=== PATIENT | female | born 1935 | race Caucasian/White ===

== ENCOUNTER → 2016-06-16 | Outpatient (CLI) | payer BC ==
--- NOTE | 2016-06-16 13:19 | MAMMOGRAPHY REPORT ---
BILATERAL DIGITAL SCREENING MAMMOGRAM WITH CAD: 06/16/2016 CLINICAL HISTORY: Routine screening. Patient has no complaints. TECHNIQUE: Bilateral CC and MLO views were obtained. Current study was also evaluated with a Comput er Aided Detection (CAD) system. COMPARISON: Comparison is made to exams dated: 06/13/2015 mammogram, 06/12/2014 mammogram, 06/08/2013 mammogram, 06/07/2012 mammogram, 06/10/2011 mammogram, and 06/10/2011 ultrasound - [facility]. BREAST COMPOSITION: The tissue of both breasts is heterogeneously dense, which may obscure small ma sses. FINDINGS: There are benign coarse calcifications within the left breast. Stable intramammary lymph nodes in each upper outer quadrant. No suspicious mass, architectural distortion or cluster of new, suspicious microcalcifications is seen. IMPRESSION: ACR BI-RADS CATEGORY 1: NEGATIVE There is no mammographic evidence of malignancy. A 1 year screening mammogram is recommended. The p atient will receive written notification of the results. Approximately 10% of breast cancers are not detected with mammography. A negative mammographic repor t should not delay biopsy if a clinically suggestive mass is present. Ashley Jimenez M.D. ay/:06/16/2016 08:01:23 Microbiology Laboratory Manager: Fiona GREEN(Kalyani)(Ross[place]), [facility] letter sent: Normal 1/2 BI-RADS Code: ACR BI-RADS Category 1: Negative
== END | disposition home or self-care (01) ==
LOC: C.MAMM 07:45
PROVIDERS: ATTEND Family Medicine
DX: Z12.31 Encounter for screening mammogram for malignant neoplasm of breast (principal)

== ENCOUNTER → 2017-06-22 | Outpatient (CLI) | payer BC ==
--- NOTE | 2017-06-23 15:30 | MAMMOGRAPHY REPORT ---
BILATERAL DIGITAL SCREENING MAMMOGRAM TOMOSYNTHESIS WITH CAD: 06/22/2017 CLINICAL HISTORY: Routine screening. Patient has no complaints. TECHNIQUE: Breast tomosynthesis in addition to standard 2D mammography was performed. Current study was also evaluated with a Computer Aided Detection (CAD) system. COMPARISON: Comparison is made to exams dated: 06/16/2016 mammogram, 06/13/2015 mammogram, 06/12/2014 m ammogram, 06/08/2013 mammogram, 06/07/2012 mammogram, and 06/04/2011 mammogram - [facility]. BREAST COMPOSITION: The tissue of both breasts is heterogeneously dense, which may obscure small mas ses. FINDINGS: The parenchymal pattern is similar to prior mammograms. There are stable benign coarse an d round calcifications in the breasts. No developing mass, architectural distortion or cluster of hernandez spicious microcalcifications is seen in either breast. IMPRESSION: ACR BI-RADS CATEGORY 2: BENIGN There is no mammographic evidence of malignancy. A 1 year screening mammogram is recommended. The pa tient will receive written notification of the results. Approximately 10% of breast cancers are not detected with mammography. A negative mammographic report should not delay biopsy if a clinically suggestive mass is present. Ashley Jimenez M.D. ay/:06/22/2017 15:26:14 Database Consultant: Aminta GREEN(Kalyani)(M), [facility] letter sent: Normal 1/2 BI-RADS Code: ACR BI-RADS Category 2: Benign
== END | disposition home or self-care (01) ==
LOC: C.MAMM 10:04
PROVIDERS: ATTEND Family Medicine
DX: Z12.31 Encounter for screening mammogram for malignant neoplasm of breast (principal)

== ENCOUNTER 2018-09-07 09:24 | Inpatient (IN) ==
--- OUTSIDE RECORDS SUMMARY | 2018-09-07 09:27 | External Medical Summary | Continuity of Care Document ---
:1935 Author Name Jannette Prado, Provider Address Unavailable Unavailable , Care Team Providers Name Role Phone Case Patricia BROCK Unavailable [email or web address] Unavailable Unavailable Assessments Assessed Problems:Ischemic stroke Problems Ischemic stroke (434.91) (I63.9) Hypothyroidism (244.9) (E03.9) Hyperlipidemia (272.4) (E78.5) Hypertension (401.9) (I10) Type 2 diabetes mellitus (250.00) (E11.9) Allergies and Adverse Reactions No Known Drug Allergies (Allergy) Medications Lisinopril-hydroCHLOROthiazide 20-12.5 MG Oral Tablet; TAKE 1 TABLET DAILY. Refills: 0 Magnesium 200 MG Oral Tablet; TAKE 1 TABLET DAILY DIRECTE D. Refills: 0 Vitamin D3 1000 UNIT Oral Capsule; TAKE DIRECTED. Refills: 0 Flaxseed Oil 1000 MG Oral Capsule; TAKE DIRECTED. Refills: 0 Vwslp-Nr-Xzzs TABS; USE DIRECTED. Refills: 0 Multi-Vitamins Oral Tablet; TAKE 1 TABLET DAILY. Refills: 0 Calcium 600+D Plus Minerals TABS; TAKE 1 TABLET DAILY DIR ECTED. Refills: 0 Co Q10 100 MG Oral Capsule; TAKE 1 CAPSULE Daily Refills: 0 Levothyroxine Sodium 175 MCG Oral Tablet; TAKE 1 TABLET FELICIA Y. Quantity: 90 Refills: 3 Clopidogrel Bisulfate 75 MG Oral Tablet; TAKE 1 TABLET DAILY . 30 Tablet Bottle Refills: 0 Atorvastatin Calcium 40 MG Oral Tablet; TAKE 1 TABLET AT BED TIME. 90 Tablet Bottle Refills: 0 Aspirin 81 MG TABS; TAKE 1 TABLET DAILY. Refills: 3 metFORMIN HCl - 500 MG Oral Tablet; TAKE 1 TABLET TWICE FELICIA Y WITH FOOD. Refills: 0 Procedures History of Eye Surgery Status: Completed Immunizations Immunizations not documented Family History Mother No pertinent family history (V49.89) (Z78.9) Status: Active Social History - Smoking Status Never smoker Interventions Follow-ups/ReferralsFollow-up as needed; Done: 10 Feb 2018Discussion/SummaryLeft MCA ischemic stroke-this an 82-year-old female presents for follow-up with recent right-sided weakness and dysarthria. CT of the head was negative however she could not have an MRI due to coil behind the right eye. Clinical symptoms fit with left MCA territory. She has mild carotid stenosis and moderate right vertebral artery stenosis, recommend continue with medical therapy. She was on aspirin and Plavix was added. This is recommended for 2-3 months then discontinue aspirin and continue Plavixfor secondary stroke prevention. Continue statin for stroke prevention. She was counseled about regular exercise and healthy diet.Continue control of vascular risk factors including blood pressure goal 110/70 to 120/80, LDL less than 100, total cholesterol 100-200, hemoglobin A1c less than 6.5 percent. Continue home health therapies including speech therapy. Continue assistive device for the time being until cleared by therapy. Follow up with Neurology as needed. Plan of Treatment Planned Observations Planned Goals not documented Results No Known Results Results not documented Encounters Appointment; Case, DELMY Gomez 10-Feb-2018 15:00 Encounter Diagnosis: Problem not documented
[2018-09-07 10:27] LABS: Appearance Urine Cloudy (Clear); Bacteria Urine Automated 3+ (Negative); Bilirubin Urine Negative (Negative); Blood Urine Trace (Negative); Color Urine Yellow; Epithelial Cell Urine Auto >30 /lpf (0-5); Glucose Urine UA Negative (Negative); Ketones Urine Trace (Negative); Leukocyte Esterase Urine 1+ (Negative); Nitrite Urine Positive (Negative); Protein Urine Negative (Negative); RBC Urine Automated 0-4 /hpf (0-4); Specific Gravity Urine 1.021 (1.000-1.030); Urobilinogen Urine Negative (Negative)
[2018-09-07 10:55] LABS: Basophils # (auto) 0.03 K/uL (0-0.2); Basophils % (auto) 0.3 %; Eosinophils # (auto) 0.05 K/uL (0-0.5); Eosinophils % (auto) 0.5 %; Hematocrit (blood only) 33.5 % (37-47); Hemoglobin 11.1 g/dL (12.0-16.0); Immature Granulocytes # (auto) 0.03 K/uL (0.00-0.02); Immature Granulocytes % (auto) 0.3 %; Lymphocytes # (auto) 1.51 K/uL (1.2-3.4); Lymphocytes % (auto) 15.5 %; Mean Corpuscular Hgb Conc 33.1 g/dL (32-36); Mean Corpuscular Volume 81.1 fL (80-100); Mean Platelet Volume 9.5 fL (7.4-10.4); Monocytes # (auto) 0.72 K/uL (0.11-0.59); Monocytes % (auto) 7.4 %; Platelet Count 335 K/uL (130-400); RDW Coefficient of Variation 15.8 % (11.5-14.5); RDW Standard Deviation 46.7 fL (36.4-46.3); Red Blood Count 4.13 M/uL (4.2-5.4); White Blood Count 9.74 K/uL (4.8-10.8)
[2018-09-07 11:18] LABS: Alanine Aminotransferase 17 U/L (12-78); Albumin Level 3.2 gm/dl (3.4-5.0); Aspartate Aminotransferase 14 U/L (15-37); BUN Creatinine Ratio 22.5 (10-20); Blood Urea Nitrogen 36 mg/dl (7-18); Calcium 9.9 mg/dl (8.5-10.1); Carbon Dioxide 29 mmol/L (21-32); Chloride 100 mmol/L (98-107); Est GFR (African American) 34.4; Est GFR (Non-African American) 29.7; Glucose 98 mg/dl (70-99); Potassium 3.6 mmol/L (3.5-5.1); Sodium 135 mmol/L (136-145)
[2018-09-07 11:28] LABS: Albumin Globulin Ratio 0.8 (0.9-2); Alkaline Phosphatase 66 U/L (45-117); Bilirubin,Total 0.6 mg/dl (0.2-1); Globulin 4.2 gm/dl (2.5-4.0); Total Protein 7.4 gm/dl (6.4-8.2); Troponin I 0.129 ng/ml (0-0.045)
--- NOTE | 2018-09-07 11:38 | Ultrasound Report ---
ULTRASOUND RIGHT UPPER QUADRANT ABDOMEN CLINICAL HISTORY: Upper abdominal pain. COMPARISON STUDY: No priors. TECHNIQUE: Real-time, grayscale, and color flow sonography of the right upper quadrant of the abdomen was performed. Images are reviewed in the transverse and longitudinal planes. FINDINGS: Liver: The liver is normal in size and echotexture. There is no intrahepatic biliary ductal dilatatio n. The main portal vein is patent. Gallbladder: The gallbladder is normal in appearance. No gallstones are identified. There is no gallb ladder wall thickening or pericholecystic fluid. A sonographic Jones's sign is reportedly absent. Th e common bile duct measures up to 0.6 cm in diameter. Pancreas: Visualized portions of the pancreatic head and body are normal in appearance. The splenic v ein is patent. Right kidney: Survey images of the right kidney demonstrate normal size and echotexture. There is no hydronephrosis. Ascites: None. IMPRESSION: Unremarkable sonographic assessment of the right upper quadrant. No gallstones are identi fied. Electronically signed by: Carlos Atwood M.D. 09/07/2018 11:36 AM
--- NOTE | 2018-09-07 11:51 | XRay Report ---
PA CHEST WITH ABDOMINAL SERIES CLINICAL HISTORY: Generalized abdominal pain. FINDINGS: A PA chest radiograph is obtained. No prior studies are available for comparison at the time of dicta tion. The heart is top normal for projection. There is atherosclerotic calcification of the thoraci c aorta. The lungs appear hyperinflated. Nonspecific interstitial thickening is likely chronic. There is bibasilar scarring/atelectasis. No airspace consolidation or pleural effusion is identified. No p neumothorax is seen. The skeletal structures are osteopenic. The bony thorax is grossly intact. Degen erative change is noted in the shoulders and thoracic spine. Supine and erect abdominal radiographs are correlated with abdominal ultrasound dated 09/07/2018. Ther e is a nonobstructed abdominal bowel gas pattern. Moderate colonic fecal retention is observed. No ev idence of intraperitoneal free air is seen. There are no abnormal abdominal calcifications. There is mild lumbosacral spondylosis. The lumbosacral spine and bony pelvis appear intact. IMPRESSION: 1. No active disease in the chest. 2. Nonobstructed abdominal bowel gas pattern noting moderate colonic fecal retention. Electronically signed by: Carlos Atwood M.D. 09/07/2018 11:50 AM
[2018-09-07] MEDS ORDERED: cefTRIAXone SODIUM 2,000 MG in DEXTROSE 5% 50 ML IV STA (12:05)
--- NOTE | 2018-09-07 12:31 | CT Scan Report ---
CT SCAN OF THE ABDOMEN AND PELVIS WITHOUT IV CONTRAST CLINICAL HISTORY: Upper abdominal pain. COMPARISON STUDY: Abdominal radiographs ultrasound dated 09/07/2018. TECHNIQUE: CT scan of the abdomen and pelvis is performed from the lung bases to the proximal femora. Images are reviewed in the axial, sagittal, and coronal planes. IV contrast was not administered for this examination as per the referring clinician. Note that the examination was performed in suboptim al fashion without oral and IV contrast. A dose lowering technique was utilized adhering to the princ iplkye of [place]. CT DOSE: 291.25 mGy.cm FINDINGS: Lung bases: The heart is top normal in size and there is trace pericardial fluid. The lung bases are clear noting bibasilar scarring/atelectasis. Liver: The unenhanced liver is normal in size, contour, and attenuation. There is no intrahepatic ish iary ductal dilatation. Gallbladder: Unremarkable. Spleen: Normal in size and attenuation. Pancreas: The unenhanced pancreas is moderately atrophic and grossly unremarkable. Adrenal glands: Unremarkable. Kidneys: The unenhanced kidneys demonstrate cortical atrophy and are without hydronephrosis. There ar e no renal calculi identified. There is no evidence of contour deforming renal mass lesion. Abdominal vasculature: The abdominal aorta is normal in course and caliber noting moderate atheroscle rotic calcification. Bowel: There is moderate colonic fecal retention. No bowel obstruction is seen. There are scattered c olonic diverticula without CT evidence of acute diverticulitis. The appendix is normal as visualized . Peritoneum: There is no intraperitoneal free air or abdominal ascites. Lymphadenopathy: None. Pelvic viscera: The bladder, uterus, and adnexa are normal as imaged. Skeletal structures: The skeletal structures are osteopenic. There is [id number] lumbosacral sp ondylosis and scoliosis. No lytic or blastic lesions are seen. IMPRESSION: 1. Suboptimal examination without oral and IV contrast. 2. There are no acute infectious or inflammatory findings in the abdomen or pelvis. 3. Moderate constipation. 4. Additional findings as above. Electronically signed by: Carlos Atwood M.D. 09/07/2018 12:30 PM
--- NOTE | 2018-09-07 14:18 | History & Physical Report ---
Date of Service September 07, 2018 Assessment & Plan (1) Elevated troponin: concerning for possible ACS vs demand ischemia vs unstable angina vs elevated due to renal failure. would continue to trend serial troponin and EKG, patient is chest pain free with non-specific EKG changes. IF troponin remains elevated would consider clamp truck driver consult. continue ASA and plavix. start low dose beta leonor (2) Upper abdominal pain: likely 2/[address] scan negative for gallbladder or obstruction. continue supportive therapy with bowel regimen, antiemetics and pain control tylenol Present on Admission?: Yes (3) UTI (urinary tract infection): Continue IV antibiotics with rocephin. follow up urine cultures. gentle IV fluid hydration Present on Admission?: Yes (4) T2DM (type 2 diabetes mellitus): continue Insulin Sliding scale with accucheck monitoring Present on Admission?: Yes (5) HTN (hypertension): stable HOLD lisinopril due to renal failure Present on Admission?: Yes (6) Carotid stenosis, bilateral: Present on Admission?: Yes (7) CVA (cerebral vascular accident): stable on ASA/ plavix (8) Constipation: aggressive bowel regimen with colace, senna, miralax Present on Admission?: Yes (9) Acute kidney injury: likely due to infection. should improve once urinary tract infection has been adequately treated. continue IV fluids and Rocephin. trend closely and avoid nephrotoxic agents. Present on Admission?: Yes History of Present Illness Chief Complaint: fever, weakness, chest pain Primary Care Provider: Jaguar Kelly 82y/o F PmHx CAD, DMII, CVA, HTN, Carotid stenosis, Who presented to the ED with complaint of fever, generalized weakness, Poor appetite and chest pain over several days. Patient herself does not have any complaints at this time. Her son states that she had poor appetite and complained of lower chest pain and right upper abdominal pain. Subjective fever at home. Here in ED, tempt was normal. Labs showed troponin of 0.129 EKG showed nonspecific T wave changes, no ST abnormalities. Urinalysis showed many WBC, positive nitrite / LE She was given 1 dose of rocephin IV. Allergies Allergy/AdvReac Type Severity Reaction Status Date / Time SULFA Allergy Unknown Unknown Uncoded 09/07/18 10:43 VANTINE Allergy Unknown Unknown Uncoded 09/07/18 10:43 Home Medications Home Medications Medication Instructions Recorded Confirmed Type Calcium 600 + D(3) 1 tab PO PM 01/03/18 09/07/18 History aspirin [Aspir-81] 81 mg PO PM 01/03/18 09/07/18 History nmqtktpbpoz-F7-Pekwfvmuy serr 2 tab PO PM #0 01/03/18 09/07/18 History [Osteo Bi-Flex (5-Loxin)] multivitamin [Multiple Vitamins] 1 tab PO PM 01/03/18 09/07/18 History clopidogrel 75 mg PO QAM #30 tab 01/06/18 09/07/18 Rx flaxseed oil 1,000 mg PO Q OTHER DAY 09/07/18 09/07/18 History levothyroxine 137 mcg PO QAM 09/07/18 09/07/18 History lisinopril 20 mg PO QAM MDD qam 09/07/18 09/07/18 History Past Med/Surg History Medical History Diabetes Dyslipidemia Hypertension Hypothyroidism Surgical History History of cataract surgery Family History Mother , age 69 with heart disease No problems noted. Father No problems noted. Other Family history non-contributory Social History Preferred Language: Swedish Communication Ability: Effective Beliefs That Will Affect Care: None Current Living Situation: Family Current Living Situation Comment: with son Feels Safe at Home: Yes Smoking Status: Never smoker Hx Alcohol Use: No Hx Substance Use: No Review of Systems Constitutional: + fever, + chills and + weakness Eyes: no decreased night vision, no eye pain and no photophobia Ear, Nose, Mouth, Throat: no dizziness Respiratory: no dyspnea and no dyspnea on exertion Cardiovascular: + chest pain Gastrointestinal: + abdominal pain; no heartburn and no vomiting Integumentary: no rash Neurologic: + generalized weakness Physical Exam 2 Constitutional: WD/WN, vitals as above well developed, well nourished and cooperative; no acute distress Eyes: PERRL, conjunctivae normal, anicteric sclerae ENMT: external ear and nose normal, oropharynx normal Respiratory: normal respiratory effort, lungs clear to auscultation Cardiovascular: RRR, no murmur, no edema Chest (Breasts): normal inspection/palpation of breasts Gastrointestinal (Abdomen): normal bowel sounds, soft, nontender, no hepatosplenomegaly Musculoskeletal: no cyanosis or clubbing, extremities motor strength 5/5 Skin: no rashes, warm and dry Neurologic: PERRL, EOMI, accommodation nl, no face palsy, no dysarthria difficulty hearing Psychiatric: A+Ox3, euthymic affect Results & Data Vital Signs (Past 12 Hours) Vital Signs Temp Pulse Resp BP Pulse Ox 09/07/18 13:20 76 17 98 09/07/18 13:10 73 19 98 09/07/18 13:00 70 21 170/69 H 98 09/07/18 12:50 82 20 98 09/07/18 12:40 80 22 97 09/07/18 12:31 85 27 H 98 09/07/18 12:30 83 16 147/83 H 99 09/07/18 12:21 81 17 09/07/18 11:00 68 16 09/07/18 10:50 66 15 09/07/18 10:40 69 17 09/07/18 10:30 69 18 09/07/18 10:20 67 18 96 09/07/18 10:10 71 16 97 09/07/18 10:01 77 18 124/45 L 98 09/07/18 10:00 78 16 97 09/07/18 09:53 73 18 97 09/07/18 09:49 75 20 117/60 98 09/07/18 09:31 36.7 C 91 H 20 83/58 L 98 Laboratory Results 09/07/18 10:44 09/07/18 10:[address] SCAN OF THE ABDOMEN AND PELVIS WITHOUT IV CONTRAST CLINICAL HISTORY: Upper abdominal pain. COMPARISON STUDY: Abdominal radiographs ultrasound dated 09/07/2018. TECHNIQUE: CT scan of the abdomen and pelvis is performed from the lung bases to the proximal femora. Images are reviewed in the axial, sagittal, and coronal planes. IV contrast was not administered for this examination as per the referring clinician. Note that the examination was performed in suboptimal fashion without oral and IV contrast. A dose lowering technique was utilized adhering to the principles of ALARA. CT DOSE: 291.25 mGy.cm FINDINGS: Lung bases: The heart is top normal in size and there is trace pericardial fluid. The lung bases are clear noting bibasilar scarring/atelectasis. Liver: The unenhanced liver is normal in size, contour, and attenuation. There is no intrahepatic biliary ductal dilatation. Gallbladder: Unremarkable. Spleen: Normal in size and attenuation. Pancreas: The unenhanced pancreas is moderately atrophic and grossly unremarkable. Adrenal glands: Unremarkable. Kidneys: The unenhanced kidneys demonstrate cortical atrophy and are without hydronephrosis. There are no renal calculi identified. There is no evidence of contour deforming renal mass lesion. Abdominal vasculature: The abdominal aorta is normal in course and caliber noting moderate atherosclerotic calcification. Bowel: There is moderate colonic fecal retention. No bowel obstruction is seen. There are scattered colonic diverticula without CT evidence of acute diverticulitis. The appendix is normal as visualized. Peritoneum: There is no intraperitoneal free air or abdominal ascites. Lymphadenopathy: None. Pelvic viscera: The bladder, uterus, and adnexa are normal as imaged. Skeletal structures: The skeletal structures are osteopenic. There is uznn-yh-tvfevpno lumbosacral spondylosis and scoliosis. No lytic or blastic lesions are seen. IMPRESSION: 1. Suboptimal examination without oral and IV contrast. 2. There are no acute infectious or inflammatory findings in the abdomen or pelvis. 3. Moderate constipation. 4. Additional findings as above. ULTRASOUND RIGHT UPPER QUADRANT ABDOMEN CLINICAL HISTORY: Upper abdominal pain. COMPARISON STUDY: No priors. TECHNIQUE: Real-time, grayscale, and color flow sonography of the right upper quadrant of the abdomen was performed. Images are reviewed in the transverse and longitudinal planes. FINDINGS: Liver: The liver is normal in size and echotexture. There is no intrahepatic biliary ductal dilatation. The main portal vein is patent. Gallbladder: The gallbladder is normal in appearance. No gallstones are identified. There is no gallbladder wall thickening or pericholecystic fluid. A sonographic Jones's sign is reportedly absent. The common bile duct measures up to 0.6 cm in diameter. Pancreas: Visualized portions of the pancreatic head and body are normal in appearance. The splenic vein is patent. Right kidney: Survey images of the right kidney demonstrate normal size and echotexture. There is no hydronephrosis. Ascites: None. IMPRESSION: Unremarkable sonographic assessment of the right upper quadrant. No gallstones are identified. PA CHEST WITH ABDOMINAL SERIES CLINICAL HISTORY: Generalized abdominal pain. FINDINGS: A PA chest radiograph is obtained. No prior studies are available for comparison at the time of dictation. The heart is top normal for projection. There is atherosclerotic calcification of the thoracic aorta. The lungs appear hyperinflated. Nonspecific interstitial thickening is likely chronic. There is bibasilar scarring/atelectasis. No airspace consolidation or pleural effusion is identified. No pneumothorax is seen. The skeletal structures are osteopenic. The bony thorax is grossly intact. Degenerative change is noted in the shoulders and thoracic spine. Supine and erect abdominal radiographs are correlated with abdominal ultrasound dated 09/07/2018. There is a nonobstructed abdominal bowel gas pattern. Moderate colonic fecal retention is observed. No evidence of intraperitoneal free air is seen. There are no abnormal abdominal calcifications. There is mild lumbosacral spondylosis. The lumbosacral spine and bony pelvis appear intact. IMPRESSION: 1. No active disease in the chest. 2. Nonobstructed abdominal bowel gas pattern noting moderate colonic fecal retention. PG Care Time/CCT Total # of Minutes Spent Total Time Spent with Patient: Total time spent is greater than 50% in coordination of care (as documented) at patient's floor/unit and/or counseling patient: (1) UTI (urinary tract infection) Hematuria presence: without hematuria Urinary tract infection type: site unspecified Qualified Code(s): N39.0 - Urinary tract infection, site not specified (2) CVA (cerebral vascular accident) CVA mechanism: unspecified Qualified Code(s): I63.9 - Cerebral infarction, unspecified
[2018-09-07] MEDS ORDERED: GLUCOSE 40% GEL 15 GM TUBE PO PRN (16:01)
[2018-09-07] MEDS ORDERED: DEXTROSE 50% 50 ML SYRINGE IV PRN (16:01)
[2018-09-07] MEDS ORDERED: ACETAMINOPHEN 325 MG TAB PO PRN (16:01)
[2018-09-07] MEDS ORDERED: NON-FORMULARY MEDICATION (Flaxseed Oil 1,000 MG) PO SCH (16:01)
[2018-09-07] MEDS ORDERED: ONDANSETRON INJ 2 MG/ML 2 ML VIAL IV PRN (16:01)
[2018-09-07] MEDS ORDERED: CARBOHYDRATES FOR HYPOGLYCEMIA PO PRN (16:01)
[2018-09-07] MEDS ORDERED: SODIUM CHLORIDE 0.9% 1000ML 1,000 ML IV SCH (16:01)
[2018-09-07] MEDS ORDERED: GLUCOSE 10 TABS/TUBE PO PRN (16:01)
[2018-09-07] MEDS ORDERED: ALUMINUM/MAGNESIUM SUSP 30 ML UDC PO PRN (16:01)
[2018-09-07] MEDS ORDERED: GLUCAGON FOR INJ 1 MG VIAL SQ PRN (16:01)
[2018-09-07] MEDS ORDERED: PHARMACY GLYCEMIC MGMT CONSULT PRN (16:18)
[2018-09-07] MEDS ORDERED: cloNIDine HCl 0.1 MG TAB PO ONE (16:19)
--- NOTE | 2018-09-07 16:44 | Emergency Department Note ---
Entered by Nicole Suarez acting as a scribe for Gregg Smith MD History of Present Illness General Chief complaint: Weakness Stated complaint: WEAKNESS,NOT EATING, HX OF STROKE 01/16 Source: patient and family History of Present Illness Provider complaint: upper abdominal pain Onset (ago): day(s) 2 Location: abdomen Quality: + dull Associated symptoms: + denies other symptoms (diarrhea, black or bloody stools, and problems with urination) and + weakness; no fever/chills, no nausea/vomiting and no shortness of breath The patient is an 82 year old female who presents to the Emergency Department with complaints of upper abdominal pain for the last 2 days. She states that her pain radiates to both sides and describes the pain as being dull. She states that her pain comes and goes. The patient reports that eating does not exacerbate her pain. The patient states that she has not eaten much over the last 2 days as she was not hungry. She denies a history of a cholecystectomy. The patient denies having shortness of breath, vomiting, fevers, diarrhea, black or bloody stools, and problems with urination. The patient states that she does feel generally weak. Her family states that the patient has barely eaten over the last 5 days. Home Medications Home Medications Medication Instructions Recorded Confirmed Type Calcium 600 + D(3) 1 tab PO PM 01/03/18 09/07/18 History aspirin [Aspir-81] 81 mg PO PM 01/03/18 09/07/18 History [id number]-Adrjkecni serr 2 tab PO PM #0 01/03/18 09/07/18 History [Osteo Bi-Flex (5-Loxin)] multivitamin [Multiple Vitamins] 1 tab PO PM 01/03/18 09/07/18 History clopidogrel 75 mg PO QAM #30 tab 01/06/18 09/07/18 Rx flaxseed oil 1,000 mg PO Q OTHER DAY 09/07/18 09/07/18 History levothyroxine 137 mcg PO QAM 09/07/18 09/07/18 History lisinopril 20 mg PO QAM MDD qam 09/07/18 09/07/18 History Allergies Allergy/AdvReac Type Severity Reaction Status Date / Time SULFA Allergy Unknown Unknown Uncoded 09/07/18 10:43 VANTINE Allergy Unknown Unknown Uncoded 09/07/18 10:43 Past Med/Surg History Medical History Diabetes Dyslipidemia Hypertension Hypothyroidism Surgical History History of cataract surgery Family History Mother , age 69 with heart disease No problems noted. Father No problems noted. Other Family history non-contributory Social History Preferred Language: [place] Communication Ability: Effective Beliefs That Will Affect Care: None Current Living Situation: Family Current Living Situation Comment: with son Feels Safe at Home: Yes Smoking Status: Never smoker Hx Alcohol Use: No Hx Substance Use: No Review of Systems See HPI for pertinent positives & negatives. and A total of 10 systems reviewed and were otherwise negative Physical Exam Vital Signs Vital Signs - 24 hr 09/07/18 09:31 09/07/18 09:38 09/07/18 09:49 Temperature 36.7 C Temperature Source Oral Sepsis Recent Fever Within 48 Hours No Sepsis New/Unexplained Change in Mental Status No Sepsis Action Taken by Nursing No Action Required Pulse Oximetry Post Tiitration 97 Pulse Rate 91 H 75 Pulse Rate from SpO2 Sensor 74 Respiratory Rate 20 20 Blood Pressure 83/58 L 117/60 Blood Pressure Mean 66 79 Pulse Oximetry 98 98 Oxygen Delivery Method Room Air Room Air 09/07/18 09:53 09/07/18 10:00 09/07/18 10:01 Temperature Temperature Source Sepsis Recent Fever Within 48 Hours Sepsis New/Unexplained Change in Mental Status Sepsis Action Taken by Nursing Pulse Oximetry Post Tiitration Pulse Rate 73 78 77 Pulse Rate from SpO2 Sensor 73 77 77 Respiratory Rate 18 16 18 Blood Pressure 124/45 L Blood Pressure Mean 71 Pulse Oximetry 97 97 98 Oxygen Delivery Method 09/07/18 10:10 09/07/18 10:20 09/07/18 10:30 Temperature Temperature Source Sepsis Recent Fever Within 48 Hours Sepsis New/Unexplained Change in Mental Status Sepsis Action Taken by Nursing Pulse Oximetry Post Tiitration Pulse Rate 71 67 69 Pulse Rate from SpO2 Sensor 71 68 Respiratory Rate 16 18 18 Blood Pressure Blood Pressure Mean Pulse Oximetry 97 96 Oxygen Delivery Method Room Air 09/07/18 10:40 09/07/18 10:50 09/07/18 11:00 Temperature Temperature Source Sepsis Recent Fever Within 48 Hours Sepsis New/Unexplained Change in Mental Status Sepsis Action Taken by Nursing Pulse Oximetry Post Tiitration Pulse Rate 69 66 68 Pulse Rate from SpO2 Sensor Respiratory Rate 17 15 16 Blood Pressure Blood Pressure Mean Pulse Oximetry Oxygen Delivery Method 09/07/18 12:21 09/07/18 12:30 09/07/18 12:31 Temperature Temperature Source Sepsis Recent Fever Within 48 Hours Sepsis New/Unexplained Change in Mental Status Sepsis Action Taken by Nursing Pulse Oximetry Post Tiitration Pulse Rate 81 83 85 Pulse Rate from SpO2 Sensor 84 85 Respiratory Rate 17 16 27 H Blood Pressure 147/83 H Blood Pressure Mean 104 Pulse Oximetry 99 98 Oxygen Delivery Method 09/07/18 12:40 09/07/18 12:50 09/07/18 13:00 Temperature Temperature Source Sepsis Recent Fever Within 48 Hours Sepsis New/Unexplained Change in Mental Status Sepsis Action Taken by Nursing Pulse Oximetry Post Tiitration Pulse Rate 80 82 70 Pulse Rate from SpO2 Sensor 80 81 72 Respiratory Rate 22 20 21 Blood Pressure 170/69 H Blood Pressure Mean 102 Pulse Oximetry 97 98 98 Oxygen Delivery Method 09/07/18 13:10 09/07/18 13:20 09/07/18 13:30 Temperature Temperature Source Sepsis Recent Fever Within 48 Hours Sepsis New/Unexplained Change in Mental Status Sepsis Action Taken by Nursing Pulse Oximetry Post Tiitration Pulse Rate 73 76 91 H Pulse Rate from SpO2 Sensor 73 76 92 H Respiratory Rate 19 17 18 Blood Pressure Blood Pressure Mean Pulse Oximetry 98 98 99 Oxygen Delivery Method 09/07/18 13:31 09/07/18 13:40 09/07/18 13:50 Temperature Temperature Source Sepsis Recent Fever Within 48 Hours Sepsis New/Unexplained Change in Mental Status Sepsis Action Taken by Nursing Pulse Oximetry Post Tiitration Pulse Rate 87 94 H 84 Pulse Rate from SpO2 Sensor 89 96 H 84 Respiratory Rate 20 15 19 Blood Pressure 156/90 H 156/90 H Blood Pressure Mean 112 112 Pulse Oximetry 98 98 97 Oxygen Delivery Method 09/07/18 14:00 09/07/18 14:10 09/07/18 14:22 Temperature Temperature Source Sepsis Recent Fever Within 48 Hours Sepsis New/Unexplained Change in Mental Status Sepsis Action Taken by Nursing Pulse Oximetry Post Tiitration Pulse Rate 80 90 106 H Pulse Rate from SpO2 Sensor 80 92 H Respiratory Rate 19 22 18 Blood Pressure 178/74 H Blood Pressure Mean 108 Pulse Oximetry 98 98 Oxygen Delivery Method 09/07/18 14:23 09/07/18 14:30 09/07/18 14:31 Temperature Temperature Source Sepsis Recent Fever Within 48 Hours Sepsis New/Unexplained Change in Mental Status Sepsis Action Taken by Nursing Pulse Oximetry Post Tiitration Pulse Rate 83 84 79 Pulse Rate from SpO2 Sensor 83 84 80 Respiratory Rate 19 19 20 Blood Pressure 176/87 H 158/76 H Blood Pressure Mean 116 103 Pulse Oximetry 96 97 98 Oxygen Delivery Method 09/07/18 14:40 09/07/18 14:50 09/07/18 15:00 Temperature Temperature Source Sepsis Recent Fever Within 48 Hours Sepsis New/Unexplained Change in Mental Status Sepsis Action Taken by Nursing Pulse Oximetry Post Tiitration Pulse Rate 85 85 89 Pulse Rate from SpO2 Sensor 82 83 90 Respiratory Rate 16 24 23 Blood Pressure Blood Pressure Mean Pulse Oximetry 98 98 98 Oxygen Delivery Method 09/07/18 15:02 09/07/18 15:10 Temperature Temperature Source Sepsis Recent Fever Within 48 Hours Sepsis New/Unexplained Change in Mental Status Sepsis Action Taken by Nursing Pulse Oximetry Post Tiitration Pulse Rate 80 71 Pulse Rate from SpO2 Sensor 79 73 Respiratory Rate 18 21 Blood Pressure 180/65 H Blood Pressure Mean 103 Pulse Oximetry 98 98 Oxygen Delivery Method Constitutional: Vital signs reviewed. Eyes: Pupils are equal round reactive to light. Conjunctiva are noninjected. ENT: Pharynx is clear without erythema or exudate. Mucous membranes are moist. Neck supple without meningeal signs. Respiratory: Clear to auscultation bilaterally. Breath sounds are equal bilaterally. Cardiovascular: Regular rate and rhythm. No rubs or gallops. GI: Soft, nondistended and nontender. Bowel sounds are present. Musculoskeletal: No peripheral edema. No lower extremity tenderness. No CVA tenderness. Integumentary: No cyanosis. Neurological: The patient is awake and alert. No focal deficits. Psychiatric: Normal affect. Course 0958: The patient was evaluated in room A4B. A history and physical were performed. 1205: I spoke to the patient and her son about her test results. I advised her to stay. She says that she has no pain in her abdomen or chest and she is agreeable to a CT scan to evaluate for a possible stone. When the patient was hospitalized in December 2017, she was noted to have a positive trop at this time. She had an echocardiogram that did not show any wall motion abnormalities. She had no complaints and was discharged. 1244: I discussed her CT results with them. We will do a repeat ECG. 1249: I discussed the patient's case with Dr. Cabrera who will evaluate the patient for further management. Consultations Consultation #1: Dr. Cabrera Time: 12:49 Administered Medications Discontinued Medications Ceftriaxone Sodium 2,000 mg/ (Dextrose) 70 mls @ 100 mls/hr IV NOW STA Stop: 09/07/18 12:46 Last Infusion: 09/07/18 13:09 Dose: 0 mls/hr Documented by: [id number] Admin: 09/07/18 12:27 Dose: 100 mls/hr Documented by: [id number] Medical Decision Making Differential Diagnosis Differentials include cholelithiasis, cholecystitis, PUD, pancreatitis, cardiac, bowel obstruction, and mesenteric ischemia. Medical Records Attestation: I reviewed the patient's medical records. I did perform a limited focused review of portions of the patient's old chart on the electronic medical record. The patient was seen in April for memory problems and diagnosed with anemia and elevated blood pressure. Home Medications Current Medication List: was personally reviewed by me Laboratory Data Attestation: I reviewed the patient's lab results. Result diagrams: 09/07/18 10:44 09/07/18 10:44 Lab Results 09/07/18 09/07/18 09/07/18 Range/Units 09:50 10:44 10:44 WBC 9.74 (4.8-10.8) K/uL RBC 4.13 L (4.2-5.4) M/uL Hgb 11.1 L (12.0-16.0) g/dL Hct 33.5 L (37-47) % MCV 81.1 (80-100) fL MCH 26.9 (25-34) pg MCHC 33.1 (32-36) g/dL RDW Std Deviation 46.7 H (36.4-46.3) fL RDW Coeff of Michaela 15.8 H (11.5-14.5) % Plt Count 335 (130-400) K/uL MPV 9.5 (7.4-10.4) fL Immature Gran % (Auto) 0.3 % Neut % (Auto) 76.0 % Lymph % (Auto) 15.5 % [place] % (Auto) 7.4 % Eos % (Auto) 0.5 % Baso % (Auto) 0.3 % Immature Gran # (Auto) 0.03 H (0.00-0.02) K/uL Neut # (Auto) 7.40 H (1.4-6.5) K/uL Lymph # (Auto) 1.51 (1.2-3.4) K/uL [place] # (Auto) 0.72 H (0.11-0.59) K/uL Eos # (Auto) 0.05 (0-0.5) K/uL Baso # (Auto) 0.03 (0-0.2) K/uL Sodium 135 L (136-145) mmol/L Potassium 3.6 (3.5-5.1) mmol/L Chloride 100 (98-107) mmol/L Carbon Dioxide 29 (21-32) mmol/L Anion Gap 6.0 (3-11) BUN 36 H (7-18) mg/dl Creatinine 1.59 H (0.6-1.2) mg/dl Est Cr Clr Drug Dosing Not Reportable Est GFR ( Amer) 34.4 Est GFR (Non-Af Amer) 29.7 BUN/Creatinine Ratio 22.5 H (10-20) Glucose 98 (70-99) mg/dl Calcium 9.9 (8.5-10.1) mg/dl Total Bilirubin 0.6 (0.2-1) mg/dl AST 14 L (15-37) U/L ALT 17 (12-78) U/L Alkaline Phosphatase 66 (45-117) U/L Troponin I 0.129 H* (0-0.045) ng/ml Total Protein 7.4 (6.4-8.2) gm/dl Albumin 3.2 L (3.4-5.0) gm/dl Globulin 4.2 H (2.5-4.0) gm/dl Albumin/Globulin Ratio 0.8 L (0.9-2) Lipase 263 (73-393) U/L Urine Color Yellow Urine Appearance Cloudy A (Clear) Urine pH 5.0 (4.5-7.5) Ur Specific [place] 1.021 (1.000-1.030) Urine Protein Negative (Negative) Urine Glucose (UA) Negative (Negative) Urine Ketones Trace H (Negative) Urine Blood Trace H (Negative) Urine Nitrite Positive A (Negative) Urine Bilirubin Negative (Negative) Urine Urobilinogen Negative (Negative) Ur Leukocyte Esterase 1+ H (Negative) Urine WBC (Auto) 10-30 H (0-5) /hpf Urine RBC (Auto) 0-4 (0-4) /hpf U Hyaline Cast (Auto) 10-30 H (0-5) /lpf U Epithel Cells (Auto) >30 H (0-5) /lpf Urine Bacteria (Auto) 3+ H (Negative) Imaging Data Radiologist's Impression: Radiology results as stated below per my review and the radiologist's interpretation: PA CHEST WITH ABDOMINAL SERIES CLINICAL HISTORY: Generalized abdominal pain. FINDINGS: A PA chest radiograph is obtained. No prior studies are available for comparison at the time of dictation. The heart is top normal for projection. There is atherosclerotic calcification of the thoracic aorta. The lungs appear hyperinflated. Nonspecific interstitial thickening is likely chronic. There is bibasilar scarring/atelectasis. No airspace consolidation or pleural effusion is identified. No pneumothorax is seen. The skeletal structures are osteopenic. The bony thorax is grossly intact. Degenerative change is noted in the shoulders and thoracic spine. Supine and erect abdominal radiographs are correlated with abdominal ultrasound dated 09/07/2018. There is a nonobstructed abdominal bowel gas pattern. Moderate colonic fecal retention is observed. No evidence of intraperitoneal free air is seen. There are no abnormal abdominal calcifications. There is mild lumbosacral spondylosis. The lumbosacral spine and bony pelvis appear intact. IMPRESSION: 1. No active disease in the chest. 2. Nonobstructed abdominal bowel gas pattern noting moderate colonic fecal retention. Electronically signed by: Carlos Atwood M.D. 09/07/2018 11:50 AM ULTRASOUND RIGHT UPPER QUADRANT ABDOMEN CLINICAL HISTORY: Upper abdominal pain. COMPARISON STUDY: No priors. TECHNIQUE: Real-time, grayscale, and color flow sonography of the right upper quadrant of the abdomen was performed. Images are reviewed in the transverse and longitudinal planes. FINDINGS: Liver: The liver is normal in size and echotexture. There is no intrahepatic biliary ductal dilatation. The main portal vein is patent. Gallbladder: The gallbladder is normal in appearance. No gallstones are identified. There is no gallbladder wall thickening or pericholecystic fluid. A sonographic Jones's sign is reportedly absent. The common bile duct measures up to 0.6 cm in diameter. Pancreas: Visualized portions of the pancreatic head and body are normal in appearance. The splenic vein is patent. Right kidney: Survey images of the right kidney demonstrate normal size and echotexture. There is no hydronephrosis. Ascites: None. IMPRESSION: Unremarkable sonographic assessment of the right upper quadrant. No gallstones are identified. Electronically signed by: Carlos Atwood M.D. 09/07/2018 11:[address] SCAN OF THE ABDOMEN AND PELVIS WITHOUT IV CONTRAST CLINICAL HISTORY: Upper abdominal pain. COMPARISON STUDY: Abdominal radiographs ultrasound dated 09/07/2018. TECHNIQUE: CT scan of the abdomen and pelvis is performed from the lung bases to the proximal femora. Images are reviewed in the axial, sagittal, and coronal planes. IV contrast was not administered for this examination as per the referring clinician. Note that the examination was performed in suboptimal fashion without oral and IV contrast. A dose lowering technique was utilized adhering to the principles of ALARA. CT DOSE: 291.25 mGy.cm FINDINGS: Lung bases: The heart is top normal in size and there is trace pericardial fluid. The lung bases are clear noting bibasilar scarring/atelectasis. Liver: The unenhanced liver is normal in size, contour, and attenuation. There is no intrahepatic biliary ductal dilatation. Gallbladder: Unremarkable. Spleen: Normal in size and attenuation. Pancreas: The unenhanced pancreas is moderately atrophic and grossly unremarkable. Adrenal glands: Unremarkable. Kidneys: The unenhanced kidneys demonstrate cortical atrophy and are without hydronephrosis. There are no renal calculi identified. There is no evidence of contour deforming renal mass lesion. Abdominal vasculature: The abdominal aorta is normal in course and caliber noting moderate atherosclerotic calcification. Bowel: There is moderate colonic fecal retention. No bowel obstruction is seen. There are scattered colonic diverticula without CT evidence of acute diverticulitis. The appendix is normal as visualized. Peritoneum: There is no intraperitoneal free air or abdominal ascites. Lymphadenopathy: None. Pelvic viscera: The bladder, uterus, and adnexa are normal as imaged. Skeletal structures: The skeletal structures are osteopenic. There is [id number] lumbosacral spondylosis and scoliosis. No lytic or blastic lesions are seen. IMPRESSION: 1. Suboptimal examination without oral and IV contrast. 2. There are no acute infectious or inflammatory findings in the abdomen or pelvis. 3. Moderate constipation. 4. Additional findings as above. Electronically signed by: Carlos Atwood M.D. 09/07/2018 12:30 PM ECG Data Attestation: I personally reviewed and interpreted this ECG as follows: Indication: abdominal pain Rate (beats per minute): 79 Rhythm: normal sinus Findings: no PVC and no ST elevation Additional Comments: repeat ECG: NSR 83, no ST elevation, left axis deviation, no PVCs Blood Pressure Blood Pressure Findings: Low blood pressure MDM Narrative I did evaluate the patient as noted above. The patient is presenting with lower chest pain and upper abdominal pain for the past 2 days. She states it is not related to eating, but states that she has not been eating very much over the past several days. She has no abdominal tenderness on palpation of her abdomen. She denies fever or vomiting. She denies shortness of breath or diaphoresis. IV access was established. The patient was placed on a continuous monitor technician. I did order and personally review the patient's 12-lead EKG as de scribed above. She has no evidence of acute ischemia on twelve-lead EKG. I did order and personally reviewed the images of the patient's abdominal/chest x-ray as described above. There is no acute cardiopulmonary process. There is no evidence of obstruction. She does appear constipated. I did order a urine analysis. She does have an infection. A urine culture was sent. I did treat her with ceftriaxone IV. I did order and review the patient's blood work as noted in the electronic medical record. Her white count is not elevated. She is anemic. Creatinine is 1.59. LFTs are unremarkable. Troponin is elevated at 0.129. Right upper quadrant ultrasound was obtained which was unremarkable without gallbladder disease. I did order a CT of the abdomen and pelvis to evaluate for obstructive uropathy. I did review the images myself as well as the radiology report as described above. No acute process was noted. She does have constipation. I did reassess the patient again. She denies having any chest or abdominal pain at this time. Given her elevated troponin I did recommend h ospitalization for repeat cardiac biomarkers and further care. She was given IV ceftriaxone for her UTI. I did discuss the case with the hospitalist and supervisor case loading. Impression & Plan Upper abdominal pain, UTI (urinary tract infection), Elevated troponin Discharge Plan Visit Data *Final* Discharge Date/Time: 09/07/18 15:24 Chief Complaint: Weakness Stated Complaint: WEAKNESS,NOT EATING, HX OF STROKE 01/16 ED Provider: Gregg Smith Discharge Problem: Upper abdominal pain, UTI (urinary tract infection), Elevated troponin Patient Disposition: Admitted As Inpatient Discharge Instructions Interventions: ED Discharge Assessment Last Done: 09/07/18 15:24 Discharge Problem: UTI (urinary tract infection) Qualifiers: Urinary tract infection type: site unspecified Hematuria presence: without hematuria Qualified Code(s): N39.0 - Urinary tract infection, site not specified The scribe's documentation has been prepared under my direction and personally reviewed by me in its entirety. I confirm that the note above accurately reflects all work, treatment, procedures, and medical decision making performed by me.
[2018-09-07] MEDS: METOPROLOL SUCC 50MG EXT REL TAB PO SCH (17:03)
[2018-09-07 17:23] LABS: INR 1.1 (0.9-1.1); Partial Thromboplastin Time 27.5 Seconds (21.0-31.0); Prothrombin Time 11.6 Seconds (9.0-12.0)
[2018-09-07] MEDS: INSULIN ASPART 100 UNITS/ML 3 ML PEN SC SCH ×2 (19:33→21:14)
[2018-09-07] MEDS: CALCIUM 600MG + VIT D 400 IU TAB PO SCH (20:33)
[2018-09-07] MEDS: ASPIRIN 81 MG ECTAB PO SCH (20:33)
[2018-09-07] MEDS: MULTIVITAMIN TAB PO SCH (20:34)
[2018-09-07] MEDS ORDERED: GLUCOSAMINE D3 BOSWELLIA SERR PO SCH (21:00)
[2018-09-07] MEDS: ENOXAPARIN INJ 30 MG/0.3 ML SYR SQ SCH (21:31)
[2018-09-08] MEDS: LEVOTHYROXINE SODIUM 137 MCG TABLET PO SCH (05:49)
[2018-09-08] MEDS ORDERED: AMLODIPINE BESYLATE 5 MG TAB PO ONE (08:05)
[2018-09-08 08:23] LABS: Hematocrit (blood only) 32.8 % (37-47); Mean Corpuscular Hgb Conc 33.5 g/dL (32-36); Mean Corpuscular Volume 80.2 fL (80-100); Mean Platelet Volume 9.7 fL (7.4-10.4); Platelet Count 355 K/uL (130-400); RDW Coefficient of Variation 15.3 % (11.5-14.5); RDW Standard Deviation 44.8 fL (36.4-46.3); Red Blood Count 4.09 M/uL (4.2-5.4); White Blood Count 11.95 K/uL (4.8-10.8)
[2018-09-08] MEDS: cefTRIAXone SODIUM 1,000 MG in DEXTROSE 5% 50 ML IV SCH (08:30)
[2018-09-08] MEDS: CLOPIDOGREL BISULFATE 75 MG TAB PO SCH (08:31)
[2018-09-08] MEDS: METOPROLOL SUCC 50MG EXT REL TAB PO SCH (08:31)
[2018-09-08 08:55] LABS: Estimated Average Glucose 140 mg/dl; Hemoglobin A1C 6.5 % (4.5-5.6)
[2018-09-08 08:57] LABS: BUN Creatinine Ratio 23.9 (10-20); Calcium 9.6 mg/dl (8.5-10.1); Creatinine Clr Calc Pharmacy 34.1 ml/min; Est GFR (Non-African American) 47.4
[2018-09-08 09:02] LABS: Potassium 3.4 mmol/L (3.5-5.1)
[2018-09-08] MEDS: INSULIN ASPART 100 UNITS/ML 3 ML PEN SC SCH ×4 (09:18→21:33)
[2018-09-08] MEDS: POTASSIUM CHLORIDE 10 MEQ TABCR PO SCH ×2 (10:41→20:21)
--- NOTE | 2018-09-08 12:41 | Pharmacy Report ---
Glycemic Control Consultation - Date of Service September 08, 2018 - Scope Scope: Glycemic Pharmacist consulted by Dr Frost on 09/08/18 for glycemic control and to write orders per [facility] inpatient glycemic control protocol - Objective Weight: 65.5 kg Accuchecks BSG (last 24hrs): 09/07/18 09/07/18 09/08/18 18:24 20:09 07:55 Glucose POC Glucose 123 H 113 H 102 H 09/08/18 09/08/18 08:02 11:43 Glucose 98 POC Glucose 169 H Laboratory Data (last 24hrs): 09/08/18 08:02 Potassium 3.4 L Carbon Dioxide 27 Anion Gap 9.0 Creatinine 1.08 Est Cr Clr Drug Dosing 34.1 HbA1c: Hemoglobin A1c 6.5 % (4.5-5.6) H 09/08/18 07:49 - Recent Pertinent Medications Outpatient Anti-diabetic Regimen: * N/A - diet controlled? The patient is currently receiving: * Basal insulin: N/A * Correctional Insulin: Novolog Correction per scale ACHS Goal Range: Low 120 mg/dL - High 140 mg/dL Correction Factor: 35 mg/dL/unit * Prandial insulin: Per carb ratio of 1 unit per -- grams CHO consumed - Assessment & Plan Assessment & Plan: ASSESSMENT: * 82yo T2DM female with adequate outpatient control per A1c today. Pt does not take any anti-diabetic medications as an outpatient * A1c is diagnostic for diabetes @ 6.5% * Will hold off on basal insulin as AM fasting BSG is in goal range this morning @ 102 mg/dl * CHO coverage may not be needed, will initiate if BSG >180, will continue with CF only at this time PLAN FOR INPATIENT GLYCEMIC CONTROL: * Basal insulin * N/A * Bolus insulin * NovoLog per scale ACHS or Q6hrs while NPO * Goal Range: Low 120 mg/dL - High 140 mg/dL * Correction Factor: 35 mg/dL/unit * Nutritional / Prandial insulin per carb ratio of 1 unit per -- grams CHO consumed. Add CR of ~ 15 if BSG > 180 Looking ahead to discharge: * A1c = 6.5 % on 09/08/18 * Pt specific goal A1c is ~ 7% * A1c goal should be individualized based on risk of hypo/drug AE, disease duration, life expectancy, relevant co-morbidities, established vascular complication, patient attitude and expected treatment efforts, resources and support system. * Consider initiating metformin at discharge: * Metformin, if not contraindicated and if tolerated, is the preferred initial pharmacological agent for type 2 diabetes. Metformin has a long- standing evidence base for efficacy and safety, is inexpensive, and may reduce risk of cardiovascular events. * B12 supplementation may be necessary with joint terminal attack controller metformin use * Metformin XR 500mg PO daily with evening meal. Continue to titrate metformin dosing upwards as recommended. Dosage increases should be made in increments of 500 mg weekly, up to 2,000 mg/day PO, given in divided doses. Doses above 2000 mg/day may be better tolerated if divided and given 3 times per day with meals. Max: 2,550 mg/day PO, in divided doses In addition to pharmacologic agents, implement: * Support Patient Self-Management * Healthy Lifestyle (diet, exercise, and smoking cessation) * Disease self-management (SMBG) * Prevention of complications (BP, Lipid goals, Immunizations) * Consider outpatient Diabetes Self-Management Education & Support * Please note that the plan above was derived based on current level of insulin resistance and hospital stress. These recommendations are appropriate for inpatient admission only. Plan of care upon discharge will need to be reassessed to avoid potential outpatient hypo/hyperglycemia. Thank you.
--- NOTE | 2018-09-08 14:00 | Hospitalist Progress Note ---
Date of Service September 08, 2018 Assessment & Plan (1) Elevated troponin: troponin 0.1 for three sets no true chest pain, EKG normal check echo to look for any changes no further work up, this is just elevated troponin, no signs of ACS continue ASA and plavix. hold on further metoprolol due to HR in 60's (2) Upper abdominal pain: likely 2/[address] scan negative for gallbladder or obstruction. continue supportive therapy with bowel regimen, antiemetics and pain control tylenol no pain today, patient is passing gas, no BM yet at time of my visit (3) UTI (urinary tract infection): Continue IV antibiotics with rocephin. urine culture with gram negative bacilli, follow up final result appetite is already better with antibiotics and fluids no fever, WBC up slightly at 11k? (4) T2DM (type 2 diabetes mellitus): continue Insulin Sliding scale with accucheck monitoring monitor for hypoglycemia (5) HTN (hypertension): elevated this morning, 190 systolic give dose of Norvasc 5mg, monitor for some improvement can resume Lisinopril tomorrow (6) Carotid stenosis, bilateral: continue aspirin and Plavix (7) CVA (cerebral vascular accident): stable on ASA/ plavix (8) Constipation: aggressive bowel regimen with colace, senna, miralax (9) Acute kidney injury: likely due to infection. and dehydration resolved completely with Cr of 1.0, can stop fluids (10) Hypokalemia: mildly low at 3.4 give PO replacement BID, repeat tomorrow Subjective patient sitting up in her chair, feeling much better this morning no further abdominal pain when asked where her chest pain was located she pointed to her epigastric area no nausea today her appetite is getting better, she says that her family was concerned about her not eating for two days she says she just wasn't hungry reviewed chart from admission reviewed lab work, mild leukocytosis at 11k, K slightly low at 3.4 Cr is improved to 1.08, VLAD is resolved urine culture growing gram negative bacilli Review of Systems Review of Systems: All systems reviewed & are unremarkable except as noted in HPI & below Constitutional: + weakness; no fever, no chills, no sweats and no fatigue Respiratory: no cough and no dyspnea Cardiovascular: no chest pain Gastrointestinal: no abdominal pain, no nausea, no vomiting, no constipation and no diarrhea/loose stools Physical Exam Constitutional: WD/WN, vitals as above Eyes: PERRL, conjunctivae normal, anicteric sclerae ENMT: external ear and nose normal, oropharynx normal Neck: trachea midline, no thyromegaly Respiratory: normal respiratory effort, lungs clear to auscultation Cardiovascular: RRR, no murmur, no edema Gastrointestinal (Abdomen): normal bowel sounds, soft, nontender, no hepatosplenomegaly Musculoskeletal: no cyanosis or clubbing, extremities motor strength 5/5 Skin: no rashes, warm and dry (thin skin) Neurologic: patellar DTR's 2+ bilat, sensation intact and PERRL, EOMI, accommodation nl, no face palsy, no dysarthria Psychiatric: A+Ox3, euthymic affect Lymphatic: no cervical or axillary lymphadenopathy Results & Data Vital Signs (Past 12 Hours) Vital Signs Temp Pulse Pulse Resp BP BP Pulse Ox 09/08/18 11:33 36.5 C 67 18 103/67 98 09/08/18 10:19 36.5 C 66 18 162/77 H 190/63 H 97 09/08/18 07:40 36.5 C 66 18 190/63 H 97 09/08/18 07:11 66 09/08/18 06:00 162/77 H 09/08/18 04:01 36.7 C 66 18 171/67 H 187/77 H 96 Laboratory Results Laboratory Results - last 24 hr 09/07/18 09/07/18 09/07/18 16:42 18:24 20:09 WBC RBC Hgb Hct MCV MCH MCHC RDW Std Deviation RDW Coeff of Michaela Plt Count MPV PT 11.6 INR 1.1 APTT 27.5 PTT Ratio 1.0 Sodium Potassium Chloride Carbon Dioxide Anion Gap BUN Creatinine Est Cr Clr Drug Dosing Est GFR ( Amer) Est GFR (Non-Af Amer) BUN/Creatinine Ratio Glucose POC Glucose 123 H 113 H Estimat Average Glucose Hemoglobin A1c Calcium Troponin I 09/07/18 09/08/18 09/08/18 21:48 07:49 07:49 WBC RBC Hgb Hct MCV MCH MCHC RDW Std Deviation RDW Coeff of Michaela Plt Count MPV PT INR APTT PTT Ratio Sodium Potassium Chloride Carbon Dioxide Anion Gap BUN Creatinine Est Cr Clr Drug Dosing Est GFR ( Amer) Est GFR (Non-Af Amer) BUN/Creatinine Ratio Glucose POC Glucose Estimat Average Glucose 140 Hemoglobin A1c 6.5 H Calcium Troponin I 0.169 H* 0.199 H* 09/08/18 09/08/18 09/08/18 07:55 08:02 08:02 WBC 11.95 H RBC 4.09 L Hgb 11.0 L Hct 32.8 L MCV 80.2 MCH 26.9 MCHC 33.5 RDW Std Deviation 44.8 RDW Coeff of Michaela 15.3 H Plt Count 355 MPV 9.7 PT INR APTT PTT Ratio Sodium 135 L Potassium 3.4 L Chloride 99 Carbon Dioxide 27 Anion Gap 9.0 BUN 26 H Creatinine 1.08 Est Cr Clr Drug Dosing 34.1 Est GFR ( Amer) 55.0 Est GFR (Non-Af Amer) 47.4 BUN/Creatinine Ratio 23.9 H Glucose 98 POC Glucose 102 H Estimat Average Glucose Hemoglobin A1c Calcium 9.6 Troponin I 09/08/18 11:43 WBC RBC Hgb Hct MCV MCH MCHC RDW Std Deviation RDW Coeff of Michaela Plt Count MPV PT INR APTT PTT Ratio Sodium Potassium Chloride Carbon Dioxide Anion Gap BUN Creatinine Est Cr Clr Drug Dosing Est GFR ( Amer) Est GFR (Non-Af Amer) BUN/Creatinine Ratio Glucose POC Glucose 169 H Estimat Average Glucose Hemoglobin A1c Calcium Troponin I Microbiology 09/07/18 09:50 Urine,Clean Catch Urine Culture - Preliminary Gram negative bacilli Medications Administered Current Inpatient Medications Acetaminophen (Tylenol) 650 mg PO Q4H PRN PRN Reason: pain/fever Stop: 10/07/18 16:00 Al Hydrox/Mg Hydrox/Simethicone (Maalox) 30 ml PO Q6H PRN PRN Reason: Dyspepsia Stop: 10/07/18 16:00 Aspirin (Ecotrin Ectab) 81 mg PO PM [facility] Stop: 10/07/18 20:59 Last Admin: 09/07/18 20:33 Dose: 81 mg Documented by: Clopidogrel Bisulfate (Plavix) 75 mg PO QAM [facility] Stop: 10/08/18 08:59 Last Admin: 09/08/18 08:31 Dose: 75 mg Documented by: Dextrose (Dextrose 50%) 25 - 50 ml IV UD PRN; Protocol PRN Reason: Hypoglycemia Protocol Stop: 10/07/18 16:00 Enoxaparin Sodium (Lovenox) 30 mg SQ Q24H [facility]; Protocol Stop: 10/07/18 20:59 Last Admin: 09/07/18 21:31 Dose: 30 mg Documented by: Glucagon (Glucagen) 1 mg SQ UD PRN; Protocol PRN Reason: Hypoglycemia Protocol Stop: 10/07/18 16:00 Glucose (Glucose 40%) 15 - 30 gm PO UD PRN; Protocol PRN Reason: Hypoglycemia Protocol Stop: 10/07/18 16:00 Glucose (Dex4 Glucose) 4 - 8 tabs PO UD PRN; Protocol PRN Reason: Hypoglycemia Protocol Stop: 10/07/18 16:00 Ceftriaxone Sodium 1,000 mg/ (Dextrose) 50 mls @ 100 mls/hr IV Q24H [facility]; Protocol Stop: 09/12/18 07:59 Last Infusion: 09/08/18 09:20 Dose: Infused Documented by: Insulin Aspart (Novolog Flexpen) 0 units SC ACHS [facility] Stop: 10/07/18 16:29 Last Admin: 09/08/18 12:28 Dose: 1 units Documented by: Levothyroxine Sodium (Levothyroxine Sodium) 137 mcg PO DAILYBB [facility] Stop: 10/08/18 06:29 Last Admin: 09/08/18 05:49 Dose: 137 mcg Documented by: Metoprolol Succinate (Toprol Xl) 50 mg PO QAM [facility] Stop: 10/07/18 16:29 Last Admin: 09/08/18 08:31 Dose: 50 mg Documented by: Miscellaneous (Carbohydrates For Hypoglycemia) 15 - 30 gm PO UD PRN PRN Reason: Hypoglycemia Treatment Stop: 10/07/18 16:00 Miscellaneous Information (Consult Glycemic Management Pharmacy) 1 ea N/A UD PRN; Protocol PRN Reason: Consult Stop: 10/07/18 16:17 Multivitamins (Multivitamin Tab) 1 tab PO PM [facility] Stop: 10/07/18 20:59 Last Admin: 09/07/18 20:34 Dose: 1 tab Documented by: Multivitamins/Minerals (Caltrate Plus) 1 tab PO PM [facility] Stop: 10/07/18 20:59 Last Admin: 09/07/18 20:33 Dose: 1 tab Documented by: Ondansetron HCl (Zofran) 4 mg IV Q6H PRN PRN Reason: Nausea Stop: 10/07/18 16:00 Potassium Chloride (Klor-Con M10) 10 meq PO BID [facility] Stop: 10/08/18 09:59 Last Admin: 09/08/18 10:41 Dose: 10 meq Documented by: PG Care Time/CCT Total # of Minutes Spent Total Time Spent with Patient: Total time spent is greater than 50% in coordin ation of care (as documented) at patient's floor/unit and/or counseling patient: (1) UTI (urinary tract infection) Hematuria presence: without hematuria Urinary tract infection type: site unspecified Qualified Code(s): N39.0 - Urinary tract infection, site not specified (2) CVA (cerebral vascular accident) CVA mechanism: unspecified Qualified Code(s): I63.9 - Cerebral infarction, unspecified
[2018-09-08] MEDS: MULTIVITAMIN TAB PO SCH (20:20)
[2018-09-08] MEDS: CALCIUM 600MG + VIT D 400 IU TAB PO SCH (20:20)
[2018-09-08] MEDS: ENOXAPARIN INJ 30 MG/0.3 ML SYR SQ SCH (20:21)
[2018-09-08] MEDS: ASPIRIN 81 MG ECTAB PO SCH (20:21)
[2018-09-09] MEDS ORDERED: DiphenhydrAMINE HCL 50 MG/ML VIAL IV ONE (02:10)
[2018-09-09] MEDS: LEVOTHYROXINE SODIUM 137 MCG TABLET PO SCH (05:59)
[2018-09-09 06:56] LABS: Basophils # (auto) 0.07 K/uL (0-0.2); Basophils % (auto) 0.8 %; Eosinophils # (auto) 0.29 K/uL (0-0.5); Eosinophils % (auto) 3.3 %; Hematocrit (blood only) 35.8 % (37-47); Hemoglobin 12.1 g/dL (12.0-16.0); Immature Granulocytes # (auto) 0.07 K/uL (0.00-0.02); Immature Granulocytes % (auto) 0.8 %; Lymphocytes # (auto) 1.97 K/uL (1.2-3.4); Lymphocytes % (auto) 22.4 %; Mean Corpuscular Hgb Conc 33.8 g/dL (32-36); Mean Corpuscular Volume 80.3 fL (80-100); Mean Platelet Volume 9.7 fL (7.4-10.4); Monocytes # (auto) 0.73 K/uL (0.11-0.59); Monocytes % (auto) 8.3 %; Neutrophils # (auto) 5.66 K/uL (1.4-6.5); Neutrophils % (auto) 64.4 %; Platelet Count 372 K/uL (130-400); RDW Coefficient of Variation 15.5 % (11.5-14.5); RDW Standard Deviation 45.3 fL (36.4-46.3); Red Blood Count 4.46 M/uL (4.2-5.4); White Blood Count 8.79 K/uL (4.8-10.8)
[2018-09-09 07:27] LABS: BUN Creatinine Ratio 26.3 (10-20); Calcium 9.1 mg/dl (8.5-10.1); Creatinine Clr Calc Pharmacy 25.9 ml/min; Est GFR (African American) 39.5; Est GFR (Non-African American) 34.1; Potassium 3.6 mmol/L (3.5-5.1)
[2018-09-09] MEDS: INSULIN ASPART 100 UNITS/ML 3 ML PEN SC SCH ×4 (08:22→22:28)
[2018-09-09] MEDS: AMLODIPINE BESYLATE 5 MG TAB PO SCH (08:23)
[2018-09-09] MEDS: POTASSIUM CHLORIDE 10 MEQ TABCR PO SCH ×2 (08:23→21:03)
[2018-09-09] MEDS: LISINOPRIL 20 MG TAB PO SCH (08:23)
[2018-09-09] MEDS: CLOPIDOGREL BISULFATE 75 MG TAB PO SCH (08:23)
[2018-09-09] MEDS: cefTRIAXone SODIUM 1,000 MG in DEXTROSE 5% 50 ML IV SCH (08:25)
--- NOTE | 2018-09-09 10:47 | Pharmacy Report ---
Pharmacy Glycemic Sign Off Nt - Date of Service September 09, 2018 - Assessment & Plan ASSESSMENT: * Pharmacy was consulted by Dr Frost on 09/07/18 for glycemic control and to write orders per [facility] inpatient glycemic control protocol. * Major changes made by pharmacy to antidiabetic regimen include: * Adding NovoLog correctional scale only (no CHO coverage) * Patient has been receiving/requiring 0-1 units of insulin per day for adequate glycemic control * BSGs ranging 93-169 mg/dl * Regimen has only required minor adjustments over the past 48hrs to achieve this level of control * Do not anticipate further changes in patient status that would quickly deteriorate glycemic control (i.e. patient to be NPO for upcoming procedure, steroids tapering, starting tube feedings, etc). PLAN FOR INPATIENT GLYCEMIC CONTROL: No changes needed to current regimen. * No basal insulin needed * Continue NovoLog per scale ACHS/Q6hrs while NPO * Goal range = 120 - 140 mg/dl * CF = 35 mg/dl/unit * CR = 1 unit for ever -- g CHO consumed (none) * Pharmacy is signing off of glycemic consult and will no longer be making adjustments to inpatient regimen. Please feel free to re-consult if needed. Thank you.
--- NOTE | 2018-09-09 16:42 | Hospitalist Progress Note ---
Date of Service September 09, 2018 Assessment & Plan (1) Elevated troponin: troponin 0.1 for three sets no true chest pain, EKG normal echo with preserved EF, no wall motion abnormalities no further work up, this is just elevated troponin, no signs of ACS continue ASA and plavix. hold on further metoprolol due to HR in 60's (2) Upper abdominal pain: likely 2/[address] scan negative for gallbladder or obstruction. continue supportive therapy with bowel regimen, antiemetics and pain control tylenol no pain today, moving bowels (3) UTI (urinary tract infection): Continue IV antibiotics with rocephin. urine culture with E coli, tovar sensitive appetite is already better with antibiotics and fluids no fever, WBC down to 8k change to Keflex tomorrow (4) T2DM (type 2 diabetes mellitus): continue Insulin Sliding scale with accucheck monitoring monitor for hypoglycemia, no episodes (5) HTN (hypertension): elevated this yesterday at 190 systolic improved today to normal levels with Lisinopril 20mg daily and Norvasc 5mg (6) Carotid stenosis, bilateral: continue aspirin and Plavix (7) CVA (cerebral vascular accident): stable on ASA/ plavix (8) Constipation: aggressive bowel regimen with colace, senna, miralax (9) Acute kidney injury: likely due to infection. and dehydration resolved to 1.0 yesterday, Cr up slightly to 1.4 today likely in her normal range as she is hydrated (10) Hypokalemia: resolved at 3.6 continue PO replacement BID Subjective patient feeling well no new symptoms over night, eating well no fever or chills urine culture growing E coli, pansensitive labs show Cr up slightly to 1.4, otherwise normal discussed rehab with she and her son, they are agreeable awaiting insurance determination for [facility] as they have a bed and will accept Review of Systems Review of Systems: All systems reviewed & are unremarkable except as noted in HPI & below Physical Exam Constitutional: WD/WN, vitals as above Eyes: PERRL, conjunctivae normal, anicteric sclerae ENMT: external ear and nose normal, oropharynx normal Neck: trachea midline, no thyromegaly Respiratory: normal respiratory effort, lungs clear to auscultation Cardiovascular: RRR, no murmur, no edema Gastrointestinal (Abdomen): normal bowel sounds, soft, nontender, no hepatosplenomegaly Musculoskeletal: no cyanosis or clubbing, extremities motor strength 5/5 Skin: no rashes, warm and dry (thin skin) Neurologic: patellar DTR's 2+ bilat, sensation intact and PERRL, EOMI, accommodation nl, no face palsy, no dysarthria Psychiatric: A+Ox3, euthymic affect Lymphatic: no cervical or axillary lymphadenopathy Results & Data Vital Signs (Past 12 Hours) Vital Signs Temp Pulse Resp BP BP Pulse Ox 09/09/18 15:17 36.7 C 68 18 113/51 L 97 09/09/18 15:05 36.5 C 69 20 115/60 97 09/09/18 12: 36.4 C L 72 18 112/59 L 96 09/09/18 09:01 76 139/68 09/09/18 07:34 36.5 C 69 18 184/81 H 92 Laboratory Results Laboratory Results - last 24 hr 09/08/18 09/08/18 09/09/18 16:49 20:44 06:32 WBC RBC Hgb Hct MCV MCH MCHC RDW Std Deviation RDW Coeff of Michaela Plt Count MPV Immature Gran % (Auto) Neut % (Auto) Lymph % (Auto) [place] % (Auto) Eos % (Auto) Baso % (Auto) Immature Gran # (Auto) Neut # (Auto) Lymph # (Auto) [place] # (Auto) Eos # (Auto) Baso # (Auto) Sodium 135 L Potassium 3.6 Chloride 100 Carbon Dioxide 28 Anion Gap 7.0 BUN 37 H Creatinine 1.42 H D Est Cr Clr Drug Dosing 25.9 Est GFR ( Amer) 39.5 Est GFR (Non-Af Amer) 34.1 BUN/Creatinine Ratio 26.3 H Glucose 110 H POC Glucose 93 121 H Calcium 9.1 09/09/18 09/09/18 09/09/18 06:32 07:34 11:46 WBC 8.79 RBC 4.46 Hgb 12.1 Hct 35.8 L MCV 80.3 MCH 27.1 MCHC 33.8 RDW Std Deviation 45.3 RDW Coeff of Michaela 15.5 H Plt Count 372 MPV 9.7 Immature Gran % (Auto) 0.8 Neut % (Auto) 64.4 Lymph % (Auto) 22.4 [place] % (Auto) 8.3 Eos % (Auto) 3.3 Baso % (Auto) 0.8 Immature Gran # (Auto) 0.07 H Neut # (Auto) 5.66 Lymph # (Auto) 1.97 [place] # (Auto) 0.73 H Eos # (Auto) 0.29 Baso # (Auto) 0.07 Sodium Potassium Chloride Carbon Dioxide Anion Gap BUN Creatinine Est Cr Clr Drug Dosing Est GFR ( Amer) Est GFR (Non-Af Amer) BUN/Creatinine Ratio Glucose POC Glucose 126 H 129 H Calcium Medications Administered Current Inpatient Medications Acetaminophen (Tylenol) 650 mg PO Q4H PRN PRN Reason: pain/fever Stop: 10/07/18 16:00 Al Hydrox/Mg Hydrox/Simethicone (Maalox) 30 ml PO Q6H PRN PRN Reason: Dyspepsia Stop: 10/07/18 16:00 Amlodipine Besylate ([facility]vasc) [facility] [place] Stop: 10/09/18 08:59 Last Admin: 09/09/18 08:23 Dose: 5 mg Documented by: Aspirin (Ecotrin Ectab) 81 mg PO PM [facility] Stop: 10/07/18 20:59 Last Admin: 09/08/18 20:21 Dose: 81 mg Documented by: Clopidogrel Bisulfate (Plavix) 75 mg PO QAM [facility] Stop: 10/08/18 08:59 Last Admin: 09/09/18 08:23 Dose: 75 mg Documented by: Dextrose (Dextrose 50%) 25 - 50 ml IV UD PRN; Protocol PRN Reason: Hypoglycemia Protocol Stop: 10/07/18 16:00 Enoxaparin Sodium (Lovenox) 30 mg SQ Q24H [facility]; Protocol Stop: 10/07/18 20:59 Last Admin: 09/08/18 20:21 Dose: 30 mg Documented by: Glucagon (Glucagen) 1 mg SQ UD PRN; Protocol PRN Reason: Hypoglycemia Protocol Stop: 10/07/18 16:00 Glucose (Glucose 40%) 15 - 30 gm PO UD PRN; Protocol PRN Reason: Hypoglycemia Protocol Stop: 10/07/18 16:00 Glucose (Dex4 Glucose) 4 - 8 tabs PO UD PRN; Protocol PRN Reason: Hypoglycemia Protocol Stop: 10/07/18 16:00 Ceftriaxone Sodium 1,000 mg/ (Dextrose) 50 mls @ 100 mls/hr IV Q24H [facility]; Protocol Stop: 09/12/18 07:59 Last Infusion: 09/09/18 09:00 Dose: Infused Documented by: Insulin Aspart (Novolog Flexpen) 0 units SC ACHS [facility] Stop: 10/07/18 16:29 Last Admin: 09/09/18 12:19 Dose: Not Given Documented by: Levothyroxine Sodium (Levothyroxine Sodium) 137 mcg PO DAILYBB [facility] Stop: 10/08/18 06:29 Last Admin: 09/09/18 05:59 Dose: 137 mcg Documented by: Lisinopril (Zestril) 20 mg PO QAM [facility] Stop: 10/09/18 08:59 Last Admin: 09/09/18 08:23 Dose: 20 mg Documented by: Miscellaneous (Carbohydrates For Hypoglycemia) 15 - 30 gm PO UD PRN PRN Reason: Hypoglycemia Treatment Stop: 10/07/18 16:00 Multivitamins (Multivitamin Tab) 1 tab PO PM [facility] Stop: 10/07/18 20:59 Last Admin: 09/08/18 20:20 Dose: 1 tab Documented by: Multivitamins/Minerals (Caltrate Plus) 1 tab PO PM [facility] Stop: 10/07/18 20:59 Last Admin: 09/08/18 20:20 Dose: 1 tab Documented by: Ondansetron HCl (Zofran) 4 mg IV Q6H PRN PRN Reason: Nausea Stop: 10/07/18 16:00 Potassium Chloride (Klor-Con M10) 10 meq PO BID [facility] Stop: 10/08/18 09:59 Last Admin: 09/09/18 08:23 Dose: 10 meq Documented by: PG Care Time/CCT Total # of Minutes Spent Total Time Spent with Patient: Total time spent is greater than 50% in coordinat ion of care (as documented) at patient's floor/unit and/or counseling patient: (1) UTI (urinary tract infection) Hematuria presence: without hematuria Urinary tract infection type: site unspecified Qualified Code(s): N39.0 - Urinary tract infection, site not specified (2) CVA (cerebral vascular accident) CVA mechanism: unspecified Qualified Code(s): I63.9 - Cerebral infarction, unspecified
[2018-09-09] MEDS: ENOXAPARIN INJ 30 MG/0.3 ML SYR SQ SCH (21:03)
[2018-09-09] MEDS: MULTIVITAMIN TAB PO SCH (21:03)
[2018-09-09] MEDS: CALCIUM 600MG + VIT D 400 IU TAB PO SCH (21:03)
[2018-09-09] MEDS: ASPIRIN 81 MG ECTAB PO SCH (21:03)
[2018-09-10] MEDS: LEVOTHYROXINE SODIUM 137 MCG TABLET PO SCH (05:24)
[2018-09-10 07:51] LABS: Basophils # (auto) 0.05 K/uL (0-0.2); Basophils % (auto) 0.7 %; Eosinophils # (auto) 0.21 K/uL (0-0.5); Eosinophils % (auto) 2.8 %; Hematocrit (blood only) 34.5 % (37-47); Hemoglobin 11.3 g/dL (12.0-16.0); Immature Granulocytes # (auto) 0.05 K/uL (0.00-0.02); Immature Granulocytes % (auto) 0.7 %; Lymphocytes # (auto) 2.16 K/uL (1.2-3.4); Mean Corpuscular Hgb Conc 32.8 g/dL (32-36); Mean Platelet Volume 9.5 fL (7.4-10.4); Monocytes # (auto) 0.66 K/uL (0.11-0.59); Monocytes % (auto) 8.9 %; Neutrophils # (auto) 4.32 K/uL (1.4-6.5); Neutrophils % (auto) 57.9 %; Platelet Count 323 K/uL (130-400); RDW Coefficient of Variation 15.6 % (11.5-14.5); RDW Standard Deviation 45.6 fL (36.4-46.3); Red Blood Count 4.26 M/uL (4.2-5.4); White Blood Count 7.45 K/uL (4.8-10.8)
[2018-09-10] MEDS: INSULIN ASPART 100 UNITS/ML 3 ML PEN SC SCH ×4 (08:13→20:55)
[2018-09-10] MEDS: POTASSIUM CHLORIDE 10 MEQ TABCR PO SCH ×2 (08:16→20:24)
[2018-09-10] MEDS: cephALEXin 500 MG CAP PO SCH ×2 (08:16→20:25)
[2018-09-10] MEDS: LISINOPRIL 20 MG TAB PO SCH (08:16)
[2018-09-10] MEDS: CLOPIDOGREL BISULFATE 75 MG TAB PO SCH (08:16)
[2018-09-10] MEDS: AMLODIPINE BESYLATE 5 MG TAB PO SCH (08:16)
[2018-09-10 08:19] LABS: BUN Creatinine Ratio 31.3 (10-20); Calcium 9.3 mg/dl (8.5-10.1); Creatinine Clr Calc Pharmacy 35.4 ml/min; Est GFR (African American) 57.5; Est GFR (Non-African American) 49.6
[2018-09-10] MEDS: ASPIRIN 81 MG ECTAB PO SCH (20:25)
[2018-09-10] MEDS: ENOXAPARIN INJ 30 MG/0.3 ML SYR SQ SCH (20:25)
[2018-09-10] MEDS: MULTIVITAMIN TAB PO SCH (20:26)
[2018-09-10] MEDS: CALCIUM 600MG + VIT D 400 IU TAB PO SCH (20:26)
--- NOTE | 2018-09-10 20:53 | Hospitalist Progress Note ---
Date of Service September 10, 2018 Assessment & Plan (1) Elevated troponin: troponin 0.1 for three sets no true chest pain, EKG normal echo with preserved EF, no wall motion abnormalities no further work up, this is just elevated troponin, no signs of ACS continue ASA and plavix. (2) Upper abdominal pain: likely 2/[address] scan negative for gallbladder or obstruction. continue supportive therapy with bowel regimen, antiemetics and pain control tylenol no pain today, moving bowels (3) UTI (urinary tract infection): Continue IV antibiotics with rocephin. urine culture with E coli, tovar sensitive appetite is already better with antibiotics and fluids no fever, WBC down to 8k yesterday change to Keflex, complete 10 days (4) T2DM (type 2 diabetes mellitus): continue Insulin Sliding scale with accucheck monitoring monitor for hypoglycemia, no episodes (5) HTN (hypertension): elevated this yesterday at 190 systolic improved with Lisinopril 20mg daily and Norvasc 5mg continue to monitor (6) Carotid stenosis, bilateral: continue aspirin and Plavix (7) CVA (cerebral vascular accident): stable on ASA/ plavix (8) Constipation: aggressive bowel regimen with colace, senna, miralax (9) Acute kidney injury: likely due to infection. and dehydration resolved to 1.0 today (10) Hypokalemia: resolved at 4.0 stop PO replacement BID Subjective patient doing well, resting in her chair today no acute issues over night no fever, vitals stable labs are stable patient agrees with plans for rehab requested peer to peer for [facility], denied, will approve [facility] aware, looking into [facility], now won't be until Wednesday Review of Systems Review of Systems: All systems reviewed & are unremarkable except as noted in HPI & below Neurologic: + unsteadiness Physical Exam Constitutional: WD/WN, vitals as above Eyes: PERRL, conjunctivae normal, anicteric sclerae ENMT: external ear and nose normal, oropharynx normal Neck: trachea midline, no thyromegaly Respiratory: normal respiratory effort, lungs clear to auscultation Cardiovascular: RRR, no murmur, no edema Gastrointestinal (Abdomen): normal bowel sounds, soft, nontender, no hepatosplenomegaly Musculoskeletal: no cyanosis or clubbing, extremities motor strength 5/5 Skin: no rashes, warm and dry (thin skin) Neurologic: patellar DTR's 2+ bilat, sensation intact and PERRL, EOMI, accommodation nl, no face palsy, no dysarthria Psychiatric: A+Ox3, euthymic affect Lymphatic: no cervical or axillary lymphadenopathy Results & Data Vital Signs (Past 12 Hours) Vital Signs Temp Pulse Pulse Resp BP BP Pulse Ox 09/10/18 19:00 36.4 C L 83 20 104/59 L 99 09/10/18 15:28 36.5 C 73 18 91/62 L 90 09/10/18 15:00 80 09/10/18 10:55 36.5 C 70 16 139/82 98 Laboratory Results Laboratory Results - last 24 hr 09/10/18 09/10/18 09/10/18 07:35 07:38 07:38 WBC 7.45 RBC 4.26 Hgb 11.3 L Hct 34.5 L MCV 81.0 MCH 26.5 MCHC 32.8 RDW Std Deviation 45.6 RDW Coeff of Michaela 15.6 H Plt Count 323 MPV 9.5 Immature Gran % (Auto) 0.7 Neut % (Auto) 57.9 Lymph % (Auto) 29.0 Moffat % (Auto) 8.9 Eos % (Auto) 2.8 Baso % (Auto) 0.7 Immature Gran # (Auto) 0.05 H Neut # (Auto) 4.32 Lymph # (Auto) 2.16 Moffat # (Auto) 0.66 H Eos # (Auto) 0.21 Baso # (Auto) 0.05 Sodium 137 Potassium 4.0 Chloride 103 Carbon Dioxide 28 Anion Gap 6.0 BUN 33 H Creatinine 1.04 Est Cr Clr Drug Dosing 35.4 Est GFR ( Amer) 57.5 Est GFR (Non-Af Amer) 49.6 BUN/Creatinine Ratio 31.3 H Glucose 115 H POC Glucose 131 H Calcium 9.3 09/10/18 09/10/18 09/10/18 11:11 16:51 20:19 WBC RBC Hgb Hct MCV MCH MCHC RDW Std Deviation RDW Coeff of Michaela Plt Count MPV Immature Gran % (Auto) Neut % (Auto) Lymph % (Auto) Moffat % (Auto) Eos % (Auto) Baso % (Auto) Immature Gran # (Auto) Neut # (Auto) Lymph # (Auto) Moffat # (Auto) Eos # (Auto) Baso # (Auto) Sodium Potassium Chloride Carbon Dioxide Anion Gap BUN Creatinine Est Cr Clr Drug Dosing Est GFR ( Amer) Est GFR (Non-Af Amer) BUN/Creatinine Ratio Glucose POC Glucose 111 H 116 H 99 Calcium Medications Administered Current Inpatient Medications Acetaminophen (Tylenol) 650 mg PO Q4H PRN PRN Reason: pain/fever Stop: 10/07/18 16:00 Last Admin: 09/10/18 01:27 Dose: 650 mg Documented by: Al Hydrox/Mg Hydrox/Simethicone (Maalox) 30 ml PO Q6H PRN PRN Reason: Dyspepsia Stop: 10/07/18 16:00 A[facility]) [facility] Stop: 10/09/18 08:59 Last Admin: 09/10/18 08:16 Dose: 5 mg Documented by: Aspirin (Ecotrin Ectab) 81 mg PO PM [facility] Stop: 10/07/18 20:59 Last Admin: 09/10/18 20:25 Dose: 81 mg Documented by: Cephalexin HCl (Keflex) 500 mg PO BID [facility] Stop: 09/15/18 08:59 Last Admin: 09/10/18 20:25 Dose: 500 mg Documented by: Clopidogrel Bisulfate (Plavix) [facility] Stop: 10/08/18 08:59 Last Admin: 09/10/18 08:16 Dose: 75 mg Documented by: Dextrose (Dextrose 50%) 25 - 50 ml IV UD PRN; Protocol PRN Reason: Hypoglycemia Protocol Stop: 10/07/18 16:00 Enoxaparin Sodium (Lovenox) 30 mg SQ Q24H [facility]; Protocol Stop: 10/07/18 20:59 Last Admin: 09/10/18 20:25 Dose: 30 mg Documented by: Glucagon (Glucagen) 1 mg SQ UD PRN; Protocol PRN Reason: Hypoglycemia Protocol Stop: 10/07/18 16:00 Glucose (Glucose 40%) 15 - 30 gm PO UD PRN; Protocol PRN Reason: Hypoglycemia Protocol Stop: 10/07/18 16:00 Glucose (Dex4 Glucose) 4 - 8 tabs PO UD PRN; Protocol PRN Reason: Hypoglycemia Protocol Stop: 10/07/18 16:00 Insulin Aspart (Novolog Flexpen) 0 units SC [facility] Stop: 10/07/18 16:29 Last Admin: 09/10/18 17:18 Dose: Not Given Documented by: Levothyroxine Sodium (Levothyroxine Sodium) 137 mcg PO DAILYBB [facility] Stop: 10/08/18 06:29 Last Admin: 09/10/18 05:24 Dose: 137 mcg Documented by: Lisinopril (Zestril) 20 mg PO QAM [facility] Stop: 10/09/18 08:59 Last Admin: 09/10/18 08:16 Dose: 20 mg Documented by: Miscellaneous (Carbohydrates For Hypoglycemia) 15 - 30 gm PO UD PRN PRN Reason: Hypoglycemia Treatment Stop: 10/07/18 16:00 Multivitamins (Multivitamin Tab) 1 tab PO PM [facility] Stop: 10/07/18 20:59 Last Admin: 09/10/18 20:26 Dose: 1 tab Documented by: Multivitamins/Minerals (Caltrate Plus) 1 tab PO PM [facility] Stop: 10/07/18 20:59 Last Admin: 09/10/18 20:26 Dose: 1 tab Documented by: Ondansetron HCl (Zofran) 4 mg IV Q6H PRN PRN Reason: Nausea Stop: 10/07/18 16:00 Potassium Chloride (Klor-Con M10) 10 meq PO BID [facility] Stop: 10/08/18 09:59 Last Admin: 09/10/18 20:24 Dose: 10 meq Documented by: PG Care Time/CCT Total # of Minutes Spent Total Time Spent with Patient: Total time spent is greater than 50% in coordination of care (as documented) at patient's floor/unit and/or counseling patient: (1) UTI (urinary tract infection) Hematuria presence: without hematuria Urinary tract infection type: site unspecified Qualified Code(s): N39.0 - Urinary tract infection, site not specified (2) CVA (cerebral vascular accident) CVA mechanism: unspecified Qualified Code(s): I63.9 - Cerebral infarction, unspecified
[2018-09-11] MEDS: LEVOTHYROXINE SODIUM 137 MCG TABLET PO SCH (05:05)
[2018-09-11] MEDS: AMLODIPINE BESYLATE 5 MG TAB PO SCH (08:17)
[2018-09-11] MEDS: INSULIN ASPART 100 UNITS/ML 3 ML PEN SC SCH ×4 (08:17→20:26)
[2018-09-11] MEDS: CLOPIDOGREL BISULFATE 75 MG TAB PO SCH (08:17)
[2018-09-11] MEDS: LISINOPRIL 20 MG TAB PO SCH (08:17)
[2018-09-11] MEDS: cephALEXin 500 MG CAP PO SCH ×2 (08:18→20:33)
--- NOTE | 2018-09-11 09:43 | Hospitalist Progress Note ---
Date of Service September 11, 2018 Assessment & Plan (1) Elevated troponin: troponin 0.1 for three sets on day of admission no true chest pain, EKG normal echo with preserved EF, no wall motion abnormalities no further work up, this is just elevated troponin, no signs of ACS continue ASA and plavix. (2) Upper abdominal pain: likely 2/[address] scan negative for gallbladder or obstruction. continue supportive therapy with bowel regimen, antiemetics and pain control tylenol no pain for several days, moving bowels (3) UTI (urinary tract infection): treated initially with Rocephin, changed to Keflex 500mg BID complete a total of 10 days urine culture with E coli, tovar sensitive appetite is already better with antibiotics and fluids no fever, WBC normal (4) T2DM (type 2 diabetes mellitus): continue Insulin Sliding scale with accucheck monitoring monitor for hypoglycemia, no episodes (5) HTN (hypertension): elevated at times, as high as 190 systolic improved with Lisinopril 20mg daily and Norvasc 5mg continue to monitor (6) Carotid stenosis, bilateral: continue aspirin and Plavix (7) CVA (cerebral vascular accident): stable on ASA/ plavix (8) Constipation: aggressive bowel regimen with colace, senna, miralax (9) Acute kidney injury: likely due to infection. and dehydration resolved to 1.0 on 09/09 (10) Hypokalemia: resolved stop PO replacement BID Plan: CM will check on bed availability at [facility] tomorrow, Michelle would be back up medical education specialist at insurance said that SNF would already be approved hopeful that [facility] has bed and she can be d/c tomorrow Subjective patient still doing great, no complaints, no issues eating well discussed with her that insurance won't pay for [facility] option is SNF, she asked that I speak with her daughter spoke with daughter Taylor over the phone, she agreed to [facility], gave Michelle as second option if no beds at [facility] will have CM look into it tomorrow Review of Systems Review of Systems: All systems reviewed & are unremarkable except as noted in HPI & below Physical Exam Constitutional: WD/WN, vitals as above Eyes: PERRL, conjunctivae normal, anicteric sclerae ENMT: external ear and nose normal, oropharynx normal Neck: trachea midline, no thyromegaly Respiratory: normal respiratory effort, lungs clear to auscultation Cardiovascular: RRR, no murmur, no edema Gastrointestinal (Abdomen): normal bowel sounds, soft, nontender, no hepatosplenomegaly Musculoskeletal: no cyanosis or clubbing, extremities motor strength 5/5 Skin: no rashes, warm and dry (thin skin) Neurologic: patellar DTR's 2+ bilat, sensation intact and PERRL, EOMI, accommodation nl, no face palsy, no dysarthria Psychiatric: A+Ox3, euthymic affect Lymphatic: no cervical or axillary lymphadenopathy Results & Data Vital Signs (Past 12 Hours) Vital Signs Temp Pulse Pulse Resp BP BP Pulse Ox 09/11/18 07:47 73 09/11/18 07:19 36.5 C 77 16 134/81 99 09/11/18 04:00 36.3 C L 77 18 178/88 H 97 09/11/18 00:00 69 09/10/18 23:00 36.5 C 72 20 113/57 L 96 Laboratory Results Laboratory Results - last 24 hr 09/10/18 09/10/18 09/10/18 11:11 16:51 20:19 POC Glucose 111 H 116 H 99 09/11/18 07:38 POC Glucose 173 H Medications Administered Current Inpatient Medications Acetaminophen (Tylenol) 650 mg PO Q4H PRN PRN Reason: pain/fever Stop: 10/07/18 16:00 Last Admin: 09/10/18 01:27 Dose: 650 mg Documented by: Al Hydrox/Mg Hydrox/Simethicone (Maalox) 30 ml PO Q6H PRN PRN Reason: Dyspepsia Stop: 10/07/18 16:00 Amlodipine Bes[facility] ([facility]) [facility] [place] Stop: 10/09/18 08:59 Last Admin: 09/11/18 08:17 Dose: 5 mg Documented by: Aspirin (Ecotrin Ectab) 81 mg PO PM [facility] Stop: 10/07/18 20:59 Last Admin: 09/10/18 20:25 Dose: 81 mg Documented by: Cephalexin HCl (Keflex) 500 mg PO BID [facility] Stop: 09/15/18 08:59 Last Admin: 09/11/18 08:18 Dose: 500 mg Documented by: Clopidogrel Bisulfate (Plavix) 75 mg PO QAM [facility] Stop: 10/08/18 08:59 Last Admin: 09/11/18 08:17 Dose: 75 mg Documented by: Dextrose (Dextrose 50%) 25 - 50 ml IV UD PRN; Protocol PRN Reason: Hypoglycemia Protocol Stop: 10/07/18 16:00 Enoxaparin Sodium (Lovenox) 30 mg SQ Q24H [facility]; Protocol Stop: 10/07/18 20:59 Last Admin: 09/10/18 20:25 Dose: 30 mg Documented by: Glucagon (Glucagen) 1 mg SQ UD PRN; Protocol PRN Reason: Hypoglycemia Protocol Stop: 10/07/18 16:00 Glucose (Glucose 40%) 15 - 30 gm PO UD PRN; Protocol PRN Reason: Hypoglycemia Protocol Stop: 10/07/18 16:00 Glucose (Dex4 Glucose) 4 - 8 tabs PO UD PRN; Protocol PRN Reason: Hypoglycemia Protocol Stop: 10/07/18 16:00 Insulin Aspart (Novolog Flexpen) 0 units SC A[facility]S [facility] Stop: 10/07/18 16:29 Last Admin: 09/11/18 08:17 Dose: 1 units Documented by: Levothyroxine Sodium (Levothyroxine Sodium) 137 mcg PO DAILYBB [facility] Stop: 10/08/18 06:29 Last Admin: 09/11/18 05:05 Dose: 137 mcg Documented by: Lisinopril (Zestril) 20 mg PO QAM [facility] Stop: 10/09/18 08:59 Last Admin: 09/11/18 08:17 Dose: 20 mg Documented by: Miscellaneous (Carbohydrates For Hypoglycemia) 15 - 30 gm PO UD PRN PRN Reason: Hypoglycemia Treatment Stop: 10/07/18 16:00 Multivitamins (Multivitamin Tab) 1 tab PO PM [facility] Stop: 10/07/18 20:59 Last Admin: 09/10/18 20:26 Dose: 1 tab Documented by: Multivitamins/Minerals (Caltrate Plus) 1 tab PO PM [facility] Stop: 10/07/18 20:59 Last Admin: 09/10/18 20:26 Dose: 1 tab Documented by: Ondansetron HCl (Zofran) 4 mg IV Q6H PRN PRN Reason: Nausea Stop: 10/07/18 16:00 PG Care Time/CCT Total # of Minutes Spent Total Time Spent with Patient: Total time spent is greater than 50% in coordination of care (as documented) at patient's floor/unit and/or counseling patient: (1) UTI (urinary tract infection) Hematuria presence: without hematuria Urinary tract infection type: site unspecified Qualified Code(s): N39.0 - Urinary tract infection, site not specified (2) CVA (cerebral vascular accident) CVA mechanism: unspecified Qualified Code(s): I63.9 - Cerebral infarction, unspecified
[2018-09-11] MEDS: ASPIRIN 81 MG ECTAB PO SCH (20:32)
[2018-09-11] MEDS: ENOXAPARIN INJ 30 MG/0.3 ML SYR SQ SCH (20:32)
[2018-09-11] MEDS: CALCIUM 600MG + VIT D 400 IU TAB PO SCH (20:32)
[2018-09-11] MEDS: MULTIVITAMIN TAB PO SCH (20:33)
[2018-09-12] MEDS: LEVOTHYROXINE SODIUM 137 MCG TABLET PO SCH (06:28)
[2018-09-12 08:09] LABS: Creatinine Clr Calc Pharmacy 34.2 ml/min; Est GFR (African American) 48.9; Est GFR (Non-African American) 42.2
[2018-09-12] MEDS: INSULIN ASPART 100 UNITS/ML 3 ML PEN SC SCH ×2 (08:37→13:26)
[2018-09-12] MEDS: CLOPIDOGREL BISULFATE 75 MG TAB PO SCH (08:38)
[2018-09-12] MEDS: cephALEXin 500 MG CAP PO SCH (08:38)
[2018-09-12] MEDS: AMLODIPINE BESYLATE 5 MG TAB PO SCH (08:38)
[2018-09-12] MEDS: LISINOPRIL 20 MG TAB PO SCH (10:42)
--- NOTE | 2018-09-12 12:58 | Discharge Summary ---
Date of Service September 12, 2018 Admission HPI Per Admitting Provider 82y/o F PmHx CAD, DMII, CVA, HTN, Carotid stenosis, Who presented to the ED with complaint of fever, generalized weakness, Poor appetite and chest pain over several days. Patient herself does not have any complaints at this time. Her son states that she had poor appetite and complained of lower chest pain and right upper abdominal pain. Subjective fever at home. Here in ED, tempt was normal. Labs showed troponin of 0.129 EKG showed nonspecific T wave changes, no ST abnormalities. Urinalysis showed many WBC, positive nitrite / LE She was given 1 dose of rocephin IV. Principal Diagnosis UTI, Constipation Discharge Exam Constitutional WD/WN, vitals as above Eyes PERRL, conjunctivae normal, anicteric sclerae ENMT external ear and nose normal, oropharynx normal Neck trachea midline, no thyromegaly Respiratory normal respiratory effort, lungs clear to auscultation Cardiovascular RRR, no murmur, no edema Gastrointestinal (Abdomen) normal bowel sounds, soft, nontender, no hepatosplenomegaly Musculoskeletal Extremities: extremities normal to inspection; no cyanosis and no clubbing Skin no rashes, warm and dry Neurologic moves all extremities and awake; no focal motor deficits Psychiatric Orientation: alert, oriented to person, oriented to place and cooperative Discharge Data Allergies Allergy/AdvReac Type Severity Reaction Status Date / Time SULFA Allergy Unknown Unknown Uncoded 09/07/18 10:43 VANTINE Allergy Unknown Unknown Uncoded 09/07/18 10:43 Consultations None Ordered Studies 09/07/18 10:05 US gallbladder Stat 09/07/18 12:05 CT abd pelvis wo con Stat Chest/abdomen xray Hospital Course (1) Elevated troponin: troponin 0.1 for three sets on day of admission no true chest pain, EKG normal echo with preserved EF, no wall motion abnormalities no further work up, this is just elevated troponin, no signs of ACS continue ASA and plavix as before (2) Upper abdominal pain: likely 2/2 constipation -now resolved Ct scan negative for gallbladder or obstruction. continue supportive therapy with bowel regimen no pain for several days, moving bowels regularly (3) UTI (urinary tract infection): treated initially with Rocephin, changed to Keflex 500mg BID complete a total of 10 days-needs 7 more days urine culture with E coli, tovar sensitive appetite is already better with antibiotics and fluids no fever, WBC normal (4) T2DM (type 2 diabetes mellitus): received Insulin Sliding scale with accucheck monitoring while here on no meds at home (5) HTN (hypertension): elevated at times, as high as 190 systolic improved with Lisinopril 20mg daily and added Norvasc 5mg continue to monitor at home (6) Carotid stenosis, bilateral: continue aspirin and Plavix -is not on a statin but is on flaxseed oil (7) CVA (cerebral vascular accident): stable on ASA/ plavix -not on a statin-could add this on-defer to PCP (8) Constipation: aggressive bowel regimen with colace, senna, miralax provided and now resolved (9) Acute kidney injury: likely due to infection. and dehydration resolved to 1.0 on 09/09 (10) Hypokalemia: resolved after repalcement Plan: improved, is walking 240 feet with rolling walker and does not qualify for SNF, stable to return home with Home Health today Care discussed with pt and her daughter Taylor on the phone Total Time Total Time Spent Total Time Spent (In Minutes): >30 min Total Time Includes: Examination of the Patient, Discharge Planning and Medication Reconciliation Discharge Plan Discharge Items Patient Disposition: Home - Home Health Services Reason For Visit: FEVER,WEAKNESS,CHEST PAIN Discharge Diagnosis: UTI, Chest and abdominal pain, Constipation Condition: Good Discharge Goals: Decrease discomfort, Diagnostic testing and Improve disease control Activity: As commented below Lifting: Gradually increase as tolerated Bathing: No limitations Exercise/Sports: Gradually increase as tolerated Non-emergency contact: Primary Care Provider Call non-emergency contact if: you have any medication questions, your symptoms worsen, your pain is not controlled, your pain is worsening, your pain is unusual for you, your pain is concerning for you, you have a fever and your temperature is above 101 Follow-up/Referrals: Jaguar Kelly [Primary Care Provider] - 09/15/18 12:50 pm (Please, follow up at Dr. Kelly's office with his associate, Dr. Márquez, on September 15 at 12:50 pm. *If you need to change this appointment, call their office at [phone].) Diet: Regular Addtl Provider Instructions: You were admitted with complaints of a fever, weakness, and abdominal and chest pain. You were found to have a UTI and treated with antibiotics. You were also found to have constipation which improved and therefore resolved your abdominal pain. Please finish out the course of antibiotics as prescribed. Your blood pressure was quite elevated and you were started on a new pill called amlodipine which really helped better control your blood pressure. Please continue this once daily. Please keep your follow up appointment with Dr. Kelly as scheduled for you. Prescriptions: New amlodipine [Norvasc] 5 mg Tablet 5 mg PO QAM Qty: 30 RF: 0 cephalexin 500 mg Capsule 500 mg PO BID Qty: 14 RF: 0 Continued aspirin [Aspir-81] 81 mg Tablet,Delayed Release (Dr/Ec) 81 mg PO PM RF: 0 Calcium 600 + D(3) 600 mg calcium- 200 unit Capsule 1 tab PO PM RF: 0 multivitamin [Multiple Vitamins] Tablet 1 tab PO PM RF: 0 [id number] [Osteo Bi-Flex (5-Loxin)] 1,500-400-100 mg-unit- mg Tablet 2 tab PO PM Qty: 0 RF: 0 clopidogrel 75 mg Tablet 75 mg PO QAM Qty: 30 RF: 3 levothyroxine 137 mcg tablet 137 mcg PO QAM RF: 0 flaxseed oil 1,000 mg Capsule 1,000 mg PO Q OTHER DAY RF: 0 lisinopril 20 mg tablet 20 mg PO QAM MDD qam RF: 0 Stand-Alone Forms: My [facility]/Other Patient Handouts: Hyperglycemia, Hypoglycemia, Diabetes Type 2 Coping Discharge Orders: Discharge Order (Routine); Ordered 09/12/18 Ordered By: Sherri Real Admission Data Admit Date/Time: 09/07/18 15:12 Attending Provider: Sherri Real Admit Provider: Yareli Frost Primary Care Provider: Jaguar Kelly Other Providers: Yareli Frost Service: Telemetry Medical Other Interventions: Discharge Summary Assessment (RN) Last Done: 09/08/18 10:19 Pending Studies at Discharge: No
== END 2018-09-12 15:06 | disposition home health service (06) | DRG 690 ==
LOC: ED 09:24 → 2N 15:12 → SUATTDRO 15:12 → 2N 15:24

== ENCOUNTER 2019-09-17 21:29 | Observation (INO) ==
[2019-09-17 22:03] LABS: Basophils # (auto) 0.03 K/uL (0-0.2); Basophils % (auto) 0.5 %; Eosinophils # (auto) 0.38 K/uL (0-0.5); Hematocrit (blood only) 35.3 % (37-47); Hemoglobin 11.8 g/dL (12.0-16.0); Immature Granulocytes # (auto) 0.01 K/uL (0.00-0.02); Immature Granulocytes % (auto) 0.2 %; Lymphocytes # (auto) 1.79 K/uL (1.2-3.4); Lymphocytes % (auto) 28.2 %; Mean Corpuscular Hgb Conc 33.4 g/dL (32-36); Mean Corpuscular Volume 83.6 fL (80-100); Mean Platelet Volume 10.4 fL (7.4-10.4); Monocytes # (auto) 0.57 K/uL (0.11-0.59); Neutrophils # (auto) 3.56 K/uL (1.4-6.5); Neutrophils % (auto) 56.1 %; Platelet Count 227 K/uL (130-400); RDW Coefficient of Variation 13.6 % (11.5-14.5); RDW Standard Deviation 41.4 fL (36.4-46.3); Red Blood Count 4.22 M/uL (4.2-5.4); White Blood Count 6.34 K/uL (4.8-10.8)
[2019-09-17] MEDS ORDERED: ASPIRIN CHEW 324 MG PO STA (22:17)
--- NOTE | 2019-09-17 22:22 | Emergency Department Note ---
Impression & Plan Chest pain, HTN (hypertension) ED Provider Note NAME: MONTSE DELGADO AGE: 83 SEX: F : 1935 ARRIVES VIA: Walk-In INFORMANT: Patient ED PROVIDER(S): Shai Salazar DO CHIEF COMPLAINT: chest pain HPI: Patient is an 83-year-old female with a past medical history per previous notes of CAD, diabetes, CVA, hypertension and carotid stenosis who presents the ER for chest pain. Chest pain started around 730 and resolved around 930. She described it as a pressure in the middle of her chest. No radiation to her arms neck or jaw. She does have a history of dementia per the son. He notes he did check her blood pressure at that time and it was elevated. Pain currently is a 0 out of 10. No other exacerbating or remitting factors that she can think of. History is limited secondary to mentation. ROS: See above HPI for pertinent positives & negatives. A total of [10] systems reviewed and were otherwise negative. PAST MEDICAL HISTORY:See Below PAST SURGICAL HISTORY:See Below FAMILY HISTORY:See Below SOCIAL HISTORY:See Below HOME MEDICATIONS:See Below ALLERGIES:See Below VITALS:See Below PHYSICAL EXAMINATION: GENERAL: Sitting up in bed, alert, well appearing, well nourished, no distress, non-toxic EYE EXAM: normal conjunctiva. OROPHARYNX: no exudate, no erythema, lips, buccal mucosa, and tongue normal and mucous membranes are moist NECK: supple, no nuchal rigidity, no adenopathy, non-tender LUNGS: Clear to auscultation. Normal chest wall mechanics HEART: no murmurs, S1 normal and S2 normal ABDOMEN: abdomen soft, non-tender, normo-active bowel sounds, no masses, no rebound or guarding. SKIN: no rashes and no bruising UPPER EXTREMITIES: upper extremities are grossly normal. LOWER EXTREMITIES: No pitting edema. NEURO EXAM: Alert following commands, cranial nerves II-XII grossly intact, normal speech, no gross weakness of arms, no gross weakness of legs. MEDICAL DECISION MAKING: Patient is a 83-year-old female who presents the ER for chest pain which lasted for about 2 hours prior to arrival. Located mid chest described as a pressure. Upon presentation patient had systolic blood pressure of 200. EKG was obtained and unchanged from previous. IV was established blood work was obtained. Labs show no significant leukocytosis or anemia. INR was unremarkable. BMP along with LFTs and bilirubin was negative. Troponin was detectable at 0.084. Previous troponins were elevated and this appears to be consistent with it. Lipase was negative. Chest x-ray was unremarkable for any focal infiltrate. Mediastinum was fine. Patient was placed on Nitropaste and systolic blood pressures came down from 200 to 160. Patient remained chest pain-free while in the ER. Discussed with hospitalist for further evaluation. She was given aspirin as well upon arrival. Triage Nursing notes reviewed. Prior medical records reviewed Vital Signs: reviewed and remarkable for hypertensive Differential diagnosis: Differential diagnoses includes but is not limited to acute coronary syndrome, myocardial infarction, pericarditis, pulmonary embolus, aortic dissection, pneumonia, pneumothorax, musculoskeletal, shingles, esophageal. ER treatment provided: See below Diagnostics interpreted by me: ECG: Sinus rhythm rate of 60 Left axis No PVCs Septal Q waves Normal QTC Cardiac Monitoring: An order was placed for continuous cardiac monitoring. The m onitor shows a rate of 64 with sinus rhythm. Laboratory studies: As stated above and show below. Imaging studies: Portable AP upright 1 view of the chest shows no focal infiltrate or pneumothorax Consultation(s): Discussed with the hospitalist/Dr. Francisco Javier Guerrero for admission. ED COURSE: Procedures: none Critical Care: None Past Med/Surg History Social History Preferred Language: Uzbek Communication Ability: Effective [employer] Media Program Director Required: No Beliefs That Will Affect Care: None Current Living Situation: Family Current Living Situation Comment: pt lives with son at home Feels Safe at Home: Yes Smoking Status: Never smoker Hx Alcohol Use: No Hx Substance Use: No Allergies Allergies Allergy/AdvReac Type Severity Reaction Status Date / Time SULFA Allergy Unknown Unknown Uncoded 09/17/19 22:38 VANTINE Allergy Unknown Unknown Uncoded 09/17/19 22:38 Home Meds Home Medications Medication Instructions Recorded Confirmed Calcium 600 + D(3) 1 tab PO PM 01/03/18 09/17/19 multivitamin [Multiple Vitamins] 1 tab PO PM 01/03/18 09/17/19 levothyroxine 125 mcg PO DAILY 09/15/18 09/17/19 lisinopril-hydrochlorothiazide 2 tab PO DAILY 09/15/18 09/17/19 atorvastatin [Lipitor] 40 mg PO DAILY 10/24/19 07/19/20 turmeric 400 mg PO DAILY 12/22/18 09/17/19 coenzyme Q10 [CoQ-10] 100 mg PO DAILY 09/17/19 09/17/19 lactobacillus combination no.4 0 mmu cells PO DAILY 09/17/19 09/17/19 [Probiotic] Previous Rx's Medication Instructions Recorded clopidogrel 75 mg PO QAM #30 tab 01/06/18 Results & Data (ED) Vital Signs Vital Signs - 24 hr 09/17/19 21:30 09/17/19 21:32 09/17/19 21:40 Temperature 36.9 C Temperature Source Oral Pulse Rate 63 61 Pulse Rate from SpO2 Sensor Respiratory Rate 20 16 Blood Pressure 194/68 H Blood Pressure Mean 110 Blood Pressure Position Sitting Pulse Oximetry 97 97 Oxygen Delivery Method Room Air Room Air Sepsis Recent Fever Within 48 Hours No Sepsis New/Unexplained Change in Mental Status No Sepsis Action Taken by Nursing No Action Required 09/17/19 21:44 09/17/19 21:47 09/17/19 22:00 Temperature Temperature Source Pulse Rate 62 60 61 Pulse Rate from SpO2 Sensor 62 60 61 Respiratory Rate 14 17 17 Blood Pressure 200/64 H Blood Pressure Mean 91 Blood Pressure Position Pulse Oximetry 98 96 99 Oxygen Delivery Method Sepsis Recent Fever Within 48 Hours Sepsis New/Unexplained Change in Mental Status Sepsis Action Taken by Nursing 09/17/19 22:01 09/17/19 22:30 Temperature Temperature Source Pulse Rate 63 59 L Pulse Rate from SpO2 Sensor 65 59 L Respiratory Rate 18 19 Blood Pressure 177/123 H 165/125 H Blood Pressure Mean 144 140 Blood Pressure Position Pulse Oximetry 99 99 Oxygen Delivery Method Sepsis Recent Fever Within 48 Hours Sepsis New/Unexplained Change in Mental Status Sepsis Action Taken by Nursing Laboratory Data Result diagrams: 09/17/19 21:45 09/17/19 21:45 Lab Results 09/17/19 09/17/19 09/17/19 Range/Units 21:45 21:45 21:45 WBC 6.34 (4.8-10.8) K/uL RBC 4.22 (4.2-5.4) M/uL Hgb 11.8 L (12.0-16.0) g/dL Hct 35.3 L (37-47) % MCV 83.6 (80-100) fL MCH 28.0 (25-34) pg MCHC 33.4 (32-36) g/dL RDW Std Deviation 41.4 (36.4-46.3) fL RDW Coeff of Michaela 13.6 (11.5-14.5) % Plt Count 227 (130-400) K/uL MPV 10.4 (7.4-10.4) fL Immature Gran % (Auto) 0.2 % Neut % (Auto) 56.1 % Lymph % (Auto) 28.2 % [place] % (Auto) 9.0 % Eos % (Auto) 6.0 % Baso % (Auto) 0.5 % Neut # (Auto) 3.56 (1.4-6.5) K/uL Lymph # (Auto) 1.79 (1.2-3.4) K/uL [place] # (Auto) 0.57 (0.11-0.59) K/uL Eos # (Auto) 0.38 (0-0.5) K/uL Baso # (Auto) 0.03 (0-0.2) K/uL Immature Gran # (Auto) 0.01 (0.00-0.02) K/uL PT 11.3 (9.0-12.0) Seconds INR 1.1 (0.9-1.1) APTT 25.2 (21.0-31.0) Seconds PTT Ratio 0.9 Sodium 137 (136-145) mmol/L Potassium 4.1 (3.5-5.1) mmol/L Chloride 105 (98-107) mmol/L Carbon Dioxide 24 (21-32) mmol/L Anion Gap 8.0 (3-11) BUN 34 H (7-18) mg/dl Creatinine 1.22 H (0.6-1.2) mg/dl Est Cr Clr Drug Dosing Not Reportable Est GFR ( Amer) 47.1 Est GFR (Non-Af Amer) 40.6 BUN/Creatinine Ratio 27.7 H (10-20) Glucose 97 (70-99) mg/dl Calcium 9.5 (8.5-10.1) mg/dl Total Bilirubin 0.5 (0.2-1) mg/dl AST 14 L (15-37) U/L ALT 19 (12-78) U/L Alkaline Phosphatase 72 (45-117) U/L Troponin I 0.084 H* (0-0.045) ng/ml Total Protein 7.7 (6.4-8.2) gm/dl Albumin 3.9 (3.4-5.0) gm/dl Globulin 3.8 (2.5-4.0) gm/dl Albumin/Globulin Ratio 1.0 (0.9-2) Lipase 208 (73-393) U/L Administered Medications Nitroglycerin (Nitro-Bid 2%) 1 inch EXT Q6H GRAHAM Stop: 10/17/19 21:59 Last Admin: 09/17/19 22:32 Dose: 1 inch Documented by: [id number] Discontinued Medications Aspirin (Aspirin) 324 mg PO NOW STA Stop: 09/17/19 22:18 Last Admin: 09/17/19 22:32 Dose: 324 mg Documented by: [id number] Discharge Plan Visit Data Chief Complaint: Chest Pain Stated Complaint: CHEST PAIN ED Provider: Shai Salazar Discharge Problem: Chest pain, HTN (hypertension) Forms Stand Alone Forms: [facility] Prescriptions Prescriptions: No Action Calcium 600 + D(3) 600 mg calcium- 200 unit Capsule 1 tab PO PM RF: 0 multivitamin [Multiple Vitamins] Tablet 1 tab PO PM RF: 0 clopidogrel 75 mg Tablet 75 mg PO QAM Qty: 30 RF: 3 atorvastatin [Lipitor] 40 mg tablet 40 mg PO DAILY RF: 0 turmeric 400 mg Capsule 400 mg PO DAILY RF: 0 lisinopril-hydrochlorothiazide 20-12.5 mg Tablet 2 tab PO DAILY RF: 0 levothyroxine 125 mcg Tablet 125 mcg PO DAILY RF: 0 coenzyme Q10 [CoQ-10] 100 mg Capsule 100 mg PO DAILY RF: 0 Probiotic 3 billion cell Capsule 0 mmu cells PO DAILY RF: 0 Discharge Problem: Chest pain Qualifiers: Chest pain type: unspecified Qualified Code(s): R07.9 - Chest pain, unspecified HTN (hypertension) Qualifiers: Hypertension type: unspecified Qualified Code(s): I10 - Essential (primary) hypertension
[2019-09-17 22:25] LABS: Alanine Aminotransferase 19 U/L (12-78); Albumin Level 3.9 gm/dl (3.4-5.0); Aspartate Aminotransferase 14 U/L (15-37); BUN Creatinine Ratio 27.7 (10-20); Blood Urea Nitrogen 34 mg/dl (7-18); Calcium 9.5 mg/dl (8.5-10.1); Carbon Dioxide 24 mmol/L (21-32); Chloride 105 mmol/L (98-107); Est GFR (African American) 47.1; Est GFR (Non-African American) 40.6; Glucose 97 mg/dl (70-99); Lipase 208 U/L (73-393); Potassium 4.1 mmol/L (3.5-5.1); Sodium 137 mmol/L (136-145)
[2019-09-17 22:28] LABS: INR 1.1 (0.9-1.1); Partial Thromboplastin Ratio 0.9; Partial Thromboplastin Time 25.2 Seconds (21.0-31.0); Prothrombin Time 11.3 Seconds (9.0-12.0)
[2019-09-17] MEDS: NITROGLYCERIN 2% OINTMENT 30GM TUBE EXT SCH (22:32)
[2019-09-17 22:40] LABS: Alkaline Phosphatase 72 U/L (45-117); Bilirubin,Total 0.5 mg/dl (0.2-1); Globulin 3.8 gm/dl (2.5-4.0); Total Protein 7.7 gm/dl (6.4-8.2); Troponin I 0.084 ng/ml (0-0.045)
[2019-09-17] MEDS ORDERED: HydrALAZINE HCL 20 MG/ML VIAL IV PRN (23:50)
--- NOTE | 2019-09-17 23:50 | History & Physical Report ---
Date of Service September 17, 2019 Assessment & Plan (1) Chest pain: Chest pain/hypertension- The patient will be admitted to telemetry for serial cardiac enzymes, serial EKG's, cardiac rhythm monitoring and a 2-D echocardiogram with Dopplers. Patient pain resolved after 1 hour spontaneously. EKG with no acute findings She does have chronically elevated troponin. Her troponin upon admission today is 0.084, with most recent 0.064, and range up to 0.199. Continue current dosing of lisinopril/HCTZ, with close attention to GFR and CKD. Hydralazine 10 mg IV every 4 hours PRN systolic blood pressure greater than 160 Consult cardiology Present on Admission?: Yes (2) HTN (hypertension): See above Present on Admission?: Yes (3) T2DM (type 2 diabetes mellitus): Diet-controlled. Check hemoglobin A1c. Glucose upon admission 97 Present on Admission?: Yes (4) Osteoarthritis of right knee: On turmeric 40 mg daily Present on Admission?: Yes (5) Dyslipidemia: Continue atorvastatin 40 mg daily. Check a fasting lipid panel Present on Admission?: Yes (6) Hypothyroidism: Continue levothyroxine sodium 125 mcg daily Present on Admission?: Yes (7) History of CVA with residual deficit: At previous admission was noted to be on aspirin and Plavix. Only Plavix is presently listed on medication list. Needs to be confirmed, as her son is with her, does not usually control her medication administration. Present on Admission?: Yes (8) Chronic kidney disease: Creatinine 1.22 upon admission, with range 0.99-1.19, with peak 1.59 Present on Admission?: Yes (9) Carotid stenosis, bilateral: Follow-up as an outpatient Present on Admission?: Yes History of Present Illness Chief Complaint: The patient presents to the emergency department with a self- limited 1 hour of left parasternal chest discomfort that occurred while she was making her bed earlier this evening Primary Care Provider: Jaguar Kelly The patient is a 83-year-old female with a past medical history including diabetes mellitus type 2, hypertension, bilateral carotid stenosis, hyperlipidemia, hypothyroidism and osteoarthritis. She had a self-limited 1 hour of left parasternal chest discomfort while making her bed earlier this evening. Her family insisted that she come to the emergency department for assessment. She did not have any radiation of discomfort into the neck or shoulder or arm. She did not have any associated lightheadedness or dizziness. She does have chronic right knee pain. Allergies Allergy/AdvReac Type Severity Reaction Status Date / Time SULFA Allergy Unknown Unknown Uncoded 09/17/19 22:38 VANTINE Allergy Unknown Unknown Uncoded 09/17/19 22:38 Home Medications Home Medications Medication Instructions Recorded Confirmed Type Calcium 600 + D(3) 1 tab PO PM 01/03/18 09/17/19 History multivitamin [Multiple Vitamins] 1 tab PO PM 01/03/18 09/17/19 History clopidogrel 75 mg PO QAM #30 tab 01/06/18 09/17/19 Rx levothyroxine 125 mcg PO DAILY 09/15/18 09/17/19 History lisinopril-hydrochlorothiazide 2 tab PO DAILY 09/15/18 09/17/19 History atorvastatin [Lipitor] 40 mg PO DAILY 12/22/18 09/17/19 History turmeric 400 mg PO DAILY 12/22/18 09/17/19 History coenzyme Q10 [CoQ-10] 100 mg PO DAILY 09/17/19 09/17/19 History lactobacillus combination no.4 0 mmu cells PO DAILY 09/17/19 09/17/19 History [Probiotic] Past Med/Surg History Social History Preferred Language: Pashto Communication Ability: Effective Truck Loader Required: No Beliefs That Will Affect Care: None Current Living Situation: Family Current Living Situation Comment: pt lives with son at home Feels Safe at Home: Yes Smoking Status: Never smoker Hx Alcohol Use: No Hx Substance Use: No Review of Systems Review of Systems: The patient denies palpitations, shortness of breath, dyspnea on exertion, cough, lower extremity swelling, sore throat, fevers, chills, sweats, fatigue, nausea, vomiting, diarrhea , constipation, abdominal pain, pelvic pain, blood in urine or stool, dysuria, urinary frequency or urgency, lightheadedness, dizziness, headache, memory loss, loss of consciousness, rash, abnormal bruising or bleeding, imbalance, focal or generalized weakness, numbness or tingling in arms or legs, generalized arthralgias or myalgias, back or neck pain, or night sweats. The review of systems is otherwise negative other than for that already noted above, and at least 10 systems have been reviewed. Physical Exam Physical Exam: The patient is awake, alert and oriented 3, well developed and well nourished, normocephalic and atraumatic, sitting upright in bed and in no acute distress. HEENT--PERRL, EOMI, mucous membranes and oropharynx normal. Neck--supple. No JVD. No bruits. Thyroid normal, trachea midline, no adenopathy. Heart--normal S1 and S2. No murmurs, rubs or gallops. Lungs--clear bilaterally, no respiratory distress, no accessory muscle use. Abdomen--normal bowel sounds and soft. Nontender. Nondistended. Extremities--no cyanosis or clubbing. No edema. There are good distal pulses b/l. Dermatologic--normal skin turgor, normal color, no abnormal lymph nodes, no rash. Neurologic--cranial nerves II through XII grossly intact. Rheumatologic--normal range of motion. Psychiatric--normal affect. Results & Data Results & Data ([facility]) Vital Signs (Past 12 Hours) Vital Signs Temp Pulse Resp BP Pulse Ox 09/17/19 22:30 59 L 19 165/125 H 99 09/17/19 22:01 63 18 177/123 H 99 09/17/19 22:00 61 17 99 09/17/19 21:47 60 17 96 09/17/19 21:44 62 14 200/64 H 98 09/17/19 21:40 61 16 09/17/19 21:32 98.4 F 63 20 194/68 H 97 09/17/19 21:30 97 Laboratory Results Laboratory Results WBC 6.34 K/uL (4.8-10.8) 09/17/19 21:45 RBC 4.22 M/uL (4.2-5.4) 09/17/19 21:45 Hgb 11.8 g/dL (12.0-16.0) L 09/17/19 21:45 Hct 35.3 % (37-47) L 09/17/19 21:45 MCV 83.6 fL (80-100) 09/17/19 21:45 MCH 28.0 pg (25-34) 09/17/19 21:45 MCHC 33.4 g/dL (32-36) 09/17/19 21:45 RDW Std Deviation 41.4 fL (36.4-46.3) 09/17/19 21:45 RDW Coeff of Michaela 13.6 % (11.5-14.5) 09/17/19 21:45 Plt Count 227 K/uL (130-400) 09/17/19 21:45 MPV 10.4 fL (7.4-10.4) 09/17/19 21:45 Immature Gran % (Auto) 0.2 % 09/17/19 21:45 Neut % (Auto) 56.1 % 09/17/19 21:45 Lymph % (Auto) 28.2 % 09/17/19 21:45 [place] % (Auto) 9.0 % 09/17/19 21:45 Eos % (Auto) 6.0 % 09/17/19 21:45 Baso % (Auto) 0.5 % 09/17/19 21:45 Neut # (Auto) 3.56 K/uL (1.4-6.5) 09/17/19 21:45 Lymph # (Auto) 1.79 K/uL (1.2-3.4) 09/17/19 21:45 [place] # (Auto) 0.57 K/uL (0.11-0.59) 09/17/19 21:45 Eos # (Auto) 0.38 K/uL (0-0.5) 09/17/19 21:45 Baso # (Auto) 0.03 K/uL (0-0.2) 09/17/19 21:45 Immature Gran # (Auto) 0.01 K/uL (0.00-0.02) 09/17/19 21:45 PT 11.3 Seconds (9.0-12.0) 09/17/19 21:45 INR 1.1 (0.9-1.1) 09/17/19 21:45 APTT 25.2 Seconds (21.0-31.0) 09/17/19 21:45 PTT Ratio 0.9 09/17/19 21:45 Sodium 137 mmol/L (136-145) 09/17/19 21:45 Potassium 4.1 mmol/L (3.5-5.1) 09/17/19 21:45 Chloride 105 mmol/L (98-107) 09/17/19 21:45 Carbon Dioxide 24 mmol/L (21-32) 09/17/19 21:45 Anion Gap 8.0 (3-11) 09/17/19 21:45 BUN 34 mg/dl (7-18) H 09/17/19 21:45 Creatinine 1.22 mg/dl (0.6-1.2) H 09/17/19 21:45 Est Cr Clr Drug Dosing Not Reportable 09/17/19 21:45 Est GFR ( Amer) 47.1 09/17/19 21:45 Est GFR (Non-Af Amer) 40.6 09/17/19 21:45 BUN/Creatinine Ratio 27.7 (10-20) H 09/17/19 21:45 Glucose 97 mg/dl (70-99) 09/17/19 21:45 Calcium 9.5 mg/dl (8.5-10.1) 09/17/19 21:45 Total Bilirubin 0.5 mg/dl (0.2-1) 09/17/19 21:45 AST 14 U/L (15-37) L 09/17/19 21:45 ALT 19 U/L (12-78) 09/17/19 21:45 Alkaline Phosphatase 72 U/L (45-117) 09/17/19 21:45 Troponin I 0.084 ng/ml (0-0.045) H* 09/17/19 21:45 Total Protein 7.7 gm/dl (6.4-8.2) 09/17/19 21:45 Albumin 3.9 gm/dl (3.4-5.0) 09/17/19 21:45 Globulin 3.8 gm/dl (2.5-4.0) 09/17/19 21:45 Albumin/Globulin Ratio 1.0 (0.9-2) 09/17/19 21:45 Lipase 208 U/L (73-393) 09/17/19 21:45 Code Status & VTE Plan Code Status Full code VTE Prophylaxis Plan VTE Prophylaxis will be ordered: Yes PG Care Time/CCT Total # of Minutes Spent Total Time Spent with Patient: Total time spent is greater than 50% in coordination of care (as documented) at patient's floor/unit and/or counseling patient: Coding Level of Care Code 66599 OBS Care - Level 3 Diagnoses Chest pain R07.9 Chest pain type: unspecified HTN (hypertension) I10 Hypertension type: unspecified T2DM (type 2 diabetes mellitus) E11.9 Osteoarthritis of right knee M17.11 Dyslipidemia E78.5 Hypothyroidism E03.9 History of CVA with residual deficit I69.30 Chronic kidney disease N18.9 Carotid stenosis, bilateral I65.23 (1) Chest pain Chest pain type: unspecified Qualified Code(s): R07.9 - Chest pain, unspecified (2) HTN (hypertension) Hypertension type: unspecified Qualified Code(s): I10 - Essential (primary) hypertension
[2019-09-18] MEDS ORDERED: MAGNESIUM HYDROXIDE SUSP 30 ML UDC PO PRN (00:50)
[2019-09-18] MEDS ORDERED: ONDANSETRON INJ 2 MG/ML 2 ML VIAL IV PRN (00:50)
[2019-09-18] MEDS ORDERED: ALUMINUM/MAGNESIUM SUSP 30 ML UDC PO PRN (00:50)
[2019-09-18] MEDS ORDERED: NITROGLYCERIN SL 0.4 MG/TAB TAB SL PRN (00:50)
[2019-09-18] MEDS ORDERED: ACETAMINOPHEN 325 MG TAB PO PRN (00:50)
[2019-09-18 01:55] LABS: Albumin Level 3.6 gm/dl (3.4-5.0); BUN Creatinine Ratio 26.3 (10-20); Calcium 9.3 mg/dl (8.5-10.1); Creatinine Clr Calc Pharmacy 38.3 ml/min; Est GFR (African American) 50.6; Est GFR (Non-African American) 43.7; Magnesium 2.2 mg/dl (1.8-2.4); Phosphorus 3.8 mg/dl (2.5-4.9)
[2019-09-18] MEDS: NITROGLYCERIN 2% OINTMENT 30GM TUBE EXT SCH ×2 (04:41→11:27)
[2019-09-18] MEDS ORDERED: LEVOTHYROXINE SODIUM 125 MCG TABLET PO SCH (06:30)
--- NOTE | 2019-09-18 07:36 | XRay Report ---
XR chest 1V portable CLINICAL HISTORY: Chest Pain COMPARISON STUDY: Chest radiograph December 22, 2018. FINDINGS: Lung volumes are normal. Linear right basilar opacity favors atelectasis. There is no pneum othorax or pleural effusion. Cardiac size is stable. Mediastinal contours are normal. There is no katelynn dence for pulmonary edema. IMPRESSION: No acute cardiopulmonary findings. ACT 112: Negative or not required by law. Electronically signed by: Byron Gomes M.D. 09/18/2019 7:35 AM
[2019-09-18] MEDS ORDERED: NON-FORMULARY MEDICATION (Coenzyme Q10 [Coq-10] 100 MG) PO SCH (09:00)
[2019-09-18] MEDS ORDERED: NON-FORMULARY MEDICATION (Turmeric 400 MG) PO SCH (09:00)
[2019-09-18] MEDS ORDERED: ATORVASTATIN 40 MG TAB PO SCH (09:00)
[2019-09-18] MEDS ORDERED: CLOPIDOGREL BISULFATE 75 MG TAB PO SCH (09:00)
[2019-09-18] MEDS ORDERED: LISINOPRIL/HCTZ 20/12.5MG 1 TAB TAB PO SCH (09:00)
[2019-09-18] MEDS ORDERED: ASPIRIN 81 MG ECTAB PO SCH (09:00)
--- NOTE | 2019-09-18 11:50 | XCELERA ---
[id number]
--- NOTE | 2019-09-18 15:04 | Electrocardiogram Report ---
Test Reason : Blood Pressure : / mmHG Vent. Rate : 060 BPM Atrial Rate : 060 BPM P-R Int : 194 ms QRS Dur : 108 ms QT Int : 396 ms P-R-T Axes : 071 -23 042 degrees QTc Int : 396 ms Sinus rhythm with Premature supraventricular complexes Incomplete left bundle block Borderline ECG When compared with ECG of 22-DEC-2018 21:39, Premature supraventricular complexes are now Present Incomplete left bundle block is now Present Criteria for Septal infarct are no longer Present Confirmed by Kojo Mallory ([id number]) on 09/18/2019 3:04:15 PM Referred By: REFERRED SELF Confirmed By:Kojo Mallory
--- NOTE | 2019-09-18 16:31 | Discharge Summary ---
Date of Service September 18, 2019 Admission HPI Per Admitting Provider The patient is a 83-year-old female with a past medical history including diabetes mellitus type 2, hypertension, bilateral carotid stenosis, hyperlipidemia, hypothyroidism and osteoarthritis. She had a self-limited 1 h our of left parasternal chest discomfort while making her bed earlier this evening. Her family insisted that she come to the emergency department for assessment. She did not have any radiation of discomfort into the neck or shoulder or arm. She did not have any associated lightheadedness or dizziness. She does have chronic right knee pain. Principal Diagnosis Chest pain, elevated blood pressure Discharge Exam Constitutional WD/WN, vitals as above Eyes PERRL, conjunctivae normal, anicteric sclerae ENMT external ear and nose normal, oropharynx normal Neck trachea midline, no thyromegaly Respiratory normal respiratory effort, lungs clear to auscultation Cardiovascular RRR, no murmur, no edema Gastrointestinal (Abdomen) normal bowel sounds, soft, nontender, no hepatosplenomegaly Musculoskeletal no cyanosis or clubbing, extremities motor strength 5/5 Skin no rashes, warm and dry Neurologic patellar DTR's 2+ bilat, sensation intact and PERRL, EOMI, accommodation nl, no face palsy, no dysarthria Psychiatric A+Ox3, euthymic affect Lymphatic no cervical or axillary lymphadenopathy Discharge Data Allergies Allergy/AdvReac Type Severity Reaction Status Date / Time SULFA Allergy Unknown Unknown Uncoded 09/17/19 22:38 VANTINE Allergy Unknown Unknown Uncoded 09/17/19 22:38 Consultations 09/17/19 23:26 ED Decision to Admit Stat 09/18/19 00:50 Consult Case Management - Discharge Planning Routine Hospital Course (1) Chest pain: Chest pain/hypertension- no further chest pain, troponin 0.08, 0.07, no rise and fall and she has chronically elevated troponin no changes on echocardiogram of not, BP was quite elevated on admission, improved while nitro paste applied will add Imdur 30mg daily to BP regimen patient feeling great, no further chest pain, wants to go home d/w her son who will pick her up (2) HTN (hypertension): elevated on admission, some readings as high as 200 systolic better on Nitro paste and her home regimen of Lisinopril/HCTZ will add Imdur 30mg daily, follow up with PCP in a week for BP check (3) T2DM (type 2 diabetes mellitus): Diet-controlled. Check hemoglobin A1c. Glucose upon admission 97 (4) Osteoarthritis of right knee: On turmeric 40 mg daily (5) Dyslipidemia: Continue atorvastatin 40 mg daily. (6) Hypothyroidism: Continue levothyroxine sodium 125 mcg daily (7) History of CVA with residual deficit: continue Plavix 75mg daily, Lipitor, blood pressure control . (8) Chronic kidney disease: Creatinine 1.22 upon admission, at baseline (9) Carotid stenosis, bilateral: Follow-up as an outpatient Total Time Total Time Spent Total Time Spent (In Minutes): 33 minutes Total Time Includes: Examination of the Patient, Discharge Planning and Medication Reconciliation Discharge Plan Discharge Items Patient Disposition: Home - Self-Care Reason For Visit: ELEVATED TROPONIN, CHEST PAIN Discharge Diagnosis: Chest pain Elevated blood pressure Condition on Discharge: Good Goals: improve blood pressure control Activity: Resume your previous activity Weightbearing: Full weightbearing Non-emergency contact: Primary Care Provider Call non-emergency contact if: you have any medication questions and your symptoms worsen Follow-up/Referrals: Jaguar Kelly [Primary Care Provider] - (one week, blood pressure check) Diet: Heart Healthy Addtl Attending Provider Instructions: Medications: - ISOSORBIDE MONONITRATE: 30mg daily, take starting tomorrow morning, this is new blood pressure medication Chest pain, elevated blood pressure no further chest pain, noted that in the ED your blood pressure was quite elevated at times improved with nitro paste that was intended to treat chest pain but also relaxes blood vessels and lowers blood pressure will continue with oral nitroglycerin in the form of Imdur (isosorbide mononitrate) please continue to take your Lisinopril/HCTZ tablets as well follow low sodium diet, no more than 2gm a day please follow up with PCP for blood pressure check next week on Imdur of note, your troponin was 0.08, 0.07 and 0.07, this is minimally elevated, does not raise concern for heart attack also, looking at prior records, you have chronically elevated troponin your echocardiogram shows preserved ejection fraction, no wall motion abnormalities no concerns that this single episode of chest pain represents PA could have been due to elevated blood pressure, as discussed above we will add Imdur to improve blood pressure control please try to stay well hydrated, especially with the hot weather in the summer make an effort to drink at lease one liter of water a day Pending Studies at Discharge: No Stand-Alone Forms: [facility], Smoking Cessation Medications and DC Order Prescriptions: New isosorbide mononitrate 30 mg tablet extended release 24 hr 30 mg PO DAILY Qty: 30 RF: 1 Continued Calcium 600 + D(3) 600 mg calcium- 200 unit Capsule 1 tab PO PM RF: 0 multivitamin [Multiple Vitamins] Tablet 1 tab PO PM RF: 0 clopidogrel 75 mg Tablet 75 mg PO QAM Qty: 30 RF: 3 atorvastatin [Lipitor] 40 mg tablet 40 mg PO DAILY RF: 0 turmeric 400 mg Capsule 400 mg PO DAILY RF: 0 lisinopril-hydrochlorothiazide 20-12.5 mg Tablet 2 tab PO DAILY RF: 0 levothyroxine 125 mcg Tablet 125 mcg PO DAILY RF: 0 coenzyme Q10 [CoQ-10] 100 mg Capsule 100 mg PO DAILY RF: 0 Probiotic 3 billion cell Capsule 0 mmu cells PO DAILY RF: 0 Discharge Orders: Discharge Order (Routine); Ordered 09/18/19 Ordered By: Laurent Escobedo Admission Data Admit Date/Time: 09/17/19 23:48 Attending Provider: Laurent Escobedo Admit Provider: Francisco Javier Guerrero Primary Care Provider: Jaguar Kelly Other Providers: Francisco Javier Guerrero Other Interventions: Discharge Summary Assessment (RN) Last Done: 09/18/19 13:34 DC Date/Time DO NOT enter until pt leaves facility: 09/18/19 14:03 Coding Level of Care Code 20263 OBS Care - Discharge Diagnoses Chest pain R07.9 Chest pain type: unspecified HTN (hypertension) I10 Hypertension type: unspecified T2DM (type 2 diabetes mellitus) E11.9 Osteoarthritis of right knee M17.11 Dyslipidemia E78.5 Hypothyroidism E03.9 History of CVA with residual deficit I69.30 Chronic kidney disease N18.9 Carotid stenosis, bilateral I65.23
[2019-09-18] MEDS ORDERED: MULTIVITAMIN TAB PO SCH (21:00)
[2019-09-18] MEDS ORDERED: CALCIUM 600MG + VIT D 400 IU TAB PO SCH (21:00)
== END 2019-09-18 14:03 | disposition home or self-care (01) ==
LOC: 2S 21:29 → ED 21:29 → SUATTDRO 23:48 → 2S 09-18 00:22

== ENCOUNTER 2020-03-11 16:53 | Inpatient (IN) ==
[2020-03-11] MEDS ORDERED: ASPIRIN CHEW 324 MG PO STA (18:13)
--- NOTE | 2020-03-11 18:18 | Emergency Department Note ---
History of Present Illness General Chief Complaint: Chest Pain Stated Complaint: CHEST PAIN Time Seen by Provider: 03/11/20 18:00 Source: family Limitations: other History of Present Illness Provider Complaint: chest pain Onset (ago): day(s) 2 Duration: now resolved Onset: during rest Pain Radiation: none Severity: mild Current Pain Intensity: 0 Relieved By: + nothing Exacerbated By: + nothing Context: no recent illness, no recent surgery, no recent immobilization, no recent travel, no trauma/injury, no new medications and no history of DVT/PE Associated symptoms: + dyspnea (Heavy breathing); no nausea, no vomiting, no diaphoresis, no sense of impending doom, no syncope, no palpitations, no fever, no cough and no leg swelling Home Medications Medication Instructions Recorded Confirmed Type Calcium 600 + D(3) 1 tab PO PM 01/03/18 09/17/19 History multivitamin [Multiple Vitamins] 1 tab PO PM 01/03/18 09/17/19 History clopidogrel 75 mg PO QAM #30 tab 01/06/18 09/17/19 Rx levothyroxine 125 mcg PO DAILY 09/15/18 09/17/19 History lisinopril-hydrochlorothiazide 2 tab PO DAILY 09/15/18 09/17/19 History atorvastatin [Lipitor] 40 mg PO DAILY 12/22/18 09/17/19 History turmeric 400 mg PO DAILY 12/22/18 09/17/19 History Probiotic 0 mmu cells PO DAILY 09/17/19 09/17/19 History coenzyme Q10 [CoQ-10] 100 mg PO DAILY 09/17/19 09/17/19 History isosorbide mononitrate 30 mg PO DAILY #30 tab 09/18/19 Rx Allergies Allergy/AdvReac Type Severity Reaction Status Date / Time SULFA Allergy Unknown Unknown Uncoded 09/17/19 22:38 VANTINE Allergy Unknown Unknown Uncoded 09/17/19 22:38 Past Med/Surg History Medical History Chronic kidney disease Diabetes Dyslipidemia History of CVA with residual deficit Hypertension Hypothyroidism Osteoarthritis of right knee Surgical History History of cataract surgery Family History Mother , age 69 with heart disease No problems noted. Father No problems noted. Other Family history non-contributory Social History Smoking Status: Never smoker Second Hand Exposure: No; Hx Alcohol Use: No Hx Substance Use: No Preferred Language: Lithuanian Communication Ability: Effective Guest Services Officer Required: No Beliefs That Will Affect Care: None Current Living Situation: Family Current Living Situation Comment: pt lives with son at home Feels Safe at Home: Yes Assistive Devices: Walker Review of Systems Unobtainable due to cognitive status Physical Exam Vital Signs Vital Signs - 24 hr 03/11/20 16:57 03/11/20 18:19 03/11/20 18:20 Temperature 37 C Temperature Source Temporal Artery Scan Pulse Rate 67 Pulse Rate [Apical] 62 Pulse Rhythm [Apical] Regular Pulse Strength [Apical] Respiratory Rate 18 16 Respiratory Effort / Characteristics Non-Labored Respiratory Depth Normal Respiratory Pattern Regular Blood Pressure 170/80 H Blood Pressure [Left Arm] 151/65 H Blood Pressure Mean 110 Blood Pressure Mean [Left Arm] 93 Blood Pressure Position [Left Arm] Lying Pulse Oximetry 97 97 97 Oxygen Delivery Method Room Air Room Air Room Air Sepsis Recent Fever Within 48 Hours No Sepsis New/Unexplained Change in Mental Status N/A Sepsis Action Taken by Nursing No Action Required 03/11/20 19:07 Temperature Temperature Source Pulse Rate Pulse Rate [Apical] 59 L Pulse Rhythm [Apical] Regular Pulse Strength [Apical] Normal Respiratory Rate 18 Respiratory Effort / Characteristics Non-Labored Spontaneous Respiratory Depth Normal Respiratory Pattern Regular Blood Pressure Blood Pressure [Left Arm] 151/65 H Blood Pressure Mean Blood Pressure Mean [Left Arm] 93 Blood Pressure Position [Left Arm] Pulse Oximetry 99 Oxygen Delivery Method Room Air Sepsis Recent Fever Within 48 Hours Sepsis New/Unexplained Change in Mental Status Sepsis Action Taken by Nursing Physical Exam EYES: Conjunctivae and EOM are normal. Pupils are equal, round, and reactive to light. Right eye exhibits no discharge. Left eye exhibits no discharge. No scleral icterus. NECK: Normal range of motion. Neck supple. No JVD present. No spinous process tenderness present. No carotid bruit present. No rigidity. No tracheal deviation and normal range of motion present. No Brudzinski's sign and no Kernig's sign noted. CV: Normal rate, regular rhythm, normal heart sounds and intact distal pulses. There is no peripheral edema. Palpable radial pulses bue. PULM/CHEST: Effort normal and breath sounds normal. No respiratory distress. No stridor. She has no wheezes. She has no rales. -Chest Wall: She exhibits no tenderness. ABD: The abdomen is soft. Bowel sounds are normal. She has no distension. No mass is present. There is no tenderness. There is no rebound, no guarding, no Jones's sign and no tenderness at McBurney's point. Rovsig negative MUSC/SKEL: Normal range of motion. There is no peripheral edema, tenderness or deformity. LYMPH: No cervical adenopathy. NEURO: No cranial nerve deficit or sensory deficit. Coordination and gait normal. GCS eye subscore is 4. GCS verbal subscore is 5. GCS motor subscore is 6. Cerebellar tests wnl. SKIN: Skin is warm and dry. She is not diaphoretic. Course Course 1800: The patient was evaluated in room B11. A complete history and physical exam was performed. Cardiac monitoring: An order was placed for continuous cardiac monitoring. The monitor shows a rate of 60 with sinus rhythm EMR reviewed. Patient has a history of CKD and elevated troponins. Her troponins have been chronically elevated since 2018 in our system. Her baseline troponin is around 0.16 and in August 2019 her troponins were 0.04 and 0.077.. Patient had a TTE in August 2019 which showed an ejection fraction of 65% with no valve pathology and no regional wall abnormalities. 1906: Vital signs stable. Patient reports no chest pain at this time. Patient's troponin is elevated 2.98. Patient has never had a troponin of this high in our system back to 2018. Patient's creatinine is at baseline. Patient reports no chest pain at this time. [facility] Dr. Sheffield notified. Administered Medications Discontinued Medications Aspirin (Aspirin Chew 324 Mg) 324 mg PO NOW STA Stop: 03/11/20 18:14 Last Admin: 03/11/20 18:31 Dose: 324 mg Documented by: [id number] Medical Decision Making Laboratory Data Result diagrams: 03/11/20 18:10 03/11/20 18:10 Labs: Lab Results 03/11/20 03/11/20 03/11/20 Range/Units 18:10 18:10 18:10 WBC 5.83 (4.8-10.8) K/uL RBC 4.29 (4.2-5.4) M/uL Hgb 12.4 (12.0-16.0) g/dL Hct 37.4 (37-47) % MCV 87.2 (80-100) fL MCH 28.9 (25-34) pg MCHC 33.2 (32-36) g/dL RDW Std Deviation 43.7 (36.4-46.3) fL RDW Coeff of Michaela 13.7 (11.5-14.5) % Plt Count 276 (130-400) K/uL MPV 10.3 (7.4-10.4) fL Immature Gran % (Auto) 0.2 % Neut % (Auto) 56.3 % Lymph % (Auto) 27.8 % [place] % (Auto) 9.1 % Eos % (Auto) 6.3 % Baso % (Auto) 0.3 % Neut # (Auto) 3.28 (1.4-6.5) K/uL Lymph # (Auto) 1.62 (1.2-3.4) K/uL [place] # (Auto) 0.53 (0.11-0.59) K/uL Eos # (Auto) 0.37 (0-0.5) K/uL Baso # (Auto) 0.02 (0-0.2) K/uL Immature Gran # (Auto) 0.01 (0.00-0.02) K/uL PT 10.9 (9.0-12.0) Seconds INR 1.0 (0.9-1.1) APTT 22.1 (21.0-31.0) Seconds PTT Ratio 0.8 Sodium 141 (136-145) mmol/L Potassium 3.9 (3.5-5.1) mmol/L Chloride 110 H (98-107) mmol/L Carbon Dioxide 28 (21-32) mmol/L Anion Gap 3.0 (3-11) BUN 32 H (7-18) mg/dl Creatinine 1.15 (0.6-1.2) mg/dl Est Cr Clr Drug Dosing 38.1 ml/min Est GFR ( Amer) 50.2 Est GFR (Non-Af Amer) 43.4 BUN/Creatinine Ratio 28.0 H (10-20) Glucose 103 H (70-99) mg/dl Calcium 9.0 (8.5-10.1) mg/dl Troponin I 2.980 H* (0-0.045) ng/ml Lipase 233 (73-393) U/L Imaging Data Chest x-ray: Radiologist's impression: XR chest 1V portable HISTORY: Atypical Chest Pain COMPARISON: Chest 09/17/2019. FINDINGS: Cardiac silhouette remains mildly enlarged. There is mild perihilar interstitial/vascular thickening. This has progressed suggestive of mild congestive change. No new focal lung consolidations to suggest pneumonia. No pleural effusions. No pneumothorax. IMPRESSION: Mild cardiomegaly with mild central pulmonary vascular congestion without overt edema. This has slightly progressed. ACT 112: Negative or not required by law. Electronically signed by: Iain Brewer M.D. 03/11/2020 6:48 PM Dictated: 03/11/201845 Transcribed: 03/11/201845 ECG Data Indication: chest pain Rate (beats per minute): 59 Rhythm: normal sinus Findings: no ST depression, no T-wave inversion, no ST elevation and no prolonged QT Comparison ECG Date: no prior available Change: no significant change Additional Comments: Left ventricular hypertrophy MDM Narrative 1800: The patient was evaluated in room B11. A complete history and physical exam was performed. Cardiac monitoring: An order was placed for continuous cardiac monitoring. The monitor shows a rate of 60 with sinus rhythm EMR reviewed. Patient has a history of CKD and elevated troponins. Her troponins have been chronically elevated since 2018 in our system. Her baseline troponin is around 0.16 and in August 2019 her troponins were 0.04 and 0.077.. Patient had a TTE in August 2019 which showed an ejection fraction of 65% with no valve pathology and no regional wall abnormalities. 1906: Vital signs stable. Patient reports no chest pain at this time. Patient' s troponin is elevated 2.98. Patient has never had a troponin of this high in our system back to 2018. Patient's creatinine is at baseline. Patient reports no chest pain at this time. [facility] Dr. Sheffield notified. Impression & Plan Chest pain Discharge Plan Visit Data Chief Complaint: Chest Pain Stated Complaint: CHEST PAIN ED Provider: Tomas Gold Discharge Problem: Chest pain Patient Disposition: Being Evaluated by Hospitalist Forms Stand Alone Forms: My [facility] Prescriptions Prescriptions: No Action Calcium 600 + D(3) 600 mg calcium- 200 unit Capsule 1 tab PO PM RF: 0 multivitamin [Multiple Vitamins] Tablet 1 tab PO PM RF: 0 clopidogrel 75 mg Tablet 75 mg PO QAM Qty: 30 RF: 3 atorvastatin [Lipitor] 40 mg tablet 40 mg PO DAILY RF: 0 turmeric 400 mg Capsule 400 mg PO DAILY RF: 0 lisinopril-hydrochlorothiazide 20-12.5 mg Tablet 2 tab PO DAILY RF: 0 levothyroxine 125 mcg Tablet 125 mcg PO DAILY RF: 0 coenzyme Q10 [CoQ-10] 100 mg Capsule 100 mg PO DAILY RF: 0 Probiotic 3 billion cell Capsule 0 mmu cells PO DAILY RF: 0 isosorbide mononitrate 30 mg tablet extended release 24 hr 30 mg PO DAILY Qty: 30 RF: 1 Referrals Referrals: Jaguar Kelly [Primary Care Provider] - Discharge Problem: Chest pain Qualifiers: Chest pain type: unspecified Qualified Code(s): R07.9 - Chest pain, unspecified
[2020-03-11 18:19] LABS: Basophils # (auto) 0.02 K/uL (0-0.2); Basophils % (auto) 0.3 %; Eosinophils # (auto) 0.37 K/uL (0-0.5); Eosinophils % (auto) 6.3 %; Hematocrit (blood only) 37.4 % (37-47); Hemoglobin 12.4 g/dL (12.0-16.0); Immature Granulocytes # (auto) 0.01 K/uL (0.00-0.02); Immature Granulocytes % (auto) 0.2 %; Lymphocytes # (auto) 1.62 K/uL (1.2-3.4); Lymphocytes % (auto) 27.8 %; Mean Corpuscular Hemoglobin 28.9 pg (25-34); Mean Corpuscular Hgb Conc 33.2 g/dL (32-36); Mean Corpuscular Volume 87.2 fL (80-100); Mean Platelet Volume 10.3 fL (7.4-10.4); Monocytes # (auto) 0.53 K/uL (0.11-0.59); Monocytes % (auto) 9.1 %; Neutrophils # (auto) 3.28 K/uL (1.4-6.5); Neutrophils % (auto) 56.3 %; Platelet Count 276 K/uL (130-400); RDW Coefficient of Variation 13.7 % (11.5-14.5); RDW Standard Deviation 43.7 fL (36.4-46.3); Red Blood Count 4.29 M/uL (4.2-5.4); White Blood Count 5.83 K/uL (4.8-10.8)
[2020-03-11 18:29] LABS: Partial Thromboplastin Ratio 0.8; Partial Thromboplastin Time 22.1 Seconds (21.0-31.0); Prothrombin Time 10.9 Seconds (9.0-12.0)
[2020-03-11 18:36] LABS: Creatinine Clr Calc Pharmacy 38.1 ml/min; Est GFR (African American) 50.2; Est GFR (Non-African American) 43.4; Potassium 3.9 mmol/L (3.5-5.1)
--- NOTE | 2020-03-11 18:50 | XRay Report ---
XR chest 1V portable HISTORY: Atypical Chest Pain COMPARISON: Chest 09/17/2019. FINDINGS: Cardiac silhouette remains mildly enlarged. There is mild perihilar interstitial/vascular t hickening. This has progressed suggestive of mild congestive change. No new focal lung consolidations to suggest pneumonia. No pleural effusions. No pneumothorax. IMPRESSION: Mild cardiomegaly with mild central pulmonary vascular congestion without overt edema. This has sligh tly progressed. ACT 112: Negative or not required by law. Electronically signed by: Iain Brewer M.D. 03/11/2020 6:48 PM
[2020-03-11 19:02] LABS: Troponin I 2.98 ng/ml (0-0.045)
--- NOTE | 2020-03-11 19:51 | History & Physical Report ---
Date of Service March 11, 2020 Assessment & Plan (1) Chest pain: Admission and Anticipated Discharge Date Admission Date: Due to the patient's chest pain and elevated troponin we will get her to the hospital proceed as follows: We will continue antiplatelet therapy in the form of aspirin. By her home medication list she does take Plavix once we verify this we will may discontinue the aspirin and continue Plavix instead. We will continue statin therapy in the form of Lipitor she takes 40 mg daily We will check an echocardiogram As the patient does not have any ischemic changes on her EKG and she is currently pain-free we will trend her cardiac enzymes. If her troponin continues to rise we may consider heparinization at that time but for now we will not perform this measure We will consult cardiology due to elevated troponin to see if they feel further testing in the form of stress testing or cardiac catheterization would be warranted For hypertension the patient does take isosorbide as well as lisinopril/HCTZ and we will continue these at her home dose For the present time we will place her on Lovenox for DVT prevention Discussed CODE STATUS with this patient and her daughter who is present at bedside and they note event of cardiopulmonary arrest she will be a level 1 full code History of Present Illness Chief Complaint: I had chest pain Primary Care Provider: Jagura Kelly This is a 84-year-old female who presented to the emergency department at the recommendation of her primary care physician. The patient reports that she had some substernal chest pain yesterday afternoon. She did not report this problem to her family until today. She did admit to having a slight amount of substernal chest pain throughout the morning however it was not as severe as what she experienced last night. The pain did not radiate to her arm or jaw, she did had no shortness of breath, no diaphoresis, no nausea vomiting. She has never experienced this before. Has no prior history of myocardial infarction and has is a lifetime non-smoker. Addition she has never undergone a stress t est and has never had a cardiac catheterization. She was observed in the hospital August 2019 secondary to chest pain. According to the patient and her daughter they merely adjusted her blood pressure medications and did not pursue stress testing at that time. On presentation to the emergency department patient and EKG did not demonstrate any ischemic changes. This was compared to an EKG performed at her primary care physician's office which also did not demonstrate any ischemic changes. She did have a chest x-ray that did show small amount of pulmonary vascular congestion but no pleural effusions were noted. Labs were performed were CBC revealed white blood cell count, hemoglobin, and platelet count were all noted to be within normal range. Coagulation studies were performed and were noted to be within the normal range. Chemistry profile showed sodium and potassium are within normal range. Retina was also noted to be within the normal range. Cardiac enzymes were checked and her troponin was noted to be 2.9. Covid test was sent and is pending. Is no more than mentioned that the patient did receive aspirin in the emergency department. At the time of my exam the patient was resting comfortably in bed and was pain- free. Allergies Allergy/AdvReac Type Severity Reaction Status Date / Time cefpodoxime [From Vantin] Allergy Unknown Unknown Verified 03/11/20 22:31 Sulfa (Sulfonamide Allergy Unknown Unknown Verified 03/11/20 22:31 Antibiotics) Home Medications Medication Instructions Recorded Confirmed Type clopidogrel 75 mg PO QAM #30 tab 01/06/18 03/11/20 Rx lisinopril-hydrochlorothiazide 1 tab PO HS 09/15/18 03/11/20 History atorvastatin [Lipitor] 40 mg PO QAM 12/22/18 03/11/20 History isosorbide mononitrate 30 mg PO DAILY #30 tab 09/18/19 03/11/20 Rx amlodipine 2.5 mg PO DAILY 03/11/20 03/11/20 History levothyroxine 137 mcg PO DAILY 03/11/20 03/11/20 History Past Med/Surg History Medical History Chronic kidney disease Diabetes Dyslipidemia History of CVA with residual deficit Hypertension Hypothyroidism Osteoarthritis of right knee Surgical History History of cataract surgery Family History Mother , age 69 with heart disease No problems noted. Father No problems noted. 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, Doent drink enough.) Feels Safe at Home: Yes Safety Concerns: Feels Safe At This Time Assistive Devices: Denture - Upper and Walker Assistive Devices Comment: right leg weaker then left Review of Systems Constitutional: no fever and no body aches Eyes: no diplopia Ear, Nose, Mouth, Throat: no ear pain Respiratory: no cough and no dyspnea Cardiovascular: + chest pain; no radiating jaw, neck or arm pain, no dyspnea on exertion, no orthopnea and no syncope Gastrointestinal: no nausea and no vomiting Genitourinary: no dysuria Musculoskeletal: no back pain Integumentary: no rash Neurologic: no localized weakness Physical Exam Constitutional: well developed and well nourished; no acute distress Eyes: no conjunctival abnormality ENMT: Ears: no hearing impairment Neck: trachea midline Respiratory: normal respiratory effort, lungs clear to auscultation Cardiovascular: Rate/Rhythm: regular rate and regular rhythm Vessels: dorsalis pedis pulses present and radial pulses present Gastrointestinal (Abdomen): Percussion/Palpation: abdomen soft; abdomen nontender Musculoskeletal: No calf tenderness or gross orthopedic abnormalities Skin: no rashes, warm and dry Neurologic: moves all extremities Psychiatric: Orientation: alert and oriented to person Patient is noted to be confused to place and time Results & Data Results & Data ([facility]) Vital Signs (Past 12 Hours) Vital Signs Temp Pulse Pulse Resp BP BP Pulse Ox 03/11/20 19:07 59 L 18 151/65 H 99 03/11/20 18:20 62 16 151/65 H 97 03/11/20 18:19 97 03/11/20 16:57 37 C 67 18 170/80 H 97 Code Status & VTE Plan VTE Prophylaxis Plan VTE Prophylaxis will be ordered: Yes Supervising Physician Co-Signing Physician Notes Patient seen and examined, chart reviewed, case discussed with PAVAN Connor and I agree with his assessment and plan as documented above. Briefly, patient is an 84yo C female with history of DM, HTN, HLP, CKD and prior CVA presenting after an episode of substernal chest discomfort yesterday evening. On arrival she is afebrile, HD stable, nontoxic in appearance, NAD Skin - normal color and turgor, no rash HEENT - NC/AT, PERRL, EOMI, Neck supple, no JVD Heart - +S1/S2, regular, no m/r/g Lungs - CTA Abd - +BS, soft, NT/ND Ext - No edema Labs and images reviewed. Elevated troponin at 2.98 EKG with no ischemic changes Assessment/Plan - suspect NSTEMI. Repeat troponin elevated at 4.84 -Heparin drip -Check 2D echo -Cardiology consultation -Continue ASA/Plavix/Statin -Remainder of plan as above PG Care Time/CCT Total # of Minutes Spent Total Time Spent with Patient: Total time spent is greater than 50% in coordination of care (as documented) at patient's floor/unit and/or counseling patient: Coding Level of Care Code 50763 Initial Inpt Care Lvl 3 Diagnoses Chest pain R07.9 Chest pain type: unspecified (1) Chest pain Chest pain type: unspecified Qualified Code(s): R07.9 - Chest pain, unspecified
[2020-03-11] MEDS ORDERED: NITROGLYCERIN SL 0.4 MG/TAB TAB SL PRN (22:22)
[2020-03-11] MEDS ORDERED: ACETAMINOPHEN 325 MG TAB PO PRN (22:22)
[2020-03-11] MEDS ORDERED: ONDANSETRON INJ 2 MG/ML 2 ML VIAL IV PRN (22:22)
[2020-03-11] MEDS ORDERED: MoRPHine SULFATE 2 MG/ML CARP IV PRN (22:22)
[2020-03-12 00:44] LABS: Creatine Kinase MB 9.5 ng/ml (0.5-3.6)
[2020-03-12] MEDS ORDERED: HEPARIN SODIUM/DEXTROSE 25,000 UNITS/500 ML BAG IV SCH (01:00)
[2020-03-12] MEDS ORDERED: Heparin IV Standard *NO* Bolus IV ONE (01:00)
--- NOTE | 2020-03-12 07:35 | Hospitalist Progress Note ---
Date of Service March 12, 2020 Assessment & Plan (1) NSTEMI (non-ST elevated myocardial infarction): 84 yo F PMHx HTN, HLD, DM2, CVA, hypothyroidism admitted for NSTEMI. NSTEMI: - Currently on Plavix, atorvastatin 40mg, lisinopril/HCTZ. - Started on Toprol XL 50mg daily as well as baby aspirin. - Cardiology following and appreciate recommendations. - Echo performed which showed mild concentric LVH, no wall motion abnormalities. - Due to elevation of troponin to ~7, cardiac catheterization performed which showed: - 1. Mild nonobstructive coronary artery disease, 40% mid LAD. 30% ostial D2, 30% ostial/proximal RCA, normal intracardiac filling pressure - Elevated troponin potentially secondary to vasospasm versus transient small vessel obstruction. - Continue home dual antiplatelet therapy, statin and antihypertensive regimen. - Hgb A1c 6.1%, no intervention needed at this time. - Continue risk modification with HTN management. Lipid panel with good control with current atorvastatin dosing. CKD Stage II: - stable DM2: - Hgb A1c 6.1%, no intervention needed at this time as patient's A1c at goal for age and comorbidities. HTN: - Continue lisinopril/HCTZ, Toprol XL, amlodipine. HLD: - Continue atorvastatin 40mg daily. Hypothyroidism: - Continue 137mcg daily. Hx of CVA: Hemiplga following cerebral infrc aff right dominant side - stable. Code Status: FULL CODE Diet: heart Healthy, DM2 DVT ppx: Heparin 5000u SQ q12h Dispo: suspect discharge tomorrow following medical management (2) Chronic kidney disease: (3) Hypothyroidism: (4) Dyslipidemia: (5) T2DM (type 2 diabetes mellitus): (6) HTN (hypertension): Admission and Anticipated Discharge Date Admission Date: March 11, 2020 Supervising Physician Co-Signing Physician Notes Resident Physician Supervision Note: I independently interviewed and examined the patient and verified the kyle history and physical, reviewed labs and image studies, discussed the case with the resident Dr. Oakley and agree with the findings and care plan. Subjective Patient without acute events overnight. Reports feeling fine today, no chest pain, shortness of breath, dizziness, headache, abdominal pain, nausea, vomiting. Review of Systems Review of Systems: All systems reviewed & are unremarkable except as noted in HPI & below Constitutional: no fever, no chills and no malaise Respiratory: no cough and no dyspnea Cardiovascular: no chest pain, no palpitations and no edema Gastrointestinal: no abdominal pain, no constipation and no diarrhea/loose stools Genitourinary: no dysuria and no hematuria Physical Exam Constitutional: WD/WN, vitals as above Respiratory: normal respiratory effort, lungs clear to auscultation Cardiovascular: RRR, no murmur, no edema Gastrointestinal (Abdomen): normal bowel sounds, soft, nontender, no hepatosplenomegaly Skin: no rashes, warm and dry Psychiatric: A+Ox3, euthymic affect Results & Data Results & Data ([facility]) Vital Signs (Past 12 Hours) Vital Signs Temp Pulse Pulse Resp BP BP Pulse Ox 03/12/20 04:20 36.5 C 65 14 158/69 H 94 03/12/20 00:00 61 03/11/20 22:23 36.7 C 66 18 126/44 L 96 03/11/20 21:54 61 20 112/41 L 97 03/11/20 19:52 59 L 18 142/73 H 98 Resident Activity Tracking Resident Involvement: Resident Care Provided Care Provided: Adult Hospital Medicine (1) T2DM (type 2 diabetes mellitus) Diabetes mellitus complication status: without complication Diabetes mellitus prison insulin use: without prison use Qualified Code(s): E11.9 - Type 2 diabetes mellitus without complications (2) Hypothyroidism Hypothyroidism type: unspecified Qualified Code(s): E03.9 - Hypothyroidism, unspecified (3) Chronic kidney disease Chronic kidney disease stage: stage 2 (mild) Qualified Code(s): N18.2 - Chronic kidney disease, stage 2 (mild) (4) HTN (hypertension) Hypertension type: unspecified Qualified Code(s): I10 - Essential (primary) hypertension
[2020-03-12 07:50] LABS: Creatine Kinase MB 7.1 ng/ml (0.5-3.6)
[2020-03-12 08:04] LABS: Partial Thromboplastin Ratio 3.1
[2020-03-12 08:08] LABS: Estimated Average Glucose 128 mg/dl; Hemoglobin A1C 6.1 % (4.5-5.6)
[2020-03-12 08:16] LABS: Chol HDL Ratio 2; Cholesterol 108 mg/dl (0-200); HDL Cholesterol 50 mg/dl; LDL Cholesterol Calculated 48 mg/dl; Triglycerides 52 mg/dl (0-150); VLDL Cholesterol 10 mg/dl
[2020-03-12 08:24] LABS: Partial Thromboplastin Time 85.4 Seconds (21.0-31.0)
[2020-03-12] MEDS: ISOSORBIDE MONO EXTENDED REL 30 MG TABCR PO SCH (08:55)
[2020-03-12] MEDS: amLODIPine BESYLATE 5 MG TAB PO SCH (08:55)
[2020-03-12] MEDS: LEVOTHYROXINE SODIUM 137 MCG TABLET PO SCH (08:55)
[2020-03-12] MEDS: ATORVASTATIN 40 MG TAB PO SCH (08:56)
[2020-03-12] MEDS: CLOPIDOGREL BISULFATE 75 MG TAB PO SCH (08:56)
[2020-03-12] MEDS: ASPIRIN 81 MG ECTAB PO SCH (08:57)
--- NOTE | 2020-03-12 09:27 | Cardiology Consultation ---
Date of Consultation March 12, 2020 Assessment & Plan (1) Chest pain: She presented with chest discomfort which she still recalls is occurring several days before arrival although the chart notes that she had it yesterday as well. I think her memory is poor. She could have other episodes. The fact that her troponin is significantly elevated suggest that the chest discomfort is due to coronary artery disease. Other possibilities include pericarditis with myocarditis but that seems unlikely under the circumstances. (2) CAD (coronary artery disease): I suspect she has coronary artery disease, that has been suspected before and she does have evidence of atherosclerosis elsewhere. Options therefore include catheterization to define her anatomy and consider intervention versus ongoing medical therapy. Since she is pain-free (although on heparin) medical therapy may be a viable option but defining her anatomy may allow us to treat her properly now and prevent a future infarction. I do want to continue to trend her troponins since they have not started to decline at this point. She does not have wall motion abnormalities so has not had a significant territory infarction as yet. (3) HTN (hypertension): Based on measurements here she seems to have labile blood pressure, although for the most part it is elevated. We should try to control her blood pressure better. For some reason she is not on a beta-leonor, possibly due to her relatively low heart rate however she really should be on one. I am going to add low-dose metoprolol succinate to her regimen and observe for bradycardia. We should stop the amlodipine unless needed for continued high blood pressure or if her heart rate drops, that does not have any specific benefit for coronary artery disease or myocardial infarction. (4) Dyslipidemia: She is on atorvastatin 40 mg daily, she probably should be on 80 mg daily (although her cholesterol is good, data would suggest she should be on maximal statin therapy if we are treating coronary artery disease). Her last liver function tests from August 2019 were normal. I will repeat them now and if normal I would suggest increasing her to 80 mg daily. History of Present Illness Reason for Consultation: Chest pain, elevated troponin Attending Physician: Amie Rendon MD History of Present Illness This is an 84-year-old woman with a history of diabetes mellitus, hypertension, dyslipidemia, carotid stenosis with a prior stroke (although felt likely to be thrombotic not embolic) in December 2017 as well as a reported history of coronary artery disease although I do not believe that was specifically diagnosed (she has never had a myocardial infarction or catheterization to my knowledge, and has not had stress testing). She has had a number of ec hocardiograms in the past, most recently September 18, 2019, which showed normal left ventricular systolic function, concentric left ventricular hypertrophy but no wall motion abnormalities. She has had a number of electrocardiograms in the past as well as on March 11, 2020 at 1705 none of which showed ischemic change. She has had a consistently elevated troponin in the past but on multiple admissions it has ranged between somewhat less than 0.1 up to 0.2 in December 2017, however it is higher than that now. Her current presentation was prompted by substernal chest discomfort described to her primary care physician on March 11, 2020 and was referred to the emergency room. Here she reportedly had continued chest discomfort although it was significantly improved. Her troponin here on presentation March 11, 2020 at 1810 was 2.980, it has risen to 5.610 at 7:00 this morning. At the time of my evaluation she denies having chest discomfort, she tells me that she had at 2 days ago but none yesterday or today although the chart would suggest that she had it yesterday. She tells me that currently she feels totally normal. She denies other cardiovascular symptoms such as shortness of breath or palpitations. I am not sure how good her memory is. Allergies Allergy/AdvReac Type Severity Reaction Status Date / Time cefpodoxime [From Vantin] Allergy Unknown Unknown Verified 03/11/20 22:31 Sulfa (Sulfonamide Allergy Unknown Unknown Verified 03/11/20 22:31 Antibiotics) Home Medications Medication Instructions Recorded Confirmed Type clopidogrel 75 mg PO QAM #30 tab 01/06/18 03/11/20 Rx lisinopril-hydrochlorothiazide 1 tab PO HS 09/15/18 03/11/20 History atorvastatin [Lipitor] 40 mg PO QAM 12/22/18 03/11/20 History isosorbide mononitrate 30 mg PO DAILY #30 tab 09/18/19 03/11/20 Rx amlodipine 2.5 mg PO DAILY 03/11/20 03/11/20 History levothyroxine 137 mcg PO DAILY 03/11/20 03/11/20 History Patient History Medical History Chronic kidney disease Diabetes Dyslipidemia History of CVA with residual deficit Hypertension Hypothyroidism Osteoarthritis of right knee Surgical History History of cataract surgery Family History Mother , age 69 with heart disease No problems noted. Father No problems noted. Other Family history non-contributory Social History Smoking Status: Never smoker Second Hand Exposure: Yes; Do You Dip or Chew Tobacco: No; Hx Alcohol Use: Yes Alcohol type: beer Hx Substance Use: No Preferred Language: Luxembourgish Communication Ability: Effective Communication Ability Comment: Some short therm memory loss prior to stroke in [facility] in 2018, Playground Worker Required: No Beliefs That Will Affect Care: None Current Living Situation: Family Current Living Situation Comment: Temporarly living with Daughter Taylor Other Information That Helps Us Care for You: Yes (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 Physical Exam Physical Exam: Constitutional: Alert, cooperative and in no distress. HEENT: Unremarkable Neck: No jugular venous distention, carotid pulses are normal and equal bilaterally without bruits. Pulmonary: Clear to auscultation bilaterally. Cardiac: Regular rhythm with no murmur, gallop or rub. Abdomen: Soft, nontender with normal bowel sounds. Extremities: No edema. Distal pulses intact. Neurologic: No focal findings. Gait is steady. Skin: No rash, ecchymoses or petechiae. Results & Data ([facility]) Vital Signs (Past 12 Hours) Vital Signs Temp Pulse Pulse Resp BP BP Pulse Ox 03/12/20 07:49 36.4 C L 61 22 162/52 H 97 03/12/20 04:20 36.5 C 65 14 158/69 H 94 03/12/20 00:00 61 03/11/20 22:23 36.7 C 66 18 126/44 L 96 03/11/20 21:54 61 20 112/41 L 97 Laboratory Results Cardiac Enzymes 03/11/20 03/12/20 03/12/20 Range/Units 18:10 00:09 07:07 CK-MB (CK-2) 9.5 H 7.1 H (0.5-3.6) ng/ml Troponin I 2.980 H* 4.840 H* 5.610 H* (0-0.045) ng/ml Coagulation 03/11/20 03/12/20 Range/Units 18:10 07:07 PT 10.9 (9.0-12.0) Seconds APTT 22.1 85.4 H* (21.0-31.0) Seconds Lipids 03/12/20 Range/Units 07:07 Triglycerides 52 (0-150) mg/dl Cholesterol 108 (0-200) mg/dl HDL Cholesterol 50 mg/dl Cholesterol/HDL Ratio 2 CBC 03/11/20 Range/Units 18:10 WBC 5.83 (4.8-10.8) K/uL RBC 4.29 (4.2-5.4) M/uL Hgb 12.4 (12.0-16.0) g/dL Hct 37.4 (37-47) % Plt Count 276 (130-400) K/uL Neut # (Auto) 3.28 (1.4-6.5) K/uL Lymph # (Auto) 1.62 (1.2-3.4) K/uL [place] # (Auto) 0.53 (0.11-0.59) K/uL Eos # (Auto) 0.37 (0-0.5) K/uL Baso # (Auto) 0.02 (0-0.2) K/uL Comprehensive Metabolic Panel 03/11/20 Range/Units 18:10 Sodium 141 (136-145) mmol/L Potassium 3.9 (3.5-5.1) mmol/L Chloride 110 H (98-107) mmol/L Carbon Dioxide 28 (21-32) mmol/L BUN 32 H (7-18) mg/dl Creatinine 1.15 (0.6-1.2) mg/dl Glucose 103 H (70-99) mg/dl Calcium 9.0 (8.5-10.1) mg/dl Intake and Output 03/11/20 03/12/20 03/12/20 22:59 06:59 14:59 Intake Total 163.2 / 163.2 Output Total 500 / 500 Balance -500 / -500 163.2 / 163.2 Intake: IV 163.2 / 163.2 HEPARIN SODIUM/DEXTROSE 25,000 163.2 / 163.2 units In 500 ml @ 1,200 UNITS/ HR 24 mls/hr IV .[id number] [facility] Rx #:[id number] Output: Urine 500 / 500 Other: Weight 76.2 kg 75.6 kg Weight Measurement Method [facility] Diagnostic Findings Electrocardiogram: Her presenting electrocardiogram from March 11, 2020 at 1705 shows sinus rhythm with left ventricular hypertrophy but no ischemic change and similar to prior tracings. A repeat electrocardiogram this morning shows sinus rhythm at 57 bpm, left ventricular hypertrophy but no acute changes. Telemetry: Sinus rhythm and borderline sinus bradycardia, no significant arrh ythmia Echocardiogram: On preliminary review her LV function is normal without wall motion abnormalities PG Care Time/CCT Total # of Minutes Spent Total Time Spent with Patient: Total time spent is greater than 50% in coordination of care (as documented) at patient's floor/unit and/or counseling patient: Coding Level of Care Code 18700 Inpt Consult Level 5 Diagnoses Chest pain R07.9 Chest pain type: unspecified CAD (coronary artery disease) I25.10 HTN (hypertension) I10 Hypertension type: unspecified Dyslipidemia E78.5 Time Spent (min) 65 (1) Chest pain Chest pain type: unspecified Qualified Code(s): R07.9 - Chest pain, un specified (2) HTN (hypertension) Hypertension type: unspecified Qualified Code(s): I10 - Essential (primary) hypertension
[2020-03-12 10:23] LABS: Bilirubin Direct 0.2 mg/dl (0-0.2); Bilirubin,Total 0.5 mg/dl (0.2-1); Total Protein 5.8 gm/dl (6.4-8.2)
[2020-03-12] MEDS: METOPROLOL SUCC 50MG EXT REL TAB PO SCH (11:25)
[2020-03-12] MEDS ORDERED: niCARdipine HCL INJ 2.5 MG/ML 10 ML AMP ONE (12:28)
[2020-03-12] MEDS ORDERED: HEPARIN (PORCINE) 1000 UNIT/ML 10 ML (CATH LAB USE ONLY) ONE (12:28)
[2020-03-12] MEDS ORDERED: MIDAZOLAM HCL 1 MG/ML 2ML VIAL ONE (12:29)
[2020-03-12] MEDS ORDERED: fentaNYL citrate 100 MCG/2 ML VIAL ONE (12:29)
[2020-03-12] MEDS ORDERED: NITROGLYCERIN/D5W 100MCG/ML 20ML SYR ONE (12:29)
--- NOTE | 2020-03-12 12:51 | XCELERA ---
[id number]
--- NOTE | 2020-03-12 13:20 | Pre Anesthesia Assessment ---
Date of Service March 12, 2020 Pre Sedation Assessment Vital Signs Temp Pulse Pulse Resp BP BP Pulse Ox 03/12/20 11:37 98.1 F 67 18 139/60 96 03/12/20 10:00 57 L 15 03/12/20 07:49 97.5 F L 61 22 162/52 H 97 03/12/20 07:29 64 22 162/52 H 03/12/20 04:20 97.7 F 65 14 158/69 H 94 03/12/20 00:00 61 03/11/20 22:23 98.1 F 66 18 126/44 L 96 03/11/20 21:54 61 20 112/41 L 97 03/11/20 19:52 59 L 18 142/73 H 98 03/11/20 19:07 59 L 18 151/65 H 99 03/11/20 18:20 62 16 151/65 H 97 03/11/20 18:19 97 03/11/20 16:57 98.6 F 67 18 170/80 H 97 Cardiovascular RRR, no murmur, no edema Respiratory normal respiratory effort, lungs clear to auscultation Pre-Sedation Airway Assessment Smoking Status: Never smoker Hx Sleep Apnea: No Hx Difficult Intubation: No Short, Thick Neck: No Thyromental Distance: > or= 3.5 Finger Breadths Oral Cavity: + WNL Mallampati Class: III ASA: ASA3 NPO Status Date of Last Intake of Solid Food: 03/11/20 Procedure Planning Contraindications for Sedation: none Current Medications Reviewed: Yes Notes The planned sedation has been discussed with the patient. Informed Consent was obtained. I have identified the patient, determined the appropriateness of sedation and have assessed the patient immediately prior to the procedure. All medicine(s) and interventions are by my order.
--- NOTE | 2020-03-12 13:20 | Post Anesthesia Assessment ---
Date of Service March 12, 2020 Post Sedation Assessment Vital Signs Temp Pulse Pulse Resp BP BP Pulse Ox 03/12/20 11:37 98.1 F 67 18 139/60 96 03/12/20 10:00 57 L 15 03/12/20 07:49 97.5 F L 61 22 162/52 H 97 03/12/20 07:29 64 22 162/52 H 03/12/20 04:20 97.7 F 65 14 158/69 H 94 03/12/20 00:00 61 03/11/20 22:23 98.1 F 66 18 126/44 L 96 03/11/20 21:54 61 20 112/41 L 97 03/11/20 19:52 59 L 18 142/73 H 98 03/11/20 19:07 59 L 18 151/65 H 99 03/11/20 18:20 62 16 151/65 H 97 03/11/20 18:19 97 03/11/20 16:57 98.6 F 67 18 170/80 H 97 Recovery Score Activity: Moves 4 extremities Respiration: Deep Breath/Cough Circulation: +/-20% PreAnes Value Consciousness: Fully Awake Oxygen Saturation: O2 needed for >90% Discharge Sedation Level of Care: Fast Track Phase II Post Sedation Plan On clinical assessment, the patient appears to have tolerated the sedation without complications. Patient is recovering as anticipated. Patient will continue to be monitored by nursing and may be discharged when sedation discharge criteria are met per below protocol. Upon Completions of procedure up to 15 minutes continue every 5 minute vital signs and the P.A.R. score; then discharge to a Phase I or Fast Track to Phase II per the following guidelines: * Discharge Patient to appropriate Phase II area if PAR is 8 or greater or return to pre- procedure baseline. The post - procedure orders will be as directed. * If PAR score is less than 8 or not return to pre-procedure baseline then patient will follow Phase I monitoring till PAR is reached for Phase II. The Phase I may be done in procedure room or may call to secure a Phase I area. * If naloxone or flumazenil are used for reversal, hold in Phase I for continued monitoring from when last reversal dose was given for a minimum of 60 minutes or longer pending the nurse and/or physician discretion of patient condition before discharge to Phase II. Please call the Sedation Physician to re-evaluate and complete post-note for discharge to Phase II area. Do NOT discharge from procedure sedation or Phase 1 until post- sedation evaluation note is complete by procedure /sedation MD Sedation Discharge Instructions to be given to the patient at discharge to home.
--- NOTE | 2020-03-12 13:24 | Cardiac Catheterization ---
[facility] Data: Account Collector Cardiac Status Clinical evaluation leading to the procedure CAD Presenation: Non STEMI Anginal Classification: CCS IV Heart Failure: No Cardiogenic Shock within 24 Hours: No Cardiac Arrest within 24 Hours: No Imaging Studies Past 6 Months: Yes Stress Studies Past 6 Months: No Diagnostic Physicians Name: Lloyd Mack MD Status: Elective Closure Device Percutaneous Entry Location: Radial Closure Device: Radial Band Recommendations: Medical Therapy and/or Counseling Intraprocedure Events Significant Disection: No Perforation: No Cardiac Cath Procedure Full Procedure Date March 12, 2020 Pre-Procedure Diagnosis Pre-Procedure Diagnosis: Non STEMI and Acute Coronary Syndrome AUC Score AUC Score: 8 Post-Procedure Diagnosis Post-Procedure Diagnosis: Mild CAD and Normal Intracardiac Pressures Procedure(s) Performed Procedure(s) Performed: Coronary Angiography and Left Heart Cath Sales Product Manager Lloyd Mack MD Coating Operator(s) Sailaja Estimated Blood Loss Estimated Blood Loss: 5 Medication(s) Medication(s): Fentanyl, Heparin, Lidocaine 1%, Nicardipine and Nitroglycerin Summary of Findings Indication: NSTEMI Access: 6Fr slender right radial artery Catheters: [place] Findings: LM -normal caliber, no significant disease LAD -large caliber, 40% mid segment stenosis just after takeoff of large second diagonal. Distal vessel luminal regularities as wraps around apex. D2 30% ostial stenosis. Circumflex -medium caliber, angiographically normal RCA -dominant, medium caliber, 20-30% ostial/proximal disease, mid segment luminal regularities. Small PDA, PLB without significant disease. LVEDP -13 Arterial Closure: TR band Summary: 1. Mild nonobstructive coronary artery disease -40% mid LAD. 30% ostial D2 30% ostial/proximal RCA 2. Normal intracardiac filling pressure Recommendations: No high risk coronary artery disease identified. Elevated troponin potentially secondary to vasospasm versus transient small vessel obstruction. Also, consider noncoronary etiologies. Can discontinue heparin infusion Continue home dual antiplatelet therapy, statin and antihypertensive regimen. Hemodynamics Rest Ao:: 125/48/96 Final Ao: 134/45/71 LV: 143/13 Recommendations Recommendations: Medical Therapy and/or Counseling Specimens Specimens: None Radiation Exposure (mGy) 563 Contrast (mls) 60 Drains Drains: None Anesthesia Moderate Procedural Complication(s) None Disposition ICU I attest to the content of the Intraoperative Record and any orders documented therein. Any exceptions are noted below. [facility] Card Cath Procedure Codes Cardiac Catheterization Procedure 1: Cardiovascular Cath Procedures: 35904 Coronaries and LHC (+/-LV) Moderate Sedation Procedure 1: Sedation/Anesthesia: 41190 Mod Sedation by the same physician;Init15 Min Child Age 5 & Up PG Care Time/CCT Total # of Minutes Spent Total Time Spent with Patient: Total time spent is greater than 50% in coordination of care (as documented) at patient's floor/unit and/or counseling patient:
[2020-03-12] MEDS ORDERED: ONDANSETRON INJ 2 MG/ML 2 ML VIAL IV PRN (13:35)
[2020-03-12] MEDS ORDERED: SODIUM CHLORIDE 0.9% 1000ML 1,000 ML IV SCH (13:45)
--- NOTE | 2020-03-12 15:00 | Electrocardiogram Report ---
Test Reason : Blood Pressure : / mmHG Vent. Rate : 059 BPM Atrial Rate : 059 BPM P-R Int : 188 ms QRS Dur : 110 ms QT Int : 408 ms P-R-T Axes : 062 -24 025 degrees QTc Int : 403 ms Sinus bradycardia Left ventricular hypertrophy with QRS widening Borderline ECG When compared with ECG of 17-SEP-2019 21:40, Premature supraventricular complexes are no longer Present Confirmed by Neymar Sifuentes ([id number]) on 03/12/2020 3:00:08 PM Referred By: REFERRED SELF Confirmed By:Neymar Sifuentes
--- NOTE | 2020-03-12 15:22 | Electrocardiogram Report ---
Test Reason : Blood Pressure : / mmHG Vent. Rate : 057 BPM Atrial Rate : 057 BPM P-R Int : 196 ms QRS Dur : 100 ms QT Int : 410 ms P-R-T Axes : 071 -33 032 degrees QTc Int : 399 ms Sinus bradycardia Incomplete left bundle block Abnormal ECG When compared with ECG of 11-MAR-2020 17:05, No significant change was found Confirmed by Neymar Sifuentes ([id number]) on 03/12/2020 3:22:31 PM Referred By: REFERRED SELF Confirmed By:Neymar Sifuentes
[2020-03-12] MEDS ORDERED: LISINOPRIL/HCTZ 20/12.5MG 1 TAB TAB PO SCH (21:00)
[2020-03-12] MEDS: HEPARIN SOD 5,000 UNIT/0.5 ML VIAL SQ SCH (22:05)
[2020-03-13] MEDS: CLOPIDOGREL BISULFATE 75 MG TAB PO SCH (08:52)
[2020-03-13] MEDS: ATORVASTATIN 40 MG TAB PO SCH (08:52)
[2020-03-13] MEDS: ISOSORBIDE MONO EXTENDED REL 30 MG TABCR PO SCH (08:52)
[2020-03-13] MEDS: amLODIPine BESYLATE 5 MG TAB PO SCH (08:52)
[2020-03-13] MEDS: LEVOTHYROXINE SODIUM 137 MCG TABLET PO SCH (08:52)
[2020-03-13] MEDS: ASPIRIN 81 MG ECTAB PO SCH (08:53)
[2020-03-13] MEDS: METOPROLOL SUCC 50MG EXT REL TAB PO SCH (08:53)
[2020-03-13] MEDS: HEPARIN SOD 5,000 UNIT/0.5 ML VIAL SQ SCH (08:53)
--- NOTE | 2020-03-13 12:00 | Discharge Summary ---
Date of Service March 13, 2020 Admission HPI Per Admitting Provider This is a 84-year-old female who presented to the emergency department at the recommendation of her primary care physician. The patient reports that she had some substernal chest pain yesterday afternoon. She did not report this problem to her family until today. She did admit to having a slight amount of substernal chest pain throughout the morning however it was not as severe as what she experienced last night. The pain did not radiate to her arm or jaw, she did had no shortness of breath, no diaphoresis, no nausea vomiting. She has never experienced this before. Has no prior history of myocardial infarction and has is a lifetime non-smoker. Addition she has never undergone a stress test and has never had a cardiac catheterization. She was observed in the hospital August 2019 secondary to chest pain. According to the patient and her daughter they merely adjusted her blood pressure medications and did not pursue stress testing at that time. On presentation to the emergency department patient and EKG did not demonstrate any ischemic changes. This was compared to an EKG performed at her primary care physician's office which also did not demonstrate any ischemic changes. She did have a chest x-ray that did show small amount of pulmonary vascular congestion but no pleural effusions were noted. Labs were performed were CBC revealed white blood cell count, hemoglobin, and platelet count were all noted to be within normal range. Coagulation studies were performed and were noted to be within the normal range. Chemistry profile showed sodium and potassium are within normal range. Retina was also noted to be within the normal range. Cardiac enzymes were checked and her troponin was noted to be 2.9. Covid test was sent and is pending. Is no more than mentioned that the patient did receive aspirin in the emergency department. At the time of my exam the patient was resting comfortably in bed and was pain- free. Admission Exam Per Admitting Provider Constitutional: well developed and well nourished; no acute distress Eyes: no conjunctival abnormality ENMT: Ears: no hearing impairment Neck: trachea midline Respiratory: normal respiratory effort, lungs clear to auscultation Cardiovascular: Rate/Rhythm: regular rate and regular rhythm Vessels: dorsalis pedis pulses present and radial pulses present Gastrointestinal (Abdomen): Percussion/Palpation: abdomen soft; abdomen nontender Musculoskeletal: No calf tenderness or gross orthopedic abnormalities Skin: no rashes, warm and dry Neurologic: moves all extremities Psychiatric: Orientation: alert and oriented to person Patient is noted to be confused to place and time Principal Diagnosis NSTEMI Discharge Exam Constitutional WD/WN, vitals as above Respiratory normal respiratory effort, lungs clear to auscultation Cardiovascular RRR, no murmur, no edema Gastrointestinal (Abdomen) normal bowel sounds, soft, nontender, no hepatosplenomegaly Skin no rashes, warm and dry Psychiatric A+Ox3, euthymic affect Discharge Data Allergies Allergy/AdvReac Type Severity Reaction Status Date / Time cefpodoxime [From Vantin] Allergy Unknown Unknown Verified 03/11/20 22:31 Sulfa (Sulfonamide Allergy Unknown Unknown Verified 03/11/20 22:31 Antibiotics) Consultations 03/11/20 19:06 ED Decision to Admit Stat 03/11/20 22:22 Consult Cardiology Routine Procedures Performed Operation Date: 03/12/20 13:00 Actual Procedures p Cath, Left with Cors and Vent - Kana Mack MD s Cineradiography w/Routine Exam - Kana Mack MD Ordered Studies 03/12/20 12:06 CL Cath Imgs for PACS use only Routine Hospital Course (1) NSTEMI (non-ST elevated myocardial infarction): 84 yo F PMHx HTN, HLD, DM2, CVA, hypothyroidism admitted for NSTEMI. NSTEMI: - Currently on Plavix, atorvastatin 40mg, lisinopril/HCTZ. - Started on Toprol XL 50mg daily as well as baby aspirin. This in addition to her home Plavix. She will continue these at home. - Echo performed which showed mild concentric LVH, no wall motion abnormalities. - Due to elevation of troponin to ~7, cardiac catheterization performed which showed: - 1. Mild nonobstructive coronary artery disease, 40% mid LAD. 30% ostial D2, 30% ostial/proximal RCA, normal intracardiac filling pressure - Elevated troponin potentially secondary to vasospasm versus transient small vessel obstruction. - Hgb A1c 6.1%, no intervention needed at this time. - Continue risk modification with HTN management. Lipid panel with good control with current atorvastatin dosing. - Will have follow up with Cardiology. CKD Stage II: - Stable. DM2: - Hgb A1c 6.1%, no intervention needed at this time as patient's A1c at goal for age and comorbidities. HTN: - Continue lisinopril/HCTZ, Toprol XL, amlodipine. - If patient's BP not at goal, defer to PCP for medication changes on TCM visit. HLD: - Continue atorvastatin 40mg daily. Lipid panel showed good cholesterol control. Hypothyroidism: - Continue 137mcg daily. 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 - Stable. Dispo: home with care by family members Total Time Total Time Spent Total Time Spent (In Minutes): see attending attestation Discharge Plan Discharge Items Patient Disposition: Home - Home Health Services Reason For Visit: CHEST PAIN Discharge Diagnosis: NSTEMI Activity: Per Instructions section Non-emergency contact: Primary Care Provider and Building Services Technician Call non-emergency contact if: you have any medication questions and your symptoms worsen Follow-up/Referrals: Eliseo Howe MD [Physician] - 03/29/20 2:30 pm (APPOINTMENT WITH [facility]) Jaguar Kelly [Primary Care Provider] - 03/21/20 2:10 pm (1-2 weeks following discharge APPOINTMENT WITH [facility]) Diet: Heart Healthy Addtl Attending Provider Instructions: You were admitted to the hospital with some chest pain. You were found to have elevated heart enzymes, which indicated you could be having a heart attack. You had a heart catheterization which showed some coronary artery disease, but nothing bad enough to have a stent placed. You were started on a baby aspirin as well as your Plavix medicine, and given a medication called metoprolol which is heart protective and helps your heart work less hard. Your cholesterol levels were checked and were found to be normal. Your blood sugars were mildly elevated, but not high enough to treat with medications. The following medications have been changed for you to take at home: 1) one baby aspirin every day in the morning. 2) one metoprolol 50 milligram pill every day in the morning. 3) You were given a prescription for nitroglycerin, this is a medication to take as needed if you have the same chest pain you came in with. If you need more than one of those tabs, then you should go to the ER to be evaluated. 4) You will otherwise continue your other home medicines. These medications were sent to the [facility] in [place]. You should have follow up with Dr. Howe with Cardiology and with Dr. Kelly. You will have home health coming to the home on Wednesday to check in on you and see if you have any health care needs. Pending Studies at Discharge: No Stand-Alone Forms: My [facility], Smoking Cessation Medications and DC Order Prescriptions: New metoprolol succinate 50 mg Tablet Extended Release 24 Hr 50 mg PO QAM 30 Days Qty: 30 RF: 0 nitroglycerin [Nitrostat] 0.4 mg Tablet, Sublingual 0.4 mg sublingual UD PRN (Reason: chest pain) Qty: 14 RF: 0 aspirin 81 mg Tablet,Delayed Release (Dr/Ec) 81 mg PO QAM 30 Days Qty: 30 RF: 0 Continued clopidogrel 75 mg Tablet 75 mg PO QAM Qty: 30 RF: 3 atorvastatin [Lipitor] 40 mg tablet 40 mg PO QAM RF: 0 lisinopril-hydrochlorothiazide 20-12.5 mg Tablet 1 tab PO HS RF: 0 isosorbide mononitrate 30 mg tablet extended release 24 hr 30 mg PO DAILY Qty: 30 RF: 1 levothyroxine 137 mcg tablet 137 mcg PO DAILY RF: 0 amlodipine 2.5 mg tablet 2.5 mg PO DAILY RF: 0 Discharge Orders: Discharge Order (Routine); Ordered 03/13/20 Ordered By: Nova Oakley Admission Data Admit Date/Time: 03/11/20 19:41 Attending Provider: Amie Rendon Admit Provider: Bryon Connor Primary Care Provider: Jaguar Kelly Other Providers: Faiza Sheffield Alexander W. Other Interventions: Discharge Summary Assessment (RN) Last Done: 03/13/20 17:44 Supervising Physician Co-Signing Physician Notes Resident Physician Supervision Note: I independently interviewed and examined the patient and verified the kyle history and physical, reviewed labs and image studies, discussed the case with the resident Dr. Oakley and agree with the findings and care plan. Resident Activity Tracking Resident Involvement: Resident Care Provided Care Provided: Adult Hospital Medicine
--- NOTE | 2020-03-13 16:32 | Cardiology Progress Note ---
Date of Service March 13, 2020 Assessment & Plan (1) Chest pain: She presented with chest discomfort which she still recalls is occurring several days before arrival although the chart notes that she had it on arrival as well. I think her memory is poor. She could have other episodes. The fact that her troponin was significantly elevated in a pattern consistent with myocardial injury suggests that the chest discomfort was due to coronary artery disease despite lack of residual significant stenosis. Other possibilities include pericarditis with myocarditis but that seems unlikely under the circumstances and does not really explain the rise and fall in troponin in that pattern or the relatively brief chest discomfort. (2) CAD (coronary artery disease): She has coronary artery disease, that has been suspected before and she does have evidence of atherosclerosis elsewhere, catheterization has shown coronary artery disease without obstructive disease. We need to continue risk factor modification for atherosclerosis as well as platelet inhibitors. She should remain on aspirin, Plavix and atorvastatin. (3) HTN (hypertension): Based on measurements here she seems to have labile blood pressure, although for the most part it is elevated. We should try to control her blood pressure better. I would recommend continuing her beta-leonor which she seems to be tolerating well. Her blood pressure remains elevated and we can go up on that or other medications. I do not think she needs a nitrate preparation and I am going to discontinue that. (4) Dyslipidemia: She is on atorvastatin 40 mg daily, she probably should be on 80 mg daily (although her cholesterol is good, data would suggest she should be on maximal statin therapy if we are treating coronary artery disease). Her liver function tests from this admission are normal. I am going to increase her atorvastatin to 80 mg daily. Admission and Anticipated Discharge Date Admission Date: March 11, 2020 Subjective She tells me that she is feeling well today, she is on one-to-one observation however and her history is probably not reliable but she appears comfortable and is eating dinner. Physical Exam Physical Exam: Constitutional: Alert, cooperative and in no distress. HEENT: Unremarkable Neck: No jugular venous distention, carotid pulses are normal and equal bilaterally without bruits. Pulmonary: Clear to auscultation bilaterally. Cardiac: Regular rhythm with no murmur, gallop or rub. Abdomen: Soft, nontender with normal bowel sounds. Extremities: No edema. Distal pulses intact. Her cath site in the right wrist looks good through the dressing, she would not allow me to remove the dressing. Neurologic: No focal findings. Gait was not tested. Skin: No rash, ecchymoses or petechiae. Results & Data ([facility]) Vital Signs (Past 12 Hours) Vital Signs Temp Pulse Pulse Resp BP BP Pulse Ox 03/13/20 08:07 60 18 146/65 H 98 03/13/20 08:00 36.3 C L 03/13/20 07:00 49 L 16 03/13/20 05:00 36.4 C L 53 L 18 146/65 H 97 Laboratory Results Cardiac Enzymes 03/12/20 Range/Units 19:44 Troponin I 3.600 H* (0-0.045) ng/ml Intake and Output 03/13/20 03/13/20 03/13/20 06:59 14:59 22:59 Intake Total 0 / 1379.0 820 / 820 Output Total 75 / 200 Balance -75 / 1179.0 820 / 820 Intake: Oral 0 / 620 820 / 820 Output: Urine 75 / 200 Other: # Unmeasured Voids 4 Weight 74.5 kg Weight Measurement Method Built in [facility] Diagnostic Findings Telemetry: Sinus rhythm and slight sinus bradycardia PG Care Time/CCT Total # of Minutes Spent Total Time Spent with Patient: Total time spent is greater than 50% in coordination of care (as documented) at patient's floor/unit and/or counseling patient: Coding Level of Care Code 09421 Subseq Hosp Care Lvl 3 Diagnoses Chest pain R07.9 Chest pain type: unspecified CAD (coronary artery disease) I25.10 HTN (hypertension) I10 Hypertension type: unspecified Dyslipidemia E78.5 (1) Chest pain Chest pain type: unspecified Qualified Code(s): R07.9 - Chest pain, unspecified (2) HTN (hypertension) Hypertension type: unspecified Qualified Code(s): I10 - Essential (primary) hypertension
[2020-03-14] MEDS ORDERED: ATORVASTATIN 40 MG TAB PO SCH (09:00)
--- NOTE | 2020-03-15 13:26 | Electrocardiogram Report ---
Test Reason : Blood Pressure : / mmHG Vent. Rate : 056 BPM Atrial Rate : 056 BPM P-R Int : 190 ms QRS Dur : 116 ms QT Int : 414 ms P-R-T Axes : 066 -12 049 degrees QTc Int : 399 ms Sinus bradycardia with sinus arrhythmia Minimal voltage criteria for LVH, may be normal variant ( [place] product ) Borderline ECG When compared with ECG of 12-MAR-2020 09:27, No significant change was found Confirmed by Gabriel Mario ([id number]) on 03/15/2020 1:26:01 PM Referred By: REFERRED SELF Confirmed By:Gabriel Mario
== END 2020-03-13 18:15 | disposition home health service (06) | DRG 281 ==
LOC: ED 16:53 → SUATTDRO 19:41 → 1E 19:41

== ENCOUNTER 2020-12-08 14:48 | Inpatient (IN) ==
--- NOTE | 2020-12-08 18:02 | Emergency Department Note ---
History of Present Illness General Chief complaint: Chest Pain Stated complaint: CHEST PAIN Time Seen by Provider: 12/08/20 17:43 History of Present Illness Maximum Pain Intensity: 5 85-year-old female presents with a chief complaint of chest discomfort. The patient has had chest discomfort intermittently since , the past 3 days. The son help with the history. The patient states that her chest pain was very faint and sometimes in the retrosternal area and sometimes on the left. She denied any associated symptoms such as shortness of breath, palpitations, lightheadedness or dizziness. She did not have any nausea or diaphoresis. The patient denies having any symptoms right now. Her symptoms do not seem to be exertion related. No additional complaints at this time. The patient son did report that he checked her blood pressure at home and it was elevated around 170 systolic or so. She does report a history of hypertension. She states that she has been taking all of her meds. Home Medications Medication Instructions Recorded Confirmed Type clopidogrel 75 mg tablet 75 mg PO QAM #30 tab 01/06/18 05/23/20 Rx lisinopril 20 2 tab PO HS 09/15/18 05/23/20 History mg-hydrochlorothiazide 12.5 mg tablet atorvastatin 40 mg tablet (Lipitor) 40 mg PO QAM 12/22/18 05/23/20 History amlodipine 2.5 mg tablet 2.5 mg PO DAILY 03/11/20 05/23/20 History levothyroxine 137 mcg tablet 137 mcg PO DAILY 03/11/20 05/23/20 History nitroglycerin 0.4 mg sublingual 0.4 mg SUBLINGUAL UD PRN #14 tab 03/13/20 05/23/20 Rx tablet (Nitrostat) aspirin 81 mg tablet,delayed 81 mg PO QAM 05/23/20 05/23/20 History release isosorbide mononitrate 30 mg 30 mg PO QAM 05/23/20 05/23/20 History tablet,extended release 24 hr metoprolol succinate 50 mg 50 mg PO QAM 05/23/20 05/23/20 History tablet,extended release 24 hr Allergies Allergy/AdvReac Type Severity Reaction Status Date / Time cefpodoxime [From Vantin] Allergy Unknown Unknown Verified 05/23/20 20:55 Sulfa (Sulfonamide Allergy Unknown Unknown Verified 05/23/20 20:55 Antibiotics) Past Med/Surg History Medical History Chest pain Diabetes History of CVA with residual deficit HTN (hypertension) Hypertension Osteoarthritis of right knee Surgical History History of cataract surgery Family History Mother , age 69 with heart disease No problems noted. Father No problems noted. 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 Beliefs That Will Affect Care: None marital status: / Current Living Situation: Family Current Living Situation Comment: Temporarly living with Daughter Taylor Feels Safe at Home: Yes Assistive Devices: Walker Review of Systems A total of 10 systems reviewed and were otherwise negative Physical Exam Vital Signs Vital Signs - 24 hr 12/08/20 15:00 12/08/20 18:00 12/08/20 18:30 Temperature 36.6 C Temperature Source Temporal Artery Scan Pulse Rate 50 L 57 L 49 L Pulse Rate from SpO2 Sensor 49 L Respiratory Rate 20 17 18 Blood Pressure 122/63 191/74 H 178/69 H Blood Pressure Mean 82 113 105 Pulse Oximetry 99 100 99 Oxygen Delivery Method Room Air Room Air Sepsis Recent Fever Within 48 Hours No Sepsis New/Unexplained Change in Mental Status No Sepsis Action Taken by Nursing No Action Required CONSTITUTIONAL/VITAL SIGNS: Reviewed / noted above. GENERAL: Non-toxic in appearance. INTEGUMENTARY: Warm, dry, and [place]. HEAD: Normocephalic. EYES: without scleral icterus or trauma. ENT/OROPHARYNX: clear and moist. LYMPHADENOPATHY/NECK: Is supple without lymphadenopathy or meningismus. RESPIRATORY: Clear to auscultation bilaterally. No increased work of breathing. CARDIOVASCULAR: Regular rate and rhythm. GI/ABDOMEN: Soft and nontender. No organomegaly or pulsatile mass. EXTREMITIES: Warm and well perfused. BACK: No CVA tenderness. NEUROLOGICAL: Intact without focal deficits. PSYCHIATRIC: normal affect. MUSCULOSKELETAL: Normally developed with good muscle tone. TRIAGE NURSING DOCUMENTATION REVIEWED. Medical Decision Making Medical Records Attestation: I reviewed the patient's medical records. Home Medications Current Medication List: was personally reviewed by me Laboratory Data Attestation: I reviewed the patient's lab results. Result diagrams: 12/08/20 18:00 12/08/20 18:00 Lab Results 12/08/20 12/08/20 12/08/20 Range/Units 18:00 18:00 18:00 WBC 6.54 (4.8-10.8) K/uL RBC 4.22 (4.2-5.4) M/uL Hgb 12.1 (12.0-16.0) g/dL Hct 37.5 (37-47) % MCV 88.9 (80-100) fL MCH 28.7 (25-34) pg MCHC 32.3 (32-36) g/dL RDW Std Deviation 44.4 (36.4-46.3) fL RDW Coeff of Michaela 13.6 (11.5-14.5) % Plt Count 261 (130-400) K/uL MPV 10.2 (7.4-10.4) fL Immature Gran % (Auto) 0.3 % Neut % (Auto) 59.5 % Lymph % (Auto) 25.2 % Emanuel % (Auto) 11.6 % Eos % (Auto) 2.9 % Baso % (Auto) 0.5 % Neut # (Auto) 3.89 (1.4-6.5) K/uL Lymph # (Auto) 1.65 (1.2-3.4) K/uL Emanuel # (Auto) 0.76 H (0.11-0.59) K/uL Eos # (Auto) 0.19 (0-0.5) K/uL Baso # (Auto) 0.03 (0-0.2) K/uL Immature Gran # (Auto) 0.02 (0.00-0.02) K/uL APTT 23.9 (21.0-31.0) Seconds PTT Ratio 0.9 Sodium 142 (136-145) mmol/L Potassium 3.7 (3.5-5.1) mmol/L Chloride 110 H (98-107) mmol/L Carbon Dioxide 27 (21-32) mmol/L Anion Gap 5.0 (3-11) BUN 22 H (7-18) mg/dl Creatinine 1.12 (0.6-1.2) mg/dl Est Cr Clr Drug Dosing Not Reportable Est GFR ( Amer) 51.5 ml/min Est GFR (Non-Af Amer) 44.4 ml/min BUN/Creatinine Ratio 19.2 (10-20) Glucose 96 (70-99) mg/dl Calcium 9.2 (8.5-10.1) mg/dl Total Bilirubin 0.7 (0.2-1) mg/dl AST 18 (15-37) U/L ALT 21 (12-78) U/L Alkaline Phosphatase 67 (45-117) U/L Troponin I 0.076 H* (0-0.045) ng/ml Total Protein 7.9 (6.4-8.2) gm/dl Albumin 3.9 (3.4-5.0) gm/dl Globulin 4.0 (2.5-4.0) gm/dl Albumin/Globulin Ratio 1.0 (0.9-2) Lipase 221 (73-393) U/L Imaging Data Radiologist's Impression: Chest X-Ray 12/08/20 17:43 SINGLE VIEW CHEST CLINICAL HISTORY: Atypical chest pain. FINDINGS: An AP, portable, upright chest radiograph is compared to study dated 05/23/2020. The examination is degraded by portable technique and patient rotation. The heart is enlarged noting atherosclerotic calcification of the thoracic aorta. The pulmonary vasculature is noncongested. Chronic interstitial thickening is similar to previous. Scarring/atelectasis is noted at the lung bases. No airspace consolidation or large pleural effusion is identified. No pneumothorax is seen. The skeletal structures are osteopenic. The bony thorax is grossly intact. IMPRESSION: Cardiomegaly with no acute cardiopulmonary abnormality. ACT 112: Negative or not required by law. Electronically signed by: Carlos Atwood M.D. 12/08/2020 7:12 PM ECG Data Attestation: I personally reviewed and interpreted this ECG as follows: Additional Comments: Twelve-lead EKG: Per my interpretation there is a sinus bradycardia rate of 52. No ST elevation. No PVCs. Normal QTC. MDM Narrative 85-year-old female presents with a chief complaint of chest discomfort as detailed above. Twelve-lead EKG did not show any ischemic changes. Patient is currently not having pain. Vital signs are normal. The CBC and chemistry panel was unremarkable. Troponin was elevated at 0.076. The patient is currently not having any chest discomfort. A chest x-ray showed cardiomegaly. The patient was given aspirin p.o. She does chronically take a baby aspirin as well as Plavix. She is also chronically on IV isosorbide mononitrate. She will be seen by the hospitalist for further inpatient evaluation and care. Impression & Plan Elevated troponin, Retrosternal chest pain, Non-ST elevation (NSTEMI) myocardial infarction Discharge Plan Visit Data Chief Complaint: Chest Pain Stated Complaint: CHEST PAIN ED Provider: Charlie Pretty Discharge Problem: Elevated troponin, Retrosternal chest pain, Non-ST elevation (NSTEMI) myocardial infarction Patient Disposition: Being Evaluated by Hospitalist Forms Stand Alone Forms: [facility] Prescriptions Prescriptions: No Action clopidogrel 75 mg Tablet 75 mg PO QAM Qty: 30 RF: 3 atorvastatin [Lipitor] 40 mg tablet 40 mg PO QAM RF: 0 lisinopril-hydrochlorothiazide 20-12.5 mg Tablet 2 tab PO HS RF: 0 levothyroxine 137 mcg tablet 137 mcg PO DAILY RF: 0 amlodipine 2.5 mg tablet 2.5 mg PO DAILY RF: 0 nitroglycerin [Nitrostat] 0.4 mg Tablet, Sublingual 0.4 mg sublingual UD PRN (Reason: chest pain) Qty: 14 RF: 0 metoprolol succinate 50 mg tablet extended release 24 hr 50 mg PO QAM RF: 0 isosorbide mononitrate 30 mg tablet extended release 24 hr 30 mg PO QAM RF: 0 aspirin 81 mg tablet,delayed release (DR/EC) 81 mg PO QAM RF: 0 Referrals Referrals: Jaguar Kelly [Primary Care Provider] -
[2020-12-08 18:21] LABS: Basophils # (auto) 0.03 K/uL (0-0.2); Basophils % (auto) 0.5 %; Eosinophils # (auto) 0.19 K/uL (0-0.5); Eosinophils % (auto) 2.9 %; Hematocrit (blood only) 37.5 % (37-47); Hemoglobin 12.1 g/dL (12.0-16.0); Immature Granulocytes # (auto) 0.02 K/uL (0.00-0.02); Immature Granulocytes % (auto) 0.3 %; Lymphocytes # (auto) 1.65 K/uL (1.2-3.4); Lymphocytes % (auto) 25.2 %; Mean Corpuscular Hemoglobin 28.7 pg (25-34); Mean Corpuscular Hgb Conc 32.3 g/dL (32-36); Mean Corpuscular Volume 88.9 fL (80-100); Mean Platelet Volume 10.2 fL (7.4-10.4); Monocytes # (auto) 0.76 K/uL (0.11-0.59); Monocytes % (auto) 11.6 %; Neutrophils # (auto) 3.89 K/uL (1.4-6.5); Neutrophils % (auto) 59.5 %; Platelet Count 261 K/uL (130-400); RDW Coefficient of Variation 13.6 % (11.5-14.5); RDW Standard Deviation 44.4 fL (36.4-46.3); Red Blood Count 4.22 M/uL (4.2-5.4); White Blood Count 6.54 K/uL (4.8-10.8)
[2020-12-08 18:33] LABS: Partial Thromboplastin Ratio 0.9; Partial Thromboplastin Time 23.9 Seconds (21.0-31.0)
[2020-12-08 18:41] LABS: Alanine Aminotransferase 21 U/L (12-78); Albumin Level 3.9 gm/dl (3.4-5.0); Aspartate Aminotransferase 18 U/L (15-37); BUN Creatinine Ratio 19.2 (10-20); Blood Urea Nitrogen 22 mg/dl (7-18); Calcium 9.2 mg/dl (8.5-10.1); Carbon Dioxide 27 mmol/L (21-32); Chloride 110 mmol/L (98-107); Est GFR (African American) 51.5 ml/min; Est GFR (Non-African American) 44.4 ml/min; Glucose 96 mg/dl (70-99); Lipase 221 U/L (73-393); Potassium 3.7 mmol/L (3.5-5.1); Sodium 142 mmol/L (136-145)
[2020-12-08 18:57] LABS: Alkaline Phosphatase 67 U/L (45-117); Bilirubin,Total 0.7 mg/dl (0.2-1); Total Protein 7.9 gm/dl (6.4-8.2); Troponin I 0.076 ng/ml (0-0.045)
--- NOTE | 2020-12-08 19:13 | XRay Report ---
SINGLE VIEW CHEST CLINICAL HISTORY: Atypical chest pain. FINDINGS: An AP, portable, upright chest radiograph is compared to study dated 05/23/2020. The examina tion is degraded by portable technique and patient rotation. The heart is enlarged noting atheroscler otic calcification of the thoracic aorta. The pulmonary vasculature is noncongested. Chronic intersti tial thickening is similar to previous. Scarring/atelectasis is noted at the lung bases. No airspace consolidation or large pleural effusion is identified. No pneumothorax is seen. The skeletal structur es are osteopenic. The bony thorax is grossly intact. IMPRESSION: Cardiomegaly with no acute cardiopulmonary abnormality. ACT 112: Negative or not required by law. Electronically signed by: Carlos Atwood M.D. 12/08/2020 7:12 PM
[2020-12-08] MEDS ORDERED: ASPIRIN CHEW 324 MG PO STA (19:27)
--- NOTE | 2020-12-08 20:18 | History & Physical Report ---
Date of Service December 08, 2020 Assessment & Plan (1) Elevated troponin: Plan: Patient with known CAD presenting with atypical chest pain. Elevated troponin today at 0.076. Troponin is chronically elevated. Presently chest pain free. No acute changes on EKG. -Telemetry monitoring -Trend troponin -Continue ASA, Plavix, Atorvastatin, Metoprolol, Lisinopril and Isosorbide (2) CAD (coronary artery disease): Plan: Patient with CAD. Prior NSTEMI. Follows with Cardiology. Last cardiac catheterization on 03/12/20 with mild nonobstructive CAD, 40% mid LAD, 30% ostial D2 and 30% ostial/proximal RCA. Normal filling pressures. Echo on 03/12/20 with normal LV size and function with EF of 50-55%, mild concentric LVH and aortic valve sclerosis without stenosis -Continue ASA, Plavix, Atorvastatin, Metoprolol, Lisinopril (3) Hypertension: Plan: Blood pressure elevated -Continue Amlodipine, Isosorbide, Lisinopril/HCTZ and Metoprolol -Continue to monitor (4) Diabetes: Plan: Diet controlled -Continue to monitor Plan: F/E/N - Heplock. Electrolytes WNL. AHA diet as tolerated Ppx - Lovenox 30 Code - Full Dispo - Observation to medical with telemetry. History of Present Illness Chief Complaint: Chest discomfort Primary Care Provider: Jaguar Kelly Mae Contreras is an 85yo female presenting from home with chest discomfort. Son reports that patient has been experiencing some substernal and left sided chest discomfort over the last 3 days. Discomfort is intermittent, non- positional, non-exertional and non-pleuritic. Patient has had history of atypical chest pain in the past. She follows with Cardiology. Presently on Metoprolol and Isosorbide. Patient states she has not been having any chest pain. Presently with no complaints ER Course: ASA 324mg Allergies Allergy/AdvReac Type Severity Reaction Status Date / Time cefpodoxime [From Vantin] Allergy Unknown Unknown Verified 05/23/20 20:55 Sulfa (Sulfonamide Allergy Unknown Unknown Verified 05/23/20 20:55 Antibiotics) Home Medications Medication Instructions Recorded Confirmed Type clopidogrel 75 mg tablet 75 mg PO QAM #30 tab 01/06/18 05/23/20 Rx lisinopril 20 2 tab PO HS 09/15/18 05/23/20 History mg-hydrochlorothiazide 12.5 mg tablet atorvastatin 40 mg tablet (Lipitor) 40 mg PO QAM 12/22/18 05/23/20 History amlodipine 2.5 mg tablet 2.5 mg PO DAILY 03/11/20 05/23/20 History levothyroxine 137 mcg tablet 137 mcg PO DAILY 03/11/20 05/23/20 History nitroglycerin 0.4 mg sublingual 0.4 mg SUBLINGUAL UD PRN #14 tab 03/13/20 05/23/20 Rx tablet (Nitrostat) aspirin 81 mg tablet,delayed 81 mg PO QAM 05/23/20 05/23/20 History release isosorbide mononitrate 30 mg 30 mg PO QAM 05/23/20 05/23/20 History tablet,extended release 24 hr metoprolol succinate 50 mg 50 mg PO QAM 05/23/20 05/23/20 History tablet,extended release 24 hr Past Med/Surg History Medical History (Updated 12/08/20 @ 20:29 by Faiza Sheffield DO) Chest pain Diabetes History of CVA with residual deficit HTN (hypertension) Hypertension Osteoarthritis of right knee Surgical History History of cataract surgery Family History Mother , age 69 with heart disease No problems noted. Father No problems noted. Other Family history non-contributory Social History Smoking Status: Never smoker Second Hand Exposure: Yes; Hx Alcohol Use: Yes Alcohol type: beer Hx Substance Use: No Preferred Language: Latvian Communication Ability: Effective Liberal Arts Teacher Required: No Beliefs That Will Affect Care: None marital status: / Current Living Situation: Family Current Living Situation Comment: Temporarly living with Daughter Taylor Feels Safe at Home: Yes Assistive Devices: Walker Review of Systems Review of Systems: All systems reviewed & are unremarkable except as noted in HPI & below Physical Exam Physical Exam: General: patient resting comfortably, NAD, non-toxic in appearance, AA&O x 4 Skin: warm, dry, intact, no rashes or lesions HEENT: NC/AT, PERRL, EOMI, anicteric sclera, conjunctiva without injection, external ear normal to inspection and nontender, nares patent, moist mucus membranes, dentition intact, no oropharyngeal lesions, neck supple, trachea midline, no LAD, no thyromegaly, no JVD Heart: +S1/S2, regular, 3/6 LYNDON at LSB Lungs: equal air entry bilaterally, no rales/rhonchi/wheezes Abd: +BS, soft, NT/ND, no masses/organomegaly/ascites Ext: warm, 2+ pulses in UE/LE bilaterally, no clubbing/cyanosis or edema Neuro: nonfocal, patient AA&O x 4, speech intact, no facial droop, moving all extremities on command with equal strength 5/5 Results & Data Results & Data ([facility]) Vital Signs (Past 12 Hours) Vital Signs Temp Pulse Resp BP Pulse Ox 12/08/20 18:30 49 L 18 178/69 H 99 12/08/20 18:00 57 L 17 191/74 H 100 12/08/20 15:00 36.6 C 50 L 20 122/63 99 Laboratory Results Laboratory Results WBC 6.54 K/uL (4.8-10.8) 12/08/20 18:00 RBC 4.22 M/uL (4.2-5.4) 12/08/20 18:00 Hgb 12.1 g/dL (12.0-16.0) 12/08/20 18:00 Hct 37.5 % (37-47) 12/08/20 18:00 MCV 88.9 fL (80-100) 12/08/20 18:00 MCH 28.7 pg (25-34) 12/08/20 18:00 MCHC 32.3 g/dL (32-36) 12/08/20 18:00 RDW Std Deviation 44.4 fL (36.4-46.3) 12/08/20 18:00 RDW Coeff of Michaela 13.6 % (11.5-14.5) 12/08/20 18:00 Plt Count 261 K/uL (130-400) 12/08/20 18:00 MPV 10.2 fL (7.4-10.4) 12/08/20 18:00 Immature Gran % (Auto) 0.3 % 12/08/20 18:00 Neut % (Auto) 59.5 % 12/08/20 18:00 Lymph % (Auto) 25.2 % 12/08/20 18:00 Moore % (Auto) 11.6 % 12/08/20 18:00 Eos % (Auto) 2.9 % 12/08/20 18:00 Baso % (Auto) 0.5 % 12/08/20 18:00 Neut # (Auto) 3.89 K/uL (1.4-6.5) 12/08/20 18:00 Lymph # (Auto) 1.65 K/uL (1.2-3.4) 12/08/20 18:00 Moore # (Auto) 0.76 K/uL (0.11-0.59) H 12/08/20 18:00 Eos # (Auto) 0.19 K/uL (0-0.5) 12/08/20 18:00 Baso # (Auto) 0.03 K/uL (0-0.2) 12/08/20 18:00 Immature Gran # (Auto) 0.02 K/uL (0.00-0.02) 12/08/20 18:00 APTT 23.9 Seconds (21.0-31.0) 12/08/20 18:00 PTT Ratio 0.9 12/08/20 18:00 Sodium 142 mmol/L (136-145) 12/08/20 18:00 Potassium 3.7 mmol/L (3.5-5.1) 12/08/20 18:00 Chloride 110 mmol/L (98-107) H 12/08/20 18:00 Carbon Dioxide 27 mmol/L (21-32) 12/08/20 18:00 Anion Gap 5.0 (3-11) 12/08/20 18:00 BUN 22 mg/dl (7-18) H 12/08/20 18:00 Creatinine 1.12 mg/dl (0.6-1.2) 12/08/20 18:00 Est Cr Clr Drug Dosing Not Reportable 12/08/20 18:00 Est GFR ( Amer) 51.5 ml/min 12/08/20 18:00 Est GFR (Non-Af Amer) 44.4 ml/min 12/08/20 18:00 BUN/Creatinine Ratio 19.2 (10-20) 12/08/20 18:00 Glucose 96 mg/dl (70-99) 12/08/20 18:00 Calcium 9.2 mg/dl (8.5-10.1) 12/08/20 18:00 Total Bilirubin 0.7 mg/dl (0.2-1) 12/08/20 18:00 AST 18 U/L (15-37) 12/08/20 18:00 ALT 21 U/L (12-78) 12/08/20 18:00 Alkaline Phosphatase 67 U/L (45-117) 12/08/20 18:00 Troponin I 0.076 ng/ml (0-0.045) H* 12/08/20 18:00 Total Protein 7.9 gm/dl (6.4-8.2) 12/08/20 18:00 Albumin 3.9 gm/dl (3.4-5.0) 12/08/20 18:00 Globulin 4.0 gm/dl (2.5-4.0) 12/08/20 18:00 Albumin/Globulin Ratio 1.0 (0.9-2) 12/08/20 18:00 Lipase 221 U/L (73-393) 12/08/20 18:00 Impressions Chest X-Ray 12/08/20 17:43 SINGLE VIEW CHEST CLINICAL HISTORY: Atypical chest pain. FINDINGS: An AP, portable, upright chest radiograph is compared to study dated 05/23/2020. The examination is degraded by portable technique and patient rotation. The heart is enlarged noting atherosclerotic calcification of the thoracic aorta. The pulmonary vasculature is noncongested. Chronic interstitial thickening is similar to previous. Scarring/atelectasis is noted at the lung bases. No airspace consolidation or large pleural effusion is identified. No pneumothorax is seen. The skeletal structures are osteopenic. The bony thorax is grossly intact. IMPRESSION: Cardiomegaly with no acute cardiopulmonary abnormality. ACT 112: Negative or not required by law. Electronically signed by: Carlos Atwood M.D. 12/08/2020 7:12 PM ECG Additional Comments: EKG with SB at 52, left axis deviation, no acute ischemic changes Code Status & VTE Plan VTE Prophylaxis Plan VTE Prophylaxis will be ordered: Yes PG Care Time/CCT Total # of Minutes Spent Total Time Spent with Patient: Total time spent is greater than 50% in coordination of care (as documented) at patient's floor/unit and/or counseling patient: Coding Level of Care Code INT OBSERVATION CARE 50M LVL 2 Diagnoses Elevated troponin R77.8 Hypertension I10 CAD (coronary artery disease) I25.10 Diabetes E11.9
[2020-12-08] MEDS: ENOXAPARIN INJ 30 MG/0.3 ML SYR SQ SCH (23:19)
[2020-12-09] MEDS: LEVOTHYROXINE SODIUM 137 MCG TABLET PO SCH (06:05)
[2020-12-09] MEDS: ISOSORBIDE MONO EXTENDED REL 30 MG TABCR PO SCH (08:59)
[2020-12-09] MEDS: ATORVASTATIN 40 MG TAB PO SCH (08:59)
[2020-12-09] MEDS: ESCITALOPRAM OXALATE 10 MG TAB PO SCH (08:59)
[2020-12-09] MEDS: ASPIRIN 81 MG ECTAB PO SCH (08:59)
[2020-12-09] MEDS: CLOPIDOGREL BISULFATE 75 MG TAB PO SCH (08:59)
[2020-12-09] MEDS: amLODIPine BESYLATE 5 MG TAB PO SCH (09:00)
[2020-12-09] MEDS: METOPROLOL SUCC 50MG EXT REL TAB PO SCH (09:00)
--- NOTE | 2020-12-09 13:36 | Hospitalist Progress Note ---
Date of Service December 09, 2020 Assessment & Plan (1) Confusion: Plan: ?Slightly off baseline due to recent psychological trauma of her close cousin dying. UA pending - will get straight cath sample as previous last three samples have all been mixed growth. No specific symptoms of UTI however she has presented with similar confusion in the past. Likely environment of the hospital also not helping Family unable to take care of her at home at the present time but possible able to arrange more care at home tomorrow. (2) Elevated troponin: Plan: Patient with known CAD presenting with atypical chest pain. Elevated troponin today at 0.076. Troponin is chronically elevated. Presently chest pain free. No acute changes on EKG. -No arrhythmias on telemetry - ok to transfer to med/surg -Troponin trend stable. Do not suspect NSTEMI especially given pain is reproducible and non obstructive disease on catheterization earlier this year. -Continue ASA, Plavix, Atorvastatin, Metoprolol, Lisinopril and Isosorbide (3) CAD (coronary artery disease): Plan: Patient with CAD. Prior NSTEMI. Follows with Cardiology. Last cardiac c atheterization on 03/12/20 with mild nonobstructive CAD, 40% mid LAD, 30% ostial D2 and 30% ostial/proximal RCA. Normal filling pressures. Echo on 03/12/20 with normal LV size and function with EF of 50-55%, mild concentric LVH and aortic valve sclerosis without stenosis -Continue ASA, Plavix, Atorvastatin, Metoprolol, Lisinopril (4) Hypertension: Plan: Blood pressure elevated. Missed lisinopril/HCTZ last night. Will continue her regular meds for now. -Continue Amlodipine, Isosorbide, Lisinopril/HCTZ and Metoprolol -Continue to monitor (5) Diabetes: Plan: Diet controlled -Continue to monitor Plan: F/E/N - Heplock. Electrolytes WNL. AHA diet as tolerated Ppx - Lovenox 30 Code - Full Dispo - Transfer to med/surg Admission and Anticipated Discharge Date Admission Date: December 08, 2020 Subjective Difficult to get history from patient. She reports ongoing chest pain in the center of her chest, worst on palpation. She is aware she is in hospital but confused with the chain of events. Dicussed with her daughter over the phone. Patient lives with her son but he is not there all the time. They are in the process of getting more help at home. Sat watching [place] state pain in left breast instead of chest. When she pushed it was in the breast itself. Changed when it changed positions or Lost first cousin on . Missed several blood pressure medications earlier this week. Found at least 6-7 doses. Short term memory loss At home with brother Medicaid waiver. Hoping for additional care. Review of Systems Review of Systems: All systems reviewed & are unremarkable except as noted in HPI & below Physical Exam Constitutional: WD/WN, vitals as above Eyes: PERRL, conjunctivae normal, anicteric sclerae ENMT: Mouth: oral mucous membranes not dry Respiratory: normal respiratory effort, lungs clear to auscultation Cardiovascular: Rate/Rhythm: regular rate and regular rhythm Heart Sounds: + murmur (3/6 LUSB) Vessels: no JVD Extremities: normal capillary refill; no calf tenderness and no pedal edema Chest (Breasts): Chest: normal inspection of chest (Quarter sized bruise on left lateral chest) Additional Comments: Pain on palpation of center of her chest Gastrointestinal (Abdomen): normal bowel sounds, soft, nontender, no hepatosplenomegaly Musculoskeletal: no cyanosis or clubbing, extremities motor strength 5/5 Skin: no rashes, warm and dry Neurologic: moves all extremities, awake and + confused (thinks her is still alive for example, gets confused easily) Psychiatric: Orientation: alert, oriented to person, oriented to place and oriented to time (year only) Genitourinary: no CVA tenderness Results & Data Results & Data ([facility]) Vital Signs (Past 12 Hours) Vital Signs Temp Pulse Resp BP Pulse Ox 12/09/20 08:00 37 C 70 18 210/76 H 96 PG Care Time/CCT Total # of Minutes Spent Total Time Spent with Patient: Total time spent is greater than 50% in coordination of care (as documented) at patient's floor/unit and/or counseling patient: Coding Level of Care Code 23664 Subseq Obs Care Lvl 2 Diagnoses Elevated troponin R77.8 CAD (coronary artery disease) I25.10 Hypertension I10 Diabetes E11.9 Confusion R41.0
--- NOTE | 2020-12-09 14:03 | Electrocardiogram Report ---
Test Reason : Blood Pressure : / mmHG Vent. Rate : 052 BPM Atrial Rate : 052 BPM P-R Int : 200 ms QRS Dur : 114 ms QT Int : 440 ms P-R-T Axes : 076 -41 062 degrees QTc Int : 409 ms Sinus bradycardia Left axis deviation Abnormal ECG When compared with ECG of 23-MAY-2020 18:31, No significant change was found Confirmed by Kojo Mallory ([id number]) on 12/09/2020 2:03:04 PM Referred By: REFERRED SELF Confirmed By:Kojo Mallory
[2020-12-09 15:16] LABS: Appearance Urine Clear (Clear); Bacteria Urine Automated 4+ (Negative); Bilirubin Urine Negative (Negative); Blood Urine 3+ (Negative); Color Urine Dark Yellow; Epithelial Cell Urine Auto 0-5 /lpf (0-5); Glucose Urine UA Negative (Negative); Ketones Urine Trace (Negative); Leukocyte Esterase Urine Trace (Negative); Nitrite Urine Positive (Negative); Protein Urine 3+ (Negative); Specific Gravity Urine 1.022 (1.000-1.030); Urobilinogen Urine Negative (Negative); pH Urine 5.5 (4.5-7.5)
[2020-12-09] MEDS ORDERED: LORazepam 1 MG/2 ML VIAL IV STA (19:59)
[2020-12-09] MEDS: ENOXAPARIN INJ 30 MG/0.3 ML SYR SQ SCH (21:59)
[2020-12-09] MEDS: LISINOPRIL/HCTZ 20/12.5MG 1 TAB TAB PO SCH (21:59)
[2020-12-10] MEDS: LEVOTHYROXINE SODIUM 137 MCG TABLET PO SCH (06:30)
[2020-12-10] MEDS: ASPIRIN 81 MG ECTAB PO SCH (08:47)
[2020-12-10] MEDS: ATORVASTATIN 40 MG TAB PO SCH (08:48)
[2020-12-10] MEDS: METOPROLOL SUCC 50MG EXT REL TAB PO SCH (08:49)
[2020-12-10] MEDS: ISOSORBIDE MONO EXTENDED REL 30 MG TABCR PO SCH (08:49)
[2020-12-10] MEDS: CLOPIDOGREL BISULFATE 75 MG TAB PO SCH (08:49)
[2020-12-10] MEDS: amLODIPine BESYLATE 5 MG TAB PO SCH (08:50)
[2020-12-10] MEDS: ESCITALOPRAM OXALATE 10 MG TAB PO SCH (08:50)
[2020-12-10] MEDS: cefTRIAXone SODIUM 1,000 MG in DEXTROSE 5% 50 ML IV SCH (10:57)
--- NOTE | 2020-12-10 19:04 | Hospitalist Progress Note ---
Date of Service December 10, 2020 Assessment & Plan (1) Confusion: Plan: Unclear how much UTI contributing but worthwhile treating in case somewhat reversible. Clear sundowning last night and has already started around 5pm today. Use Zyprexa PO/IM for delirium. Seroquel HS PRN if delirious and she needs help with insomnia. Tried re-orientation with the patient which was somewhat successful around 5pm but clearly more confused than she was earlier in the day. Medically stable pending placement (2) UTI (urinary tract infection): Plan: Urine culture - E. Coli, awaiting sensitivities Started on ceftriaxone 12/10 (3) Elevated troponin: Plan: Patient with known CAD presenting with atypical chest pain. Elevated troponin today at 0.076. Troponin is chronically elevated. Presently chest pain free. No acute changes on EKG. -No arrhythmias on telemetry - ok to transfer to med/surg -Troponin trend stable. Do not suspect NSTEMI especially given pain is reproducible and non obstructive disease on catheterization earlier this year. -Continue ASA, Plavix, Atorvastatin, Metoprolol, Lisinopril and Isosorbide (4) CAD (coronary artery disease): Plan: Patient with CAD. Prior NSTEMI. Follows with Cardiology. Last cardiac catheterization on 03/12/20 with mild nonobstructive CAD, 40% mid LAD, 30% ostial D2 and 30% ostial/proximal RCA. Normal filling pressures. Echo on 03/12/20 with normal LV size and function with EF of 50-55%, mild concentric LVH and aortic valve sclerosis without stenosis -Continue ASA, Plavix, Atorvastatin, Metoprolol, Lisinopril (5) Hypertension: Plan: Blood pressure elevated. Missed lisinopril/HCTZ last night. Will continue her regular meds for now. -Continue Amlodipine, Isosorbide, Lisinopril/HCTZ and Metoprolol -Continue to monitor (6) Diabetes: Plan: Diet controlled -Continue to monitor Plan: F/E/N - Heplock. Electrolytes WNL. AHA diet as tolerated Ppx - Lovenox 30 Code - Full Dispo - Medically stable for discharge pending placement Admission and Anticipated Discharge Date Admission Date: December 10, 2020 Subjective Required lorazepam overnight due to agitation and aggression. No current chest pain or shortness of breath. Patient aware she is in hospital but thinks year is 192. PT recommending 21/09 care. Discussed with her daughter and referrals sent to SNFs Review of Systems Review of Systems: All systems reviewed & are unremarkable except as noted in HPI & below Physical Exam Constitutional: WD/WN, vitals as above Eyes: PERRL, conjunctivae normal, anicteric sclerae ENMT: Mouth: oral mucous membranes not dry Respiratory: normal respiratory effort, lungs clear to auscultation Cardiovascular: Rate/Rhythm: regular rate and regular rhythm Heart Sounds: + murmur (3/6 LUSB) Extremities: normal capillary refill; no calf tenderness and no pedal edema Gastrointestinal (Abdomen): normal bowel sounds, soft, nontender, no hepatosplenomegaly Skin: no rashes, warm and dry Neurologic: moves all extremities, awake and + confused (thinks her is still alive for example, gets confused easily) Psychiatric: Orientation: alert, oriented to person and oriented to place; + not oriented to time Results & Data Results & Data ([facility]) Vital Signs (Past 12 Hours) Vital Signs Temp Pulse Resp BP Pulse Ox 12/10/20 14:46 36.8 C 76 22 110/70 96 PG Care Time/CCT Total # of Minutes Spent Total Time Spent with Patient: Total time spent is greater than 50% in coordination of care (as documented) at patient's floor/unit and/or counseling patient: Coding Level of Care Code 01637 Subseq Hosp Care Lvl 2 Diagnoses Confusion R41.0 Elevated troponin R77.8 CAD (coronary artery disease) I25.10 Hypertension I10 Diabetes E11.9 UTI (urinary tract infection) N39.0 Hematuria presence: without hematuria Urinary tract infection type: site unspecified (1) UTI (urinary tract infection) Hematuria presence: without hematuria Urinary tract infection type: site unspecified Qualified Code(s): N39.0 - Urinary tract infection, site not specified
[2020-12-10] MEDS: OLANZAPINE 2.5 MG TAB PO PRN (22:06)
[2020-12-10] MEDS: ENOXAPARIN INJ 30 MG/0.3 ML SYR SQ SCH (22:06)
[2020-12-10] MEDS: QUEtiapine FUMARATE 25 MG TABLET PO PRN (22:06)
[2020-12-10] MEDS: LISINOPRIL/HCTZ 20/12.5MG 1 TAB TAB PO SCH (22:07)
[2020-12-11] MEDS: LEVOTHYROXINE SODIUM 137 MCG TABLET PO SCH (06:42)
[2020-12-11] MEDS: ASPIRIN 81 MG ECTAB PO SCH (09:54)
[2020-12-11] MEDS: cefTRIAXone SODIUM 1,000 MG in DEXTROSE 5% 50 ML IV SCH (09:54)
[2020-12-11] MEDS: amLODIPine BESYLATE 5 MG TAB PO SCH (09:55)
[2020-12-11] MEDS: ISOSORBIDE MONO EXTENDED REL 30 MG TABCR PO SCH (09:55)
[2020-12-11] MEDS: METOPROLOL SUCC 50MG EXT REL TAB PO SCH (09:55)
[2020-12-11] MEDS: ESCITALOPRAM OXALATE 10 MG TAB PO SCH (09:56)
[2020-12-11] MEDS: ATORVASTATIN 40 MG TAB PO SCH (09:56)
[2020-12-11] MEDS: CLOPIDOGREL BISULFATE 75 MG TAB PO SCH (12:52)
--- NOTE | 2020-12-11 14:13 | Hospitalist Progress Note ---
Date of Service December 11, 2020 Assessment & Plan (1) Confusion: Plan: Unclear how much UTI contributing but worthwhile treating in case somewhat reversible. Improved sundowning and sleep on Seroquel but would still recommend just PRN as may improve with UTI treatment Medically stable pending placement (2) UTI (urinary tract infection): Plan: Urine culture - E. Coli, awaiting sensitivities Started on ceftriaxone 12/10 (3) Chest pain: Plan: Trial Maalox and famotidine. If no relief trial diclofenac gel on left chest as this is her reproducible pain (4) Elevated troponin: Plan: Patient with known CAD presenting with atypical chest pain. Elevated troponin stable. Troponin is chronically elevated. No acute changes on EKG. -Troponin trend stable. Do not suspect NSTEMI especially given pain is reproducible and non obstructive disease on catheterization earlier this year. -Continue ASA, Plavix, Atorvastatin, Metoprolol, Lisinopril and Isosorbide (5) CAD (coronary artery disease): Plan: Patient with CAD. Prior NSTEMI. Follows with Cardiology. Last cardiac catheterization on 03/12/20 with mild nonobstructive CAD, 40% mid LAD, 30% ostial D2 and 30% ostial/proximal RCA. Normal filling pressures. Echo on 03/12/20 with normal LV size and function with EF of 50-55%, mild concentric LVH and aortic valve sclerosis without stenosis -Continue ASA, Plavix, Atorvastatin, Metoprolol, Lisinopril (6) Hypertension: Plan: Blood pressure elevated. Missed lisinopril/HCTZ last night. Will continue her regular meds for now. -Continue Amlodipine, Isosorbide, Lisinopril/HCTZ and Metoprolol -Continue to monitor (7) Diabetes: Plan: Diet controlled -Continue to monitor Plan: F/E/N - Heplock. Electrolytes WNL. AHA diet as tolerated Ppx - Lovenox 30mg SQ daily Code - Full Dispo - Medically stable for discharge pending placement Admission and Anticipated Discharge Date Admission Date: December 10, 2020 Subjective Better night overnight last night with seroquel. Complaining of chest pain again today though. Unclear why she had a better day with this yesterday as no specific treatment given. Initially she tells me this is central and I am unable to reproduce it but then she tells me it is on the left side which is her reproducible pain. No worse on inspiration. Remains confused about disposition. Family are unable to provide 24/7 care therefore referrals to SNF pending at present time. Review of Systems Review of Systems: All systems reviewed & are unremarkable except as noted in HPI & below Physical Exam Constitutional: WD/WN, vitals as above ENMT: Mouth: oral mucous membranes not dry Respiratory: normal respiratory effort, lungs clear to auscultation Cardiovascular: Rate/Rhythm: regular rate and regular rhythm Heart Sounds: + murmur (3/6 LUSB) Vessels: no JVD Extremities: normal capillary refill; no calf tenderness and no pedal edema Gastrointestinal (Abdomen): normal bowel sounds, soft, nontender, no hepatosplenomegaly Musculoskeletal: no cyanosis or clubbing, extremities motor strength 5/5 Skin: no rashes, warm and dry Neurologic: moves all extremities, awake and + confused (short term memory loss, does not remember me from yesterday) Psychiatric: Orientation: alert, oriented to person and oriented to place; + not oriented to time Results & Data Results & Data ([facility]) Vital Signs (Past 12 Hours) Vital Signs Temp Pulse Resp BP Pulse Ox 12/11/20 06:16 36.4 C L 54 L 16 156/71 H 98 PG Care Time/CCT Total # of Minutes Spent Total Time Spent with Patient: Total time spent is greater than 50% in coordination of care (as documented) at patient's floor/unit and/or counseling patient: Coding Level of Care Code 53817 Subseq Hosp Care Lvl 2 Diagnoses Confusion R41.0 UTI (urinary tract infection) N39.0 Hematuria presence: without hematuria Urinary tract infection type: site unspecified Elevated troponin R77.8 CAD (coronary artery disease) I25.10 Hypertension I10 Diabetes E11.9 Chest pain R07.9 (1) UTI (urinary tract infection) Hematuria presence: without hematuria Urinary tract infection type: site unspecified Qualified Code(s): N39.0 - Urinary tract infection, site not specified
[2020-12-11] MEDS ORDERED: ALUMINUM/MAGNESIUM SUSP 30 ML UDC PO STA (14:27)
[2020-12-11] MEDS ORDERED: DICLOFENAC SOD 1% GEL 100 GM TUBE EXT PRN (14:28)
[2020-12-11] MEDS ORDERED: FAMOTIDINE 20MG IV PUSH 20 MG/5 ML SYR IV ONE (15:00)
[2020-12-11] MEDS: OLANZAPINE 2.5 MG TAB PO PRN (16:36)
[2020-12-11] MEDS: ENOXAPARIN INJ 30 MG/0.3 ML SYR SQ SCH (22:15)
[2020-12-11] MEDS: LISINOPRIL/HCTZ 20/12.5MG 1 TAB TAB PO SCH (22:15)
[2020-12-11] MEDS: QUEtiapine FUMARATE 25 MG TABLET PO PRN (22:15)
[2020-12-12] MEDS: LEVOTHYROXINE SODIUM 137 MCG TABLET PO SCH (06:19)
[2020-12-12 07:08] LABS: Basophils # (auto) 0.04 K/uL (0-0.2); Basophils % (auto) 0.7 %; Eosinophils # (auto) 0.23 K/uL (0-0.5); Eosinophils % (auto) 4.3 %; Hematocrit (blood only) 36.6 % (37-47); Immature Granulocytes # (auto) 0.01 K/uL (0.00-0.02); Immature Granulocytes % (auto) 0.2 %; Lymphocytes % (auto) 35.6 %; Mean Corpuscular Hemoglobin 28.7 pg (25-34); Mean Corpuscular Hgb Conc 32.8 g/dL (32-36); Mean Corpuscular Volume 87.6 fL (80-100); Mean Platelet Volume 10.4 fL (7.4-10.4); Monocytes # (auto) 0.82 K/uL (0.11-0.59); Monocytes % (auto) 15.4 %; Neutrophils # (auto) 2.34 K/uL (1.4-6.5); Neutrophils % (auto) 43.8 %; Platelet Count 217 K/uL (130-400); RDW Coefficient of Variation 13.5 % (11.5-14.5); RDW Standard Deviation 43.2 fL (36.4-46.3); Red Blood Count 4.18 M/uL (4.2-5.4); White Blood Count 5.34 K/uL (4.8-10.8)
[2020-12-12 07:51] LABS: Calcium 8.3 mg/dl (8.5-10.1); Creatinine Clr Calc Pharmacy 31.4 ml/min; Est GFR (African American) 41.8 ml/min; Est GFR (Non-African American) 36.1 ml/min; Potassium 4.6 mmol/L (3.5-5.1)
[2020-12-12] MEDS: METOPROLOL SUCC 50MG EXT REL TAB PO SCH ×2 (08:09→08:13)
[2020-12-12] MEDS: ASPIRIN 81 MG ECTAB PO SCH (08:10)
[2020-12-12] MEDS: OLANZAPINE 2.5 MG TAB PO PRN ×2 (08:10→15:46)
[2020-12-12] MEDS: ISOSORBIDE MONO EXTENDED REL 30 MG TABCR PO SCH (08:10)
[2020-12-12] MEDS: CLOPIDOGREL BISULFATE 75 MG TAB PO SCH (08:10)
[2020-12-12] MEDS: ESCITALOPRAM OXALATE 10 MG TAB PO SCH (08:10)
[2020-12-12] MEDS: ATORVASTATIN 40 MG TAB PO SCH (08:11)
[2020-12-12] MEDS: amLODIPine BESYLATE 5 MG TAB PO SCH (08:11)
[2020-12-12] MEDS: cefTRIAXone SODIUM 1,000 MG in DEXTROSE 5% 50 ML IV SCH (09:12)
--- NOTE | 2020-12-12 09:17 | Hospitalist Progress Note ---
Date of Service December 12, 2020 Assessment & Plan (1) Confusion: Plan: Unclear how much UTI contributing but worthwhile treating in case somewhat reversible. Improved sundowning and sleep on Seroquel but would still recommend just PRN as may improve with UTI treatment Medically stable pending placement -no beds available (2) UTI (urinary tract infection): Plan: Urine culture with pansensitive E. Coli Started on ceftriaxone 12/10 -we will continue for 5 days (3) Chest pain: Plan: Unable to get clear report from patient on progress Trial Maalox and famotidine. If no relief trial diclofenac gel on left chest as this is her reproducible pain (4) Elevated troponin: Plan: Patient with known CAD presenting with atypical chest pain. Elevated troponin stable. Troponin is chronically elevated. No acute changes on EKG. -Troponin trend stable. Do not suspect NSTEMI especially given pain is reproducible and non obstructive disease on catheterization earlier this year. -Continue ASA, Plavix, Atorvastatin, Metoprolol, Lisinopril and Isosorbide (5) CAD (coronary artery disease): Plan: Patient with CAD. Prior NSTEMI. Follows with Cardiology. Last cardiac catheterization on 03/12/20 with mild nonobstructive CAD, 40% mid LAD, 30% ostial D2 and 30% ostial/proximal RCA. Normal filling pressures. Echo on 03/12/20 with normal LV size and function with EF of 50-55%, mild concentric LVH and aortic valve sclerosis without stenosis -Continue ASA, Plavix, Atorvastatin, Metoprolol, Lisinopril (6) Hypertension: Plan: Blood pressure elevated. Missed lisinopril/HCTZ last night. Will continue her regular meds for now. -Continue Amlodipine, Isosorbide, Lisinopril/HCTZ and Metoprolol -Continue to monitor -Hydralazine ordered for as needed use (7) Diabetes: Plan: Diet controlled -Continue to monitor Plan: F/E/N - Heplock. Electrolytes WNL. AHA diet as tolerated Ppx - Lovenox 30mg SQ daily Code - Full Dispo - Medically stable for discharge pending placement Admission and Anticipated Discharge Date Admission Date: December 10, 2020 Supervising Physician Co-Signing Physician Notes Patient seen and examined, chart reviewed, case discussed with Carlos Celeste PA-C and I agree with the assessment and plan as above General: Oriented to name only. HEENT: Atraumatic, normocephalic. Visual acuity and hearing grossly intact. Pulm: Symmetrical chest rise. No increase work of breathing. No respiratory distress. Cardiac: Radial pulses intact and symmetrical. Abdominal: Nontender, nondistended, soft. BS present. All labs and images reviewed On initial assessment patient agitated, refuses to be seen. On further discussion pt recognizes provider from outpatient setting, agitation improved with behavioral redirection. No acute questions, would like to leave the hospital as soon as possible. Subjective Attending: Dr. Torres Patient seen at bedside. She was refusing to be seen. She refused physical examination. She denied any shortness of breath or chest pain. Review of Systems Review of Systems: All systems reviewed & are unremarkable except as noted in Subjective Physical Exam Physical Exam: Patient refused physical examination Results & Data Results & Data ([facility]) Vital Signs (Past 12 Hours) Vital Signs Temp Pulse Resp BP Pulse Ox 12/12/20 07:13 36.4 C L 49 L 16 171/64 H 98 12/11/20 22:34 36.5 C 54 L 16 104/65 96 Laboratory Results 12/12/20 05:51 12/12/20 05:51 Diagnostic Findings No further diagnostics PG Care Time/CCT Total # of Minutes Spent Total Time Spent with Patient: Total time spent is greater than 50% in coordination of care (as documented) at patient's floor/unit and/or counseling patient:15 minutes Coding Level of Care Code 66886 Subseq Hosp Care Lvl 2 Diagnoses Confusion R41.0 UTI (urinary tract infection) N39.0 Hematuria presence: without hematuria Urinary tract infection type: site unspecified Chest pain R07.9 Elevated troponin R77.8 CAD (coronary artery disease) I25.10 Hypertension I10 Diabetes E11.9 Time Spent (min) 15 (1) UTI (urinary tract infection) Hematuria presence: without hematuria Urinary tract infection type: site unspecified Qualified Code(s): N39.0 - Urinary tract infection, site not specified
[2020-12-12] MEDS ORDERED: OLANZapine 10 MG/2.1 ML SDV IM STA (17:32)
[2020-12-12] MEDS: ENOXAPARIN INJ 30 MG/0.3 ML SYR SQ SCH (20:31)
[2020-12-12] MEDS: LISINOPRIL/HCTZ 20/12.5MG 1 TAB TAB PO SCH (20:31)
[2020-12-12] MEDS ORDERED: hydrALAZINE HCL 20 MG/ML VIAL IV PRN (20:40)
[2020-12-13] MEDS: LEVOTHYROXINE SODIUM 137 MCG TABLET PO SCH (05:35)
[2020-12-13] MEDS: amLODIPine BESYLATE 5 MG TAB PO SCH (08:06)
[2020-12-13] MEDS: ATORVASTATIN 40 MG TAB PO SCH (08:07)
[2020-12-13] MEDS: ASPIRIN 81 MG ECTAB PO SCH (08:07)
[2020-12-13] MEDS: ESCITALOPRAM OXALATE 10 MG TAB PO SCH (08:07)
[2020-12-13] MEDS: OLANZAPINE 2.5 MG TAB PO PRN ×3 (08:07→16:44)
[2020-12-13] MEDS: CLOPIDOGREL BISULFATE 75 MG TAB PO SCH (08:08)
[2020-12-13] MEDS: ISOSORBIDE MONO EXTENDED REL 30 MG TABCR PO SCH (08:08)
[2020-12-13] MEDS: METOPROLOL SUCC 50MG EXT REL TAB PO SCH (08:08)
[2020-12-13] MEDS: cefTRIAXone SODIUM 1,000 MG in DEXTROSE 5% 50 ML IV SCH (09:59)
--- NOTE | 2020-12-13 16:46 | Hospitalist Progress Note ---
Date of Service December 13, 2020 Assessment & Plan (1) Confusion: Plan: Improved today at the time of my visit. Continue olanzapine Unclear how much UTI contributing but worthwhile treating in case somewhat reversible. Improved sundowning and sleep on Seroquel but would still recommend just PRN as may improve with UTI treatment Medically stable pending placement -no beds available (2) UTI (urinary tract infection): Plan: Urine culture with pansensitive E. Coli Started on ceftriaxone 12/10 -can discontinue tomorrow 12/14/2020 (3) Chest pain: Plan: Unable to get clear report from patient on progress Continue Maalox and famotidine. May trial trial diclofenac gel on left chest as this is her reproducible pain if needed (4) Elevated troponin: Plan: Patient with known CAD presenting with atypical chest pain. Elevated troponin stable. Troponin is chronically elevated. No acute changes on EKG. -Troponin trend stable. Do not suspect NSTEMI especially given pain is reproducible and non obstructive disease on catheterization earlier this year. -Continue ASA, Plavix, Atorvastatin, Metoprolol, Lisinopril and Isosorbide (5) CAD (coronary artery disease): Plan: Patient with CAD. Prior NSTEMI. Follows with Cardiology. Last cardiac catheterization on 03/12/20 with mild nonobstructive CAD, 40% mid LAD, 30% ostial D2 and 30% ostial/proximal RCA. Normal filling pressures. Echo on 03/12/20 with normal LV size and function with EF of 50-55%, mild concentric LVH and aortic valve sclerosis without stenosis -Continue ASA, Plavix, Atorvastatin, Metoprolol, Lisinopril (6) Hypertension: Plan: Blood pressure elevated. Missed lisinopril/HCTZ last night. Will continue her regular meds for now. -Continue Amlodipine, Isosorbide, Lisinopril/HCTZ and Metoprolol -Continue to monitor -Hydralazine ordered for as needed use (7) Diabetes: Plan: Diet controlled -Continue to monitor Plan: F/E/N - Heplock. Electrolytes WNL. AHA diet as tolerated Ppx - Lovenox 30mg SQ daily Code - Full Dispo - Medically stable for discharge pending placement Admission and Anticipated Discharge Date Admission Date: December 10, 2020 Subjective Attending: Dr. Torres Patient seen and examined at bedside. She is much more cooperative today. Was eager to have physical exam and talked about her status. She understands that we are waiting for bed assignment. No acute complaints. Review of Systems Review of Systems: All systems reviewed & are unremarkable except as noted in Subjective Physical Exam Physical Exam: GENERAL : No acute distress. Pleasant. Cooperative EYES: No icterus, gaze conjugate NOSE: No evidence of epistaxis MOUTH: No lesions or candidiasis NECK: Supple LUNGS: CTA B/L, no wheezes, rales or rhonchi HEART: Regular, rate controlled ABDOMEN: Soft, NT, ND, BS Present EXTREMITIES: No LE edema, pedal pulses intact NEURO: A&OX3 Results & Data Results & Data ([facility]) Vital Signs (Past 12 Hours) Vital Signs Temp Pulse Resp BP Pulse Ox 12/13/20 16:23 36.7 C 70 16 161/70 H 99 12/13/20 05:47 37.5 C 55 L 16 173/72 H 98 Laboratory Results 12/12/20 05:51 12/12/20 05:51 Diagnostic Findings No further diagnostics PG Care Time/CCT Total # of Minutes Spent Total Time Spent with Patient: Total time spent is greater than 50% in coordination of care (as documented) at patient's floor/unit and/or counseling patient: Coding Level of Care Code 10370 Subseq Hosp Care Lvl 2 Diagnoses Confusion R41.0 UTI (urinary tract infection) N39.0 Hematuria presence: without hematuria Urinary tract infection type: site unspecified Chest pain R07.9 Elevated troponin R77.8 CAD (coronary artery disease) I25.10 Hypertension I10 Diabetes E11.9 (1) UTI (urinary tract infection) Hematuria presence: without hematuria Urinary tract infection type: site unspecified Qualified Code(s): N39.0 - Urinary tract infection, site not specified
[2020-12-13] MEDS: ENOXAPARIN INJ 30 MG/0.3 ML SYR SQ SCH (20:46)
[2020-12-13] MEDS: LISINOPRIL/HCTZ 20/12.5MG 1 TAB TAB PO SCH (20:46)
[2020-12-13] MEDS: OLANZapine 10 MG/2.1 ML SDV IM PRN (22:22)
[2020-12-13] MEDS ORDERED: haloperidoL 0.5 MG TAB PO STA (23:59)
[2020-12-14] MEDS: LEVOTHYROXINE SODIUM 137 MCG TABLET PO SCH (06:32)
[2020-12-14] MEDS: cefTRIAXone SODIUM 1,000 MG in DEXTROSE 5% 50 ML IV SCH (09:13)
[2020-12-14] MEDS: ATORVASTATIN 40 MG TAB PO SCH (09:13)
[2020-12-14] MEDS: ESCITALOPRAM OXALATE 10 MG TAB PO SCH (09:13)
[2020-12-14] MEDS: ASPIRIN 81 MG ECTAB PO SCH (09:13)
[2020-12-14] MEDS: amLODIPine BESYLATE 5 MG TAB PO SCH (09:13)
[2020-12-14] MEDS: METOPROLOL SUCC 50MG EXT REL TAB PO SCH (09:14)
[2020-12-14] MEDS: ISOSORBIDE MONO EXTENDED REL 30 MG TABCR PO SCH (09:14)
[2020-12-14] MEDS: CLOPIDOGREL BISULFATE 75 MG TAB PO SCH (09:14)
[2020-12-14] MEDS: OLANZAPINE 2.5 MG TAB PO PRN (13:06)
[2020-12-14] MEDS: OLANZapine 10 MG/2.1 ML SDV IM PRN ×2 (15:10→19:59)
--- NOTE | 2020-12-14 17:41 | Hospitalist Progress Note ---
Date of Service December 14, 2020 Assessment & Plan (1) Confusion: Plan: Improved today at the time of my visit. Continue olanzapine as needed Improved sundowning and sleep on Seroquel -we will change from as needed to scheduled HS No significant improvement with treatment of UTI Medically stable pending placement -no beds available (2) UTI (urinary tract infection): Plan: Urine culture with pansensitive E. Coli Started on ceftriaxone 12/10 -can discontinue after 12/15/2020 dose Asymptomatic (3) Chest pain: Plan: Unable to get clear report from patient on progress On second examination by Dr. Torres this morning he identified an area under the left breast with ecchymosis Continue to monitor for pain Continue Maalox and famotidine. May trial trial diclofenac gel on left chest as this is her reproducible pain if needed (4) Elevated troponin: Plan: Patient with known CAD presenting with atypical chest pain. Elevated troponin stable. Troponin is chronically elevated. No acute changes on EKG. -Troponin trend stable. Do not suspect NSTEMI especially given pain is reproducible and non obstructive disease on catheterization earlier this year. -Continue ASA, Plavix, Atorvastatin, Metoprolol, Lisinopril and Isosorbide -Contusion identified under left breast today. No known falls or trauma. (5) CAD (coronary artery disease): Plan: Patient with CAD. Prior NSTEMI. Follows with Cardiology. Last cardiac catheterization on 03/12/20 with mild nonobstructive CAD, 40% mid LAD, 30% ostial D2 and 30% ostial/proximal RCA. Normal filling pressures. Echo on 03/12/20 with normal LV size and function with EF of 50-55%, mild concentric LVH and aortic valve sclerosis without stenosis -Continue ASA, Plavix, Atorvastatin, Metoprolol, Lisinopril (6) Hypertension: Plan: Blood pressure elevated. Missed lisinopril/HCTZ last night. Will continue her regular meds for now. -Continue Amlodipine, Isosorbide, Lisinopril/HCTZ and Metoprolol -Continue to monitor -Hydralazine ordered for as needed use (7) Diabetes: Plan: Diet controlled -Continue to monitor Plan: F/E/N - Heplock. Electrolytes WNL. AHA diet as tolerated Ppx - Lovenox 30mg SQ daily Code - Full Dispo - Medically stable for discharge pending placement Admission and Anticipated Discharge Date Admission Date: December 10, 2020 Subjective Attending: Dr. Torres Patient seen in room 311. She was very collected and cooperative with me today. She pleasurable he allowed physical examination as well as interview. She was cordial. She denied any fever, sweats. No nausea or vomiting. No abdominal pain. No chest pain. Review of Systems Review of Systems: All systems reviewed & are unremarkable except as noted in Subjective Physical Exam Physical Exam: GENERAL : No acute distress. Pleasant. Cooperative EYES: No icterus, gaze conjugate NOSE: No evidence of epistaxis MOUTH: No lesions or candidiasis NECK: Supple LUNGS: CTA B/L, no wheezes, rales or rhonchi HEART: Regular, rate controlled ABDOMEN: Soft, NT, ND, BS Present EXTREMITIES: No LE edema, pedal pulses intact NEURO: A&OX3 Results & Data Results & Data ([facility]) Vital Signs (Past 12 Hours) Vital Signs Temp Pulse Resp BP Pulse Ox 12/14/20 15:00 36.8 C 60 20 114/67 97 12/14/20 07:16 36.4 C L 51 L 17 135/85 97 Laboratory Results 12/12/20 05:51 12/12/20 05:51 Diagnostic Findings No further diagnostics PG Care Time/CCT Total # of Minutes Spent Total Time Spent with Patient: Total time spent is greater than 50% in coordination of care (as documented) at patient's floor/unit and/or counseling patient: Coding Level of Care Code 01424 Subseq Hosp Care Lvl 2 Diagnoses Confusion R41.0 UTI (urinary tract infection) N39.0 Hematuria presence: without hematuria Urinary tract infection type: site unspecified Chest pain R07.9 Elevated troponin R77.8 CAD (coronary artery disease) I25.10 Hypertension I10 Diabetes E11.9 Time Spent (min) 30 (1) UTI (urinary tract infection) Hematuria presence: without hematuria Urinary tract infection type: site unspecified Qualified Code(s): N39.0 - Urinary tract infection, site not specified
[2020-12-14] MEDS: ENOXAPARIN INJ 30 MG/0.3 ML SYR SQ SCH (20:11)
[2020-12-14] MEDS: LISINOPRIL/HCTZ 20/12.5MG 1 TAB TAB PO SCH (20:13)
[2020-12-14] MEDS: QUEtiapine FUMARATE 25 MG TABLET PO SCH (20:19)
[2020-12-15 05:56] LABS: Hemoglobin 12.8 g/dL (12.0-16.0); Mean Corpuscular Hemoglobin 28.8 pg (25-34); Mean Corpuscular Hgb Conc 32.8 g/dL (32-36); Mean Corpuscular Volume 87.8 fL (80-100); Mean Platelet Volume 10.2 fL (7.4-10.4); Platelet Count 216 K/uL (130-400); RDW Coefficient of Variation 13.6 % (11.5-14.5); RDW Standard Deviation 44.1 fL (36.4-46.3); Red Blood Count 4.44 M/uL (4.2-5.4); White Blood Count 5.41 K/uL (4.8-10.8)
[2020-12-15] MEDS: LEVOTHYROXINE SODIUM 137 MCG TABLET PO SCH (06:24)
[2020-12-15 06:29] LABS: BUN Creatinine Ratio 33.4 (10-20); Creatinine Clr Calc Pharmacy 31.7 ml/min; Est GFR (African American) 42.2 ml/min; Est GFR (Non-African American) 36.4 ml/min; Magnesium 2.4 mg/dl (1.8-2.4); Potassium 4.4 mmol/L (3.5-5.1)
[2020-12-15] MEDS: ASPIRIN 81 MG ECTAB PO SCH (10:12)
[2020-12-15] MEDS: ISOSORBIDE MONO EXTENDED REL 30 MG TABCR PO SCH (10:13)
[2020-12-15] MEDS: ATORVASTATIN 40 MG TAB PO SCH (10:13)
[2020-12-15] MEDS: METOPROLOL SUCC 50MG EXT REL TAB PO SCH (10:13)
[2020-12-15] MEDS: amLODIPine BESYLATE 5 MG TAB PO SCH (10:13)
[2020-12-15] MEDS: ESCITALOPRAM OXALATE 10 MG TAB PO SCH (10:18)
[2020-12-15] MEDS: OLANZAPINE 2.5 MG TAB PO PRN ×2 (10:18→15:10)
[2020-12-15] MEDS: CLOPIDOGREL BISULFATE 75 MG TAB PO SCH (10:19)
--- NOTE | 2020-12-15 18:18 | Hospitalist Progress Note ---
Date of Service December 15, 2020 Assessment & Plan (1) Confusion: Plan: Pleasant at the time of my examination but did require some reorientation. Continue olanzapine as needed Changed Seroquel to scheduled HS Continue to keep blinds open during the day as well as keeping lights on. Encourage patient out of bed to chair as tolerated during the day No significant improvement with treatment of UTI Medically stable pending placement -no beds available (2) UTI (urinary tract infection): Plan: Urine culture with pansensitive E. Coli Completed 5-day course of ceftriaxone last dose was 12/15/2020 dose Asymptomatic (3) Chest pain: Plan: Unable to get clear report from patient on progress On second examination by Dr. Torres this morning he identified an area under the left breast with ecchymosis Continue to monitor for pain Continue Maalox and famotidine. Lidoderm patch placed at that area as well. (4) Elevated troponin: Plan: Patient with known CAD presenting with atypical chest pain. Elevated troponin stable. Troponin is chronically elevated. No acute changes on EKG. -Troponin trend stable. Do not suspect NSTEMI especially given pain is reprod ucible and non obstructive disease on catheterization earlier this year. -Continue ASA, Plavix, Atorvastatin, Metoprolol, Lisinopril and Isosorbide -Contusion identified under left breast today. No known falls or trauma. Lidoderm patch ordered for pain to this area (5) CAD (coronary artery disease): Plan: Patient with CAD. Prior NSTEMI. Follows with Cardiology. Last cardiac catheterization on 03/12/20 with mild nonobstructive CAD, 40% mid LAD, 30% ostial D2 and 30% ostial/proximal RCA. Normal filling pressures. Echo on 03/12/20 with normal LV size and function with EF of 50-55%, mild concentric LVH and aortic valve sclerosis without stenosis -Continue ASA, Plavix, Atorvastatin, Metoprolol, Lisinopril (6) Hypertension: Plan: Blood pressure elevated. Missed lisinopril/HCTZ last night. Will continue her regular meds for now. -Continue Amlodipine, Isosorbide, Lisinopril/HCTZ and Metoprolol -Continue to monitor -Hydralazine ordered for as needed use (7) Diabetes: Plan: Diet controlled -Continue to monitor Plan: F/E/N - Heplock. Check PRP tomorrow. AHA diet as tolerated Ppx - Lovenox 30mg SQ daily Code - Full Dispo - Medically stable for discharge pending placement Admission and Anticipated Discharge Date Admission Date: December 10, 2020 Subjective Attending: Dr. Torres Patient seen and examined at bedside. She is quite pleasant. Cooperative with examination and interview. No acute complaints. Review of Systems Review of Systems: All systems reviewed & are unremarkable except as noted in Subjective Physical Exam Physical Exam: GENERAL : No acute distress. Pleasant. Cooperative EYES: No icterus, gaze conjugate NOSE: No evidence of epistaxis MOUTH: No lesions or candidiasis NECK: Supple LUNGS: CTA B/L, no wheezes, rales or rhonchi HEART: Regular, rate controlled CHEST: Some tenderness under left breast. This is consistent with location of contusion ABDOMEN: Soft, NT, ND, BS Present EXTREMITIES: No LE edema, pedal pulses intact NEURO: Awake and alert. Needs some reorientation. Results & Data Results & Data ([facility]) Vital Signs (Past 12 Hours) Vital Signs Temp Pulse Resp BP Pulse Ox 12/15/20 15:28 36.1 C L 56 L 20 136/66 99 12/15/20 09:02 36.6 C 62 16 149/69 H 97 Laboratory Results 12/15/20 05:38 12/15/20 05:38 Diagnostic Findings No further diagnostics PG Care Time/CCT Total # of Minutes Spent Total Time Spent with Patient: Total time spent is greater than 50% in coordination of care (as documented) at patient's floor/unit and/or counseling patient: 20 minutes Coding Level of Care Code 78253 Subseq Hosp Care Lvl 2 Diagnoses Confusion R41.0 UTI (urinary tract infection) N39.0 Hematuria presence: without hematuria Urinary tract infection type: site unspecified Chest pain R07.9 Elevated troponin R77.8 CAD (coronary artery disease) I25.10 Hypertension I10 Diabetes E11.9 Time Spent (min) 20 (1) UTI (urinary tract infection) Hematuria presence: without hematuria Urinary tract infection type: site uns pecified Qualified Code(s): N39.0 - Urinary tract infection, site not specified
[2020-12-15] MEDS: ENOXAPARIN INJ 30 MG/0.3 ML SYR SQ SCH (20:07)
[2020-12-15] MEDS: QUEtiapine FUMARATE 25 MG TABLET PO SCH (20:08)
[2020-12-15] MEDS: LISINOPRIL/HCTZ 20/12.5MG 1 TAB TAB PO SCH (20:08)
[2020-12-15] MEDS: OLANZapine 10 MG/2.1 ML SDV IM PRN (20:42)
[2020-12-15] MEDS: LIDOCAINE 5% 1 PATCH TD SCH (20:42)
[2020-12-16] MEDS: LEVOTHYROXINE SODIUM 137 MCG TABLET PO SCH (06:10)
[2020-12-16 07:34] LABS: BUN Creatinine Ratio 35.5 (10-20); Creatinine Clr Calc Pharmacy 32.6 ml/min; Est GFR (African American) 43.8 ml/min; Est GFR (Non-African American) 37.8 ml/min; Potassium 4.8 mmol/L (3.5-5.1)
[2020-12-16] MEDS: ATORVASTATIN 40 MG TAB PO SCH (08:11)
[2020-12-16] MEDS: ASPIRIN 81 MG ECTAB PO SCH (08:11)
[2020-12-16] MEDS: ISOSORBIDE MONO EXTENDED REL 30 MG TABCR PO SCH (08:11)
[2020-12-16] MEDS: ESCITALOPRAM OXALATE 10 MG TAB PO SCH (08:11)
[2020-12-16] MEDS: CLOPIDOGREL BISULFATE 75 MG TAB PO SCH (08:11)
[2020-12-16] MEDS: amLODIPine BESYLATE 5 MG TAB PO SCH (08:11)
[2020-12-16] MEDS: METOPROLOL SUCC 50MG EXT REL TAB PO SCH (08:13)
[2020-12-16] MEDS: OLANZAPINE 2.5 MG TAB PO PRN ×2 (15:51→19:29)
[2020-12-16] MEDS: LIDOCAINE 5% 1 PATCH TD SCH (18:26)
[2020-12-16] MEDS: QUEtiapine FUMARATE 25 MG TABLET PO SCH (19:30)
[2020-12-16] MEDS: LISINOPRIL/HCTZ 20/12.5MG 1 TAB TAB PO SCH (19:30)
--- NOTE | 2020-12-16 19:42 | Hospitalist Progress Note ---
Date of Service December 16, 2020 Assessment & Plan (1) Confusion: Plan: Pleasant at the time of my examination but did require some reorientation. Continue olanzapine as needed Doing well with Seroquel to scheduled HS The night reorientation, continue to keep blinds open during the day as well as keeping lights on. Encourage patient out of bed to chair as tolerated during the day No significant improvement with treatment of UTI Medically stable pending placement -no beds available (2) UTI (urinary tract infection): Plan: Urine culture with pansensitive E. Coli Completed 5-day course of ceftriaxone last dose was 12/15/2020 dose Asymptomatic (3) Chest pain: Plan: Unable to get clear report from patient on progress On second examination by Dr. Torres this morning he identified an area under the left breast with ecchymosis Continue to monitor for pain Continue Maalox and famotidine. Lidoderm patch placed at that area as well. (4) Elevated troponin: Plan: Patient with known CAD presenting with atypical chest pain. Elevated troponin stable. Troponin is chronically elevated. No acute changes on EKG. -Troponin trend stable. Do not suspect NSTEMI especially given pain is reproducible and non obstructive disease on catheterization earlier this year. -Continue ASA, Plavix, Atorvastatin, Metoprolol, Lisinopril and Isosorbide -Contusion identified under left breast reproducible sign of chest pain no known falls or trauma. Lidoderm patch ordered for pain to this area (5) CAD (coronary artery disease): Plan: Patient with CAD. Prior NSTEMI. Follows with Cardiology. Last cardiac catheterization on 03/12/20 with mild nonobstructive CAD, 40% mid LAD, 30% ostial D2 and 30% ostial/proximal RCA. Normal filling pressures. Echo on 03/12/20 with normal LV size and function with EF of 50-55%, mild concentric LVH and aortic valve sclerosis without stenosis -Continue ASA, Plavix, Atorvastatin, Metoprolol, Lisinopril (6) Hypertension: Plan: Blood pressure elevated. Missed lisinopril/HCTZ last night. Will continue her regular meds for now. -Continue Amlodipine, Isosorbide, Lisinopril/HCTZ and Metoprolol -Continue to monitor -Hydralazine ordered for as needed use (7) Diabetes: Plan: Diet controlled -Continue to monitor Plan: F/E/N - Heplock. Check PRP tomorrow. AHA diet as tolerated Ppx - Lovenox 30mg SQ daily Code - Full Dispo - Medically stable for discharge pending placement Admission and Anticipated Discharge Date Admission Date: December 10, 2020 Subjective this pt is pleasantly confused today, no focal issues at this time awaiting for placement Review of Systems Review of Systems: Mild distress and fatigue no headache, no visual changes no speech or swallowing issues no chest pain, pressure or palpitations no shortness of breath, cough or wheezes no abdominal pain, nausea or vomiting, diarrhea or constipation no dysuria, hematuria or frequency no focal joint pain or swelling no back pain, CVA tenderness or radicular pain no bruising, bleeding or rashes no focal signs of weakness or numbness or altered sensation no complaints of anxiety or depression.. Physical Exam Physical Exam: The patient appeared well nourished and normally developed. Vital signs as documented. Head exam is normocephalic atraumatic Neck is without JVD, thyromegaly, or carotid bruits. Lungs are clear to auscultation, no focal loss of breath sounds Cardiac exam, Rhythm is regular.. No murmurs, rubs or gallops. Abdominal exam reveals normal bowel sounds, soft non tender, no masses Extremities are nonedematous and both pedal pulses are present Neurologic exam is alert and oriented, no focal loss of strength or sensation Skin is without bruises or rashes Psychologically is without concerns for anxiety or depression Results & Data Results & Data ([facility]) Vital Signs (Past 12 Hours) Vital Signs Temp Pulse Resp BP Pulse Ox 12/16/20 17:20 97.9 F 63 16 123/72 99 12/16/20 07:52 97.5 F L 50 L 18 164/61 H 98 PG Care Time/CCT Total # of Minutes Spent Total Time Spent with Patient: Total time spent is greater than 50% in coordination of care (as documented) at patient's floor/unit and/or counseling patient: Coding Level of Care Code 24842 Subseq Hosp Care Lvl 2 Diagnoses Confusion R41.0 UTI (urinary tract infection) N39.0 Hematuria presence: without hematuria Urinary tract infection type: site unspecified Chest pain R07.9 Elevated troponin R77.8 CAD (coronary artery disease) I25.10 Hypertension I10 Diabetes E11.9 (1) UTI (urinary tract infection) Hematuria presence: without hematuria Urinary tract infection type: site unspecified Qualified Code(s): N39.0 - Urinary tract infection, site not specified
[2020-12-16] MEDS: ENOXAPARIN INJ 30 MG/0.3 ML SYR SQ SCH (20:27)
[2020-12-16] MEDS: OLANZapine 10 MG/2.1 ML SDV IM PRN (21:01)
[2020-12-17] MEDS: ACETAMINOPHEN 325 MG TAB PO PRN (04:00)
[2020-12-17] MEDS: LEVOTHYROXINE SODIUM 137 MCG TABLET PO SCH (06:27)
[2020-12-17] MEDS: amLODIPine BESYLATE 5 MG TAB PO SCH (08:43)
[2020-12-17] MEDS: ATORVASTATIN 40 MG TAB PO SCH (08:43)
[2020-12-17] MEDS: ISOSORBIDE MONO EXTENDED REL 30 MG TABCR PO SCH (08:43)
[2020-12-17] MEDS: ASPIRIN 81 MG ECTAB PO SCH (08:43)
[2020-12-17] MEDS: ESCITALOPRAM OXALATE 10 MG TAB PO SCH (08:44)
[2020-12-17] MEDS: CLOPIDOGREL BISULFATE 75 MG TAB PO SCH (08:44)
[2020-12-17] MEDS: METOPROLOL SUCC 50MG EXT REL TAB PO SCH (08:44)
[2020-12-17] MEDS: OLANZapine 10 MG/2.1 ML SDV IM PRN (15:31)
--- NOTE | 2020-12-17 15:48 | Hospitalist Progress Note ---
Date of Service December 17, 2020 Assessment & Plan (1) Confusion: Plan: Pleasant at the time of my examination but did require some reorientation. Continue olanzapine as needed Doing well with Seroquel to scheduled HS The night reorientation, continue to keep blinds open during the day as well as keeping lights on. Encourage patient out of bed to chair as tolerated during the day No significant improvement with treatment of UTI Medically stable pending placement -no beds available (2) UTI (urinary tract infection): Plan: Urine culture with pansensitive E. Coli Completed 5-day course of ceftriaxone last dose was 12/15/2020 dose Asymptomatic (3) Chest pain: Plan: Unable to get clear report from patient on progress On second examination by Dr. Torres this morning he identified an area under the left breast with ecchymosis Continue to monitor for pain Continue Maalox and famotidine. Lidoderm patch placed at that area as well. (4) Elevated troponin: Plan: Patient with known CAD presenting with atypical chest pain. Elevated troponin stable. Troponin is chronically elevated. No acute changes on EKG. -Troponin trend stable. Do not suspect NSTEMI especially given pain is reproducible and non obstructive disease on catheterization earlier this year. -Continue ASA, Plavix, Atorvastatin, Metoprolol, Lisinopril and Isosorbide -Contusion identified under left breast reproducible sign of chest pain no known falls or trauma. Lidoderm patch ordered for pain to this area (5) CAD (coronary artery disease): Plan: Patient with CAD. Prior NSTEMI. Follows with Cardiology. Last cardiac catheterization on 03/12/20 with mild nonobstructive CAD, 40% mid LAD, 30% ostial D2 and 30% ostial/proximal RCA. Normal filling pressures. Echo on 03/12/20 with normal LV size and function with EF of 50-55%, mild concentric LVH and aortic valve sclerosis without stenosis -Continue ASA, Plavix, Atorvastatin, Metoprolol, Lisinopril (6) Hypertension: Plan: Blood pressure elevated. Missed lisinopril/HCTZ last night. Will continue her regular meds for now. -Continue Amlodipine, Isosorbide, Lisinopril/HCTZ and Metoprolol -Continue to monitor -Hydralazine ordered for as needed use (7) Diabetes: Plan: Diet controlled -Continue to monitor Plan: F/E/N - Heplock. Check PRP tomorrow. AHA diet as tolerated Ppx - Lovenox 30mg SQ daily Code - Full Dispo - Medically stable for discharge pending placement Admission and Anticipated Discharge Date Admission Date: December 10, 2020 Subjective this pt is pleasantly confused today, no focal issues at this time awaiting for placement Review of Systems Review of Systems: Mild distress and fatigue no headache, no visual changes no speech or swallowing issues no chest pain, pressure or palpitations no shortness of breath, cough or wheezes no abdominal pain, nausea or vomiting, diarrhea or constipation no dysuria, hematuria or frequency no focal joint pain or swelling no back pain, CVA tenderness or radicular pain no bruising, bleeding or rashes no focal signs of weakness or numbness or altered sensation no complaints of anxiety or depression.. Physical Exam Physical Exam: The patient appeared well nourished and normally developed. Vital signs as documented. Head exam is normocephalic atraumatic Neck is without JVD, thyromegaly, or carotid bruits. Lungs are clear to auscultation, no focal loss of breath sounds Cardiac exam, Rhythm is regular.. No murmurs, rubs or gallops. Abdominal exam reveals normal bowel sounds, soft non tender, no masses Extremities are nonedematous and both pedal pulses are present Neurologic exam is alert and oriented, no focal loss of strength or sensation Skin is without bruises or rashes Psychologically is without concerns for anxiety or depression Results & Data Results & Data ([facility]) Vital Signs (Past 12 Hours) Vital Signs Temp Pulse Pulse Resp BP Pulse Ox 12/17/20 08:44 61 12/17/20 07:37 97.5 F L 56 L 16 146/63 H 96 12/17/20 04:07 97.5 F L 94 H 20 131/81 98 PG Care Time/CCT Total # of Minutes Spent Total Time Spent with Patient: Total time spent is greater than 50% in coordination of care (as documented) at patient's floor/unit and/or counseling patient: Coding Level of Care Code 58017 Subseq Hosp Care Lvl 1 Diagnoses Confusion R41.0 UTI (urinary tract infection) N39.0 Hematuria presence: without hematuria Urinary tract infection type: site unspecified Chest pain R07.9 Elevated troponin R77.8 CAD (coronary artery disease) I25.10 Hypertension I10 Diabetes E11.9 (1) UTI (urinary tract infection) Hematuria presence: without hematuria Urinary tract infection type: site unspecified Qualified Code(s): N39.0 - Urinary tract infection, site not specified
--- NOTE | 2020-12-17 17:17 | CT Scan Report ---
CT SCAN OF THE BRAIN WITHOUT IV CONTRAST CLINICAL HISTORY: Strokelike symptoms. Change in mental status. COMPARISON STUDY: CT of the brain dated 05/23/2020. TECHNIQUE: Unenhanced axial CT scan of the brain is performed from the vertex to the skull base. A do se lowering technique was utilized adhering to the principles of ALARA. The skull base was scanned tw ice due to motion artifact. CT DOSE: 998.18 mGy.cm FINDINGS: Brain parenchyma: There are age-related involutional changes noting moderate confluent subcortical a nd periventricular microangiopathic change. There is no hemorrhage, mass effect, or evidence of acute territorial ischemia by CT criteria. A chronic lacunar infarct is noted in the left melara radiata. Alvarez-white matter differentiation is preserved. No extra-axial fluid collection is seen. Ventricles, sulci, cisterns: Prominent secondary to involutional change. Intracranial vasculature: There is atherosclerotic calcification of the cavernous carotid and vertebr al arteries. Vascular coils are again seen in the in the right suprasellar region. Calvarium: Unremarkable. Sinuses and mastoids: The visualized paranasal sinuses are clear. The mastoid air cells are well pneu matized. Orbits: The bony orbits are grossly intact. There are bilateral ocular lens implants. IMPRESSION: There is no hemorrhage, mass effect, or evidence of acute territorial ischemia by CT renard cordoba. ACT 112: Negative or not required by law. Electronically signed by: Carlos Atwood M.D. 12/17/2020 5:16 PM
[2020-12-17] MEDS: LIDOCAINE 5% 1 PATCH TD SCH (18:52)
[2020-12-17] MEDS: LISINOPRIL/HCTZ 20/12.5MG 1 TAB TAB PO SCH (21:05)
[2020-12-17] MEDS: MELATONIN 3 MG TAB PO SCH (21:05)
[2020-12-17] MEDS: ENOXAPARIN INJ 30 MG/0.3 ML SYR SQ SCH (21:05)
[2020-12-18] MEDS: LEVOTHYROXINE SODIUM 137 MCG TABLET PO SCH (05:32)
[2020-12-18] MEDS: amLODIPine BESYLATE 5 MG TAB PO SCH (09:05)
[2020-12-18] MEDS: ISOSORBIDE MONO EXTENDED REL 30 MG TABCR PO SCH (09:05)
[2020-12-18] MEDS: ATORVASTATIN 40 MG TAB PO SCH (09:05)
[2020-12-18] MEDS: ASPIRIN 81 MG ECTAB PO SCH (09:05)
[2020-12-18] MEDS: CLOPIDOGREL BISULFATE 75 MG TAB PO SCH (09:06)
[2020-12-18] MEDS: METOPROLOL SUCC 50MG EXT REL TAB PO SCH (09:06)
[2020-12-18] MEDS: LIDOCAINE 5% 1 PATCH TD SCH (17:43)
--- NOTE | 2020-12-18 19:05 | Hospitalist Progress Note ---
Date of Service December 18, 2020 Assessment & Plan (1) Confusion: Plan: Pleasant at the time of my examination but did require some reorientation. Continue olanzapine as needed Doing well with Seroquel to scheduled HS The night reorientation, continue to keep blinds open during the day as well as keeping lights on. Encourage patient out of bed to chair as tolerated during the day No significant improvement with treatment of UTI Medically stable pending placement -no beds available (2) UTI (urinary tract infection): Plan: Urine culture with pansensitive E. Coli Completed 5-day course of ceftriaxone last dose was 12/15/2020 dose Asymptomatic (3) Chest pain: Plan: Unable to get clear report from patient on progress On second examination by Dr. Torres this morning he identified an area under the left breast with ecchymosis Continue to monitor for pain Continue Maalox and famotidine. Lidoderm patch placed at that area as well. (4) Elevated troponin: Plan: Patient with known CAD presenting with atypical chest pain. Elevated troponin stable. Troponin is chronically elevated. No acute changes on EKG. -Troponin trend stable. Do not suspect NSTEMI especially given pain is reproducible and non obstructive disease on catheterization earlier this year. -Continue ASA, Plavix, Atorvastatin, Metoprolol, Lisinopril and Isosorbide -Contusion identified under left breast reproducible sign of chest pain no known falls or trauma. Lidoderm patch ordered for pain to this area (5) CAD (coronary artery disease): Plan: Patient with CAD. Prior NSTEMI. Follows with Cardiology. Last cardiac catheterization on 03/12/20 with mild nonobstructive CAD, 40% mid LAD, 30% ostial D2 and 30% ostial/proximal RCA. Normal filling pressures. Echo on 03/12/20 with normal LV size and function with EF of 50-55%, mild concentric LVH and aortic valve sclerosis without stenosis -Continue ASA, Plavix, Atorvastatin, Metoprolol, Lisinopril (6) Hypertension: Plan: Blood pressure elevated. Missed lisinopril/HCTZ last night. Will continue her regular meds for now. -Continue Amlodipine, Isosorbide, Lisinopril/HCTZ and Metoprolol -Continue to monitor -Hydralazine ordered for as needed use (7) Diabetes: Plan: Diet controlled -Continue to monitor Plan: Ppx - Lovenox 30mg SQ daily Code - Full Admission and Anticipated Discharge Date Admission Date: December 10, 2020 Subjective this pt is pleasantly confused today, no focal issues at this time awaiting for placement Review of Systems Review of Systems: Mild distress and fatigue no headache, no visual changes no speech or swallowing issues no chest pain, pressure or palpitations no shortness of breath, cough or wheezes no abdominal pain, nausea or vomiting, diarrhea or constipation no dysuria, hematuria or frequency no focal joint pain or swelling no back pain, CVA tenderness or radicular pain no bruising, bleeding or rashes no focal signs of weakness or numbness or altered sensation no complaints of anxiety or depression.. Physical Exam Physical Exam: The patient appeared well nourished and normally developed. Vital signs as documented. Head exam is normocephalic atraumatic Neck is without JVD, thyromegaly, or carotid bruits. Lungs are clear to auscultation, no focal loss of breath sounds Cardiac exam, Rhythm is regular.. No murmurs, rubs or gallops. Abdominal exam reveals normal bowel sounds, soft non tender, no masses Extremities are nonedematous and both pedal pulses are present Neurologic exam is alert and oriented, no focal loss of strength or sensation Skin is without bruises or rashes Psychologically is without concerns for anxiety or depression Results & Data Results & Data ([facility] [place]) Vital Signs (Past 12 Hours) Vital Signs Temp Pulse Resp BP Pulse Ox 12/18/20 15:21 97.7 F 64 18 124/62 99 12/18/20 11:13 97.5 F L 59 L 18 110/65 96 PG Care Time/CCT Total # of Minutes Spent Total Time Spent with Patient: Total time spent is greater than 50% in coordination of care (as documented) at patient's floor/unit and/or counseling patient: Coding Level of Care Code 86917 Subseq Hosp Care Lvl 1 Diagnoses Confusion R41.0 UTI (urinary tract infection) N39.0 Hematuria presence: without hematuria Urinary tract infection type: site unspecified Chest pain R07.9 Elevated troponin R77.8 CAD (coronary artery disease) I25.10 Hypertension I10 Diabetes E11.9 (1) UTI (urinary tract infection) Hematuria presence: without hematuria Urinary tract infection type: site unspecified Qualified Code(s): N39.0 - Urinary tract infection, site not specified
[2020-12-18] MEDS: ENOXAPARIN INJ 30 MG/0.3 ML SYR SQ SCH (20:08)
[2020-12-18] MEDS: MELATONIN 3 MG TAB PO SCH (20:09)
[2020-12-19] MEDS: LEVOTHYROXINE SODIUM 137 MCG TABLET PO SCH (06:16)
[2020-12-19] MEDS: ATORVASTATIN 40 MG TAB PO SCH (08:50)
[2020-12-19] MEDS: ASPIRIN 81 MG ECTAB PO SCH (08:50)
[2020-12-19] MEDS: CLOPIDOGREL BISULFATE 75 MG TAB PO SCH (08:51)
[2020-12-19] MEDS: amLODIPine BESYLATE 5 MG TAB PO SCH (08:51)
[2020-12-19] MEDS: ISOSORBIDE MONO EXTENDED REL 30 MG TABCR PO SCH (08:51)
[2020-12-19] MEDS: METOPROLOL SUCC 50MG EXT REL TAB PO SCH (08:51)
[2020-12-19] MEDS: lisinopril 20 MG TAB PO SCH (08:51)
[2020-12-19] MEDS: ONDANSETRON INJ 2 MG/ML 2 ML VIAL IV PRN (15:28)
--- NOTE | 2020-12-19 16:50 | Hospitalist Progress Note ---
Date of Service December 19, 2020 Assessment & Plan (1) Confusion: Plan: Pleasant continues to require reorientation. stopped olanzapine per family request for ADR with this drug class Doing well with melatonin hs The night reorientation, continue to keep blinds open during the day as well as keeping lights on. Encourage patient out of bed to chair as tolerated during the day Hoped would have more rebound after uti treated Medically stable pending placement -no beds available (2) UTI (urinary tract infection): Plan: Urine culture with pansensitive E. Coli Completed 5-day course of ceftriaxone last dose was 12/15/2020 dose Asymptomatic repeat culture 12/17 negative for infection (3) Chest pain: Plan: Unable to get clear report from patient on progress On second examination by Dr. Torres this morning he identified an area under the left breast with ecchymosis Continue to monitor for pain Continue Maalox and famotidine. Lidoderm patch placed at that area as well. (4) Elevated troponin: Plan: Patient with known CAD presenting with atypical chest pain. Elevated troponin stable. Troponin is chronically elevated. No acute changes on EKG. -Troponin trend stable. Do not suspect NSTEMI especially given pain is reproducible and non obstructive disease on catheterization earlier this year. -Continue ASA, Plavix, Atorvastatin, Metoprolol, Lisinopril and Isosorbide -Contusion identified under left breast reproducible sign of chest pain no known falls or trauma. Lidoderm patch ordered for pain to this area (5) CAD (coronary artery disease): Plan: Patient with CAD. Prior NSTEMI. Follows with Cardiology. Last cardiac catheterization on 03/12/20 with mild nonobstructive CAD, 40% mid LAD, 30% ostial D2 and 30% ostial/proximal RCA. Normal filling pressures. Echo on 03/12/20 with normal LV size and function with EF of 50-55%, mild concentric LVH and aortic valve sclerosis without stenosis -Continue ASA, Plavix, Atorvastatin, Metoprolol, Lisinopril (6) Hypertension: Plan: -Continue Amlodipine, Isosorbide, Lisinopril/HCTZ and Metoprolol -Hydralazine ordered for as needed use (7) Diabetes: Plan: Diet controlled -Continue to monitor Plan: issue is appropriate facility with opening Ppx - Lovenox 30mg SQ daily Code - Full Admission and Anticipated Discharge Date Admission Date: December 10, 2020 Subjective this pt is pleasant today, did have a family visit yesterday and seems to have a positive affect, as per family request to continue to try to push fluids Review of Systems Review of Systems: Mild distress and fatigue no headache, no visual changes no speech or swallowing issues no chest pain, pressure or palpitations no shortness of breath, cough or wheezes no abdominal pain, nausea or vomiting, diarrhea or constipation no dysuria, hematuria or frequency no focal joint pain or swelling no back pain, CVA tenderness or radicular pain no bruising, bleeding or rashes no focal signs of weakness or numbness or altered sensation no complaints of anxiety or depression.. Physical Exam Physical Exam: The patient appeared well nourished and normally developed. Vital signs as documented. Head exam is normocephalic atraumatic Neck is without JVD, thyromegaly, or carotid bruits. Lungs are clear to auscultation, no focal loss of breath sounds Cardiac exam, Rhythm is regular.. No murmurs, rubs or gallops. Abdominal exam reveals normal bowel sounds, soft non tender, no masses Extremities are nonedematous and both pedal pulses are present Neurologic exam is alert and oriented, no focal loss of strength or sensation Skin is without bruises or rashes Psychologically is without concerns for anxiety or depression Results & Data Results & Data ([facility]) Vital Signs (Past 12 Hours) Vital Signs Temp Pulse Pulse Resp BP Pulse Ox 12/19/20 16:05 97.3 F L 68 16 126/57 L 97 12/19/20 08:49 97.5 F L 54 L 16 154/69 H 98 PG Care Time/CCT Total # of Minutes Spent Total Time Spent with Patient: Total time spent is greater than 50% in coordination of care (as documented) at patient's floor/unit and/or counseling patient: Coding Level of Care Code 58020 Subseq Hosp Care Lvl 1 Diagnoses Confusion R41.0 UTI (urinary tract infection) N39.0 Hematuria presence: without hematuria Urinary tract infection type: site unspecified Chest pain R07.9 Elevated troponin R77.8 CAD (coronary artery disease) I25.10 Hypertension I10 Diabetes E11.9 (1) UTI (urinary tract infection) Hematuria presence: without hematuria Urinary tract infection type: site unspecified Qualified Code(s): N39.0 - Urinary tract infection, site not specified
[2020-12-19] MEDS: LIDOCAINE 5% 1 PATCH TD SCH (18:48)
[2020-12-19] MEDS: ENOXAPARIN INJ 30 MG/0.3 ML SYR SQ SCH (20:49)
[2020-12-19] MEDS: MELATONIN 3 MG TAB PO SCH (20:49)
[2020-12-20] MEDS: LEVOTHYROXINE SODIUM 137 MCG TABLET PO SCH (06:26)
[2020-12-20] MEDS: amLODIPine BESYLATE 5 MG TAB PO SCH (10:31)
[2020-12-20] MEDS: ATORVASTATIN 40 MG TAB PO SCH (10:32)
[2020-12-20] MEDS: CLOPIDOGREL BISULFATE 75 MG TAB PO SCH (10:32)
[2020-12-20] MEDS: lisinopril 20 MG TAB PO SCH (10:33)
[2020-12-20] MEDS: ISOSORBIDE MONO EXTENDED REL 30 MG TABCR PO SCH (10:33)
[2020-12-20] MEDS: ASPIRIN 81 MG ECTAB PO SCH (10:33)
[2020-12-20] MEDS: METOPROLOL SUCC 50MG EXT REL TAB PO SCH (10:34)
[2020-12-20] MEDS: ONDANSETRON INJ 2 MG/ML 2 ML VIAL IV PRN (16:13)
--- NOTE | 2020-12-20 18:51 | Hospitalist Progress Note ---
Date of Service December 20, 2020 Assessment & Plan (1) Confusion: Plan: Pleasant continues to require reorientation. stopped olanzapine per family request for ADR with this drug class Doing well with melatonin hs The night reorientation, continue to keep blinds open during the day as well as keeping lights on. Encourage patient out of bed to chair as tolerated during the day Hoped would have more rebound after uti treated Medically stable pending placement -no beds available (2) UTI (urinary tract infection): Plan: Urine culture with pansensitive E. Coli Completed 5-day course of ceftriaxone last dose was 12/15/2020 dose Asymptomatic repeat culture 12/17 negative for infection (3) Chest pain: Plan: Unable to get clear report from patient on progress On second examination by Dr. Torres this morning he identified an area under the left breast with ecchymosis Continue to monitor for pain Continue Maalox and famotidine. Lidoderm patch placed at that area as well. (4) Elevated troponin: Plan: Patient with known CAD presenting with atypical chest pain. Elevated troponin stable. Troponin is chronically elevated. No acute changes on EKG. -Troponin trend stable. Do not suspect NSTEMI especially given pain is reproducible and non obstructive disease on catheterization earlier this year. -Continue ASA, Plavix, Atorvastatin, Metoprolol, Lisinopril and Isosorbide -Contusion identified under left breast reproducible sign of chest pain no known falls or trauma. Lidoderm patch ordered for pain to this area (5) CAD (coronary artery disease): Plan: Patient with CAD. Prior NSTEMI. Follows with Cardiology. Last cardiac catheterization on 03/12/20 with mild nonobstructive CAD, 40% mid LAD, 30% ostial D2 and 30% ostial/proximal RCA. Normal filling pressures. Echo on 03/12/20 with normal LV size and function with EF of 50-55%, mild concentric LVH and aortic valve sclerosis without stenosis -Continue ASA, Plavix, Atorvastatin, Metoprolol, Lisinopril (6) Hypertension: Plan: -Continue Amlodipine, Isosorbide, Lisinopril/HCTZ and Metoprolol -Hydralazine ordered for as needed use (7) Diabetes: Plan: Diet controlled -Continue to monitor Plan: issue is appropriate facility with opening Ppx - Lovenox 30mg SQ daily Code - Full Admission and Anticipated Discharge Date Admission Date: December 10, 2020 Subjective this pt is pleasant today, did have a family visit 12/19 and seems to have a positive affect, as per family request to continue to try to push fluids Very little changes day-to-day currently are waiting for placement issues patient is pleasantly confused at times needing redirection Review of Systems Review of Systems: Mild distress and fatigue no headache, no visual changes no speech or swallowing issues no chest pain, pressure or palpitations no shortness of breath, cough or wheezes no abdominal pain, nausea or vomiting, diarrhea or constipation no dysuria, hematuria or frequency no focal joint pain or swelling no back pain, CVA tenderness or radicular pain no bruising, bleeding or rashes no focal signs of weakness or numbness or altered sensation no complaints of anxiety or depression.. Physical Exam Physical Exam: The patient appeared well nourished and normally developed. Vital signs as documented. Head exam is normocephalic atraumatic Neck is without JVD, thyromegaly, or carotid bruits. Lungs are clear to auscultation, no focal loss of breath sounds Cardiac exam, Rhythm is regular.. No murmurs, rubs or gallops. Abdominal exam reveals normal bowel sounds, soft non tender, no masses Extremities are nonedematous and both pedal pulses are present Neurologic exam is alert and oriented, no focal loss of strength or sensation Skin is without bruises or rashes Psychologically is without concerns for anxiety or depression Results & Data Results & Data ([facility]) Vital Signs (Past 12 Hours) Vital Signs Temp Pulse Resp BP BP Pulse Ox 12/20/20 17:14 97.3 F L 66 16 126/74 100 12/20/20 10:30 97.5 F L 68 18 124/61 97 PG Care Time/CCT Total # of Minutes Spent Total Time Spent with Patient: Total time spent is greater than 50% in coordination of care (as documented) at patient's floor/unit and/or counseling patient: Coding Level of Care Code 97505 Subseq Hosp Care Lvl 1 Diagnoses Confusion R41.0 UTI (urinary tract infection) N39.0 Hematuria presence: without hematuria Urinary tract infection type: site unspecified Chest pain R07.9 Elevated troponin R77.8 CAD (coronary artery disease) I25.10 Hypertension I10 Diabetes E11.9 (1) UTI (urinary tract infection) Hematuria presence: without hematuria Urinary tract infection type: site unspecified Qualified Code(s): N39.0 - Urinary tract infection, site not specified
[2020-12-20] MEDS: LIDOCAINE 5% 1 PATCH TD SCH (19:33)
[2020-12-20] MEDS: ENOXAPARIN INJ 30 MG/0.3 ML SYR SQ SCH (20:01)
[2020-12-20] MEDS: MELATONIN 3 MG TAB PO SCH (20:01)
[2020-12-21] MEDS: LEVOTHYROXINE SODIUM 137 MCG TABLET PO SCH (06:23)
[2020-12-21 09:30] LABS: Hematocrit (blood only) 37.6 % (37-47); Hemoglobin 12.1 g/dL (12.0-16.0); Mean Corpuscular Hemoglobin 28.4 pg (25-34); Mean Corpuscular Hgb Conc 32.2 g/dL (32-36); Mean Corpuscular Volume 88.3 fL (80-100); Mean Platelet Volume 10.7 fL (7.4-10.4); Platelet Count 251 K/uL (130-400); RDW Coefficient of Variation 13.7 % (11.5-14.5); RDW Standard Deviation 44.5 fL (36.4-46.3); Red Blood Count 4.26 M/uL (4.2-5.4); White Blood Count 5.62 K/uL (4.8-10.8)
[2020-12-21 09:59] LABS: BUN Creatinine Ratio 44.3 (10-20); Calcium 9.5 mg/dl (8.5-10.1); Creatinine Clr Calc Pharmacy 27.5 ml/min; Est GFR (African American) 35.6 ml/min; Est GFR (Non-African American) 30.7 ml/min; Potassium 5.3 mmol/L (3.5-5.1)
[2020-12-21] MEDS: ISOSORBIDE MONO EXTENDED REL 30 MG TABCR PO SCH (10:00)
[2020-12-21] MEDS: ATORVASTATIN 40 MG TAB PO SCH (10:01)
[2020-12-21] MEDS: ASPIRIN 81 MG ECTAB PO SCH (10:01)
[2020-12-21] MEDS: CLOPIDOGREL BISULFATE 75 MG TAB PO SCH (10:01)
[2020-12-21] MEDS: METOPROLOL SUCC 50MG EXT REL TAB PO SCH (10:01)
[2020-12-21] MEDS: lisinopril 20 MG TAB PO SCH (10:02)
[2020-12-21] MEDS: amLODIPine BESYLATE 5 MG TAB PO SCH (10:02)
--- NOTE | 2020-12-21 18:26 | Hospitalist Progress Note ---
Date of Service December 21, 2020 Assessment & Plan (1) Confusion: Plan: Pleasant continues to require reorientation. stopped olanzapine per family request for ADR with this drug class Doing well with melatonin hs The night reorientation, continue to keep blinds open during the day as well as keeping lights on. Encourage patient out of bed to chair as tolerated during the day Hoped would have more rebound after uti treated Medically stable pending placement -no beds available (2) UTI (urinary tract infection): Plan: Urine culture with pansensitive E. Coli Completed 5-day course of ceftriaxone last dose was 12/15/2020 dose Asymptomatic repeat culture 12/17 negative for infection (3) Chest pain: Plan: Unable to get clear report from patient on progress On second examination by Dr. Torres this morning he identified an area under the left breast with ecchymosis Continue to monitor for pain Continue Maalox and famotidine. Lidoderm patch placed at that area as well. (4) Elevated troponin: Plan: Patient with known CAD presenting with atypical chest pain. Elevated troponin stable. Troponin is chronically elevated. No acute changes on EKG. -Troponin trend stable. Do not suspect NSTEMI especially given pain is reproducible and non obstructive disease on catheterization earlier this year. -Continue ASA, Plavix, Atorvastatin, Metoprolol, Lisinopril and Isosorbide -Contusion identified under left breast reproducible sign of chest pain no known falls or trauma. Lidoderm patch ordered for pain to this area (5) CAD (coronary artery disease): Plan: Patient with CAD. Prior NSTEMI. Follows with Cardiology. Last cardiac catheterization on 03/12/20 with mild nonobstructive CAD, 40% mid LAD, 30% ostial D2 and 30% ostial/proximal RCA. Normal filling pressures. Echo on 03/12/20 with normal LV size and function with EF of 50-55%, mild concentric LVH and aortic valve sclerosis without stenosis -Continue ASA, Plavix, Atorvastatin, Metoprolol, Lisinopril (6) Hypertension: Plan: -Continue Amlodipine, Isosorbide, Lisinopril/HCTZ and Metoprolol -Hydralazine ordered for as needed use (7) Diabetes: Plan: Diet controlled -Continue to monitor Plan: issue is appropriate facility with opening Ppx - Lovenox 30mg SQ daily Code - Full Admission and Anticipated Discharge Date Admission Date: December 10, 2020 Subjective this pt is pleasant today, did have a family visit 12/19 and seems to have a positive affect, as per family request to continue to try to push fluids Very little changes day-to-day currently are waiting for placement issues patient is pleasantly confused at times needing redirection Review of Systems Review of Systems: Mild distress and fatigue no headache, no visual changes no speech or swallowing issues no chest pain, pressure or palpitations no shortness of breath, cough or wheezes no abdominal pain, nausea or vomiting, diarrhea or constipation no dysuria, hematuria or frequency no focal joint pain or swelling no back pain, CVA tenderness or radicular pain no bruising, bleeding or rashes no focal signs of weakness or numbness or altered sensation no complaints of anxiety or depression.. Physical Exam Physical Exam: The patient appeared well nourished and normally developed. Vital signs as documented. Head exam is normocephalic atraumatic Neck is without JVD, thyromegaly, or carotid bruits. Lungs are clear to auscultation, no focal loss of breath sounds Cardiac exam, Rhythm is regular.. No murmurs, rubs or gallops. Abdominal exam reveals normal bowel sounds, soft non tender, no masses Extremities are nonedematous and both pedal pulses are present Neurologic exam is alert and oriented, no focal loss of strength or sensation Skin is without bruises or rashes Psychologically is without concerns for anxiety or depression Results & Data Results & Data ([facility]) Vital Signs (Past 12 Hours) Vital Signs Temp Pulse Resp BP Pulse Ox 12/21/20 15:11 98.8 F 85 18 137/67 96 PG Care Time/CCT Total # of Minutes Spent Total Time Spent with Patient: Total time spent is greater than 50% in c oordination of care (as documented) at patient's floor/unit and/or counseling patient: Coding Level of Care Code 43853 Subseq Hosp Care Lvl 1 Diagnoses Confusion R41.0 UTI (urinary tract infection) N39.0 Hematuria presence: without hematuria Urinary tract infection type: site unspecified Chest pain R07.9 Elevated troponin R77.8 CAD (coronary artery disease) I25.10 Hypertension I10 Diabetes E11.9 (1) UTI (urinary tract infection) Hematuria presence: without hematuria Urinary tract infection type: site unspecified Qualified Code(s): N39.0 - Urinary tract infection, site not specified
[2020-12-21] MEDS: LIDOCAINE 5% 1 PATCH TD SCH (19:15)
[2020-12-21] MEDS: MELATONIN 3 MG TAB PO SCH (19:15)
[2020-12-21] MEDS: ENOXAPARIN INJ 30 MG/0.3 ML SYR SQ SCH (19:16)
[2020-12-22] MEDS: LEVOTHYROXINE SODIUM 137 MCG TABLET PO SCH (06:24)
[2020-12-22] MEDS: ISOSORBIDE MONO EXTENDED REL 30 MG TABCR PO SCH (08:32)
[2020-12-22] MEDS: METOPROLOL SUCC 50MG EXT REL TAB PO SCH (08:33)
[2020-12-22] MEDS: amLODIPine BESYLATE 5 MG TAB PO SCH (08:33)
[2020-12-22] MEDS: ATORVASTATIN 40 MG TAB PO SCH (08:47)
[2020-12-22] MEDS: lisinopril 20 MG TAB PO SCH (08:47)
[2020-12-22] MEDS: CLOPIDOGREL BISULFATE 75 MG TAB PO SCH (08:47)
[2020-12-22] MEDS: ASPIRIN 81 MG ECTAB PO SCH (08:48)
--- NOTE | 2020-12-22 18:10 | Hospitalist Progress Note ---
Date of Service December 22, 2020 Assessment & Plan (1) Confusion: Plan: Pleasant continues to require reorientation. stopped olanzapine per family request for ADR with this drug class Doing well with melatonin hs The night reorientation, continue to keep blinds open during the day as well as keeping lights on. Encourage patient out of bed to chair as tolerated during the day Hoped would have more rebound after uti treated Medically stable pending placement -no beds available (2) UTI (urinary tract infection): Plan: Urine culture with pansensitive E. Coli Completed 5-day course of ceftriaxone last dose was 12/15/2020 dose Asymptomatic repeat culture 12/17 negative for infection (3) Chest pain: Plan: Unable to get clear report from patient on progress On second examination by Dr. Torres this morning he identified an area under the left breast with ecchymosis Continue to monitor for pain Continue Maalox and famotidine. Lidoderm patch placed at that area as well. (4) Elevated troponin: Plan: Patient with known CAD presenting with atypical chest pain. Elevated troponin stable. Troponin is chronically elevated. No acute changes on EKG. -Troponin trend stable. Do not suspect NSTEMI especially given pain is reproducible and non obstructive disease on catheterization earlier this year. -Continue ASA, Plavix, Atorvastatin, Metoprolol, Lisinopril and Isosorbide -Contusion identified under left breast reproducible sign of chest pain no known falls or trauma. Lidoderm patch ordered for pain to this area (5) CAD (coronary artery disease): Plan: Patient with CAD. Prior NSTEMI. Follows with Cardiology. Last cardiac catheterization on 03/12/20 with mild nonobstructive CAD, 40% mid LAD, 30% ostial D2 and 30% ostial/proximal RCA. Normal filling pressures. Echo on 03/12/20 with normal LV size and function with EF of 50-55%, mild concentric LVH and aortic valve sclerosis without stenosis -Continue ASA, Plavix, Atorvastatin, Metoprolol, Lisinopril (6) Hypertension: Plan: -Continue Amlodipine, Isosorbide, Lisinopril/HCTZ and Metoprolol -Hydralazine ordered for as needed use (7) Diabetes: Plan: Diet controlled -Continue to monitor Plan: issue is appropriate facility with opening Ppx - Lovenox 30mg SQ daily Code - Full Admission and Anticipated Discharge Date Admission Date: December 10, 2020 Subjective this pt is pleasant today, did have a family visit on and seems to have a positive affect, as per family request to continue to try to push fluids Very little changes day-to-day currently are waiting for placement issues patient is pleasantly confused at times needing redirection, still need constant reminders to push fluids Review of Systems Review of Systems: Mild distress and fatigue no headache, no visual changes no speech or swallowing issues no chest pain, pressure or palpitations no shortness of breath, cough or wheezes no abdominal pain, nausea or vomiting, diarrhea or constipation no dysuria, hematuria or frequency no focal joint pain or swelling no back pain, CVA tenderness or radicular pain no bruising, bleeding or rashes no focal signs of weakness or numbness or altered sensation has memory impairment and some periods of agitation requiring a sitter Physical Exam Physical Exam: The patient appeared well nourished and normally developed. Vital signs as documented. Head exam is normocephalic atraumatic Neck is without JVD, thyromegaly, or carotid bruits. Lungs are clear to auscultation, no focal loss of breath sounds Cardiac exam, Rhythm is regular.. No murmurs, rubs or gallops. Abdominal exam reveals normal bowel sounds, soft non tender, no masses Extremities are nonedematous and both pedal pulses are present Neurologic exam is alert and oriented, no focal loss of strength or sensation Skin is without bruises or rashes Psychologically is with concerns with dementia Results & Data Results & Data ([facility]) Vital Signs (Past 12 Hours) Vital Signs Temp Pulse Pulse Resp BP Pulse Ox 12/22/20 15:14 98.4 F 67 18 121/60 99 12/22/20 06:29 98.2 F 60 18 125/66 99 PG Care Time/CCT Total # of Minutes Spent Total Time Spent with Patient: Total time spent is greater than 50% in coordination of care (as documented) at patient's floor/unit and/or counseling patient: Coding Level of Care Code 20571 Subseq Hosp Care Lvl 1 Diagnoses Confusion R41.0 UTI (urinary tract infection) N39.0 Hematuria presence: without hematuria Urinary tract infection type: site unspecified Chest pain R07.9 Elevated troponin R77.8 CAD (coronary artery disease) I25.10 Hypertension I10 Diabetes E11.9 (1) UTI (urinary tract infection) Hematuria presence: without hematuria Urinary tract infection type: site unspecified Qualified Code(s): N39.0 - Urinary tract infection, site not s pecified
[2020-12-22] MEDS: ENOXAPARIN INJ 30 MG/0.3 ML SYR SQ SCH (19:28)
[2020-12-22] MEDS: LIDOCAINE 5% 1 PATCH TD SCH (19:29)
[2020-12-22] MEDS: MELATONIN 3 MG TAB PO SCH (19:30)
[2020-12-23] MEDS: LEVOTHYROXINE SODIUM 137 MCG TABLET PO SCH (05:15)
[2020-12-23] MEDS: amLODIPine BESYLATE 5 MG TAB PO SCH (08:27)
[2020-12-23] MEDS: lisinopril 20 MG TAB PO SCH (08:27)
[2020-12-23] MEDS: ATORVASTATIN 40 MG TAB PO SCH (08:27)
[2020-12-23] MEDS: METOPROLOL SUCC 50MG EXT REL TAB PO SCH (08:28)
[2020-12-23] MEDS: ASPIRIN 81 MG ECTAB PO SCH (08:28)
[2020-12-23] MEDS: ISOSORBIDE MONO EXTENDED REL 30 MG TABCR PO SCH (08:28)
[2020-12-23] MEDS: CLOPIDOGREL BISULFATE 75 MG TAB PO SCH (08:28)
[2020-12-23] MEDS: LIDOCAINE 5% 1 PATCH TD SCH (19:02)
[2020-12-23] MEDS: ENOXAPARIN INJ 30 MG/0.3 ML SYR SQ SCH (20:08)
[2020-12-23] MEDS: MELATONIN 3 MG TAB PO SCH (20:08)
[2020-12-24] MEDS: LEVOTHYROXINE SODIUM 137 MCG TABLET PO SCH (05:28)
[2020-12-24] MEDS: amLODIPine BESYLATE 5 MG TAB PO SCH (08:28)
[2020-12-24] MEDS: lisinopril 20 MG TAB PO SCH (08:28)
[2020-12-24] MEDS: ATORVASTATIN 40 MG TAB PO SCH (08:29)
[2020-12-24] MEDS: ASPIRIN 81 MG ECTAB PO SCH (08:29)
[2020-12-24] MEDS: ISOSORBIDE MONO EXTENDED REL 30 MG TABCR PO SCH (08:30)
[2020-12-24] MEDS: CLOPIDOGREL BISULFATE 75 MG TAB PO SCH (08:30)
[2020-12-24] MEDS: METOPROLOL SUCC 50MG EXT REL TAB PO SCH (08:30)
[2020-12-24] MEDS: LIDOCAINE 5% 1 PATCH TD SCH (18:50)
--- NOTE | 2020-12-24 18:53 | Hospitalist Progress Note ---
Date of Service December 24, 2020 Assessment & Plan (1) Confusion: Plan: Pleasant continues to require reorientation. Stopped olanzapine per family request for ADR with this drug class. Not requiring any antipsychotics for many days. Doing well with melatonin hs The night reorientation, continue to keep blinds open during the day as well as keeping lights on. Encourage patient out of bed to chair as tolerated during the day Hoped would have more rebound after uti treated Medically stable pending placement (2) UTI (urinary tract infection): Plan: Urine culture with pansensitive E. Coli Completed 5-day course of ceftriaxone last dose was 12/15/2020 dose Asymptomatic repeat culture 12/17 negative for infection (3) Chest pain: Plan: Unable to get clear report from patient on progress On second examination by Dr. Torres this morning he identified an area under the left breast with ecchymosis Continue to monitor for pain Continue Maalox and famotidine. Lidoderm patch placed at that area as well. (4) Elevated troponin: Plan: Patient with known CAD presenting with atypical chest pain. Elevated troponin stable. Troponin is chronically elevated. No acute changes on EKG. -Troponin trend stable. Do not suspect NSTEMI especially given pain is repro ducible and non obstructive disease on catheterization earlier this year. -Continue ASA, Plavix, Atorvastatin, Metoprolol, Lisinopril and Isosorbide -Contusion identified under left breast reproducible sign of chest pain no known falls or trauma. Lidoderm patch ordered for pain to this area (5) CAD (coronary artery disease): Plan: Patient with CAD. Prior NSTEMI. Follows with Cardiology. Last cardiac catheterization on 03/12/20 with mild nonobstructive CAD, 40% mid LAD, 30% ostial D2 and 30% ostial/proximal RCA. Normal filling pressures. Echo on 03/12/20 with normal LV size and function with EF of 50-55%, mild concentric LVH and aortic valve sclerosis without stenosis -Continue ASA, Plavix, Atorvastatin, Metoprolol, Lisinopril (6) Hypertension: Plan: -Continue Amlodipine, Isosorbide, Lisinopril/HCTZ and Metoprolol -Hydralazine ordered for as needed use (7) Diabetes: Plan: Diet controlled -Continue to monitor Plan: issue is appropriate facility with opening Ppx - Lovenox 30mg SQ daily Code - Full Admission and Anticipated Discharge Date Admission Date: December 10, 2020 Subjective No acute events overnight. No questions or concerns. Awaiting placement at this time. Review of Systems Review of Systems: All systems reviewed & are unremarkable except as noted in HPI & below Physical Exam Constitutional: WD/WN, vitals as above no acute distress Respiratory: normal respiratory effort Psychiatric: Orientation: alert and oriented to person; + not oriented to place and + not oriented to time Results & Data Results & Data ([facility]) Vital Signs (Past 12 Hours) Vital Signs Temp Pulse Pulse Resp BP Pulse Ox 12/24/20 15:13 36.6 C 83 16 119/60 97 12/24/20 08:25 70 12/24/20 08:04 36.4 C L 61 16 118/69 98 PG Care Time/CCT Total # of Minutes Spent Total Time Spent with Patient: Total time spent is greater than 50% in coordination of care (as documented) at patient's floor/unit and/or counseling patient: Coding Level of Care Code 81387 Subseq Hosp Care Lvl 1 Diagnoses Confusion R41.0 UTI (urinary tract infection) N39.0 Hematuria presence: without hematuria Urinary tract infection type: site unspecified Chest pain R07.9 Elevated troponin R77.8 CAD (coronary artery disease) I25.10 Hypertension I10 Diabetes E11.9 (1) UTI (urinary tract infection) Hematuria presence: without hematuria Urinary tract infection type: site unspecified Qualified Code(s): N39.0 - Urinary tract infection, site not specified
--- NOTE | 2020-12-24 18:53 | Hospitalist Progress Note ---
Date of Service December 23, 2020 Assessment & Plan (1) Confusion: Plan: Pleasant continues to require reorientation. Stopped olanzapine per family request for ADR with this drug class. Not requiring any antipsychotics for many days. Doing well with melatonin hs The night reorientation, continue to keep blinds open during the day as well as keeping lights on. Encourage patient out of bed to chair as tolerated during the day Hoped would have more rebound after uti treated Medically stable pending placement - no beds available (2) UTI (urinary tract infection): Plan: Urine culture with pansensitive E. Coli Completed 5-day course of ceftriaxone last dose was 12/15/2020 dose Asymptomatic repeat culture 12/17 negative for infection (3) Chest pain: Plan: Unable to get clear report from patient on progress On second examination by Dr. Torres this morning he identified an area under the left breast with ecchymosis Continue to monitor for pain Continue Maalox and famotidine. Lidoderm patch placed at that area as well. (4) Elevated troponin: Plan: Patient with known CAD presenting with atypical chest pain. Elevated troponin stable. Troponin is chronically elevated. No acute changes on EKG. -Troponin trend stable. Do not suspect NSTEMI especially given pain is reproducible and non obstructive disease on catheterization earlier this year. -Continue ASA, Plavix, Atorvastatin, Metoprolol, Lisinopril and Isosorbide -Contusion identified under left breast reproducible sign of chest pain no known falls or trauma. Lidoderm patch ordered for pain to this area (5) CAD (coronary artery disease): Plan: Patient with CAD. Prior NSTEMI. Follows with Cardiology. Last cardiac catheterization on 03/12/20 with mild nonobstructive CAD, 40% mid LAD, 30% ostial D2 and 30% ostial/proximal RCA. Normal filling pressures. Echo on 03/12/20 with normal LV size and function with EF of 50-55%, mild concentric LVH and aortic valve sclerosis without stenosis -Continue ASA, Plavix, Atorvastatin, Metoprolol, Lisinopril (6) Hypertension: Plan: -Continue Amlodipine, Isosorbide, Lisinopril/HCTZ and Metoprolol -Hydralazine ordered for as needed use (7) Diabetes: Plan: Diet controlled -Continue to monitor Plan: issue is appropriate facility with opening Ppx - Lovenox 30mg SQ daily Code - Full Admission and Anticipated Discharge Date Admission Date: December 10, 2020 Subjective No acute events overnight. No questions or concerns for me today. Awaiting marvin cement at this time. Review of Systems Review of Systems: All systems reviewed & are unremarkable except as noted in HPI & below Physical Exam Constitutional: WD/WN, vitals as above no acute distress Respiratory: normal respiratory effort Psychiatric: Orientation: alert, oriented to person and oriented to place; + not oriented to time Results & Data Results & Data ([facility]) Vital Signs (Past 12 Hours) Vital Signs Temp Pulse Pulse Resp BP Pulse Ox 12/24/20 15:13 36.6 C 83 16 119/60 97 12/24/20 08:25 70 12/24/20 08:04 36.4 C L 61 16 118/69 98 PG Care Time/CCT Total # of Minutes Spent Total Time Spent with Patient: Total time spent is greater than 50% in coordination of care (as documented) at patient's floor/unit and/or counseling patient: Coding Level of Care Code 64500 Subseq Hosp Care Lvl 1 Diagnoses Confusion R41.0 UTI (urinary tract infection) N39.0 Hematuria presence: without hematuria Urinary tract infection type: site unspecified Chest pain R07.9 Elevated troponin R77.8 CAD (coronary artery disease) I25.10 Hypertension I10 Diabetes E11.9 (1) UTI (urinary tract infection) Hematuria presence: without hematuria Urinary tract infection type: site unspecified Qualified Code(s): N39.0 - Urinary tract infection, site not specified
[2020-12-24] MEDS: ENOXAPARIN INJ 30 MG/0.3 ML SYR SQ SCH (21:43)
[2020-12-24] MEDS: MELATONIN 3 MG TAB PO SCH (21:43)
[2020-12-25] MEDS: LEVOTHYROXINE SODIUM 137 MCG TABLET PO SCH (06:03)
[2020-12-25] MEDS: ATORVASTATIN 40 MG TAB PO SCH (08:30)
[2020-12-25] MEDS: ISOSORBIDE MONO EXTENDED REL 30 MG TABCR PO SCH (08:30)
[2020-12-25] MEDS: ASPIRIN 81 MG ECTAB PO SCH (08:31)
[2020-12-25] MEDS: amLODIPine BESYLATE 5 MG TAB PO SCH (08:31)
[2020-12-25] MEDS: CLOPIDOGREL BISULFATE 75 MG TAB PO SCH (08:31)
[2020-12-25] MEDS: lisinopril 20 MG TAB PO SCH (08:31)
[2020-12-25] MEDS: METOPROLOL SUCC 50MG EXT REL TAB PO SCH (08:31)
[2020-12-25] MEDS: ACETAMINOPHEN 325 MG TAB PO PRN ×2 (08:37→22:59)
--- NOTE | 2020-12-25 14:45 | Hospitalist Progress Note ---
Date of Service December 25, 2020 Assessment & Plan (1) Confusion: Plan: Pleasant continues to require reorientation. Stopped olanzapine per family request for ADR with this drug class. Not requiring any antipsychotics for many days. Doing well with melatonin hs The night reorientation, continue to keep blinds open during the day as well as keeping lights on. Encourage patient out of bed to chair as tolerated during the day Hoped would have more rebound after uti treated Medically stable pending placement (2) UTI (urinary tract infection): Plan: Urine culture with pansensitive E. Coli Completed 5-day course of ceftriaxone last dose was 12/15/2020 dose Asymptomatic repeat culture 12/17 negative for infection (3) Chest pain: Plan: Unable to get clear report from patient on progress On second examination by Dr. Torres this morning he identified an area under the left breast with ecchymosis Continue to monitor for pain Continue Maalox and famotidine. Lidoderm patch placed at that area as well. (4) Elevated troponin: Plan: Patient with known CAD presenting with atypical chest pain. Elevated troponin stable. Troponin is chronically elevated. No acute changes on EKG. -Troponin trend stable. Do not suspect NSTEMI especially given pain is repro ducible and non obstructive disease on catheterization earlier this year. -Continue ASA, Plavix, Atorvastatin, Metoprolol, Lisinopril and ISMN -Contusion identified under left breast reproducible sign of chest pain no known falls or trauma. Lidoderm patch ordered for pain to this area (5) CAD (coronary artery disease): Plan: Patient with CAD. Prior NSTEMI. Follows with Cardiology. Last cardiac catheterization on 03/12/20 with mild nonobstructive CAD, 40% mid LAD, 30% ostial D2 and 30% ostial/proximal RCA. Normal filling pressures. Echo on 03/12/20 with normal LV size and function with EF of 50-55%, mild concentric LVH and aortic valve sclerosis without stenosis -Continue ASA, Plavix, Atorvastatin, Metoprolol, Lisinopril (6) Hypertension: Plan: -Continue Amlodipine, Isosorbide, Lisinopril/HCTZ and Metoprolol -Hydralazine ordered for as needed use (7) Diabetes: Plan: Diet controlled -Continue to monitor Plan: Continue to search for facility with case management Ppx - Lovenox 30mg SQ daily Code - Full Admission and Anticipated Discharge Date Admission Date: December 10, 2020 Subjective No acute events overnight. Discussed with RN, no current concerns, patient at baseline. Awaiting placement at this time. Updated her daughter over the phone. Review of Systems Review of Systems: All systems reviewed & are unremarkable except as noted in HPI & below Physical Exam Constitutional: WD/WN, vitals as above no acute distress Respiratory: normal respiratory effort Psychiatric: Orientation: alert and oriented to person; + not oriented to place and + not oriented to time Results & Data Results & Data ([facility]) Vital Signs (Past 12 Hours) Vital Signs Temp Pulse Resp BP Pulse Ox 12/25/20 07:23 36.6 C 65 16 118/78 97 PG Care Time/CCT Total # of Minutes Spent Total Time Spent with Patient: Total time spent is greater than 50% in coordination of care (as documented) at patient's floor/unit and/or counseling patient: Coding Level of Care Code 00844 Subseq Hosp Care Lvl 1 Diagnoses Confusion R41.0 UTI (urinary tract infection) N39.0 Hematuria presence: without hematuria Urinary tract infection type: site unspecified Chest pain R07.9 Elevated troponin R77.8 CAD (coronary artery disease) I25.10 Hypertension I10 Diabetes E11.9 (1) UTI (urinary tract infection) Hematuria presence: without hematuria Urinary tract infection type: site unspecified Qualified Code(s): N39.0 - Urinary tract infection, site not specified
[2020-12-25] MEDS: LIDOCAINE 5% 1 PATCH TD SCH (18:15)
[2020-12-25] MEDS: MELATONIN 3 MG TAB PO SCH (20:23)
[2020-12-25] MEDS: ENOXAPARIN INJ 30 MG/0.3 ML SYR SQ SCH (20:23)
[2020-12-26] MEDS: LEVOTHYROXINE SODIUM 137 MCG TABLET PO SCH (06:20)
[2020-12-26] MEDS: ISOSORBIDE MONO EXTENDED REL 30 MG TABCR PO SCH (10:36)
[2020-12-26] MEDS: ATORVASTATIN 40 MG TAB PO SCH (10:36)
[2020-12-26] MEDS: lisinopril 20 MG TAB PO SCH (10:36)
[2020-12-26] MEDS: METOPROLOL SUCC 50MG EXT REL TAB PO SCH (10:36)
[2020-12-26] MEDS: amLODIPine BESYLATE 5 MG TAB PO SCH (10:36)
[2020-12-26] MEDS: ASPIRIN 81 MG ECTAB PO SCH (10:36)
[2020-12-26] MEDS: CLOPIDOGREL BISULFATE 75 MG TAB PO SCH (10:37)
--- NOTE | 2020-12-26 16:11 | Discharge Summary ---
Date of Service December 26, 2020 Admission HPI Per Admitting Provider Mae Acuna is an 85yo female presenting from home with chest discomfort. Son reports that patient has been experiencing some substernal and left sided chest discomfort over the last 3 days. Discomfort is intermittent, non- positional, non-exertional and non-pleuritic. Patient has had history of atypical chest pain in the past. She follows with Cardiology. Presently on Metoprolol and Isosorbide. Patient states she has not been having any chest pain. Presently with no complaints ER Course: ASA 324mg Principal Diagnosis Atypical chest pain Discharge Exam Constitutional WD/WN, vitals as above no acute distress Eyes PERRL, conjunctivae normal, anicteric sclerae ENMT Mouth: oral mucous membranes not dry Respiratory normal respiratory effort, lungs clear to auscultation normal respiratory effort Cardiovascular Rate/Rhythm: regular rate and regular rhythm Heart Sounds: + murmur (3/6 LUSB) Vessels: no JVD Extremities: normal capillary refill; no calf tenderness and no pedal edema Chest (Breasts) Chest: normal inspection of chest (Quarter sized bruise on left lateral chest) Gastrointestinal (Abdomen) normal bowel sounds, soft, nontender, no hepatosplenomegaly Musculoskeletal no cyanosis or clubbing, extremities motor strength 5/5 Skin no rashes, warm and dry Neurologic moves all extremities, awake and + confused (short term memory loss, does not remember me from yesterday) Psychiatric Orientation: alert and oriented to person; + not oriented to place and + not oriented to time Genitourinary no CVA tenderness Discharge Data Allergies Allergy/AdvReac Type Severity Reaction Status Date / Time cefpodoxime [From Vantin] Allergy Unknown Unknown Verified 12/08/20 23:07 Sulfa (Sulfonamide Allergy Unknown Unknown Verified 12/08/20 23:07 Antibiotics) Consultations 12/08/20 19:44 ED Decision to Admit Stat Ordered Studies 12/17/20 16:51 CT head/brain wo con Routine IMPRESSION: There is no hemorrhage, mass effect, or evidence of acute territorial ischemia by CT criteria Hospital Course (1) Confusion: Mae Acuna is an 85 year old female were admitted to [facility] from December 08-2020 due to chest pain. This chest pain has been longstanding and most likely musculoskeletal given it's intermittent nature and reproducibility on palpation. Serial troponins were minimally elevated and stable (they are chronically elevated). Due to dehydration and poor oral intake hydrochlorothiazide was discontinued. Please repeat BMP in 1 week after discharge. Your discharge was delayed due to PT/OT assessments recommending 24/7 care which was unable to be organized at home therefore you are now being transferred to [place]. (2) UTI (urinary tract infection): (3) Chest pain: (4) Elevated troponin: (5) CAD (coronary artery disease): (6) Hypertension: (7) Diabetes: Total Time Total Time Spent Total Time Spent (In Minutes): 20 Discharge Plan Discharge Items Patient Disposition: Transfer Inpatient Rehab Fac Reason For Visit: CHEST PAIN Discharge Diagnosis: Atypical chest pain Activity: Resume your previous activity Non-emergency contact: Primary Care Provider Call non-emergency contact if: you have any medication questions and your symptoms worsen Follow-up/Referrals: Jaguar Kelly [Primary Care Provider] - Diet: Regular Addtl Attending Provider Instructions: You were admitted to [facility] from December 08-2020 due to chest pain. This chest pain has been longstanding and most likely musculoskeletal given it's intermittent nature and reproducibility on palpation. Serial troponins were minimally elevated and stable (they are chronically elevated). Due to dehydration and poor oral intake recommend holding hydrochlorothiazide. Please repeat BMP in 1 week after discharge. Your discharge was delayed due to PT/OT assessments recommending 24/7 care which was unable to be organized at home therefore you are now being transferred to [place]. Pending Studies at Discharge: No Stand-Alone Forms: My [facility] Skilled Items Patient informed of condition?: Yes DNR: No Discharge Level of Care: Acute rehab Communicable Disease: No Discharge Prognosis: Stable Lines: None Urinary Catheter: No Medications and DC Order Prescriptions: New lisinopril 20 mg Tablet 20 mg PO QAM Qty: 30 RF: 0 melatonin 3 mg Tablet 3 mg PO HS Qty: 30 RF: 0 Continued clopidogrel 75 mg Tablet 75 mg PO QAM Qty: 30 RF: 3 atorvastatin [Lipitor] 40 mg tablet 40 mg PO QAM RF: 0 levothyroxine 137 mcg tablet 137 mcg PO DAILY RF: 0 amlodipine 2.5 mg tablet 2.5 mg PO DAILY RF: 0 nitroglycerin [Nitrostat] 0.4 mg Tablet, Sublingual 0.4 mg sublingual UD PRN (Reason: chest pain) Qty: 14 RF: 0 metoprolol succinate 50 mg tablet extended release 24 hr 50 mg PO QAM RF: 0 isosorbide mononitrate 30 mg tablet extended release 24 hr 30 mg PO QAM RF: 0 aspirin 81 mg tablet,delayed release (DR/EC) 81 mg PO QAM RF: 0 escitalopram oxalate 5 mg tablet 5 mg PO DAILY RF: 0 Discontinued lisinopril-hydrochlorothiazide 20-12.5 mg Tablet 1 tab PO HS RF: 0 Discharge Orders: Discharge Order (Routine); Ordered 12/26/20 Ordered By: Georgi Robertson Admission Data Admit Date/Time: 12/10/20 17:12 Attending Provider: Georgi Robertson Admit Provider: Faiza Sheffield Primary Care Provider: Jaguar Kelly Other Providers: Faiza Sheffield ; [facility] ; [facility] ; [facility] Coding Level of Care Code D/C DAY MANAGEMENT <30 MINS Diagnoses Confusion R41.0 UTI (urinary tract infection) N39.0 Hematuria presence: without hematuria Urinary tract infection type: site unspecified Chest pain R07.9 Elevated troponin R77.8 CAD (coronary artery disease) I25.10 Hypertension I10 Diabetes E11.9
== END 2020-12-26 18:26 | DRG 313 ==
LOC: ED 14:48 → EDINP 14:48 → SUATTDRO 20:17 → EDINP 21:59 → 3E 12-09 18:24 → SUATTDRO 12-10 17:12

== ENCOUNTER 2021-01-30 16:03 | Inpatient (IN) ==
--- NOTE | 2021-01-30 17:46 | XRay Report ---
XR chest 2V PA/lateral CLINICAL HISTORY: Sepsis. COMPARISON STUDY: Chest radiograph January 23, 2021. FINDINGS: Lung volumes are normal. There is no pneumothorax or pleural effusion. Mild cardiomegaly is unchanged. No evidence for pulmonary edema. Stable interstitial thickening is unchanged. Linear righ t basilar opacities favor atelectasis or scarring. IMPRESSION: No acute cardiopulmonary findings. ACT 112: Negative or not required by law. Electronically signed by: Byron Gomes M.D. 01/30/2021 5:45 PM
[2021-01-30 18:13] LABS: Basophils # (auto) 0.03 K/uL (0-0.2); Basophils % (auto) 0.4 %; Eosinophils % (auto) 2.7 %; Hematocrit (blood only) 36.8 % (37-47); Hemoglobin 11.8 g/dL (12.0-16.0); Immature Granulocytes # (auto) 0.01 K/uL (0.00-0.02); Immature Granulocytes % (auto) 0.1 %; Lymphocytes # (auto) 1.84 K/uL (1.2-3.4); Lymphocytes % (auto) 24.5 %; Mean Corpuscular Hemoglobin 28.6 pg (25-34); Mean Corpuscular Hgb Conc 32.1 g/dL (32-36); Mean Corpuscular Volume 89.3 fL (80-100); Mean Platelet Volume 10.6 fL (7.4-10.4); Monocytes # (auto) 0.58 K/uL (0.11-0.59); Monocytes % (auto) 7.7 %; Neutrophils # (auto) 4.84 K/uL (1.4-6.5); Neutrophils % (auto) 64.6 %; Platelet Count 307 K/uL (130-400); RDW Coefficient of Variation 14.1 % (11.5-14.5); RDW Standard Deviation 46.5 fL (36.4-46.3); Red Blood Count 4.12 M/uL (4.2-5.4)
[2021-01-30 18:25] LABS: Partial Thromboplastin Time 25.3 Seconds (21.0-31.0); Prothrombin Time 10.4 Seconds (9.0-12.0)
[2021-01-30 18:57] LABS: Alanine Aminotransferase 20 U/L (12-78); Albumin Level 3.6 gm/dl (3.4-5.0); Aspartate Aminotransferase 14 U/L (15-37); BUN Creatinine Ratio 23.1 (10-20); Blood Urea Nitrogen 28 mg/dl (7-18); Calcium 9.2 mg/dl (8.5-10.1); Carbon Dioxide 28 mmol/L (21-32); Chloride 109 mmol/L (98-107); Est GFR (African American) 47.9 ml/min; Est GFR (Non-African American) 41.3 ml/min; Glucose 102 mg/dl (70-99); Magnesium 2.2 mg/dl (1.8-2.4); Potassium 4.3 mmol/L (3.5-5.1); Sodium 139 mmol/L (136-145)
[2021-01-30 19:02] LABS: Bacteria Urine Automated Negative (Negative); Bilirubin Urine Negative (Negative); Blood Urine Negative (Negative); Cast Urine Automated 0 /lpf (0-5); Color Urine Dark Yellow; Epithelial Cell Urine Auto 0-5 /lpf (0-5); Glucose Urine UA Negative (Negative); Ketones Urine Trace (Negative); Leukocyte Esterase Urine Negative (Negative); Nitrite Urine Negative (Negative); Protein Urine 3+ (Negative); RBC Urine Automated 0-4 /hpf (0-4); Specific Gravity Urine 1.025 (1.000-1.030); Urobilinogen Urine Negative (Negative); WBC Urine Automated 0 /hpf (0-5)
[2021-01-30 19:12] LABS: Albumin Globulin Ratio 0.9 (0.9-2); Alkaline Phosphatase 80 U/L (45-117); Bilirubin,Total 0.3 mg/dl (0.2-1); Globulin 4.1 gm/dl (2.5-4.0); Total Protein 7.7 gm/dl (6.4-8.2); Troponin I 0.067 ng/ml (0-0.045)
[2021-01-30 19:23] LABS: Appearance Urine Clear (Clear)
[2021-01-30] MEDS ORDERED: CEFDINIR 300 MG CAP PO STA (20:21)
[2021-01-30] MEDS ORDERED: LISINOPRIL/HCTZ 20/12.5MG 1 TAB TAB PO STA (20:21)
[2021-01-30] MEDS ORDERED: SODIUM CHLORIDE 0.9% 1000ML 500 ML IV ONE (20:22)
[2021-01-30] MEDS ORDERED: SODIUM CHLORIDE 0.9% 1000ML 1,000 ML IV STA (20:22)
--- NOTE | 2021-01-30 20:53 | Emergency Department Note ---
Impression & Plan Elevated troponin, Hypertension, Acute confusion ED Provider Note INFORMANT: Patient and daughter ED PROVIDER(S): Christos Grubbs MD CHIEF COMPLAINT: Confusion PLAN: Disposition: Admitted Condition: Good Outpatient prescription management: none Referral: None MEDICAL DECISION MAKING: Patient was brought by family because of confusion. They were concerned about possible UTI. The patient had a pansensitive E. coli and was treated with cefdinir. Urinalysis today is unremarkable. The patient was moderately hypertensive. CT imaging was negative. Covid testing negative. The patient's blood work did reveal mildly elevated troponin. She did have new septal Q waves on her ECG. The patient was given aspirin. The patient was fairly hypertensive and was given Nitropaste. Anticoagulation was deferred to internal medicine. In light of the change in mental status and abnormal cardiac testing further management in the hospital was felt to be appropriate. Consultation was made with Dr. Sheffield [facility] the [facility]. Patient was evaluated in the ER and admitted. Triage Nursing notes reviewed and agree them. Vital Signs: reviewed and remarkable for significant hypertension Differential diagnosis: Infection, hypoglycemia, electrolyte abnormalities, overdose, toxicologic, cardiac sources, intracerebral event, neurologic, trauma, as well as other pathologies. Diagnostics interpreted by me: ECG: Twelve-lead ECG reveals sinus bradycardia at 50 bpm. Incomplete right bundle branch block. Septal Q waves. When compared to 01/23/2021 the septal Q waves are new. Cardiac Monitoring: Cardiac monitoring ordered by me: The patient was placed on continuous cardiac monitoring and observed. It revealed a sinus bradycardic rhythm at 50 beats per minute without ectopy or evidence of dysrhythmia. Imaging studies: Chest x-ray. Findings: A chest x-ray was performed and revealed no pneumothorax, effusion, infiltrate, pulmonary edema, free air under the diaphragm, or wide mediastinum. Impression: No acute disease. Head CT: A noncontrast CT scan of the head was performed and was negative for tumor, fracture, intracranial hemorrhage, or other acute pathology. HPI: The patient is a 85year old female who presents to the Emergency Room with complaints of confusion. This started today and is noted per the daughter. They were concerned about a recurrent UTI. The patient is finishing cefdinir for an E. coli UTI. It was pansensitive. The patient also notes the following associated symptoms, occasional discomfort in her eyes. The patient has taken no new medication today for relieving factors. Current pain is rated as 0/10. Patient notes she had some discomfort in her eyes on the way here today. Daughter notes that she was not complaining about this over the last several days. Pt denies LOC, headache, fevers, chills, diaphoresis, visual changes, neck pain, chest pain, breathing difficulties, nausea, vomiting, abdominal pain, back pain, melena, hematochezia, urinary symptoms, numbness, weakness, lymphadenopathy, rash, or other complaints. ROS: See above HPI for pertinent positives & negatives. A total of 10 systems reviewed and were otherwise negative. PAST MEDICAL HISTORY:See Below , UTI, hypertension, CVA, non-STEMI PAST SURGICAL HISTORY:See Below, FAMILY HISTORY:See Below SOCIAL HISTORY:See Below, lives with daughter HOME MEDICATIONS:See Below ALLERGIES:See Below VITALS:See Below PHYSICAL EXAMINATION: GENERAL: Awake, alert, well-appearing, in no distress HENT: Normocephalic, atraumatic. Oropharynx unremarkable. EYES: Normal conjunctiva. Sclera non-icteric. PERRLA. EOMI. NECK: Inspection normal. Non-tender. Supple. No nuchal rigidity. FROM. No masses. RESPIRATORY: Clear to auscultation. No wheezes. No rales. Normal respiratory effort. CARDIAC: Bradycardic rate. Normal rhythm. No murmurs. No rubs. Extremities warm and well perfused. Pulses equal. No JVD. GI: Soft, non-distended. No tenderness to palpation. No rebound or guarding. No masses. RECTAL: Deferred. MUSCULOSKELETAL: Atraumatic. Chest examination reveals no tenderness. The back is symmetrical on inspection without obvious abnormality. There is no CVA tenderness to palpation. No joint edema. LOWER EXTREMITIES: Calves are equal size bilaterally and non-tender. Trace edema. No discoloration. NEURO: Normal sensorium. No sensory or motor deficits noted. Cranial nerves II through XII intact. No drift. Normal rapid alternating movements. SKIN: No rash or jaundice noted. Christos Grubbs MD Past Med/Surg History Medical History Chest pain Diabetes History of CVA with residual deficit HTN (hypertension) Hypertension Osteoarthritis of right knee Surgical History History of cataract surgery Family History Mother , age 69 with heart disease No problems noted. Father No problems noted. 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 Beliefs That Will Affect Care: None marital status: Current Living Situation: Family Current Living Situation Comment: Temporarly living with Daughter Taylor Feels Safe at Home: Yes Assistive Devices: Walker Allergies Allergies Allergy/AdvReac Type Severity Reaction Status Date / Time cefpodoxime [From Vantin] Allergy Unknown Unknown Verified 01/30/21 21:24 Sulfa (Sulfonamide Allergy Unknown Unknown Verified 01/30/21 21:24 Antibiotics) Home Meds Home Medications Medication Instructions Recorded Confirmed atorvastatin 40 mg tablet (Lipitor) 40 mg PO QAM 12/22/18 01/30/21 amlodipine 2.5 mg tablet 2.5 mg PO DAILY 03/11/20 01/30/21 levothyroxine 137 mcg tablet 137 mcg PO DAILY 03/11/20 01/30/21 aspirin 81 mg tablet,delayed 81 mg PO QAM 05/23/20 01/30/21 release isosorbide mononitrate 30 mg 30 mg PO QAM 05/23/20 01/30/21 tablet,extended release 24 hr metoprolol succinate 50 mg 50 mg PO QAM 05/23/20 01/30/21 tablet,extended release 24 hr escitalopram oxalate 5 mg tablet 5 mg PO DAILY 12/08/20 01/30/21 lisinopril 20 1 tab PO HS 01/23/21 01/30/21 mg-hydrochlorothiazide 12.5 mg tablet ibuprofen 100 mg tablet 0 mg PO Q6H PRN 01/30/21 01/30/21 Previous Rx's Medication Instructions Recorded clopidogrel 75 mg tablet 75 mg PO QAM #30 tab 01/06/18 nitroglycerin 0.4 mg sublingual 0.4 mg SUBLINGUAL UD PRN #14 tab 03/13/20 tablet (Nitrostat) melatonin 3 mg tablet 3 mg PO HS #30 tab 12/26/20 cefdinir 300 mg capsule 300 mg PO BID 10 Days #20 cap 01/23/21 Results & Data (ED) Vital Signs Vital Signs - 24 hr 01/30/21 16:25 01/30/21 20:11 01/30/21 20:12 Temperature 36.6 C Temperature Source Temporal Artery Scan Pulse Rate 58 L 50 L 53 L Pulse Rate [Radial] 50 L Pulse Rate from SpO2 Sensor 49 L Pulse Rhythm Regular Pulse Strength Normal Respiratory Rate 20 17 22 Respiratory Effort / Characteristics Non-Labored Respiratory Depth Normal Blood Pressure 200/74 H Blood Pressure [Right Arm] 200/74 H Blood Pressure Mean 116 Blood Pressure Mean [Right Arm] 116 Blood Pressure Position Sitting Blood Pressure Position [Right Arm] Lying Pulse Oximetry 97 98 97 Oxygen Delivery Method Room Air Room Air Room Air Sepsis Recent Fever Within 48 Hours No Sepsis New/Unexplained Change in Mental Status No Sepsis Action Taken by Nursing No Action Required 01/30/21 20:30 01/30/21 21:30 01/30/21 22:00 Temperature Temperature Source Pulse Rate 49 L 56 L 59 L Pulse Rate [Radial] Pulse Rate from SpO2 Sensor 48 L 54 L 60 Pulse Rhythm Pulse Strength Respiratory Rate 20 16 20 Respiratory Effort / Characteristics Respiratory Depth Blood Pressure 171/77 H 202/72 H 194/76 H Blood Pressure [Right Arm] Blood Pressure Mean 108 115 115 Blood Pressure Mean [Right Arm] Blood Pressure Position Blood Pressure Position [Right Arm] Pulse Oximetry 97 98 94 Oxygen Delivery Method Room Air Room Air Room Air Sepsis Recent Fever Within 48 Hours Sepsis New/Unexplained Change in Mental Status Sepsis Action Taken by Nursing 01/30/21 22:30 Temperature Temperature Source Pulse Rate 48 L Pulse Rate [Radial] Pulse Rate from SpO2 Sensor 51 L Pulse Rhythm Pulse Strength Respiratory Rate 20 Respiratory Effort / Characteristics Respiratory Depth Blood Pressure 151/98 H Blood Pressure [Right Arm] Blood Pressure Mean 115 Blood Pressure Mean [Right Arm] Blood Pressure Position Blood Pressure Position [Right Arm] Pulse Oximetry 97 Oxygen Delivery Method Room Air Sepsis Recent Fever Within 48 Hours Sepsis New/Unexplained Change in Mental Status Sepsis Action Taken by Nursing Laboratory Data Result diagrams: 01/30/21 17:54 01/30/21 17:54 Lab Results 01/30/21 01/30/21 01/30/21 Range/Units 17:54 17:54 17:54 WBC 7.50 (4.8-10.8) K/uL RBC 4.12 L (4.2-5.4) M/uL Hgb 11.8 L (12.0-16.0) g/dL Hct 36.8 L (37-47) % MCV 89.3 (80-100) fL MCH 28.6 (25-34) pg MCHC 32.1 (32-36) g/dL RDW Std Deviation 46.5 H (36.4-46.3) fL RDW Coeff of Michaela 14.1 (11.5-14.5) % Plt Count 307 (130-400) K/uL MPV 10.6 H (7.4-10.4) fL Immature Gran % (Auto) 0.1 % Neut % (Auto) 64.6 % Lymph % (Auto) 24.5 % [place] % (Auto) 7.7 % Eos % (Auto) 2.7 % Baso % (Auto) 0.4 % Neut # (Auto) 4.84 (1.4-6.5) K/uL Lymph # (Auto) 1.84 (1.2-3.4) K/uL [place] # (Auto) 0.58 (0.11-0.59) K/uL Eos # (Auto) 0.20 (0-0.5) K/uL Baso # (Auto) 0.03 (0-0.2) K/uL Immature Gran # (Auto) 0.01 (0.00-0.02) K/uL PT 10.4 (9.0-12.0) Seconds INR 1.0 (0.9-1.1) APTT 25.3 (21.0-31.0) Seconds PTT Ratio 1.0 Sodium 139 (136-145) mmol/L Potassium 4.3 (3.5-5.1) mmol/L Chloride 109 H (98-107) mmol/L Carbon Dioxide 28 (21-32) mmol/L Anion Gap 2.0 L (3-11) BUN 28 H (7-18) mg/dl Creatinine 1.19 (0.6-1.2) mg/dl Est Cr Clr Drug Dosing Not Reportable Est GFR ( Amer) 47.9 ml/min Est GFR (Non-Af Amer) 41.3 ml/min BUN/Creatinine Ratio 23.1 H (10-20) Glucose 102 H (70-99) mg/dl Calcium 9.2 (8.5-10.1) mg/dl Magnesium 2.2 (1.8-2.4) mg/dl Total Bilirubin 0.3 (0.2-1) mg/dl AST 14 L (15-37) U/L ALT 20 (12-78) U/L Alkaline Phosphatase 80 (45-117) U/L Total Creatine Kinase (26-192) U/L Troponin I 0.067 H* (0-0.045) ng/ml Total Protein 7.7 (6.4-8.2) gm/dl Albumin 3.6 (3.4-5.0) gm/dl Globulin 4.1 H (2.5-4.0) gm/dl Albumin/Globulin Ratio 0.9 (0.9-2) Urine Color Urine Appearance (Clear) Urine pH (4.5-7.5) Ur Specific [place] (1.000-1.030) Urine Protein (Negative) Urine Glucose (UA) (Negative) Urine Ketones (Negative) Urine Blood (Negative) Urine Nitrite (Negative) Urine Bilirubin (Negative) Urine Urobilinogen (Negative) Ur Leukocyte Esterase (Negative) Urine WBC (Auto) (0-5) /hpf Urine RBC (Auto) (0-4) /hpf U Hyaline Cast (Auto) (0-5) /lpf U Epithel Cells (Auto) (0-5) /lpf Urine Bacteria (Auto) (Negative) SARS-CoV-2, RNA, NAAT (NEGATIVE) 01/30/21 01/30/21 01/30/21 Range/Units 17:54 17:59 20:40 WBC (4.8-10.8) K/uL RBC (4.2-5.4) M/uL Hgb (12.0-16.0) g/dL Hct (37-47) % MCV (80-100) fL MCH (25-34) pg MCHC (32-36) g/dL RDW Std Deviation (36.4-46.3) fL RDW Coeff of Michaela (11.5-14.5) % Plt Count (130-400) K/uL MPV (7.4-10.4) fL Immature Gran % (Auto) % Neut % (Auto) % Lymph % (Auto) % [place] % (Auto) % Eos % (Auto) % Baso % (Auto) % Neut # (Auto) (1.4-6.5) K/uL Lymph # (Auto) (1.2-3.4) K/uL [place] # (Auto) (0.11-0.59) K/uL Eos # (Auto) (0-0.5) K/uL Baso # (Auto) (0-0.2) K/uL Immature Gran # (Auto) (0.00-0.02) K/uL PT (9.0-12.0) Seconds INR (0.9-1.1) APTT (21.0-31.0) Seconds PTT Ratio Sodium (136-145) mmol/L Potassium (3.5-5.1) mmol/L Chloride (98-107) mmol/L Carbon Dioxide (21-32) mmol/L Anion Gap (3-11) BUN (7-18) mg/dl Creatinine (0.6-1.2) mg/dl Est Cr Clr Drug Dosing Est GFR ( Amer) ml/min Est GFR (Non-Af Amer) ml/min BUN/Creatinine Ratio (10-20) Glucose (70-99) mg/dl Calcium (8.5-10.1) mg/dl Magnesium (1.8-2.4) mg/dl Total Bilirubin (0.2-1) mg/dl AST (15-37) U/L ALT (12-78) U/L Alkaline Phosphatase (45-117) U/L Total Creatine Kinase 88 (26-192) U/L Troponin I (0-0.045) ng/ml Total Protein (6.4-8.2) gm/dl Albumin (3.4-5.0) gm/dl Globulin (2.5-4.0) gm/dl Albumin/Globulin Ratio (0.9-2) Urine Color Dark Yellow Urine Appearance Clear (Clear) Urine pH 5.0 (4.5-7.5) Ur Specific [place] 1.025 (1.000-1.030) Urine Protein 3+ H (Negative) Urine Glucose (UA) Negative (Negative) Urine Ketones Trace H (Negative) Urine Blood Negative (Negative) Urine Nitrite Negative (Negative) Urine Bilirubin Negative (Negative) Urine Urobilinogen Negative (Negative) Ur Leukocyte Esterase Negative (Negative) Urine WBC (Auto) 0 (0-5) /hpf Urine RBC (Auto) 0-4 (0-4) /hpf U Hyaline Cast (Auto) 0 (0-5) /lpf U Epithel Cells (Auto) 0-5 (0-5) /lpf Urine Bacteria (Auto) Negative (Negative) SARS-CoV-2, RNA, NAAT NEGATIVE (NEGATIVE) Administered Medications Sodium Chloride (Nss 1000ml) 1,000 mls @ 125 mls/hr IV .Q8H STA Stop: 01/31/21 04:21 Last Admin: 01/30/21 21:29 Dose: 125 mls/hr Documented by: [id number] Sodium Chloride (Nss 1000ml) 1,000 mls @ 100 mls/hr IV .Q10H GRAHAM Stop: 01/31/21 21:28 Last Admin: 01/31/21 02:30 Dose: 100 mls/hr Documented by: [id number] Discontinued Medications Acetaminophen (Acetaminophen 500 Mg Tab) Confirm Administered Dose 1,000 mg .ROUTE .STK-MED ONE Stop: 01/30/21 22:32 Last Admin: 01/30/21 22:33 Dose: 1,000 mg Documented by: [id number] Aspirin (Aspirin Chew 324 Mg) 324 mg PO NOW STA Stop: 01/30/21 21:21 Last Admin: 01/30/21 21:27 Dose: 324 mg Documented by: [id number] Cefdinir (Cefdinir 300 Mg Cap) 300 mg PO ONE STA Stop: 01/30/21 20:22 Last Admin: 01/30/21 20:35 Dose: 300 mg Documented by: [id number] Lisinopril/HCTZ (Lisinopril/Hctz 20/12.5mg 1 Tab Tab) 1 tab PO NOW STA Stop: 01/30/21 20:22 Last Admin: 01/30/21 20:35 Dose: 1 tab Documented by: [id number] Sodium Chloride (Nss 1000ml) 500 mls @ 999 mls/hr IV .Q31M ONE Stop: 01/30/21 20:52 Last Infusion: 01/30/21 21:09 Dose: 0 mls/hr Documented by: [id number] Admin: 01/30/21 20:38 Dose: 999 mls/hr Documented by: [id number] Nitroglycerin (Nitroglycerin 2% Ointment 30gm Tube) 0.5 inch EXT NOW STA Stop: 01/30/21 21:21 Last Admin: 01/30/21 21:29 Dose: 0.5 inch Documented by: [id number] Imaging Data Radiologist's Impression: Chest X-Ray 01/30/21 16:30 XR chest 2V PA/lateral CLINICAL HISTORY: Sepsis. COMPARISON STUDY: Chest radiograph January 23, 2021. FINDINGS: Lung volumes are normal. There is no pneumothorax or pleural effusion. Mild cardiomegaly is unchanged. No evidence for pulmonary edema. Stable interstitial thickening is unchanged. Linear right basilar opacities favor atel ectasis or scarring. IMPRESSION: No acute cardiopulmonary findings. ACT 112: Negative or not required by law. Electronically signed by: Byron Gomes M.D. 01/30/2021 5:45 PM Discharge Plan Visit Data Chief Complaint: Illness Stated Complaint: CONFUSION SX,UTI DIAGNOSIS 01-23,REF BY DOC ED Provider: Christos Grubbs Discharge Problem: Elevated troponin, Hypertension, Acute confusion Discharge Instructions Interventions: ED Discharge Assessment Last Done: 01/31/21 01:23
[2021-01-30] MEDS ORDERED: ASPIRIN CHEW 324 MG PO STA (21:20)
[2021-01-30] MEDS ORDERED: NITROGLYCERIN 2% OINTMENT 30GM TUBE EXT STA (21:20)
--- NOTE | 2021-01-30 22:02 | History & Physical Report ---
Date of Service January 30, 2021 Assessment & Plan (1) Acute confusion: Plan: Patient is an 85 year old female with PMHx DM2, HTN, CVA, recent UTI, who presents with complaint of worsening confusion, concerning for resistant UTI. Patient is pleasant, though mildly confused in regards for her reasoning for being in the hospital. Acute Confusion -Initial concern for continued/worsening UTI, though fortunately urine in ED relatively clear -CT head stat read without signs of acute stroke as well -May be secondary to acute dehydration as patients BUN on admission was slightly elevated at 28 -Received 500mL bolus NSS in the ED, will continue hydration with NSS 100ml/hr x2L B/L Thigh pain -?secondary to falls, though strength intact and no bruising noted. -Daughter notes that the pain has been chronic -Will check CK and if elevated will hold statin UTI -UA in ED fairly clean -Complete course of Cefdinir, currently day 09/07 Elevated Troponin -Patient with mildly elevated troponin 0.067 in ED, repeat in 6 hours -EKG with sinus ariana, incomplete RBBB, q waves V1-2 which were not present on EKG 01/23/21 -Fortunately, without chest pain, will continue to monitor -May be secondary as well to patient's hypertension on admission with BP 202/72 HTN -Continue home Lisinopril-HCTZ -Continue home Isosorbide mononitrate -Hold home metoprolol for bradycardia Dispo: Med/Surg Telemetry FEN: HH diet, NSS 100ml/hr x2L DVT: SCDs Code: Full (2) Elevated troponin: History of Present Illness Chief Complaint: Confusion Primary Care Provider: Jaguar Kelly Patient is an 85 year old female with PMHx DM2, HTN, CVA, recent UTI, who presents with complaint of worsening confusion, concerning for resistant UTI. Patient is pleasant, though mildly confused in regards for her reasoning for being in the hospital. She notes that she was having some pain, though unable to specify where, earlier in the day and told her daughter who brought her in. Currently patient notes b/l thigh pain, but states that this has been ongoing and not the reason she she came. Discussion with the patients daughter Arlyn, she noted that her mother was more confused today than usual and when asked about her confusion became more angry and belligerent. She notes that around 11AM today the patient was talking about "walking home now" despite already being in her home. She had concerns that this was due to a resistant UTI as the patient had similar symptoms 1 week prior before being diagnosed with a UTI and started on Cefdinir. Patient is currently on day 09/07 of her antibiotic course. Arlyn also notes that since January 07 the patient has also falling about 3 times, but they believe the 2 most recent events were related to the UTI. She states that during these 2 recent falls as well the patient had somewhat missed where she was attempting to sit and Arlyn had actually had a hold of the patient for the slow descent to the ground. Patient currently denies any NVD, SOB, Chest pain, abdominal pain, fever, chills, dizziness, dysuria, hematuria. Med Hx: DM2, HTN, CVA, recent UTI Surg Hx: cataract surgery Soc HX: denies tobacco, alcohol, illicit drug use Allergies Allergy/AdvReac Type Severity Reaction Status Date / Time cefpodoxime [From Vantin] Allergy Unknown Unknown Verified 01/30/21 21:24 Sulfa (Sulfonamide Allergy Unknown Unknown Verified 01/30/21 21:24 Antibiotics) Home Medications Medication Instructions Recorded Confirmed Type clopidogrel 75 mg tablet 75 mg PO QAM #30 tab 01/06/18 01/30/21 Rx atorvastatin 40 mg tablet (Lipitor) 40 mg PO QAM 12/22/18 01/30/21 History amlodipine 2.5 mg tablet 2.5 mg PO DAILY 03/11/20 01/30/21 History levothyroxine 137 mcg tablet 137 mcg PO DAILY 03/11/20 01/30/21 History nitroglycerin 0.4 mg sublingual 0.4 mg SUBLINGUAL UD PRN #14 tab 03/13/20 01/30/21 Rx tablet (Nitrostat) aspirin 81 mg tablet,delayed 81 mg PO QAM 05/23/20 01/30/21 History release isosorbide mononitrate 30 mg 30 mg PO QAM 05/23/20 01/30/21 History tablet,extended release 24 hr metoprolol succinate 50 mg 50 mg PO QAM 05/23/20 01/30/21 History tablet,extended release 24 hr escitalopram oxalate 5 mg tablet 5 mg PO DAILY 12/08/20 01/30/21 History melatonin 3 mg tablet 3 mg PO HS #30 tab 12/26/20 01/23/21 Rx cefdinir 300 mg capsule 300 mg PO BID 10 Days #20 cap 01/23/21 01/30/21 Rx lisinopril 20 1 tab PO HS 01/23/21 01/30/21 History mg-hydrochlorothiazide 12.5 mg tablet ibuprofen 100 mg tablet 0 mg PO Q6H PRN 01/30/21 01/30/21 History Past Med/Surg History Medical History Chest pain Diabetes History of CVA with residual deficit HTN (hypertension) Hypertension Osteoarthritis of right knee Surgical History History of cataract surgery Family History Mother , age 69 with heart disease No problems noted. Father No problems noted. Other Family history non-contributory Social History Smoking Status: Never smoker Second Hand Exposure: Yes; Hx Alcohol Use: No Hx Substance Use: No Preferred Language: Faroese Communication Ability: Effective Deckhand Fishing Vessel Required: No Beliefs That Will Affect Care: None marital status: Current Living Situation: Family Current Living Situation Comment: Temporarly living with Daughter Taylor Feels Safe at Home: Yes Assistive Devices: Walker Review of Systems Review of Systems: All systems reviewed & are unremarkable except as noted in Subjective Physical Exam Constitutional: well developed and well nourished; no acute distress Eyes: normal visual kaur by confrontation, PERRL, EOM intact bilaterally and reactive pupils ENMT: external ear and nose normal, oropharynx normal Neck: trachea midline, no thyromegaly Respiratory: normal respiratory effort, lungs clear to auscultation Cardiovascular: Rate/Rhythm: + bradycardic Heart Sounds: normal S1 and normal S2; no murmur Extremities: no calf tenderness Gastrointestinal (Abdomen): normal bowel sounds, soft, nontender, no hepatosplenomegaly Musculoskeletal: Head/Neck/Chest: normocephalic and head atraumatic Patient notes slight TTP of the thighs b/l She has 5/5 muscle strength with hip flexion and extension b/l, though notes p ain with hip flexion of the R leg Skin: no rashes, warm and dry Neurologic: moves all extremities and awake Psychiatric: Orientation: alert, oriented to person, oriented to place and cooperative; + not oriented to time Results & Data Results & Data ([facility]) Vital Signs (Past 12 Hours) Vital Signs Temp Pulse Pulse Resp BP Pulse Ox 01/30/21 20:12 50 L 17 200/74 H 98 01/30/21 20:11 50 L 17 98 01/30/21 16:25 36.6 C 58 L 20 97 Laboratory Results Laboratory Results - last 24 hr 01/30/21 01/30/21 01/30/21 17:54 17:54 17:54 WBC 7.50 RBC 4.12 L Hgb 11.8 L Hct 36.8 L MCV 89.3 MCH 28.6 MCHC 32.1 RDW Std Deviation 46.5 H RDW Coeff of Michaela 14.1 Plt Count 307 MPV 10.6 H Immature Gran % (Auto) 0.1 Neut % (Auto) 64.6 Lymph % (Auto) 24.5 [place] % (Auto) 7.7 Eos % (Auto) 2.7 Baso % (Auto) 0.4 Neut # (Auto) 4.84 Lymph # (Auto) 1.84 [place] # (Auto) 0.58 Eos # (Auto) 0.20 Baso # (Auto) 0.03 Immature Gran # (Auto) 0.01 PT 10.4 INR 1.0 APTT 25.3 PTT Ratio 1.0 Sodium 139 Potassium 4.3 Chloride 109 H Carbon Dioxide 28 Anion Gap 2.0 L BUN 28 H Creatinine 1.19 Est Cr Clr Drug Dosing Not Reportable Est GFR ( Amer) 47.9 Est GFR (Non-Af Amer) 41.3 BUN/Creatinine Ratio 23.1 H Glucose 102 H Calcium 9.2 Magnesium 2.2 Total Bilirubin 0.3 AST 14 L ALT 20 Alkaline Phosphatase 80 Total Creatine Kinase Troponin I 0.067 H* Total Protein 7.7 Albumin 3.6 Globulin 4.1 H Albumin/Globulin Ratio 0.9 Urine Color Urine Appearance Urine pH Ur Specific [place] Urine Protein Urine Glucose (UA) Urine Ketones Urine Blood Urine Nitrite Urine Bilirubin Urine Urobilinogen Ur Leukocyte Esterase Urine WBC (Auto) Urine RBC (Auto) U Hyaline Cast (Auto) U Epithel Cells (Auto) Urine Bacteria (Auto) SARS-CoV-2, RNA, NAAT 01/30/21 01/30/21 01/30/21 17:54 17:59 20:40 WBC RBC Hgb Hct MCV MCH MCHC RDW Std Deviation RDW Coeff of Michaela Plt Count MPV Immature Gran % (Auto) Neut % (Auto) Lymph % (Auto) [place] % (Auto) Eos % (Auto) Baso % (Auto) Neut # (Auto) Lymph # (Auto) [place] # (Auto) Eos # (Auto) Baso # (Auto) Immature Gran # (Auto) PT INR APTT PTT Ratio Sodium Potassium Chloride Carbon Dioxide Anion Gap BUN Creatinine Est Cr Clr Drug Dosing Est GFR ( Amer) Est GFR (Non-Af Amer) BUN/Creatinine Ratio Glucose Calcium Magnesium Total Bilirubin AST ALT Alkaline Phosphatase Total Creatine Kinase 88 Troponin I Total Protein Albumin Globulin Albumin/Globulin Ratio Urine Color Dark Yellow Urine Appearance Clear Urine pH 5.0 Ur Specific [place] 1.025 Urine Protein 3+ H Urine Glucose (UA) Negative Urine Ketones Trace H Urine Blood Negative Urine Nitrite Negative Urine Bilirubin Negative Urine Urobilinogen Negative Ur Leukocyte Esterase Negative Urine WBC (Auto) 0 Urine RBC (Auto) 0-4 U Hyaline Cast (Auto) 0 U Epithel Cells (Auto) 0-5 Urine Bacteria (Auto) Negative SARS-CoV-2, RNA, NAAT NEGATIVE Diagnostic Findings Preliminary Findings Only See Final Report For Complete Findings CT HEAD: Comparison: CT head 01/23/21 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 Associated spray artifact limits evaluation. Involutional and chronic small vessel ischemic changes. Chronic lacunar infarct left melara radiata/putamen. No ICH, mass-effect, or edema. Intracranial atherosclerosis. No skull fracture. Trace mucosal thickening in the ethmoids and left maxillary sinus. Surgical clips noted in the superior right orbit. Radiologist: Tanner Piper M.D. Study ready at 21:27 and initial results transmitted at 21:31 Supervising Physician Co-Signing Physician Notes Patient seen and examined, chart reviewed, case discussed with Dr. Porter and I agree with the assessment and plan as above. Patient presents with confusion, bilateral thigh pain and elevated troponin Exam - patient afebrile, HD stable, episodic bradycardia with rest, anxious in appearance Skin - intact HEENT - NC/AT, PERRL, MMM, Neck supple Heart - +S1/S2, regular Lungs - CTA Abd - +BS, soft, NT/ND Ext- pain with thigh palpation, some muscle cramping Labs and images reviewed. Chronically elevated troponin CK ordered Assessment/Plan -IVF, trend troponin -Check CK -Remainder of plan as above Resident Activity Tracking Resident Involvement: Resident Care Provided Care Provided: Adult Hospital Medicine
[2021-01-30] MEDS ORDERED: ACETAMINOPHEN 500 MG TAB ONE (22:31)
[2021-01-31] MEDS ORDERED: ONDANSETRON INJ 2 MG/ML 2 ML VIAL IV PRN (01:29)
[2021-01-31] MEDS: SODIUM CHLORIDE 0.9% 1000ML 1,000 ML IV SCH ×2 (02:30→16:16)
--- NOTE | 2021-01-31 05:19 | Billing Data ---
Date of Service January 30, 2021 Coding Level of Care Code INT OBSERVATION CARE 50M LVL 2
--- NOTE | 2021-01-31 06:59 | CT Scan Report ---
CT head/brain wo con CLINICAL HISTORY: AMS COMPARISON STUDY: 01/23/2021 CT DOSE: 614.27 mGy.cm TECHNIQUE: Standard CT of the Brain was performed without IV contrast. A dose lowering technique was utilized adhering to the principles of ALARA. FINDINGS: Extraaxial space: There is no evidence for subdural hematoma. There are no extra-axial fluid collecti ons. Ventricles and cisterns: The ventricles are again mildly to moderately dilated bilaterally. There is no evidence for midline shift or mass effect. Parenchyma: There is no subarachnoid or intraparenchymal hemorrhage. There is no evidence for an acu te infarct or cerebral edema. Old compression or infarct is again seen on the left. There is mild cer ebral cortical atrophy and decreased attenuation in the periventricular white matter representing rem ote small vessel disease. There are no gross mass lesions. There is again imaging artifact from previ ous aneurysm clipping at the [place] on the right. Osseous structures: There is no evidence for an acute fracture. Mild mucosal thickening is seen invol ving the floors of the maxillary antra and ethmoid air cells bilaterally. The remaining visualized pa ranasal sinuses are clear. The mastoid air cells are clear bilaterally. Soft tissues: There is no evidence for focal soft tissue swelling. IMPRESSION: No acute intracerebral pathology. Cerebral cortical atrophy, remote small vessel disease and old left lacunar infarct are again seen. Mild chronic sinusitis. ACT 112: Negative or not required by law. Electronically signed by: Stanford Galaviz M.D. 01/31/2021 6:58 AM
[2021-01-31] MEDS: ACETAMINOPHEN 325 MG TAB PO PRN (07:15)
--- NOTE | 2021-01-31 07:16 | Hospitalist Progress Note ---
Date of Service January 31, 2021 Assessment & Plan (1) Acute confusion: Plan: Patient is an 85 year old female with PMHx DM2, HTN, CVA, recent UTI, who presents with complaint of worsening confusion in the context of recent UTI treatment. Patient is pleasant, though mildly confused in regards for her reasoning for being in the hospital. Acute Confusion -Patient lives at home and daughter reporting worsening confusion throughout the day on 01/30 -Of note, patient recently being treated for UTI as outpatient -- on cefdinir day 09/07 (end 02/03) -Initial concern for continued/worsening UTI, though fortunately urine in ED relatively clear and patient asymptomatic. -CT head stat read without signs of acute stroke -Primarily suspect secondary to dehydration atop preexisting underlying dementia. -H&H stable, VSS -- obtain XRs hips given ongoing pain -Monitor UOP, BMP, CBCd LEFT Hip Pain (Atop Chronic B/L Hip Pain) -- with evidence of L knee contusion -Reportedly has half-way history of b/l hip pain; however, on exam, much more TTP over L side and unable to fully extend leg at knee. -Suspect component of this may be due to recent falls that patient has sustained -Daughter notes that the pain has been chronic -- physical exam unremarkable -CK normal, noted that patient is on statin, continue for now -Obtain XR hips, L knee -Pain control -PT,OT Falls at Home / Concern for Gait Instability -Patient reportedly lives at home with daughter, has had a few falls over the last month (also in context of recent UTI) -Ambulatory status unclear at this time -Consult PT, OT -- appreciate insight on need for ambulatory support, disposition UTI -UA in ED fairly clean -Complete course of Cefdinir, currently day 09/07 Elevated Troponin -No complaints of chest pain, shortness of breath over recent history or presently -Patient with mildly elevated troponin 0.067 screened in ED, now downtrending -EKG with sinus ariana and incomplete RBBB on arrival --> subsequently resolved on repeat ECG. No acute concerns. -Suspect secondary to hypertension on admission with BP 202/72 HTN -Continue home Lisinopril-HCTZ -Continue home Isosorbide mononitrate -Metoprolol initially held sec to bradycardia (?chronic based on prior ECGs) -- resume given ongoing HTN Dispo: Med/Surg Telemetry FEN: diet, NSS 100ml/hr x2L DVT: SCDs Code: Full (2) Elevated troponin: Admission and Anticipated Discharge Date Admission Date: January 31, 2021 Supervising Physician Co-Signing Physician Notes Patient seen and examined with PGY 2 Dr. Wolf. Agree with history, exam findings, assessment and plan of care as outlined. In brief, Mae is an 85-year-old female with history significant for diabetes, hypertension, CVA and recent urinary tract infection that presented with confusion who is admitted with an episode of worsening confusion. Today, she is very confused and is repeating herself. She reports that she is having some pain along the edge of her hip on the left. Denies chest pain or dyspnea. Vital signs and nursing notes reviewed. She is oriented to self and current events, she can name the president. She is unable to completely extend the knees. There is ecchymosis over the inferior portion of the left knee. She is tender over the lateral left hip. She is nontender over the left knee. Labs and imaging reviewed. 1. Confusion. May be secondary to dehydration versus waxing and waning of the underlying dementia. No evidence of ongoing infectious etiology. 2. Left hip pain. Given the tenderness over the lateral hip and her inability to voluntarily move the leg, pelvis and hip radiographs were obtained. No evidence of fracture. There are degenerative changes in the hip, SI joint and the visualized lumbar spine. 3. Left knee contusion. Radiographs show degenerative changes. No fracture. 4. Recurrent falls. PT/OT consulted. Appreciate assistance with disposition planning. 5. Urinary tract infection. Cefdinir was started prior to admission. She will finish the antibiotic course on February 02. 6. Elevated troponin. Likely secondary to demand ischemia. Troponin is now downtrending. 7. Hypertension. Home lisinopril and HCTZ were continued. Resumed home metoprolol which was initially held due to bradycardia overnight. Home isosorbide mononitrate also continued. Disposition: Awaiting Physical Therapy and Occupational Therapy evaluation. Subjective NAEO. Feeling well this morning. Can't exactly describe what brought her in. Very pleasant throughout interaction. No pain. No CP/palpitations/SOB. No n/v. Appetite strong. Review of Systems Review of Systems: as per HPI Physical Exam Physical Exam: General: Pleasant 85-year-old female in NAD. HEENT: NCAT. Eyes - Sclera are white, anicteric, and without injection. PERRL. EOMs display full ROM bilaterally. Mouth - MMM with no tonsillar edema or exudates. Cardiac: Normal rate and regular rhythm; S1 and S2 present with no murmurs, rubs, or gallops. Pulmonary: Good respiratory effort with symmetric expansion of the chest. No use of accessory muscles. Lungs were clear to auscultation bilaterally with no crackles or wheezes. Abdominal: Normoactive bowel sounds. Abdomen was soft, nondistended, and non- tender to palpation. Extremities: Bruising noted over the LEFT knee. Varicose veins throughout LLE. TTP at the lateroposterior LEFT thigh with radiation to the knee. Distal perfusion intact, DP 2+. L hip strength 4/5, unable to fully extend knee. Ankle strength 5/5 b/l. Neuro: CN II-XII grossly in tact. UE/LE strength 5/5. Sensation to light touch grossly intact. Psych: Well-developed, well-nourished, appropriately dressed for occasion. Behavior is cooperative and appropriate. Affect is WNL. Insight is appropriate. Results & Data Results & Data ([facility]) Vital Signs (Past 12 Hours) Vital Signs Pulse Pulse Resp BP BP Pulse Ox Pulse Ox 01/31/21 06:46 48 L 18 171/52 H 95 01/31/21 06:21 52 L 18 177/68 H 96 01/31/21 03:24 60 18 133/66 97 01/31/21 01:58 57 L 18 119/85 97 01/31/21 01:38 50 L 18 119/85 96 96 01/30/21 22:30 48 L 20 151/98 H 97 01/30/21 22:00 59 L 20 194/76 H 94 01/30/21 21:30 56 L 16 202/72 H 98 01/30/21 20:30 49 L 20 171/77 H 97 01/30/21 20:12 53 L 50 L 22 200/74 H 200/74 H 97 01/30/21 20:11 50 L 17 98 Resident Activity Tracking Resident Involvement: Resident Care Provided Care Provided: Adult [facility] Medicine
[2021-01-31] MEDS: LEVOTHYROXINE SODIUM 137 MCG TABLET PO SCH (07:49)
[2021-01-31 08:22] LABS: Basophils # (auto) 0.03 K/uL (0-0.2); Basophils % (auto) 0.6 %; Eosinophils # (auto) 0.14 K/uL (0-0.5); Eosinophils % (auto) 2.9 %; Hematocrit (blood only) 32.3 % (37-47); Hemoglobin 10.6 g/dL (12.0-16.0); Lymphocytes # (auto) 1.36 K/uL (1.2-3.4); Lymphocytes % (auto) 28.3 %; Mean Corpuscular Hgb Conc 32.8 g/dL (32-36); Mean Corpuscular Volume 88.5 fL (80-100); Mean Platelet Volume 10.5 fL (7.4-10.4); Monocytes # (auto) 0.45 K/uL (0.11-0.59); Monocytes % (auto) 9.4 %; Neutrophils # (auto) 2.82 K/uL (1.4-6.5); Neutrophils % (auto) 58.8 %; Platelet Count 239 K/uL (130-400); RDW Standard Deviation 45.6 fL (36.4-46.3); Red Blood Count 3.65 M/uL (4.2-5.4)
[2021-01-31] MEDS: amLODIPine BESYLATE 5 MG TAB PO SCH (08:33)
[2021-01-31] MEDS: ASPIRIN 81 MG ECTAB PO SCH (08:34)
[2021-01-31] MEDS: ATORVASTATIN 40 MG TAB PO SCH (08:35)
[2021-01-31] MEDS: CEFDINIR 300 MG CAP PO SCH ×2 (08:36→21:29)
[2021-01-31] MEDS: CLOPIDOGREL BISULFATE 75 MG TAB PO SCH (08:36)
[2021-01-31] MEDS: ESCITALOPRAM OXALATE 10 MG TAB PO SCH (08:37)
[2021-01-31] MEDS: ISOSORBIDE MONO EXTENDED REL 30 MG TABCR PO SCH (08:38)
[2021-01-31 09:04] LABS: BUN Creatinine Ratio 20.8 (10-20); Calcium 8.8 mg/dl (8.5-10.1); Est GFR (African American) 65.3 ml/min; Est GFR (Non-African American) 56.4 ml/min; Potassium 3.8 mmol/L (3.5-5.1)
[2021-01-31] MEDS ORDERED: ACETAMINOPHEN 325 MG TAB PO STA (09:42)
--- NOTE | 2021-01-31 10:29 | Electrocardiogram Report ---
Test Reason : Blood Pressure : / mmHG Vent. Rate : 050 BPM Atrial Rate : 050 BPM P-R Int : 196 ms QRS Dur : 094 ms QT Int : 458 ms P-R-T Axes : 077 -22 069 degrees QTc Int : 417 ms Sinus bradycardia Incomplete right bundle branch block Abnormal ECG When compared with ECG of 23-JAN-2021 19:41, Nonspecific T wave abnormality no longer evident in Inferior leads Confirmed by Lloyd Caputo ([id number]) on 01/31/2021 10:29:31 AM Referred By: REFERRED SELF Confirmed By:Liu Caputo
--- NOTE | 2021-01-31 18:29 | XRay Report ---
LEFT KNEE 2 VIEWS CLINICAL HISTORY: Left knee pain. Bruising. FINDINGS: Crosstable AP and crosstable lateral views of the left knee are obtained. The examination i s significantly degraded by inability to properly position the patient. No prior studies are availabl e for comparison at the time of dictation. The skeletal structures are osteopenic. No fracture is miquel ntified. Degenerative joint space narrowing is noted. There is no joint effusion. The overlying soft tissues are normal as imaged. There is mild atherosclerotic calcification of the popliteal artery. IMPRESSION: No acute bony abnormality is identified. Electronically signed by: Carlos Atwood M.D. 01/31/2021 6:28 PM
--- NOTE | 2021-01-31 18:32 | XRay Report ---
SINGLE VIEW PELVIS; 2 VIEWS RIGHT HIP; 2 VIEWS LEFT HIP CLINICAL HISTORY: Left hip pain. FINDINGS: An AP view of the pelvis with AP and frog-leg views of the right hip as well as AP and cros stable lateral views of the left hip are obtained. Correlation is made with pelvic CT dated 09/07/2018 . The examination is significantly degraded by inability to properly position the patient. The skelet al structures are osteopenic. There is no radiographic evidence of acute fracture involving the hips or bony pelvis. Mild to moderate degenerative joint space narrowing and arthritic change is seen in t he hips. Lumbosacral spondylosis is partially visualized. There is degenerative sclerosis of the sacr oiliac joints. The overlying soft tissues are normal as visualized. IMPRESSION: No acute bony abnormality is identified on this degraded examination. Electronically signed by: Carlos Atwood M.D. 01/31/2021 6:31 PM
[2021-01-31] MEDS ORDERED: PNEUMOCOCCAL POLYSACCHARIDES 25 MCG/0.5 ML VIAL/SYR IM ONE (19:46)
[2021-01-31] MEDS ORDERED: INFLUENZA VACCINE HIGH DOSE PF 65+ 0.7 ML SYR IM ONE (19:46)
[2021-01-31] MEDS: LISINOPRIL/HCTZ 20/12.5MG 1 TAB TAB PO SCH (21:30)
[2021-02-01] MEDS: LEVOTHYROXINE SODIUM 137 MCG TABLET PO SCH (06:24)
[2021-02-01 07:29] LABS: Basophils # (auto) 0.01 K/uL (0-0.2); Basophils % (auto) 0.2 %; Eosinophils # (auto) 0.15 K/uL (0-0.5); Eosinophils % (auto) 2.4 %; Hemoglobin 12.1 g/dL (12.0-16.0); Immature Granulocytes # (auto) 0.01 K/uL (0.00-0.02); Immature Granulocytes % (auto) 0.2 %; Lymphocytes # (auto) 1.11 K/uL (1.2-3.4); Lymphocytes % (auto) 17.5 %; Mean Corpuscular Hemoglobin 28.9 pg (25-34); Mean Corpuscular Hgb Conc 33.6 g/dL (32-36); Mean Corpuscular Volume 86.1 fL (80-100); Mean Platelet Volume 10.4 fL (7.4-10.4); Monocytes # (auto) 0.73 K/uL (0.11-0.59); Monocytes % (auto) 11.5 %; Neutrophils # (auto) 4.35 K/uL (1.4-6.5); Neutrophils % (auto) 68.2 %; Platelet Count 277 K/uL (130-400); RDW Coefficient of Variation 13.7 % (11.5-14.5); Red Blood Count 4.18 M/uL (4.2-5.4); White Blood Count 6.36 K/uL (4.8-10.8)
[2021-02-01 08:04] LABS: BUN Creatinine Ratio 13.8 (10-20); Calcium 9.3 mg/dl (8.5-10.1); Creatinine Clr Calc Pharmacy 41.7 ml/min; Est GFR (African American) 59.8 ml/min; Est GFR (Non-African American) 51.6 ml/min; Potassium 3.5 mmol/L (3.5-5.1)
[2021-02-01] MEDS: CEFDINIR 300 MG CAP PO SCH ×2 (08:13→20:43)
[2021-02-01] MEDS: ASPIRIN 81 MG ECTAB PO SCH (08:13)
[2021-02-01] MEDS: ESCITALOPRAM OXALATE 10 MG TAB PO SCH (08:13)
[2021-02-01] MEDS: ATORVASTATIN 40 MG TAB PO SCH (08:13)
[2021-02-01] MEDS: CLOPIDOGREL BISULFATE 75 MG TAB PO SCH (08:13)
[2021-02-01] MEDS: amLODIPine BESYLATE 5 MG TAB PO SCH (08:14)
[2021-02-01] MEDS: ISOSORBIDE MONO EXTENDED REL 30 MG TABCR PO SCH (08:14)
[2021-02-01] MEDS: METOPROLOL SUCC 50MG EXT REL TAB PO SCH (08:15)
--- NOTE | 2021-02-01 12:29 | Electrocardiogram Report ---
Test Reason : Blood Pressure : / mmHG Vent. Rate : 071 BPM Atrial Rate : 071 BPM P-R Int : 186 ms QRS Dur : 094 ms QT Int : 410 ms P-R-T Axes : 056 -26 037 degrees QTc Int : 445 ms Normal sinus rhythm with sinus arrhythmia Normal ECG When compared with ECG of 31-JAN-2021 10:03, T wave amplitude has increased in Anterior leads Confirmed by Kojo Mallory ([id number]) on 02/01/2021 12:29:18 PM Referred By: REFERRED SELF Confirmed By:Kojo Mallory
--- NOTE | 2021-02-01 17:57 | Hospitalist Progress Note ---
Date of Service February 01, 2021 Assessment & Plan (1) Acute confusion: Plan: Patient is an 85 year old female with PMHx DM2, HTN, CVA, recent UTI, who presents with complaint of worsening confusion in the context of recent UTI treatment. Patient is pleasant, though mildly confused in regards for her reasoning for being in the hospital. Acute Confusion -Patient lives at home and daughter reporting worsening confusion throughout the day on 01/30 -Of note, patient recently being treated for UTI as outpatient -- currently on cefdinir day (end date 02/02/21) -Initial concern for continued/worsening UTI, though fortunately urine in ED relatively clear and patient asymptomatic. -CT head stat read without signs of acute stroke -Primarily suspect secondary to dehydration atop preexisting underlying dementia. -H&H stable, VSS -- obtain XRs hips given ongoing pain -Monitor UOP, BMP, CBC LEFT Hip Pain, improved (Atop Chronic B/L Hip Pain) -- with evidence of L knee contusion -Reportedly has correction history of b/l hip pain -CK normal, noted that patient is on statin, continue for now -L knee XR 01/31: no acute bony abnormalities -L hip XR 01/31: osteopenia, OA, no acute fx -Continue w/ pain control -Continue PT,OT Falls at Home / Concern for Gait Instability -Patient reportedly lives at home with daughter, has had a few falls over the last month (also in context of recent UTI) -Ambulatory status unclear at this time -Consult PT, OT -- PT recommending rehab placement; OT recommending SNF placement UTI -UA in ED fairly clean -Complete course of Cefdinir, currently day 11/08 Elevated Troponin -No complaints of chest pain, shortness of breath over recent history or presently -Patient with mildly elevated troponin 0.067 screened in ED, now downtrending -EKG with sinus ariana and incomplete RBBB on arrival --> subsequently resolved on repeat ECG. No acute concerns. -Suspect secondary to hypertension on admission with BP 202/72 HTN -Continue home Lisinopril-HCTZ -Continue home Isosorbide mononitrate -Continue amlodipine 2.5mg -Metoprolol initially held sec to bradycardia (?chronic based on prior ECGs) -- resumed on 01/31 given ongoing HTN Dispo: Med/Surg FEN: HH diet, NSS 100ml/hr x2L DVT: SCDs Code: Full (2) Elevated troponin: Admission and Anticipated Discharge Date Admission Date: February 01, 2021 Supervising Physician Co-Signing Physician Notes Patient seen and examined with PGY 2 Dr. Anderson. Agree with history, exam findings, assessment and plan of care as outlined. In brief, Mae is an 85-year-old female with history significant for diabetes, hypertension, CVA and recent urinary tract infection that presented with confusion who is admitted with an episode of worsening confusion. Today, she is very confused. Continues to repeat herself and is now worried that her shoes are at the door. Vital signs and nursing notes reviewed. She is oriented to self and place. Labs and imaging reviewed. 1. Confusion. May be secondary to dehydration versus waxing and waning of the underlying dementia. No evidence of ongoing infectious etiology. 2. Left hip pain. Given the tenderness over the lateral hip and her inability to voluntarily move the leg, pelvis and hip radiographs were obtained. No evidence of fracture. There are degenerative changes in the hip, SI joint and the visualized lumbar spine. 3. Left knee contusion. Radiographs show degenerative changes. No fracture. 4. Recurrent falls. PT/OT consulted-recommending SNF placement. 5. Urinary tract infection. Cefdinir was started prior to admission. She will finish the antibiotic course on February 02. 6. Elevated troponin. Likely secondary to demand ischemia. Troponin is now downtrending. 7. Hypertension. Home Lisinopril, HCTZ, and amlodipine continued. Resumed home metoprolol which was initially held due to bradycardia overnight. Home isosorbide mononitrate also continued. Disposition: PT/OT recommending rehab. Awaiting placement. Subjective Patient seen and evaluated at bedside this morning. No acute events overnight. States that she is overall feeling well. Patient is pleasant but confused during the interview, asking for her "shoes over there" (outside of the room). Patient is fixated on needing her shoes. However, she does deny any pain and notes that previous complaint of left hip pain has improved. Denies CP, SOB, WAGGONER, dizziness, or lightheadedness. Reports good appetite w/o abdominal pain, nausea, or vomiting. Review of Systems Review of Systems: as per HPI Physical Exam Physical Exam: GENERAL: No acute distress. Vital signs reviewed as above. EYES: EOMI. Anicteric sclerae. HENT: Moist mucous membranes. RESPIRATORY: Clear to auscultation bilaterally. No wheezing, rales, or rhonchi. CARDIOVASCULAR: Regular rate and rhythm. ABDOMEN: Soft, non-tender and non-distended. Normal bowel sounds. SKIN: Warm, dry. NEUROLOGIC: A/O x3 but not oriented to situation (thinks that she is in the hospital visiting a cousin). No focal neurological deficits. PSYCHIATRIC: Cooperative. Appropriate mood and affect. Results & Data Results & Data ([facility]) Vital Signs (Past 12 Hours) Vital Signs Temp Pulse Resp BP Pulse Ox 02/01/21 16:18 36.4 C L 67 16 162/61 H 94 02/01/21 07:54 36.5 C 65 16 177/78 H 95 Laboratory Results 02/01/21 02/01/21 Range/Units 06:45 06:45 WBC 6.36 (4.8-10.8) K/uL RBC 4.18 L (4.2-5.4) M/uL Hgb 12.1 (12.0-16.0) g/dL Hct 36.0 L (37-47) % MCV 86.1 (80-100) fL MCH 28.9 (25-34) pg MCHC 33.6 (32-36) g/dL RDW Std Deviation 43.0 (36.4-46.3) fL RDW Coeff of Michaela 13.7 (11.5-14.5) % Plt Count 277 (130-400) K/uL MPV 10.4 (7.4-10.4) fL Immature Gran % (Auto) 0.2 % Neut % (Auto) 68.2 % Lymph % (Auto) 17.5 % [place] % (Auto) 11.5 % Eos % (Auto) 2.4 % Baso % (Auto) 0.2 % Neut # (Auto) 4.35 (1.4-6.5) K/uL Lymph # (Auto) 1.11 L (1.2-3.4) K/uL [place] # (Auto) 0.73 H (0.11-0.59) K/uL Eos # (Auto) 0.15 (0-0.5) K/uL Baso # (Auto) 0.01 (0-0.2) K/uL Immature Gran # (Auto) 0.01 (0.00-0.02) K/uL Sodium 139 (136-145) mmol/L Potassium 3.5 (3.5-5.1) mmol/L Chloride 106 (98-107) mmol/L Carbon Dioxide 22 (21-32) mmol/L Anion Gap 11.0 (3-11) BUN 14 (7-18) mg/dl Creatinine 0.99 (0.6-1.2) mg/dl Est Cr Clr Drug Dosing 41.7 ml/min Est GFR ( Amer) 59.8 ml/min Est GFR (Non-Af Amer) 51.6 ml/min BUN/Creatinine Ratio 13.8 (10-20) Glucose 103 H (70-99) mg/dl Calcium 9.3 (8.5-10.1) mg/dl Resident Activity Tracking Resident Involvement: Resident Care Provided Care Provided: Adult [facility]
[2021-02-01] MEDS: LISINOPRIL/HCTZ 20/12.5MG 1 TAB TAB PO SCH (20:44)
[2021-02-02] MEDS: LEVOTHYROXINE SODIUM 137 MCG TABLET PO SCH (06:20)
[2021-02-02] MEDS: CLOPIDOGREL BISULFATE 75 MG TAB PO SCH (09:34)
[2021-02-02] MEDS: METOPROLOL SUCC 50MG EXT REL TAB PO SCH (09:35)
[2021-02-02] MEDS: ASPIRIN 81 MG ECTAB PO SCH (09:35)
[2021-02-02] MEDS: amLODIPine BESYLATE 5 MG TAB PO SCH (09:35)
[2021-02-02] MEDS: ISOSORBIDE MONO EXTENDED REL 30 MG TABCR PO SCH (09:35)
[2021-02-02] MEDS: ATORVASTATIN 40 MG TAB PO SCH (09:36)
[2021-02-02] MEDS: ESCITALOPRAM OXALATE 10 MG TAB PO SCH (09:36)
[2021-02-02 10:49] LABS: Basophils # (auto) 0.02 K/uL (0-0.2); Basophils % (auto) 0.3 %; Eosinophils % (auto) 3.2 %; Hematocrit (blood only) 39.4 % (37-47); Hemoglobin 12.9 g/dL (12.0-16.0); Lymphocytes # (auto) 1.58 K/uL (1.2-3.4); Lymphocytes % (auto) 24.9 %; Mean Corpuscular Hemoglobin 28.3 pg (25-34); Mean Corpuscular Hgb Conc 32.7 g/dL (32-36); Mean Corpuscular Volume 86.4 fL (80-100); Mean Platelet Volume 10.7 fL (7.4-10.4); Monocytes # (auto) 0.66 K/uL (0.11-0.59); Monocytes % (auto) 10.4 %; Neutrophils # (auto) 3.88 K/uL (1.4-6.5); Neutrophils % (auto) 61.2 %; Platelet Count 300 K/uL (130-400); RDW Coefficient of Variation 13.9 % (11.5-14.5); RDW Standard Deviation 43.8 fL (36.4-46.3); Red Blood Count 4.56 M/uL (4.2-5.4); White Blood Count 6.34 K/uL (4.8-10.8)
[2021-02-02 11:25] LABS: BUN Creatinine Ratio 19.4 (10-20); Calcium 9.4 mg/dl (8.5-10.1); Creatinine Clr Calc Pharmacy 31.3 ml/min; Est GFR (African American) 43.4 ml/min; Est GFR (Non-African American) 37.5 ml/min; Potassium 3.7 mmol/L (3.5-5.1)
--- NOTE | 2021-02-02 15:54 | Hospitalist Progress Note ---
Date of Service February 02, 2021 Assessment & Plan (1) Acute confusion: Plan: Patient is an 85 year old female with PMHx DM2, HTN, CVA, recent UTI, who presents with complaint of worsening confusion in the context of recent UTI treatment. Patient is pleasant, though mildly confused in regards for her reasoning for being in the hospital. Acute Confusion -Patient lives at home and daughter reporting worsening confusion throughout the day on 01/30 -Of note, patient recently being treated for UTI as outpatient. Completed 10 day course of cefdinir while admitted on 02/02 -CT head stat read without signs of acute stroke -Suspect that the confusion may be secondary to dehydration vs waxing and waning of her underlying dementia -H&H stable, VSS -Monitor UOP, BMP, CBC LEFT Hip Pain, improved (Atop Chronic B/L Hip Pain) -- with evidence of L knee contusion -Reportedly has penitentiary history of b/l hip pain -CK normal -Noted that patient is on statin, continue for now -L knee XR 01/31: no acute bony abnormalities -L hip XR 01/31: osteopenia, OA, no acute fx -Continue w/ pain control -Continue PT,OT Falls at Home / Concern for Gait Instability -Patient reportedly lives at home with daughter, has had a few falls over the last month (also in context of recent UTI) -Ambulatory status unclear at this time -Consult PT, OT -- PT recommending rehab placement; OT recommending SNF placement UTI -UA in ED fairly clean -Completed course of Cefdinir today, 02/02 -No evidence of ongoing infectious etiology Elevated Troponin -No complaints of chest pain, shortness of breath over recent history or presently -Patient with mildly elevated troponin 0.067 screened in ED, now downtrending -EKG with sinus ariana and incomplete RBBB on arrival --> subsequently resolved on repeat ECG. No acute concerns. -Suspect secondary to hypertension on admission with BP 202/72 HTN -Continue home Lisinopril-HCTZ -Continue home Isosorbide mononitrate -Metoprolol initially held sec to bradycardia (?chronic based on prior ECGs) -- resumed on 01/31 given ongoing HTN Dispo: Med/Surg FEN: HH diet, NSS 100ml/hr x2L DVT: SCDs Code: Full (2) Elevated troponin: Admission and Anticipated Discharge Date Admission Date: February 01, 2021 Supervising Physician Co-Signing Physician Notes Patient seen and examined with PGY 2 Dr. Anderson. Agree with history, exam findings, assessment and plan of care as outlined. In brief, Mae is an 85-year-old female with history significant for diabetes, hypertension, CVA and recent urinary tract infection that presented with confusion who is admitted with an episode of worsening confusion. Today, she had just woken up. No complaints. Vital signs and nursing notes reviewed. She is oriented to self and place. Labs and imaging reviewed. 1. Confusion. May be secondary to dehydration versus waxing and waning of the underlying dementia. No evidence of ongoing infectious etiology. 2. Left hip pain. Given the tenderness over the lateral hip and her inability to voluntarily move the leg, pelvis and hip radiographs were obtained. No evidence of fracture. There are degenerative changes in the hip, SI joint and the visualized lumbar spine. 3. Left knee contusion. Radiographs show degenerative changes. No fracture. 4. Recurrent falls. PT/OT consulted-recommending SNF placement. 5. Urinary tract infection. Cefdinir was started prior to admission--now completed. 6. Elevated troponin. Likely secondary to demand ischemia. Troponin is now downtrending. 7. Hypertension. Home Lisinopril, HCTZ, and amlodipine continued. Resumed home metoprolol which was initially held due to bradycardia overnight. Home isosorbide mononitrate also continued. Disposition: PT/OT recommending rehab. Medically stable for discharge. Awaiting placement. Subjective Patient seen and evaluated at bedside this morning. No acute events overnight. Per nursing, patient was just woken up prior to our arrival to the room. Patient states that she is overall feeling well and that she slept well overnight. She has no specific complaints or concerns at this time. Denies CP, SOB, WAGGONER, dizziness, or lightheadedness. Reports good appetite w/o abdominal pain, nausea, or vomiting. Review of Systems Review of Systems: as per HPI Physical Exam Physical Exam: GENERAL: No acute distress. Vital signs reviewed as above. EYES: EOMI. Anicteric sclerae. HENT: Moist mucous membranes. RESPIRATORY: Clear to auscultation bilaterally. No wheezing, rales, or rhonchi. CARDIOVASCULAR: Regular rate and rhythm. ABDOMEN: Soft, non-tender and non-distended. Normal bowel sounds. SKIN: Warm, dry. NEUROLOGIC: A/O x3 but not oriented to situation (unsure of why she is in the hospital). No focal neurological deficits. PSYCHIATRIC: Cooperative. Appropriate mood and affect. Results & Data Results & Data ([facility]) Vital Signs (Past 12 Hours) Vital Signs Temp Pulse Resp BP Pulse Ox 02/02/21 15:35 36.6 C 81 18 108/60 97 02/02/21 08:28 36.7 C 62 18 167/74 H 93 Laboratory Results 02/02/21 02/02/21 Range/Units 10:11 10:11 WBC 6.34 (4.8-10.8) K/uL RBC 4.56 (4.2-5.4) M/uL Hgb 12.9 (12.0-16.0) g/dL Hct 39.4 (37-47) % MCV 86.4 (80-100) fL MCH 28.3 (25-34) pg MCHC 32.7 (32-36) g/dL RDW Std Deviation 43.8 (36.4-46.3) fL RDW Coeff of Michaela 13.9 (11.5-14.5) % Plt Count 300 (130-400) K/uL MPV 10.7 H (7.4-10.4) fL Immature Gran % (Auto) 0.0 % Neut % (Auto) 61.2 % Lymph % (Auto) 24.9 % [place]ton % (Auto) 10.4 % Eos % (Auto) 3.2 % Baso % (Auto) 0.3 % Neut # (Auto) 3.88 (1.4-6.5) K/uL Lymph # (Auto) 1.58 (1.2-3.4) K/uL Charlton # (Auto) 0.66 H (0.11-0.59) K/uL Eos # (Auto) 0.20 (0-0.5) K/uL Baso # (Auto) 0.02 (0-0.2) K/uL Immature Gran # (Auto) 0.00 (0.00-0.02) K/uL Sodium 137 (136-145) mmol/L Potassium 3.7 (3.5-5.1) mmol/L Chloride 104 (98-107) mmol/L Carbon Dioxide 25 (21-32) mmol/L Anion Gap 8.0 (3-11) BUN 25 H D (7-18) mg/dl Creatinine 1.29 H D (0.6-1.2) mg/dl Est Cr Clr Drug Dosing 31.3 ml/min Est GFR ( Amer) 43.4 ml/min Est GFR (Non-Af Amer) 37.5 ml/min BUN/Creatinine Ratio 19.4 (10-20) Glucose 137 H (70-99) mg/dl Calcium 9.4 (8.5-10.1) mg/dl Resident Activity Tracking Resident Involvement: Resident Care Provided Care Provided: Adult [facility]
[2021-02-02] MEDS: LISINOPRIL/HCTZ 20/12.5MG 1 TAB TAB PO SCH (19:11)
[2021-02-03] MEDS: LEVOTHYROXINE SODIUM 137 MCG TABLET PO SCH (05:34)
[2021-02-03] MEDS: ASPIRIN 81 MG ECTAB PO SCH (08:23)
[2021-02-03] MEDS: ESCITALOPRAM OXALATE 10 MG TAB PO SCH (08:24)
[2021-02-03] MEDS: CLOPIDOGREL BISULFATE 75 MG TAB PO SCH (08:24)
[2021-02-03] MEDS: amLODIPine BESYLATE 5 MG TAB PO SCH (08:24)
[2021-02-03] MEDS: ATORVASTATIN 40 MG TAB PO SCH (08:24)
[2021-02-03] MEDS: METOPROLOL SUCC 50MG EXT REL TAB PO SCH (08:25)
[2021-02-03] MEDS: ISOSORBIDE MONO EXTENDED REL 30 MG TABCR PO SCH (08:25)
--- NOTE | 2021-02-03 11:16 | Hospitalist Progress Note ---
Date of Service February 03, 2021 Assessment & Plan (1) Acute confusion: Plan: Patient is an 85 year old female with PMHx DM2, HTN, CVA, recent UTI, who presents with complaint of worsening confusion in the context of recent UTI treatment. Patient is pleasant, though mildly confused in regards for her reasoning for being in the hospital. Acute Confusion -Patient lives at home and daughter reporting worsening confusion throughout the day on 01/30 -Of note, patient recently being treated for UTI as outpatient. Completed 10 day course of cefdinir while admitted on 02/02 - reporting now urinary symptoms -CT head stat read without signs of acute stroke -Suspect that the confusion may be secondary to dehydration vs waxing and waning of her underlying dementia -H&H stable, VSS -Monitor UOP, BMP, CBC Chronic Kidney Disease Stage III: - Cr bumped to 1.29 however baseline appears around 1.1-1.3 - Will hold Lisinopril/HCTZ and recheck in AM LEFT Hip Pain, improved (Atop Chronic B/L Hip Pain) -- with evidence of L knee contusion -Reportedly has intermediate history of b/l hip pain -CK normal -Noted that patient is on statin, continue for now -L knee XR 01/31: no acute bony abnormalities -L hip XR 01/31: osteopenia, OA, no acute fx -Continue w/ pain control -Continue PT,OT Falls at Home / Concern for Gait Instability -Patient reportedly lives at home with daughter, has had a few falls over the last month (also in context of recent UTI) -Consult PT, OT -- PT recommending rehab placement; OT recommending SNF placement UTI -UA in ED fairly clean -Completed course of Cefdinir today, 02/02 -No evidence of ongoing infectious etiology Elevated Troponin -No complaints of chest pain, shortness of breath over recent history or presently -Patient with mildly elevated troponin 0.067 screened in ED, now downtrending - review of past labs and chronically has elevated troponins -EKG with sinus ariana and incomplete RBBB on arrival --> subsequently resolved on repeat ECG. No acute concerns. -Suspect secondary to hypertension on admission with BP 202/72 - some demand ischemia HTN -Hold Lisinopril-HCTZ given bump in renal function - BMP in AM -Continue home Isosorbide mononitrate -Metoprolol initially held sec to bradycardia (?chronic based on prior ECGs) -- resumed on 01/31 given ongoing HTN and no bradycardia on vital checks Plan: Awaiting rehab placement. It appears reading past notes her baseline confusion seems to be to situation so maybe at baseline - will update daughter today Admission and Anticipated Discharge Date Admission Date: February 01, 2021 Subjective Reports feeling well. Could not recall why she was in the hospital. Got tearful when talking about how she was going to get out of the hospital as she didn't know how to coordinate that. She felt better knowing we would coordinate this for her. She does state she knows she doesn't drink a lot of fluids and states people always mention this to her. She is tolerating a diet and verbalizes no complaints Review of Systems Review of Systems: All systems reviewed & are unremarkable except as noted in Subjective Physical Exam Physical Exam: PHYSICAL EXAM General Appearance: WDWN in NAD who is A&O x person and place but not to situation HEENT: Head is normocephalic/atraumatic; Hearing grossly intact; Mucous membranes moist Neck: Supple; Trachea midline; Neg JVD Heart: RRR with no M/G/R Lungs: CTA in all lung kuar bilaterally; Respirations unlabored; Neg accessory muscle use Abdomen: Soft, non-tender, non-distended; Positive BS x 4 quadrants Extremities: Neg cyanosis or edema Neurological: Speech clear; Gross motor/sensory function intact; Neg focal neurologic deficits Psychiatric: Appropriate mood/affect but does get tearful when uncertain how she is going to get out of the hospital but quickly resolved with reassurance that we will handle that piece Skin: Normal Color; Warm/Dry Results & Data Results & Data ([facility]) Vital Signs (Past 12 Hours) Vital Signs Temp Pulse Resp BP Pulse Ox 02/03/21 07:59 36.5 C 61 18 127/73 95 PG Care Time/CCT Total # of Minutes Spent Total Time Spent with Patient: Total time spent is greater than 50% in coordination of care (as documented) at patient's floor/unit and/or counseling patient: Coding Level of Care Code 49550 Subseq Hosp Care Lvl 3 Diagnoses Acute confusion R41.0
[2021-02-04] MEDS: LEVOTHYROXINE SODIUM 137 MCG TABLET PO SCH (06:12)
[2021-02-04] MEDS: ISOSORBIDE MONO EXTENDED REL 30 MG TABCR PO SCH (07:38)
[2021-02-04] MEDS: METOPROLOL SUCC 50MG EXT REL TAB PO SCH (07:38)
[2021-02-04] MEDS: amLODIPine BESYLATE 5 MG TAB PO SCH (07:38)
[2021-02-04] MEDS: CLOPIDOGREL BISULFATE 75 MG TAB PO SCH (07:39)
[2021-02-04] MEDS: ASPIRIN 81 MG ECTAB PO SCH (07:39)
[2021-02-04] MEDS: ESCITALOPRAM OXALATE 10 MG TAB PO SCH (07:39)
[2021-02-04] MEDS: ATORVASTATIN 40 MG TAB PO SCH (07:39)
[2021-02-04 08:58] LABS: BUN Creatinine Ratio 31.6 (10-20); Calcium 8.7 mg/dl (8.5-10.1); Creatinine Clr Calc Pharmacy 23.8 ml/min; Est GFR (African American) 31.1 ml/min; Est GFR (Non-African American) 26.8 ml/min; Potassium 3.9 mmol/L (3.5-5.1)
[2021-02-04] MEDS ORDERED: METOPROLOL SUCC 25MG EXT REL TAB PO SCH (09:00)
[2021-02-04] MEDS ORDERED: SODIUM CHLORIDE 0.9% 1000ML 1,000 ML IV SCH (09:15)
--- NOTE | 2021-02-04 15:25 | Hospitalist Progress Note ---
Date of Service February 04, 2021 Assessment & Plan (1) Acute confusion: Plan: Patient is an 85 year old female with PMHx DM2, HTN, CVA, recent UTI, who presents with complaint of worsening confusion in the context of recent UTI treatment. Patient is pleasant, though mildly confused in regards for her reasoning for being in the hospital. Acute Confusion -Patient lives at home and daughter reporting worsening confusion throughout the day on 01/30 -Of note, patient recently being treated for UTI as outpatient. Completed 10 day course of cefdinir while admitted on 02/02 - reporting no urinary symptoms -CT head stat read without signs of acute stroke -Suspect that the confusion may be secondary to dehydration vs waxing and waning of her underlying dementia -- Discussed with daughter who reports lack of oral hydration can quickly change her mentation then she will improve - need prompting to drink fluids -- Does enjoy coffee, ice cream, chocolate milk, lemonade, ice tea - can provide these to help facilitate more hydration -H&H stable, VSS -Monitor UOP, BMP, CBC Chronic Kidney Disease Stage III: - Cr bumped to 1.7 however baseline appears around 1.1-1.3 - Will hold Lisinopril/HCTZ and recheck in AM - Give gentle hydration and encourage oral hydration LEFT Hip Pain, improved (Atop Chronic B/L Hip Pain) -- with evidence of L knee contusion -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 -CK normal -Noted that patient is on statin, continue for now -L knee XR 01/31: no acute bony abnormalities -L hip XR 01/31: osteopenia, OA, no acute fx -Continue w/ pain control -Continue PT,OT Falls at Home / Concern for Gait Instability -Patient lives at home with daughter, has had a few falls over the last month (also in context of recent UTI) -Consult PT, OT -- PT recommending rehab placement; OT recommending SNF placement UTI -UA in ED fairly clean -Completed course of Cefdinir on 02/02 -No evidence of ongoing infectious etiology Elevated Troponin -No complaints of chest pain, shortness of breath over recent history or presently -Patient with mildly elevated troponin 0.067 screened in ED, now downtrending - review of past labs and chronically has elevated troponins -EKG with sinus ariana and incomplete RBBB on arrival --> subsequently resolved on repeat ECG. No acute concerns. -Suspect secondary to hypertension on admission with BP 202/72 - some demand ischemia HTN -Hold Lisinopril-HCTZ given bump in renal function - BMP in AM -- Discussed with daughter to split the medication (once Cr improved) to control BP; maybe with HCTZ PRN for leg swelling -Continue home Isosorbide mononitrate -Metoprolol initially held sec to bradycardia (?chronic based on prior ECGs) -- resumed on 01/31 given ongoing HTN and no bradycardia on vital checks Plan: Awaiting rehab placement. Possible bed tomorrow. Appears at baseline mentation which confusion does worsen in afternoon which is normal. Patient would be medically suitable for D/C pending bed Admission and Anticipated Discharge Date Admission Date: February 01, 2021 Subjective Patient is resting in bed with no complaints today. Ate well for breakfast. Denies any pain. No urinary symptoms. She is alert and oriented to self and place but forgetful in regards to why she is here. Less tearful today as she seems to get this way when she is uncertain of things. Tends to get more confused in the afternoons. Updated daughter over the phone today. Review of Systems Review of Systems: All systems reviewed & are unremarkable except as noted in Subjective Physical Exam Physical Exam: PHYSICAL EXAM General Appearance: WDWN in NAD who is A&O x person and place but not to situation HEENT: Head is normocephalic/atraumatic; Hearing grossly intact; Mucous membranes moist Neck: Supple; Trachea midline; Neg JVD Heart: RRR with no M/G/R Lungs: CTA in all lung kaur bilaterally; Respirations unlabored; Neg accessory muscle use Abdomen: Soft, non-tender, non-distended; Positive BS x 4 quadrants Extremities: Neg cyanosis or edema Neurological: Speech clear; Gross motor/sensory function intact; Neg focal neurologic deficits Psychiatric: Appropriate mood/affect Skin: Normal Color; Warm/Dry Results & Data Results & Data ([facility]) Vital Signs (Past 12 Hours) Vital Signs Temp Pulse Resp BP Pulse Ox 02/04/21 07:54 36.5 C 60 18 124/73 96 PG Care Time/CCT Total # of Minutes Spent Total Time Spent with Patient: Total time spent is greater than 50% in coordination of care (as documented) at patient's floor/unit and/or counseling patient: Coding Level of Care Code 51634 Subseq Hosp Care Lvl 3 Diagnoses Acute confusion R41.0
[2021-02-05] MEDS: ACETAMINOPHEN 325 MG TAB PO PRN ×2 (01:56→06:19)
[2021-02-05] MEDS: LEVOTHYROXINE SODIUM 137 MCG TABLET PO SCH (06:16)
[2021-02-05] MEDS: amLODIPine BESYLATE 5 MG TAB PO SCH (07:32)
[2021-02-05] MEDS: ESCITALOPRAM OXALATE 10 MG TAB PO SCH (07:33)
[2021-02-05] MEDS: CLOPIDOGREL BISULFATE 75 MG TAB PO SCH (07:34)
[2021-02-05] MEDS: METOPROLOL SUCC 50MG EXT REL TAB PO SCH (07:35)
[2021-02-05] MEDS: ASPIRIN 81 MG ECTAB PO SCH (07:35)
[2021-02-05] MEDS: ATORVASTATIN 40 MG TAB PO SCH (07:38)
[2021-02-05] MEDS: ISOSORBIDE MONO EXTENDED REL 30 MG TABCR PO SCH (07:39)
[2021-02-05] MEDS ORDERED: IBUPROFEN 600 MG TAB PO STA (08:21)
[2021-02-05 08:39] LABS: BUN Creatinine Ratio 32.2 (10-20); Calcium 8.9 mg/dl (8.5-10.1); Creatinine Clr Calc Pharmacy 27.3 ml/min; Est GFR (African American) 36.8 ml/min; Est GFR (Non-African American) 31.7 ml/min; Potassium 4.2 mmol/L (3.5-5.1)
--- NOTE | 2021-02-05 17:52 | Hospitalist Progress Note ---
Date of Service February 05, 2021 Assessment & Plan (1) Acute confusion: Plan: Patient is an 85 year old female with PMHx DM2, HTN, CVA, recent UTI, who presents with complaint of worsening confusion in the context of recent UTI treatment. Patient is pleasant, though mildly confused in regards for her reasoning for being in the hospital. Acute Confusion: AT BASELINE -Patient lives at home and daughter reporting worsening confusion throughout the day on 01/30 -Of note, patient recently being treated for UTI as outpatient. Completed 10 day course of cefdinir while admitted on 02/02 - reporting no urinary symptoms -CT head stat read without signs of acute stroke -Suspect that the confusion may be secondary to dehydration vs waxing and waning of her underlying dementia -- Discussed with daughter who reports lack of oral hydration can quickly change her mentation then she will improve - need prompting to drink fluids -- Does enjoy coffee, ice cream, chocolate milk, lemonade, ice tea - can provide these to help facilitate more hydration -H&H stable, VSS -Monitor UOP, BMP, CBC Chronic Kidney Disease Stage III: - Cr bumped to 1.7 and improved with some hydration - baseline appears around 1.1-1.3 - Will hold Lisinopril/HCTZ and recheck in AM - Encourage oral hydration LEFT Hip Pain, improved (Atop Chronic B/L Hip Pain) -- with evidence of L knee contusion -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 -CK normal -Noted that patient is on statin, continue for now -L knee XR 01/31: no acute bony abnormalities -L hip XR 01/31: osteopenia, OA, no acute fx -Continue w/ pain control -Continue PT,OT Falls at Home / Concern for Gait Instability -Patient lives at home with daughter, has had a few falls over the last month (also in context of recent UTI) -Consult PT, OT -- PT recommending rehab placement; OT recommending SNF placement UTI -UA in ED fairly clean -Completed course of Cefdinir on 02/02 -No evidence of ongoing infectious etiology Elevated Troponin -No complaints of chest pain, shortness of breath over recent history or pres ently -Patient with mildly elevated troponin 0.067 screened in ED, now downtrending - review of past labs and chronically has elevated troponins -EKG with sinus ariana and incomplete RBBB on arrival --> subsequently resolved on repeat ECG. No acute concerns. -Suspect secondary to hypertension on admission with BP 202/72 - some demand ischemia HTN -Hold Lisinopril-HCTZ given bump in renal function - BMP in AM -- Discussed with daughter to consider splitting the medication (once Cr improved) to control BP; maybe with HCTZ PRN for leg swelling -Continue home Isosorbide mononitrate -Metoprolol initially held sec to bradycardia (?chronic based on prior ECGs) -- resumed on 01/31 given ongoing HTN and very minimal moments of HR in 50s Plan: Awaiting rehab placement. Appears at baseline mentation which confusion does worsen in afternoon which is normal. Patient would be medically suitable for D/C pending bed - Updated daughter on the phone on 02/04 Admission and Anticipated Discharge Date Admission Date: February 01, 2021 Subjective Patient reports feeling well today. Seen in the later afternoon which it is common for her to get more confused. She was standing at the bedside and luckily was talking with the family in bed one. Went over to check on her and she was very steadily standing but was able to easily redirect to sit back down. She stated she was planning to go to [facility] today. Once told she was in the hospital she seemed to realize where she was but still was hoping to go to [facility] tomorrow. She has been calm, cooperative, and pleasant Review of Systems Review of Systems: All systems reviewed & are unremarkable except as noted in Subjective Physical Exam Physical Exam: PHYSICAL EXAM General Appearance: WDWN in NAD who is A&O x person with intermittent confusion to time and place HEENT: Head is normocephalic/atraumatic; Hearing grossly intact; Mucous membranes moist Neck: Supple; Trachea midline; Neg JVD Heart: RRR with no M/G/R Lungs: CTA in all lung kaur bilaterally; Respirations unlabored; Neg accessory muscle use Abdomen: Soft, non-tender, non-distended; Positive BS x 4 quadrants Extremities: Neg cyanosis or edema Neurological: Speech clear; Gross motor/sensory function intact; Neg focal neurologic deficits Psychiatric: Appropriate mood/affect Skin: Normal Color; Warm/Dry Results & Data Results & Data ([facility] Vital Signs (Past 12 Hours) Vital Signs Temp Pulse Resp BP Pulse Ox 02/05/21 15:12 36.8 C 54 L 18 131/63 97 02/05/21 11:47 36.7 C 68 18 154/83 H 80 L 02/05/21 08:03 36.5 C 87 18 128/71 92 02/05/21 07:35 36.5 C 60 16 156/48 H 96 PG Care Time/CCT Total # of Minutes Spent Total Time Spent with Patient: Total time spent is greater than 50% in coordination of care (as documented) at patient's floor/unit and/or counseling patient: Coding Level of Care Code 99901 Subseq Hosp Care Lvl 3 Diagnoses Acute confusion R41.0
[2021-02-06] MEDS: LEVOTHYROXINE SODIUM 137 MCG TABLET PO SCH (06:16)
[2021-02-06] MEDS: amLODIPine BESYLATE 5 MG TAB PO SCH (09:09)
[2021-02-06] MEDS: ESCITALOPRAM OXALATE 10 MG TAB PO SCH (09:10)
[2021-02-06] MEDS: ATORVASTATIN 40 MG TAB PO SCH (09:10)
[2021-02-06] MEDS: ASPIRIN 81 MG ECTAB PO SCH (09:10)
[2021-02-06] MEDS: CLOPIDOGREL BISULFATE 75 MG TAB PO SCH (09:10)
[2021-02-06] MEDS: ISOSORBIDE MONO EXTENDED REL 30 MG TABCR PO SCH (09:11)
[2021-02-06] MEDS: METOPROLOL SUCC 50MG EXT REL TAB PO SCH (09:12)
--- NOTE | 2021-02-06 14:12 | Hospitalist Progress Note ---
Date of Service February 06, 2021 Assessment & Plan (1) Acute confusion: Plan: Patient is an 85 year old female with PMHx DM2, HTN, CVA, recent UTI, who presents with complaint of worsening confusion in the context of recent UTI treatment. Patient is pleasant, though mildly confused in regards for her reasoning for being in the hospital. Acute Confusion: AT BASELINE -Patient lives at home and daughter reporting worsening confusion throughout the day on 01/30 -Of note, patient recently being treated for UTI as outpatient. Completed 10 day course of cefdinir while admitted on 02/02 - reporting no urinary symptoms -CT head stat read without signs of acute stroke -Suspect that the confusion may be secondary to dehydration vs waxing and waning of her underlying dementia -- Discussed with daughter who reports lack of oral hydration can quickly change her mentation then she will improve - need prompting to drink fluids -- Does enjoy coffee, ice cream, chocolate milk, lemonade, ice tea - can provide these to help facilitate more hydration -H&H stable, VSS -Monitor UOP, BMP, CBC Chronic Kidney Disease Stage III: - Acute kidney failure suspect related to poor oral intake/pre-renal - RESOLVING - Cr bumped to 1.7 and improved with some hydration - baseline appears around 1.1-1.3 - Will hold Lisinopril/HCTZ and will monitor - Encourage oral hydration LEFT Hip Pain, improved (Atop Chronic B/L Hip Pain) -- with evidence of L knee contusion -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 -CK normal -Noted that patient is on statin, continue for now -L knee XR 01/31: no acute bony abnormalities -L hip XR 01/31: osteopenia, OA, no acute fx -Continue w/ pain control -Continue PT,OT Falls at Home / Concern for Gait Instability -Patient lives at home with daughter, has had a few falls over the last month (also in context of recent UTI) -Consult PT, OT -- PT recommending rehab placement; OT recommending SNF placement UTI -UA in ED fairly clean -Completed course of Cefdinir on 02/02 -No evidence of ongoing infectious etiology Elevated Troponin -No complaints of chest pain, shortness of breath over recent history or presently -Patient with mildly elevated troponin 0.067 screened in ED, now downtrending - review of past labs and chronically has elevated troponins -EKG with sinus ariana and incomplete RBBB on arrival --> subsequently resolved on repeat ECG. No acute concerns. -Suspect secondary to hypertension on admission with BP 202/72 - some demand ischemia HTN -Hold Lisinopril-HCTZ given bump in renal function - BMP in AM -- Discussed with daughter to consider splitting the medication (once Cr improved) to control BP; maybe with HCTZ PRN for leg swelling -Continue home Isosorbide mononitrate -Metoprolol initially held sec to bradycardia (?chronic based on prior ECGs) -- resumed on 01/31 given ongoing HTN and very minimal moments of HR in 50s Plan: Awaiting rehab placement; possible bed tomorrow. Appears at baseline mentation which confusion does worsen in afternoon which is normal. Patient would be medically suitable for D/C pending bed - Updated daughter on the phone on 02/04 - will call her later today Admission and Anticipated Discharge Date Admission Date: February 01, 2021 Subjective Reports doing well today. Eating breakfast during my visit and ate everyone and was working on the last half slice of [employer]. She is alert and oriented to person and place. Not so great with situation. She has been pleasant and cooperative. She is looking forward to getting home. When talking about rehab she initially says she doesn't want to go but when discussing it is to get her stronger and walking she then states its a good idea. She reports no complaints at this time. Review of Systems Review of Systems: All systems reviewed & are unremarkable except as noted in Subjective Physical Exam Physical Exam: PHYSICAL EXAM General Appearance: WDWN in NAD who is A&O x person and place; not certain of why she is in the hospital and can be forgetful; gets more confused into afternoon/evening HEENT: Head is normocephalic/atraumatic; Hearing grossly intact; Mucous membranes moist Neck: Supple; Trachea midline; Neg JVD Heart: RRR with no M/G/R Lungs: CTA in all lung kaur bilaterally; Respirations unlabored; Neg accessory muscle use Abdomen: Soft, non-tender, non-distended; Positive BS x 4 quadrants Extremities: Neg cyanosis or edema Neurological: Speech clear; Gross motor/sensory function intact; Neg focal neurologic deficits Psychiatric: Appropriate mood/affect Skin: Normal Color; Warm/Dry Results & Data Results & Data ([place]) Vital Signs (Past 12 Hours) Vital Signs Temp Pulse Resp BP Pulse Ox 02/06/21 08:25 36.5 C 53 L 18 168/86 H 97 PG Care Time/CCT Total # of Minutes Spent Total Time Spent with Patient: Total time spent is greater than 50% in coordination of care (as documented) at patient's floor/unit and/or counseling patient: Coding Level of Care Code 02813 Subseq Hosp Care Lvl 2 Diagnoses Acute confusion R41.0
[2021-02-07] MEDS: LEVOTHYROXINE SODIUM 137 MCG TABLET PO SCH (05:24)
[2021-02-07] MEDS: ACETAMINOPHEN 325 MG TAB PO PRN (08:14)
[2021-02-07] MEDS: ESCITALOPRAM OXALATE 10 MG TAB PO SCH (08:16)
[2021-02-07] MEDS: METOPROLOL SUCC 50MG EXT REL TAB PO SCH (08:17)
[2021-02-07] MEDS: CLOPIDOGREL BISULFATE 75 MG TAB PO SCH (08:18)
[2021-02-07] MEDS: amLODIPine BESYLATE 5 MG TAB PO SCH (08:18)
[2021-02-07] MEDS: ISOSORBIDE MONO EXTENDED REL 30 MG TABCR PO SCH (08:19)
[2021-02-07] MEDS: ASPIRIN 81 MG ECTAB PO SCH (08:19)
[2021-02-07] MEDS: ATORVASTATIN 40 MG TAB PO SCH (08:20)
--- NOTE | 2021-02-07 18:06 | Discharge Summary ---
Date of Service February 07, 2021 Admission HPI Per Admitting Provider Patient is an 85 year old female with PMHx DM2, HTN, CVA, recent UTI, who presents with complaint of worsening confusion, concerning for resistant UTI. Patient is pleasant, though mildly confused in regards for her reasoning for being in the hospital. She notes that she was having some pain, though unable to specify where, earlier in the day and told her daughter who brought her in. Currently patient notes b/l thigh pain, but states that this has been ongoing and not the reason she she came. Discussion with the patients daughter Arlyn, she noted that her mother was more confused today than usual and when asked about her confusion became more angry and belligerent. She notes that around 11AM today the patient was talking about "walking home now" despite already being in her home. She had concerns that this was due to a resistant UTI as the patient had similar symptoms 1 week prior before being diagnosed with a UTI and started on Cefdinir. Patient is currently on day 09/07 of her antibiotic course. Arlyn also notes that since January 07 the patient has also falling about 3 times, but they believe the 2 most recent events were related to the UTI. She states that during these 2 recent falls as well the patient had somewhat missed where she was attempting to sit and Arlyn had actually had a hold of the patient for the slow descent to the ground. Patient currently denies any NVD, SOB, Chest pain, abdominal pain, fever, chills, dizziness, dysuria, hematuria. Med Hx: DM2, HTN, CVA, recent UTI Surg Hx: cataract surgery Soc HX: denies tobacco, alcohol, illicit drug use Principal Diagnosis Confusion likely from Dehydration vs Waxing/Waning Dementia Discharge Exam PHYSICAL EXAM General Appearance: WDWN in NAD who is A&O x person and place; not certain of why she is in the hospital and can be forgetful; gets more confused into afternoon/evening HEENT: Head is normocephalic/atraumatic; Hearing grossly intact; Mucous membranes moist Neck: Supple; Trachea midline; Neg JVD Heart: RRR with no M/G/R Lungs: CTA in all lung kaur bilaterally; Respirations unlabored; Neg accessory muscle use Abdomen: Soft, non-tender, non-distended; Positive BS x 4 quadrants Extremities: Neg cyanosis or edema Neurological: Speech clear; Gross motor/sensory function intact; Neg focal neurologic deficits Psychiatric: Appropriate mood/affect Skin: Normal Color; Warm/Dry Discharge Data Allergies Allergy/AdvReac Type Severity Reaction Status Date / Time cefpodoxime [From Vantin] Allergy Unknown Unknown Verified 01/30/21 21:24 Sulfa (Sulfonamide Allergy Unknown Unknown Verified 01/30/21 21:24 Antibiotics) Consultations 01/30/21 21:17 ED Decision to Admit Stat Ordered Studies Chest X-Ray 01/30/21 16:30 XR chest 2V PA/lateral CLINICAL HISTORY: Sepsis. COMPARISON STUDY: Chest radiograph January 23, 2021. FINDINGS: Lung volumes are normal. There is no pneumothorax or pleural effusion. Mild cardiomegaly is unchanged. No evidence for pulmonary edema. Stable interstitial thickening is unchanged. Linear right basilar opacities favor atelectasis or scarring. IMPRESSION: No acute cardiopulmonary findings. ACT 112: Negative or not required by law. Electronically signed by: Byron Gomes M.D. 01/30/2021 5:[address] 01/30/21 20:18 CT head/brain wo con CLINICAL HISTORY: AMS COMPARISON STUDY: 01/23/2021 CT DOSE: 614.27 mGy.cm TECHNIQUE: Standard CT of the Brain was performed without IV contrast. A dose lowering technique was utilized adhering to the principles of ALARA. FINDINGS: Extraaxial space: There is no evidence for subdural hematoma. There are no extra-axial fluid collections. Ventricles and cisterns: The ventricles are again mildly to moderately dilated bilaterally. There is no evidence for midline shift or mass effect. Parenchyma: There is no subarachnoid or intraparenchymal hemorrhage. There is no evidence for an acute infarct or cerebral edema. Old compression or infarct is again seen on the left. There is mild cerebral cortical atrophy and decreased attenuation in the periventricular white matter representing remote small vessel disease. There are no gross mass lesions. 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 Osseous structures: There is no evidence for an acute fracture. Mild mucosal thickening is seen involving the floors of the maxillary antra and ethmoid air cells bilaterally. The remaining visualized paranasal sinuses are clear. The mastoid air cells are clear bilaterally. Soft tissues: There is no evidence for focal soft tissue swelling. IMPRESSION: No acute intracerebral pathology. Cerebral cortical atrophy, remote small vessel disease and old left lacunar infarct are again seen. Mild chronic sinusitis. ACT 112: Negative or not required by law. Electronically signed by: Stanford Galaviz M.D. 01/31/2021 6:58 AM Hip/Pelvis X-Ray 01/31/21 16:18 SINGLE VIEW PELVIS; 2 VIEWS RIGHT HIP; 2 VIEWS LEFT HIP CLINICAL HISTORY: Left hip pain. FINDINGS: An AP view of the pelvis with AP and frog-leg views of the right hip as well as AP and crosstable lateral views of the left hip are obtained. Correlation is made with pelvic CT dated 09/07/2018. The examination is significantly degraded by inability to properly position the patient. The skeletal structures are osteopenic. There is no radiographic evidence of acute fracture involving the hips or bony pelvis. Mild to moderate degenerative joint space narrowing and arthritic change is seen in the hips. Lumbosacral spondylosis is partially visualized. There is degenerative sclerosis of the sacroiliac joints. The overlying soft tissues are normal as visualized. IMPRESSION: No acute bony abnormality is identified on this degraded examination. Electronically signed by: Carlos Atwood M.D. 01/31/2021 6:31 PM Knee X-Ray 01/31/21 16:18 LEFT KNEE 2 VIEWS CLINICAL HISTORY: Left knee pain. Bruising. FINDINGS: Crosstable AP and crosstable lateral views of the left knee are obtained. The examination is significantly degraded by inability to properly position the patient. No prior studies are available for comparison at the time of dictation. The skeletal structures are osteopenic. No fracture is identified. Degenerative joint space narrowing is noted. There is no joint effusion. The overlying soft tissues are normal as imaged. There is mild atherosclerotic calcification of the popliteal artery. IMPRESSION: No acute bony abnormality is identified. Electronically signed by: Carlos Atwood M.D. 01/31/2021 6:28 PM Hospital Course (1) Acute confusion: Patient is an 85 year old female with PMHx DM2, HTN, CVA, recent UTI, who presents with complaint of worsening confusion in the context of recent UTI treatment. Patient is pleasant, though mildly confused in regards for her reasoning for being in the hospital. Acute Confusion: AT BASELINE -Patient lives at home with daughter reporting worsening confusion throughout the day on 01/30 -Of note, patient recently treated for UTI as outpatient. Completed 10 day course of cefdinir while admitted on 02/02 - reporting no urinary symptoms -CT head stat read without signs of acute stroke -Suspect that the confusion may be secondary to dehydration vs waxing and waning of her underlying dementia -- Discussed with daughter who reports lack of oral hydration can quickly change her mentation then she will improve - need prompting to drink fluids -- Does enjoy coffee, ice cream, chocolate milk, lemonade, ice tea Chronic Kidney Disease Stage III: - Acute kidney failure suspect related to poor oral intake/pre-renal - RESOLVING - Cr bumped to 1.7 and improved with some hydration - baseline appears around 1.1-1.3 - Encourage oral hydration LEFT Hip Pain, improved (Atop Chronic B/L Hip Pain) -- with evidence of L knee contusion -Reportedly has fpc history of b/l hip pain -CK normal -Noted that patient is on statin, continue for now -L knee XR 01/31: no acute bony abnormalities -L hip XR 01/31: osteopenia, OA, no acute fx -Continue w/ pain control -Continue PT,OT Falls at Home / Concern for Gait Instability -Patient lives at home with daughter, has had a few falls over the last month (also in context of recent UTI) -Consult PT, OT -- PT recommending rehab placement; OT recommending SNF placement UTI -UA in ED fairly clean -Completed course of Cefdinir on 02/02 -No evidence of ongoing infectious etiology Elevated Troponin -No complaints of chest pain, shortness of breath over recent history or presently -Patient with mildly elevated troponin 0.067 screened in ED, now downtrending - review of past labs and chronically has elevated troponins -EKG with sinus ariana and incomplete RBBB on arrival --> subsequently resolved on repeat ECG. No acute concerns. -Suspect secondary to hypertension on admission with BP 202/72 - some demand ischemia HTN - Resume Lisinopril 20 mg daily with HCTZ 12.5 mg PRN just for swelling as likely dehydration worsening her mentation -- Discussed with daughter -Continue home Isosorbide mononitrate -Metoprolol initially held sec to bradycardia (?chronic based on prior ECGs) -- resumed on 01/31 given ongoing HTN and very minimal moments of HR in 50s Rehab at [place] Total Time Total Time Spent Total Time Spent (In Minutes): Spent greater than 30 minutes preparing patient for discharge. This includes discussion with patient/family, assessment, intervention, medication reconciliation, and coordination of care. Discharge Plan Discharge Items Patient Disposition: Transfer [facility] Fac Reason For Visit: CONFUSION Discharge Diagnosis: Acute Confusion likely due to Dehydration and Waxing/Waning Dementia Activity: Resume your previous activity Non-emergency contact: Primary Care Provider Call non-emergency contact if: you have any medication questions, your symptoms worsen and you have a fever Follow-up/Referrals: Jaguar Kelly [Primary Care Provider] - Diet: Heart Healthy Addtl Attending Provider Instructions: Patient is an 85 year old female with PMHx DM2, HTN, CVA, recent UTI, who presents with complaint of worsening confusion in the context of recent UTI treatment. Patient is pleasant, though mildly confused in regards for her reasoning for being in the hospital. Acute Confusion: AT BASELINE -Patient lives at home and daughter reporting worsening confusion throughout the day on 01/30 -Of note, patient recently being treated for UTI as outpatient. Completed 10 day course of cefdinir while admitted on 02/02 - reporting no urinary symptoms -CT head stat read without signs of acute stroke -Suspect that the confusion may be secondary to dehydration vs waxing and waning of her underlying dementia -- Discussed with daughter who reports lack of oral hydration can quickly change her mentation then she will improve - need prompting to drink fluids -- Does enjoy coffee, ice cream, chocolate milk, lemonade, ice tea - can provide these to help facilitate more hydration - Has been very pleasant and cooperative. Tends to get a little more confused in the afternoon/evening but has been able to redirect when talking with her. Daughter states when she doesn't stay hydrated she can get a little bit more mean verbally but seems to improve when keeping up with her oral hydration. No episodes of that here. She can get a bit tearful when she feels overwhelmed or uncertain of how to accomplish something (for instance when discussing leaving the hospital she wasn't sure how she would get picked up - but quickly calmed down when told we will arrange that). She will occasionally talk about going to her moms when she is a bit more confused. - No other infectious etiology found during admission Chronic Kidney Disease Stage III: - Cr bumped to 1.7 and improved with some hydration - baseline appears around 1.1-1.3 - Encourage oral hydration LEFT Hip Pain,improved(Atop Chronic B/L Hip Pain) --with evidence of L knee contusion -Reportedly has fpc history of b/l hip pain -L knee XR 01/31: no acute bony abnormalities -L hip XR 01/31: osteopenia, OA, no acute fx -Continue w/ pain control - Tylenol seems to assist; Did use ibuprofen x 1 with good relief as well Falls at Home / Concern for Gait Instability -Patient lives at home with daughter, has had a few falls over the last month (also in context of recent UTI) UTI -Repeat UA in ED clean -Completed course of Cefdinir on 02/02 -No evidence of ongoing infectious etiology HTN - Has been largely controlled ranging from 115/70 to 150/70. Did have higher readings in the past and especially when first admitted which may have been due to stress and confusion. Given falls would not overcorrect - Given her history of not really drinking a lot and ease for dehydration - did discuss with her daughter about continuing the Lisinopril component of her blood pressure medication combo and using the HCTZ as needed should she develop lower extremity edema which she has had in the past. -Continue home Isosorbide mononitrate -Metoprolol initially held sec to bradycardia (?chronic based on prior ECGs) but has been resumed - tends to run in the 50-60s. Could consider dose reduction if continues Pending Studies at Discharge: No Stand-Alone Forms: My [facility] [place] [employer] Skilled Items Patient informed of condition?: Yes DNR: No Discharge Level of Care: Skilled Communicable Disease: No Discharge Prognosis: Stable Lines: None Urinary Catheter: No Medications and DC Order Prescriptions: New lisinopril 20 mg tablet 20 mg PO HS 30 Days Qty: 30 RF: 0 hydrochlorothiazide 12.5 mg tablet 12.5 mg PO DAILY PRN (Reason: Swelling/Edema) 7 Days Qty: 7 RF: 0 Continued clopidogrel 75 mg Tablet 75 mg PO QAM Qty: 30 RF: 3 atorvastatin [Lipitor] 40 mg tablet 40 mg PO QAM RF: 0 levothyroxine 137 mcg tablet 137 mcg PO DAILY RF: 0 amlodipine 2.5 mg tablet 2.5 mg PO DAILY RF: 0 nitroglycerin [Nitrostat] 0.4 mg Tablet, Sublingual 0.4 mg sublingual UD PRN (Reason: chest pain) Qty: 14 RF: 0 metoprolol succinate 50 mg tablet extended release 24 hr 50 mg PO QAM RF: 0 isosorbide mononitrate 30 mg tablet extended release 24 hr 30 mg PO QAM RF: 0 aspirin 81 mg tablet,delayed release (DR/EC) 81 mg PO QAM RF: 0 escitalopram oxalate 5 mg tablet 5 mg PO DAILY RF: 0 melatonin 3 mg Tablet 3 mg PO HS Qty: 30 RF: 0 ibuprofen 100 mg Tablet 0 mg PO Q6H PRN (Reason: Pain) RF: 0 Discontinued lisinopril-hydrochlorothiazide 20-12.5 mg tablet 1 tab PO HS RF: 0 cefdinir 300 mg capsule 300 mg PO BID 10 Days Qty: 20 RF: 0 Discharge Orders: Discharge Order (Routine); Ordered 02/07/21 Ordered By: Ailyn Robles Admission Data Admit Date/Time: 02/01/21 08:38 Attending Provider: Laurent Escobedo Admit Provider: Gregg Porter Primary Care Provider: Jaguar Kelly Other Providers: Faiza Sheffield ; [facility] ; [employer] ; [facility] ; [facility] Other Interventions: Discharge Summary Assessment (RN) Last Done: 02/07/21 14:22 Supervising Physician Co-Signing Physician Notes Attending note: patient seen and examined with Ailyn Robles PA-C. I agree with her discharge summary. I personally reviewed the labs and imaging findings. patient doing quite well, she is pleasant and cooperative, eating well arranged for SNF placement, she agrees to go PA and CM discussed with her family - Altered mental status, likely from dehydration and baseline dementia with confusion patient now hydrated, eating and drinking well discharge to SNF for care Coding Level of Care Code D/C DAY MANAGEMENT >30 MINS Diagnoses Acute confusion R41.0
== END 2021-02-07 17:03 | DRG 641 ==
LOC: EDINP 16:03 → ED 16:03 → SUATTDRO 01-31 01:11 → 2N 01-31 01:23 → 3N 01-31 20:50 → SUATTDRO 02-01 08:38

== ENCOUNTER 2021-04-12 14:39 | Observation (INO) ==
[2021-04-12 15:06] LABS: Basophils # (auto) 0.03 K/uL (0-0.2); Basophils % (auto) 0.4 %; Eosinophils # (auto) 0.14 K/uL (0-0.5); Hematocrit (blood only) 39.1 % (37-47); Hemoglobin 12.8 g/dL (12.0-16.0); Immature Granulocytes # (auto) 0.01 K/uL (0.00-0.02); Immature Granulocytes % (auto) 0.1 %; Lymphocytes # (auto) 1.24 K/uL (1.2-3.4); Lymphocytes % (auto) 17.4 %; Mean Corpuscular Hemoglobin 28.3 pg (25-34); Mean Corpuscular Hgb Conc 32.7 g/dL (32-36); Mean Corpuscular Volume 86.5 fL (80-100); Mean Platelet Volume 10.2 fL (7.4-10.4); Monocytes # (auto) 0.43 K/uL (0.11-0.59); Neutrophils # (auto) 5.26 K/uL (1.4-6.5); Neutrophils % (auto) 74.1 %; Platelet Count 296 K/uL (130-400); RDW Coefficient of Variation 13.2 % (11.5-14.5); RDW Standard Deviation 42.3 fL (36.4-46.3); Red Blood Count 4.52 M/uL (4.2-5.4); White Blood Count 7.11 K/uL (4.8-10.8)
--- NOTE | 2021-04-12 15:24 | Emergency Department Note ---
History of Present Illness General Chief complaint: Urinary Symptoms Stated complaint: UTI/CONFUSION Time Seen by Provider: 04/12/21 14:56 Source: patient and family (Daughter) History of Present Illness Onset (ago): week(s) Location: head Pain Consistency: + intermittent Quality: + other (Confusion) Relieved By: + none Associated symptoms: no chest pain, no cough, no fever/chills, no headaches, no nausea/vomiting or no shortness of breath This is an 85-year-old female Who presents with confusion starting 9 days ago. The patient is making threats of egress, not following commands, trying to get up when she should not try to get up on her own starting 9 days ago. This is often due to a urinary tract infection so her daughter took her to an urgent care center 5 days ago and she was diagnosed with a UTI and placed on cefdinir. She is currently on medication but has had no improvement in her symptoms. She is here without any complaints. She states that she has no fever, headache, cough or cold symptoms, chest pain, shortness of breath, abdominal pain, vomiting, diarrhea or urinary symptoms. Her daughter states that she tried to scratch and bite her the other day. She is concerned that she may hurt her self if she continues to stay home at this point. She states that she had a history of confusion due to UTI in January and was kept here for a week and then sent to a group home for 2 weeks. Her confusion seem to resolve until about 9 days ago.She was seen here for chest pain as well about a month ago but has not c omplained of any chest pain since. She also has chronic pain to her knees and saw her orthopedic doctor last week. She had steroid injections with helped her pain and is going to have "gel" injections coming up. She did fall the other day but landed on her buttocks. Her daughter states that she is 99% sure she did not hit her head. Home Medications Medication Instructions Recorded Confirmed Type clopidogrel 75 mg tablet 75 mg PO QAM #30 tab 01/06/18 03/04/21 Rx atorvastatin 40 mg tablet (Lipitor) 40 mg PO QAM 12/22/18 03/04/21 History amlodipine 2.5 mg tablet 2.5 mg PO DAILY 03/11/20 03/04/21 History levothyroxine 137 mcg tablet 137 mcg PO DAILY 03/11/20 03/04/21 History nitroglycerin 0.4 mg sublingual 0.4 mg SUBLINGUAL UD PRN #14 tab 03/13/20 03/04/21 Rx tablet (Nitrostat) aspirin 81 mg tablet,delayed 81 mg PO QAM 05/23/20 03/04/21 History release isosorbide mononitrate 30 mg 30 mg PO QAM 05/23/20 03/04/21 History tablet,extended release 24 hr metoprolol succinate 50 mg 50 mg PO QAM 05/23/20 03/04/21 History tablet,extended release 24 hr escitalopram oxalate 5 mg tablet 5 mg PO DAILY 12/08/20 03/04/21 History melatonin 3 mg tablet 3 mg PO HS #30 tab 12/26/20 03/04/21 Rx ibuprofen 200 mg tablet 200 mg PO DIRECTED PRN 03/04/21 03/04/21 History Allergies Allergy/AdvReac Type Severity Reaction Status Date / Time cefpodoxime [From Vantin] Allergy Unknown Unknown Verified 03/04/21 16:32 Sulfa (Sulfonamide Allergy Unknown Unknown Verified 03/04/21 16:32 Antibiotics) Past Med/Surg History Medical History Acute confusion Chest pain Diabetes History of CVA with residual deficit HTN (hypertension) Hypertension Osteoarthritis of right knee Surgical History History of cataract surgery Family History Mother , age 69 with heart disease No problems noted. Father No problems noted. Other Family history non-contributory Social History Smoking Status: Never smoker Second Hand Exposure: Yes; Hx Alcohol Use: No Hx Substance Use: No Preferred Language: Gambian Communication Ability: Effective [employer] Required: No Beliefs That Will Affect Care: None marital status: Current Living Situation: Family Current Living Situation Comment: Patient lives with her son, but her daughter and son in law also help Feels Safe at Home: Yes Assistive Devices: Walker Review of Systems See HPI for pertinent positives & negatives. and A total of 10 systems reviewed and were otherwise negative Physical Exam Vital Signs Vital Signs - 24 hr 04/12/21 14:41 Temperature 36.2 C L Temperature Source Temporal Artery Scan Pulse Rate 65 Respiratory Rate 20 Respiratory Effort / Characteristics Non-Labored Spontaneous Respiratory Depth Normal Respiratory Pattern Regular Blood Pressure 149/63 H Blood Pressure Mean 91 Pulse Oximetry 96 Oxygen Delivery Method Room Air Sepsis Recent Fever Within 48 Hours No Sepsis New/Unexplained Change in Mental Status No Sepsis Action Taken by Nursing No Action Required Constitutional: Vital signs reviewed. Eyes: Pupils are equal round reactive to light. Conjunctiva are noninjected. ENT: Pharynx is clear without erythema or exudate. Mucous membranes are moist. Neck supple without meningeal signs. Respiratory: Clear to auscultation bilaterally. Breath sounds are equal bilaterally. Cardiovascular: Regular rate and rhythm. No rubs or gallops. GI: Soft, nondistended and nontender. Bowel sounds are present. Musculoskeletal: No peripheral edema. No lower extremity tenderness. No tenderness, swelling, erythema or increased warmth to either knee. Integumentary: No cyanosis. or jaundice. Neurological: The patient is awake and alert. No focal deficits. Psychiatric: Normal affect. Not anxious appearing. Medical Decision Making Differential Diagnosis Dementia, UTI, VLAD, CVA, intracranial hemorrhage, metabolic derangement Medical Records Attestation: I reviewed the patient's medical records. I did perform a limited focused review of portions of the patient's old chart on the electronic medical record. The patient was admitted to the hospital in January of last year due to confusion and an elevated troponin. She was thought to have confusion from dehydration versus intermittent dementia. Her troponins trended downwards and she was eventually discharged. She was here again in March of this year for chest pain. She was evaluated by the hospitalist and discharged home from the ED. Home Medications Current Medication List: was personally reviewed by me Laboratory Data Attestation: I reviewed the patient's lab results. Result diagrams: 04/12/21 14:49 04/12/21 14:49 Lab Results 04/12/21 04/12/21 04/12/21 Range/Units 14:49 14:49 14:49 WBC 7.11 (4.8-10.8) K/uL RBC 4.52 (4.2-5.4) M/uL Hgb 12.8 (12.0-16.0) g/dL Hct 39.1 (37-47) % MCV 86.5 (80-100) fL MCH 28.3 (25-34) pg MCHC 32.7 (32-36) g/dL RDW Std Deviation 42.3 (36.4-46.3) fL RDW Coeff of Michaela 13.2 (11.5-14.5) % Plt Count 296 (130-400) K/uL MPV 10.2 (7.4-10.4) fL Immature Gran % (Auto) 0.1 % Neut % (Auto) 74.1 % Lymph % (Auto) 17.4 % [place] % (Auto) 6.0 % Eos % (Auto) 2.0 % Baso % (Auto) 0.4 % Neut # (Auto) 5.26 (1.4-6.5) K/uL Lymph # (Auto) 1.24 (1.2-3.4) K/uL [place] # (Auto) 0.43 (0.11-0.59) K/uL Eos # (Auto) 0.14 (0-0.5) K/uL Baso # (Auto) 0.03 (0-0.2) K/uL Immature Gran # (Auto) 0.01 (0.00-0.02) K/uL Sodium 138 (136-145) mmol/L Potassium 4.1 (3.5-5.1) mmol/L Chloride 104 (98-107) mmol/L Carbon Dioxide 27 (21-32) mmol/L Anion Gap 7 (3-11) BUN 21 (6-23) mg/dl Creatinine 1.17 (0.6-1.2) mg/dl Est Cr Clr Drug Dosing Not Reportable Est GFR ( Amer) 48.9 ml/min Est GFR (Non-Af Amer) 42.2 ml/min BUN/Creatinine Ratio 17.9 (10-20) Glucose 136 H (70-99(Fasting)) mg/dl Calcium 9.5 (8.5-10.1) mg/dl Total Bilirubin 0.5 (0.2-1.0) mg/dl AST 16 (13-39) U/L ALT 10 (7-52) U/L Alkaline Phosphatase 67 (34-104) U/L Troponin I 0.03 (0-0.04) ng/ml Total Protein 6.9 (6.0-8.3) gm/dl Albumin 4.0 (3.4-5.0) gm/dl Globulin 2.9 (2.5-4.0) gm/dl Albumin/Globulin Ratio 1.4 (0.9-2) TSH (0.300-4.500) uIu/ml 04/12/21 Range/Units 14:49 WBC (4.8-10.8) K/uL RBC (4.2-5.4) M/uL Hgb (12.0-16.0) g/dL Hct (37-47) % MCV (80-100) fL MCH (25-34) pg MCHC (32-36) g/dL RDW Std Deviation (36.4-46.3) fL RDW Coeff of Michaela (11.5-14.5) % Plt Count (130-400) K/uL MPV (7.4-10.4) fL Immature Gran % (Auto) % Neut % (Auto) % Lymph % (Auto) % [place] % (Auto) % Eos % (Auto) % Baso % (Auto) % Neut # (Auto) (1.4-6.5) K/uL Lymph # (Auto) (1.2-3.4) K/uL [place] # (Auto) (0.11-0.59) K/uL Eos # (Auto) (0-0.5) K/uL Baso # (Auto) (0-0.2) K/uL Immature Gran # (Auto) (0.00-0.02) K/uL Sodium (136-145) mmol/L Potassium (3.5-5.1) mmol/L Chloride (98-107) mmol/L Carbon Dioxide (21-32) mmol/L Anion Gap (3-11) BUN (6-23) mg/dl Creatinine (0.6-1.2) mg/dl Est Cr Clr Drug Dosing Est GFR ( Amer) ml/min Est GFR (Non-Af Amer) ml/min BUN/Creatinine Ratio (10-20) Glucose (70-99(Fasting)) mg/dl Calcium (8.5-10.1) mg/dl Total Bilirubin (0.2-1.0) mg/dl AST (13-39) U/L ALT (7-52) U/L Alkaline Phosphatase (34-104) U/L Troponin I (0-0.04) ng/ml Total Protein (6.0-8.3) gm/dl Albumin (3.4-5.0) gm/dl Globulin (2.5-4.0) gm/dl Albumin/Globulin Ratio (0.9-2) TSH 6.102 H (0.300-4.500) uIu/ml Imaging Data Radiologist's Impression: Chest X-Ray 04/12/21 15:13 XR chest 1V portable HISTORY: Altered mental status. Assess for pneumonia. COMPARISON: Chest 03/04/2021. FINDINGS: No pneumothorax. No pleural effusions. The heart remains mildly enlarged. There is mild central pulmonary vascular congestion without overt edema. This is improved. No new focal lung consolidations to suggest pneumonia. IMPRESSION: Cardiomegaly with mild central pulmonary vascular congestion. ACT 112: Negative or not required by law. Electronically signed by: Iain Brewer M.D. 04/12/2021 3:[address] 04/12/21 15:[address] DOSE: 537.48 mGy.cm HISTORY: Altered mental status. TECHNIQUE: Multiaxial CT images of the head were performed without the use of intravenous contrast. Automated exposure control was utilized for this study. A dose lowering technique was utilized adhering to the principles of ALARA. Comparison: Head CT 01/30/2021. Findings: Mild mucosal thickening within the nasal sinuses. The mastoid air cells are clear. Surgical clips within the superior right orbit, unchanged. These appear to be abutting the globe. Embolization coil adjacent to the right i nternal carotid artery. The calvarium and skull base are intact. There is no mass, hematoma, midline shift, acute infarct. White matter hypodensity is nonspecific but suggestive of microvascular ischemic change. The ventricles and sulci demonstrate moderate age-related involutional changes. Old lacunar infarct again noted within the left basal ganglia. Impression: No significant change compared to the prior study. No acute intracranial abnormality. ACT 112: Negative or not required by law. Electronically signed by: Iain Brewer M.D. 04/12/2021 5:02 PM ECG Data Attestation: I personally reviewed and interpreted this ECG as follows: Indication: + altered mental status Rate (beats per minute): 55 Rhythm: + sinus bradycardia ECG ST segments: no ST elevation ECG Findings: no PVCs Comparison ECG Date: from (March 04, 2021) Change: no significant change MDM Narrative I did evaluate the patient as noted above. The patient is presenting with incr eased confusion over the past 9 days. She is currently on 5 days of cefdinir and has not improved. She has no complaints at this time. Her daughter brought her in hoping she would be admitted as she does not feel she can take care of her at home. IV access was established. I did place an order for continuous cardiac monitoring. The monitor showed Normal sinus rhythm at a rate of 66 bpm. I did order and personally review the patient's 12-lead EKG as described above. She has sinus bradycardia without any acute ischemic changes. I did order and personally reviewed the images of the patient's chest x-ray as described above. She has cardiomegaly with mild pulmonary vascular congestion. I did order a urine analysis. The sample was lost and so another cath specimen is being obtained. I did order and review the patient's blood work as noted in the electronic medical record. CBC is unremarkable without leukocytosis or anemia. Electrolytes and LFTs are unremarkable. Troponin is negative. TSH is 6.1. She is on levothyroxine. I did order a CT of the head. I did review the images myself as well as the radiology report as described above. There is no evidence of acute intracranial abnormality. I did discuss the test results with the patient's daughter. She does not feel the patient can be adequately taking care of at home. She is concerned about her safety as she sometimes wanders off and does not follow instructions. She fell the other day. I did discuss the case with the hospitalist and case coordinator. A Covid test is pending. Impression & Plan Confusion, UTI (urinary tract infection) Discharge Plan Visit Data Chief Complaint: Urinary Symptoms Stated Complaint: UTI/CONFUSION ED Provider: Gregg Smith Discharge Problem: Confusion, UTI (urinary tract infection) Patient Disposition: Being Evaluated by Hospitalist Forms Stand Alone Forms: My [facility] Prescriptions Prescriptions: No Action clopidogrel 75 mg Tablet 75 mg PO QAM Qty: 30 RF: 3 atorvastatin [Lipitor] 40 mg tablet 40 mg PO QAM RF: 0 levothyroxine 137 mcg tablet 137 mcg PO DAILY RF: 0 amlodipine 2.5 mg tablet 2.5 mg PO DAILY RF: 0 nitroglycerin [Nitrostat] 0.4 mg Tablet, Sublingual 0.4 mg sublingual UD PRN (Reason: chest pain) Qty: 14 RF: 0 metoprolol succinate 50 mg tablet extended release 24 hr 50 mg PO QAM RF: 0 isosorbide mononitrate 30 mg tablet extended release 24 hr 30 mg PO QAM RF: 0 aspirin 81 mg tablet,delayed release (DR/EC) 81 mg PO QAM RF: 0 escitalopram oxalate 5 mg tablet 5 mg PO DAILY RF: 0 melatonin 3 mg Tablet 3 mg PO HS Qty: 30 RF: 0 ibuprofen 200 mg Tablet 200 mg PO DIRECTED PRN (Reason: Pain) RF: 0 Referrals Referrals: Jaguar Kelly [Primary Care Provider] - Discharge Problem: UTI (urinary tract infection) Qualifiers: Urinary tract infection type: site unspecified Hematuria presence: without hematuria Qualified Code(s): N39.0 - Urinary tract infection, site not specified
[2021-04-12 15:25] LABS: Alanine Aminotransferase 10 U/L (7-52); Albumin Globulin Ratio 1.4 (0.9-2); Alkaline Phosphatase 67 U/L (34-104); Anion Gap 7 (3-11); Aspartate Aminotransferase 16 U/L (13-39); BUN Creatinine Ratio 17.9 (10-20); Bilirubin,Total 0.5 mg/dl (0.2-1.0); Blood Urea Nitrogen 21 mg/dl (6-23); Calcium 9.5 mg/dl (8.5-10.1); Carbon Dioxide 27 mmol/L (21-32); Chloride 104 mmol/L (98-107); Est GFR (African American) 48.9 ml/min; Est GFR (Non-African American) 42.2 ml/min; Globulin 2.9 gm/dl (2.5-4.0); Glucose 136 mg/dl (70-99(Fasting)); Potassium 4.1 mmol/L (3.5-5.1); Sodium 138 mmol/L (136-145); Total Protein 6.9 gm/dl (6.0-8.3)
--- NOTE | 2021-04-12 15:39 | XRay Report ---
XR chest 1V portable HISTORY: Altered mental status. Assess for pneumonia. COMPARISON: Chest 03/04/2021. FINDINGS: No pneumothorax. No pleural effusions. The heart remains mildly enlarged. There is mild mechelle tral pulmonary vascular congestion without overt edema. This is improved. No new focal lung consolida tions to suggest pneumonia. IMPRESSION: Cardiomegaly with mild central pulmonary vascular congestion. ACT 112: Negative or not required by law. Electronically signed by: Iain Brewer M.D. 04/12/2021 3:38 PM
[2021-04-12 15:57] LABS: Thyroid Stimulating Hormone 6.102 uIu/ml (0.300-4.500)
--- NOTE | 2021-04-12 17:04 | CT Scan Report ---
HEAD CT NONCONTRAST CT DOSE: 537.48 mGy.cm HISTORY: Altered mental status. TECHNIQUE: Multiaxial CT images of the head were performed without the use of intravenous contrast. A utomated exposure control was utilized for this study. A dose lowering technique was utilized adheri ng to the principles of ALARA. Comparison: Head CT 01/30/2021. Findings: Mild mucosal thickening within the nasal sinuses. The mastoid air cells are clear. Surgical clips within the superior right orbit, unchanged. These appear to be abutting the globe. Embolizatio n coil adjacent to the right internal carotid artery. The calvarium and skull base are intact. There is no mass, hematoma, midline shift, acute infarct. White matter hypodensity is nonspecific but sugge stive of microvascular ischemic change. The ventricles and sulci demonstrate moderate age-related inv olutional changes. Old lacunar infarct again noted within the left basal ganglia. Impression: No significant change compared to the prior study. No acute intracranial abnormality. ACT 112: Negative or not required by law. Electronically signed by: Iain Brewer M.D. 04/12/2021 5:02 PM
--- NOTE | 2021-04-12 17:19 | History & Physical Report ---
Date of Service April 12, 2021 Assessment & Plan (1) Confusion: Plan: Mae presents with a UTI and 1 week of increased confusion. Recent history of intermittent UTIs and confusion requiring hospitalization in the previous few months. Three hospitalizations since December. They have recently been following with [facility] neurology, and report that when Mae is at her baseline she does fairly well but when she has UTI she quickly becomes agitated and confused. Her daughter reports that Mae is recently moved in with her, and they are working on getting increased care and spending down for Medicare waiver to have a caregiver in the home for her. While her daughter does not wish for Mae to be in a fpc long-term and would like to arrange with waiver and additional home health services, these are not available at this time and she does not feel she is able to safely care for Mae particularly with her recent agitation around her UTI. Confusion, improving but not at baseline. Requiring additional placement needs Recurrent for patient, worsened with gradual recovery with three hospital admissions recently Patient is living with her daughter, they are working on obtaining Medicare waiver for additional care at home but at this time are limited in resources and do not feel they can care for her safely Would like to look into temporary SNF placement at this time Mae is improved from earlier in the week, but with increased confusion in the evening and still not at her baseline. Has been following with [facility] neurology, was not recommended to start Aricept or similar medications at this time Has been on cefdinir x5 days Repeat UA/UC pending As has already completed 5 days of cefdinir for outpatient E. coli, complete 7 day course and defer additional antibiotics at this time and follow UA/UC above Patient with gradually decreasing baseline and dementia, confused but pleasant. At previous admissions has had severe sundowning. - CT-H No significant change compared to the prior study. No acute intracranial abnormality. (2) Diabetes: Plan: Goal BSG 1001 forty Patient not on antiglycemic's at home BMP daily, add SSI if persistently above goal (3) Hypertension: Plan: Lisinopril as noted below Amlodipine 2.5 mg p.o. daily (4) CAD (coronary artery disease): Plan: With history of stents Patient with intermittent demand ischemia and elevated troponin, troponin is negative on admit 04/12 No chest pain at time of admitting assessment EKG without acute findings Continue home atorvastatin, aspirin 81 mg daily Continue metoprolol succinate 50 mg p.o. nightlyhold if bradycardic Continue isosorbide mononitrate 30 mg p.o. every morning If any chest pain develops switch to medical telemetry, as no cardiac issues, troponin is normal, and is otherwise ending placement will follow on med/surg at this time (5) History of CVA with residual deficit: Plan: Patient at baseline, distal extremity strength grossly intact No acute CVA symptoms - CT-H: No significant change compared to the prior study. No acute intracranial abnormality. (6) UTI (urinary tract infection): Plan: As above Plan: Diet: Heart healthy Disposition: Medical/surgical, if any cardiac symptoms develop move to to telemetry CODE STATUS: Full code, discussed with patient and daughter at bedside. Surrogate decision maker is the patient's daughter. DVT prophylaxis: SCDs History of Present Illness Primary Care Provider: Jaguar Wall is seen at the bedside. She is oriented to place and name, but not to date. She is seen in the presence of her daughter. Per her daughter Mae has done relatively well, but with intermittent UTIs and confusion requiring hospitalization in the previous few months. Three hospitalizations since December. They have recently been following with [facility] neurology, and report that when Mae is at her baseline she does fairly well but when she has UTI she quickly becomes agitated and confused. Her daughter reports that Mae is recently moved in with her, and they are working on getting increased care and spending down for Medicare waiver to have a caregiver in the home for her. While her daughter does not wish for Mae to be in a fpc long-term and would like to arrange with waiver and additional home health services, these are not available at this time and she does not feel she is able to safely care for Mae particularly with her recent agitation around her UTI. Mae is an increased confusion for 9 days. Was seen in urgent care 5 days ago with a positive UA with urine culture speciated for E. coli, and was placed on cefdinir. Slow improvement with continued evening confusion, scratch/biting at home, and daughter concerned for her safety and impulsivity. Would like to look into SNF placement at this time. Report that Mae has had intermittent chest pain in the past with additional GERD pain that resolves with burping, none recently. No she had stents last year and these are about 40% occluded, but she has had no worsened chest pain in the previous few months and no chest pain admission. No shortness of breath. No fever, chills. No abdominal pain. UTIs usually manifest with difference in voiding volume which has been present in the last week. Denies falls. Continues to have chronic knee pain which improves with gel injections. Medical History: Reviewed Medications: Reviewed Surgical History: Reviewed Allergies: Reviewed Social History: no tobacco, etoh, or recreational drug use Code Status: Full Code, discussed w/ daughter and patient. Allergies Allergy/AdvReac Type Severity Reaction Status Date / Time cefpodoxime [From Vantin] Allergy Unknown Unknown Verified 04/12/21 17:23 Sulfa (Sulfonamide Allergy Unknown Unknown Verified 04/12/21 17:23 Antibiotics) Home Medications Medication Instructions Recorded Confirmed Type clopidogrel 75 mg tablet 75 mg PO QAM #30 tab 01/06/18 03/04/21 Rx atorvastatin 40 mg tablet (Lipitor) 40 mg PO QAM 12/22/18 03/04/21 History amlodipine 2.5 mg tablet 2.5 mg PO DAILY 03/11/20 03/04/21 History levothyroxine 137 mcg tablet 137 mcg PO DAILY 03/11/20 03/04/21 History nitroglycerin 0.4 mg sublingual 0.4 mg SUBLINGUAL UD PRN #14 tab 03/13/20 03/04/21 Rx tablet (Nitrostat) aspirin 81 mg tablet,delayed 81 mg PO QAM 05/23/20 03/04/21 History release isosorbide mononitrate 30 mg 30 mg PO QAM 05/23/20 03/04/21 History tablet,extended release 24 hr metoprolol succinate 50 mg 50 mg PO QAM 05/23/20 03/04/21 History tablet,extended release 24 hr escitalopram oxalate 5 mg tablet 5 mg PO DAILY 12/08/20 03/04/21 History acetaminophen 325 mg tablet 650 mg PO QID PRN 04/12/21 04/12/21 History (Tylenol) cefdinir 300 mg capsule 300 mg PO BID 04/12/21 04/12/21 History lisinopril 20 mg tablet 20 mg PO HS 04/12/21 04/12/21 History Past Med/Surg History Medical History Acute confusion Chest pain Diabetes History of CVA with residual deficit HTN (hypertension) Hypertension Osteoarthritis of right knee Surgical History History of cataract surgery Family History Mother , age 69 with heart disease No problems noted. Father No problems noted. Other Family history non-contributory Social History Smoking Status: Never smoker Second Hand Exposure: Yes; Hx Alcohol Use: No Hx Substance Use: No Preferred Language: Palauan Communication Ability: Effective Generalist Required: No Beliefs That Will Affect Care: None marital status: Current Living Situation: Family Current Living Situation Comment: Patient lives with her son, but her daughter and son in law also help Feels Safe at Home: Yes Assistive Devices: Walker Review of Systems Review of Systems: All systems reviewed & are unremarkable except as noted in Subjective Physical Exam Physical Exam: General: Oriented to name, oriented to building, not oriented to date. Requires frequent redirection from daughter. NAD. Cooperative. HEENT: Atraumatic, normocephalic. Visual acuity and hearing grossly intact, although somewhat hard of hearing Pulm: CTAB A&P. -wheezes, -rales, -rhonchi. Symmetrical chest rise. No increased work of breathing. No respiratory distress. Cardiac: RRR, -mrg. Radial pulses intact and symmetrical. Abdominal: Nontender, nondistended, soft. BS present. CRANIAL NERVES: II: Pupils equal and reactive, no relative afferent pupillary defect, no VF cuts III, IV, : EOM intact, no gaze preference or deviation, no nystagmus. 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 flexion/extension, interosseus LUE: 5/5 assembly line supervisor strength, finger flexion/extension, interosseus RLE: 5/5 ankle dorsiflexion/plantarflexion, some pain in knees on knee flexion/attempted hip flexion LLE: 5/5 ankle dorsiflexion/plantarflexion, some pain in knees on knee flexion and attempted hip flexion SENSORY: Normal to touch in upper and lower extremities without deficit or asymmetry Results & Data Results & Data ([facility]) Vital Signs (Past 12 Hours) Vital Signs Temp Pulse Resp BP Pulse Ox 04/12/21 14:41 36.2 C L 65 20 149/63 H 96 PG Care Time/CCT Total # of Minutes Spent Total Time Spent with Patient: Total time spent is greater than 50% in coordination of care (as documented) at patient's floor/unit and/or counseling patient: Coding Level of Care Code INT OBSERVATION CARE 50M LVL 2 Diagnoses Confusion R41.0 Diabetes E11.9 Hypertension I10 Hypertension type: unspecified CAD (coronary artery disease) I25.10 History of CVA with residual deficit I69.30 UTI (urinary tract infection) N39.0 Hematuria presence: without hematuria Urinary tract infection type: site unspecified (1) Hypertension Hypertension type: unspecified Qualified Code(s): I10 - Essential (primary) hypertension (2) UTI (urinary tract infection) Hematuria presence: without hematuria Urinary tract infection type: site unspecified Qualified Code(s): N39.0 - Urinary tract infection, site not specified
[2021-04-12 17:20] LABS: T4 Free Thyroxine 1.11 ng/dl (0.61-1.60)
[2021-04-12 17:30] LABS: Appearance Urine Clear (Clear); Bacteria Urine Automated Negative (Negative); Bilirubin Urine Negative (Negative); Blood Urine Trace (Negative); Color Urine Yellow; Epithelial Cell Urine Auto >30 /lpf (0-5); Glucose Urine UA Negative (Negative); Ketones Urine Trace (Negative); Leukocyte Esterase Urine Negative (Negative); Nitrite Urine Negative (Negative); Protein Urine 2+ (Negative); Specific Gravity Urine 1.021 (1.000-1.030); Urobilinogen Urine Negative (Negative)
[2021-04-12] MEDS ORDERED: ACETAMINOPHEN 325 MG TAB PO PRN (20:11)
[2021-04-12] MEDS ORDERED: NITROGLYCERIN SL 0.4 MG/TAB TAB SL PRN (20:11)
[2021-04-12] MEDS: lisinopril 20 MG TAB PO SCH (21:50)
[2021-04-12] MEDS: CEFDINIR 300 MG CAP PO SCH (21:50)
[2021-04-12] MEDS: HEPARIN SOD 5,000 UNIT/0.5 ML VIAL SQ SCH (21:51)
[2021-04-13] MEDS: LEVOTHYROXINE SODIUM 137 MCG TABLET PO SCH (05:57)
[2021-04-13] MEDS: amLODIPine BESYLATE 5 MG TAB PO SCH (08:41)
[2021-04-13 08:42] LABS: Basophils # (auto) 0.03 K/uL (0-0.2); Basophils % (auto) 0.5 %; Eosinophils # (auto) 0.27 K/uL (0-0.5); Eosinophils % (auto) 4.9 %; Hematocrit (blood only) 37.2 % (37-47); Lymphocytes # (auto) 1.73 K/uL (1.2-3.4); Lymphocytes % (auto) 31.6 %; Mean Corpuscular Hemoglobin 27.8 pg (25-34); Mean Corpuscular Hgb Conc 32.3 g/dL (32-36); Mean Corpuscular Volume 86.3 fL (80-100); Mean Platelet Volume 10.4 fL (7.4-10.4); Monocytes # (auto) 0.56 K/uL (0.11-0.59); Monocytes % (auto) 10.2 %; Neutrophils # (auto) 2.89 K/uL (1.4-6.5); Neutrophils % (auto) 52.8 %; Platelet Count 254 K/uL (130-400); RDW Coefficient of Variation 13.1 % (11.5-14.5); Red Blood Count 4.31 M/uL (4.2-5.4); White Blood Count 5.48 K/uL (4.8-10.8)
[2021-04-13] MEDS: CEFDINIR 300 MG CAP PO SCH ×2 (08:43→21:13)
[2021-04-13] MEDS: ASPIRIN 81 MG ECTAB PO SCH (08:43)
[2021-04-13] MEDS: ATORVASTATIN 40 MG TAB PO SCH (08:43)
[2021-04-13] MEDS: ESCITALOPRAM OXALATE 10 MG TAB PO SCH (08:44)
[2021-04-13] MEDS: CLOPIDOGREL BISULFATE 75 MG TAB PO SCH (08:44)
[2021-04-13] MEDS: HEPARIN SOD 5,000 UNIT/0.5 ML VIAL SQ SCH ×2 (08:44→21:14)
[2021-04-13] MEDS: ISOSORBIDE MONO EXTENDED REL 30 MG TABCR PO SCH (08:45)
[2021-04-13] MEDS: METOPROLOL SUCC 50MG EXT REL TAB PO SCH (08:45)
[2021-04-13 09:03] LABS: BUN Creatinine Ratio 17.3 (10-20); Calcium 9.3 mg/dl (8.5-10.1); Creatinine Clr Calc Pharmacy 38.2 ml/min; Est GFR (African American) 56.3 ml/min; Est GFR (Non-African American) 48.6 ml/min; Potassium 3.9 mmol/L (3.5-5.1)
--- NOTE | 2021-04-13 14:22 | Hospitalist Progress Note ---
Date of Service April 13, 2021 Assessment & Plan (1) Confusion: Plan: Mae presents with a UTI and 1 week of increased confusion. Recent history of intermittent UTIs and confusion requiring hospitalization in the previous few months. Three hospitalizations since December. They have recently been following with [facility] neurology, and report that when Mae is at her baseline she does fairly well but when she has UTI she quickly becomes agitated and confused. Her daughter reports that Mae is recently moved in with her, and they are working on getting increased care and spending down for Medicare waiver to have a caregiver in the home for her. While her daughter does not wish for Mae to be in a longterm long-term and would like to arrange with waiver and additional home health services, these are not available at this time and she does not feel she is able to safely care for Mae particularly with her recent agitation around her UTI. Confusion, improving but not at baseline. Requiring additional placement needs Recurrent for patient, worsened with gradual recovery with three hospital admissions recently Patient is living with her daughter, they are working on obtaining Medicare waiver for additional care at home but at this time are limited in resources and do not feel they can care for her safely Would like to look into temporary SNF placement at this time Mea is improved from earlier in the week, but with increased confusion in the evening and still not at her baseline. Has been following with [facility] neurology, was not recommended to start Aricept or similar medications at this time Has been on cefdinir x5 days Repeat UA/UC pending As has already completed 5 days of cefdinir for outpatient E. coli, complete 7 day course and defer additional antibiotics at this time and follow UA/UC above Patient with gradually decreasing baseline and dementia, confused but pleasant. At previous admissions has had severe sundowning. - CT-H No significant change compared to the prior study. No acute intracranial abnormality. No leukocytosis, afebrile, vital signs reasonable and stable 04/13 PT/OT pending, CM consulted (2) Diabetes: Plan: Goal BSG 581954 Patient not on antiglycemic's at home BMP daily, add SSI if persistently above goal (3) Hypertension: Plan: Lisinopril as noted below Amlodipine 2.5 mg p.o. daily (4) CAD (coronary artery disease): Plan: With history of stents Patient with intermittent demand ischemia and elevated troponin, troponin is negative on admit 04/12 No chest pain at time of admitting assessment EKG without acute findings Continue home atorvastatin, aspirin 81 mg daily Continue metoprolol succinate 50 mg p.o. nightlyhold if bradycardic Continue isosorbide mononitrate 30 mg p.o. every morning If any chest pain develops switch to medical telemetry, as no cardiac issues, troponin is normal, and is otherwise ending placement will follow on med/surg at this time (5) History of CVA with residual deficit: Plan: Patient at baseline, distal extremity strength grossly intact No acute CVA symptoms - CT-H: No significant change compared to the prior study. No acute intracranial abnormality. (6) UTI (urinary tract infection): Plan: As above Plan: Diet: Heart healthy Disposition: Medical/surgical, if any cardiac symptoms develop move to to telemetry CODE STATUS: Full code, discussed with patient and daughter at bedside. Surrog ate decision maker is the patient's daughter. DVT prophylaxis: SCDs Admission and Anticipated Discharge Date Admission Date: April 12, 2021 Subjective Seen at bedside this morning. Oriented to name only. Comfortable in no acute distress. Sleeping, goes back to sleep after exam but arouses easily transiently. Review of Systems Review of Systems: Somewhat limited by cognitive status, but arouses easily and 10 point review of systems grossly negative. Physical Exam Physical Exam: General: Oriented to name only this morning. NAD. Cooperative. HEENT: Atraumatic, normocephalic. Visual acuity and hearing grossly intact, although somewhat hard of hearing Pulm: CTAB A&P. -wheezes, -rales, -rhonchi. Symmetrical chest rise. No increased work of breathing. No respiratory distress. Cardiac: RRR, -mrg. Radial pulses intact and symmetrical. Abdominal: Nontender, nondistended, soft. BS present. Results & Data Results & Data ([facility]) Vital Signs (Past 12 Hours) Vital Signs Temp Pulse Pulse Resp BP Pulse Ox 04/13/21 08:40 61 141/65 H 04/13/21 07:35 36.5 C 62 20 154/70 H 97 PG Care Time/CCT Total # of Minutes Spent Total Time Spent with Patient: Total time spent is greater than 50% in coordination of care (as documented) at patient's floor/unit and/or counseling patient: Coding Level of Care Code 75550 Subseq Hosp Care Lvl 1 Diagnoses Confusion R41.0 Diabetes E11.9 Hypertension I10 Hypertension type: unspecified CAD (coronary artery disease) I25.10 History of CVA with residual deficit I69.30 UTI (urinary tract infection) N39.0 Hematuria presence: without hematuria Urinary tract infection type: site unspecified (1) Hypertension Hypertension type: unspecified Qualified Code(s): I10 - Essential (primary) hypertension (2) UTI (urinary tract infection) Hematuria presence: without hematuria Urinary tract infection type: site unspecified Qualified Code(s): N39.0 - Urinary tract infection, site not specified
[2021-04-13] MEDS ORDERED: OLANZapine 10 MG/2.1 ML SDV IM PRN (14:25)
[2021-04-13] MEDS: lisinopril 20 MG TAB PO SCH (21:13)
[2021-04-14] MEDS: LEVOTHYROXINE SODIUM 137 MCG TABLET PO SCH (06:13)
[2021-04-14 07:20] LABS: Basophils # (auto) 0.06 K/uL (0-0.2); Eosinophils # (auto) 0.27 K/uL (0-0.5); Eosinophils % (auto) 4.6 %; Hematocrit (blood only) 37.6 % (37-47); Hemoglobin 12.3 g/dL (12.0-16.0); Immature Granulocytes # (auto) 0.01 K/uL (0.00-0.02); Immature Granulocytes % (auto) 0.2 %; Lymphocytes # (auto) 1.68 K/uL (1.2-3.4); Lymphocytes % (auto) 28.9 %; Mean Corpuscular Hemoglobin 28.1 pg (25-34); Mean Corpuscular Hgb Conc 32.7 g/dL (32-36); Mean Platelet Volume 10.5 fL (7.4-10.4); Monocytes # (auto) 0.68 K/uL (0.11-0.59); Monocytes % (auto) 11.7 %; Neutrophils # (auto) 3.12 K/uL (1.4-6.5); Neutrophils % (auto) 53.6 %; Platelet Count 253 K/uL (130-400); RDW Standard Deviation 41.3 fL (36.4-46.3); Red Blood Count 4.37 M/uL (4.2-5.4); White Blood Count 5.82 K/uL (4.8-10.8)
[2021-04-14 07:44] LABS: BUN Creatinine Ratio 18.1 (10-20); Calcium 9.2 mg/dl (8.5-10.1); Creatinine Clr Calc Pharmacy 34.3 ml/min; Est GFR (African American) 49.4 ml/min; Est GFR (Non-African American) 42.6 ml/min; Potassium 4.2 mmol/L (3.5-5.1)
[2021-04-14] MEDS: ESCITALOPRAM OXALATE 10 MG TAB PO SCH (08:15)
[2021-04-14] MEDS: amLODIPine BESYLATE 5 MG TAB PO SCH ×2 (08:16→11:47)
[2021-04-14] MEDS: METOPROLOL SUCC 50MG EXT REL TAB PO SCH (08:16)
[2021-04-14] MEDS: ATORVASTATIN 40 MG TAB PO SCH (08:16)
[2021-04-14] MEDS: ASPIRIN 81 MG ECTAB PO SCH (08:17)
[2021-04-14] MEDS: CLOPIDOGREL BISULFATE 75 MG TAB PO SCH (08:18)
[2021-04-14] MEDS: ISOSORBIDE MONO EXTENDED REL 30 MG TABCR PO SCH (08:18)
[2021-04-14] MEDS: CEFDINIR 300 MG CAP PO SCH (08:18)
[2021-04-14] MEDS: HEPARIN SOD 5,000 UNIT/0.5 ML VIAL SQ SCH ×2 (08:19→21:18)
[2021-04-14] MEDS ORDERED: amLODIPine BESYLATE 5 MG TAB PO ONE (11:00)
--- NOTE | 2021-04-14 16:56 | Hospitalist Progress Note ---
Date of Service April 14, 2021 Assessment & Plan (1) Confusion: Plan: She appears to be back to her mental status baseline. Metabolic encephalopathy appears to have resolved. She has baseline dementia. Continue supportive care. Completed cefdinir for 5 days. (2) Diabetes: Plan: Goal BSG 175451 Patient not on antiglycemic's at home BMP daily, add SSI if persistently above goal. ADA diet (3) Hypertension: Plan: Lisinopril and amlodipine both uptitrated today, April 14. Will follow (4) CAD (coronary artery disease): Plan: With history of stents. Stable. Medical management (5) History of CVA with residual deficit: Plan: Patient at baseline, distal extremity strength grossly intact No acute CVA symptoms - CT-H: No significant change compared to the prior study. No acute intracranial abnormality. (6) UTI (urinary tract infection): Plan: As above. Treated and resolved Plan: Disposition: SNF placement at discharge. Hopefully tomorrowApril 15 CODE STATUS: Full code Admission and Anticipated Discharge Date Admission Date: April 14, 2021 Subjective Alert and pleasant. She seems to have baseline dementia. Blood pressure is elevated and both amlodipine and lisinopril uptitrated. Metabolic encephalopathy appears to have resolved. Anticipate discharge back to SNF facility on oral antibiotic hopefully tomorrowApril 15 Review of Systems Review of Systems: Constitutional-no fever or chills ENT-no blurred vision, no double vision, no epistaxis, no sore throat Respiratory-no cough, no wheezing, no shortness of breath Cardiac-no palpitations, no chest pain, no syncope GI-no nausea, vomiting, diarrhea, melena, hematochezia -no urinary retention, no urinary incontinence, no dysuria, no hematuria Musculoskeletal-no joint pain, no muscle tenderness Skin-no bruising, no rashes, no pruritus Neuro-no isolated weakness, no paresthesia, no weakness Psych-no depression, no anxiety Physical Exam Physical Exam: General-alert, pleasant, no fevers, no chills HEENT-head atraumatic and normocephalic, TMs intact bilaterally, pupils equal and reactive to light, extraocular muscles intact Neck-no lymphadenopathy or thyromegaly, trachea midline Chest-clear to auscultation percussion. No rales wheezing or rhonchi Cardiac-regular rate and rhythm, normal S1 and S2, no murmurs Abdomen-normal bowel sounds, nontender, no hepatosplenomegaly Extremities-no cyanosis, clubbing, or edema Neuro-cranial nerves II through XII intact, motor and sensory function within normal limits, strength symmetrical , no focal deficits Psych-normal affect, normal mood Results & Data Results & Data ([facility]) Vital Signs (Past 12 Hours) Vital Signs Temp Pulse Resp BP Pulse Ox 04/14/21 11:45 79 125/56 L 04/14/21 08:12 36.4 C L 63 16 190/76 H 96 Laboratory Results 04/14/21 07:04 04/14/21 07:04 PG Care Time/CCT Total # of Minutes Spent Total Time Spent with Patient: Total time spent is greater than 50% in coordination of care (as documented) at patient's floor/unit and/or counseling patient: Coding Level of Care Code 61365 Subseq Hosp Care Lvl 3 Diagnoses Confusion R41.0 Diabetes E11.9 Hypertension I10 Hypertension type: unspecified CAD (coronary artery disease) I25.10 History of CVA with residual deficit I69.30 UTI (urinary tract infection) N39.0 Hematuria presence: without hematuria Urinary tract infection type: site unspecified (1) Hypertension Hypertension type: unspecified Qualified Code(s): I10 - Essential (primary) hypertension (2) UTI (urinary tract infection) Hematuria presence: without hematuria Urinary tract infection type: site unspecified Qualified Code(s): N39.0 - Urinary tract infection, site not specified
[2021-04-14] MEDS: lisinopril 40 MG TAB PO SCH (21:18)
--- NOTE | 2021-04-14 21:51 | Electrocardiogram Report ---
Test Reason : Blood Pressure : / mmHG Vent. Rate : 055 BPM Atrial Rate : 055 BPM P-R Int : 174 ms QRS Dur : 092 ms QT Int : 430 ms P-R-T Axes : 038 -29 015 degrees QTc Int : 411 ms Sinus bradycardia Septal infarct , age undetermined Abnormal ECG When compared with ECG of 04-MAR-2021 18:09, Septal infarct is now Present T wave amplitude has increased in Lateral leads Confirmed by Gabriel Mario ([id number]) on 04/14/2021 9:50:36 PM Referred By: REFERRED SELF Confirmed By:Gabriel Mario
[2021-04-15] MEDS: LEVOTHYROXINE SODIUM 137 MCG TABLET PO SCH (06:23)
[2021-04-15 06:36] LABS: Basophils # (auto) 0.04 K/uL (0-0.2); Basophils % (auto) 0.6 %; Eosinophils # (auto) 0.23 K/uL (0-0.5); Eosinophils % (auto) 3.5 %; Hematocrit (blood only) 36.3 % (37-47); Immature Granulocytes # (auto) 0.02 K/uL (0.00-0.02); Immature Granulocytes % (auto) 0.3 %; Lymphocytes # (auto) 2.11 K/uL (1.2-3.4); Lymphocytes % (auto) 31.9 %; Mean Corpuscular Hemoglobin 28.2 pg (25-34); Mean Corpuscular Hgb Conc 33.1 g/dL (32-36); Mean Corpuscular Volume 85.4 fL (80-100); Mean Platelet Volume 10.5 fL (7.4-10.4); Monocytes # (auto) 0.65 K/uL (0.11-0.59); Monocytes % (auto) 9.8 %; Neutrophils # (auto) 3.56 K/uL (1.4-6.5); Neutrophils % (auto) 53.9 %; Platelet Count 258 K/uL (130-400); RDW Coefficient of Variation 13.3 % (11.5-14.5); RDW Standard Deviation 41.3 fL (36.4-46.3); Red Blood Count 4.25 M/uL (4.2-5.4); White Blood Count 6.61 K/uL (4.8-10.8)
[2021-04-15 06:56] LABS: BUN Creatinine Ratio 23.1 (10-20); Est GFR (African American) 48.9 ml/min; Est GFR (Non-African American) 42.2 ml/min
[2021-04-15] MEDS: ISOSORBIDE MONO EXTENDED REL 30 MG TABCR PO SCH (08:20)
[2021-04-15] MEDS: HEPARIN SOD 5,000 UNIT/0.5 ML VIAL SQ SCH ×2 (08:21→21:26)
[2021-04-15] MEDS: amLODIPine BESYLATE 5 MG TAB PO SCH (08:21)
[2021-04-15] MEDS: ASPIRIN 81 MG ECTAB PO SCH (08:21)
[2021-04-15] MEDS: ESCITALOPRAM OXALATE 10 MG TAB PO SCH (08:21)
[2021-04-15] MEDS: METOPROLOL SUCC 50MG EXT REL TAB PO SCH (08:21)
[2021-04-15] MEDS: CLOPIDOGREL BISULFATE 75 MG TAB PO SCH (08:21)
[2021-04-15] MEDS: ATORVASTATIN 40 MG TAB PO SCH (08:21)
--- NOTE | 2021-04-15 12:50 | Discharge Summary ---
Date of Service April 15, 2021 Admission HPI Per Admitting Provider Mae is seen at the bedside. She is oriented to place and name, but not to date. She is seen in the presence of her daughter. Per her daughter Mae has done relatively well, but with intermittent UTIs and confusion requiring hospitalization in the previous few months. Three hospitalizations since December. They have recently been following with [facility] neurology, and report that when Mae is at her baseline she does fairly well but when she has UTI she quickly becomes agitated and confused. Her daughter reports that Mae is recently moved in with her, and they are working on getting increased care and spending down for Medicare waiver to have a caregiver in the home for her. While her daughter does not wish for Mae to be in a chcf long-term and would like to arrange with waiver and additional home health services, these are not available at this time and she does not feel she is able to safely care for Mae particularly with her recent agitation around her UTI. Mae is an increased confusion for 9 days. Was seen in urgent care 5 days ago with a positive UA with urine culture speciated for E. coli, and was placed on cefdinir. Slow improvement with continued evening confusion, scratch/biting at home, and daughter concerned for her safety and impulsivity. Would like to look into SNF placement at this time. Report that Mae has had intermittent chest pain in the past with additional GERD pain that resolves with burping, none recently. No she had stents last year and these are about 40% occluded, but she has had no worsened chest pain in the previous few months and no chest pain admission. No shortness of breath. No fever, chills. No abdominal pain. UTIs usually manifest with difference in voiding volume which has been present in the last week. Denies falls. Continues to have chronic knee pain which improves with gel injections. Medical History: Reviewed Medications: Reviewed Surgical History: Reviewed Allergies: Reviewed Social History: no tobacco, etoh, or recreational drug use Code Status: Full Code, discussed w/ daughter and patient. Principal Diagnosis UTI, metabolic encephalopathy Discharge Exam Psychiatric baseline dementia Discharge Data Allergies Allergy/AdvReac Type Severity Reaction Status Date / Time cefpodoxime [From Vantin] Allergy Unknown Unknown Verified 04/12/21 17:23 Sulfa (Sulfonamide Allergy Unknown Unknown Verified 04/12/21 17:23 Antibiotics) Consultations 04/12/21 16:54 ED Decision to Admit Stat Ordered Studies 04/12/21 15:13 CT head/brain wo con Stat Hospital Course (1) Confusion: She appears to be back to her mental status baseline. Metabolic encephalopathy appears to have resolved. She has baseline dementia. Continue supportive care. Completed cefdinir for 5 days. (2) Diabetes: Goal BSG 936206 Patient not on antiglycemic's at home BMP daily, add SSI if persistently above goal. ADA diet (3) Hypertension: Lisinopril and amlodipine both uptitrated on April 14. Improved. (4) CAD (coronary artery disease): With history of stents. Stable. Medical management (5) History of CVA with residual deficit: Patient at baseline, distal extremity strength grossly intact No acute CVA symptoms - CT-H: No significant change compared to the prior study. No acute intracranial abnormality. (6) UTI (urinary tract infection): As above. Treated and resolved Disposition: SNF placement at discharge. Hopefully today, April 15 CODE STATUS: Full code Total Time Total Time Spent Total Time Spent (In Minutes): 35 minutes Discharge Plan Discharge Items Patient Disposition: Transfer [facility] Fac Reason For Visit: CONFUSION, UTI Discharge Diagnosis: UTI, metabolic encephalopathy Activity: Resume your previous activity Non-emergency contact: Primary Care Provider Call non-emergency contact if: you have any medication questions and your symptoms worsen Follow-up/Referrals: Jaguar Kelly [Primary Care Provider] - Diet: Carb Consistent or DM2 Addtl Attending Provider Instructions: resume previous orders Pending Studies at Discharge: No Stand-Alone Forms: My [facility] Skilled Items Patient informed of condition?: Yes DNR: Yes Discharge Level of Care: Skilled Communicable Disease: No Discharge Prognosis: Stable Lines: None Urinary Catheter: No Medications and DC Order Prescriptions: New amlodipine [Norvasc] 5 mg Tablet 5 mg PO DAILY Qty: 30 RF: 0 Continued clopidogrel 75 mg Tablet 75 mg PO QAM Qty: 30 RF: 3 atorvastatin [Lipitor] 40 mg tablet 40 mg PO QAM RF: 0 levothyroxine 137 mcg tablet 137 mcg PO DAILY RF: 0 nitroglycerin [Nitrostat] 0.4 mg Tablet, Sublingual 0.4 mg sublingual UD PRN (Reason: chest pain) Qty: 14 RF: 0 acetaminophen [Tylenol] 325 mg Tablet 650 mg PO QID PRN (Reason: Pain) RF: 0 lisinopril 20 mg tablet 20 mg PO HS RF: 0 metoprolol succinate 50 mg tablet extended release 24 hr 50 mg PO QAM RF: 0 isosorbide mononitrate 30 mg tablet extended release 24 hr 30 mg PO QAM RF: 0 aspirin 81 mg tablet,delayed release (DR/EC) 81 mg PO QAM RF: 0 escitalopram oxalate 5 mg tablet 5 mg PO DAILY RF: 0 Discontinued amlodipine 2.5 mg tablet 2.5 mg PO DAILY RF: 0 cefdinir 300 mg capsule 300 mg PO BID RF: 0 Discharge Orders: Discharge Order (Routine); Ordered 04/15/21 Ordered By: Zacarias Bo Admission Data Admit Date/Time: 04/14/21 12:18 Attending Provider: Zacarias Bo Admit Provider: Junior Torres Primary Care Provider: Jaguar Kelly Other Providers: Junior Torres ; Katie Arriola ; Katie Martinez at [place] [facility] Coding Level of Care Code D/C DAY MANAGEMENT >30 MINS Diagnoses Confusion R41.0 Diabetes E11.9 Hypertension I10 Hypertension type: unspecified CAD (coronary artery disease) I25.10 History of CVA with residual deficit I69.30 UTI (urinary tract infection) N39.0 Hematuria presence: without hematuria Urinary tract infection type: site unspecified
[2021-04-15] MEDS: lisinopril 40 MG TAB PO SCH (21:26)
[2021-04-16] MEDS: LEVOTHYROXINE SODIUM 137 MCG TABLET PO SCH (05:51)
[2021-04-16] MEDS: ISOSORBIDE MONO EXTENDED REL 30 MG TABCR PO SCH (08:23)
[2021-04-16] MEDS: amLODIPine BESYLATE 5 MG TAB PO SCH (08:24)
[2021-04-16] MEDS: ESCITALOPRAM OXALATE 10 MG TAB PO SCH (08:24)
[2021-04-16] MEDS: ATORVASTATIN 40 MG TAB PO SCH (08:24)
[2021-04-16] MEDS: METOPROLOL SUCC 50MG EXT REL TAB PO SCH (08:24)
[2021-04-16] MEDS: ASPIRIN 81 MG ECTAB PO SCH (08:25)
[2021-04-16] MEDS: HEPARIN SOD 5,000 UNIT/0.5 ML VIAL SQ SCH (08:25)
[2021-04-16] MEDS: CLOPIDOGREL BISULFATE 75 MG TAB PO SCH (08:25)
--- NOTE | 2021-04-16 12:02 | Discharge Summary ---
Date of Service April 16, 2021 Admission HPI Per Admitting Provider Mae is seen at the bedside. She is oriented to place and name, but not to date. She is seen in the presence of her daughter. Per her daughter Mae has done relatively well, but with intermittent UTIs and confusion requiring hospitalization in the previous few months. Three hospitalizations since December. They have recently been following with [facility] neurology, and report that when Mae is at her baseline she does fairly well but when she has UTI she quickly becomes agitated and confused. Her daughter reports that Mae is recently moved in with her, and they are working on getting increased care and spending down for Medicare waiver to have a caregiver in the home for her. While her daughter does not wish for Mae to be in a shelter long-term and would like to arrange with waiver and additional home health services, these are not available at this time and she does not feel she is able to safely care for Mae particularly with her recent agitation around her UTI. Mae is an increased confusion for 9 days. Was seen in urgent care 5 days ago with a positive UA with urine culture speciated for E. coli, and was placed on cefdinir. Slow improvement with continued evening confusion, scratch/biting at home, and daughter concerned for her safety and impulsivity. Would like to look into SNF placement at this time. Report that Mae has had intermittent chest pain in the past with additional GERD pain that resolves with burping, none recently. No she had stents last year and these are about 40% occluded, but she has had no worsened chest pain in the previous few months and no chest pain admission. No shortness of breath. No fever, chills. No abdominal pain. UTIs usually manifest with difference in voiding volume which has been present in the last week. Denies falls. Continues to have chronic knee pain which improves with gel injections. Medical History: Reviewed Medications: Reviewed Surgical History: Reviewed Allergies: Reviewed Social History: no tobacco, etoh, or recreational drug use Code Status: Full Code, discussed w/ daughter and patient. Principal Diagnosis UTI, metabolic encephalopathy Discharge Exam baseline dementia. Otherwise normal physical exam for age Discharge Data Allergies Allergy/AdvReac Type Severity Reaction Status Date / Time cefpodoxime [From Vantin] Allergy Unknown Unknown Verified 04/12/21 17:23 Sulfa (Sulfonamide Allergy Unknown Unknown Verified 04/12/21 17:23 Antibiotics) Consultations 02/12/22 16:54 ED Decision to Admit Stat Ordered Studies 04/12/21 15:13 CT head/brain wo con Stat Hospital Course (1) Confusion: She appears to be back to her mental status baseline. Metabolic encephalopathy appears to have resolved. She has baseline dementia. Continue supportive care. Completed cefdinir for 5 days. (2) Diabetes: Goal BSG 474103 Patient not on antiglycemic's at home BMP daily, add SSI if persistently above goal. ADA diet (3) Hypertension: Lisinopril and amlodipine both uptitrated on April 14. Improved. (4) CAD (coronary artery disease): With history of stents. Stable. Medical management (5) History of CVA with residual deficit: Patient at baseline, distal extremity strength grossly intact No acute CVA symptoms - CT-H: No significant change compared to the prior study. No acute intracranial abnormality. (6) UTI (urinary tract infection): As above. Treated and resolved Disposition: SNF placement at discharge today, April 16 CODE STATUS: Full code Total Time Total Time Spent Total Time Spent (In Minutes): 35 minutes Discharge Plan Discharge Items Patient Disposition: Transfer [facility] Fac Reason For Visit: CONFUSION, UTI Discharge Diagnosis: UTI, metabolic encephalopathy Activity: Resume your previous activity Non-emergency contact: Primary Care Provider Call non-emergency contact if: you have any medication questions and your sym ptoms worsen Follow-up/Referrals: Jaguar Kelly [Primary Care Provider] - Diet: Carb Consistent or DM2 Addtl Attending Provider Instructions: resume previous orders Pending Studies at Discharge: No Stand-Alone Forms: My [facility] Skilled Items Patient informed of condition?: Yes DNR: Yes Discharge Level of Care: Skilled Communicable Disease: No Discharge Prognosis: Stable Lines: None Urinary Catheter: No Medications and DC Order Prescriptions: New amlodipine [Norvasc] 5 mg Tablet 5 mg PO DAILY Qty: 30 RF: 0 Continued clopidogrel 75 mg Tablet 75 mg PO QAM Qty: 30 RF: 3 atorvastatin [Lipitor] 40 mg tablet 40 mg PO QAM RF: 0 levothyroxine 137 mcg tablet 137 mcg PO DAILY RF: 0 nitroglycerin [Nitrostat] 0.4 mg Tablet, Sublingual 0.4 mg sublingual UD PRN (Reason: chest pain) Qty: 14 RF: 0 acetaminophen [Tylenol] 325 mg Tablet 650 mg PO QID PRN (Reason: Pain) RF: 0 lisinopril 20 mg tablet 20 mg PO HS RF: 0 metoprolol succinate 50 mg tablet extended release 24 hr 50 mg PO QAM RF: 0 isosorbide mononitrate 30 mg tablet extended release 24 hr 30 mg PO QAM RF: 0 aspirin 81 mg tablet,delayed release (DR/EC) 81 mg PO QAM RF: 0 escitalopram oxalate 5 mg tablet 5 mg PO DAILY RF: 0 Discontinued amlodipine 2.5 mg tablet 2.5 mg PO DAILY RF: 0 cefdinir 300 mg capsule 300 mg PO BID RF: 0 Discharge Orders: Discharge Order (Routine); Ordered 04/16/21 Ordered By: Zacarias Bo Admission Data Admit Date/Time: 04/14/21 12:18 Attending Provider: Zacarias Bo Admit Provider: Junior Torres Primary Care Provider: Jaguar Kelly Other Providers: Junior Torres ; Katie Arriola ; Katie Martinez at [place] Coding Level of Care Code D/C DAY MANAGEMENT >30 MINS Diagnoses Confusion R41.0 Diabetes E11.9 Hypertension I10 Hypertension type: unspecified CAD (coronary artery disease) I25.10 History of CVA with residual deficit I69.30 UTI (urinary tract infection) N39.0 Hematuria presence: without hematuria Urinary tract infection type: site unspecified
== END 2021-04-16 17:55 ==
LOC: 3W 14:39 → ED 14:39 → SUATTDRO 18:07 → 3W 19:56
DX: F03.90 Unspecified dementia, unspecified severity, without behavioral disturbance, psychotic disturbance, mood disturbance, and anxiety; Z79.82 Long term (current) use of aspirin; Z88.2 Allergy status to sulfonamides; I25.10 Atherosclerotic heart disease of native coronary artery without angina pectoris; E11.9 Type 2 diabetes mellitus without complications; Z86.73 Personal history of transient ischemic attack (TIA), and cerebral infarction without residual deficits; R41.0 Disorientation, unspecified; I10 Essential (primary) hypertension; N39.0 Urinary tract infection, site not specified; Z79.890 Hormone replacement therapy; Z79.899 Other long term (current) drug therapy; M17.11 Unilateral primary osteoarthritis, right knee; Z88.8 Allergy status to other drugs, medicaments and biological substances; G93.41 Metabolic encephalopathy

== ENCOUNTER 2021-06-18 07:22 | Observation (INO) ==
[2021-06-18] MEDS ORDERED: SODIUM CHLORIDE 0.9% 500 ML IV ONE (07:34)
--- NOTE | 2021-06-18 07:42 | Emergency Department Note ---
History of Present Illness General Chief complaint: Fall Time Seen by Provider: 06/18/21 07:30 History of Present Illness Maximum Pain Intensity: 8 85-year-old female, history of dementia, CVA and coronary artery disease on daily Plavix, who presents to the emergency department via ambulance for evaluation of injuries after suffering a fall. According to EMS, the patient lives with her daughter. Her daughter and son-in-law heard her get up around 3 AM this morning. They went to her room around 5:30 AM, she was found on the floor and responsive. Patient does have history of dementia and was not able to provide any significant history to EMS crew. EMS crew noted some high blood from the right side of the mouth. They also noticed some bruising along the right shoulder and rib region. No other open wounds were noted during transport. Family were not present at the time of my examination with the patient. Home Medications Medication Instructions Recorded Confirmed Type clopidogrel 75 mg tablet 75 mg PO QAM #30 tab 01/06/18 06/18/21 Rx atorvastatin 40 mg tablet (Lipitor) 40 mg PO HS 12/22/18 06/18/21 History levothyroxine 137 mcg tablet 137 mcg PO DAILY 03/11/20 06/18/21 History nitroglycerin 0.4 mg sublingual 0.4 mg SUBLINGUAL UD PRN #14 tab 03/13/20 06/18/21 Rx tablet (Nitrostat) aspirin 81 mg tablet,delayed 81 mg PO QAM 05/23/20 06/18/21 History release isosorbide mononitrate 30 mg 30 mg PO QAM 05/23/20 06/18/21 History tablet,extended release 24 hr metoprolol succinate 50 mg 50 mg PO QAM 05/23/20 06/18/21 History tablet,extended release 24 hr escitalopram oxalate 5 mg tablet 5 mg PO DAILY 12/08/20 06/18/21 History acetaminophen 325 mg tablet 650 mg PO QID PRN 04/12/21 06/18/21 History (Tylenol) pantoprazole 40 mg tablet,delayed 40 mg PO DAILY 05/16/21 06/18/21 History release amlodipine 2.5 mg tablet 2.5 mg PO DAILY 06/18/21 06/18/21 History cefdinir 300 mg capsule 300 mg PO BID 06/18/21 06/18/21 History lisinopril 20 1 tab PO DAILY 06/18/21 06/18/21 History mg-hydrochlorothiazide 12.5 mg tablet Allergies Allergy/AdvReac Type Severity Reaction Status Date / Time cefpodoxime [From Vantin] Allergy Unknown Unknown Verified 06/18/21 14:46 Sulfa (Sulfonamide Allergy Unknown Unknown Verified 06/18/21 14:46 Antibiotics) Past Med/Surg History Medical History Acute confusion Chest pain Diabetes History of CVA with residual deficit HTN (hypertension) Hypertension Osteoarthritis of right knee Surgical History History of cataract surgery Family History Mother , age 69 with heart disease No problems noted. Father No problems noted. Other Family history non-contributory Social History Smoking Status: Unknown if ever smoked Second Hand Exposure: Yes; Hx Alcohol Use: No Hx Substance Use: No Preferred Language: Maltese Communication Ability: Impaired Certified Wellness Program Manager Required: No Beliefs That Will Affect Care: None marital status: Current Living Situation: Family Current Living Situation Comment: Patient lives with her son, but her daughter and son in law also help How many Children do You have: 2 Feels Safe at Home: Yes Assistive Devices: Denture - Upper Review of Systems Review of systems could not be performed given patient's dementia Physical Exam Vital Signs Vital Signs - 24 hr 06/18/21 07:28 06/18/21 07:40 06/18/21 07:53 Temperature 36.5 C Temperature Source Oral Pulse Rate 76 67 60 Pulse Rate [Apical] Pulse Rate from SpO2 Sensor 67 Pulse Rhythm Regular Pulse Strength Normal Respiratory Rate 20 17 Respiratory Effort / Characteristics Non-Labored Spontaneous Respiratory Depth Normal Respiratory Pattern Regular Blood Pressure 156/100 H Blood Pressure [Left Arm] Blood Pressure Mean 118 Blood Pressure Mean [Left Arm] Blood Pressure Position Sitting Pulse Oximetry 96 97 95 Oxygen Delivery Method Room Air Room Air Sepsis Recent Fever Within 48 Hours No Sepsis New/Unexplained Change in Mental Status No Sepsis Action Taken by Nursing No Action Required 06/18/21 08:00 06/18/21 08:30 06/18/21 08:31 Temperature Temperature Source Pulse Rate 64 67 67 Pulse Rate [Apical] Pulse Rate from SpO2 Sensor 64 67 66 Pulse Rhythm Pulse Strength Respiratory Rate 15 19 20 Respiratory Effort / Characteristics Respiratory Depth Respiratory Pattern Blood Pressure 172/67 H 206/73 H Blood Pressure [Left Arm] Blood Pressure Mean 102 117 Blood Pressure Mean [Left Arm] Blood Pressure Position Pulse Oximetry 96 97 97 Oxygen Delivery Method Sepsis Recent Fever Within 48 Hours Sepsis New/Unexplained Change in Mental Status Sepsis Action Taken by Nursing 06/18/21 08:35 06/18/21 09:00 06/18/21 09:30 Temperature Temperature Source Pulse Rate 64 61 70 Pulse Rate [Apical] Pulse Rate from SpO2 Sensor 63 61 70 Pulse Rhythm Pulse Strength Respiratory Rate 22 17 19 Respiratory Effort / Characteristics Respiratory Depth Respiratory Pattern Blood Pressure 182/72 H 177/63 H 193/67 H Blood Pressure [Left Arm] Blood Pressure Mean 108 101 109 Blood Pressure Mean [Left Arm] Blood Pressure Position Pulse Oximetry 96 97 97 Oxygen Delivery Method Sepsis Recent Fever Within 48 Hours Sepsis New/Unexplained Change in Mental Status Sepsis Action Taken by Nursing 06/18/21 10:00 06/18/21 10:01 06/18/21 11:30 Temperature Temperature Source Pulse Rate 70 65 68 Pulse Rate [Apical] Pulse Rate from SpO2 Sensor 67 Pulse Rhythm Pulse Strength Respiratory Rate 18 18 23 Respiratory Effort / Characteristics Respiratory Depth Respiratory Pattern Blood Pressure 189/74 H 158/68 H Blood Pressure [Left Arm] Blood Pressure Mean 112 98 Blood Pressure Mean [Left Arm] Blood Pressure Position Pulse Oximetry 97 Oxygen Delivery Method Sepsis Recent Fever Within 48 Hours Sepsis New/Unexplained Change in Mental Status Sepsis Action Taken by Nursing 06/18/21 12:01 06/18/21 12:30 06/18/21 13:30 Temperature Temperature Source Pulse Rate 66 62 67 Pulse Rate [Apical] Pulse Rate from SpO2 Sensor Pulse Rhythm Pulse Strength Respiratory Rate 20 17 20 Respiratory Effort / Characteristics Respiratory Depth Respiratory Pattern Blood Pressure 143/93 H 193/60 H 108/89 Blood Pressure [Left Arm] Blood Pressure Mean 109 104 95 Blood Pressure Mean [Left Arm] Blood Pressure Position Pulse Oximetry Oxygen Delivery Method Sepsis Recent Fever Within 48 Hours Sepsis New/Unexplained Change in Mental Status Sepsis Action Taken by Nursing 06/18/21 13:35 06/18/21 14:00 Temperature Temperature Source Pulse Rate 72 Pulse Rate [Apical] 74 71 Pulse Rate from SpO2 Sensor 72 Pulse Rhythm Pulse Strength Respiratory Rate 16 21 Respiratory Effort / Characteristics Respiratory Depth Respiratory Pattern Blood Pressure 179/53 H Blood Pressure [Left Arm] 184/55 H 179/53 H Blood Pressure Mean 95 Blood Pressure Mean [Left Arm] 98 95 Blood Pressure Position Pulse Oximetry 97 98 Oxygen Delivery Method Room Air Sepsis Recent Fever Within 48 Hours Sepsis New/Unexplained Change in Mental Status Sepsis Action Taken by Nursing CONSTITUTIONAL: Healthy and well nourished. Was sleeping upon my initial examination, and was easily arousable. Patient is unaware of her situation, place and time. HEENT: Normocephalic, atraumatic. Pupils equal, round and reactive. No subconjunctival hemorrhage, epistaxis, hemotympanum, raccoon's eyes or montes sign. NECK: No obvious tenderness with palpation. Range of motion was deferred. LYMPHATICS: No cervical chain adenopathy. RESPIRATORY: Clear to auscultation bilaterally with no wheezing, crackles, rhonchi or stridor. CARDIOVASCULAR: Regular rate and rhythm with no murmurs, rubs or gallops. GASTROINTESTINAL: Bowel sounds present in all quadrants. Abdomen is soft to palpation without obvious discomfort to the patient. MUSCULOSKELETAL: Examination shows some bruising over the right anterior chest wall and axillary region. Does not appear to have any discomfort with passive range of motion of the right shoulder, elbow or wrist. No obvious discomfort with logroll bilaterally. INTEGUMENTARY: No rash or other significant dermatologic conditions noted. HEMATOLOGIC: No ecchymosis or petechiae. PSYCHIATRIC: Able to assess given patient's history of dementia. NEUROLOGIC: No focal neurologic deficits noted. Course Course Patient history and physical exam were performed. Nurses notes were reviewed. Vital signs were reviewed and were normal. No known mechanism of injury and etiology for the patient's fall, extensive work-up was initiated. IV access was established and labs were drawn. The patient was hydrated with normal saline. An ECG was performed, showing a sinus rhythm with first-degree AV block and PVC. This is unchanged from the previous ECG of 05/09/2021. The patient was placed on printer assistant while in the emergency department. Noncontrast CT of the head and cervical spine did not show any acute findings. CT with IV contrast of the chest, abdomen/pelvis and thoracolumbar spine confirms fractures of the right anterior second through fourth ribs. At the time that work-up was completed, I was advised by our shoe parts caser that the [facility] Office of Aging was contacted, however indicated that they would need to talk with the Office of Aging in [facility], who is also contacted regarding this situation. At the time of patient reevaluation, the patient's daughter was then present. The daughter reports that the patient has had issues with frequent falls due to arthritis of her knees, and frequent urinary tract infections. She reports that the patient has a scheduled atif ointment this afternoon with [facility], having recently being placed on an antibiotic that she continues to take. I did advise the daughter that the urinalysis today does appear normal other than proteinuria and hematuria that the patient reports is baseline. The daughter then expressed concern that she may not be able to take care of her mother in her home because her is currently disabled and cannot provide assistance, and is concerned that with her weakness, she may fall again. At this point, our shoe parts caser performed an interview with the daughter, who is requested that she be sent to the [facility] facility in [place]. Given that it is later in the day, case management has recommended that the patient be given to [facility] for PT/OT evaluation, and hopefully arrange transfer to [facility]. The case was further discussed with the [facility] hospitalist service (Dr. Toledo). Please see their dictation for further treatment and final disposition. It is noted that the shoe parts caser also received a return phone call from the [facility], who reports that the patient cannot safely return to her home at this time. Administered Medications Discontinued Medications Sodium Chloride (Nss) 500 mls @ 999 mls/hr IV .Q31M ONE Stop: 06/18/21 08:04 Last Infusion: 06/18/21 09:03 Dose: 0 mls/hr Documented by: [id number] Admin: 06/18/21 08:27 Dose: 999 mls/hr Documented by: [id number] Ioversol (Optiray 320 100ml) 95 ml IV ONCE ONE Stop: 06/18/21 08:31 Last Admin: 06/18/21 08:16 Dose: 95 ml Documented by: [id number] Medical Decision Making Medical Records Attestation: I reviewed the patient's medical records. Home Medications Current Medication List: was personally reviewed by me Laboratory Data Attestation: I reviewed the patient's lab results. Result diagrams: 06/18/21 07:48 06/18/21 07:48 Lab Results 06/18/21 06/18/21 06/18/21 Range/Units 07:48 07:48 07:48 WBC 7.22 (4.8-10.8) K/uL RBC 4.08 L (4.2-5.4) M/uL Hgb 11.3 L (12.0-16.0) g/dL Hct 35.2 L (37-47) % MCV 86.3 (80-100) fL MCH 27.7 (25-34) pg MCHC 32.1 (32-36) g/dL RDW Std Deviation 45.0 (36.4-46.3) fL RDW Coeff of Michaela 14.1 (11.5-14.5) % Plt Count 234 (130-400) K/uL MPV 10.3 (7.4-10.4) fL Immature Gran % (Auto) 0.4 % Neut % (Auto) 71.3 % Lymph % (Auto) 18.3 % [place] % (Auto) 7.2 % Eos % (Auto) 2.2 % Baso % (Auto) 0.6 % Neut # (Auto) 5.15 (1.4-6.5) K/uL Lymph # (Auto) 1.32 (1.2-3.4) K/uL [place] # (Auto) 0.52 (0.11-0.59) K/uL Eos # (Auto) 0.16 (0-0.5) K/uL Baso # (Auto) 0.04 (0-0.2) K/uL Immature Gran # (Auto) 0.03 H (0.00-0.02) K/uL PT 11.1 (9.0-12.0) Seconds INR 1.0 (0.9-1.1) Sodium 141 (136-145) mmol/L Potassium 4.0 (3.5-5.1) mmol/L Chloride 108 H (98-107) mmol/L Carbon Dioxide 28 (21-32) mmol/L Anion Gap 5 (3-11) BUN 31 H (6-23) mg/dl Creatinine 1.39 H (0.6-1.2) mg/dl Est Cr Clr Drug Dosing 30.0 ml/min Est GFR ( Amer) 39.7 ml/min Est GFR (Non-Af Amer) 34.2 ml/min BUN/Creatinine Ratio 22.3 H (10-20) Glucose 134 H (70-99(Fasting)) mg/dl Calcium 9.3 (8.5-10.1) mg/dl Phosphorus 3.2 (2.5-4.9) mg/dl Magnesium 2.1 (1.7-2.4) mg/dl Total Bilirubin 0.6 (0.2-1.0) mg/dl AST 14 (13-39) U/L ALT 10 (7-52) U/L Alkaline Phosphatase 63 (34-104) U/L Total Creatine Kinase 89 (26-192) U/L Troponin I High Sens 9.3 (0-14) pg/ml Total Protein 6.5 (6.0-8.3) gm/dl Albumin 3.9 (3.4-5.0) gm/dl Globulin 2.6 (2.5-4.0) gm/dl Albumin/Globulin Ratio 1.5 (0.9-2) Urine Color Urine Appearance (Clear) Urine pH (4.5-7.5) Ur Specific [place] (1.000-1.030) Urine Protein (Negative) Urine Glucose (UA) (Negative) Urine Ketones (Negative) Urine Blood (Negative) Urine Nitrite (Negative) Urine Bilirubin (Negative) Urine Urobilinogen (Negative) Ur Leukocyte Esterase (Negative) Urine WBC (Auto) (0-5) /hpf Urine RBC (Auto) (0-4) /hpf U Hyaline Cast (Auto) (0-5) /lpf U Epithel Cells (Auto) (0-5) /lpf Urine Bacteria (Auto) (Negative) SARS-CoV-2, RNA, NAAT (NEGATIVE) 06/18/21 06/18/21 06/18/21 Range/Units 10:00 13:18 14:49 WBC (4.8-10.8) K/uL RBC (4.2-5.4) M/uL Hgb (12.0-16.0) g/dL Hct (37-47) % MCV (80-100) fL MCH (25-34) pg MCHC (32-36) g/dL RDW Std Deviation (36.4-46.3) fL RDW Coeff of Michaela (11.5-14.5) % Plt Count (130-400) K/uL MPV (7.4-10.4) fL Immature Gran % (Auto) % Neut % (Auto) % Lymph % (Auto) % [place] % (Auto) % Eos % (Auto) % Baso % (Auto) % Neut # (Auto) (1.4-6.5) K/uL Lymph # (Auto) (1.2-3.4) K/uL [place] # (Auto) (0.11-0.59) K/uL Eos # (Auto) (0-0.5) K/uL Baso # (Auto) (0-0.2) K/uL Immature Gran # (Auto) (0.00-0.02) K/uL PT (9.0-12.0) Seconds INR (0.9-1.1) Sodium (136-145) mmol/L Potassium (3.5-5.1) mmol/L Chloride (98-107) mmol/L Carbon Dioxide (21-32) mmol/L Anion Gap (3-11) BUN (6-23) mg/dl Creatinine (0.6-1.2) mg/dl Est Cr Clr Drug Dosing ml/min Est GFR ( Amer) ml/min Est GFR (Non-Af Amer) ml/min BUN/Creatinine Ratio (10-20) Glucose (70-99(Fasting)) mg/dl Calcium (8.5-10.1) mg/dl Phosphorus (2.5-4.9) mg/dl Magnesium (1.7-2.4) mg/dl Total Bilirubin (0.2-1.0) mg/dl AST (13-39) U/L ALT (7-52) U/L Alkaline Phosphatase (34-104) U/L Total Creatine Kinase (26-192) U/L Troponin I High Sens 12.4 (0-14) pg/ml Total Protein (6.0-8.3) gm/dl Albumin (3.4-5.0) gm/dl Globulin (2.5-4.0) gm/dl Albumin/Globulin Ratio (0.9-2) Urine Color Yellow Urine Appearance Clear (Clear) Urine pH 6.5 (4.5-7.5) Ur Specific [place] 1.020 (1.000-1.030) Urine Protein 2+ H (Negative) Urine Glucose (UA) Negative (Negative) Urine Ketones Negative (Negative) Urine Blood Trace H (Negative) Urine Nitrite Negative (Negative) Urine Bilirubin Negative (Negative) Urine Urobilinogen Negative (Negative) Ur Leukocyte Esterase Negative (Negative) Urine WBC (Auto) 0 (0-5) /hpf Urine RBC (Auto) 0-4 (0-4) /hpf U Hyaline Cast (Auto) 1-5 (0-5) /lpf U Epithel Cells (Auto) 20-30 H (0-5) /lpf Urine Bacteria (Auto) Negative (Negative) SARS-CoV-2, RNA, NAAT NEGATIVE (NEGATIVE) Imaging Data Attestation: I personally reviewed and interpreted this imaging study as follows: My Impression: My interpretation of a noncontrast CT scan of the head and cervical spine did not show evidence for intracranial bleed or cervical spine fracture/subluxations. My interpretation of a CT with IV contrast of the chest, abdomen/pelvis and thoracolumbar spine shows multiple anterior right-sided rib fractures of #2 through 4. No other acute findings were noted on CT imaging. Radiologist reports were also reviewed. Radiologist's Impression: Abdomen/Pelvis CT 06/18/21 07:35 CT OF THE ABDOMEN AND PELVIS WITH CONTRAST CLINICAL HISTORY: Trauma COMPARISON STUDY: CTA of the abdomen and pelvis May 16, 2021. TECHNIQUE: Following IV administration of 95 mL of Optiray, axial images of the abdomen and pelvis were obtained from the lung bases to the proximal femurs. Images were reviewed in the axial, sagittal, and coronal planes. IV contrast was administered without complication. Automated exposure control was utilized for the study. A dose lowering technique was utilized adhering to the principles of ALARA. FINDINGS: Please note that the chest CT will be reported separately. Several acute anterior right-sided rib fractures are better depicted on that exam. There are several anterior left side rib fractures which are likely subacute. No evidence for traumatic injury to the liver, spleen, adrenal glands, kidneys or pancreas. No hemoperitoneum or pneumoperitoneum is present. Suspected cyst within the lower pole of the right kidney is noted. There is no free fluid. Caliber and wall thickness of small and large bowel are normal. No lymphadenopathy or ascites is present. No acute lumbar spine or pelvic fracture is identified. IMPRESSION: 1. No acute traumatic findings within the abdomen or pelvis. 2. Multiple acute anterior right-sided rib fractures. Several subacute anterior left-sided rib fractures. These findings are better depicted on the chest CT which will be reported separately. ACT 112: Negative or not required by law. Several Electronically signed by: Byron Gomes M.D. 06/18/2021 9:[address] 06/18/21 07:[address] DOSE: HISTORY: Trauma TECHNIQUE: Multiaxial CT images of the cervical spine were performed and reforma tted in the sagittal and coronal plane without the use of contrast. A dose lowering technique was utilized adhering to the principles of ALARA. COMPARISON: None. FINDINGS: No fractures. No subluxation. Prevertebral soft tissues and the C1-C2 interval are intact. No pneumothorax. Trace left mastoid effusion. Moderate disc space narrowing from C4 through C7. IMPRESSION: No fractures within the cervical spine. ACT 112: Negative or not required by law. Electronically signed by: Iain Brewer M.D. 06/18/2021 8:[address] 06/18/21 07:[address] WITH CONTRAST CT DOSE: HISTORY: Diffuse chest pain. Trauma TECHNIQUE: Multiaxial CT images of the chest were performed following the intravenous administration of contrast. A dose lowering technique was utilized adhering to the principles of ALARA. COMPARISON: None. FINDINGS: There is an old, healed manubrial fracture. There is a healing left anterior ninth rib fracture. Multiple acute on chronic right anterior second through fourth rib fractures. No pneumothorax. No pleural effusions. The central airways are patent. Mild respiratory motion artifact. A 4 mm subpleural nodule within the left lower lobe on image 232. This may represent a small focus of atelectasis. Groundglass densities within the lung bases posteriorly are nonspecific but favor mild dependent change. There is mild interstitial thickening which is likely chronic. No mediastinal hematoma or lymphadenopathy. The heart is mildly enlarged. No pleural or pericardial effusions. Please refer to the same day abdomen and pelvis CT for further evaluation of the abdominal structures. Normal esophagus. No evidence for an aortic dissection. The main pulmonary arteries are patent. IMPRESSION: 1. Acute right anterior second through fourth rib fractures. No pneumothorax. 2. Groundglass densities at the lung bases posteriorly are nonspecific but favor mild dependent change. 3. Additional findings as described above. ACT 112: Negative or not required by law. Electronically signed by: Iain Brewer M.D. 06/18/2021 9:[address] 06/18/21 07:35 CT facial bones wo con CLINICAL HISTORY: 85 years-old Female presenting with Trauma. Acute facial trauma status post fall COMPARISON STUDY: CT head and cervical spine studies of same day TECHNIQUE: High-resolution CT scan of the facial bones is performed. Images are reviewed in the axial, sagittal, and coronal planes. IV contrast was not administered for this examination. A dose lowering technique was utilized adhering to the principles of ALARA. FINDINGS: Motion degraded exam. Age-related involutional changes with chronic microvascular ischemic disease. Embolization coils within the right sylvian fissure. Prior bilateral lens repair. Unremarkable soft tissues. Streak artifact from dental amalgam hardware. Moderate sized left mastoid effusion. The right mastoid air cells are clear. There is mild mucoperiosteal thickening of the paranasal sinuses. Prior bilateral maxillary antrostomy. Multilevel degenerative changes of the cervical spine. Numerous dental caries with prior tooth extractions. No acute facial bone fracture is identified. Surgical clips are noted within the superior right orbit. IMPRESSION: 1. No acute facial bone fracture identified. 2. Left mastoid effusion. ACT 112: Negative or not required by law. The above report was generated using voice recognition software. It may contain grammatical, syntax or spelling errors. Electronically signed by: Luis Enrique Dale M.D. 06/18/2021 8:[address] 06/18/21 07:35 CT OF THE HEAD WITHOUT CONTRAST CLINICAL HISTORY: Trauma COMPARISON STUDY: Head CT April 12, 2021. TECHNIQUE: Helical axial images of the head were obtained without IV contrast. Automated exposure control was utilized for the study. A dose lowering technique was utilized adhering to the principles of ALARA. FINDINGS: No acute intracranial hemorrhage, midline shift or mass effect is present. Mild ventricular dilatation is unchanged related to central atrophy. Basilar cisterns are patent. There are no extra-axial collections. Old infarct within the left centrum semiovale ovale is unchanged. White matter hypodensity suggests small vessel disease. No findings to suggest acute dural sinus thrombosis or acute territorial infarct. There is no acute femoral fracture. Postoperative findings within the sinuses are noted with mild sinus mucosal thickening. Trace fluid within the left mastoid air cells. Embolization coils along the right clinoid process are again noted. A radiodensity within the right orbit is unchanged. IMPRESSION: 1. No acute intracranial findings. No change in appearance of the brain. 2. No acute calvarial fracture. ACT 112: Negative or not required by law. Electronically signed by: Byron Gomes M.D. 06/18/2021 8:[address] 06/18/21 07:35 CT lumbar spine w con HISTORY: Fall. Low back pain. Trauma TECHNIQUE: Multiaxial CT images of the lumbar spine were performed following the use of intravenous contrast and reformatted in the sagittal and coronal plane. COMPARISON STUDY: None. FINDINGS: Mild dextroscoliosis. This could be positional. No fractures within th e lumbar spine. There is 3 mm of anterolisthesis of L5 on S1. This is likely chronic. Moderate disc space narrowing throughout the lumbar spine with moderate facet degenerative changes. Mild to moderate central canal narrowing within the mid thoracic spine due to the degenerative change. Paravertebral soft tissues are unremarkable. IMPRESSION: No fractures within the lumbar spine. ACT 112: Negative or not required by law. Electronically signed by: Iain Brewer M.D. 06/18/2021 8:[address] 06/18/21 07:35 CT thoracic spine w con HISTORY: 85 years-old Female Trauma acute back pain status post trauma COMPARISON: CT lumbar spine of same day, CT abdomen and pelvis 05/16/2021 TECHNIQUE: Multiple axial CT images of the thoracic spine were obtained following the intravenous administration of 95 mL Optiray 320. A dose lowering technique was used consistent with the principals of ALARA. FINDINGS: Mild to moderate multilevel disc space narrowing with associated spondylitic spurring and facet arthrosis. There is no acute fracture or subluxation identified. No endplate erosions. Degenerative changes of the imaged lower cervical spine. The imaged ribs appear intact. Evaluation of the central canal and neural foramina is better assessed by MRI. There is no high-grade central canal or foraminal narrowing identified. Tears posterior annular disc bulging noted within the lower thoracic an upper lumbar spine, largest at T12-L1 and L1- L2. No paravertebral edema. Cardiomegaly with coronary artery calcifications. Nonspecific distal esophageal wall thickening. Mild right greater than left bibasilar opacities, likely atelectatic. IMPRESSION: No acute fracture or subluxation of the thoracic spine. ACT 112: Negative or not required by law. The above report was generated using voice recognition software. It may contain grammatical, syntax or spelling errors. Electronically signed by: Luis Enrique Dale M.D. 06/18/2021 8:54 AM ECG Data Attestation: I personally reviewed and interpreted this ECG as follows: Indication: + other (Unwitnessed fall) Rate (beats per minute): 60 Rhythm: + sinus rhythm ECG Intervals/blocks: + First degree AV block and + Normal QRS ECG Superior: + Normal ECG ST segments: + Normal ST segments ECG Findings: + PVCs Comparison ECG Date: from (05/09/2021) Change: the following changes noted (Increased WV interval) Blood Pressure Blood Pressure Findings: Normal blood pressure MDM Narrative Cardiac monitoring: An order was placed for continuous cardiac monitoring. The monitor shows a rate of 60 bpm with a normal sinus rhythm with first-degree AV block [employer]er [employer] history was reviewed throughout the evaluation, and no dysrhythmias were noted. Patient presents to the emergency department for evaluation of injuries from a fall in her home earlier this morning. CT imaging does show evidence for multiple right anterior rib fractures. She has no other concerning findings such as intracranial bleed, cervical spine fractures or other traumatic findings within the chest, abdomen or pelvis. No significant lab abnormalities are noted. Although she recently was treated for UTI, her urinalysis at this point looks fine. EKG and troponin did not show evidence for cardiac ischemia or infarct. At this point, I do feel that the patient warrants transfer to a snf facility given her weakness and family inability to care for her. Case was also discussed with Dr. Kim, ED attending physician, who agrees with work-up and plan of care. Impression & Plan Multiple fractures of ribs of right side, History of CVA with residual deficit, Ambulatory dysfunction, Fall at home Discharge Plan Visit Data Chief Complaint: Fall ED Provider: Kiet Kim ED Midlevel Provider: Bran Castaneda Discharge Problem: Multiple fractures of ribs of right side, History of CVA with residual deficit, Ambulatory dysfunction, Fall at home Forms Stand Alone Forms: My [facility] Prescriptions Prescriptions: No Action clopidogrel 75 mg Tablet 75 mg PO QAM Qty: 30 RF: 3 atorvastatin [Lipitor] 40 mg tablet 40 mg PO HS RF: 0 levothyroxine 137 mcg tablet 137 mcg PO DAILY RF: 0 nitroglycerin [Nitrostat] 0.4 mg Tablet, Sublingual 0.4 mg sublingual UD PRN (Reason: chest pain) Qty: 14 RF: 0 acetaminophen [Tylenol] 325 mg Tablet 650 mg PO QID PRN (Reason: Pain) RF: 0 pantoprazole 40 mg tablet,delayed release (DR/EC) 40 mg PO DAILY RF: 0 amlodipine 2.5 mg tablet 2.5 mg PO DAILY RF: 0 lisinopril-hydrochlorothiazide 20-12.5 mg tablet 1 tab PO DAILY RF: 0 cefdinir 300 mg capsule 300 mg PO BID RF: 0 metoprolol succinate 50 mg tablet extended release 24 hr 50 mg PO QAM RF: 0 isosorbide mononitrate 30 mg tablet extended release 24 hr 30 mg PO QAM RF: 0 aspirin 81 mg tablet,delayed release (DR/EC) 81 mg PO QAM RF: 0 escitalopram oxalate 5 mg tablet 5 mg PO DAILY RF: 0 Referrals Referrals: Jaguar Kelly [Primary Care Provider] - Discharge Problem: Multiple fractures of ribs of right side Qualifiers: Encounter type: initial encounter Fracture type: closed Qualified Code(s): S22.41XA - Multiple fractures of ribs, right side, initial encounter for closed fracture Fall at home Qualifiers: Encounter type: initial encounter Qualified Code(s): W19.XXXA - Unspecified fall, initial encounter
[2021-06-18 08:06] LABS: Basophils # (auto) 0.04 K/uL (0-0.2); Basophils % (auto) 0.6 %; Eosinophils # (auto) 0.16 K/uL (0-0.5); Eosinophils % (auto) 2.2 %; Hematocrit (blood only) 35.2 % (37-47); Hemoglobin 11.3 g/dL (12.0-16.0); Immature Granulocytes # (auto) 0.03 K/uL (0.00-0.02); Immature Granulocytes % (auto) 0.4 %; Lymphocytes # (auto) 1.32 K/uL (1.2-3.4); Lymphocytes % (auto) 18.3 %; Mean Corpuscular Hemoglobin 27.7 pg (25-34); Mean Corpuscular Hgb Conc 32.1 g/dL (32-36); Mean Corpuscular Volume 86.3 fL (80-100); Mean Platelet Volume 10.3 fL (7.4-10.4); Monocytes # (auto) 0.52 K/uL (0.11-0.59); Monocytes % (auto) 7.2 %; Neutrophils # (auto) 5.15 K/uL (1.4-6.5); Neutrophils % (auto) 71.3 %; Platelet Count 234 K/uL (130-400); RDW Coefficient of Variation 14.1 % (11.5-14.5); Red Blood Count 4.08 M/uL (4.2-5.4); White Blood Count 7.22 K/uL (4.8-10.8)
[2021-06-18 08:30] LABS: Troponin I High Sensitivity 9.3 pg/ml (0-14)
[2021-06-18] MEDS ORDERED: OPTIRAY 320 100ml IV ONE (08:30)
[2021-06-18 08:39] LABS: Albumin Globulin Ratio 1.5 (0.9-2); Albumin Level 3.9 gm/dl (3.4-5.0); BUN Creatinine Ratio 22.3 (10-20); Bilirubin,Total 0.6 mg/dl (0.2-1.0); Calcium 9.3 mg/dl (8.5-10.1); Est GFR (African American) 39.7 ml/min; Est GFR (Non-African American) 34.2 ml/min; Globulin 2.6 gm/dl (2.5-4.0); Magnesium 2.1 mg/dl (1.7-2.4); Phosphorus 3.2 mg/dl (2.5-4.9); Total Protein 6.5 gm/dl (6.0-8.3)
--- NOTE | 2021-06-18 08:44 | CT Scan Report ---
CT OF THE HEAD WITHOUT CONTRAST CLINICAL HISTORY: Trauma COMPARISON STUDY: Head CT April 12, 2021. TECHNIQUE: Helical axial images of the head were obtained without IV contrast. Automated exposure con trol was utilized for the study. A dose lowering technique was utilized adhering to the principles o f ALARA. FINDINGS: No acute intracranial hemorrhage, midline shift or mass effect is present. Mild ventricular dilatation is unchanged related to central atrophy. Basilar cisterns are patent. There are no extra- axial collections. Old infarct within the left centrum semiovale ovale is unchanged. White matter hyp odensity suggests small vessel disease. No findings to suggest acute dural sinus thrombosis or acute territorial infarct. There is no acute femoral fracture. Postoperative findings within the sinuses ar e noted with mild sinus mucosal thickening. Trace fluid within the left mastoid air cells. Embolizati on coils along the right clinoid process are again noted. A radiodensity within the right orbit is un changed. IMPRESSION: 1. No acute intracranial findings. No change in appearance of the brain. 2. No acute calvarial fracture. ACT 112: Negative or not required by law. Electronically signed by: Byron Gomes M.D. 06/18/2021 8:43 AM
--- NOTE | 2021-06-18 08:50 | CT Scan Report ---
CT facial bones wo con CLINICAL HISTORY: 85 years-old Female presenting with Trauma. Acute facial trauma status post fall COMPARISON STUDY: CT head and cervical spine studies of same day TECHNIQUE: High-resolution CT scan of the facial bones is performed. Images are reviewed in the axia l, sagittal, and coronal planes. IV contrast was not administered for this examination. A dose lower ing technique was utilized adhering to the principles of ALARA. FINDINGS: Motion degraded exam. Age-related involutional changes with chronic microvascular ischemic disease. E mbolization coils within the right sylvian fissure. Prior bilateral lens repair. Unremarkable soft ti ssues. Streak artifact from dental amalgam hardware. Moderate sized left mastoid effusion. The right mastoid air cells are clear. There is mild mucoperiosteal thickening of the paranasal sinuses. Prior bilateral maxillary antrostomy. Multilevel degenerative changes of the cervical spine. Numerous denta l caries with prior tooth extractions. No acute facial bone fracture is identified. Surgical clips ar e noted within the superior right orbit. IMPRESSION: 1. No acute facial bone fracture identified. 2. Left mastoid effusion. ACT 112: Negative or not required by law. The above report was generated using voice recognition software. It may contain grammatical, syntax o r spelling errors. Electronically signed by: Luis Enrique Dale M.D. 06/18/2021 8:48 AM
[2021-06-18 08:55] LABS: Prothrombin Time 11.1 Seconds (9.0-12.0)
--- NOTE | 2021-06-18 08:56 | CT Scan Report ---
CT thoracic spine w con HISTORY: 85 years-old Female Trauma acute back pain status post trauma COMPARISON: CT lumbar spine of same day, CT abdomen and pelvis 05/16/2021 TECHNIQUE: Multiple axial CT images of the thoracic spine were obtained following the intravenous adm inistration of 95 mL Optiray 320. A dose lowering technique was used consistent with the principals o jaky MENG. FINDINGS: Mild to moderate multilevel disc space narrowing with associated spondylitic spurring and facet arthr osis. There is no acute fracture or subluxation identified. No endplate erosions. Degenerative change s of the imaged lower cervical spine. The imaged ribs appear intact. Evaluation of the central canal and neural foramina is better assessed by MRI. There is no high-grade central canal or foraminal narr owing identified. Tears posterior annular disc bulging noted within the lower thoracic an upper lumba r spine, largest at T12-L1 and L1-L2. No paravertebral edema. Cardiomegaly with coronary artery calcifications. Nonspecific distal esophage al wall thickening. Mild right greater than left bibasilar opacities, likely atelectatic. IMPRESSION: No acute fracture or subluxation of the thoracic spine. ACT 112: Negative or not required by law. The above report was generated using voice recognition software. It may contain grammatical, syntax o r spelling errors. Electronically signed by: Luis Enrique Dale M.D. 06/18/2021 8:54 AM
--- NOTE | 2021-06-18 08:56 | CT Scan Report ---
CERVICAL SPINE CT CT DOSE: HISTORY: Trauma TECHNIQUE: Multiaxial CT images of the cervical spine were performed and reformatted in the sagittal and coronal plane without the use of contrast. A dose lowering technique was utilized adhering to th e principles of ALARA. COMPARISON: None. FINDINGS: No fractures. No subluxation. Prevertebral soft tissues and the C1-C2 interval are intact. No pneumothorax. Trace left mastoid effusion. Moderate disc space narrowing from C4 through C7. IMPRESSION: No fractures within the cervical spine. ACT 112: Negative or not required by law. Electronically signed by: Iain Brewer M.D. 06/18/2021 8:54 AM
--- NOTE | 2021-06-18 08:58 | CT Scan Report ---
CT lumbar spine w con HISTORY: Fall. Low back pain. Trauma TECHNIQUE: Multiaxial CT images of the lumbar spine were performed following the use of intravenous c ontrast and reformatted in the sagittal and coronal plane. COMPARISON STUDY: None. FINDINGS: Mild dextroscoliosis. This could be positional. No fractures within the lumbar spine. There is 3 mm of anterolisthesis of L5 on S1. This is likely chronic. Moderate disc space narrowing throug hout the lumbar spine with moderate facet degenerative changes. Mild to moderate central canal narrow ing within the mid thoracic spine due to the degenerative change. Paravertebral soft tissues are unre markable. IMPRESSION: No fractures within the lumbar spine. ACT 112: Negative or not required by law. Electronically signed by: Iain Brewer M.D. 06/18/2021 8:57 AM
--- NOTE | 2021-06-18 09:13 | CT Scan Report ---
CT OF THE ABDOMEN AND PELVIS WITH CONTRAST CLINICAL HISTORY: Trauma COMPARISON STUDY: CTA of the abdomen and pelvis May 16, 2021. TECHNIQUE: Following IV administration of 95 mL of Optiray, axial images of the abdomen and pelvis we re obtained from the lung bases to the proximal femurs. Images were reviewed in the axial, sagittal, and coronal planes. IV contrast was administered without complication. Automated exposure control wa s utilized for the study. A dose lowering technique was utilized adhering to the principles of ALARA . FINDINGS: Please note that the chest CT will be reported separately. Several acute anterior right-glenroy ed rib fractures are better depicted on that exam. There are several anterior left side rib fractures which are likely subacute. No evidence for traumatic injury to the liver, spleen, adrenal glands, ki dneys or pancreas. No hemoperitoneum or pneumoperitoneum is present. Suspected cyst within the lower pole of the right kidney is noted. There is no free fluid. Caliber and wall thickness of small and la rge bowel are normal. No lymphadenopathy or ascites is present. No acute lumbar spine or pelvic fract ure is identified. IMPRESSION: 1. No acute traumatic findings within the abdomen or pelvis. 2. Multiple acute anterior right-sided rib fractures. Several subacute anterior left-sided rib fractu res. These findings are better depicted on the chest CT which will be reported separately. ACT 112: Negative or not required by law. Several Electronically signed by: Byron Gomes M.D. 06/18/2021 9:10 AM
--- NOTE | 2021-06-18 09:16 | CT Scan Report ---
CHEST CT WITH CONTRAST CT DOSE: HISTORY: Diffuse chest pain. Trauma TECHNIQUE: Multiaxial CT images of the chest were performed following the intravenous administration of contrast. A dose lowering technique was utilized adhering to the principles of ALARA. COMPARISON: None. FINDINGS: There is an old, healed manubrial fracture. There is a healing left anterior ninth rib frac ture. Multiple acute on chronic right anterior second through fourth rib fractures. No pneumothorax. No pleural effusions. The central airways are patent. Mild respiratory motion artifact. A 4 mm subple ural nodule within the left lower lobe on image 232. This may represent a small focus of atelectasis. Groundglass densities within the lung bases posteriorly are nonspecific but favor mild dependent shital nge. There is mild interstitial thickening which is likely chronic. No mediastinal hematoma or lympha denopathy. The heart is mildly enlarged. No pleural or pericardial effusions. Please refer to the [facility] e day abdomen and pelvis CT for further evaluation of the abdominal structures. Normal esophagus. No evidence for an aortic dissection. The main pulmonary arteries are patent. IMPRESSION: 1. Acute right anterior second through fourth rib fractures. No pneumothorax. 2. Groundglass densities at the lung bases posteriorly are nonspecific but favor mild dependent vazquez e. 3. Additional findings as described above. ACT 112: Negative or not required by law. Electronically signed by: Iain Brewer M.D. 06/18/2021 9:14 AM
[2021-06-18 10:22] LABS: Appearance Urine Clear (Clear); Bacteria Urine Automated Negative (Negative); Bilirubin Urine Negative (Negative); Blood Urine Trace (Negative); Color Urine Yellow; Epithelial Cell Urine Auto 20-30 /lpf (0-5); Glucose Urine UA Negative (Negative); Ketones Urine Negative (Negative); Leukocyte Esterase Urine Negative (Negative); Nitrite Urine Negative (Negative); Protein Urine 2+ (Negative); RBC Urine Automated 0-4 /hpf (0-4); Urobilinogen Urine Negative (Negative); WBC Urine Automated 0 /hpf (0-5); pH Urine 6.5 (4.5-7.5)
--- NOTE | 2021-06-18 15:39 | Electrocardiogram Report ---
Test Reason : Blood Pressure : / mmHG Vent. Rate : 060 BPM Atrial Rate : 060 BPM P-R Int : 230 ms QRS Dur : 100 ms QT Int : 416 ms P-R-T Axes : 068 -18 030 degrees QTc Int : 416 ms Poor data quality, interpretation may be adversely affected Sinus rhythm with 1st degree A-V block with occasional Premature ventricular complexes Otherwise normal ECG When compared with ECG of 09-MAY-2021 19:45, Premature ventricular complexes are now Present AK interval has increased Confirmed by Lloyd Caputo ([id number]) on 06/18/2021 3:39:07 PM Referred By: REFERRED SELF Confirmed By:Liu Caputo
--- NOTE | 2021-06-18 15:43 | Electrocardiogram Report ---
Test Reason : Blood Pressure : / mmHG Vent. Rate : 063 BPM Atrial Rate : 063 BPM P-R Int : 228 ms QRS Dur : 100 ms QT Int : 428 ms P-R-T Axes : 061 -20 022 degrees QTc Int : 437 ms Poor data quality, interpretation may be adversely affected Sinus rhythm with sinus arrhythmia with 1st degree A-V block Otherwise normal ECG When compared with ECG of 18-JUN-2021 07:43, (unconfirmed) Premature ventricular complexes are no longer Present Confirmed by Lloyd Caputo ([id number]) on 06/18/2021 3:43:19 PM Referred By: REFERRED SELF Confirmed By:Liu Caputo
--- NOTE | 2021-06-18 16:38 | History & Physical Report ---
Date of Service June 18, 2021 Assessment & Plan (1) Ambulatory dysfunction: Plan: Ddx includes mechanical fall, vasovagal syncope, arrhythmia, seizure. CVA unlikely given non-focal findings. MS ruled out with negative troponins. - Telemetry - Monitor - PT/OT (2) Multiple fractures of ribs of right side: Plan: Due to fall. Right 2nd - 4th ribs. No flail chest or other major concern. - Pain control (3) Acute kidney injury: Plan: Baseline Cr. is ~1.0, with CrCl 40 - 45 mL/min. CKD stage II. - On presentation, Cr up to 1.4. Likely dehydration given BUN:Cr ratio. - Start gentle IV fluids - Hold home lisinopril/HCTZ - Bladder appears large on CT a/p per my read - Will get bladder scans and follow. (4) UTI (urinary tract infection): Plan: Per daughter, is now getting them "every other week." However, symptoms are mostly cognition and worsening motor function, so I am concerned that these are not UTIs, but normal waxing and waning of her dementia. - Finished 2 days of cefdinir - Will *not* test for cure - Patient had plan to f/u with urology; could consider consult to see if they feel methenamine hippurate might be appropriate. (5) Memory deficit: Plan: Severe memory issues at baseline. Likely vascular dementia vs. Alzheimer's vs. other. At baseline, per daughter, she cannot recall that her parents are , cannot recall that her daughter is not her mother, does not know date s/times/year. - Continue home escitalopram - Conservative measures for delirium prevention (6) Hypertension: Plan: BP was as high as 180/55 in the ER, but patient without symptoms. - Continue home amlodipine, Imdur, & metoprolol - Hold HCTZ/lisinopril for VLAD (7) CAD (coronary artery disease): Plan: Prior notes indicate stents, but from [facility] on 03/12/2020, she only has mild, non- obstructive CAD. Her elevated troponins are thought to have been from vasospasm vs. transient small vessel obstruction. - Continue DAPT for now (possibly more for CVA) - Continue beta-leonor, statin, Imdur - Continue amlodipine for possible vasospasm-related chest pain (8) History of CVA with residual deficit: Plan: In 01/03/2018. Was seen by neurology at that time. No MRI due to metal coil behind her eye. - Per that note, she could have been switched to just clopidogrel after 2-3 months. Unclear why she is still on DAPT. (9) DVT prophylaxis: Plan: Heparin 5000 units SQ BID History of Present Illness Primary Care Provider: Jaguar Kelly 85yo F w/ hx of dementia who presents for fall at home and failure to thrive. The patient is a poor historian, and cannot tell me almost anything about the last few days' events. Per the daughter, she was recently treated for a UTI. The daughter reports she has a UTI "every other week" and feels this is the major cause of her cognitive and mobility issues as she feels her UTIs significantly impair both of these. As the patient is still on treatment for a UTI, the patient's daughter does not feel she is presently at baseline. The patient usually sleeps well overnight, but last night, she was up around 3:30am. The patient's daughter woke up, and noted that the patient's bedroom door was open. Because she knew she closed the door when she put her mother to bed, the daughter went in and found the patient in bed, but awake. She reminded her to stay in bed, and the daughter went to bed herself. At 5:30am, she went to check on her mother again, and found her approx. 3 feet away from the bed. She feels strongly that her mother could not have rolled out of bed into that position, and therefore, believes her mother got up from bed, attempted to walk to the bathroom, and then fell down. The patient has no recollection of any overnight events. She reports some right- sided chest wall pain, but denies any WAGGONER, vision changes, shortness of breath, chest pain, stomach pain, dysuria, bowel/bladder issues, or other concerns. Allergies Allergy/AdvReac Type Severity Reaction Status Date / Time cefpodoxime [From Vantin] Allergy Unknown Unknown Verified 06/18/21 14:46 Sulfa (Sulfonamide Allergy Unknown Unknown Verified 06/18/21 14:46 Antibiotics) Home Medications Medication Instructions Recorded Confirmed Type clopidogrel 75 mg tablet 75 mg PO QAM #30 tab 01/06/18 06/18/21 Rx atorvastatin 40 mg tablet (Lipitor) 40 mg PO HS 12/22/18 06/18/21 History levothyroxine 137 mcg tablet 137 mcg PO DAILY 03/11/20 06/18/21 History nitroglycerin 0.4 mg sublingual 0.4 mg SUBLINGUAL UD PRN #14 tab 03/13/20 06/18/21 Rx tablet (Nitrostat) aspirin 81 mg tablet,delayed 81 mg PO QAM 05/23/20 06/18/21 History release isosorbide mononitrate 30 mg 30 mg PO QAM 05/23/20 06/18/21 History tablet,extended release 24 hr metoprolol succinate 50 mg 50 mg PO QAM 05/23/20 06/18/21 History tablet,extended release 24 hr escitalopram oxalate 5 mg tablet 5 mg PO DAILY 12/08/20 06/18/21 History acetaminophen 325 mg tablet 650 mg PO QID PRN 04/12/21 06/18/21 History (Tylenol) pantoprazole 40 mg tablet,delayed 40 mg PO DAILY 05/16/21 06/18/21 History release amlodipine 2.5 mg tablet 2.5 mg PO DAILY 06/18/21 06/18/21 History cefdinir 300 mg capsule 300 mg PO BID 06/18/21 06/18/21 History lisinopril 20 1 tab PO DAILY 06/18/21 06/18/21 History mg-hydrochlorothiazide 12.5 mg tablet Past Med/Surg History Medical History Acute confusion Chest pain Diabetes History of CVA with residual deficit HTN (hypertension) Hypertension Osteoarthritis of right knee Surgical History History of cataract surgery Family History Mother , age 69 with heart disease No problems noted. Father No problems noted. Other Family history non-contributory Social History Smoking Status: Unknown if ever smoked Second Hand Exposure: Yes; Hx Alcohol Use: No Hx Substance Use: No Preferred Language: [place] Communication Ability: Impaired Delivery Table Operator Required: No Beliefs That Will Affect Care: None marital status: Current Living Situation: Family Current Living Situation Comment: Patient lives with her son, but her daughter and son in law also help How many Children do You have: 2 Feels Safe at Home: Yes Assistive Devices: Denture - Upper Review of Systems Review of Systems: All systems reviewed & are unremarkable except as noted in HPI & below Physical Exam Constitutional: WD/WN, vitals as above Eyes: EOM intact bilaterally; no conjunctival abnormality ENMT: external ear and nose normal, oropharynx normal Neck: trachea midline, no thyromegaly normal visual inspection Respiratory: normal respiratory effort, lungs clear to auscultation no respiratory distress Cardiovascular: RRR, no murmur, no edema Chest (Breasts): Chest: + abnormal inspection of chest (Bruising on right side of chest) Gastrointestinal (Abdomen): Inspection/Auscultation: abdomen normal to inspection; abdomen not distended Musculoskeletal: no cyanosis or clubbing, extremities motor strength 5/5 Skin: no rashes, warm and dry Neurologic: moves all extremities and awake Psychiatric: Orientation: alert, oriented to person and cooperative Results & Data Results & Data ([facility]) Vital Signs (Past 12 Hours) Vital Signs Temp Pulse Pulse Resp BP BP Pulse Ox 06/18/21 14:00 72 71 21 179/53 H 179/53 H 98 06/18/21 13:35 74 16 184/55 H 97 06/18/21 13:30 67 20 108/89 06/18/21 12:30 62 17 193/60 H 06/18/21 12:01 66 20 143/93 H 06/18/21 11:30 68 23 158/68 H 06/18/21 10:01 65 18 189/74 H 97 06/18/21 10:00 70 18 06/18/21 09:30 70 19 193/67 H 97 06/18/21 09:00 61 17 177/63 H 97 06/18/21 08:35 64 22 182/72 H 96 06/18/21 08:31 67 20 206/73 H 97 06/18/21 08:30 67 19 97 06/18/21 08:00 64 15 172/67 H 96 06/18/21 07:53 60 95 06/18/21 07:40 67 17 97 06/18/21 07:28 36.5 C 76 20 156/100 H 96 Code Status & VTE Plan VTE Prophylaxis Plan VTE Prophylaxis will be ordered: Yes PG Care Time/CCT Total # of Minutes Spent Total Time Spent with Patient: Total time spent is greater than 50% in coordination of care (as documented) at patient's floor/unit and/or counseling patient: Coding Level of Care Code 64261 Initial Inpt Care Lvl 3 Diagnoses Ambulatory dysfunction R26.2 Multiple fractures of ribs of right side S22.41XA Encounter type: initial encounter Fracture type: closed Acute kidney injury N17.9 Hypertension I10 Hypertension type: unspecified CAD (coronary artery disease) I25.10 History of CVA with residual deficit I69.30 UTI (urinary tract infection) N39.0 Hematuria presence: without hematuria Urinary tract infection type: site unspecified DVT prophylaxis Z29.9 Memory deficit R41.3 (1) Multiple fractures of ribs of right side Encounter type: initial encounter Fracture type: closed Qualified Code(s): S22.41XA - Multiple fractures of ribs, right side, initial encounter for closed fracture (2) Hypertension Hypertension type: unspecified Qualified Code(s): I10 - Essential (primary) hypertension (3) UTI (urinary tract infection) Hematuria presence: without hematuria Urinary tract infection type: site unspecified Qualified Code(s): N39.0 - Urinary tract infection, site not specified
[2021-06-18] MEDS ORDERED: ONDANSETRON INJ 2 MG/ML 2 ML VIAL IV PRN (17:36)
[2021-06-18] MEDS ORDERED: ACETAMINOPHEN 325 MG TAB PO PRN (17:36)
[2021-06-18] MEDS: LIDOCAINE 5% 1 PATCH TD SCH (20:50)
[2021-06-18] MEDS: ATORVASTATIN 40 MG TAB PO SCH (20:51)
[2021-06-18] MEDS: HEPARIN SOD 5,000 UNIT/0.5 ML VIAL SQ SCH (20:51)
[2021-06-19] MEDS: LEVOTHYROXINE SODIUM 137 MCG TABLET PO SCH (05:52)
--- NOTE | 2021-06-19 06:19 | Communication Note ---
Date of Service: June 19, 2021 Bladder scan 268 at 6:14 AM. Day provider has order for nursing to notify if >150.
[2021-06-19 07:33] LABS: Hematocrit (blood only) 37.8 % (37-47); Hemoglobin 12.5 g/dL (12.0-16.0); Mean Corpuscular Hgb Conc 33.1 g/dL (32-36); Mean Corpuscular Volume 84.6 fL (80-100); Mean Platelet Volume 10.7 fL (7.4-10.4); Platelet Count 263 K/uL (130-400); RDW Coefficient of Variation 13.8 % (11.5-14.5); RDW Standard Deviation 42.9 fL (36.4-46.3); Red Blood Count 4.47 M/uL (4.2-5.4)
--- NOTE | 2021-06-19 07:40 | Hospitalist Progress Note ---
Date of Service June 19, 2021 Assessment & Plan (1) Fall at home: Plan: 85yo female with dementia presented to the ED after a fall. Fall Differential includes mechanical fall, syncope, arrhythmia, seizure CVA unlikely given nonfocal findings [place] unlikely given negative serial troponins Continue telemetry monitoring PT/OT ordered CM assisting with placement Rib fractures Fractures noted of the right 2nd-4th ribs, suspected 2/2 fall No flail chest or additional concerns Pain control with APAP, lidocaine patch VLAD--resolved Creatinine elevated to 1.4 on admission (baseline ~1.0), suspected secondary to dehydration Received 1L NSS bolus in ED Hold home lisinopril/HCTZ Trend daily BMP Dementia Patient with severe memory issues at baseline; oriented only to person 06/18: patient became agitated/combative overnight, attempted to bite staff If agitation recurs, verbal deescalation for mild agitation, haldol IM 5mg prn combativeness, removing medical equipment, or if a danger to self/others Continue home escitalopram UTI vs asymptomatic bacteriuria Patient was being treated for UTI prior to admission, finished 2 days of cefdinir However, per daughter, patient's symptoms were primarily cognitive rather than urinary; unclear if patient had true UTI No intervention indicated at this time Patient has plans to follow up with urology; consider consulting them while inpatient if urinary symptoms arise HTN BP elevated to 180s in ED, though without symptoms Continue home amlodipine, imdur, metoprolol Currently holding home lisinopril/HCTZ as BPs are acceptable, can but restart if blood pressures increase since VLAD is not resolved. CAD Continue DAPT, metoprolol, imdur, statin, amlodipine History of CVA (12/2017) Seen by neurology after CVA in 2018 Unclear why patient is still on DAPT; consider discontinuing aspirin Hypothyroidism Continue levothyroxine FEN: heart healthy diet Code status: full code DVT ppx: heparin sq Held home meds: lisinopril/HCTZ PT/OT: ordered Case management: following Dispo: med/surg telemetry, placement pending PT/OT evaluation Admission and Anticipated Discharge Date Admission Date: June 18, 2021 Supervising Physician Co-Signing Physician Notes Patient seen and examined with PGY-2 Dr. London. Agree with history, exam findings, assessment and plan of care as outlined. In brief, Mae is an 85 year old female with history of dementia, HTN, recurrent urinary tract infections, CAD and prior CVA admitted after a fall. Today, she reports she has no pain; however, when she moves she does have pain on the right side of the chest. Denies urinary symptoms. Spoke with nurse who reports that patient was quite challenging last night--attempted to bite one of the nurses, was confused. VS and nursing notes reviewed. Well appearing. Pleasant. Oriented to self. Exam per Dr. London. Labs and imaging reviewed. 1. fall. likely this was actually due to weakness/deconditioning or confusion and not a syncopal event. PT/OT eval. Daughter can no longer care for Mae safely at home and requested assistance with possible placement. Appreciate case management assistance. 2. rib fractures from fall. pain control. Incentive spirometry/pulm toilet. 3. VLAD. prerenal. Resolved. Cr 1.03 this morning. Lisinopril/HCTZ initially held. Please see below for details. 4. Urinary tract infection. Unfortunately, difficult to know if this is asymptomatic bacteruria vs true urinary tract infection given that she is a challenging historian in terms of her symptoms. Will hold off on further antibiotics right now as it does not seem that this is a true urinary tract infection. Can follow up with urology as an outpatient. 5. HTN. Blood pressures have been at goal. Continue home amlodipine, metoprolol, imdur. Since blood pressures have been in an acceptable range with this regimen right now, will continue to hold HCTZ/lisinopril unless BPs are rising. 6. CAD/hx of CVA. Continue home ASDA, Plavix, statin. 7. Delirium. Likely more hospital related rather than infectious or other metabolic etiology. Re-direction, verbal reassurance. If severely aggitated, PRN haldol is ordered. Other chronic issues are stable. Home medications continued. Dispo: pending likely placement. Subjective Patient seen and evaluated at bedside this morning. RN noted that overnight, patient had an episode of agitation and tried to bite staff members; this reso lved and patient was able to get some sleep. Today, patient feels well, denying any pain at rest, though she does note some rib pain, under her right breast, when changing positions. Denies SOB, abdominal pain, nausea, vomiting, or diarrhea. No complaints or concerns at this time. Physical Exam Physical Exam: Constitutional: well-appearing, no acute distress HEENT: NCAT, no conjunctival injection CV: regular rhythm, no murmur appreciated, extremities well-perfused, no LE edema Resp: CTABL, no wheezes/rales/rhonchi appreciated, no increased work of breathing MSK: right-sided chest wall tenderness Neuro: alert, oriented to person only, no focal deficit Results & Data Results & Data ([facility] [place]) Vital Signs (Past 12 Hours) Vital Signs Temp Pulse Pulse Resp BP Pulse Ox 06/19/21 04:00 36.4 C L 63 20 172/98 H 97 06/19/21 00:40 67 06/18/21 23:22 36.7 C 63 18 169/81 H 96 06/18/21 21:29 65 Resident Activity Tracking Resident Involvement: Resident Care Provided Care Provided: Adult Hospital Medicine (1) Fall at home Encounter type: initial encounter Qualified Code(s): W19.XXXA - Unspecified fall, initial encounter; Y92.009 - Unspecified place in unspecified non- institutional (private) residence as the place of occurrence of the external cause
[2021-06-19 08:05] LABS: BUN Creatinine Ratio 18.4 (10-20); Calcium 9.4 mg/dl (8.5-10.1); Creatinine Clr Calc Pharmacy 39.4 ml/min; Est GFR (Non-African American) 49.2 ml/min; Magnesium 1.9 mg/dl (1.7-2.4); Potassium 3.7 mmol/L (3.5-5.1)
[2021-06-19] MEDS: ESCITALOPRAM OXALATE 10 MG TAB PO SCH (08:36)
[2021-06-19] MEDS: ACETAMINOPHEN 325 MG TAB PO SCH ×2 (08:36→15:58)
[2021-06-19] MEDS: PANTOprazole 40 MG TAB PO SCH (08:39)
[2021-06-19] MEDS: amLODIPine BESYLATE 5 MG TAB PO SCH (08:39)
[2021-06-19] MEDS: ASPIRIN 81 MG ECTAB PO SCH (08:40)
[2021-06-19] MEDS: CLOPIDOGREL BISULFATE 75 MG TAB PO SCH (08:40)
[2021-06-19] MEDS: ISOSORBIDE MONO EXTENDED REL 30 MG TABCR PO SCH (08:40)
[2021-06-19] MEDS: HEPARIN SOD 5,000 UNIT/0.5 ML VIAL SQ SCH ×2 (08:41→21:08)
[2021-06-19] MEDS: METOPROLOL SUCC 50MG EXT REL TAB PO SCH (08:41)
[2021-06-19 14:10] LABS: iSTAT Blood Urea Nitrogen 31 mg/dl (7-18); iSTAT Carbon Dioxide 25 mmol/L (24-31); iSTAT Chloride 105 mmol/L (101-112); iSTAT Creatinine 1.4 mg/dl (0.6-1.3); iSTAT Hematocrit 32 % (37-47); iSTAT Hemoglobin 10.9 g/dl (12.0-16.0); iSTAT Ionized Calcium 1.15 mmol/l (1.12-1.32); iSTAT Potassium 4.1 mmol/L (3.3-5.0); iSTAT Sodium 142 mmol/L (135-144)
[2021-06-19] MEDS ORDERED: HALOPERIDOL LACTATE 5 MG/ML 1 ML VIAL IM PRN (15:33)
[2021-06-19] MEDS: LIDOCAINE 5% 1 PATCH TD SCH (17:25)
[2021-06-19] MEDS: ATORVASTATIN 40 MG TAB PO SCH (21:08)
[2021-06-20] MEDS: ACETAMINOPHEN 325 MG TAB PO SCH ×5 (01:21→23:42)
[2021-06-20] MEDS: LEVOTHYROXINE SODIUM 137 MCG TABLET PO SCH (05:28)
[2021-06-20 07:30] LABS: Basophils # (auto) 0.05 K/uL (0-0.2); Basophils % (auto) 0.8 %; Eosinophils # (auto) 0.27 K/uL (0-0.5); Eosinophils % (auto) 4.5 %; Hematocrit (blood only) 35.2 % (37-47); Hemoglobin 11.5 g/dL (12.0-16.0); Immature Granulocytes # (auto) 0.01 K/uL (0.00-0.02); Immature Granulocytes % (auto) 0.2 %; Lymphocytes # (auto) 1.82 K/uL (1.2-3.4); Lymphocytes % (auto) 30.5 %; Mean Corpuscular Hemoglobin 27.6 pg (25-34); Mean Corpuscular Hgb Conc 32.7 g/dL (32-36); Mean Corpuscular Volume 84.4 fL (80-100); Mean Platelet Volume 10.7 fL (7.4-10.4); Monocytes # (auto) 0.75 K/uL (0.11-0.59); Monocytes % (auto) 12.6 %; Neutrophils # (auto) 3.06 K/uL (1.4-6.5); Neutrophils % (auto) 51.4 %; Platelet Count 244 K/uL (130-400); RDW Coefficient of Variation 14.1 % (11.5-14.5); RDW Standard Deviation 43.9 fL (36.4-46.3); Red Blood Count 4.17 M/uL (4.2-5.4); White Blood Count 5.96 K/uL (4.8-10.8)
[2021-06-20 07:51] LABS: BUN Creatinine Ratio 22.9 (10-20); Calcium 8.9 mg/dl (8.5-10.1); Creatinine Clr Calc Pharmacy 29.2 ml/min; Est GFR (African American) 39.3 ml/min; Est GFR (Non-African American) 33.9 ml/min; Potassium 3.6 mmol/L (3.5-5.1)
--- NOTE | 2021-06-20 08:17 | Hospitalist Progress Note ---
Date of Service June 20, 2021 Assessment & Plan (1) Fall at home: Plan: 85yo female with dementia presented to the ED after a fall. Fall, ambulatory dysfunction: Differential includes mechanical fall, syncope, arrhythmia, seizure CVA unlikely given nonfocal findings [place] unlikely given negative serial troponins PT/OT ordered; SNF placement vs. 24 hour care CM assisting with placement Rib fractures: Fractures noted of the right 2nd-4th ribs, suspected 2/2 fall. No flail chest or additional concerns. Pain control with Tylenol, lidocaine patches scheduled. Oxycodone as needed for breakthrough pain. VLAD: Creatinine elevated to 1.4 on admission (baseline ~1.0), suspected secondary to dehydration. Received 1L NSS bolus in ED; another 500cc given today. Holding home lisinopril/HCTZ. Trend daily BMP. Dementia: Patient with severe memory issues at baseline; oriented only to person. 06/18: patient became agitated/combative overnight, attempted to bite staff. If agitation recurs, verbal deescalation for mild agitation, haldol IM 5mg prn combativeness, removing medical equipment, or if a danger to self/others. Continue home escitalopram. Long discussion today with patient's family member (sister) regarding delirium in the hospital, as compared to this being a sign of UTI. Asymptomatic bacteriuria: Patient was being treated for UTI prior to admission, finished 2 days of cefdinir. However, per daughter, patient's symptoms were primarily cognitive rather than urinary; unlikely true UTI. No intervention indicated at this time. Patient has plans to follow up with Urology. HTN: BP elevated to 180s in ED, though without symptoms. Continue home amlodipine, imdur, metoprolol. Currently holding home lisinopril/HCTZ due to VLAD. CAD: Continue DAPT, metoprolol, imdur, statin, amlodipine. History of CVA (12/2017): Seen by neurology after CVA in 2018. Unclear why patient is still on DAPT; consider discontinuing aspirin. Hypothyroidism: Continue levothyroxine. Code status: full code FEN: heart healthy diet DVT ppx: heparin sq Dispo: med/surg, placement pending PT/OT evaluation Admission and Anticipated Discharge Date Admission Date: June 18, 2021 Supervising Physician Co-Signing Physician Notes Attending attestation Pt seen and examined in concert with Dr. Oakley. In agreement with the documented findings as noted in the resident documentation with any exceptions or additions as noted here. Ongoing sharp scout of the right chest at site of fx with movement but otherwise comfortable. No acute complaints. Still confused with cooboration of deviation from baseline per sister at bedside. On examiantion, S1/S2 nl RRR no MCG. CTAB. Abd NT/ND BS+ve Fall - multifactorial, likely deconditioning - PT/OT - placement requested 2/2 barriers to care at home Rib fractures - pain control, encourage IS use Abnormal UA with concern for UTI - no evidence of change and with improved delirium, likely asx bacturia. Continue to monitor. Else see resident documentation as noted. Subjective Patient without any acute events overnight. She denied pain this morning except with movement. She denies SOB, nausea, vomiting. Review of Systems Review of Systems: All systems reviewed & are unremarkable except as noted in HPI & below Constitutional: no fever, no chills and no malaise Respiratory: no cough and no dyspnea Cardiovascular: no chest pain, no palpitations and no edema Gastrointestinal: no abdominal pain, no constipation and no diarrhea/loose st ools Genitourinary: no dysuria and no hematuria Physical Exam Constitutional: WD/WN, vitals as above Respiratory: normal respiratory effort, lungs clear to auscultation Cardiovascular: RRR, no murmur, no edema Gastrointestinal (Abdomen): normal bowel sounds, soft, nontender, no hepatosplenomegaly Musculoskeletal: chest wall tenderness to palpation Skin: no rashes, warm and dry Psychiatric: alert, oriented to name and place Results & Data Results & Data ([facility]) Vital Signs (Past 12 Hours) Vital Signs Temp Pulse Pulse Resp BP BP Pulse Ox 06/20/21 07:02 36.3 C L 64 18 137/78 94 06/20/21 03:39 36.6 C 58 L 18 141/62 H 95 06/19/21 23:35 36.6 C 62 18 161/75 H 95 06/19/21 22:18 66 Resident Activity Tracking Resident Involvement: Resident Care Provided Care Provided: Adult Hospital Medicine (1) Fall at home Encounter type: initial encounter Qualified Code(s): W19.XXXA - Unspecified fall, initial encounter; Y92.009 - Unspecified place in unspecified non- institutional (private) residence as the place of occurrence of the external cause
[2021-06-20] MEDS: PANTOprazole 40 MG TAB PO SCH (08:59)
[2021-06-20] MEDS: ISOSORBIDE MONO EXTENDED REL 30 MG TABCR PO SCH (08:59)
[2021-06-20] MEDS: HEPARIN SOD 5,000 UNIT/0.5 ML VIAL SQ SCH ×2 (08:59→22:15)
[2021-06-20] MEDS: METOPROLOL SUCC 50MG EXT REL TAB PO SCH (08:59)
[2021-06-20] MEDS: ESCITALOPRAM OXALATE 10 MG TAB PO SCH (09:00)
[2021-06-20] MEDS: amLODIPine BESYLATE 5 MG TAB PO SCH (09:01)
[2021-06-20] MEDS: CLOPIDOGREL BISULFATE 75 MG TAB PO SCH (09:01)
[2021-06-20] MEDS: ASPIRIN 81 MG ECTAB PO SCH (09:01)
[2021-06-20] MEDS ORDERED: SODIUM CHLORIDE 0.9% 1000ML 500 ML IV ONE (13:42)
[2021-06-20] MEDS: LIDOCAINE 5% 1 PATCH TD SCH (18:40)
[2021-06-20] MEDS: ATORVASTATIN 40 MG TAB PO SCH (22:15)
[2021-06-20] MEDS: oxyCODONE HCL IR 5 MG TAB (IMMEDIATE RELEASE) PO PRN (23:42)
[2021-06-21] MEDS: LEVOTHYROXINE SODIUM 137 MCG TABLET PO SCH (06:19)
--- NOTE | 2021-06-21 07:38 | Hospitalist Progress Note ---
Date of Service June 21, 2021 Assessment & Plan (1) Fall at home: Plan: 85yo female with dementia admitted for fall with rib fractures and ambulatory dysfunction with concern for home safety. Fall, ambulatory dysfunction: Differential on admission included mechanical fall, syncope, arrhythmia, seizure. CVA unlikely given nonfocal findings. No evidence of seizure. [place] unlikely given negative serial troponins. Telemetry without evidence of arrhythmia. PT/OT ordered; SNF placement vs. 24 hour care. CM assisting with placement, and Office of Aging involved. Rib fractures: Fractures noted of the right 2nd-4th ribs following the fall. No flail chest or additional concerns. Pain control with Tylenol, lidocaine patches scheduled. Oxycodone as needed for breakthrough pain. VLAD: Creatinine elevated to 1.4 on admission (baseline ~1.0), suspected secondary to dehydration. Received 1L NSS bolus in ED; another 500cc given today. Holding home lisinopril/HCTZ. BMP tomorrow. Dementia: Patient with severe memory issues at baseline; oriented only to person. 06/18: patient became agitated/combative overnight, attempted to bite staff. If agitation recurs, verbal deescalation for mild agitation, Haldol IM 5mg prn combativeness, removing medical equipment, or if a danger to self/others. Continue home escitalopram. Asymptomatic bacteriuria: Patient was being treated for UTI prior to admission, finished 2 days of cefdinir. However, per daughter, patient's symptoms were primarily cognitive rather than urinary; unlikely true UTI. No intervention indicated at this time. Patient has plans to follow up with Urology. HTN: BP elevated to 180s in ED, though without symptoms. Continue home amlodipine, Imdur, metoprolol. Currently holding home lisinopril/HCTZ due to VLAD. CAD: Continue DAPT, metoprolol, Imdur, statin, amlodipine. History of CVA (12/2017): Seen by neurology after CVA in 2018. Unclear why patient is still on DAPT; consider discontinuing aspirin. Hypothyroidism: Continue levothyroxine. Code status: full code FEN: heart healthy diet DVT ppx: heparin sq Dispo: med/surg, placement pending PT/OT evaluation Admission and Anticipated Discharge Date Admission Date: June 18, 2021 Supervising Physician Co-Signing Physician Notes Attending attestation Pt seen and examined in concert with Dr. Oakley. In agreement with the documented findings as noted in the resident documentation with any exceptions or additions as noted here. Sharp pain of right chest well controlled by position and current medication. No other complaints at time. On examination, S1/S2 nl RRR no MCG. CTAB. Abd NT/ND BS+ve Fall - multifactorial, likely deconditioning - PT/OT - placement requested 2/2 barriers to care at home Rib fractures - pain control, encourage IS use with nursing Abnormal UA with concern for UTI - no evidence active infectious pathology. Close monitoring. Else see resident documentation as noted. Subjective Patient without any acute events overnight. She denied pain this morning except with movement. She denies SOB, nausea, vomiting. Review of Systems Constitutional: no fever, no chills and no malaise Respiratory: no cough and no dyspnea Cardiovascular: no chest pain, no palpitations and no edema Gastrointestinal: no abdominal pain, no constipation and no diarrhea/loose stools Genitourinary: no dysuria and no hematuria Physical Exam Constitutional: WD/WN, vitals as above Respiratory: normal respiratory effort, lungs clear to auscultation Cardiovascular: RRR, no murmur, no edema Gastrointestinal (Abdomen): normal bowel sounds, soft, nontender, no hepatosplenomegaly Skin: no rashes, warm and dry (bruising noted on right anterior chest wall) Results & Data Results & Data ([facility] Vital Signs (Past 12 Hours) Vital Signs Temp Pulse Resp BP Pulse Ox 06/20/21 23:04 36.4 C L 65 20 179/70 H 93 Resident Activity Tracking Resident Involvement: Resident Care Provided Care Provided: Adult Hospital Medicine (1) Fall at home Encounter type: initial encounter Qualified Code(s): W19.XXXA - Unspecified fall, initial encounter; Y92.009 - Unspecified place in unspecified non- institutional (private) residence as the place of occurrence of the external cause
[2021-06-21] MEDS: amLODIPine BESYLATE 5 MG TAB PO SCH (10:22)
[2021-06-21] MEDS: ESCITALOPRAM OXALATE 10 MG TAB PO SCH (10:22)
[2021-06-21] MEDS: CLOPIDOGREL BISULFATE 75 MG TAB PO SCH (10:23)
[2021-06-21] MEDS: METOPROLOL SUCC 50MG EXT REL TAB PO SCH (10:23)
[2021-06-21] MEDS: ISOSORBIDE MONO EXTENDED REL 30 MG TABCR PO SCH (10:23)
[2021-06-21] MEDS: ACETAMINOPHEN 325 MG TAB PO SCH ×2 (10:23→17:08)
[2021-06-21] MEDS: PANTOprazole 40 MG TAB PO SCH (10:23)
[2021-06-21] MEDS: HEPARIN SOD 5,000 UNIT/0.5 ML VIAL SQ SCH ×2 (10:24→22:00)
[2021-06-21] MEDS ORDERED: Nursing to Pharmacy Communication SCH (10:30)
[2021-06-21] MEDS: ASPIRIN 81 MG ECTAB PO SCH (10:36)
[2021-06-21] MEDS: LIDOCAINE 5% 1 PATCH TD SCH (10:37)
[2021-06-21] MEDS: oxyCODONE HCL IR 5 MG TAB (IMMEDIATE RELEASE) PO PRN (15:46)
[2021-06-21] MEDS: ATORVASTATIN 40 MG TAB PO SCH (22:00)
[2021-06-22] MEDS: ACETAMINOPHEN 325 MG TAB PO SCH ×3 (02:33→16:35)
[2021-06-22] MEDS: LEVOTHYROXINE SODIUM 137 MCG TABLET PO SCH (05:48)
[2021-06-22 06:52] LABS: Basophils # (auto) 0.03 K/uL (0-0.2); Basophils % (auto) 0.5 %; Eosinophils # (auto) 0.26 K/uL (0-0.5); Eosinophils % (auto) 4.5 %; Hematocrit (blood only) 34.1 % (37-47); Hemoglobin 11.4 g/dL (12.0-16.0); Immature Granulocytes # (auto) 0.01 K/uL (0.00-0.02); Immature Granulocytes % (auto) 0.2 %; Lymphocytes # (auto) 2.09 K/uL (1.2-3.4); Lymphocytes % (auto) 36.3 %; Mean Corpuscular Hemoglobin 28.1 pg (25-34); Mean Corpuscular Hgb Conc 33.4 g/dL (32-36); Mean Platelet Volume 10.2 fL (7.4-10.4); Monocytes # (auto) 0.62 K/uL (0.11-0.59); Monocytes % (auto) 10.8 %; Neutrophils # (auto) 2.75 K/uL (1.4-6.5); Neutrophils % (auto) 47.7 %; Platelet Count 237 K/uL (130-400); RDW Coefficient of Variation 14.3 % (11.5-14.5); RDW Standard Deviation 44.1 fL (36.4-46.3); Red Blood Count 4.06 M/uL (4.2-5.4); White Blood Count 5.76 K/uL (4.8-10.8)
--- NOTE | 2021-06-22 07:14 | Hospitalist Progress Note ---
Date of Service June 22, 2021 Assessment & Plan (1) Fall at home: Plan: 85yo female with dementia admitted for fall with rib fractures and ambulatory dysfunction with concern for home safety. Fall, ambulatory dysfunction: Differential on admission included mechanical fall, syncope, arrhythmia, seizure. CVA unlikely given nonfocal findings. No evidence of seizure. [place] unlikely given negative serial troponins. Telemetry without evidence of arrhythmia. PT/OT ordered; SNF placement vs. 24 hour care. CM assisting with placement, and Office of Aging involved. Rib fractures: Fractures noted of the right 2nd-4th ribs following the fall. No flail chest or additional concerns. Pain control with Tylenol, lidocaine patches scheduled. Oxycodone as needed for breakthrough pain. VLAD: Creatinine 1.5; given IV fluids and encouraged to drink water. Holding home lisinopril/HCTZ. BMP tomorrow. CAD: Continue Plavix, metoprolol, Imdur, statin, amlodipine. Aspirin discontinued as patient is at high risk for falls to decrease bleeding risk. Patient is >1 year from any CVA or [place]. Dementia: Patient with severe memory issues at baseline; oriented only to person. 06/18: patient became agitated/combative overnight, attempted to bite staff. If agitation recurs, verbal deescalation for mild agitation. Haldol IM 5mg prn combativeness, removing medical equipment, or if a danger to self/others. Continue home escitalopram. Asymptomatic bacteriuria: Patient was being treated for UTI prior to admission, finished 2 days of cefdinir. However, per daughter, patient's symptoms were primarily cognitive rather than urinary; unlikely true UTI. No intervention indicated at this time. Patient has plans to follow up with Urology. HTN: BP elevated to 180s in ED, though without symptoms. Continue home amlodipine, Imdur, metoprolol. Currently holding home lisinopril/HCTZ due to VLAD. History of CVA (12/2017): Seen by neurology after CVA in 2018. DAPT discontinued in favor of Plavix monotherapy. Hypothyroidism: Continue levothyroxine. Code status: full code FEN: heart healthy diet DVT ppx: heparin sq Dispo: med/surg, placement pending PT/OT evaluation Admission and Anticipated Discharge Date Admission Date: June 18, 2021 Supervising Physician Co-Signing Physician Notes Attending attestation Pt seen and examined in concert with Dr. Oakley. In agreement with the documented findings as noted in the resident documentation with any exceptions or additions as noted here. Ongoing sharp pain of right chest well controlled by position and current medication. No other complaints at time. Patient has not been hydrating well, requiring reminders etc. On examination, S1/S2 nl RRR no MCG. CTAB. Abd NT/ND BS+ve VLAD - increased Cr likely in the setting of poor PO intake. Encourage same (and met with good effort) but will bolus today and recheck in AM. Fall - multifactorial, likely deconditioning - PT/OT - placement requested 2/2 barriers to care at home Rib fractures - pain control, encourage IS use with nursing Abnormal UA with concern for UTI - no evidence active infectious pathology. Close monitoring. CAD with NSTEMI hx, CVA in 2018 with ongoing DAPT - has been tolerating well but no longer meeting criteria by available records so will d/c ASA and continue clopidogrel Else see resident documentation as noted. Subjective Patient without acute events or agitation overnight. She reports pain with deep inspiration and with movement at the area of her rib fractures, otherwise no symptoms. Review of Systems Constitutional: no fever, no chills and no malaise Respiratory: no cough and no dyspnea Cardiovascular: + chest pain (chest wall pain); no palpitations and no edema Gastrointestinal: no abdominal pain, no constipation and no diarrhea/loose stools Genitourinary: no dysuria and no hematuria Physical Exam Constitutional: WD/WN, vitals as above Respiratory: normal respiratory effort, lungs clear to auscultation Cardiovascular: RRR, no murmur, no edema Gastrointestinal (Abdomen): normal bowel sounds, soft, nontender, no hepatosplenomegaly Skin: no rashes, warm and dry (bruising noted on right anterior chest wall) Results & Data Results & Data ([facility]) Vital Signs (Past 12 Hours) Vital Signs Temp Pulse Resp BP Pulse Ox 06/22/21 06:44 36.9 C 70 18 144/105 H 92 06/21/21 23:13 114/63 06/21/21 22:44 36.8 C 70 18 110/40 L 93 Resident Activity Tracking Resident Involvement: Resident Care Provided Care Provided: Adult Hospital Medicine (1) Fall at home Encounter type: initial encounter Qualified Code(s): W19.XXXA - Unspecified fall, initial encounter; Y92.009 - Unspecified place in unspecified non- institutional (private) residence as the place of occurrence of the external cause
[2021-06-22 07:17] LABS: BUN Creatinine Ratio 25.5 (10-20); Calcium 8.8 mg/dl (8.5-10.1); Creatinine Clr Calc Pharmacy 26.8 ml/min; Est GFR (African American) 35.3 ml/min; Est GFR (Non-African American) 30.5 ml/min; Potassium 4.2 mmol/L (3.5-5.1)
[2021-06-22] MEDS ORDERED: SODIUM CHLORIDE 0.9% 500 ML IV ONE (07:41)
[2021-06-22] MEDS: amLODIPine BESYLATE 5 MG TAB PO SCH (09:41)
[2021-06-22] MEDS: METOPROLOL SUCC 50MG EXT REL TAB PO SCH (09:41)
[2021-06-22] MEDS: ASPIRIN 81 MG ECTAB PO SCH (09:41)
[2021-06-22] MEDS: ISOSORBIDE MONO EXTENDED REL 30 MG TABCR PO SCH (09:41)
[2021-06-22] MEDS: ESCITALOPRAM OXALATE 10 MG TAB PO SCH (09:41)
[2021-06-22] MEDS: CLOPIDOGREL BISULFATE 75 MG TAB PO SCH (09:42)
[2021-06-22] MEDS: LIDOCAINE 5% 1 PATCH TD SCH (10:23)
[2021-06-22] MEDS: HEPARIN SOD 5,000 UNIT/0.5 ML VIAL SQ SCH ×2 (10:23→21:09)
[2021-06-22] MEDS: PANTOprazole 40 MG TAB PO SCH (10:23)
[2021-06-22] MEDS ORDERED: SODIUM CHLORIDE 0.9% 1000ML 500 ML IV ONE (12:53)
[2021-06-22] MEDS: ATORVASTATIN 40 MG TAB PO SCH (21:09)
[2021-06-23] MEDS: ACETAMINOPHEN 325 MG TAB PO SCH ×3 (00:17→17:52)
[2021-06-23] MEDS: oxyCODONE HCL IR 5 MG TAB (IMMEDIATE RELEASE) PO PRN (05:12)
[2021-06-23] MEDS: LEVOTHYROXINE SODIUM 137 MCG TABLET PO SCH (05:13)
--- NOTE | 2021-06-23 07:06 | Hospitalist Progress Note ---
Date of Service June 23, 2021 Assessment & Plan (1) Fall at home: Plan: 85yo female with dementia admitted for fall with rib fractures and ambulatory dysfunction with concern for home safety. Fall, ambulatory dysfunction Differential on admission included mechanical fall, syncope, arrhythmia, seizure CVA unlikely given nonfocal findings, no evidence of seizure [place] unlikely given negative serial troponins; telemetry without evidence of arrhythmia PT/OT ordered; CM assisting with SNF placement vs. 24 hour care (referral placed for [place]) Office of Aging involved Rib fractures Fractures noted of the right 2nd-4th ribs following the fall No flail chest or additional concerns Pain control with APAP, lidocaine patches, oxycodone prn breakthrough pain VLAD Creatinine 1.5 (baseline 1.2-1.5); given IV fluids and encouraged to drink water Holding home lisinopril/HCTZ Trend daily BMP CAD Continue home plavix, metoprolol, imdur, statin, amlodipine Aspirin discontinued as patient is at high risk for falls to decrease bleeding risk Dementia Patient with severe memory issues at baseline; oriented only to person 06/18: patient became agitated/combative overnight, attempted to bite staff If agitation recurs, verbal deescalation for mild agitation; haldol IM 5mg prn combativeness, removing medical equipment, or if a danger to self/others Continue home escitalopram Asymptomatic bacteriuria Patient was being treated for UTI prior to admission, finished 2 days of c efdinir However, per daughter, patient's symptoms were primarily cognitive rather than urinary; unlikely true UTI No intervention indicated at this time Patient has plans to follow up with urology HTN BP elevated to 180s in ED, though without symptoms Continue home amlodipine, imdur, metoprolol Currently holding home lisinopril/HCTZ due to VLAD History of CVA Seen by neurology after CVA in 2018 DAPT discontinued in favor of plavix monotherapy Hypothyroidism Continue levothyroxine Code status: full code FEN: heart healthy diet DVT ppx: heparin sq Dispo: med/surg, placement pending PT/OT evaluation Admission and Anticipated Discharge Date Admission Date: June 18, 2021 Supervising Physician Co-Signing Physician Notes I personally examined the patient and verified all kyle points of history and exam, discussed case, and agree with decision making with Dr London.. Feeling reasonably okay. Notes that rib pain is under good control. Awaiting rehab. Vitals noted, in general she is pleasant no distress. HEENT normocephalic atraumatic mucous membranes moist. Breathing unlabored no accessory muscle use good effort. Skin shows no rashes no pallor or icterus. Neuro without focal deficits VLAD -likely was from dehydration. Improving. Fall - multifactorial, likely deconditioning - PT/OT - placement requested 2/2 barriers to care at home, stable pending placement Rib fractures - pain controlled Abnormal UA with concern for UTI - no evidence active infectious pathology. Close monitoring. CAD with NSTEMI hx, CVA in 2018 with ongoing DAPT - asymptomatic Otherwise as above Subjective Patient seen and evaluated at bedside this morning. No acute events overnight. Today, patient feels well and denies pain at rest, though she continues to have right-sided rib pain with inspiration and when moving. Denies shortness of breath, abdominal pain, nausea, vomiting, diarrhea, or other symptoms. Physical Exam Physical Exam: Constitutional: well-appearing, no acute distress, laying in bed HEENT: NCAT, no conjunctival injection CV: regular rhythm, no murmur appreciated, extremities well-perfused, no LE edema Resp: CTABL, no wheezes/rales/rhonchi appreciated, no increased work of breathing GI: soft, nondistended, nontender, BS normoactive MSK: right-sided chest wall tenderness Neuro: alert, oriented to person only, no focal deficit Results & Data Results & Data ([facility]) Vital Signs (Past 12 Hours) Vital Signs Temp Pulse Resp BP Pulse Ox 06/22/21 22:45 36.7 C 63 18 136/60 97 06/22/21 19:08 36.6 C 77 20 157/63 H 90 Resident Activity Tracking Resident Involvement: Resident Care Provided Care Provided: Adult Hospital Medicine (1) Fall at home Encounter type: initial encounter Qualified Code(s): W19.XXXA - Unspecified fall, initial encounter; Y92.009 - Unspecified place in unspecified non- institutional (private) residence as the place of occurrence of the external cause
[2021-06-23 08:30] LABS: BUN Creatinine Ratio 26.7 (10-20); Calcium 8.9 mg/dl (8.5-10.1); Creatinine Clr Calc Pharmacy 30.3 ml/min; Est GFR (African American) 41.1 ml/min; Est GFR (Non-African American) 35.5 ml/min; Potassium 4.4 mmol/L (3.5-5.1)
[2021-06-23] MEDS: LIDOCAINE 5% 1 PATCH TD SCH (08:46)
[2021-06-23] MEDS: ESCITALOPRAM OXALATE 10 MG TAB PO SCH (08:47)
[2021-06-23] MEDS: ISOSORBIDE MONO EXTENDED REL 30 MG TABCR PO SCH (08:47)
[2021-06-23] MEDS: CLOPIDOGREL BISULFATE 75 MG TAB PO SCH (08:47)
[2021-06-23] MEDS: HEPARIN SOD 5,000 UNIT/0.5 ML VIAL SQ SCH ×2 (08:48→20:31)
[2021-06-23] MEDS: PANTOprazole 40 MG TAB PO SCH (08:48)
[2021-06-23] MEDS: amLODIPine BESYLATE 5 MG TAB PO SCH (08:52)
[2021-06-23] MEDS: METOPROLOL SUCC 50MG EXT REL TAB PO SCH (08:57)
--- NOTE | 2021-06-23 17:57 | Billing Data ---
Date of Service June 23, 2021 Coding Level of Care Code 04075 Subseq Hosp Care Lvl 2
[2021-06-23] MEDS: ATORVASTATIN 40 MG TAB PO SCH (20:30)
[2021-06-24] MEDS: ACETAMINOPHEN 325 MG TAB PO SCH ×3 (00:42→17:23)
[2021-06-24] MEDS: LEVOTHYROXINE SODIUM 137 MCG TABLET PO SCH (05:30)
--- NOTE | 2021-06-24 06:57 | Hospitalist Progress Note ---
Date of Service June 24, 2021 Assessment & Plan (1) Fall at home: Plan: 85yo female with dementia admitted for fall with rib fractures and ambulatory dysfunction with concern for home safety. Fall, ambulatory dysfunction Differential on admission included mechanical fall, syncope, arrhythmia, seizure CVA unlikely given nonfocal findings, no evidence of seizure [place] unlikely given negative serial troponins; telemetry without evidence of arrhythmia PT/OT ordered; CM assisting with SNF placement vs. 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 (baseline 1.2-1.5); given IV fluids and encouraged to drink water Holding home lisinopril/HCTZ Trend daily BMP CAD Continue home plavix, metoprolol, imdur, statin, amlodipine Aspirin discontinued as patient is at high risk for falls to decrease bleeding risk Dementia Patient with severe memory issues at baseline; oriented only to person 06/18: patient became agitated/combative overnight, attempted to bite staff If agitation recurs, verbal deescalation for mild agitation; haldol IM 5mg prn combativeness, removing medical equipment, or if a danger to self/others Continue home escitalopram Asymptomatic bacteriuria Patient was being treated for UTI prior to admission, finished 2 days of c efdinir However, per daughter, patient's symptoms were primarily cognitive rather than urinary; unlikely true UTI No intervention indicated at this time Patient has plans to follow up with urology HTN BP elevated to 180s in ED, though without symptoms Continue home amlodipine, imdur, metoprolol Currently holding home lisinopril/HCTZ due to VLAD History of CVA Seen by neurology after CVA in 2018 DAPT discontinued in favor of plavix monotherapy Hypothyroidism Continue levothyroxine Code status: full code FEN: heart healthy diet DVT ppx: heparin sq Dispo: med/surg, placement pending (CM awaiting call back from [facility]) Admission and Anticipated Discharge Date Admission Date: June 18, 2021 Supervising Physician Co-Signing Physician Notes I personally examined the patient and verified all kyle points of history and exam, discussed case, and agree with decision making with Dr London.. Working with therapy. Awaiting placement. PT notes that she had some pain with therapy but was able to work reasonably okaydefinitely needs placement. Vitals noted, in general she is pleasant no distress. HEENT normocephalic atraumatic mucous membranes moist. Breathing unlabored no accessory muscle use good effort. Skin shows no rashes no pallor or icterus. Neuro without focal deficits VLAD -likely was from dehydration. Creatinine 1.27 Fall - multifactorial, likely deconditioning - PT/OT - placement requested 2/2 barriers to care at home, working on placementstable to go once available Rib fractures - pain controlled overall Abnormal UA with concern for UTI - no evidence active infectious pathology. Close monitoring. CAD with NSTEMI hx, CVA in 2018 with ongoing DAPT - asymptomatic Otherwise as above Subjective Patient seen and evaluated at bedside this morning. No acute events overnight. Today, patient feels well and has no specific complaints. Patient thinks her rib pain has improved from yesterday. Still has no pain at rest but does continue to have some pain when moving. No SOB, abd pain, nausea, vomiting, or other symptoms. Has been working well with PT. Physical Exam Physical Exam: Constitutional: well-appearing, no acute distress, laying in bed HEENT: NCAT, no conjunctival injection CV: regular rhythm, no murmur appreciated, extremities well-perfused, no LE edema Resp: CTABL, no wheezes/rales/rhonchi appreciated, breathing nonlabored MSK: right-sided chest wall tenderness Neuro: alert, oriented to person only, no focal deficit Results & Data Results & Data ([facility]) Vital Signs (Past 12 Hours) Vital Signs Temp Pulse Resp BP Pulse Ox 06/23/21 23:05 36.4 C L 59 L 18 144/72 H 95 Resident Activity Tracking Resident Involvement: Resident Care Provided Care Provided: Adult Hospital Medicine (1) Fall at home Encounter type: initial encounter Qualified Code(s): W19.XXXA - Unspecified fall, initial encounter; Y92.009 - Unspecified place in unspecified non- institutional (private) residence as the place of occurrence of the external cause
[2021-06-24 07:00] LABS: Basophils # (auto) 0.04 K/uL (0-0.2); Basophils % (auto) 0.7 %; Eosinophils # (auto) 0.29 K/uL (0-0.5); Eosinophils % (auto) 5.3 %; Hematocrit (blood only) 33.8 % (37-47); Hemoglobin 10.8 g/dL (12.0-16.0); Lymphocytes # (auto) 1.72 K/uL (1.2-3.4); Lymphocytes % (auto) 31.5 %; Mean Corpuscular Hemoglobin 27.7 pg (25-34); Mean Corpuscular Volume 86.7 fL (80-100); Mean Platelet Volume 10.6 fL (7.4-10.4); Monocytes # (auto) 0.46 K/uL (0.11-0.59); Monocytes % (auto) 8.4 %; Neutrophils # (auto) 2.95 K/uL (1.4-6.5); Neutrophils % (auto) 54.1 %; Platelet Count 253 K/uL (130-400); RDW Coefficient of Variation 14.5 % (11.5-14.5); RDW Standard Deviation 45.7 fL (36.4-46.3); White Blood Count 5.46 K/uL (4.8-10.8)
[2021-06-24 07:20] LABS: BUN Creatinine Ratio 28.3 (10-20); Creatinine Clr Calc Pharmacy 32.2 ml/min; Est GFR (African American) 44.3 ml/min; Est GFR (Non-African American) 38.2 ml/min; Potassium 3.9 mmol/L (3.5-5.1)
[2021-06-24] MEDS: LIDOCAINE 5% 1 PATCH TD SCH (07:31)
[2021-06-24] MEDS: HEPARIN SOD 5,000 UNIT/0.5 ML VIAL SQ SCH ×2 (07:31→20:06)
[2021-06-24] MEDS: METOPROLOL SUCC 50MG EXT REL TAB PO SCH (07:32)
[2021-06-24] MEDS: PANTOprazole 40 MG TAB PO SCH (07:32)
[2021-06-24] MEDS: amLODIPine BESYLATE 5 MG TAB PO SCH (07:32)
[2021-06-24] MEDS: CLOPIDOGREL BISULFATE 75 MG TAB PO SCH (07:32)
[2021-06-24] MEDS: ESCITALOPRAM OXALATE 10 MG TAB PO SCH (07:32)
[2021-06-24] MEDS: ISOSORBIDE MONO EXTENDED REL 30 MG TABCR PO SCH (07:33)
[2021-06-24] MEDS: oxyCODONE HCL IR 5 MG TAB (IMMEDIATE RELEASE) PO PRN (13:08)
--- NOTE | 2021-06-24 18:48 | Billing Data ---
Date of Service June 24, 2021 Coding Level of Care Code 30200 Subseq Hosp Care Lvl 2
[2021-06-24] MEDS: ATORVASTATIN 40 MG TAB PO SCH (20:06)
[2021-06-25] MEDS: ACETAMINOPHEN 325 MG TAB PO SCH ×4 (02:05→23:09)
[2021-06-25] MEDS: LEVOTHYROXINE SODIUM 137 MCG TABLET PO SCH (05:37)
--- NOTE | 2021-06-25 07:38 | Hospitalist Progress Note ---
Date of Service June 25, 2021 Assessment & Plan (1) Fall at home: Plan: 85yo female with dementia admitted for fall with rib fractures and ambulatory dysfunction with concern for home safety. Fall, ambulatory dysfunction Differential on admission included mechanical fall, syncope, arrhythmia, seizure CVA unlikely given nonfocal findings, no evidence of seizure [place] unlikely given negative serial troponins; telemetry without evidence of arrhythmia PT/OT ordered; CM assisting with SNF placement vs. 24 hour care (referral placed for [facility] vs [facility]) Office of Aging involved Rib fractures Fractures noted of the right 2nd-4th ribs following the fall No flail chest or additional concerns Pain control with APAP, lidocaine patches, oxycodone prn breakthrough pain VLAD 06/22: creatinine 1.53 (baseline 1.0-1.2); given IV fluids and encouraged to drink water Trend daily BMP - creatinine has since improved to 1.22 Holding home lisinopril/HCTZ until creatinine falls below 1.2 CAD Continue home plavix, metoprolol, imdur, statin, amlodipine Lisinopril currently held Aspirin discontinued as patient is at high risk for falls to decrease bleeding risk Dementia Patient with severe memory issues at baseline; oriented only to person 06/18: patient became agitated/combative overnight, attempted to bite staff If agitation recurs, verbal deescalation for mild agitation; haldol IM 5mg prn combativeness, removing medical equipment, or if a danger to self/others Continue home escitalopram Asymptomatic bacteriuria Patient was being treated for UTI prior to admission, finished 2 days of cefdinir However, per daughter, patient's symptoms were primarily cognitive rather than urinary; unlikely true UTI No intervention indicated at this time Patient has plans to follow up with urology HTN Continue home amlodipine, imdur, metoprolol Currently holding home lisinopril/HCTZ due to VLAD as above History of CVA Seen by neurology after CVA in 2018 DAPT discontinued in favor of plavix monotherapy Hypothyroidism Continue levothyroxine Code status: full code FEN: heart healthy diet DVT ppx: heparin sq Dispo: med/surg, placement pending (CM awaiting call back from [facility] vs [facility]) Admission and Anticipated Discharge Date Admission Date: June 18, 2021 Supervising Physician Co-Signing Physician Notes I personally examined the patient and verified all kyle points of history and exam, discussed case, and agree with decision making with Dr London.. Still waiting on placement no acute complaints. Vitals noted, in general she is pleasant no distress. HEENT normocephalic atraumatic mucous membranes moist. Breathing unlabored no accessory muscle use good effort. Skin shows no rashes no pallor or icterus. Neuro without focal deficits VLAD -likely was from dehydration. Follow periodically Fall - multifactorial, likely deconditioning - PT/OT - placement requested 2/2 barriers to care at home, working on placementstable to go once available Rib fractures - pain controlled overall Abnormal UA with concern for UTI - no evidence active infectious pathology. Close monitoring. CAD with NSTEMI hx, CVA in 2018 with ongoing DAPT - asymptomatic Otherwise as above Subjective Patient seen and evaluated at bedside this morning. No acute events overnight. Today, patient feels "alright" and has no specific complaints. Rib pain continues to improve. Denies SOB, abdominal pain, nausea, vomiting, or other symptoms. Physical Exam Physical Exam: Constitutional: well-appearing, no acute distress, sitting in bedside chair HEENT: NCAT, no conjunctival injection CV: regular rhythm, no murmur appreciated, extremities well-perfused, no LE edema Resp: CTABL, no wheezes/rales/rhonchi appreciated, breathing nonlabored MSK: right-sided chest wall tenderness Neuro: alert, oriented to person only, no focal deficit Results & Data Results & Data ([facility]) Vital Signs (Past 12 Hours) Vital Signs Temp Pulse Resp BP Pulse Ox 06/25/21 07:06 36.7 C 54 L 18 169/55 H 96 06/24/21 23:18 36.5 C 74 18 142/61 H 97 Resident Activity Tracking Resident Involvement: Resident Care Provided Care Provided: Adult Hospital Medicine (1) Fall at home Encounter type: initial encounter Qualified Code(s): W19.XXXA - Unspecified fall, initial encounter; Y92.009 - Unspecified place in unspecified non- institutional (private) residence as the place of occurrence of the external cause
[2021-06-25] MEDS: CLOPIDOGREL BISULFATE 75 MG TAB PO SCH (07:50)
[2021-06-25] MEDS: HEPARIN SOD 5,000 UNIT/0.5 ML VIAL SQ SCH ×2 (07:50→20:29)
[2021-06-25] MEDS: METOPROLOL SUCC 50MG EXT REL TAB PO SCH (07:50)
[2021-06-25] MEDS: PANTOprazole 40 MG TAB PO SCH (07:50)
[2021-06-25] MEDS: LIDOCAINE 5% 1 PATCH TD SCH (07:50)
[2021-06-25] MEDS: ISOSORBIDE MONO EXTENDED REL 30 MG TABCR PO SCH (07:50)
[2021-06-25] MEDS: amLODIPine BESYLATE 5 MG TAB PO SCH (07:51)
[2021-06-25] MEDS: ESCITALOPRAM OXALATE 10 MG TAB PO SCH (07:51)
[2021-06-25 09:10] LABS: BUN Creatinine Ratio 28.7 (10-20); Calcium 8.9 mg/dl (8.5-10.1); Creatinine Clr Calc Pharmacy 33.6 ml/min; Est GFR (African American) 46.5 ml/min; Est GFR (Non-African American) 40.1 ml/min; Potassium 4.2 mmol/L (3.5-5.1)
[2021-06-25 09:23] LABS: Basophils # (auto) 0.04 K/uL (0-0.2); Basophils % (auto) 0.8 %; Eosinophils # (auto) 0.28 K/uL (0-0.5); Eosinophils % (auto) 5.3 %; Hematocrit (blood only) 33.4 % (37-47); Hemoglobin 10.7 g/dL (12.0-16.0); Immature Granulocytes # (auto) 0.01 K/uL (0.00-0.02); Immature Granulocytes % (auto) 0.2 %; Lymphocytes # (auto) 1.62 K/uL (1.2-3.4); Lymphocytes % (auto) 30.7 %; Mean Corpuscular Hemoglobin 27.3 pg (25-34); Mean Corpuscular Volume 85.2 fL (80-100); Mean Platelet Volume 10.5 fL (7.4-10.4); Monocytes # (auto) 0.47 K/uL (0.11-0.59); Monocytes % (auto) 8.9 %; Neutrophils # (auto) 2.85 K/uL (1.4-6.5); Neutrophils % (auto) 54.1 %; Platelet Count 252 K/uL (130-400); RDW Coefficient of Variation 14.6 % (11.5-14.5); RDW Standard Deviation 45.5 fL (36.4-46.3); Red Blood Count 3.92 M/uL (4.2-5.4); White Blood Count 5.27 K/uL (4.8-10.8)
--- NOTE | 2021-06-25 19:28 | Billing Data ---
Date of Service June 25, 2021 Coding Level of Care Code 94341 Subseq Hosp Care Lvl 1
[2021-06-25] MEDS: ATORVASTATIN 40 MG TAB PO SCH (20:29)
[2021-06-26] MEDS: LEVOTHYROXINE SODIUM 137 MCG TABLET PO SCH (05:32)
[2021-06-26 08:13] LABS: Calcium 8.9 mg/dl (8.5-10.1); Creatinine Clr Calc Pharmacy 34.7 ml/min; Est GFR (African American) 48.4 ml/min; Est GFR (Non-African American) 41.7 ml/min; Potassium 3.9 mmol/L (3.5-5.1)
[2021-06-26] MEDS: ACETAMINOPHEN 325 MG TAB PO SCH ×2 (08:18→14:03)
[2021-06-26] MEDS: PANTOprazole 40 MG TAB PO SCH (08:19)
[2021-06-26] MEDS: amLODIPine BESYLATE 5 MG TAB PO SCH (08:19)
[2021-06-26] MEDS: ESCITALOPRAM OXALATE 10 MG TAB PO SCH (08:19)
[2021-06-26] MEDS: CLOPIDOGREL BISULFATE 75 MG TAB PO SCH (08:19)
[2021-06-26] MEDS: METOPROLOL SUCC 50MG EXT REL TAB PO SCH (08:19)
[2021-06-26] MEDS: HEPARIN SOD 5,000 UNIT/0.5 ML VIAL SQ SCH ×2 (08:20→20:18)
[2021-06-26] MEDS: ISOSORBIDE MONO EXTENDED REL 30 MG TABCR PO SCH (08:20)
[2021-06-26] MEDS: LIDOCAINE 5% 1 PATCH TD SCH (08:21)
--- NOTE | 2021-06-26 15:14 | Hospitalist Progress Note ---
Date of Service June 26, 2021 Assessment & Plan (1) Fall at home: Plan: 85yo female with dementia admitted for fall with rib fractures and ambulatory dysfunction with concern for home safety. Fall, ambulatory dysfunction Differential on admission included mechanical fall, syncope, arrhythmia, seizure CVA unlikely given nonfocal findings, no evidence of seizure [place] unlikely given negative serial troponins; telemetry without evidence of arrhythmia Office of Aging involved PT/OT ordered; CM assisting with SNF placement vs. 24 hour care (referral placed for [facility]) 06/26: have not heard back from any facility yet; new referral placed for [facility] Rib fractures Fractures noted of the right 2nd-4th ribs following the fall No flail chest or additional concerns Pain control with APAP, lidocaine patches, oxycodone prn breakthrough pain VLAD 06/22: creatinine 1.53 (baseline 1.0-1.2); given IV fluids and encouraged to d rink water; home lisinopril/HCTZ held (06/22-06/26) 06/26: creatinine improved to 1.18 (baseline), restarted lisinopril/HCTZ Trend daily BMP CAD Continue home plavix, metoprolol, imdur, statin, amlodipine, lisinopril/HCTZ Aspirin discontinued as patient is at high risk for falls to decrease bleeding risk Dementia Patient with severe memory issues at baseline; oriented only to person 06/18: patient became agitated/combative overnight, attempted to bite staff If agitation recurs, verbal deescalation for mild agitation; haldol IM 5mg prn combativeness, removing medical equipment, or if a danger to self/others Continue home escitalopram Asymptomatic bacteriuria Patient was being treated for UTI prior to admission, finished 2 days of cefdinir However, per daughter, patient's symptoms were primarily cognitive rather than urinary; unlikely true UTI No intervention indicated at this time Patient has plans to follow up with urology HTN Continue home amlodipine, imdur, metoprolol, lisinopril/HCTZ History of CVA Seen by neurology after CVA in 2018 DAPT discontinued in favor of plavix monotherapy Hypothyroidism Continue levothyroxine Code status: full code FEN: heart healthy diet DVT ppx: heparin sq Dispo: med/surg pending placement Admission and Anticipated Discharge Date Admission Date: June 18, 2021 Supervising Physician Co-Signing Physician Notes I personally examined the patient and verified all kyle points of history and exam, discussed case, and agree with decision making with Dr London.. no new problems, placement pending Vitals noted, in general she is pleasant no distress. HEENT normocephalic atraumatic mucous membranes moist. Breathing unlabored no accessory muscle use good effort. Skin shows no rashes no pallor or icterus. Neuro without focal deficits VLAD -likely was from dehydration. Follow periodically - BMP stable today Fall - multifactorial, likely deconditioning - PT/OT - placement requested 2/2 barriers to care at home, working on placementstable to go once available Rib fractures - pain controlled overall Abnormal UA with concern for UTI - no evidence active infectious pathology. C lose monitoring. CAD with NSTEMI hx, CVA in 2018 with ongoing DAPT - asymptomatic Otherwise as above Subjective Patient seen and evaluated at bedside this morning. No acute events overnight. Today, patient feels "okay" and has no specific complaints or concerns. Rib pain tolerable, about the same as yesterday. Denies SOB, abdominal pain, bloating, nausea, vomiting, diarrhea, or other symptoms. Physical Exam Physical Exam: Constitutional: well-appearing, no acute distress, sitting up in bed HEENT: MMM CV: regular rhythm, no murmur , extremities well-perfused, no LE edema Resp: CTABL, breathing nonlabored MSK: right-sided chest wall tenderness Neuro: alert, oriented to person only, no focal deficit Results & Data Results & Data ([facility]) Vital Signs (Past 12 Hours) Vital Signs Temp Pulse Resp BP Pulse Ox 06/26/21 06:41 36.5 C 52 L 18 148/70 H 96 Resident Activity Tracking Resident Involvement: Resident Care Provided Care Provided: Adult Hospital Medicine (1) Fall at home Encounter type: initial encounter Qualified Code(s): W19.XXXA - Unspecified fall, initial encounter; Y92.009 - Unspecified place in unspecified non- institutional (private) residence as the place of occurrence of the external cause
[2021-06-26] MEDS: LISINOPRIL/HCTZ 20/12.5MG 1 TAB TAB PO SCH (16:28)
--- NOTE | 2021-06-26 19:49 | Billing Data ---
Date of Service June 26, 2021 Coding Level of Care Code 12294 Subseq Hosp Care Lvl 1
[2021-06-26] MEDS: ATORVASTATIN 40 MG TAB PO SCH (20:18)
[2021-06-27] MEDS: ACETAMINOPHEN 325 MG TAB PO SCH ×4 (00:07→18:04)
[2021-06-27] MEDS: LEVOTHYROXINE SODIUM 137 MCG TABLET PO SCH (05:51)
[2021-06-27] MEDS: HEPARIN SOD 5,000 UNIT/0.5 ML VIAL SQ SCH ×2 (07:22→20:26)
[2021-06-27] MEDS: LISINOPRIL/HCTZ 20/12.5MG 1 TAB TAB PO SCH (07:23)
[2021-06-27] MEDS: PANTOprazole 40 MG TAB PO SCH (07:23)
[2021-06-27] MEDS: ESCITALOPRAM OXALATE 10 MG TAB PO SCH (07:23)
[2021-06-27] MEDS: CLOPIDOGREL BISULFATE 75 MG TAB PO SCH (07:23)
[2021-06-27] MEDS: METOPROLOL SUCC 50MG EXT REL TAB PO SCH (07:23)
[2021-06-27] MEDS: ISOSORBIDE MONO EXTENDED REL 30 MG TABCR PO SCH (07:23)
[2021-06-27] MEDS: amLODIPine BESYLATE 5 MG TAB PO SCH (07:24)
[2021-06-27] MEDS: LIDOCAINE 5% 1 PATCH TD SCH (07:24)
[2021-06-27 09:48] LABS: BUN Creatinine Ratio 21.7 (10-20); Calcium 9.4 mg/dl (8.5-10.1); Creatinine Clr Calc Pharmacy 35.1 ml/min; Est GFR (African American) 49.9 ml/min; Potassium 3.9 mmol/L (3.5-5.1)
--- NOTE | 2021-06-27 09:48 | Hospitalist Progress Note ---
Date of Service June 27, 2021 Assessment & Plan (1) Fall at home: Plan: 85yo female with dementia admitted for fall with rib fractures and ambulatory dysfunction with concern for home safety. Fall, ambulatory dysfunction: - Differential on admission included mechanical fall, syncope, arrhythmia, seizure - CVA unlikely given nonfocal findings, no evidence of seizure - [place] unlikely given negative serial troponins; telemetry without evidence of arrhythmia - Office of Aging involved - PT/OT ordered; CM assisting with SNF placement vs. 24 hour care (referral placed for [facility]) - placement complicated by overnight receiving Haldol Rib fractures: - Fractures noted of the right 2nd-4th ribs following the fall - No flail chest or additional concerns - Pain control with APAP, lidocaine patches, oxycodone prn breakthrough pain Acute Kidney Injury: - 06/22: creatinine 1.53 (baseline 1.0-1.2); continuing to improve after encouragement of oral intake - continue lisinopril/HCTZ - Trend daily BMP Coronary Artery Disease: - Continue home plavix, metoprolol, imdur, statin, amlodipine, lisinopril/HCTZ - Aspirin discontinued as patient is at high risk for falls to decrease bleeding risk Dementia: - Patient with severe memory issues at baseline; oriented only to person - 06/18: patient became agitated/combative overnight, attempted to bite staff - removed Haldol; would avoid medication calming of potential delirium/sun- downing - Continue home escitalopram Asymptomatic bacteriuria: - Patient was being treated for UTI prior to admission, finished 2 days of cefdinir - However, per daughter, patient's symptoms were primarily cognitive rather than urinary; unlikely true UTI - No intervention indicated at this time - Patient has plans to follow up with urology Hypertension: - Continue home amlodipine, imdur, metoprolol, lisinopril/HCTZ History of CVA: - Seen by neurology after CVA in 2018 - DAPT discontinued in favor of plavix monotherapy Hypothyroidism: - Continue levothyroxine Code status: full code FEN: heart healthy diet DVT ppx: heparin sq Admission and Anticipated Discharge Date Admission Date: June 18, 2021 Supervising Physician Co-Signing Physician Notes I personally examined the patient and verified all kyle points of history and exam, discussed case, and agree with decision making with Dr Márquez still no new issues Vitals noted, in general she is pleasant no distress. HEENT normocephalic atraumatic mucous membranes moist. Breathing unlabored no accessory muscle use good effort. Skin shows no rashes no pallor or icterus. Neuro without focal deficits VLAD -likely was from dehydration. Follow periodically Fall - multifactorial, likely deconditioning - PT/OT - placement requested 2/2 barriers to care at home, working on placementstable to go once available Rib fractures - no complaints of pain to me today Abnormal UA with concern for UTI - no evidence active infectious pathology. Close monitoring. CAD with NSTEMI hx, CVA in 2018 with ongoing DAPT - asymptomatic Otherwise as above Subjective Overnight had some agitation and ultimately was given one dose of Haldol, which settled her throughout the night. Then has returned to her normal self this morning. No meaningful contributions to her history expressed but able to deny pain to abdomen, legs, chest, and head. Review of Systems Review of Systems: All systems reviewed & are unremarkable except as noted in Subjective Physical Exam Constitutional: WD/WN, vitals as above Eyes: PERRL, conjunctivae normal, anicteric sclerae Respiratory: normal respiratory effort, lungs clear to auscultation Cardiovascular: Rate/Rhythm: regular rate and regular rhythm Vessels: normal peripheral pulses; no JVD Extremities: no edema Gastrointestinal (Abdomen): Inspection/Auscultation: normal bowel sounds; abdomen not distended Percussion/Palpation: abdomen soft; abdomen nontender and no guarding Skin: no rashes, warm and dry Psychiatric: Orientation: alert and oriented x 3 Results & Data Results & Data ([facility]) Laboratory Results 06/27/21 Range/Units 08:28 Sodium 139 (136-145) mmol/L Potassium 3.9 (3.5-5.1) mmol/L Chloride 107 (98-107) mmol/L Carbon Dioxide 24 (21-32) mmol/L Anion Gap 8 (3-11) BUN 25 H (6-23) mg/dl Creatinine 1.15 (0.6-1.2) mg/dl Est Cr Clr Drug Dosing 35.1 ml/min Est GFR ( Amer) 49.9 ml/min Est GFR (Non-Af Amer) 43.0 ml/min BUN/Creatinine Ratio 21.7 H (10-20) Glucose 144 H (70-99(Fasting)) mg/dl Calcium 9.4 (8.5-10.1) mg/dl Medications Administered Current Inpatient Medications Acetaminophen (Acetaminophen 325 Mg Tab) 650 mg PO Q8H [facility] Stop: 07/19/21 07:59 Last Admin: 06/27/21 07:22 Dose: 650 mg Documented by: Amlodipine Besylate (Amlodipine Besylate 5 Mg Tab) 2.5 mg PO DAILY [facility] Stop: 07/19/21 08:59 Last Admin: 06/27/21 07:24 Dose: 2.5 mg Documented by: Atorvastatin Calcium (Atorvastatin 40 Mg Tab) 40 mg PO HS [facility] Stop: 07/18/21 20:59 Last Admin: 06/26/21 20:18 Dose: 40 mg Documented by: Clopidogrel Bisulfate (Clopidogrel Bisulfate 75 Mg Tab) 75 mg PO QAM [facility] Stop: 07/19/21 08:59 Last Admin: 06/27/21 07:23 Dose: 75 mg Documented by: Escitalopram Oxalate (Escitalopram Oxalate 10 Mg Tab) 5 mg PO DAILY [facility] Stop: 07/19/21 08:59 Last Admin: 06/27/21 07:23 Dose: 5 mg Documented by: Lisinopril/HCTZ (Lisinopril/Hctz 20/12.5mg 1 Tab Tab) 1 tab PO QAM [facility] Stop: 07/26/21 15:14 Last Admin: 06/27/21 07:23 Dose: 1 tab Documented by: Heparin Sodium (Porcine) (Heparin Sod 5,000 Unit/0.5 Ml Vial) 5,000 units SQ Q12 [facility] Stop: 07/18/21 20:59 Last Admin: 06/27/21 07:22 Dose: 5,000 units Documented by: Isosorbide Mononitrate (Isosorbide Hemphill Extended Rel 30 Mg Tabcr) 30 mg PO QAM [facility] Stop: 07/19/21 08:59 Last Admin: 06/27/21 07:23 Dose: 30 mg Documented by: Levothyroxine Sodium (Levothyroxine Sodium 137 Mcg Tablet) 137 mcg PO DAILYBB [facility] Stop: 07/19/21 06:29 Last Admin: 06/27/21 05:51 Dose: 137 mcg Documented by: Lidocaine (Lidocaine 5% 1 Patch) 1 patch TD DAILY@0900 [facility] Stop: 07/21/21 08:59 Last Admin: 06/27/21 07:24 Dose: 1 patch Documented by: Metoprolol Succinate (Metoprolol Succ 50mg Ext Rel Tab) 50 mg PO QAM [facility] Stop: 07/19/21 08:59 Last Admin: 06/27/21 07:23 Dose: 50 mg Documented by: Miscellaneous (Remove Lidoderm Patch) 1 ea N/A DAILY@1800 [facility] Stop: 07/21/21 17:59 Last Admin: 06/26/21 14:03 Dose: Not Given Documented by: Ondansetron HCl (Ondansetron Inj 2 Mg/Ml 2 Ml Vial) 4 mg IV Q4H PRN PRN Reason: Nausea Stop: 07/18/21 17:35 Oxycodone HCl (Oxycodone Hcl Ir 5 Mg Tab (Immediate Release)) 5 mg PO Q6H PRN PRN Reason: severe or breakthrough pain Stop: 07/04/21 13:42 Last Admin: 06/24/21 13:08 Dose: 5 mg Documented by: Pantoprazole Sodium (Pantoprazole 40 Mg Tab) 40 mg PO DAILY [facility] Stop: 07/19/21 08:59 Last Admin: 06/27/21 07:23 Dose: 40 mg Documented by: Resident Activity Tracking Resident Involvement: Resident Care Provided Care Provided: Adult Hospital Medicine (1) Fall at home Encounter type: initial encounter Qualified Code(s): W19.XXXA - Unspecified fall, initial encounter; Y92.009 - Unspecified place in unspecified non-institutional (private) residence as the place of occurrence of the external cause
--- NOTE | 2021-06-27 17:22 | Billing Data ---
Date of Service June 27, 2021 Coding Level of Care Code 33439 Subseq Hosp Care Lvl 1
[2021-06-27] MEDS: ATORVASTATIN 40 MG TAB PO SCH (20:26)
[2021-06-28] MEDS: ACETAMINOPHEN 325 MG TAB PO SCH ×3 (00:28→15:24)
[2021-06-28] MEDS: LEVOTHYROXINE SODIUM 137 MCG TABLET PO SCH (05:54)
[2021-06-28] MEDS: CLOPIDOGREL BISULFATE 75 MG TAB PO SCH (09:05)
[2021-06-28] MEDS: PANTOprazole 40 MG TAB PO SCH (09:05)
[2021-06-28] MEDS: ESCITALOPRAM OXALATE 10 MG TAB PO SCH (09:06)
[2021-06-28] MEDS: ISOSORBIDE MONO EXTENDED REL 30 MG TABCR PO SCH (09:06)
[2021-06-28] MEDS: amLODIPine BESYLATE 5 MG TAB PO SCH (09:06)
[2021-06-28] MEDS: LISINOPRIL/HCTZ 20/12.5MG 1 TAB TAB PO SCH (09:06)
[2021-06-28] MEDS: METOPROLOL SUCC 50MG EXT REL TAB PO SCH (09:07)
[2021-06-28] MEDS: HEPARIN SOD 5,000 UNIT/0.5 ML VIAL SQ SCH ×3 (09:08→21:29)
[2021-06-28] MEDS: LIDOCAINE 5% 1 PATCH TD SCH (09:08)
--- NOTE | 2021-06-28 09:52 | Hospitalist Progress Note ---
Date of Service June 28, 2021 Assessment & Plan (1) Fall at home: Plan: 85yo female with dementia admitted for a fall in the setting of chronic ambulatory dysfunction, found to have multiple rib fractures on arrival. Fall, ambulatory dysfunction: - Differential on admission included mechanical fall, syncope, arrhythmia, seizure - CVA unlikely given nonfocal findings - no evidence of seizure noted on exam - [place] unlikely given negative serial troponins; telemetry without evidence of arrhythmia - PT/OT ordered; CM assisting with SNF placement vs. 24 hour care (referral placed for [facility]) - placement complicated by overnight receiving Haldol Rib fractures: - Fractures noted of the right 2nd-4th ribs, secondary to traumatic fall - No flail chest or additional concerns - however multiple rib fractures in a patient above age 80 years carriers additional mortality - Pain control with APAP, lidocaine patches, oxycodone prn breakthrough pain - encouraged incentive spirometry use, q1HWA Acute Kidney Injury: - resolved, Cr returned to baseline - resume home lisinopril/HCTZ Coronary Artery Disease: - Continue home plavix, metoprolol, imdur, statin, amlodipine, lisinopril/HCTZ - Aspirin discontinued as patient is at high risk for falls to decrease bleeding risk Dementia: - Patient with severe memory issues at baseline; oriented only to person - 06/18: patient became agitated/combative overnight, attempted to bite staff - discontinued Haldol; would avoid medication if possible Asymptomatic bacteriuria: - Patient was being treated for UTI prior to admission, finished 2 days of cefdinir - However, per daughter, patient's symptoms were primarily cognitive rather than urinary; thus unlikely true UTI - No intervention indicated at this time - Patient has plans to follow up with urology Hypertension: - Continue home amlodipine, imdur, metoprolol, lisinopril/HCTZ History of CVA: - Seen by neurology after CVA in 2018 - DAPT discontinued in favor of plavix monotherapy Hypothyroidism: - Continue levothyroxine Code status: full code FEN: heart healthy diet DVT ppx: heparin sq Dispo: Med/Surg, awaiting placement in [facility] facility. Office of Aging involvement Admission and Anticipated Discharge Date Admission Date: June 18, 2021 Supervising Physician Co-Signing Physician Notes I personally examined the patient and verified all kyle points of history and exam, discussed case, and agree with decision making with Dr Thal still no new issues, still pending placement Vitals noted, in general she is resting comfortably no distress. HEENT normocephalic atraumatic mucous membranes moist. Breathing unlabored no accessory muscle use good effort. Skin shows no rashes no pallor or icterus. Neuro without focal deficits VLAD -likely was from dehydration. Follow periodically Fall - multifactorial, likely deconditioning - PT/OT - placement requested 2/2 barriers to care at home, for placement Rib fractures - no complaints of pain to me today Abnormal UA with concern for UTI - no evidence active infectious pathology. Close monitoring. CAD with NSTEMI hx, CVA in 2018 with ongoing DAPT - asymptomatic Otherwise as above Subjective No acute events overnight. Patient reports she is comfortable and pain free. She is eating and drinking well. Review of Systems Review of Systems: All systems reviewed & are unremarkable except as noted in HPI & below Physical Exam Constitutional: WD/WN, vitals as above cooperative; no acute distress Eyes: + anicteric sclerae ENMT: external ear and nose normal, oropharynx normal Neck: trachea midline; no tracheal deviation Respiratory: normal respiratory effort, lungs clear to auscultation Cardiovascular: RRR, no murmur, no edema Musculoskeletal: Head/Neck/Chest: normocephalic and head atraumatic Skin: no rashes, warm and dry Psychiatric: A+Ox3, euthymic affect Results & Data Results & Data ([facility]) Vital Signs (Past 12 Hours) Vital Signs Temp Pulse Resp BP Pulse Ox 06/28/21 06:37 36.7 C 52 L 16 145/68 H 95 06/27/21 21:56 36.4 C L 52 L 18 133/66 95 Resident Activity Tracking Resident Involvement: Resident Care Provided Care Provided: Adult Hospital Medicine (1) Fall at home Encounter type: initial encounter Qualified Code(s): W19.XXXA - Unspecified fall, initial encounter; Y92.009 - Unspecified place in unspecified non- institutional (private) residence as the place of occurrence of the external cause
--- NOTE | 2021-06-28 16:50 | Billing Data ---
Date of Service June 28, 2021 Coding Level of Care Code 86958 Subseq Hosp Care Lvl 1
[2021-06-28] MEDS: ATORVASTATIN 40 MG TAB PO SCH (20:55)
[2021-06-29] MEDS: ACETAMINOPHEN 325 MG TAB PO SCH ×4 (00:06→16:13)
[2021-06-29] MEDS: LEVOTHYROXINE SODIUM 137 MCG TABLET PO SCH (05:35)
--- NOTE | 2021-06-29 07:20 | Hospitalist Progress Note ---
Date of Service June 29, 2021 Assessment & Plan (1) Fall at home: Plan: 85yo female with dementia admitted for a fall in the setting of chronic ambulatory dysfunction, found to have multiple rib fractures on arrival. Fall, ambulatory dysfunction: - Differential on admission included mechanical fall, syncope, arrhythmia, seizure - CVA unlikely given nonfocal findings - no evidence of seizure noted on exam - [place] unlikely given negative serial troponins; telemetry without evidence of arrhythmia - PT/OT ordered; CM assisting with SNF placement vs. 24 hour care (referral placed for [facility]) - placement complicated by overnight receiving Haldol Rib fractures: - Fractures noted of the right 2nd-4th ribs, secondary to traumatic fall - No flail chest or additional concerns - however multiple rib fractures in a patient above age 80 years carriers additional mortality - Pain control with APAP, lidocaine patches, oxycodone prn breakthrough pain - encouraged incentive spirometry use, q1HWA Acute Kidney Injury: - resolved, Cr returned to baseline - resume home lisinopril/HCTZ Coronary Artery Disease: - Continue home plavix, metoprolol, imdur, statin, amlodipine, lisinopril/HCTZ - Aspirin discontinued as patient is at high risk for falls to decrease bleeding risk Dementia: - Patient with severe memory issues at baseline; oriented only to person - 06/18: patient became agitated/combative overnight, attempted to bite staff - discontinued Haldol; would avoid medication if possible Asymptomatic bacteriuria: - Patient was being treated for UTI prior to admission, finished 2 days of cefdinir - However, per daughter, patient's symptoms were primarily cognitive rather than urinary; thus unlikely true UTI - No intervention indicated at this time - Patient has plans to follow up with urology Hypertension: - Continue home amlodipine, imdur, metoprolol, lisinopril/HCTZ History of CVA: - Seen by neurology after CVA in 2018 - DAPT discontinued in favor of plavix monotherapy Hypothyroidism: - Continue levothyroxine Code status: full code FEN: heart healthy diet DVT ppx: heparin sq Dispo: Med/Surg, awaiting placement in skilled nursing care facility. Office of Aging involvement Admission and Anticipated Discharge Date Admission Date: June 18, 2021 Supervising Physician Co-Signing Physician Notes I personally examined the patient and verified all kyle points of history and exam, discussed case, and agree with decision making with Dr Thal awaiting placement. sleeping peacefully. Vitals noted, in general she is resting comfortably no distress. HEENT normocephalic atraumatic mucous membranes moist. Breathing unlabored no accessory muscle use good effort. Skin shows no rashes no pallor or icterus. Neuro without focal deficits VLAD -likely was from dehydration. Follow BMP periodically Fall - multifactorial, likely deconditioning - PT/OT - placement requested 2/2 barriers to care at home, for placement once set up Rib fractures -pain appears to be controlled Abnormal UA with concern for UTI - no evidence active infectious pathology. CAD with NSTEMI hx, CVA in 2018 with ongoing DAPT - has been asymptomatic Otherwise as above Subjective No acute events overnight. Denies any pain associated to rib fracture. Review of Systems Review of Systems: All systems reviewed & are unremarkable except as noted in HPI & below Physical Exam Constitutional: WD/WN, vitals as above cooperative; no acute distress Eyes: + anicteric sclerae ENMT: external ear and nose normal, oropharynx normal Neck: trachea midline; no tracheal deviation Respiratory: normal respiratory effort, lungs clear to auscultation Cardiovascular: RRR, no murmur, no edema Musculoskeletal: Head/Neck/Chest: normocephalic and head atraumatic Skin: no rashes, warm and dry Psychiatric: A+Ox3, euthymic affect Results & Data Results & Data ([facility]) Vital Signs (Past 12 Hours) Vital Signs Temp Pulse Resp BP Pulse Ox 06/28/21 22:51 36.8 C 70 18 106/53 L 90 Resident Activity Tracking Resident Involvement: Resident Care Provided Care Provided: Adult Hospital Medicine (1) Fall at home Encounter type: initial encounter Qualified Code(s): W19.XXXA - Unspecified fall, initial encounter; Y92.009 - Unspecified place in unspecified non- institutional (private) residence as the place of occurrence of the external cause
[2021-06-29] MEDS: amLODIPine BESYLATE 5 MG TAB PO SCH (08:53)
[2021-06-29] MEDS: ESCITALOPRAM OXALATE 10 MG TAB PO SCH (08:53)
[2021-06-29] MEDS: CLOPIDOGREL BISULFATE 75 MG TAB PO SCH (08:53)
[2021-06-29] MEDS: HEPARIN SOD 5,000 UNIT/0.5 ML VIAL SQ SCH ×2 (08:54→20:20)
[2021-06-29] MEDS: ISOSORBIDE MONO EXTENDED REL 30 MG TABCR PO SCH (08:54)
[2021-06-29] MEDS: PANTOprazole 40 MG TAB PO SCH (08:54)
[2021-06-29] MEDS: LISINOPRIL/HCTZ 20/12.5MG 1 TAB TAB PO SCH (08:54)
[2021-06-29] MEDS: METOPROLOL SUCC 50MG EXT REL TAB PO SCH (08:55)
[2021-06-29] MEDS: LIDOCAINE 5% 1 PATCH TD SCH (09:12)
[2021-06-29] MEDS ORDERED: DOCUSATE SODIUM 100 MG CAP PO ONE (11:44)
[2021-06-29] MEDS: POLYETHYLENE (MIRALAX) 17 GM PACK PO SCH (12:22)
--- NOTE | 2021-06-29 16:31 | Billing Data ---
Date of Service June 29, 2021 Coding Level of Care Code 18169 Subseq Hosp Care Lvl 1
[2021-06-29] MEDS: ATORVASTATIN 40 MG TAB PO SCH (20:20)
[2021-06-30] MEDS: ACETAMINOPHEN 325 MG TAB PO SCH ×4 (00:25→23:06)
[2021-06-30] MEDS: LEVOTHYROXINE SODIUM 137 MCG TABLET PO SCH (05:54)
--- NOTE | 2021-06-30 06:54 | Hospitalist Progress Note ---
Date of Service June 30, 2021 Assessment & Plan (1) Fall at home: Plan: 85yo female with dementia, CVA, DM, HTN admitted for a fall in the setting of chronic ambulatory dysfunction, found to have multiple rib fractures on arrival. She is awaiting placement. Chest pain: - new 06/30/21 - ecgx2 reassuring. 06/30/21 15:01. sinus 63 w/ sinus arrhythmia. Normal axis. GA borderline at 192. No ST-T changes. No significant change from 06/18/21 ecg. - ordered asa 162 chew and sublingual nitro - more likely msk etiology; reproducible, not relieved by nitro. duration is constant x over 1 hour. occurred at rest - check hs trop x3. neg x2 Fall, ambulatory dysfunction: - Differential on admission included mechanical fall, syncope, arrhythmia, seizure - CVA unlikely given nonfocal findings - no evidence of seizure noted on exam - PT/OT ordered; CM assisting with SNF placement vs. 24 hour care (referral placed for [facility]) - placement complicated by overnight receiving Haldol; last Haldol on 06/26/21 Rib fractures: - Fractures noted of the right 2nd-4th ribs, secondary to traumatic fall - No flail chest or additional concerns - however multiple rib fractures in a patient above age 80 years carriers additional mortality - Pain control with APAP, lidocaine patches, oxycodone prn breakthrough pain - encouraged incentive spirometry use, q1HWA Acute Kidney Injury: - resolved, Cr returned to baseline - resume home lisinopril/HCTZ Coronary Artery Disease: - Continue home plavix, metoprolol, imdur, statin, amlodipine, lisinopril/HCTZ - home baby ASA held to reduce bleeding risk from falls Dementia: - Patient with severe memory issues at baseline; oriented only to person - 06/18: patient became agitated/combative overnight, attempted to bite staff - discontinued Haldol; would avoid medication if possible Asymptomatic bacteriuria: - Patient was being treated for UTI prior to admission, finished 2 days of cefdinir - No intervention indicated at this time Hypertension: - Continue home amlodipine, imdur, metoprolol, lisinopril/HCTZ Diabetes - a1c 6.1 03/2020, diet controlled History of CVA: - Seen by neurology after CVA in 2018 - DAPT discontinued in favor of plavix monotherapy Hypothyroidism: - Continue levothyroxine Code status: full code FEN: heart healthy diet DVT ppx: heparin sq Dispo: Med/Surg, awaiting placement in halfway care facility. Office of Aging involvement (2) Diabetes: (3) CAD (coronary artery disease): (4) Hypertension: (5) Dementia: (6) Asymptomatic bacteriuria: (7) Chest pain: Admission and Anticipated Discharge Date Admission Date: June 18, 2021 Supervising Physician Co-Signing Physician Notes Resident Physician Supervision Note: I independently interviewed and examined the patient and verified the kyle history and physical, reviewed labs and image studies and agree with resident Dr. Pedroza findings and care plan. Subjective Patient denies any complaints. Rib fracture pain is controlled. States BMs are normal. 3pm update: notified by nurse that patient has midsternal chest pain that radia forrest towards her right ribs. Review of Systems Review of Systems: All systems reviewed & are unremarkable except as noted in HPI & below Physical Exam Physical Exam: General: Alert and oriented to person and place, but not context or time. NAD. Cooperative. Mild wincing from rib pain when turning during lung auscultation. HEENT: Atraumatic, normocephalic. EOMI Pulm: CTAB. -wheezes, -rales, -rhonchi. No respiratory distress. Cardiac: RRR. 2/6 systolic murmur. No LE edema. Abdominal: Nontender, nondistended, soft. Results & Data Results & Data ([facility]) Vital Signs (Past 12 Hours) Vital Signs Temp Pulse Resp BP BP Pulse Ox 06/30/21 03:20 36.6 C 52 L 20 122/73 93 06/29/21 22:51 36.6 C 55 L 18 140/80 94 Laboratory Results vitals reviewed. no new labs. Resident Activity Tracking Resident Involvement: Resident Care Provided Care Provided: Adult Hospital Medicine (1) Fall at home Encounter type: initial encounter Qualified Code(s): W19.XXXA - Unspecified fall, initial encounter; Y92.009 - Unspecified place in unspecified non- institutional (private) residence as the place of occurrence of the external cause (2) Dementia Dementia behavioral disturbance: without behavioral disturbance Dementia type: unspecified type Qualified Code(s): F03.90 - Unspecified dementia without behavioral disturbance (3) Hypertension Hypertension type: unspecified Qualified Code(s): I10 - Essential (primary) hypertension
[2021-06-30] MEDS: amLODIPine BESYLATE 5 MG TAB PO SCH (09:20)
[2021-06-30] MEDS: ISOSORBIDE MONO EXTENDED REL 30 MG TABCR PO SCH (09:21)
[2021-06-30] MEDS: CLOPIDOGREL BISULFATE 75 MG TAB PO SCH (09:21)
[2021-06-30] MEDS: HEPARIN SOD 5,000 UNIT/0.5 ML VIAL SQ SCH ×2 (09:21→20:15)
[2021-06-30] MEDS: ESCITALOPRAM OXALATE 10 MG TAB PO SCH (09:21)
[2021-06-30] MEDS: PANTOprazole 40 MG TAB PO SCH (09:22)
[2021-06-30] MEDS: LIDOCAINE 5% 1 PATCH TD SCH (09:22)
[2021-06-30] MEDS: LISINOPRIL/HCTZ 20/12.5MG 1 TAB TAB PO SCH (09:22)
[2021-06-30] MEDS: POLYETHYLENE (MIRALAX) 17 GM PACK PO SCH (09:22)
[2021-06-30] MEDS: METOPROLOL SUCC 50MG EXT REL TAB PO SCH (09:22)
[2021-06-30] MEDS ORDERED: ASPIRIN 81 MG CHEW PO STA (15:09)
[2021-06-30] MEDS ORDERED: NITROGLYCERIN SL 0.4 MG/TAB TAB SL STA (15:09)
[2021-06-30 16:22] LABS: Troponin I High Sensitivity 8.3 pg/ml (0-14)
[2021-06-30 16:29] LABS: BUN Creatinine Ratio 33.3 (10-20); Calcium 8.8 mg/dl (8.5-10.1); Creatinine Clr Calc Pharmacy 29.9 ml/min; Est GFR (African American) 41.1 ml/min; Est GFR (Non-African American) 35.5 ml/min; Potassium 4.9 mmol/L (3.5-5.1)
[2021-06-30] MEDS: ATORVASTATIN 40 MG TAB PO SCH (20:15)
[2021-07-01] MEDS: LEVOTHYROXINE SODIUM 137 MCG TABLET PO SCH (05:31)
--- NOTE | 2021-07-01 06:44 | Discharge Summary ---
Date of Service July 01, 2021 Admission HPI Per Admitting Provider 85yo F w/ hx of dementia who presents for fall at home and failure to thrive. The patient is a poor historian, and cannot tell me almost anything about the last few days' events. Per the daughter, she was recently treated for a UTI. The daughter reports she has a UTI "every other week" and feels this is the major cause of her cognitive and mobility issues as she feels her UTIs significantly impair both of these. As the patient is still on treatment for a UTI, the patient's daughter does not feel she is presently at baseline. The patient usually sleeps well overnight, but last night, she was up around 3:30am. The patient's daughter woke up, and noted that the patient's bedroom door was open. Because she knew she closed the door when she put her mother to bed, the daughter went in and found the patient in bed, but awake. She reminded her to stay in bed, and the daughter went to bed herself. At 5:30am, she went to check on her mother again, and found her approx. 3 feet away from the bed. She feels strongly that her mother could not have rolled out of bed into that position, and therefore, believes her mother got up from bed, attempted to walk to the bathroom, and then fell down. The patient has no recollection of any overnight events. She reports some right- sided chest wall pain, but denies any WAGGONER, vision changes, shortness of breath, chest pain, stomach pain, dysuria, bowel/bladder issues, or other concerns. Admission Exam Per Admitting Provider Constitutional: WD/WN, vitals as above Eyes: EOM intact bilaterally; no conjunctival abnormality ENMT: external ear and nose normal, oropharynx normal Neck: trachea midline, no thyromegaly normal visual inspection Respiratory: normal respiratory effort, lungs clear to auscultation no respiratory distress Cardiovascular: RRR, no murmur, no edema Chest (Breasts): Chest: + abnormal inspection of chest (Bruising on right side of chest) Gastrointestinal (Abdomen): Inspection/Auscultation: abdomen normal to inspection; abdomen not distended Musculoskeletal: no cyanosis or clubbing, extremities motor strength 5/5 Skin: no rashes, warm and dry Neurologic: moves all extremities and awake Psychiatric: Orientation: alert, oriented to person and cooperative Principal Diagnosis fall Discharge Exam Chest pain resolved yesterday. No complaints today. General: Alert and oriented to person only. NAD. Cooperative. HEENT: Atraumatic, normocephalic. EOMI Pulm: CTAB. -wheezes, -rales, -rhonchi. No respiratory distress. Cardiac: RRR. 3/6 systolic murmur. No LE edema. Msk: No sternal TTP. Abdominal: Nontender, nondistended, soft. Discharge Data Allergies Allergy/AdvReac Type Severity Reaction Status Date / Time cefpodoxime [From Vantin] Allergy Unknown Unknown Verified 06/18/21 14:46 Sulfa (Sulfonamide Allergy Unknown Unknown Verified 06/18/21 14:46 Antibiotics) Consultations 06/18/21 13:15 ED Decision to Admit Stat Ordered Studies 06/25/21 08:22 06/30/21 15:35 Cardiac Enzymes 06/30/21 06/30/21 07/01/21 Range/Units 15:35 17:56 03:47 Troponin I High Sens 8.3 D 9.2 8.3 (0-14) pg/ml Comprehensive Metabolic Panel 06/30/21 Range/Units 15:35 Sodium 140 (136-145) mmol/L Potassium 4.9 (3.5-5.1) mmol/L Chloride 107 (98-107) mmol/L Carbon Dioxide 27 (21-32) mmol/L BUN 45 H (6-23) mg/dl Creatinine 1.35 H (0.6-1.2) mg/dl Glucose 90 (70-99(Fasting)) mg/dl Calcium 8.8 (8.5-10.1) mg/dl Intake and Output 06/30/21 07/01/21 07/01/21 22:59 06:59 14:59 Intake Total 175 / 515 100 / 515 Output Total 200 / 500 Balance - 15 100 / 15 Intake: Oral 175 / 515 100 / 515 Output: Urine Amount (Catheter) 200 / 500 External 200 / 500 Other: # Unmeasured Voids 1 1 Abdomen/Pelvis CT 06/18/21 07:35 CT OF THE ABDOMEN AND PELVIS WITH CONTRAST CLINICAL HISTORY: Trauma COMPARISON STUDY: CTA of the abdomen and pelvis May 16, 2021. TECHNIQUE: Following IV administration of 95 mL of Optiray, axial images of the abdomen and pelvis were obtained from the lung bases to the proximal femurs. Images were reviewed in the axial, sagittal, and coronal planes. IV contrast was administered without complication. Automated exposure control was utilized for the study. A dose lowering technique was utilized adhering to the principles of ALARA. FINDINGS: Please note that the chest CT will be reported separately. Several acute anterior right-sided rib fractures are better depicted on that exam. There are several anterior left side rib fractures which are likely subacute. No evidence for traumatic injury to the liver, spleen, adrenal glands, kidneys or pancreas. No hemoperitoneum or pneumoperitoneum is present. Suspected cyst within the lower pole of the right kidney is noted. There is no free fluid. Caliber and wall thickness of small and large bowel are normal. No lymphaden opathy or ascites is present. No acute lumbar spine or pelvic fracture is identified. IMPRESSION: 1. No acute traumatic findings within the abdomen or pelvis. 2. Multiple acute anterior right-sided rib fractures. Several subacute anterior left-sided rib fractures. These findings are better depicted on the chest CT which will be reported separately. ACT 112: Negative or not required by law. Several Electronically signed by: Byron Gomes M.D. 06/18/2021 9:[address] 06/18/21 07:[address] DOSE: HISTORY: Trauma TECHNIQUE: Multiaxial CT images of the cervical spine were performed and reformatted in the sagittal and coronal plane without the use of contrast. A dose lowering technique was utilized adhering to the principles of ALARA. COMPARISON: None. FINDINGS: No fractures. No subluxation. Prevertebral soft tissues and the C1-C2 interval are intact. No pneumothorax. Trace left mastoid effusion. Moderate disc space narrowing from C4 through C7. IMPRESSION: No fractures within the cervical spine. ACT 112: Negative or not required by law. Electronically signed by: Iain Brewer M.D. 06/18/2021 8:[address] 06/18/21 07:[address] WITH CONTRAST CT DOSE: HISTORY: Diffuse chest pain. Trauma TECHNIQUE: Multiaxial CT images of the chest were performed following the intravenous administration of contrast. A dose lowering technique was utilized adhering to the principles of ALARA. COMPARISON: None. FINDINGS: There is an old, healed manubrial fracture. There is a healing left anterior ninth rib fracture. Multiple acute on chronic right anterior second through fourth rib fractures. No pneumothorax. No pleural effusions. The central airways are patent. Mild respiratory motion artifact. A 4 mm subpleural nodule within the left lower lobe on image 232. This may represent a small focus of atelectasis. Groundglass densities within the lung bases posteriorly are nonspecific but favor mild dependent change. There is mild interstitial thickening which is likely chronic. No mediastinal hematoma or lymphadenopathy. The heart is mildly enlarged. No pleural or pericardial effusions. Please refer to the same day abdomen and pelvis CT for further evaluation of the abdominal structures. Normal esophagus. No evidence for an aortic dissection. The main pulmonary arteries are patent. IMPRESSION: 1. Acute right anterior second through fourth rib fractures. No pneumothorax. 2. Groundglass densities at the lung bases posteriorly are nonspecific but favor mild dependent change. 3. Additional findings as described above. ACT 112: Negative or not required by law. Electronically signed by: Iain Brewer M.D. 06/18/2021 9:[address] 06/18/21 07:35 CT facial bones wo con CLINICAL HISTORY: 85 years-old Female presenting with Trauma. Acute facial trauma status post fall COMPARISON STUDY: CT head and cervical spine studies of same day TECHNIQUE: High-resolution CT scan of the facial bones is performed. Images are reviewed in the axial, sagittal, and coronal planes. IV contrast was not administered for this examination. A dose lowering technique was utilized adhering to the principles of ALARA. FINDINGS: Motion degraded exam. Age-related involutional changes with chronic microvascular ischemic disease. Embolization coils within the right sylvian fissure. Prior bilateral lens repair. Unremarkable soft tissues. Streak artifact from dental amalgam hardware. Moderate sized left mastoid effusion. The right mastoid air cells are clear. There is mild mucoperiosteal thickening of the paranasal sinuses. Prior bilateral maxillary antrostomy. Multilevel degenerative changes of the cervical spine. Numerous dental caries with prior tooth extractions. No acute facial bone fracture is identified. Surgical clips are noted within the superior right orbit. IMPRESSION: 1. No acute facial bone fracture identified. 2. Left mastoid effusion. ACT 112: Negative or not required by law. The above report was generated using voice recognition software. It may contain grammatical, syntax or spelling errors. Electronically signed by: Luis Enrique Dale M.D. 06/18/2021 8:[address] 06/18/21 07:35 CT OF THE HEAD WITHOUT CONTRAST CLINICAL HISTORY: Trauma COMPARISON STUDY: Head CT April 12, 2021. TECHNIQUE: Helical axial images of the head were obtained without IV contrast. Automated exposure control was utilized for the study. A dose lowering technique was utilized adhering to the principles of ALARA. FINDINGS: No acute intracranial hemorrhage, midline shift or mass effect is present. Mild ventricular dilatation is unchanged related to central atrophy. Basilar cisterns are patent. There are no extra-axial collections. Old infarct within the left centrum semiovale ovale is unchanged. White matter hypodensity suggests small vessel disease. No findings to suggest acute dural sinus thrombosis or acute territorial infarct. There is no acute femoral fracture. Postoperative findings within the sinuses are noted with mild sinus mucosal thickening. Trace fluid within the left mastoid air cells. Embolization coils along the right clinoid process are again noted. A radiodensity within the right orbit is unchanged. IMPRESSION: 1. No acute intracranial findings. No change in appearance of the brain. 2. No acute calvarial fracture. ACT 112: Negative or not required by law. Electronically signed by: Byron Gomes M.D. 06/18/2021 8:[address] 06/18/21 07:35 CT lumbar spine w con HISTORY: Fall. Low back pain. Trauma TECHNIQUE: Multiaxial CT images of the lumbar spine were performed following the use of intravenous contrast and reformatted in the sagittal and coronal plane. COMPARISON STUDY: None. FINDINGS: Mild dextroscoliosis. This could be positional. No fractures within the lumbar spine. There is 3 mm of anterolisthesis of L5 on S1. This is likely chronic. Moderate disc space narrowing throughout the lumbar spine with moderate facet degenerative changes. Mild to moderate central canal narrowing within the mid thoracic spine due to the degenerative change. Paravertebral soft tissues are unremarkable. IMPRESSION: No fractures within the lumbar spine. ACT 112: Negative or not required by law. Electronically signed by: Iain Brewer M.D. 06/18/2021 8:[address] 06/18/21 07:35 CT thoracic spine w con HISTORY: 85 years-old Female Trauma acute back pain status post trauma COMPARISON: CT lumbar spine of same day, CT abdomen and pelvis 05/16/2021 TECHNIQUE: Multiple axial CT images of the thoracic spine were obtained following the intravenous administration of 95 mL Optiray 320. A dose lowering technique was used consistent with the principals of TAQU[place]IA. FINDINGS: Mild to moderate multilevel disc space narrowing with associated spondylitic s purring and facet arthrosis. There is no acute fracture or subluxation identified. No endplate erosions. Degenerative changes of the imaged lower cervical spine. The imaged ribs appear intact. Evaluation of the central canal and neural foramina is better assessed by MRI. There is no high-grade central canal or foraminal narrowing identified. Tears posterior annular disc bulging noted within the lower thoracic an upper lumbar spine, largest at T12-L1 and L1- L2. No paravertebral edema. Cardiomegaly with coronary artery calcifications. Nonspecific distal esophageal wall thickening. Mild right greater than left bibasilar opacities, likely atelectatic. IMPRESSION: No acute fracture or subluxation of the thoracic spine. ACT 112: Negative or not required by law. The above report was generated using voice recognition software. It may contain grammatical, syntax or spelling errors. Electronically signed by: Luis Enrique Dale M.D. 06/18/2021 8:54 AM Hospital Course (1) Fall at home: 85yo female with dementia, CVA, DM, HTN admitted for a fall in the setting of chronic ambulatory dysfunction, found to have multiple rib fractures on arrival. She is awaiting placement. Chest pain: - new 06/30/21 - ecgx2 reassuring. 06/30/21 15:01. sinus 63 w/ sinus arrhythmia. Normal axis. [place] borderline at 192. No ST-T changes. No significant change from 06/18/21 ecg. - ordered asa 162 chew and sublingual nitro - more likely msk etiology; reproducible, not relieved by nitro. duration is constant x over 1 hour. occurred at rest - check hs trop x3. neg x2 Fall, ambulatory dysfunction: - Differential on admission included mechanical fall, syncope, arrhythmia, seizure - CVA unlikely given nonfocal findings - no evidence of seizure noted on exam - PT/OT ordered; CM assisting with SNF placement vs. 24 hour care (referral placed for [facility]) - placement complicated by overnight receiving Haldol; last Haldol on 06/26/21 Rib fractures: - Fractures noted of the right 2nd-4th ribs, secondary to traumatic fall - No flail chest or additional concerns - however multiple rib fractures in a patient above age 80 years carriers additional mortality - Pain control with APAP, lidocaine patches, oxycodone prn breakthrough pain - encouraged incentive spirometry use, q1HWA Acute Kidney Injury: - resolved, Cr returned to baseline - resume home lisinopril/HCTZ Coronary Artery Disease: - Continue home plavix, metoprolol, imdur, statin, amlodipine, lisinopril/HCTZ - home baby ASA held to reduce bleeding risk from falls Dementia: - Patient with severe memory issues at baseline; oriented only to person - 06/18: patient became agitated/combative overnight, attempted to bite staff - discontinued Haldol; would avoid medication if possible Asymptomatic bacteriuria: - Patient was being treated for UTI prior to admission, finished 2 days of cefdinir - No intervention indicated at this time Hypertension: - Continue home amlodipine, imdur, metoprolol, lisinopril/HCTZ Diabetes - a1c 6.1 03/2020, diet controlled History of CVA: - Seen by neurology after CVA in 2018 - DAPT discontinued in favor of plavix monotherapy Hypothyroidism: - Continue levothyroxine Code status: full code FEN: heart healthy diet DVT ppx: heparin sq Dispo: Med/Surg, awaiting placement in residential care facility. Office of Aging involvement (2) Diabetes: (3) CAD (coronary artery disease): (4) Hypertension: (5) Dementia: (6) Asymptomatic bacteriuria: (7) Chest pain: Total Time Total Time Spent Total Time Spent (In Minutes): <30 Discharge Plan Discharge Items Patient Disposition: Transfer Senior Living Fac Reason For Visit: FALL Discharge Diagnosis: fall Activity: Per Instructions section Non-emergency contact: Primary Care Provider Call non-emergency contact if: you have any medication questions, your symptoms worsen and you have a fever Follow-up/Referrals: Jaguar Kelly [Primary Care Provider] - Diet: Regular Pending Studies at Discharge: No Stand-Alone Forms: My [facility] [employer] Skilled Items Patient informed of condition?: Yes DNR: Yes Discharge Level of Care: Skilled Communicable Disease: No Discharge Prognosis: Stable Lines: None Medications and DC Order Prescriptions: No Action clopidogrel 75 mg Tablet 75 mg PO QAM Qty: 30 RF: 3 atorvastatin [Lipitor] 40 mg tablet 40 mg PO HS RF: 0 levothyroxine 137 mcg tablet 137 mcg PO DAILY RF: 0 nitroglycerin [Nitrostat] 0.4 mg Tablet, Sublingual 0.4 mg sublingual UD PRN (Reason: chest pain) Qty: 14 RF: 0 acetaminophen [Tylenol] 325 mg Tablet 650 mg PO QID PRN (Reason: Pain) RF: 0 pantoprazole 40 mg tablet,delayed release (DR/EC) 40 mg PO DAILY RF: 0 amlodipine 2.5 mg tablet 2.5 mg PO DAILY RF: 0 lisinopril-hydrochlorothiazide 20-12.5 mg tablet 1 tab PO DAILY RF: 0 cefdinir 300 mg capsule 300 mg PO BID RF: 0 metoprolol succinate 50 mg tablet extended release 24 hr 50 mg PO QAM RF: 0 isosorbide mononitrate 30 mg tablet extended release 24 hr 30 mg PO QAM RF: 0 aspirin 81 mg tablet,delayed release (DR/EC) 81 mg PO QAM RF: 0 escitalopram oxalate 5 mg tablet 5 mg PO DAILY RF: 0 Admission Data Admit Date/Time: 06/18/21 14:54 Attending Provider: Amie Rendon Admit Provider: Wyatt Toledo Primary Care Provider: Jaguar Kelly Other Providers: Katie Arriola ; Wyatt Toledo ; Shai Bailey Resident Activity Tracking Resident Involvement: Resident Care Provided Care Provided: Adult Hospital Medicine
[2021-07-01] MEDS: POLYETHYLENE (MIRALAX) 17 GM PACK PO SCH (08:10)
[2021-07-01] MEDS: ACETAMINOPHEN 325 MG TAB PO SCH ×2 (08:10→16:49)
[2021-07-01] MEDS: amLODIPine BESYLATE 5 MG TAB PO SCH (08:11)
[2021-07-01] MEDS: HEPARIN SOD 5,000 UNIT/0.5 ML VIAL SQ SCH ×2 (08:11→21:11)
[2021-07-01] MEDS: LIDOCAINE 5% 1 PATCH TD SCH (08:11)
[2021-07-01] MEDS: LISINOPRIL/HCTZ 20/12.5MG 1 TAB TAB PO SCH (08:12)
[2021-07-01] MEDS: ESCITALOPRAM OXALATE 10 MG TAB PO SCH (08:12)
[2021-07-01] MEDS: PANTOprazole 40 MG TAB PO SCH (08:12)
[2021-07-01] MEDS: CLOPIDOGREL BISULFATE 75 MG TAB PO SCH (08:12)
[2021-07-01] MEDS: METOPROLOL SUCC 50MG EXT REL TAB PO SCH (08:12)
[2021-07-01] MEDS: ISOSORBIDE MONO EXTENDED REL 30 MG TABCR PO SCH (08:12)
--- NOTE | 2021-07-01 11:12 | Hospitalist Progress Note ---
Date of Service July 01, 2021 Assessment & Plan (1) Fall at home: Plan: 85yo female with dementia, CVA, DM, HTN admitted for a fall in the setting of chronic ambulatory dysfunction, found to have multiple rib fractures on arrival. She is awaiting placement. Fall, ambulatory dysfunction: - Mechanical - PT/OT ordered; CM assisting with SNF placement vs. 24 hour care (referral placed for [facility]) - placement complicated by overnight receiving Haldol; last Haldol on 06/26/21 Rib fractures: - Fractures noted of the right 2nd-4th ribs, secondary to traumatic fall. No flail chest - Pain control with tylenol and lidocaine patches Chest pain, most likely musculoskeletal, resolved: - new 06/30/21. reproducible, neg ekg/troponin. Acute kidney injury - baseline ~1.0-1.17. Currently elevated to 1.35. - continue home lisinopril/HCTZ, but recheck BMP in 1 week as outpatient Coronary Artery Disease: - Continue home plavix, metoprolol, imdur, statin, amlodipine, lisinopril/HCTZ - Home baby ASA held to reduce bleeding risk from falls Dementia: - Patient with severe memory issues at baseline; oriented only to person Asymptomatic bacteriuria: - Patient was being treated for UTI prior to admission, finished 2 days of cefdinir - No intervention indicated at this time Hypertension: - Continue home amlodipine, imdur, metoprolol, lisinopril/HCTZ Diabetes - a1c 6.1 03/2020, diet controlled History of CVA: - Seen by neurology after CVA in 2018 - DAPT discontinued in favor of plavix monotherapy Hypothyroidism: - Continue levothyroxine Code status: full code FEN: heart healthy diet DVT ppx: heparin sq Dispo: Med/Surg, awaiting placement in residential care facility. Office of Aging involvement (2) Diabetes: (3) CAD (coronary artery disease): (4) Hypertension: (5) Dementia: (6) Asymptomatic bacteriuria: (7) Chest pain: Admission and Anticipated Discharge Date Admission Date: June 18, 2021 Supervising Physician Co-Signing Physician Notes Resident Physician Supervision Note: I independently interviewed and examined the patient and verified the kyle history and physical, reviewed labs and image studies and agree with resident Dr. Pedroza findings and care plan. Subjective Chest pain resolved yesterday. No complaints today. no shortness of breath. eating well Review of Systems Review of Systems: All systems reviewed & are unremarkable except as noted in HPI & below Physical Exam Physical Exam: General: Alert and oriented to person only. NAD. Cooperative. HEENT: Atraumatic, normocephalic. EOMI Pulm: CTAB. -wheezes, -rales, -rhonchi. No respiratory distress. Cardiac: RRR. 3/6 systolic murmur. No LE edema. Msk: No sternal TTP. Abdominal: Nontender, nondistended, soft. Results & Data Results & Data ([facility]) Vital Signs (Past 12 Hours) Vital Signs Temp Pulse Resp BP Pulse Ox 07/01/21 08:00 36.5 C 54 L 19 161/66 H 94 Resident Activity Tracking Resident Involvement: Resident Care Provided Care Provided: Adult Hospital Medicine (1) Fall at home Encounter type: initial encounter Qualified Code(s): W19.XXXA - Unspecified fall, initial encounter; Y92.009 - Unspecified place in unspecified non- institutional (private) residence as the place of occurrence of the external cause (2) Dementia Dementia behavioral disturbance: without behavioral disturbance Dementia type: unspecified type Qualified Code(s): F03.90 - Unspecified dementia without behavioral disturbance (3) Hypertension Hypertension type: unspecified Qualified Code(s): I10 - Essential (primary) hypertension
[2021-07-01] MEDS ORDERED: Nursing to Pharmacy Communication SCH (16:30)
[2021-07-01] MEDS: ATORVASTATIN 40 MG TAB PO SCH (20:50)
[2021-07-02] MEDS: ACETAMINOPHEN 325 MG TAB PO SCH ×3 (01:53→15:30)
[2021-07-02] MEDS: LEVOTHYROXINE SODIUM 137 MCG TABLET PO SCH (06:04)
--- NOTE | 2021-07-02 07:01 | Discharge Summary ---
Date of Service July 02, 2021 Admission HPI Per Admitting Provider 85yo F w/ hx of dementia who presents for fall at home and failure to thrive. The patient is a poor historian, and cannot tell me almost anything about the last few days' events. Per the daughter, she was recently treated for a UTI. The daughter reports she has a UTI "every other week" and feels this is the major cause of her cognitive and mobility issues as she feels her UTIs significantly impair both of these. As the patient is still on treatment for a UTI, the patient's daughter does not feel she is presently at baseline. The patient usually sleeps well overnight, but last night, she was up around 3:30am. The patient's daughter woke up, and noted that the patient's bedroom door was open. Because she knew she closed the door when she put her mother to bed, the daughter went in and found the patient in bed, but awake. She reminded her to stay in bed, and the daughter went to bed herself. At 5:30am, she went to check on her mother again, and found her approx. 3 feet away from the bed. She feels strongly that her mother could not have rolled out of bed into that position, and therefore, believes her mother got up from bed, attempted to walk to the bathroom, and then fell down. The patient has no recollection of any overnight events. She reports some right- sided chest wall pain, but denies any WAGGONER, vision changes, shortness of breath, chest pain, stomach pain, dysuria, bowel/bladder issues, or other concerns. Admission Exam Per Admitting Provider Constitutional: WD/WN, vitals as above Eyes: EOM intact bilaterally; no conjunctival abnormality ENMT: external ear and nose normal, oropharynx normal Neck: trachea midline, no thyromegaly normal visual inspection Respiratory: normal respiratory effort, lungs clear to auscultation no respiratory distress Cardiovascular: RRR, no murmur, no edema Chest (Breasts): Chest: + abnormal inspection of chest (Bruising on right side of chest) Gastrointestinal (Abdomen): Inspection/Auscultation: abdomen normal to inspection; abdomen not distended Musculoskeletal: no cyanosis or clubbing, extremities motor strength 5/5 Skin: no rashes, warm and dry Neurologic: moves all extremities and awake Psychiatric: Orientation: alert, oriented to person and cooperative Principal Diagnosis fall Discharge Exam General: Grossly A&Ox1. NAD. Cooperative. HEENT: Atraumatic, normocephalic. EOMI Pulm: CTAB. -wheezes, -rales, -rhonchi. No respiratory distress. Cardiac: RRR. 3/6 systolic murmur. No LE edema. Abdominal: Nontender, nondistended, soft. Discharge Data Allergies Allergy/AdvReac Type Severity Reaction Status Date / Time cefpodoxime [From Vantin] Allergy Unknown Unknown Verified 06/18/21 14:46 Sulfa (Sulfonamide Allergy Unknown Unknown Verified 06/18/21 14:46 Antibiotics) Consultations 06/18/21 13:15 ED Decision to Admit Stat Ordered Studies 06/25/21 08:22 06/30/21 15:35 Intake and Output 07/01/21 07/02/21 07/02/21 22:59 06:59 14:59 Intake Total 970 / 970 0 / 970 Output Total 303 / 503 200 / 503 Balance 667 / 467 -200 / 467 Intake: Oral 970 / 970 0 / 970 Output: Urine Amount (Catheter) 300 / 500 200 / 500 External 300 / 500 200 / 500 # Bowel Movements 3 / 3 Other: # Unmeasured Voids 1 Abdomen/Pelvis CT 06/18/21 07:35 CT OF THE ABDOMEN AND PELVIS WITH CONTRAST CLINICAL HISTORY: Trauma COMPARISON STUDY: CTA of the abdomen and pelvis May 16, 2021. TECHNIQUE: Following IV administration of 95 mL of Optiray, axial images of the abdomen and pelvis were obtained from the lung bases to the proximal femurs. Images were reviewed in the axial, sagittal, and coronal planes. IV contrast was administered without complication. Automated exposure control was utilized for the study. A dose lowering technique was utilized adhering to the principles of ALARA. FINDINGS: Please note that the chest CT will be reported separately. Several acute anterior right-sided rib fractures are better depicted on that exam. There are several anterior left side rib fractures which are likely subacute. No evidence for traumatic injury to the liver, spleen, adrenal glands, kidneys or pancreas. No hemoperitoneum or pneumoperitoneum is present. Suspected cyst within the lower pole of the right kidney is noted. There is no free fluid. Caliber and wall thickness of small and large bowel are normal. No lymphadenopathy or ascites is present. No acute lumbar spine or pelvic fracture is identified. IMPRESSION: 1. No acute traumatic findings within the abdomen or pelvis. 2. Multiple acute anterior right-sided rib fractures. Several subacute anterior left-sided rib fractures. These findings are better depicted on the chest CT which will be reported separately. ACT 112: Negative or not required by law. Several Electronically signed by: Byron Gomes M.D. 06/18/2021 9:[address] 06/18/21 07:[address] DOSE: HISTORY: Trauma TECHNIQUE: Multiaxial CT images of the cervical spine were performed and reforma tted in the sagittal and coronal plane without the use of contrast. A dose lowering technique was utilized adhering to the principles of ALARA. COMPARISON: None. FINDINGS: No fractures. No subluxation. Prevertebral soft tissues and the C1-C2 interval are intact. No pneumothorax. Trace left mastoid effusion. Moderate disc space narrowing from C4 through C7. IMPRESSION: No fractures within the cervical spine. ACT 112: Negative or not required by law. Electronically signed by: Iain Brewer M.D. 06/18/2021 8:[address] 06/18/21 07:[address] WITH CONTRAST CT DOSE: HISTORY: Diffuse chest pain. Trauma TECHNIQUE: Multiaxial CT images of the chest were performed following the intravenous administration of contrast. A dose lowering technique was utilized adhering to the principles of ALARA. COMPARISON: None. FINDINGS: There is an old, healed manubrial fracture. There is a healing left anterior ninth rib fracture. Multiple acute on chronic right anterior second through fourth rib fractures. No pneumothorax. No pleural effusions. The central airways are patent. Mild respiratory motion artifact. A 4 mm subpleural nodule within the left lower lobe on image 232. This may represent a small focus of atelectasis. Groundglass densities within the lung bases posteriorly are nonspecific but favor mild dependent change. There is mild interstitial thickening which is likely chronic. No mediastinal hematoma or lymphadenopathy. The heart is mildly enlarged. No pleural or pericardial effusions. Please refer to the same day abdomen and pelvis CT for further evaluation of the abdominal structures. Normal esophagus. No evidence for an aortic dissection. The main pulmonary arteries are patent. IMPRESSION: 1. Acute right anterior second through fourth rib fractures. No pneumothorax. 2. Groundglass densities at the lung bases posteriorly are nonspecific but favor mild dependent change. 3. Additional findings as described above. ACT 112: Negative or not required by law. Electronically signed by: Iain Brewer M.D. 06/18/2021 9:[address] 06/18/21 07:35 CT facial bones wo con CLINICAL HISTORY: 85 years-old Female presenting with Trauma. Acute facial trauma status post fall COMPARISON STUDY: CT head and cervical spine studies of same day TECHNIQUE: High-resolution CT scan of the facial bones is performed. Images are reviewed in the axial, sagittal, and coronal planes. IV contrast was not administered for this examination. A dose lowering technique was utilized adhering to the principles of ALARA. FINDINGS: Motion degraded exam. Age-related involutional changes with chronic microvascular ischemic disease. Embolization coils within the right sylvian fissure. Prior bilateral lens repair. Unremarkable soft tissues. Streak artifact from dental amalgam hardware. Moderate sized left mastoid effusion. The right mastoid air cells are clear. There is mild mucoperiosteal thickening of the paranasal sinuses. Prior bilateral maxillary antrostomy. Multilevel degenerative changes of the cervical spine. Numerous dental caries with prior tooth extractions. No acute facial bone fracture is identified. Surgical clips are noted within the superior right orbit. IMPRESSION: 1. No acute facial bone fracture identified. 2. Left mastoid effusion. ACT 112: Negative or not required by law. The above report was generated using voice recognition software. It may contain grammatical, syntax or spelling errors. Electronically signed by: Luis Enrique Dale M.D. 06/18/2021 8:[address] 06/18/21 07:35 CT OF THE HEAD WITHOUT CONTRAST CLINICAL HISTORY: Trauma COMPARISON STUDY: Head CT April 12, 2021. TECHNIQUE: Helical axial images of the head were obtained without IV contrast. Automated exposure control was utilized for the study. A dose lowering technique was utilized adhering to the principles of ALARA. FINDINGS: No acute intracranial hemorrhage, midline shift or mass effect is present. Mild ventricular dilatation is unchanged related to central atrophy. Basilar cisterns are patent. There are no extra-axial collections. Old infarct within the left centrum semiovale ovale is unchanged. White matter hypodensity suggests small vessel disease. No findings to suggest acute dural sinus thr ombosis or acute territorial infarct. There is no acute femoral fracture. Postoperative findings within the sinuses are noted with mild sinus mucosal thickening. Trace fluid within the left mastoid air cells. Embolization coils along the right clinoid process are again noted. A radiodensity within the right orbit is unchanged. IMPRESSION: 1. No acute intracranial findings. No change in appearance of the brain. 2. No acute calvarial fracture. ACT 112: Negative or not required by law. Electronically signed by: Byron Gomes M.D. 06/18/2021 8:[address] 06/18/21 07:35 CT lumbar spine w con HISTORY: Fall. Low back pain. Trauma TECHNIQUE: Multiaxial CT images of the lumbar spine were performed following the use of intravenous contrast and reformatted in the sagittal and coronal plane. COMPARISON STUDY: None. FINDINGS: Mild dextroscoliosis. This could be positional. No fractures within the lumbar spine. There is 3 mm of anterolisthesis of L5 on S1. This is likely chronic. Moderate disc space narrowing throughout the lumbar spine with moderate facet degenerative changes. Mild to moderate central canal narrowing within the mid thoracic spine due to the degenerative change. Paravertebral soft tissues are unremarkable. IMPRESSION: No fractures within the lumbar spine. ACT 112: Negative or not required by law. Electronically signed by: Iain Brewer M.D. 06/18/2021 8:[address] 06/18/21 07:35 CT thoracic spine w con HISTORY: 85 years-old Female Trauma acute back pain status post trauma COMPARISON: CT lumbar spine of same day, CT abdomen and pelvis 05/16/2021 TECHNIQUE: Multiple axial CT images of the thoracic spine were obtained following the intravenous administration of 95 mL Optiray 320. A dose lowering technique was used consistent with the principals of ALARA. FINDINGS: Mild to moderate multilevel disc space narrowing with associated spondylitic spurring and facet arthrosis. There is no acute fracture or subluxation identified. No endplate erosions. Degenerative changes of the imaged lower cervical spine. The imaged ribs appear intact. Evaluation of the central canal and neural foramina is better assessed by MRI. There is no high-grade central canal or foraminal narrowing identified. Tears posterior annular disc bulging n oted within the lower thoracic an upper lumbar spine, largest at T12-L1 and L1- L2. No paravertebral edema. Cardiomegaly with coronary artery calcifications. Nonspecific distal esophageal wall thickening. Mild right greater than left bibasilar opacities, likely atelectatic. IMPRESSION: No acute fracture or subluxation of the thoracic spine. ACT 112: Negative or not required by law. The above report was generated using voice recognition software. It may contain grammatical, syntax or spelling errors. Electronically signed by: Luis Enrique Dale M.D. 06/18/2021 8:54 AM Hospital Course (1) Fall at home: 85yo female with dementia, CVA, DM, HTN admitted to [facility] for a fall in the setting of chronic ambulatory dysfunction, found to have multiple rib fractures on arrival. Fall, ambulatory dysfunction: - Mechanical Rib fractures: - Fractures noted of the right 2nd-4th ribs, secondary to traumatic fall. No flail chest. - Pain control with tylenol and lidocaine patches Chest pain, musculoskeletal, resolved: - new 06/30/21. reproducible, neg ekg/troponin. Acute kidney injury - baseline ~1.0-1.17. Currently elevated to 1.35. - continue home lisinopril/HCTZ, but recheck BMP in 1 week as outpatient Coronary Artery Disease, has stents: - Continue home plavix, metoprolol, imdur, statin, amlodipine, lisinopril/HCTZ - Discontinued home baby ASA (Rx was sent to pharmacy, but please disregard). Per chart review, patient was started on this during 03/2020 admission for chest pain and plan was to dc this after confirming that patient is taking Plavix. Dementia: - Patient with severe memory issues at baseline; oriented only to person - Office of aging involved Asymptomatic bacteriuria: - Patient was being treated for UTI prior to admission, finished 2 days of cefdinir - No intervention indicated at this time Hypertension: - Continue home amlodipine, imdur, metoprolol, lisinopril/HCTZ Diabetes - a1c 6.1 03/2020, diet controlled History of CVA: - Seen by neurology after CVA in 2018 - DAPT discontinued in favor of plavix monotherapy Hypothyroidism: - Continue levothyroxine (2) Diabetes: (3) CAD (coronary artery disease): (4) Hypertension: (5) Dementia: (6) Asymptomatic bacteriuria: (7) Chest pain: Total Time Total Time Spent Total Time Spent (In Minutes): <30 Discharge Plan Discharge Items Patient Disposition: Transfer [facility] Reason For Visit: FALL Discharge Diagnosis: fall Activity: Per Instructions section Non-emergency contact: Primary Care Provider Call non-emergency contact if: you have any medication questions, your symptoms worsen and you have a fever Follow-up/Referrals: Jaguar Kelly [Primary Care Provider] - Diet: Heart Healthy Addtl Attending Provider Instructions: 85yo female with dementia, CVA, DM, HTN admitted to [facility] for a fall in the setting of chronic ambulatory dysfunction, found to have multiple rib fractures on arrival. Fall, ambulatory dysfunction: - Mechanical Rib fractures: - Fractures noted of the right 2nd-4th ribs, secondary to traumatic fall. No flail chest. - Pain control with tylenol and lidocaine patches Chest pain, most likely musculoskeletal, resolved: - new 06/30/21. reproducible, neg ekg/troponin. Acute kidney injury - baseline ~1.0-1.17. Currently elevated to 1.35. - continue home lisinopril/HCTZ, but recheck BMP in 1 week as outpatient Coronary Artery Disease, has stents: - Continue home plavix, metoprolol, imdur, statin, amlodipine, lisinopril/HCTZ - Discontinued home baby ASA (Rx was sent to pharmacy, but please disregard). Per chart review, patient was started on this during 03/2020 admission for chest pain and plan was to dc this after confirming that patient is taking Plavix. Dementia: - Patient with severe memory issues at baseline; oriented only to person - Office of aging involved Asymptomatic bacteriuria: - Patient was being treated for UTI prior to admission, finished 2 days of cefdinir - No intervention indicated at this time Hypertension: - Continue home amlodipine, imdur, metoprolol, lisinopril/HCTZ Diabetes - a1c 6.1 03/2020, diet controlled History of CVA: - Seen by neurology after CVA in 2018 - DAPT discontinued in favor of plavix monotherapy Hypothyroidism: - Continue levothyroxine Pending Studies at Discharge: No Stand-Alone Forms: My [employer] Skilled Items Patient informed of condition?: Yes DNR: Yes Discharge Level of Care: Skilled Communicable Disease: No Discharge Prognosis: Stable Lines: None Urinary Catheter: No Medications and DC Order Prescriptions: New polyethylene glycol 3350 [Miralax] 17 gram Powder In Packet 17 g PO DAILY Qty: 30 RF: 0 Continued atorvastatin [Lipitor] 40 mg tablet 40 mg PO HS Qty: 30 RF: 0 levothyroxine 137 mcg tablet 137 mcg PO DAILY Qty: 30 RF: 0 acetaminophen [Tylenol] 325 mg Tablet 650 mg PO QID PRN (Reason: Pain) Qty: 30 RF: 0 lisinopril-hydrochlorothiazide 20-12.5 mg tablet 1 tab PO DAILY 30 Days Qty: 30 RF: 3 metoprolol succinate 50 mg tablet extended release 24 hr 50 mg PO QAM 30 Days Qty: 30 RF: 0 isosorbide mononitrate 30 mg tablet extended release 24 hr 30 mg PO QAM 30 Days Qty: 30 RF: 0 amlodipine 2.5 mg tablet 2.5 mg PO DAILY Qty: 30 RF: 0 clopidogrel 75 mg Tablet 75 mg PO QAM Qty: 30 RF: 3 pantoprazole 40 mg tablet,delayed release (DR/EC) 40 mg PO DAILY Qty: 30 RF: 0 nitroglycerin [Nitrostat] 0.4 mg Tablet, Sublingual 0.4 mg sublingual UD PRN (Reason: chest pain) Qty: 14 RF: 0 escitalopram oxalate 5 mg tablet 5 mg PO DAILY Qty: 30 RF: 0 Discontinued atorvastatin [Lipitor] 40 mg tablet 40 mg PO HS RF: 0 levothyroxine 137 mcg tablet 137 mcg PO DAILY RF: 0 acetaminophen [Tylenol] 325 mg Tablet 650 mg PO QID PRN (Reason: Pain) RF: 0 pantoprazole 40 mg tablet,delayed release (DR/EC) 40 mg PO DAILY RF: 0 cefdinir 300 mg capsule 300 mg PO BID RF: 0 metoprolol succinate 50 mg tablet extended release 24 hr 50 mg PO QAM RF: 0 isosorbide mononitrate 30 mg tablet extended release 24 hr 30 mg PO QAM RF: 0 aspirin 81 mg tablet,delayed release (DR/EC) 81 mg PO QAM RF: 0 escitalopram oxalate 5 mg tablet 5 mg PO DAILY RF: 0 Discharge Orders: Discharge Order (Routine); Ordered 07/02/21 Ordered By: Vaughn Pedroza Admission Data Admit Date/Time: 06/18/21 14:54 Attending Provider: Amie Rendon Admit Provider: Wyatt Toledo Primary Care Provider: Jaguar Kelly Other Providers: Katie Arriola ; Wyatt Toledo ; Shai Bailey Other Interventions: Discharge Summary Assessment (RN) Last Done: 07/02/21 13:47 Supervising Physician Co-Signing Physician Notes Resident Physician Supervision Note: I independently interviewed and examined the patient and verified the kyle history and physical, reviewed labs and image studies and agree with resident Dr. Pedroza findings and care plan. Resident Activity Tracking Resident Involvement: Resident Care Provided Care Provided: Adult Hospital Medicine
[2021-07-02] MEDS: POLYETHYLENE (MIRALAX) 17 GM PACK PO SCH (08:12)
[2021-07-02] MEDS: LIDOCAINE 5% 1 PATCH TD SCH (08:14)
[2021-07-02] MEDS: ESCITALOPRAM OXALATE 10 MG TAB PO SCH (08:15)
[2021-07-02] MEDS: ISOSORBIDE MONO EXTENDED REL 30 MG TABCR PO SCH (08:15)
[2021-07-02] MEDS: LISINOPRIL/HCTZ 20/12.5MG 1 TAB TAB PO SCH (08:16)
[2021-07-02] MEDS: HEPARIN SOD 5,000 UNIT/0.5 ML VIAL SQ SCH (08:16)
[2021-07-02] MEDS: CLOPIDOGREL BISULFATE 75 MG TAB PO SCH (08:16)
[2021-07-02] MEDS: METOPROLOL SUCC 50MG EXT REL TAB PO SCH (08:17)
[2021-07-02] MEDS: amLODIPine BESYLATE 5 MG TAB PO SCH (08:17)
[2021-07-02] MEDS: PANTOprazole 40 MG TAB PO SCH (08:18)
--- NOTE | 2021-07-02 15:00 | Electrocardiogram Report ---
Test Reason : Blood Pressure : / mmHG Vent. Rate : 063 BPM Atrial Rate : 063 BPM P-R Int : 192 ms QRS Dur : 108 ms QT Int : 426 ms P-R-T Axes : 055 -23 017 degrees QTc Int : 435 ms Sinus rhythm with marked sinus arrhythmia Otherwise normal ECG When compared with ECG of 18-JUN-2021 10:09, NV interval has decreased Confirmed by Gabriel Mario ([id number]) on 07/02/2021 3:00:35 PM Referred By: REFERRED SELF Confirmed By:Gabriel Mario
== END 2021-07-02 19:14 | DRG 92 ==
LOC: ED 07:22 → EDINP 14:54 → INTOOBSV 14:54 → SUATTDRO 14:54 → 2W 17:36

== ENCOUNTER 2021-08-25 16:54 | Observation (INO) ==
[2021-08-25] MEDS ORDERED: OPTIRAY 320 125ml IV ONE (17:49)
--- NOTE | 2021-08-25 18:05 | CT Scan Report ---
CT SCAN OF THE BRAIN WITHOUT IV CONTRAST CLINICAL HISTORY: Strokelike symptoms. Change in mental status. COMPARISON STUDY: CT of the brain dated 06/18/2021. TECHNIQUE: Unenhanced axial CT scan of the brain is performed from the vertex to the skull base. A do se lowering technique was utilized adhering to the principles of ALARA. The examination is significan tly degraded by streak artifact from aneurysm coils. 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 There is age-related involuti onal change noting moderate to advanced subcortical and periventricular microangiopathic disease. The re is no hemorrhage, mass effect, or evidence of acute territorial ischemia by CT criteria. A chronic lacunar infarct is noted in the left melara radiata. Alvarez-white matter differentiation is preserved. No extra-axial fluid collection is seen. Ventricles, sulci, cisterns: Prominent secondary to involutional change. Intracranial vasculature: There is atherosclerotic calcification of the cavernous carotid and vertebr al arteries. Calvarium: Unremarkable. Sinuses and mastoids: There is evidence of previous paranasal sinus surgery. Mild mucosal thickening is noted in the left maxillary antrum and the ethmoid sinuses. There is a left mastoid effusion. The right mastoid air cells are well pneumatized. Orbits: The bony orbits are grossly intact. There are bilateral ocular lens implants. Surgical clips are noted in the right orbit. IMPRESSION: There is no evidence of hemorrhage, mass effect, or acute territorial ischemia by CT cr iteria. ACT 112: Negative or not required by law. Electronically signed by: Carlos Atwood M.D. 08/25/2021 6:03 PM
--- NOTE | 2021-08-25 18:19 | CT Scan Report ---
CT ANGIOGRAM OF THE BRAIN; CT ANGIOGRAM OF THE NECK CLINICAL HISTORY: Change in mental status. Stroke like symptoms. COMPARISON STUDY: CT angiogram of the head and neck dated 01/03/2018. Unenhanced CT of the brain perf ormed concurrently on 08/25/2021. TECHNIQUE: Unenhanced following the IV administration of 120 of Optiray 320, CT angiogram of the head and neck was performed from the aortic arch to the vertex. Images are reviewed in the axial, sagitta l, and coronal planes. 3-D MIPS images are created and assessed. IV contrast was administered without complication. All measurements were calculated based on NASCET criteria. A dose lowering technique was utilized adhering to the principles of ALARA. The examination is degraded by streak artifact from aneurysm coils. 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 Ther e is no evidence hemorrhage, mass effect, or acute territorial ischemia noting angiographic phase nick hnique. A chronic lacunar infarct is noted in the left melara radiata. There is no evidence of enhanc ing mass lesion on the angiogram phase images. The ventricles, sulci, and cisterns are prominent seco ndary to involutional change. Alvarez-white matter differentiation is preserved. No extra-axial fluid co llection is seen. Thoracic aorta: There is mild atherosclerotic calcification of the thoracic aorta. Visualized portion s of the thoracic aorta are normal in caliber. The aortic arch demonstrates standard 3-vessel anatomy . Right carotid arterial system: The right common carotid artery is widely patent, noting atherosclerot ic plaque and irregularity in the distal common carotid artery. Advanced is chronic plaque in the car otid bulb contributes to less than 50% luminal narrowing at the origin of the right internal carotid artery. The right internal carotid artery in the right external carotid artery are otherwise widely p atent. Left carotid arterial system: The left common carotid artery is widely patent, as are the left international bank manager al and external carotid arteries. Advanced atherosclerotic calcification is seen in the carotid bulb. Vertebral arteries: There is high-grade stenosis the origin of the left vertebral artery. The vertebr al arteries are otherwise widely patent bilaterally noting mild right-sided dominance. Subclavian arteries: Widely patent bilaterally. Intracranial vasculature: There is atherosclerotic calcification of the cavernous carotid and vertebr al arteries patchy evaluation of the right cavernous carotid artery is degraded by significant streak artifact. The internal carotid arteries at the skull base are widely patent as visualized, as are th e anterior and middle cerebral arteries bilaterally. The vertebrobasilar system and posterior cerebra l arteries are widely patent. There is a large left posterior communicating artery. The left P1 segme nt is diminutive. The right vertebral artery is dominant. Millimeters as seen on today's examination. There is no high-grade stenosis or focal vessel cut off seen throughout the intracranial circulation . Jugular veins: Patent bilaterally. Dural sinuses: Patent. Lung apices: Partially visualized upper lobe lung parenchyma appears clear. Soft tissues: The visualized pharyngeal soft tissues are normal in appearance noting angiographic pha se technique. The oropharyngeal airway appears widely patent. The salivary and thyroid glands are nor mal in appearance. No cervical lymphadenopathy is seen. Skeletal structures: The skeletal structures are osteopenic. The calvarium appears intact. The cervic al spine is maintained noting multilevel spondylosis. No lytic or blastic lesion is seen. Advanced de generative change is seen at the left sternoclavicular joint. Orbits: The bony orbits are intact. Orbital contents are normal as visualized noting bilateral ocular lens implants. Surgical clips are seen in the right orbit. Sinuses and mastoids: There is evidence of previous paranasal sinus surgery. Mild mucosal thickening is noted in the left maxillary antrum and ethmoid sinuses. There is a left mastoid effusion. The righ t mastoid air cells are well pneumatized. IMPRESSION: 1 There is no evidence of hemorrhage, mass effect, or acute territorial ischemia noting angiographic phase technique. 2. 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 3. 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 4. Atherosclerotic plaque causes less than 50% luminal narrowing at the origin of the right internal carotid artery. ACT 112: Negative or not required by law. Electronically signed by: Carlos Atwood M.D. 08/25/2021 6:17 PM
[2021-08-25 18:24] LABS: Basophils # (auto) 0.03 K/uL (0-0.2); Basophils % (auto) 0.4 %; Eosinophils # (auto) 0.52 K/uL (0-0.5); Eosinophils % (auto) 7.3 %; Hematocrit (blood only) 32.1 % (37-47); Hemoglobin 10.2 g/dL (12.0-16.0); Immature Granulocytes # (auto) 0.01 K/uL (0.00-0.02); Immature Granulocytes % (auto) 0.1 %; Lymphocytes # (auto) 1.95 K/uL (1.2-3.4); Lymphocytes % (auto) 27.3 %; Mean Corpuscular Hemoglobin 27.1 pg (25-34); Mean Corpuscular Hgb Conc 31.8 g/dL (32-36); Mean Corpuscular Volume 85.4 fL (80-100); Mean Platelet Volume 9.9 fL (7.4-10.4); Monocytes # (auto) 0.89 K/uL (0.11-0.59); Monocytes % (auto) 12.5 %; Neutrophils # (auto) 3.73 K/uL (1.4-6.5); Neutrophils % (auto) 52.4 %; Platelet Count 258 K/uL (130-400); RDW Coefficient of Variation 14.2 % (11.5-14.5); RDW Standard Deviation 44.6 fL (36.4-46.3); Red Blood Count 3.76 M/uL (4.2-5.4); White Blood Count 7.13 K/uL (4.8-10.8)
--- NOTE | 2021-08-25 18:35 | XRay Report ---
SINGLE VIEW CHEST CLINICAL HISTORY: Strokelike symptoms. FINDINGS: An AP, portable, upright chest radiograph is compared to study dated 05/05/2021 and correlate d with chest CT dated 06/18/2021. The heart is enlarged noting atherosclerotic calcification of the th oracic aorta. The pulmonary vasculature is noncongested. Chronic interstitial thickening is similar t o previous. Bibasilar opacities are noted. The lungs and pleural spaces are otherwise clear. No pneum othorax is seen. The skeletal structures are osteopenic. The bony thorax is grossly intact. Arthritic change is noted in the right shoulder. IMPRESSION: 1. Bibasilar opacities likely represent scarring/atelectasis. Clinical correlation will be required. 2. Cardiomegaly without radiographic evidence of congestive failure. ACT 112: Negative or not required by law. Electronically signed by: Carlos Atwood M.D. 08/25/2021 6:33 PM
--- NOTE | 2021-08-25 18:38 | Emergency Department Note ---
History of Present Illness General Chief complaint: Stroke/CVA Symptoms Stated complaint: SLURRED SPEECH, UTI Time Seen by Provider: 08/25/21 17:42 Source: patient and family (Daughter at bedside) History of Present Illness Provider complaint: Stroke symptoms Onset (ago): hour(s) (@1530) Associated symptoms: + weakness; no chest pain, no headaches, no nausea/vomiting or no seizure 85-year-old female presents emergency department with daughter for strokelike symptoms. Daughter reports that at 1530 after eating some [employer] she woke up in the car while taking a nap and then started having some slurred speech that was garbled. Daughter does state that it seems that the patient's symptoms including her speech have improved since arriving in the emergency department. Daughter does report that the patient has had increased confusion the last couple days and was recently on Cipro for UTI. No recent falls, no blood thinners, no fever, no headache. 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 and had a CVA in December 2017 Home Medications Medication Instructions Recorded Confirmed Type atorvastatin 40 mg tablet (Lipitor) 40 mg PO HS #30 tab 07/02/21 08/25/21 Rx clopidogrel 75 mg tablet 75 mg PO QAM #30 tab 07/02/21 08/25/21 Rx isosorbide mononitrate 30 mg 30 mg PO QAM 30 Days #30 tab 07/02/21 08/25/21 Rx tablet,extended release 24 hr nitroglycerin 0.4 mg sublingual 0.4 mg SUBLINGUAL UD PRN #14 tab 07/02/21 08/25/21 Rx tablet (Nitrostat) escitalopram oxalate 5 mg tablet 10 mg PO QAM 08/25/21 08/25/21 History levothyroxine 137 mcg tablet 137 mcg PO DAILYBB 08/25/21 08/25/21 History lisinopril 10 1 tab PO QAM 08/25/21 08/25/21 History mg-hydrochlorothiazide 12.5 mg tablet memantine 10 mg tablet 10 mg PO AMHS 08/25/21 08/25/21 History methenamine hippurate 1 gram tablet 1 g PO QAM 08/25/21 08/25/21 History metoprolol tartrate 37.5 mg tablet 37.5 mg PO QAM 08/25/21 08/25/21 History nitrofurantoin macrocrystal 50 mg 50 mg PO QAM 08/25/21 08/25/21 History capsule omeprazole 20 mg capsule,delayed 40 mg PO DAILY 08/25/21 08/25/21 History release sucralfate 1 gram tablet 1 g PO HS 08/25/21 08/25/21 History Allergies Allergy/AdvReac Type Severity Reaction Status Date / Time cefpodoxime [From Vantin] Allergy Unknown Unknown Verified 08/25/21 18:24 Sulfa (Sulfonamide Allergy Unknown Unknown Verified 08/25/21 18:24 Antibiotics) Past Med/Surg History Medical History Acute confusion Chest pain Confusion Dementia Diabetes Elevated troponin Elevated troponin History of CVA with residual deficit HTN (hypertension) Hypertension Non-ST elevation (NSTEMI) myocardial infarction Retrosternal chest pain UTI (urinary tract infection) Surgical History History of cataract surgery Family History Mother , age 69 with heart disease No problems noted. Father No problems noted. Other Family history non-contributory Social History Smoking Status: Never smoker Preferred Language: German Communication Ability: Effective Ware Tester Required: No Beliefs That Will Affect Care: None marital status: Current Living Situation: Family Current Living Situation Comment: Patient lives with her son, but her daughter and son in law also help How many Children do You have: 2 Feels Safe at Home: Yes Assistive Devices: Walker Review of Systems Unobtainable due to cognitive status Physical Exam Vital Signs Vital Signs - 24 hr 08/25/21 17:31 08/25/21 18:19 Temperature 36.7 C Temperature Source Temporal Artery Scan Pulse Rate 56 L Pulse Rate [Finger] 57 L Respiratory Rate 20 18 Respiratory Effort / Characteristics Non-Labored Respiratory Depth Normal Blood Pressure 153/71 H Blood Pressure [Left Arm] 173/66 H Blood Pressure Mean 98 Blood Pressure Mean [Left Arm] 101 Blood Pressure Position Sitting Pulse Oximetry 96 97 Oxygen Delivery Method Room Air Room Air Sepsis Recent Fever Within 48 Hours No Sepsis New/Unexplained Change in Mental Status Yes Sepsis Action Taken by Nursing No Action Required Physical Exam HENT: Exam performed. -Head: Normocephalic and atraumatic. -Right Ear: External ear normal. No mastoid tenderness. -Left Ear: External ear normal. No mastoid tenderness. -Mouth/Throat: The oropharynx is clear and moist. No trismus in the jaw. No dental abscesses or uvula swelling. No oropharyngeal exudate or tonsillar abscesses. EYES: Conjunctivae and EOM are normal. Pupils are equal, round, and reactive to light. Right eye exhibits no discharge. Left eye exhibits no discharge. No scleral icterus. NECK: Normal range of motion. Neck supple. No JVD present. No spinous process tenderness present. No carotid bruit present. No rigidity. No tracheal deviation and normal range of motion present. No Brudzinski's sign and no Kernig's sign noted. CV: Normal rate, regular rhythm, normal heart sounds and intact distal pulses. T here is no peripheral edema. Palpable radial pulses bue. PULM/CHEST: Effort normal and breath sounds normal. No respiratory distress. No stridor. She has no wheezes. She has no rales. -Chest Wall: She exhibits no tenderness. ABD: The abdomen is soft. MUSC/SKEL: Normal range of motion. There is no peripheral edema, tenderness or deformity. LYMPH: No cervical adenopathy. NEURO:NIHSS: 2 (9:1, 10:1) Course Course 1741: The patient was evaluated in room A1. A complete history and physical exam was performed Cardiac monitoring: An order was placed for continuous cardiac monitoring. The monitor shows a rate of 60 with sinus rhythm Code stroke called. 1809: Vital signs stable. CT of the head within normal limits. Discussed the case with Dr. Fransisco Nelson telestroke states given the patient's age, normal noncontrast CT, symptoms improving, low NIH stroke scale, and history of an AV fistula repair he does not recommend thrombolytics at this time. Daughter at bedside was made aware of this and she is in agreement. 1944: Vital signs stable. On reassessment the patient's dysarthria and expressive aphasia have mildly improved. Labs and imaging within normal limits. Patient will be admitted to the [facility] hospitalist team for TIA. Dr. Boothe team notified. Administered Medications Discontinued Medications Ioversol (Optiray 320 125ml) 120 ml IV ONCE ONE Stop: 08/25/21 17:50 Last Admin: 08/25/21 17:49 Dose: 120 ml Documented by: [id number] Medical Decision Making Laboratory Data Result diagrams: 08/25/21 18:07 08/25/21 18:07 Lab Results 08/25/21 08/25/21 08/25/21 Range/Units 18:07 18:07 18:07 WBC 7.13 (4.8-10.8) K/uL RBC 3.76 L (4.2-5.4) M/uL Hgb 10.2 L (12.0-16.0) g/dL Hct 32.1 L (37-47) % MCV 85.4 (80-100) fL MCH 27.1 (25-34) pg MCHC 31.8 L (32-36) g/dL RDW Std Deviation 44.6 (36.4-46.3) fL RDW Coeff of Michaela 14.2 (11.5-14.5) % Plt Count 258 (130-400) K/uL MPV 9.9 (7.4-10.4) fL Immature Gran % (Auto) 0.1 % Neut % (Auto) 52.4 % Lymph % (Auto) 27.3 % Whiteside % (Auto) 12.5 % Eos % (Auto) 7.3 % Baso % (Auto) 0.4 % Neut # (Auto) 3.73 (1.4-6.5) K/uL Lymph # (Auto) 1.95 (1.2-3.4) K/uL Whiteside # (Auto) 0.89 H (0.11-0.59) K/uL Eos # (Auto) 0.52 H (0-0.5) K/uL Baso # (Auto) 0.03 (0-0.2) K/uL Immature Gran # (Auto) 0.01 (0.00-0.02) K/uL PT 11.4 (9.0-12.0) Seconds INR 1.1 (0.9-1.1) APTT 26.2 (21.0-31.0) Seconds PTT Ratio 1.0 Sodium (136-145) mmol/L Potassium (3.5-5.1) mmol/L Chloride (98-107) mmol/L Carbon Dioxide (21-32) mmol/L Anion Gap (3-11) BUN (6-23) mg/dl Creatinine (0.6-1.2) mg/dl Est Cr Clr Drug Dosing ml/min Est GFR ( Amer) ml/min Est GFR (Non-Af Amer) ml/min BUN/Creatinine Ratio (10-20) Glucose (70-99(Fasting)) mg/dl POC Glucose (70-99) mg/dl Lactate (0.4-2.0) mmol/L Calcium (8.5-10.1) mg/dl Magnesium (1.7-2.4) mg/dl Total Bilirubin (0.2-1.0) mg/dl AST (13-39) U/L ALT (7-52) U/L Alkaline Phosphatase (34-104) U/L Troponin I High Sens (0-14) pg/ml Total Protein (6.0-8.3) gm/dl Albumin (3.4-5.0) gm/dl Globulin (2.5-4.0) gm/dl Albumin/Globulin Ratio (0.9-2) Urine Color Urine Appearance (Clear) Urine pH (4.5-7.5) Ur Specific [place] (1.000-1.030) Urine Protein (Negative) Urine Glucose (UA) (Negative) Urine Ketones (Negative) Urine Blood (Negative) Urine Nitrite (Negative) Urine Bilirubin (Negative) Urine Urobilinogen (Negative) Ur Leukocyte Esterase (Negative) Urine WBC (Auto) (0-5) /hpf Urine RBC (Auto) (0-4) /hpf U Hyaline Cast (Auto) (0-5) /lpf U Epithel Cells (Auto) (0-5) /lpf Urine Bacteria (Auto) (Negative) SARS-CoV-2, RNA, NAAT (NEGATIVE) Blood Type A Positive Antibody Screen NEGATIVE 08/25/21 08/25/21 08/25/21 Range/Units 18:07 18:07 18:17 WBC (4.8-10.8) K/uL RBC (4.2-5.4) M/uL Hgb (12.0-16.0) g/dL Hct (37-47) % MCV (80-100) fL MCH (25-34) pg MCHC (32-36) g/dL RDW Std Deviation (36.4-46.3) fL RDW Coeff of Michaela (11.5-14.5) % Plt Count (130-400) K/uL MPV (7.4-10.4) fL Immature Gran % (Auto) % Neut % (Auto) % Lymph % (Auto) % Whiteside % (Auto) % Eos % (Auto) % Baso % (Auto) % Neut # (Auto) (1.4-6.5) K/uL Lymph # (Auto) (1.2-3.4) K/uL Whiteside # (Auto) (0.11-0.59) K/uL Eos # (Auto) (0-0.5) K/uL Baso # (Auto) (0-0.2) K/uL Immature Gran # (Auto) (0.00-0.02) K/uL PT (9.0-12.0) Seconds INR (0.9-1.1) APTT (21.0-31.0) Seconds PTT Ratio Sodium 135 L (136-145) mmol/L Potassium 4.2 (3.5-5.1) mmol/L Chloride 102 (98-107) mmol/L Carbon Dioxide 29 (21-32) mmol/L Anion Gap 4 (3-11) BUN 20 (6-23) mg/dl Creatinine 1.24 H (0.6-1.2) mg/dl Est Cr Clr Drug Dosing 35.4 ml/min Est GFR ( Amer) 45.5 ml/min Est GFR (Non-Af Amer) 39.3 ml/min BUN/Creatinine Ratio 16.1 (10-20) Glucose 112 H (70-99(Fasting)) mg/dl POC Glucose (70-99) mg/dl Lactate 0.8 (0.4-2.0) mmol/L Calcium 8.6 (8.5-10.1) mg/dl Magnesium 1.7 (1.7-2.4) mg/dl Total Bilirubin 0.5 (0.2-1.0) mg/dl AST 12 L (13-39) U/L ALT 8 (7-52) U/L Alkaline Phosphatase 66 (34-104) U/L Troponin I High Sens 10.1 (0-14) pg/ml Total Protein 6.1 (6.0-8.3) gm/dl Albumin 3.5 (3.4-5.0) gm/dl Globulin 2.6 (2.5-4.0) gm/dl Albumin/Globulin Ratio 1.3 (0.9-2) Urine Color Yellow Urine Appearance Clear (Clear) Urine pH 7.0 (4.5-7.5) Ur Specific [place] 1.015 (1.000-1.030) Urine Protein 1+ H (Negative) Urine Glucose (UA) Negative (Negative) Urine Ketones Negative (Negative) Urine Blood Negative (Negative) Urine Nitrite Negative (Negative) Urine Bilirubin Negative (Negative) Urine Urobilinogen Negative (Negative) Ur Leukocyte Esterase Negative (Negative) Urine WBC (Auto) 1-5 (0-5) /hpf Urine RBC (Auto) 0-4 (0-4) /hpf U Hyaline Cast (Auto) 1-5 (0-5) /lpf U Epithel Cells (Auto) 0-5 (0-5) /lpf Urine Bacteria (Auto) Negative (Negative) SARS-CoV-2, RNA, NAAT (NEGATIVE) Blood Type Antibody Screen 08/25/21 08/25/21 Range/Units 18:21 20:04 WBC (4.8-10.8) K/uL RBC (4.2-5.4) M/uL Hgb (12.0-16.0) g/dL Hct (37-47) % MCV (80-100) fL MCH (25-34) pg MCHC (32-36) g/dL RDW Std Deviation (36.4-46.3) fL RDW Coeff of Michaela (11.5-14.5) % Plt Count (130-400) K/uL MPV (7.4-10.4) fL Immature Gran % (Auto) % Neut % (Auto) % Lymph % (Auto) % Whiteside % (Auto) % Eos % (Auto) % Baso % (Auto) % Neut # (Auto) (1.4-6.5) K/uL Lymph # (Auto) (1.2-3.4) K/uL Whiteside # (Auto) (0.11-0.59) K/uL Eos # (Auto) (0-0.5) K/uL Baso # (Auto) (0-0.2) K/uL Immature Gran # (Auto) (0.00-0.02) K/uL PT (9.0-12.0) Seconds INR (0.9-1.1) APTT (21.0-31.0) Seconds PTT Ratio Sodium (136-145) mmol/L Potassium (3.5-5.1) mmol/L Chloride (98-107) mmol/L Carbon Dioxide (21-32) mmol/L Anion Gap (3-11) BUN (6-23) mg/dl Creatinine (0.6-1.2) mg/dl Est Cr Clr Drug Dosing ml/min Est GFR ( Amer) ml/min Est GFR (Non-Af Amer) ml/min BUN/Creatinine Ratio (10-20) Glucose (70-99(Fasting)) mg/dl POC Glucose 124 H (70-99) mg/dl Lactate (0.4-2.0) mmol/L Calcium (8.5-10.1) mg/dl Magnesium (1.7-2.4) mg/dl Total Bilirubin (0.2-1.0) mg/dl AST (13-39) U/L ALT (7-52) U/L Alkaline Phosphatase (34-104) U/L Troponin I High Sens (0-14) pg/ml Total Protein (6.0-8.3) gm/dl Albumin (3.4-5.0) gm/dl Globulin (2.5-4.0) gm/dl Albumin/Globulin Ratio (0.9-2) Urine Color Urine Appearance (Clear) Urine pH (4.5-7.5) Ur Specific [place] (1.000-1.030) Urine Protein (Negative) Urine Glucose (UA) (Negative) Urine Ketones (Negative) Urine Blood (Negative) Urine Nitrite (Negative) Urine Bilirubin (Negative) Urine Urobilinogen (Negative) Ur Leukocyte Esterase (Negative) Urine WBC (Auto) (0-5) /hpf Urine RBC (Auto) (0-4) /hpf U Hyaline Cast (Auto) (0-5) /lpf U Epithel Cells (Auto) (0-5) /lpf Urine Bacteria (Auto) (Negative) SARS-CoV-2, RNA, NAAT NEGATIVE (NEGATIVE) Blood Type Antibody Screen Imaging Data Radiologist's Impression: Head CT 08/25/21 17:34 CT SCAN OF THE BRAIN WITHOUT IV CONTRAST CLINICAL HISTORY: Strokelike symptoms. Change in mental status. COMPARISON STUDY: CT of the brain dated 06/18/2021. TECHNIQUE: Unenhanced axial CT scan of the brain is performed from the vertex to the skull base. A dose lowering technique was utilized adhering to the principles of ALARA. The examination is significantly degraded by streak artifact from aneurysm coils. 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 There is age-related involutional change noting moderate to advanced subcortical and periventricular microangiopathic disease. There is no hemorrhage, mass effect, or evidence of acute territorial ischemia by CT criteria. A chronic lacunar infarct is noted in the left melara radiata. Alvarez-white matter differentiation is preserved. No extra-axial fluid collection is seen. Ventricles, sulci, cisterns: Prominent secondary to involutional change. Intracranial vasculature: There is atherosclerotic calcification of the cavernous carotid and vertebral arteries. Calvarium: Unremarkable. Sinuses and mastoids: There is evidence of previous paranasal sinus surgery. Mild mucosal thickening is noted in the left maxillary antrum and the ethmoid sinuses. There is a left mastoid effusion. The right mastoid air cells are well pneumatized. Orbits: The bony orbits are grossly intact. There are bilateral ocular lens implants. Surgical clips are noted in the right orbit. IMPRESSION: There is no evidence of hemorrhage, mass effect, or acute territorial ischemia by CT criteria. ACT 112: Negative or not required by law. Electronically signed by: Carlos Atwood M.D. 08/25/2021 6:03 PM Chest X-Ray 08/25/21 17:42 SINGLE VIEW CHEST CLINICAL HISTORY: Strokelike symptoms. FINDINGS: An AP, portable, upright chest radiograph is compared to study dated 05/05/2021 and correlated with chest CT dated 06/18/2021. The heart is enlarged noting atherosclerotic calcification of the thoracic aorta. The pulmonary vasculature is noncongested. Chronic interstitial thickening is similar to previous. Bibasilar opacities are noted. The lungs and pleural spaces are otherwise clear. No pneumothorax is seen. The skeletal structures are osteopenic. The bony thorax is grossly intact. Arthritic change is noted in the right shoulder. IMPRESSION: 1. Bibasilar opacities likely represent scarring/atelectasis. Clinical correlation will be required. 2. Cardiomegaly without radiographic evidence of congestive failure. ACT 112: Negative or not required by law. Electronically signed by: Carlos Atwood M.D. 08/25/2021 6:33 PM Head CTA 08/25/21 17:42 CT ANGIOGRAM OF THE BRAIN; CT ANGIOGRAM OF THE NECK CLINICAL HISTORY: Change in mental status. Stroke like symptoms. COMPARISON STUDY: CT angiogram of the head and neck dated 01/03/2018. Unenhanced CT of the brain performed concurrently on 08/25/2021. TECHNIQUE: Unenhanced following the IV administration of 120 of Optiray 320, CT angiogram of the head and neck was performed from the aortic arch to the vertex. Images are reviewed in the axial, sagittal, and coronal planes. 3-D MIPS images are created and assessed. IV contrast was administered without complication. All measurements were calculated based on NASCET criteria. A dose lowering technique was utilized adhering to the principles of ALARA. The examination is degraded by streak artifact from aneurysm coils. 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 There is age-related involutional change noting moderate to advanced subcortical and periventricular microangiopathic disease. There is no evidence hemorrhage, mass effect, or acute territorial ischemia noting angiographic phase technique. A chronic lacunar infarct is noted in the left melara radiata. There is no evidence of enhancing mass lesion on the angiogram phase images. The ventricles, sulci, and cisterns are prominent secondary to involutional change. Alvarez-white matter differentiation is preserved. No extra-axial fluid collection is seen. Thoracic aorta: There is mild atherosclerotic calcification of the thoracic aorta. Visualized portions of the thoracic aorta are normal in caliber. The aortic arch demonstrates standard 3-vessel anatomy. Right carotid arterial system: The right common carotid artery is widely patent, noting atherosclerotic plaque and irregularity in the distal common carotid artery. Advanced is chronic plaque in the carotid bulb contributes to less than 50% luminal narrowing at the origin of the right internal carotid artery. The right internal carotid artery in the right external carotid artery are otherwise widely patent. Left carotid arterial system: The left common carotid artery is widely patent, as are the left internal and external carotid arteries. Advanced atherosclerotic calcification is seen in the carotid bulb. Vertebral arteries: There is high-grade stenosis the origin of the left vertebral artery. The vertebral arteries are otherwise widely patent bilaterally noting mild right-sided dominance. Subclavian arteries: Widely patent bilaterally. Intracranial vasculature: There is atherosclerotic calcification of the cavernous carotid and vertebral arteries patchy evaluation of the right cavernous carotid artery is degraded by significant streak artifact. The inte rnal carotid arteries at the skull base are widely patent as visualized, as are the anterior and middle cerebral arteries bilaterally. The vertebrobasilar system and posterior cerebral arteries are widely patent. There is a large left posterior communicating artery. The left P1 segment is diminutive. The right vertebral artery is dominant. Millimeters as seen on today's examination. There is no high-grade stenosis or focal vessel cut off seen throughout the intracranial circulation. Jugular veins: Patent bilaterally. Dural sinuses: Patent. Lung apices: Partially visualized upper lobe lung parenchyma appears clear. Soft tissues: The visualized pharyngeal soft tissues are normal in appearance noting angiographic phase technique. The oropharyngeal airway appears widely patent. The salivary and thyroid glands are normal in appearance. No cervical lymphadenopathy is seen. Skeletal structures: The skeletal structures are osteopenic. The calvarium appears intact. The cervical spine is maintained noting multilevel spondylosis. No lytic or blastic lesion is seen. Advanced degenerative change is seen at the left sternoclavicular joint. Orbits: The bony orbits are intact. Orbital contents are normal as visualized noting bilateral ocular lens implants. Surgical clips are seen in the right orbit. Sinuses and mastoids: There is evidence of previous paranasal sinus surgery. Mild mucosal thickening is noted in the left maxillary antrum and ethmoid sinuses. There is a left mastoid effusion. The right mastoid air cells are well pneumatized. IMPRESSION: 1 There is no evidence of hemorrhage, mass effect, or acute territorial ischemia noting angiographic phase technique. 2. 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 3. 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 4. Atherosclerotic plaque causes less than 50% luminal narrowing at the origin of the right internal carotid artery. ACT 112: Negative or not required by law. Electronically signed by: Carlos Atwood M.D. 08/25/2021 6:17 PM Neck CTA 08/25/21 17:42 CT ANGIOGRAM OF THE BRAIN; CT ANGIOGRAM OF THE NECK CLINICAL HISTORY: Change in mental status. Stroke like symptoms. COMPARISON STUDY: CT angiogram of the head and neck dated 01/03/2018. Unenhanced CT of the brain performed concurrently on 08/25/2021. TECHNIQUE: Unenhanced following the IV administration of 120 of Optiray 320, CT angiogram of the head and neck was performed from the aortic arch to the vertex. Images are reviewed in the axial, sagittal, and coronal planes. 3-D MIPS images are created and assessed. IV contrast was administered without complication. All measurements were calculated based on NASCET criteria. A dose lowering technique was utilized adhering to the principles of ALARA. The examination is degraded by streak artifact from aneurysm coils. 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 There is age-related involutional change noting moderate to advanced subcortical and periventricular microangiopathic disease. There is no evidence hemorrhage, mass effect, or acute territorial ischemia noting angiographic phase technique. A ch ronic lacunar infarct is noted in the left melara radiata. There is no evidence of enhancing mass lesion on the angiogram phase images. The ventricles, sulci, and cisterns are prominent secondary to involutional change. Alvarez-white matter differentiation is preserved. No extra-axial fluid collection is seen. Thoracic aorta: There is mild atherosclerotic calcification of the thoracic aorta. Visualized portions of the thoracic aorta are normal in caliber. The aortic arch demonstrates standard 3-vessel anatomy. Right carotid arterial system: The right common carotid artery is widely patent, noting atherosclerotic plaque and irregularity in the distal common carotid artery. Advanced is chronic plaque in the carotid bulb contributes to less than 50% luminal narrowing at the origin of the right internal carotid artery. The right internal carotid artery in the right external carotid artery are otherwise widely patent. Left carotid arterial system: The left common carotid artery is widely patent, as are the left internal and external carotid arteries. Advanced atherosclerotic calcification is seen in the carotid bulb. Vertebral arteries: There is high-grade stenosis the origin of the left vertebral artery. The vertebral arteries are otherwise widely patent bilaterally noting mild right-sided dominance. Subclavian arteries: Widely patent bilaterally. Intracranial vasculature: There is atherosclerotic calcification of the cavernous carotid and vertebral arteries patchy evaluation of the right cavernous carotid artery is degraded by significant streak artifact. The internal carotid arteries at the skull base are widely patent as visualized, as are the anterior and middle cerebral arteries bilaterally. The vertebrobasilar system and posterior cerebral arteries are widely patent. There is a large left posterior communicating artery. The left P1 segment is diminutive. The right vertebral artery is dominant. Millimeters as seen on today's examination. There is no high-grade stenosis or focal vessel cut off seen throughout the intracranial circulation. Jugular veins: Patent bilaterally. Dural sinuses: Patent. Lung apices: Partially visualized upper lobe lung parenchyma appears clear. Soft tissues: The visualized pharyngeal soft tissues are normal in appearance noting angiographic phase technique. The oropharyngeal airway appears widely patent. The salivary and thyroid glands are normal in appearance. No cervical l ymphadenopathy is seen. Skeletal structures: The skeletal structures are osteopenic. The calvarium appears intact. The cervical spine is maintained noting multilevel spondylosis. No lytic or blastic lesion is seen. Advanced degenerative change is seen at the left sternoclavicular joint. Orbits: The bony orbits are intact. Orbital contents are normal as visualized noting bilateral ocular lens implants. Surgical clips are seen in the right orbit. Sinuses and mastoids: There is evidence of previous paranasal sinus surgery. Mild mucosal thickening is noted in the left maxillary antrum and ethmoid sinuses. There is a left mastoid effusion. The right mastoid air cells are well pneumatized. IMPRESSION: 1 There is no evidence of hemorrhage, mass effect, or acute territorial ischemia noting angiographic phase technique. 2. 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 3. 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 4. Atherosclerotic plaque causes less than 50% luminal narrowing at the origin of the right internal carotid artery. ACT 112: Negative or not required by law. Electronically signed by: Carlos Atwood M.D. 08/25/2021 6:17 PM ECG Data Indication: + weakness Rate (beats per minute): 61 Rhythm: + normal sinus ECG Intervals/blocks: + Normal QRS, + Normal AK and + Normal QT-c ECG ST segments: + Normal ST segments MDM Narrative 1742: The patient was evaluated in room A1. A complete history and physical exam was performed Cardiac monitoring: An order was placed for continuous cardiac monitoring. The monitor shows a rate of 60 with sinus rhythm Code stroke called. 1809: Vital signs stable. CT of the head within normal limits. Discussed the case with Dr. Fransisco Nelson telestroke states given the patient's age, normal noncontrast CT, symptoms improving, low NIH stroke scale, and history of an AV fistula repair he does not recommend thrombolytics at this time. Daughter at bedside was made aware of this and she is in agreement. 1944: Vital signs stable. On reassessment the patient's dysarthria and e xpressive aphasia have mildly improved. Labs and imaging within normal limits. Patient will be admitted to the [facility] hospitalist team for TIA. Dr. Boothe team notified. Impression & Plan TIA (transient ischemic attack) Discharge Plan Visit Data Chief Complaint: Stroke/CVA Symptoms Stated Complaint: SLURRED SPEECH, UTI ED Provider: Tomas Gold Discharge Problem: TIA (transient ischemic attack) Patient Disposition: Being Evaluated by Hospitalist Forms Stand Alone Forms: [facility] Prescriptions Prescriptions: No Action atorvastatin [Lipitor] 40 mg tablet 40 mg PO HS Qty: 30 RF: 0 isosorbide mononitrate 30 mg tablet extended release 24 hr 30 mg PO QAM 30 Days Qty: 30 RF: 0 clopidogrel 75 mg Tablet 75 mg PO QAM Qty: 30 RF: 3 nitroglycerin [Nitrostat] 0.4 mg Tablet, Sublingual 0.4 mg sublingual UD PRN (Reason: chest pain) Qty: 14 RF: 0 sucralfate 1 gram tablet 1 g PO HS RF: 0 lisinopril-hydrochlorothiazide 10-12.5 mg tablet 1 tab PO QAM RF: 0 omeprazole 20 mg capsule,delayed release(DR/EC) 40 mg PO DAILY RF: 0 memantine 10 mg tablet 10 mg PO AMHS RF: 0 methenamine hippurate 1 gram tablet 1 g PO QAM RF: 0 metoprolol tartrate 37.5 mg tablet 37.5 mg PO QAM RF: 0 escitalopram oxalate 5 mg tablet 10 mg PO QAM RF: 0 nitrofurantoin macrocrystal 50 mg capsule 50 mg PO QAM RF: 0 levothyroxine 137 mcg tablet 137 mcg PO DAILYBB RF: 0 Referrals Referrals: Jaguar Kelly [Primary Care Provider] -
[2021-08-25 19:02] LABS: Appearance Urine Clear (Clear); Bacteria Urine Automated Negative (Negative); Bilirubin Urine Negative (Negative); Blood Urine Negative (Negative); Color Urine Yellow; Epithelial Cell Urine Auto 0-5 /lpf (0-5); Glucose Urine UA Negative (Negative); Ketones Urine Negative (Negative); Leukocyte Esterase Urine Negative (Negative); Nitrite Urine Negative (Negative); Protein Urine 1+ (Negative); RBC Urine Automated 0-4 /hpf (0-4); Specific Gravity Urine 1.015 (1.000-1.030); Urobilinogen Urine Negative (Negative)
[2021-08-25 19:07] LABS: Troponin I High Sensitivity 10.1 pg/ml (0-14)
[2021-08-25 19:14] LABS: Potassium 4.2 mmol/L (3.5-5.1)
[2021-08-25 19:15] LABS: Albumin Globulin Ratio 1.3 (0.9-2); Albumin Level 3.5 gm/dl (3.4-5.0); BUN Creatinine Ratio 16.1 (10-20); Bilirubin,Total 0.5 mg/dl (0.2-1.0); Calcium 8.6 mg/dl (8.5-10.1); Creatinine Clr Calc Pharmacy 35.4 ml/min; Est GFR (African American) 45.5 ml/min; Est GFR (Non-African American) 39.3 ml/min; Globulin 2.6 gm/dl (2.5-4.0); Magnesium 1.7 mg/dl (1.7-2.4); Total Protein 6.1 gm/dl (6.0-8.3)
[2021-08-25 19:17] LABS: INR 1.1 (0.9-1.1); Partial Thromboplastin Time 26.2 Seconds (21.0-31.0); Prothrombin Time 11.4 Seconds (9.0-12.0)
--- NOTE | 2021-08-25 21:36 | History & Physical Report ---
Date of Service August 25, 2021 Assessment & Plan (1) TIA (transient ischemic attack): Plan: onset of difficulty reading road signs, and memory difficulty with her name - TIA vs. TGA - CTA head and neck as above - chronic vertebral artery stenosis - Restart DAPT with asa and plavix - continue with statin - lipid panel in Am- adjust therapy as warranted - HGB A1 c in am- hx of DM on chart on no medications at home - ECHO with bubble study - Telemetry overnight - Passed bedside swallow - allow permissive HTN overnight - Consider obtaining documentation from [facility] in regards to coil- MRI if able to obtain and verify implant - Nueroexam q4 hour (2) Recurrent UTI (urinary tract infection): Plan: UA negative in EMD- will obtain culture - continue suppressive therapy (3) History of CVA with residual deficit: Plan: CVA 2018 presumed left middle cerebral artery - as above - ASA, Plavix, Statin - BP medications likely be added back in am (4) CAD (coronary artery disease): Plan: Non obstructive from cath in 03/21 - thought possibly to vasospasm - continue imdur - other disease modiying medications as above (5) Hypertension: Plan: As above (6) Ambulatory dysfunction: Plan: PT/OT consultation - OOB with assistance to chair - High fall risk (7) Dementia: Plan: Chronic no acute change (8) Hypomagnesemia: Plan: Mag 1.7- replete with 2 gm IV History of Present Illness Primary Care Provider: Jaguar Kelly 85 YOF with medical history of: Ambulatory dysfunction, dementia, chronic UTI, HTN, CAD, CVA (2018), DMII, 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 Patient comes to the EMD today by her daughter for concerns of change in speech which included her not being able to recall her middle or last name, reading signs as "jibberish", and sleepiness. This occurred today at approximately 1500, while the patient was in the car with her daughter eating chicken nuggets on their way home from dental appointment. The patient had evaluation at dentist today for bridge and teeth repair- she did not receive any sedation medications. The daughter states that this lasted until around 16:15 which spontaneously resolved. In the EMD the patient had routine blood work completed, CXR of the chest, CT of the head without contrast, CTA of the head and neck performed. These were all negative. Patient's glucose was normal. Repeat of her UA was negative. She was recently treated with Ciprofloxacin for UTI at beginning of July, she was then placed on methenamine and nitrofurantoin by Urology for prophylaxis. Patient is pleasantly demented, and with NIHSS of 0 currently. Daughter reports that she had an ECHO done within the past 2 days and recently followed up with Neurologist- Dr. Fitzgerald ([facility]) this week. Patient was previously admitted in June following fall with rib fractures in the setting of UTI. She was previously on DAPT following cath in 03/21 where nonobstructive CAD was noted, however her ASA was discontinued during that admission. Patient will be admitted to medical telemetry for TIA workup. She has not previously had an MRI secondary to her coil in her cavernous carotid artery- as she has no documentation of what material this is, although previous documentation from others states shinnecock, but this is without further identifiable data to confirm. [email or web address] Allergies Allergy/AdvReac Type Severity Reaction Status Date / Time cefpodoxime [From Vantin] Allergy Unknown Unknown Verified 08/25/21 18:24 Sulfa (Sulfonamide Allergy Unknown Unknown Verified 08/25/21 18:24 Antibiotics) Home Medications Medication Instructions Recorded Confirmed Type atorvastatin 40 mg tablet (Lipitor) 40 mg PO HS #30 tab 07/02/21 08/25/21 Rx clopidogrel 75 mg tablet 75 mg PO QAM #30 tab 07/02/21 08/25/21 Rx isosorbide mononitrate 30 mg 30 mg PO QAM 30 Days #30 tab 07/02/21 08/25/21 Rx tablet,extended release 24 hr nitroglycerin 0.4 mg sublingual 0.4 mg SUBLINGUAL UD PRN #14 tab 07/02/21 08/25/21 Rx tablet (Nitrostat) escitalopram oxalate 5 mg tablet 10 mg PO QAM 08/25/21 08/25/21 History levothyroxine 137 mcg tablet 137 mcg PO DAILYBB 08/25/21 08/25/21 History lisinopril 10 1 tab PO QAM 08/25/21 08/25/21 History mg-hydrochlorothiazide 12.5 mg tablet memantine 10 mg tablet 10 mg PO AMHS 08/25/21 08/25/21 History methenamine hippurate 1 gram tablet 1 g PO QAM 08/25/21 08/25/21 History metoprolol tartrate 37.5 mg tablet 37.5 mg PO QAM 08/25/21 08/25/21 History nitrofurantoin macrocrystal 50 mg 50 mg PO QAM 08/25/21 08/25/21 History capsule omeprazole 20 mg capsule,delayed 40 mg PO DAILY 08/25/21 08/25/21 History release sucralfate 1 gram tablet 1 g PO HS 08/25/21 08/25/21 History aspirin 81 mg tablet,delayed 81 mg PO DAILY #1 tab 08/26/21 Rx release Past Med/Surg History Medical History Acute confusion Chest pain Confusion Dementia Diabetes Elevated troponin Elevated troponin History of CVA with residual deficit HTN (hypertension) Hypertension Non-ST elevation (NSTEMI) myocardial infarction Retrosternal chest pain UTI (urinary tract infection) Surgical History History of cataract surgery Family History Mother , age 69 with heart disease No problems noted. Father No problems noted. 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 Required: No Beliefs That Will Affect Care: None marital status: / Current Living Situation: Family Current Living Situation Comment: Patient lives with her son, but her daughter and son in law also help How many Children do You have: 2 Feels Safe at Home: Yes Assistive Devices: Walker and Wheelchair Review of Systems Review of Systems: REVIEW OF SYSTEMS: - unable to obtain secondary to dementia - but daughter states she has been doing well since her discharge and completion of abx for her UTI Physical Exam Physical Exam: PHYSICAL EXAM: General: awake, alert, no apparent distress, calm cooperative, poor memory recall of any events of today or yesterday Head: Normocephalic, atraumatic ENT: DANNIELLE EOMI, no pharyngeal exudate, mucous membranes moist Neuro: AAO x 3, speech clear and appropriate, strength intact bilaterally 5/5, sensation intact and equal all extremities and dermatomes, no pronator drift, no facial droop Chest: equal rise and fall of the chest, no accessory muscle use, no heaves or thrills, Clear to auscultation, on room air, Cardiac: Regular rate and rhythm, telemetry reviewed- NSR, skin warm dry, cap refill <3 seconds, peripheral pulses +2 no JVD, no murmur, no edema GI: NABS x 4 quadrants, soft, nontender to palpation, no rebound, guarding or tenderness : Spontaneously voiding, no pain, no CVA tenderness, Extremities: Normal inspection, no peripheral edema or erythema, calfs nontender to palpation Psych: Normal mood and affect Skin: no rash or erythema Results & Data Results & Data ([facility]) Vital Signs (Past 12 Hours) Vital Signs Temp Pulse Pulse Resp BP BP Pulse Ox 08/25/21 18:19 57 L 18 173/66 H 97 08/25/21 17:31 36.7 C 56 L 20 153/71 H 96 Laboratory Results Abnormal lab results 08/25/21 08/25/21 08/25/21 Range/Units 18:07 18:07 18:17 RBC 3.76 L (4.2-5.4) M/uL Hgb 10.2 L (12.0-16.0) g/dL Hct 32.1 L (37-47) % MCHC 31.8 L (32-36) g/dL [place] # (Auto) 0.89 H (0.11-0.59) K/uL Eos # (Auto) 0.52 H (0-0.5) K/uL Sodium 135 L (136-145) mmol/L Creatinine 1.24 H (0.6-1.2) mg/dl Glucose 112 H (70-99(Fasting)) mg/dl POC Glucose (70-99) mg/dl AST 12 L (13-39) U/L Urine Protein 1+ H (Negative) 08/25/21 Range/Units 18:21 RBC (4.2-5.4) M/uL Hgb (12.0-16.0) g/dL Hct (37-47) % MCHC (32-36) g/dL [place] # (Auto) (0.11-0.59) K/uL Eos # (Auto) (0-0.5) K/uL Sodium (136-145) mmol/L Creatinine (0.6-1.2) mg/dl Glucose (70-99(Fasting)) mg/dl POC Glucose 124 H (70-99) mg/dl AST (13-39) U/L Urine Protein (Negative) Diagnostic Findings Head CT 08/25/21 17:34 CT SCAN OF THE BRAIN WITHOUT IV CONTRAST CLINICAL HISTORY: Strokelike symptoms. Change in mental status. COMPARISON STUDY: CT of the brain dated 06/18/2021. TECHNIQUE: Unenhanced axial CT scan of the brain is performed from the vertex to the skull base. A dose lowering technique was utilized adhering to the principles of ALARA. The examination is significantly degraded by streak artifact from aneurysm coils. 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 There is age-related involutional change noting moderate to advanced subcortical and periventricular microangiopathic disease. There is no hemorrhage, mass effect, or evidence of acute territorial ischemia by CT criteria. A chronic lacunar infarct is noted in the left melara radiata. Alvarez-white matter differentiation is preserved. No extra-axial fluid collection is seen. Ventricles, sulci, cisterns: Prominent secondary to involutional change. Intracranial vasculature: There is atherosclerotic calcification of the cavernous carotid and vertebral arteries. Calvarium: Unremarkable. Sinuses and mastoids: There is evidence of previous paranasal sinus surgery. Mild mucosal thickening is noted in the left maxillary antrum and the ethmoid sinuses. There is a left mastoid effusion. The right mastoid air cells are well pneumatized. Orbits: The bony orbits are grossly intact. There are bilateral ocular lens implants. Surgical clips are noted in the right orbit. IMPRESSION: There is no evidence of hemorrhage, mass effect, or acute territorial ischemia by CT criteria. ACT 112: Negative or not required by law. Electronically signed by: Carlos Atwood M.D. 08/25/2021 6:03 PM Chest X-Ray 08/25/21 17:42 SINGLE VIEW CHEST CLINICAL HISTORY: Strokelike symptoms. FINDINGS: An AP, portable, upright chest radiograph is compared to study dated 05/05/2021 and correlated with chest CT dated 06/18/2021. The heart is enlarged noting atherosclerotic calcification of the thoracic aorta. The pulmonary vasculature is noncongested. Chronic interstitial thickening is similar to previous. Bibasilar opacities are noted. The lungs and pleural spaces are otherwise clear. No pneumothorax is seen. The skeletal structures are osteopenic. The bony thorax is grossly intact. Arthritic change is noted in the right shoulder. IMPRESSION: 1. Bibasilar opacities likely represent scarring/atelectasis. Clinical correlation will be required. 2. Cardiomegaly without radiographic evidence of congestive failure. ACT 112: Negative or not required by law. Electronically signed by: Carlos Atwood M.D. 08/25/2021 6:33 PM Head CTA 08/25/21 17:42 CT ANGIOGRAM OF THE BRAIN; CT ANGIOGRAM OF THE NECK CLINICAL HISTORY: Change in mental status. Stroke like symptoms. COMPARISON STUDY: CT angiogram of the head and neck dated 01/03/2018. Unenhanced CT of the brain performed concurrently on 08/25/2021. TECHNIQUE: Unenhanced following the IV administration of 120 of Optiray 320, CT angiogram of the head and neck was performed from the aortic arch to the vertex. Images are reviewed in the axial, sagittal, and coronal planes. 3-D MIPS images are created and assessed. IV contrast was administered without complication. All measurements were calculated based on NASCET criteria. A dose lowering technique was utilized adhering to the principles of ALARA. The examination is degraded by streak artifact from aneurysm coils. 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 There is age-related involutional change noting moderate to advanced subcortical and periventricular microangiopathic disease. There is no evidence hemorrhage, mass effect, or acute territorial ischemia noting angiographic phase technique. A chronic lacunar infarct is noted in the left melara radiata. There is no evidence of enhancing mass lesion on the angiogram phase images. The ventricles, sulci, and cisterns are prominent secondary to involutional change. Alvarez-white matter differentiation is preserved. No extra-axial fluid collection is seen. Thoracic aorta: There is mild atherosclerotic calcification of the thoracic aorta. Visualized portions of the thoracic aorta are normal in caliber. The aortic arch demonstrates standard 3-vessel anatomy. Right carotid arterial system: The right common carotid artery is widely patent, noting atherosclerotic plaque and irregularity in the distal common carotid artery. Advanced is chronic plaque in the carotid bulb contributes to less than 50% luminal narrowing at the origin of the right internal carotid artery. The right internal carotid artery in the right external carotid artery are otherwise widely patent. Left carotid arterial system: The left common carotid artery is widely patent, as are the left internal and external carotid arteries. Advanced atherosclerotic calcification is seen in the carotid bulb. Vertebral arteries: There is high-grade stenosis the origin of the left vertebral artery. The vertebral arteries are otherwise widely patent bilaterally noting mild right-sided dominance. Subclavian arteries: Widely patent bilaterally. Intracranial vasculature: There is atherosclerotic calcification of the cavernous carotid and vertebral arteries patchy evaluation of the right cavernous carotid artery is degraded by significant streak artifact. The internal carotid arteries at the skull base are widely patent as visualized, as are the anterior and middle cerebral arteries bilaterally. The vertebrobasilar system and posterior cerebral arteries are widely patent. There is a large left posterior communicating artery. The left P1 segment is diminutive. The right vertebral artery is dominant. Millimeters as seen on today's examination. There is no high-grade stenosis or focal vessel cut off seen throughout the intracranial circulation. Jugular veins: Patent bilaterally. Dural sinuses: Patent. Lung apices: Partially visualized upper lobe lung parenchyma appears clear. Soft tissues: The visualized pharyngeal soft tissues are normal in appearance noting angiographic phase technique. The oropharyngeal airway appears widely patent. The salivary and thyroid glands are normal in appearance. No cervical lymphadenopathy is seen. Skeletal structures: The skeletal structures are osteopenic. The calvarium appears intact. The cervical spine is maintained noting multilevel spondylosis. No lytic or blastic lesion is seen. Advanced degenerative change is seen at the left sternoclavicular joint. Orbits: The bony orbits are intact. Orbital contents are normal as visualized noting bilateral ocular lens implants. Surgical clips are seen in the right orbit. Sinuses and mastoids: There is evidence of previous paranasal sinus surgery. Mild mucosal thickening is noted in the left maxillary antrum and ethmoid sinuses. There is a left mastoid effusion. The right mastoid air cells are well pneumatized. IMPRESSION: 1 There is no evidence of hemorrhage, mass effect, or acute territorial ischemia noting angiographic phase technique. 2. 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 3. 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 4. Atherosclerotic plaque causes less than 50% luminal narrowing at the origin of the right internal carotid artery. ACT 112: Negative or not required by law. Electronically signed by: Carlos Atwood M.D. 08/25/2021 6:17 PM Neck CTA 08/25/21 17:42 CT ANGIOGRAM OF THE BRAIN; CT ANGIOGRAM OF THE NECK CLINICAL HISTORY: Change in mental status. Stroke like symptoms. COMPARISON STUDY: CT angiogram of the head and neck dated 01/03/2018. Unenhanced CT of the brain performed concurrently on 08/25/2021. TECHNIQUE: Unenhanced following the IV administration of 120 of Optiray 320, CT angiogram of the head and neck was performed from the aortic arch to the vertex. Images are reviewed in the axial, sagittal, and coronal planes. 3-D MIPS images are created and assessed. IV contrast was administered without complication. All measurements were calculated based on NASCET criteria. A dose lowering technique was utilized adhering to the principles of ALARA. The examination is degraded by streak artifact from aneurysm coils. 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 There is age-related involutional change noting moderate to advanced subcortical and periventricular microangiopathic disease. There is no evidence hemorrhage, mass effect, or acute territorial ischemia noting angiographic phase technique. A chronic lacunar infarct is noted in the left melara radiata. There is no evidence of enhancing mass lesion on the angiogram phase images. The ventricles, sulci, and cisterns are prominent secondary to involutional change. Alvarez-white matter differentiation is preserved. No extra-axial fluid collection is seen. Thoracic aorta: There is mild atherosclerotic calcification of the thoracic aorta. Visualized portions of the thoracic aorta are normal in caliber. The aortic arch demonstrates standard 3-vessel anatomy. Right carotid arterial system: The right common carotid artery is widely patent, noting atherosclerotic plaque and irregularity in the distal common carotid artery. Advanced is chronic plaque in the carotid bulb contributes to less than 50% luminal narrowing at the origin of the right internal carotid artery. The right internal carotid artery in the right external carotid artery are otherwise widely patent. Left carotid arterial system: The left common carotid artery is widely patent, as are the left internal and external carotid arteries. Advanced atherosclerotic calcification is seen in the carotid bulb. Vertebral arteries: There is high-grade stenosis the origin of the left vertebral artery. The vertebral arteries are otherwise widely patent bilaterally noting mild right-sided dominance. Subclavian arteries: Widely patent bilaterally. Intracranial vasculature: There is atherosclerotic calcification of the cavernous carotid and vertebral arteries patchy evaluation of the right cavernous carotid artery is degraded by significant streak artifact. The internal carotid arteries at the skull base are widely patent as visualized, as are the anterior and middle cerebral arteries bilaterally. The vertebrobasilar system and posterior cerebral arteries are widely patent. There is a large left posterior communicating artery. The left P1 segment is diminutive. The right vertebral artery is dominant. Millimeters as seen on today's examination. There is no high-grade stenosis or focal vessel cut off seen throughout the intracranial circulation. Jugular veins: Patent bilaterally. Dural sinuses: Patent. Lung apices: Partially visualized upper lobe lung parenchyma appears clear. Soft tissues: The visualized pharyngeal soft tissues are normal in appearance noting angiographic phase technique. The oropharyngeal airway appears widely patent. The salivary and thyroid glands are normal in appearance. No cervical lymphadenopathy is seen. Skeletal structures: The skeletal structures are osteopenic. The calvarium appears intact. The cervical spine is maintained noting multilevel spondylosis. No lytic or blastic lesion is seen. Advanced degenerative change is seen at the left sternoclavicular joint. Orbits: The bony orbits are intact. Orbital contents are normal as visualized noting bilateral ocular lens implants. Surgical clips are seen in the right orbit. Sinuses and mastoids: There is evidence of previous paranasal sinus surgery. Mild mucosal thickening is noted in the left maxillary antrum and ethmoid sinuses. There is a left mastoid effusion. The right mastoid air cells are well pneumatized. IMPRESSION: 1 There is no evidence of hemorrhage, mass effect, or acute territorial ischemia noting angiographic phase technique. 2. 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 3. 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 4. Atherosclerotic plaque causes less than 50% luminal narrowing at the origin of the right internal carotid artery. ACT 112: Negative or not required by law. Electronically signed by: Carlos Atwood M.D. 08/25/2021 6:17 PM Medications Administered Home Medications atorvastatin 40 mg tablet (Lipitor) 40 mg PO HS #30 tab 07/02/21 [Rx Confirmed 08/25/21] clopidogrel 75 mg tablet 75 mg PO QAM #30 tab 07/02/21 [Rx Confirmed 08/25/21] isosorbide mononitrate 30 mg tablet,extended release 24 hr 30 mg PO QAM 30 Days #30 tab 07/02/21 [Rx Confirmed 08/25/21] nitroglycerin 0.4 mg sublingual tablet (Nitrostat) 0.4 mg SUBLINGUAL UD PRN #14 tab 07/02/21 [Rx Confirmed 08/25/21] escitalopram oxalate 5 mg tablet 10 mg PO QAM 08/25/21 [History Confirmed 08/25/21] levothyroxine 137 mcg tablet 137 mcg PO DAILYBB 08/25/21 [History Confirmed 08/25/21] lisinopril 10 mg-hydrochlorothiazide 12.5 mg tablet 1 tab PO QAM 08/25/21 [History Confirmed 08/25/21] memantine 10 mg tablet 10 mg PO AMHS 08/25/21 [History Confirmed 08/25/21] methenamine hippurate 1 gram tablet 1 g PO QAM 08/25/21 [History Confirmed 08/25/21] metoprolol tartrate 37.5 mg tablet 37.5 mg PO QAM 08/25/21 [History Confirmed 08/25/21] nitrofurantoin macrocrystal 50 mg capsule 50 mg PO QAM 08/25/21 [History Confirmed 08/25/21] omeprazole 20 mg capsule,delayed release 40 mg PO DAILY 08/25/21 [History Confirmed 08/25/21] sucralfate 1 gram tablet 1 g PO HS 08/25/21 [History Confirmed 08/25/21] Discontinued Medications Ioversol (Optiray 320 125ml) 120 ml IV ONCE ONE Stop: 08/25/21 17:50 Last Admin: 08/25/21 17:49 Dose: 120 ml Documented by: [id number] ECG Additional Comments: Normal sinus rhythm with sinus arrhythmia Normal ECG When compared with ECG of 30-JUN-2021 15:01, No significant change was found Code Status & VTE Plan Code Status CODE: FULL VTE: SCDS, ASA, Plavix VTE Prophylaxis Plan VTE Prophylaxis will be ordered: Yes Supervising Physician Co-Signing Physician Notes Attending addendum: I have physically seen this patient, have supervised the MAI's activities, and agree with the H&P unless as otherwise noted. Assessment and Plan: TIA versus TGA- CTA head neck negative Chronic left vertebral artery stenosis History of right cavernous carotid artery coil The patient will be admitted to telemetry for serial cardiac enzymes, serial EKG's, cardiac rhythm monitoring and a 2-D echocardiogram with Dopplers. Permissive hypertension overnight Stroke without tPA order set continue aspirin, Plavix And high-dose statin Recurrent urinary tract infection- Follow urine culture and sensitivity Hold nitrofurantoin due to potential effect on mentation Remaining orders and notations as noted PG Care Time/CCT Total # of Minutes Spent Total Time Spent with Patient: Total time spent is greater than 50% in coordination of care (as documented) at patient's floor/unit and/or counseling patient: Coding Level of Care Code INT OBSERVATION CARE 50M LVL 2 Diagnoses TIA (transient ischemic attack) G45.9 Recurrent UTI (urinary tract infection) N39.0 History of CVA with residual deficit I69.30 CAD (coronary artery disease) I25.10 Hypertension I10 Hypertension type: unspecified Ambulatory dysfunction R26.2 Dementia F03.90 Dementia behavioral disturbance: without behavioral disturbance Dementia type: unspecified type Hypomagnesemia E83.42 (1) Dementia Dementia behavioral disturbance: without behavioral disturbance Dementia type: unspecified type Qualified Code(s): F03.90 - Unspecified dementia without behavioral disturbance (2) Hypertension Hypertension type: unspecified Qualified Code(s): I10 - Essential (primary) hypertension
[2021-08-25] MEDS ORDERED: CARBOHYDRATES FOR HYPOGLYCEMIA PO PRN (23:17)
[2021-08-25] MEDS ORDERED: NITROGLYCERIN SL 0.4 MG/TAB TAB SL PRN (23:17)
[2021-08-25] MEDS ORDERED: GLUCAGON FOR INJ 1 MG VIAL SQ PRN (23:17)
[2021-08-25] MEDS ORDERED: DEXTROSE 50% 50 ML SYRINGE IV PRN (23:17)
[2021-08-25] MEDS ORDERED: ACETAMINOPHEN 325 MG TAB PO PRN (23:17)
[2021-08-25] MEDS ORDERED: GLUCOSE 40% GEL 15 GM TUBE PO PRN (23:17)
[2021-08-25] MEDS ORDERED: PHARMACIST DISCHARGE MED REC CONSULT PRN (23:17)
[2021-08-25] MEDS ORDERED: GLUCOSE 10 TABS/TUBE PO PRN (23:17)
[2021-08-25] MEDS: MAGNESIUM SULFATE / D5W 1 GM/100 ML BAG IV SCH (23:51)
[2021-08-26] MEDS: MAGNESIUM SULFATE / D5W 1 GM/100 ML BAG IV SCH (02:22)
[2021-08-26] MEDS ORDERED: LEVOTHYROXINE SODIUM 137 MCG TABLET PO SCH (06:30)
[2021-08-26 07:05] LABS: Basophils # (auto) 0.02 K/uL (0-0.2); Basophils % (auto) 0.3 %; Eosinophils # (auto) 0.51 K/uL (0-0.5); Eosinophils % (auto) 7.7 %; Hematocrit (blood only) 31.2 % (37-47); Hemoglobin 10.1 g/dL (12.0-16.0); Immature Granulocytes # (auto) 0.01 K/uL (0.00-0.02); Immature Granulocytes % (auto) 0.2 %; Lymphocytes # (auto) 1.45 K/uL (1.2-3.4); Mean Corpuscular Hemoglobin 27.2 pg (25-34); Mean Corpuscular Hgb Conc 32.4 g/dL (32-36); Mean Corpuscular Volume 84.1 fL (80-100); Mean Platelet Volume 10.5 fL (7.4-10.4); Monocytes # (auto) 0.83 K/uL (0.11-0.59); Monocytes % (auto) 12.6 %; Neutrophils # (auto) 3.77 K/uL (1.4-6.5); Neutrophils % (auto) 57.2 %; Platelet Count 232 K/uL (130-400); RDW Coefficient of Variation 14.1 % (11.5-14.5); RDW Standard Deviation 43.9 fL (36.4-46.3); Red Blood Count 3.71 M/uL (4.2-5.4); White Blood Count 6.59 K/uL (4.8-10.8)
[2021-08-26 07:22] LABS: BUN Creatinine Ratio 16.4 (10-20); Calcium 8.9 mg/dl (8.5-10.1); Chol HDL Ratio 2.5 (0-5); Creatinine Clr Calc Pharmacy 38.3 ml/min; Est GFR (African American) 52.6 ml/min; Est GFR (Non-African American) 45.4 ml/min; Magnesium 2.4 mg/dl (1.7-2.4); Potassium 4.1 mmol/L (3.5-5.1)
[2021-08-26 08:16] LABS: Estimated Average Glucose 126 mg/dl
--- NOTE | 2021-08-26 08:33 | Electrocardiogram Report ---
Test Reason : Blood Pressure : / mmHG Vent. Rate : 061 BPM Atrial Rate : 061 BPM P-R Int : 190 ms QRS Dur : 090 ms QT Int : 444 ms P-R-T Axes : 074 -22 006 degrees QTc Int : 446 ms Poor data quality, interpretation may be adversely affected Normal sinus rhythm with competing atrial pacemaker (last 3 beats) Normal ECG When compared with ECG of 30-JUN-2021 15:01, No significant change was found Confirmed by Neymar Sifuentes ([id number]) on 08/26/2021 8:32:59 AM Referred By: REFERRED SELF Confirmed By:Neymar Sifuentes
--- NOTE | 2021-08-26 08:40 | Electrocardiogram Report ---
Test Reason : Blood Pressure : / mmHG Vent. Rate : 063 BPM Atrial Rate : 063 BPM P-R Int : 180 ms QRS Dur : 100 ms QT Int : 416 ms P-R-T Axes : 059 -15 038 degrees QTc Int : 425 ms Normal sinus rhythm Normal ECG When compared with ECG of 25-AUG-2021 18:05, No significant change Confirmed by Neymar Sifuentes ([id number]) on 08/26/2021 8:40:24 AM Referred By: REFERRED SELF Confirmed By:Neymar Sifuentes
[2021-08-26] MEDS ORDERED: ISOSORBIDE MONO EXTENDED REL 30 MG TABCR PO SCH (09:00)
[2021-08-26] MEDS ORDERED: nitrofurantoin macrocrystaL 50 MG CAP PO SCH (09:00)
[2021-08-26] MEDS ORDERED: METHENAMINE HIPPURATE 1 GM TAB PO SCH (09:00)
[2021-08-26] MEDS ORDERED: CLOPIDOGREL BISULFATE 75 MG TAB PO SCH (09:00)
[2021-08-26] MEDS ORDERED: ESCITALOPRAM OXALATE 10 MG TAB PO SCH (09:00)
[2021-08-26] MEDS ORDERED: PANTOprazole 40 MG TAB PO SCH (09:00)
[2021-08-26] MEDS ORDERED: MEMANTINE HCL 10 MG TAB PO SCH (09:00)
[2021-08-26] MEDS ORDERED: ASPIRIN 81 MG ECTAB PO SCH (09:00)
[2021-08-26] MEDS ORDERED: METOPROLOL TARTRATE 25 MG TAB PO SCH (09:00)
--- NOTE | 2021-08-26 10:40 | XCELERA ---
[id number]
[2021-08-26] MEDS ORDERED: STROKE PATIENT DISCHARGE STA (14:42)
--- NOTE | 2021-08-26 14:46 | Discharge Summary ---
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 Patient comes to the EMD today by her daughter for concerns of change in speech which included her not being able to recall her middle or last name, reading signs as "jibberish", and sleepiness. This occurred today at approximately 1500, while the patient was in the car with her daughter eating chicken nuggets on their way home from dental appointment. The patient had evaluation at dentist today for bridge and teeth repair- she did not receive any sedation medications. The daughter states that this lasted until around 16:15 which spontaneously resolved. In the EMD the patient had routine blood work completed, CXR of the chest, CT of the head without contrast, CTA of the head and neck performed. These were all negative. Patient's glucose was normal. Repeat of her UA was negative. She was recently treated with Ciprofloxacin for UTI at beginning of July, she was then placed on methenamine and nitrofurantoin by Urology for prophylaxis. Patient is pleasantly demented, and with NIHSS of 0 currently. Daughter reports that she had an ECHO done within the past 2 days and recently followed up with Neurologist- Dr. Fitzgerald ([facility]) this week. Patient was previously admitted in June following fall with rib fractures in the setting of UTI. She was previously on DAPT following cath in 03/21 where nonobstructive CAD was noted, however her ASA was discontinued during that admission. Patient will be admitted to medical telemetry for TIA workup. She has not previously had an MRI secondary to her coil in her cavernous carotid artery- as she has no documentation of what material this is, although previous documentation from others states [place], but this is without further identifiable data to confirm. Recommend obtaining copy of this implant from [employer] [place] for on file Principal Diagnosis Possible TIA vs. transient confusion Discharge Exam Constitutional WD/WN, vitals as above Eyes EOM intact bilaterally; no conjunctival abnormality ENMT external ear and nose normal, oropharynx normal Neck trachea midline, no thyromegaly normal visual inspection Respiratory normal respiratory effort, lungs clear to auscultation no respiratory distress Cardiovascular RRR, no murmur, no edema Gastrointestinal (Abdomen) Inspection/Auscultation: abdomen normal to inspection; abdomen not distended Musculoskeletal no cyanosis or clubbing, extremities motor strength 5/5 Skin no rashes, warm and dry Neurologic moves all extremities and awake Psychiatric Orientation: alert, oriented to person and cooperative Not oriented to place, time, president, or season. Discharge Data Allergies Allergy/AdvReac Type Severity Reaction Status Date / Time cefpodoxime [From Vantin] Allergy Unknown Unknown Verified 08/25/21 18:24 Sulfa (Sulfonamide Allergy Unknown Unknown Verified 08/25/21 18:24 Antibiotics) Consultations 08/25/21 19:44 ED Decision to Admit Stat Ordered Studies 08/25/21 17:34 CT head/brain wo con Stat 08/25/21 17:42 CT angio head w con Stat CT angio neck with con Stat Hospital Course (1) TIA (transient ischemic attack): onset of difficulty reading road signs, and memory difficulty with her name - TIA vs. TGA - CTA head and neck with focal left vertebral artery stenosis. - Continue with statin - Restart DAPT with asa and plavix x 3 weeks, then consider switch back to only Plavix as she does have some bruising and bleeds extensively with cuts per daughter. (2) Recurrent UTI (urinary tract infection): UA negative in EMD. Culture negative. - continue suppressive therapy (3) History of CVA with residual deficit: CVA 2018 presumed left middle cerebral artery - as above - ASA, Plavix, Statin (4) CAD (coronary artery disease): Non obstructive from cath in 03/21 - thought possibly to vasospasm - continue imdur - other disease modiying medications as above (5) Hypertension: As above (6) Ambulatory dysfunction: - OOB with assistance to chair - High fall risk - Daughter wishes to take patient home. Resume home services. No further work-up needed prior to discharge. (7) Dementia: Chronic no acute change (8) Hypomagnesemia: Mag 1.7- replete with 2 gm IV Total Time Total Time Spent Total Time Spent (In Minutes): 35 Discharge Plan Discharge Items Patient Disposition: Home - Home Health Services Reason For Visit: TIA Discharge Diagnosis: Transient confusion and speech issues - Possible TIA Activity: Resume your previous activity Non-emergency contact: Primary Care Provider Call non-emergency contact if: your symptoms worsen Follow-up/Referrals: Jaguar Kelly [Primary Care Provider] - 09/02/21 3:30 pm Diet: Heart Healthy Addtl Attending Provider Instructions: Ms. Acuna was admitted with confusion as reported by her daughter. The confusion spontaneously resolved, and she appears to be at her baseline. Testing showed significant stenosis of the left vertebral artery. This is treated with medication and there is no surgical intervention available. Otherwise, all lab work and testing was normal. The urine test did not show any infection, and the culture is negative. This means your prophylactic medication is working! Great! Given that she has tolerated aspirin and Plavix for quite some time, I would recommend returning to taking the aspirin to help prevent any future issues. The closest trial related to this was called the CHANCE trial, they used aspirin + Plavix for 3 weeks, then returned to just Plavix. I would ask your PCP about this, but I think it could be a good plan for you. Pending Studies at Discharge: No Stand-Alone Forms: My [facility], Smoking Cessation Medications and DC Order Prescriptions: New aspirin 81 mg tablet,delayed release (DR/EC) 81 mg PO DAILY Qty: 1 RF: 0 Continued atorvastatin [Lipitor] 40 mg tablet 40 mg PO HS Qty: 30 RF: 0 isosorbide mononitrate 30 mg tablet extended release 24 hr 30 mg PO QAM 30 Days Qty: 30 RF: 0 clopidogrel 75 mg Tablet 75 mg PO QAM Qty: 30 RF: 3 nitroglycerin [Nitrostat] 0.4 mg Tablet, Sublingual 0.4 mg sublingual UD PRN (Reason: chest pain) Qty: 14 RF: 0 sucralfate 1 gram tablet 1 g PO HS RF: 0 lisinopril-hydrochlorothiazide 10-12.5 mg tablet 1 tab PO QAM RF: 0 omeprazole 20 mg capsule,delayed release(DR/EC) 40 mg PO DAILY RF: 0 memantine 10 mg tablet 10 mg PO AMHS RF: 0 methenamine hippurate 1 gram tablet 1 g PO QAM RF: 0 metoprolol tartrate 37.5 mg tablet 37.5 mg PO QAM RF: 0 escitalopram oxalate 5 mg tablet 10 mg PO QAM RF: 0 nitrofurantoin macrocrystal 50 mg capsule 50 mg PO QAM RF: 0 levothyroxine 137 mcg tablet 137 mcg PO DAILYBB RF: 0 Discharge Orders: Discharge Order (Routine); Ordered 08/26/21 Ordered By: Wyatt Malik/Other Patient Handouts: A1C Admission Data Admit Date/Time: 08/25/21 21:29 Attending Provider: Wyatt Toledo Admit Provider: Francisco Javier Guerrero Primary Care Provider: Jaguar Kelly Other Providers: Wyatt Toledo ; [facility],Home Health Coding Level of Care Code 52146 OBS Care - Discharge Diagnoses TIA (transient ischemic attack) G45.9 Recurrent UTI (urinary tract infection) N39.0 History of CVA with residual deficit I69.30 CAD (coronary artery disease) I25.10 Hypertension I10 Hypertension type: unspecified Ambulatory dysfunction R26.2 Dementia F03.90 Dementia behavioral disturbance: without behavioral disturbance Dementia type: unspecified type Hypomagnesemia E83.42
--- NOTE | 2021-08-26 15:11 | Pharmacy Report ---
Pharmacist Stroke Counseling - Date of Service August 26, 2021 - Scope: Pharmacy has been consulted to provide medication discharge counseling for this patient admitted with transient ischemic attack as per the Pharmacist Discharge Counseling for Stroke Patients Protocol. - Medications on Discharge: Home Medications Medication Instructions Recorded Confirmed escitalopram oxalate 5 mg tablet 10 mg PO QAM 08/25/21 08/25/21 levothyroxine 137 mcg tablet 137 mcg PO DAILYBB 08/25/21 08/25/21 lisinopril 10 1 tab PO QAM 08/25/21 08/25/21 mg-hydrochlorothiazide 12.5 mg tablet memantine 10 mg tablet 10 mg PO AMHS 08/25/21 08/25/21 methenamine hippurate 1 gram tablet 1 g PO QAM 08/25/21 08/25/21 metoprolol tartrate 37.5 mg tablet 37.5 mg PO QAM 08/25/21 08/25/21 nitrofurantoin macrocrystal 50 mg 50 mg PO QAM 08/25/21 08/25/21 capsule omeprazole 20 mg capsule,delayed 40 mg PO DAILY 08/25/21 08/25/21 release sucralfate 1 gram tablet 1 g PO HS 08/25/21 08/25/21 New Rx's Medication Instructions Recorded atorvastatin 40 mg tablet (Lipitor) 40 mg PO HS #30 tab 07/02/21 clopidogrel 75 mg tablet 75 mg PO QAM #30 tab 07/02/21 isosorbide mononitrate 30 mg 30 mg PO QAM 30 Days #30 tab 07/02/21 tablet,extended release 24 hr nitroglycerin 0.4 mg sublingual 0.4 mg SUBLINGUAL UD PRN #14 tab 07/02/21 tablet (Nitrostat) aspirin 81 mg tablet,delayed 81 mg PO DAILY #1 tab 08/26/21 release - Action: The above medications, specifically ones for stroke treatment/prophylaxis, have been reviewed in detail with the patient and/or patient telephone claims representative(s) prior to discharge. This includes indication, common adverse reactions, drug interactions, and medication administration. Medication counseling has been employed using the teach-back method to ensure understanding. - Outcome: The patient and/or patient telephone claims representative(s) have demonstrated understanding of the medications. Additional comments: -discussed medication changes with patient's daughter, Taylor. She is very knowledgeable about the patient's medication regimen and is comfortable with the patient being back on aspirin. No barriers to medication compliance identified. Thank you for allowing pharmacy to be involved in the care of this patient. Please call [phone] with any additional questions
[2021-08-26] MEDS ORDERED: ATORVASTATIN 40 MG TAB PO SCH (21:00)
[2021-08-26] MEDS ORDERED: SUCRALFATE 1 GM TAB PO SCH (21:00)
== END 2021-08-26 15:44 | disposition home health service (06) ==
LOC: ED 16:54 → 2N 16:54 → SUATTDRO 21:29 → 2N 23:10

== ENCOUNTER 2022-06-28 18:29 | Observation (INO) ==
--- NOTE | 2022-06-28 18:31 | Emergency Department Note ---
Impression & Plan Near syncope, Hypothyroidism, Elevated troponin ED Provider Note NAME: MONTSE DELGADO AGE: 86 SEX: M : 1935 ARRIVES VIA: Ambulance INFORMANT: Patient, ED PROVIDER(S): Dipesh Dean MD CHIEF COMPLAINT: Change in mental status MEDICAL DECISION MAKING: Patient presented due to concern for change in mentation. Patient did have blood work completed and IV was established CT of the head and abdomen pelvis were performed in addition to an EKG and blood work. Patient's blood work shows a normal white counts with mild anemia hemoglobin 11.8. The patient's kidney function is with a creat of 1.7. Initial troponin of 117 which is elevated. Patient's TSH was elevated but free T4 is normal. COVID flu and RSV negative. Given these concerns I did speak with the on-call hospitalist service and the patient was admitted to the medicine service by Dr. Mata. Urinalysis deferred treatment inpatient service. Prior /Outside records reviewed: I did review a neurology note from Dr. Chamorro in December. The patient did have a prior history of CVA. Differential diagnosis: Infection, dehydration, metabolic abnormality, hypo/hyperglycemia, electrolyte disturbance, anemia, hypoxia, cardiac sources, intracerebral event, toxicologic, neurologic, as well as other pathologies. Diagnostics, as interpreted by me: ECG: Normal sinus rhythm, rate 66 normal intervals normal axis no ST elevations. Cardiac monitoring: An order was placed for continuous cardiac monitoring. The monitor shows a rate of 68 with sinus rhythm. Patient was placed on pulse oximetry Medical decision rules: None Imaging studies: See below I did review the patient's chest x-ray x-ray of the tibia and fibula left side, x-ray of the femur right side as well as x-ray of the pelvis. No obvious fracture or dislocation noted by my read. No obvious pneumothorax or pneumonia seen on chest x-ray HPI: Patient does presents for home for change in mental status per family reporting that there is a change in her mental status. EMS did arrive and the patient had a negative stroke scale. There was report that the family had lowered the patient to the floor but unsure whether or not the patient had a fall. It is reported the patient does take blood thinners. Patient currently denies any pain in the chest head or neck. The patient states that at 1 point she did feel nauseous but currently does not feel so. No vomiting or diarrhea. No cough or fever. Patient denies any alcohol or tobacco use. BSG prior to arrival was in the 160s. In the room it is 170s I did gather further history from the patient's daughter who stated that patient had been asking to have a bowel movement and then did not want to and at the time that she was able to the patient did have a brief episode where she seemed to be out of it but never actually passed out. PAST MEDICAL HISTORY: See Below PAST SURGICAL HISTORY: See Below SOCIAL HISTORY: See Below HOME MEDICATIONS: See Below ALLERGIES: See Below VITALS: See Below PHYSICAL EXAMINATION: GENERAL: NAD, wearing a mask, non-toxic. EYE EXAM: Normal conjunctiva. PERRL, no anisocoria and EOM's grossly intact w/o pain. NECK: Supple, no nuchal rigidity, no adenopathy, non-tender. No signs of meningismus. FROM of the neck with good chin to chest and neck extension. No stridor. LUNGS: Clear to auscultation. Normal chest wall mechanics. HEART: NSR, no MRG. ABDOMEN: Abdomen soft, mild diffuse discomfort more prominent in the upper abdomen, no masses, no rebound or guarding. BACK: No CVA TTP. SKIN: No rashes and no bruising. UPPER EXTREMITIES: Upper extremities are grossly normal. LOWER EXTREMITIES: Bilateral lower extremities held in hip flexion, mild pain with straightening out the right leg, mild pain to the posterior aspect of the femur without overlying skin changes, bilateral lower extremities cool to the touch but sensate per patient, ecchymosis noted to the left proximal tibia without obvious deformity mild TTP NEURO EXAM: Awake and alert, oriented to person, cranial nerves II-XII grossly intact, normal speech, moves all 4 extremities. Past Med/Surg History Medical History Acute confusion Acute kidney injury CAD (coronary artery disease) Carotid stenosis, bilateral Chest pain Chronic kidney disease Confusion Dementia Diabetes DVT prophylaxis Dyslipidemia Elevated troponin Elevated troponin History of CVA with residual deficit HTN (hypertension) Hypertension Hypothyroidism Non-ST elevation (NSTEMI) myocardial infarction NSTEMI (non-ST elevated myocardial infarction) Osteoarthritis of right knee Retrosternal chest pain T2DM (type 2 diabetes mellitus) UTI (urinary tract infection) Surgical History History of cataract surgery Family History Mother , age 69 with heart disease No problems noted. Father No problems noted. Other Family history non-contributory Social History Smoking Status: Never smoker Hx Alcohol Use: No Hx Substance Use: No Preferred Language: German Communication Ability: Impaired Communication Ability Comment: Patient is only alert and oriented to person only Clam Treader Required: No Beliefs That Will Affect Care: None marital status: / Current Living Situation: Spouse and Family Current Living Situation Comment: Patient lives with her son, but her daughter and son in law also help How many Children do You have: 2 Feels Safe at Home: Yes Safety Concerns: Feels Safe At This Time Assistive Devices: Bedside Commode, Hospital Bed, Walker and Wheelchair Allergies Allergies Allergy/AdvReac Type Severity Reaction Status Date / Time cefpodoxime [From Vantin] Allergy Unknown Unknown Verified 06/29/22 07:43 Sulfa (Sulfonamide Allergy Unknown Unknown Verified 06/29/22 07:43 Antibiotics) sulfamethoxazole Allergy Rash Verified 06/29/22 07:43 [From Bactrim] trimethoprim [From Bactrim] Allergy Rash Verified 06/29/22 07:43 Home Meds Home Medications Medication Instructions Recorded Confirmed acetaminophen 500 mg tablet 1,000 mg PO DIRECTED PRN Pain 09/02/21 12/19/21 (Tylenol Extra Strength) diclofenac sodium 1 % topical gel 4 g topical QID PRN Pain 09/02/21 12/19/21 turmeric root extract 500 mg 500 mg PO DAILY 09/02/21 12/19/21 capsule aspirin 81 mg chewable tablet 81 mg PO DAILY 06/28/22 06/28/22 atorvastatin 40 mg tablet 40 mg PO HS 06/28/22 06/28/22 clopidogrel 75 mg tablet 75 mg PO DAILY 06/28/22 06/28/22 escitalopram oxalate 20 mg tablet 20 mg PO DAILY 06/28/22 06/28/22 isosorbide mononitrate 30 mg 30 mg PO QAM 06/28/22 06/28/22 tablet,extended release 24 hr levothyroxine 137 mcg tablet 137 mcg PO DAILY 06/28/22 06/28/22 lisinopril 10 1 tab PO DAILY 06/28/22 06/28/22 mg-hydrochlorothiazide 12.5 mg tablet memantine 10 mg tablet 10 mg PO BID 06/28/22 06/28/22 methenamine hippurate 1 gram tablet 1 g PO QAM 06/28/22 06/28/22 metoprolol succinate 25 mg 25 mg PO DAILY 06/28/22 06/28/22 tablet,extended release 24 hr nitrofurantoin macrocrystal 50 mg 50 mg PO DAILY 06/28/22 06/28/22 capsule pantoprazole 40 mg tablet,delayed 40 mg PO QAM 06/28/22 06/28/22 release sucralfate 1 gram tablet 1 g PO HS 06/28/22 06/28/22 Previous Rx's Medication Instructions Recorded ciprofloxacin HCl 250 mg tablet 250 mg PO BID #11 tabs 06/30/22 Results & Data (ED) Vital Signs Vital Signs - 24 hr 06/28/22 18:38 06/28/22 18:38 06/28/22 19:21 Temperature 36.7 C Temperature Source Oral Pulse Rate 74 70 Pulse Rhythm Regular Pulse Strength Normal Respiratory Rate 18 Respiratory Effort / Characteristics Non-Labored Spontaneous Respiratory Depth Normal Blood Pressure 152/61 H Blood Pressure Mean 91 Blood Pressure Position Lying Pulse Oximetry 98 96 Oxygen Delivery Method Room Air Room Air Sepsis Recent Fever Within 48 Hours No Sepsis New/Unexplained Change in Mental Status No Sepsis Action Taken by Nursing No Action Required 06/28/22 20:12 06/28/22 20:35 Temperature Temperature Source Pulse Rate 62 Pulse Rhythm Pulse Strength Respiratory Rate 18 Respiratory Effort / Characteristics Respiratory Depth Blood Pressure 145/113 H Blood Pressure Mean 123 Blood Pressure Position Pulse Oximetry 96 98 Oxygen Delivery Method Room Air Sepsis Recent Fever Within 48 Hours Sepsis New/Unexplained Change in Mental Status Sepsis Action Taken by Alf Medications Current Medication List: was personally reviewed by me Laboratory Data Attestation: I reviewed the patient's lab results. 06/28/22 18:45 06/28/22 18:45 Lab Results 06/28/22 06/28/22 06/28/22 Range/Units 18:42 18:45 18:45 WBC 8.87 (4.8-10.8) K/ul RBC 4.13 L (4.70-6.10) M/uL Hgb 11.8 L (14.0-18.0) g/dl Hct 36.1 L (42.0-52.0) % MCV 87.4 (80.0-100.0) fL MCH 28.6 (25.0-34.0) pg MCHC 32.7 (32.0-36.0) g/dL RDW Std Deviation 45.1 (36.4-46.3) fL RDW Coeff of Michaela 14.1 (11.5-14.5) % Plt Count 258 (130-400) K/uL MPV 10.7 (9.4-12.4) fL Immature Gran % (Auto) 0.3 % Neut % (Auto) 76.7 % Lymph % (Auto) 13.9 % Blanco % (Auto) 6.7 % Eos % (Auto) 1.9 % Baso % (Auto) 0.5 % Neut # (Auto) 6.81 H (1.40-6.50) K/uL Lymph # (Auto) 1.23 (1.2-3.4) K/uL Blanco # (Auto) 0.59 (0.11-0.59) K/uL Eos # (Auto) 0.17 (0-0.50) K/uL Baso # (Auto) 0.04 (0-0.2) K/uL Immature Gran # (Auto) 0.03 (0.01-0.20) K/uL Sodium 143 (136-145) mmol/L Potassium 4.4 (3.5-5.1) mmol/L Chloride 109 H (98-107) mmol/L Carbon Dioxide 25 (21-32) mmol/L Anion Gap 9 (3-11) BUN 43 H (6-23) mg/dl Creatinine 1.74 H (0.6-1.4) mg/dl Est Cr Clr Drug Dosing 27.7 ml/min Est GFR ( Amer) 40.0 ml/min Est GFR (Non-Af Amer) 34.5 ml/min BUN/Creatinine Ratio 24.7 H (10-20) Glucose 172 H (70-99(Fasting)) mg/dl POC Glucose 176 H (70-99) mg/dl Calcium 9.7 (8.6-10.3) mg/dl Magnesium 2.0 (1.7-2.4) mg/dl Total Bilirubin 0.4 (0.2-1.0) mg/dl AST 17 (13-39) U/L ALT 12 (7-52) U/L Alkaline Phosphatase 83 (34-104) U/L Troponin I High Sens 117.3 H* (0-20) pg/ml Total Protein 7.7 (6.0-8.3) gm/dl Albumin 4.2 (3.4-5.0) gm/dl Globulin 3.5 (2.5-4.0) gm/dl Albumin/Globulin Ratio 1.2 (0.9-2) TSH (0.300-4.500) uIu/ml Free T4 (0.61-1.60) ng/dl Urine Color Urine Appearance (Clear) Urine pH (4.5-7.5) Ur Specific Bl[place]coe (1.000-1.030) Urine Protein (Negative) Urine Glucose (UA) (Negative) Urine Ketones (Negative) Urine Blood (Negative) Urine Nitrite (Negative) Urine Bilirubin (Negative) Urine Urobilinogen (Negative) Ur Leukocyte Esterase (Negative) Urine WBC (Auto) (0-5) /hpf Urine RBC (Auto) (0-4) /hpf U Hyaline Cast (Auto) (0-5) /lpf U Epithel Cells (Auto) (0-5) /lpf Urine Bacteria (Auto) (Negative) SARS-CoV-2 (PCR) (Negative) Influenza Type A (PCR) (Neg) Influenza Type B (PCR) (Neg) RSV (RT-PCR) (Neg) 06/28/22 06/28/22 06/28/22 Range/Units 18:45 18:50 21:33 WBC (4.8-10.8) K/ul RBC (4.70-6.10) M/uL Hgb (14.0-18.0) g/dl Hct (42.0-52.0) % MCV (80.0-100.0) fL MCH (25.0-34.0) pg MCHC (32.0-36.0) g/dL RDW Std Deviation (36.4-46.3) fL RDW Coeff of Michaela (11.5-14.5) % Plt Count (130-400) K/uL MPV (9.4-12.4) fL Immature Gran % (Auto) % Neut % (Auto) % Lymph % (Auto) % Blanco % (Auto) % Eos % (Auto) % Baso % (Auto) % Neut # (Auto) (1.40-6.50) K/uL Lymph # (Auto) (1.2-3.4) K/uL Blanco # (Auto) (0.11-0.59) K/uL Eos # (Auto) (0-0.50) K/uL Baso # (Auto) (0-0.2) K/uL Immature Gran # (Auto) (0.01-0.20) K/uL Sodium (136-145) mmol/L Potassium (3.5-5.1) mmol/L Chloride (98-107) mmol/L Carbon Dioxide (21-32) mmol/L Anion Gap (3-11) BUN (6-23) mg/dl Creatinine (0.6-1.4) mg/dl Est Cr Clr Drug Dosing ml/min Est GFR ( Amer) ml/min Est GFR (Non-Af Amer) ml/min BUN/Creatinine Ratio (10-20) Glucose (70-99(Fasting)) mg/dl POC Glucose (70-99) mg/dl Calcium (8.6-10.3) mg/dl Magnesium (1.7-2.4) mg/dl Total Bilirubin (0.2-1.0) mg/dl AST (13-39) U/L ALT (7-52) U/L Alkaline Phosphatase (34-104) U/L Troponin I High Sens (0-20) pg/ml Total Protein (6.0-8.3) gm/dl Albumin (3.4-5.0) gm/dl Globulin (2.5-4.0) gm/dl Albumin/Globulin Ratio (0.9-2) TSH 26.028 H (0.300-4.500) uIu/ml Free T4 1.09 (0.61-1.60) ng/dl Urine Color Dark Yellow Urine Appearance Cloudy A (Clear) Urine pH 5.0 (4.5-7.5) Ur Specific [place] 1.023 (1.000-1.030) Urine Protein 1+ H (Negative) Urine Glucose (UA) Negative (Negative) Urine Ketones Trace H (Negative) Urine Blood Trace H (Negative) Urine Nitrite Positive A (Negative) Urine Bilirubin Negative (Negative) Urine Urobilinogen Negative (Negative) Ur Leukocyte Esterase 2+ H (Negative) Urine WBC (Auto) >30 H (0-5) /hpf Urine RBC (Auto) 5-10 H (0-4) /hpf U Hyaline Cast (Auto) >30 H (0-5) /lpf U Epithel Cells (Auto) 5-10 H (0-5) /lpf Urine Bacteria (Auto) 4+ H (Negative) SARS-CoV-2 (PCR) NEGATIVE (Negative) Influenza Type A (PCR) Negative (Neg) Influenza Type B (PCR) Negative (Neg) RSV (RT-PCR) Negative (Neg) Administered Medications Acetaminophen (Acetaminophen 325 Mg Tab) 650 mg PO Q4H PRN PRN Reason: Pain or Fever Stop: 07/29/22 00:49 Last Admin: 06/30/22 12:35 Dose: 650 mg Documented By: KEM Aspirin (Aspirin 81 Mg Ectab) 81 mg PO DAILY [facility] Stop: 07/29/22 08:59 Last Admin: 06/30/22 08:54 Dose: 81 mg Documented By: Admin: 06/29/22 09:05 Dose: 81 mg Documented By: KEM Atorvastatin Calcium (Atorvastatin 40 Mg Tab) 40 mg PO HS [facility] Stop: 07/29/22 20:59 Last Admin: 06/29/22 21:05 Dose: 40 mg Documented By: KANDI Clopidogrel Bisulfate (Clopidogrel Bisulfate 75 Mg Tab) 75 mg PO DAILY [facility] Stop: 07/29/22 08:59 Last Admin: 06/30/22 08:53 Dose: 75 mg Documented By: Admin: 06/29/22 09:05 Dose: 75 mg Documented By: KEM Escitalopram Oxalate (Escitalopram Oxalate 20 Mg Tab) 20 mg PO DAILY [facility] Stop: 07/29/22 08:59 Last Admin: 06/30/22 08:53 Dose: 20 mg Documented By: Admin: 06/29/22 09:06 Dose: 20 mg Documented By: KEM Ciprofloxacin Lactate (Cipro / D5w) 200 mg in 100 mls @ 100 mls/hr IV Q12 [facility]; Protocol Stop: 07/04/22 08:59 Last Infusion: 06/30/22 09:59 Dose: 0 mls/hr Documented By: Admin: 06/30/22 08:54 Dose: 100 mls/hr Documented By: Infusion: 06/29/22 22:14 Dose: 0 mls/hr Documented By: Admin: 06/29/22 21:06 Dose: 100 mls/hr Documented By: Infusion: 06/29/22 11:28 Dose: 0 mls/hr Documented By: Admin: 06/29/22 09:40 Dose: 100 mls/hr Documented By: KEM Isosorbide Mononitrate (Isosorbide Blanco Extended Rel 30 Mg Tabcr) 30 mg PO [facility] Stop: 07/29/22 08:59 Last Admin: 06/30/22 08:53 Dose: 30 mg Documented By: Admin: 06/29/22 09:06 Dose: 30 mg Documented By: KEM Levothyroxine Sodium (Levothyroxine Sodium 137 Mcg Tablet) 137 mcg PO DAILYBB [facility] Stop: 07/29/22 06:29 Last Admin: 06/30/22 06:16 Dose: 137 mcg Documented By: Admin: 06/29/22 06:24 Dose: 137 mcg Documented By: JOSÉ LUIS Memantine (Memantine Hcl 10 Mg Tab) 10 mg PO BID [facility] Stop: 07/29/22 08:59 Last Admin: 06/30/22 08:53 Dose: 10 mg Documented By: Admin: 06/29/22 21:05 Dose: 10 mg Documented By: Admin: 06/29/22 09:05 Dose: 10 mg Documented By: KEM Methenamine Hippurate (Methenamine Hippurate 1 Gm Tab) [facility] [place] Stop: 07/04/22 08:59 Last Admin: 06/30/22 08:53 Dose: 1 gm Documented By: Admin: 06/29/22 09:05 Dose: 1 gm Documented By: KEM Metoprolol Succinate (Metoprolol Succ 25mg Ext Rel Tab) 25 mg PO DAILY [facility] Stop: 07/29/22 08:59 Last Admin: 06/30/22 08:53 Dose: 25 mg Documented By: Admin: 06/29/22 09:05 Dose: 25 mg Documented By: KEM Pantoprazole Sodium (Pantoprazole 40 Mg Tab) 40 mg PO QAM [facility] Stop: 07/29/22 08:59 Last Admin: 06/30/22 08:53 Dose: 40 mg Documented By: Admin: 06/29/22 09:05 Dose: 40 mg Documented By: KEM Sucralfate (Sucralfate 1 Gm Tab) 1 gm PO HS [facility] Stop: 07/29/22 20:59 Last Admin: 06/29/22 21:05 Dose: 1 gm Documented By: KANDI Discontinued Medications Cephalexin HCl (Cephalexin 250 Mg Cap) 250 mg PO Q8 [facility]; Protocol Stop: 07/04/22 01:29 Last Admin: 06/29/22 08:00 Dose: Not Given Documented By: Admin: 06/29/22 01:21 Dose: 250 mg Documented By: JOSÉ LUIS Lactated Ringer's (Lr) 1,000 mls @ 100 mls/hr IV .Q10H [facility] Stop: 06/29/22 17:23 Last Infusion: 06/29/22 22:15 Dose: 0 mls/hr Documented By: Infusion: 06/29/22 14:43 Dose: 100 mls/hr Documented By: Admin: 06/29/22 11:19 Dose: 125 mls/hr Documented By: Infusion: 06/29/22 09:06 Dose: 125 mls/hr Documented By: Admin: 06/29/22 01:06 Dose: 125 mls/hr Documented By: JOSÉ LUIS Imaging Data Radiologist's Impression: Head CT 06/28/22 18:47 Exam(s): CT HEAD Without Contrast EXAM: CT Head Without Intravenous Contrast CLINICAL HISTORY: Reason for exam: confusion. TECHNIQUE: Axial computed tomography images of the head/brain without intravenous contrast. Automated exposure control was utilized for the study. A dose lowering technique was utilized adhering to the principles of ALARA. COMPARISON: No relevant prior studies available. FINDINGS: No acute intracranial hemorrhage. No midline shift or mass effect. The territorial dougherty-white matter differentiation is maintained throughout. Embolization coil. Age-related cerebral volume loss. Periventricular and subcortical white matter hypoattenuation, consistent with chronic microangiopathy. The visualized orbits appear grossly unremarkable. The calvarium is intact. The visualized paranasal sinuses and mastoid air cells are grossly clear. IMPRESSION: No acute intracranial hemorrhage, midline shift, or mass effect. Embolization coil. Electronically signed by: Adama Marcial MD 06/28/22 20:34 PM Abdomen/Pelvis CT 06/28/22 20:01 Exam(s): CT ABDOMEN + PELVIS Without Contrast EXAM: CT Abdomen and Pelvis Without Intravenous Contrast CLINICAL HISTORY: Reason for exam: mid ab pain. TECHNIQUE: Axial computed tomography images of the abdomen and pelvis without intravenous contrast. Automated exposure control was utilized for the study. A dose lowering technique was utilized adhering to the principles of ALARA. COMPARISON: No relevant prior studies available. FINDINGS: Lung bases: Unremarkable. No mass. No consolidation. Heart: Cardiomegaly. ABDOMEN: Liver: Unremarkable. No focal hepatic lesion. Gallbladder and bile ducts: Unremarkable. No calcified stones. No ductal dilation. Pancreas: Unremarkable. No ductal dilation. Spleen: Unremarkable. No splenomegaly. Adrenals: Unremarkable. No mass. Kidneys and ureters: Unremarkable. No hydronephrosis or nephrolithiasis. Stomach and bowel: Diverticulosis, without acute diverticulitis. No small bowel obstruction. No free intraperitoneal air. PELVIS: Appendix: Normal appendix. Bladder: Decompressed urinary bladder. No stones. Reproductive: Unremarkable as visualized. ABDOMEN and PELVIS: Intraperitoneal space: Unremarkable. No free air. No significant fluid collection. Bones/joints: Degenerative changes of the spine. No acute fracture. No dislocation. Soft tissues: Unremarkable. Vasculature: Atherosclerotic changes of the aorta. No abdominal aortic aneurysm. Lymph nodes: Unremarkable. No enlarged lymph nodes. IMPRESSION: No acute findings in the abdomen or pelvis. Electronically signed by: Adama Marcial MD 06/28/22 20:36 PM Chest X-Ray 06/28/22 18:47 SINGLE VIEW CHEST CLINICAL HISTORY: Generalized weakness. Dementia. FINDINGS: An AP, portable, upright chest radiograph is obtained. No prior studies are available for comparison at the time of dictation. The heart is mildly enlarged noting atherosclerotic calcification of the thoracic aorta. The pulmonary vasculature is noncongested. Chronic interstitial thickening is similar to previous. There is bibasilar scarring/atelectasis. The lungs and pleural spaces are otherwise clear. No pneumothorax is seen. The skeletal s tructures are osteopenic. The bony thorax is grossly intact. IMPRESSION: Cardiomegaly with no acute cardiopulmonary abnormality. ACT 112: Negative or not required by law. Electronically signed by: Carlos Atwood M.D. 06/29/2022 7:41 AM Femur X-Ray 06/28/22 18:47 SINGLE VIEW PELVIS; 3 VIEWS RIGHT FEMUR CLINICAL HISTORY: Right leg pain. Dementia. FINDINGS: An AP supine view of the pelvis with AP, frog-leg, and crosstable lateral views of the right femur are obtained. Comparison is made to study dated 01/31/2021. The skeletal structures are osteopenic. There is no radiographic evidence of acute fracture involving the hips or bony pelvis. There is no radiographic evidence of right femoral fracture. [id number] arthritic change and joint space narrowing is seen in the hips. There is no radiographic evidence of avascular necrosis the femoral heads. Sclerotic change is noted in the sacroiliac joints. Lumbosacral spondylosis is partially visualized. The right knee joint is grossly maintained noting arthritic change. The overlying soft tissues are normal in appearance. IMPRESSION: 1. No acute bony abnormality is seen involving the hips or pelvis. 2. There is no radiographic evidence of right femoral fracture. Electronically signed by: Carlos Atwood M.D. 06/29/2022 7:[address] 06/28/22 18:47 Exam(s): CT HEAD Without Contrast EXAM: CT Head Without Intravenous Contrast CLINICAL HISTORY: Reason for exam: confusion. TECHNIQUE: Axial computed tomography images of the head/brain without intravenous contrast. Automated exposure control was utilized for the study. A dose lowering technique was utilized adhering to the principles of ALARA. COMPARISON: No relevant prior studies available. FINDINGS: No acute intracranial hemorrhage. No midline shift or mass effect. The territorial dougherty-white matter differentiation is maintained throughout. Embolization coil. Age-related cerebral volume loss. Periventricular and subcortical white matter hypoattenuation, consistent with chronic microangiopathy. The visualized orbits appear grossly unremarkable. The calvarium is intact. The visualized paranasal sinuses and mastoid air cells are grossly clear. IMPRESSION: No acute intracranial hemorrhage, midline shift, or mass effect. Embolization coil. Electronically signed by: Adama Marcial MD 06/28/22 20:34 PM Pelvis X-Ray 06/28/22 18:47 SINGLE VIEW PELVIS; 3 VIEWS RIGHT FEMUR CLINICAL HISTORY: Right leg pain. Dementia. FINDINGS: An AP supine view of the pelvis with AP, frog-leg, and crosstable lateral views of the right femur are obtained. Comparison is made to study dated 01/31/2021. The skeletal structures are osteopenic. There is no radiographic evidence of acute fracture involving the hips or bony pelvis. There is no radiographic evidence of right femoral fracture. [id number] arthritic change and joint space narrowing is seen in the hips. There is no radiographic evidence of avascular necrosis the femoral heads. Sclerotic change is noted in the sacroiliac joints. Lumbosacral spondylosis is partially visualized. The right knee joint is grossly maintained noting arthritic change. The overlying soft tissues are normal in appearance. IMPRESSION: 1. No acute bony abnormality is seen involving the hips or pelvis. 2. There is no radiographic evidence of right femoral fracture. Electronically signed by: Carlos Atwood M.D. 06/29/2022 7:46 AM Tibia/Fibula X-Ray 06/28/22 18:47 LEFT TIBIA AND FIBULA 2 VIEWS CLINICAL HISTORY: Left lower extremity ecchymosis. FINDINGS: AP and crosstable lateral views of the left tibia and fibula are obtained. No prior studies are available for comparison at the time of dictation. The skeletal structures are osteopenic. There is no radiographic evidence of left tibial or fibular fracture. Degenerative change is noted in the knee. The ankle joint appears maintained. Mild soft tissue swelling and phleboliths are noted in the calf. IMPRESSION: No acute bony abnormality is identified. Electronically signed by: Carlos Atwood M.D. 06/29/2022 7:40 AM Abdomen/Pelvis CT 06/28/22 20:01 Exam(s): CT ABDOMEN + PELVIS Without Contrast EXAM: CT Abdomen and Pelvis Without Intravenous Contrast CLINICAL HISTORY: Reason for exam: mid ab pain. TECHNIQUE: Axial computed tomography images of the abdomen and pelvis without intravenous contrast. Automated exposure control was utilized for the study. A dose lowering technique was utilized adhering to the principles of ALARA. COMPARISON: No relevant prior studies available. FINDINGS: Lung bases: Unremarkable. No mass. No consolidation. Heart: Cardiomegaly. ABDOMEN: Liver: Unremarkable. No focal hepatic lesion. Gallbladder and bile ducts: Unremarkable. No calcified stones. No ductal dilation. Pancreas: Unremarkable. No ductal dilation. Spleen: Unremarkable. No splenomegaly. Adrenals: Unremarkable. No mass. Kidneys and ureters: Unremarkable. No hydronephrosis or nephrolithiasis. Stomach and bowel: Diverticulosis, without acute diverticulitis. No small bowel obstruction. No free intraperitoneal air. PELVIS: Appendix: Normal appendix. Bladder: Decompressed urinary bladder. No stones. Reproductive: Unremarkable as visualized. ABDOMEN and PELVIS: Intraperitoneal space: Unremarkable. No free air. No significant fluid collection. Bones/joints: Degenerative changes of the spine. No acute fracture. No dislocation. Soft tissues: Unremarkable. Vasculature: Atherosclerotic changes of the aorta. No abdominal aortic aneurysm. Lymph nodes: Unremarkable. No enlarged lymph nodes. IMPRESSION: No acute findings in the abdomen or pelvis. Electronically signed by: Adama Marcial MD 06/28/22 20:36 PM Discharge Plan Visit Data Chief Complaint: Altered Mental Status Stated Complaint: AMS ED Provider: Dipesh Dean Discharge Problem: Near syncope, Hypothyroidism, Elevated troponin Patient Disposition: Admitted As Inpatient Discharge Instructions Interventions: ED Discharge Assessment Last Done: 06/29/22 00:24
[2022-06-28 18:59] LABS: Basophils # (auto) 0.04 K/uL (0-0.2); Basophils % (auto) 0.5 %; Eosinophils # (auto) 0.17 K/uL (0-0.50); Eosinophils % (auto) 1.9 %; Immature Granulocytes # (auto) 0.03 K/uL (0.01-0.20); Immature Granulocytes % (auto) 0.3 %; Lymphocytes # (auto) 1.23 K/uL (1.2-3.4); Lymphocytes % (auto) 13.9 %; Mean Corpuscular Hemoglobin 28.6 pg (25.0-34.0); Mean Corpuscular Hgb Conc 32.7 g/dL (32.0-36.0); Mean Corpuscular Volume 87.4 fL (80.0-100.0); Mean Platelet Volume 10.7 fL (9.4-12.4); Monocytes # (auto) 0.59 K/uL (0.11-0.59); Monocytes % (auto) 6.7 %; Neutrophils # (auto) 6.81 K/uL (1.40-6.50); Neutrophils % (auto) 76.7 %; Platelet Count 258 K/uL (130-400); RDW Coefficient of Variation 14.1 % (11.5-14.5); RDW Standard Deviation 45.1 fL (36.4-46.3); White Blood Count 8.87 K/ul (4.8-10.8)
[2022-06-28 19:15] LABS: Albumin Globulin Ratio 1.2 (0.9-2); Albumin Level 4.2 gm/dl (3.4-5.0); BUN Creatinine Ratio 24.7 (10-20); Bilirubin,Total 0.4 mg/dl (0.2-1.0); Calcium 9.7 mg/dl (8.6-10.3); Globulin 3.5 gm/dl (2.5-4.0); Potassium 4.4 mmol/L (3.5-5.1); Total Protein 7.7 gm/dl (6.0-8.3)
[2022-06-28 19:30] LABS: Thyroid Stimulating Hormone 26.028 uIu/ml (0.300-4.500)
[2022-06-28 19:33] LABS: Influenza A virus by PCR Negative (Neg); Influenza B virus by PCR Negative (Neg); RSV by PCR Negative (Neg); SARS CoV2 RNA(COVID-19) Ceph NEGATIVE (Negative)
[2022-06-28 20:07] LABS: T4 Free Thyroxine 1.09 ng/dl (0.61-1.60)
--- NOTE | 2022-06-28 20:36 | CT Scan Report ---
Exam(s): CT HEAD Without Contrast EXAM: CT Head Without Intravenous Contrast CLINICAL HISTORY: Reason for exam: confusion. TECHNIQUE: Axial computed tomography images of the head/brain without intravenous contrast. Automated exposure control was utilized for the study. A dose lowering technique was utilized adhering to the principles of ALARA. COMPARISON: No relevant prior studies available. FINDINGS: No acute intracranial hemorrhage. No midline shift or mass effect. The territorial dougherty-white matter differentiation is maintained throughout. Embolization coil. Age-related cerebral volume loss. Periventricular and subcortical white matter hypoattenuation, consistent with chronic microangiopathy. The visualized orbits appear grossly unremarkable. The calvarium is intact. The visualized paranasal sinuses and mastoid air cells are grossly clear. IMPRESSION: No acute intracranial hemorrhage, midline shift, or mass effect. Embolization coil. Electronically signed by: Adama Marcial MD 06/28/22 20:34 PM
--- NOTE | 2022-06-28 20:37 | CT Scan Report ---
Exam(s): CT ABDOMEN + PELVIS Without Contrast EXAM: CT Abdomen and Pelvis Without Intravenous Contrast CLINICAL HISTORY: Reason for exam: mid ab pain. TECHNIQUE: Axial computed tomography images of the abdomen and pelvis without intravenous contrast. Automated exposure control was utilized for the study. A dose lowering technique was utilized adhering to the principles of ALARA. COMPARISON: No relevant prior studies available. FINDINGS: Lung bases: Unremarkable. No mass. No consolidation. Heart: Cardiomegaly. ABDOMEN: Liver: Unremarkable. No focal hepatic lesion. Gallbladder and bile ducts: Unremarkable. No calcified stones. No ductal dilation. Pancreas: Unremarkable. No ductal dilation. Spleen: Unremarkable. No splenomegaly. Adrenals: Unremarkable. No mass. Kidneys and ureters: Unremarkable. No hydronephrosis or nephrolithiasis. Stomach and bowel: Diverticulosis, without acute diverticulitis. No small bowel obstruction. No free intraperitoneal air. PELVIS: Appendix: Normal appendix. Bladder: Decompressed urinary bladder. No stones. Reproductive: Unremarkable as visualized. ABDOMEN and PELVIS: Intraperitoneal space: Unremarkable. No free air. No significant fluid collection. Bones/joints: Degenerative changes of the spine. No acute fracture. No dislocation. Soft tissues: Unremarkable. Vasculature: Atherosclerotic changes of the aorta. No abdominal aortic aneurysm. Lymph nodes: Unremarkable. No enlarged lymph nodes. IMPRESSION: No acute findings in the abdomen or pelvis. Electronically signed by: Adama Marcial MD 06/28/22 20:36 PM
[2022-06-28 22:13] LABS: Appearance Urine Cloudy (Clear); Bacteria Urine Automated 4+ (Negative); Bilirubin Urine Negative (Negative); Blood Urine Trace (Negative); Color Urine Dark Yellow; Glucose Urine UA Negative (Negative); Ketones Urine Trace (Negative); Leukocyte Esterase Urine 2+ (Negative); Nitrite Urine Positive (Negative); Protein Urine 1+ (Negative); Specific Gravity Urine 1.023 (1.000-1.030); Urobilinogen Urine Negative (Negative); WBC Urine Automated >30 /hpf (0-5)
[2022-06-28 22:30] LABS: Cast Urine Automated >30 /lpf (0-5)
--- NOTE | 2022-06-28 23:30 | History & Physical Report ---
Date of Service June 28, 2022 Assessment & Plan (1) Near syncope: Plan: 86 y/o F w/ PmHx CAD, CKD, dementia, carotid stenosis b/l, T2DM, hypothyroidism, HTN, NSTEMI, TIA, recurrent UTI admitted for near syncope and concern for UTI. Near Syncope/Dehydration/UTI: -CBC unremarkable, -troponin 117.3, TSH 26.028, Free T4 1.09, creatinine 1.74, eGFR 34.5. -U/A w/ Nitrite, LE, Bacteria, blood, protein. Urine culture pending. -CT head and A&P negative for acute processes. -Most likely near syncope and fatigue from underlying UTI. -Elevated troponin most likely demand ischemia from dehydration/near syncope. -Holding Macrobid due to past resistance. Will likely benefit from further discussion with urologist outpatient on prophlyactic antibiotic. -Sulfa/bactrim allergy - had success with Keflex in November with sensitivities at that time only resistant to Macrobid. -IVF rehydration w/ LR at 125ml/hr -Orthostatics ordered. -PT/OT eval and treat. Patient's daughter said they would not want patient to go to nursing facility, they would want her to go straight home after discharge since they have good care there. -Tylenol PRN for pain. -Admit to med/surg. CAD/Hx NSTEMI/HTN/Hx TIA: -Continue home ASA 81mg daily, clopidogrel 75mg daily, isosorbide mononitrate 30mg qAM, metoprolol 25mg daily. -Holding lisinopril-hydrochlorothiazide in setting of VLAD. Hypothyroidism: -Continue home levothyroxine. Anxiety: -Continue home escitalopram. -Daughter had brought up possible need for acute PRN anxiolytic since that sends her mom 'into tizzies' at times. -May trial hydroxyzine if patient acutely anxious. Dementia: -Continue home memantine. T2DM: -Not on any home medications for diabetes. Last A1c 07/2021 6.0. -Can continue to monitor glucose with checks, if elevated can add SSI and long acting. F/E/N/GI: Regular diet. DVT Prophylaxis: SCDs Code status: Full code, call daughter or son. Dispo: Med/tele. Patient's daughter stated she would like patient to go directly home after hospital stay and not to nursing facility. Patient has 2 caretakers at home that the daughter says are extremely helpful. (2) CAD (coronary artery disease): (3) CKD (chronic kidney disease): (4) Dementia: (5) T2DM (type 2 diabetes mellitus): (6) Hypothyroid: (7) Hypertension: (8) History of non-ST elevation myocardial infarction (NSTEMI): (9) History of TIA (transient ischemic attack): (10) Recurrent UTI: (11) Dehydration: History of Present Illness Chief Complaint: Near syncope Primary Care Provider: Lorena Boyd Brandi Wall is an 86 year old F w/ PmHx CAD, CKD, dementia, carotid stenosis b/l, T2DM, hypothyroidism, HTN, NSTEMI, TIA, recurrent UTI coming in to the ED for near syncopal event and concern for UTI earlier in the day. Patient's daughter at the bedside providing most history due to patient's hard hearing and dementia. Earlier in the day patient was told to use her bedside commode for fecal output, patient did not want to use after 30 minutes of sitting on the commode. While on the commode she started to roll her head around like she was feeling lightheaded. She did not pass out but daughter stated it looked like she was near syncopal. She had slowly regained her composure over the next few hours. Earlier in the day she was more sleepy/tired than usual. She was sleeping more and so did not drink as much and unable to stay as hydrated, only drinking a couple cups of coffee. EMS did a neuro exam on the patient when they arrived and did not find any focal deficits. She states her mother has a history of recurrent UTIs in the past for which she sees Dr. Vanegas for outpatient. Last year she was placed on macrobid and methenamine daily which had kept her UTI's under good control. She has not had any fevers, chills, shortness of breath, vomiting. Daughter said her mother's urine usually shows protein and blood, however does not usually show LE if there is not an infection present. In the ED CBC unremarkable, Creatinine 1.74, eGFR 34.5, troponin 117.3, TSH 26.028, Free T4 1.09. Urine cloudy, protein, blood, nitrite, LE, WBC, bacteria. CT head and CT A&P without any acute processes. CXR without acute cardiopulm process. XR femur, hip, tibia/fibula without acute bony abnormality seen (however will wait for radiology readin to confirm). Allergies Allergy/AdvReac Type Severity Reaction Status Date / Time cefpodoxime [From Vantin] Allergy Unknown Unknown Verified 06/29/22 07:43 Sulfa (Sulfonamide Allergy Unknown Unknown Verified 06/29/22 07:43 Antibiotics) sulfamethoxazole Allergy Rash Verified 06/29/22 07:43 [From Bactrim] trimethoprim [From Bactrim] Allergy Rash Verified 06/29/22 07:43 Home Medications Medication Instructions Recorded Confirmed Type acetaminophen 500 mg tablet 1,000 mg PO DIRECTED PRN Pain 09/02/21 12/19/21 History (Tylenol Extra Strength) diclofenac sodium 1 % topical gel 4 g topical QID PRN Pain 09/02/21 12/19/21 History turmeric root extract 500 mg 500 mg PO DAILY 09/02/21 12/19/21 History capsule aspirin 81 mg chewable tablet 81 mg PO DAILY 06/28/22 06/28/22 History atorvastatin 40 mg tablet 40 mg PO HS 06/28/22 06/28/22 History clopidogrel 75 mg tablet 75 mg PO DAILY 06/28/22 06/28/22 History escitalopram oxalate 20 mg tablet 20 mg PO DAILY 06/28/22 06/28/22 History isosorbide mononitrate 30 mg 30 mg PO QAM 06/28/22 06/28/22 History tablet,extended release 24 hr levothyroxine 137 mcg tablet 137 mcg PO DAILY 06/28/22 06/28/22 History lisinopril 10 1 tab PO DAILY 06/28/22 06/28/22 History mg-hydrochlorothiazide 12.5 mg tablet memantine 10 mg tablet 10 mg PO BID 06/28/22 06/28/22 History methenamine hippurate 1 gram tablet 1 g PO QAM 06/28/22 06/28/22 History metoprolol succinate 25 mg 25 mg PO DAILY 06/28/22 06/28/22 History tablet,extended release 24 hr nitrofurantoin macrocrystal 50 mg 50 mg PO DAILY 06/28/22 06/28/22 History capsule pantoprazole 40 mg tablet,delayed 40 mg PO QAM 06/28/22 06/28/22 History release sucralfate 1 gram tablet 1 g PO HS 06/28/22 06/28/22 History ciprofloxacin HCl 250 mg tablet 250 mg PO BID #11 tabs 06/30/22 Rx Past Med/Surg History Medical History Acute confusion Acute kidney injury CAD (coronary artery disease) Carotid stenosis, bilateral Chest pain Chronic kidney disease Confusion Dementia Diabetes DVT prophylaxis Dyslipidemia Elevated troponin Elevated troponin History of CVA with residual deficit HTN (hypertension) Hypertension Hypothyroidism Non-ST elevation (NSTEMI) myocardial infarction NSTEMI (non-ST elevated myocardial infarction) Osteoarthritis of right knee Retrosternal chest pain T2DM (type 2 diabetes mellitus) UTI (urinary tract infection) Surgical History History of cataract surgery Family History Mother , age 69 with heart disease No problems noted. Father No problems noted. Other Family history non-contributory Social History Smoking Status: Never smoker Hx Alcohol Use: No Hx Substance Use: No Preferred Language: Macedonian Communication Ability: Impaired Communication Ability Comment: Patient is only alert and oriented to person only Quality Control Lab Tech Required: No Beliefs That Will Affect Care: None marital status: / Current Living Situation: Spouse and Family Current Living Situation Comment: Patient lives with her son, but her daughter and son in law also help How many Children do You have: 2 Feels Safe at Home: Yes Assistive Devices: Bedside Commode, Hospital Bed, Walker and Wheelchair Review of Systems Review of Systems: As per HPI. Physical Exam Constitutional: WD/WN, vitals as above Eyes: Pupils constricted, no focal ocular deficits. Respiratory: normal respiratory effort, lungs clear to auscultation Cardiovascular: RRR, no murmur, no edema Gastrointestinal (Abdomen): normal bowel sounds, soft, nontender, no hepatosplenomegaly Psychiatric: Oriented to person and place. Results & Data Results & Data Vital Signs (Past 12 Hours) Vital Signs Temp Pulse Resp BP Pulse Ox O2 Del Method 06/28/22 23:01 71 24 113/87 98 06/28/22 21:31 69 24 124/87 95 06/28/22 21:00 57 L 18 132/60 06/28/22 22:00 68 06/28/22 20:35 62 18 145/113 H 98 06/28/22 20:12 96 Room Air 06/28/22 19:21 96 Room Air 06/28/22 18:38 36.7 C 70 18 152/61 H 98 Room Air 06/28/22 18:38 74 Supervising Physician Co-Signing Physician Notes Attending addendum: I have physically seen this patient, have supervised the medical residents letty austin, and agree with the H&P unless as otherwise noted. Assessment and Plan: Near syncope- Likely secondary to combination of urinary tract infection and dehydration- Follow urine culture and sensitivity Lactated Ringer's at 125 mils per hour Antibiotics as noted CAD/history of STEMI/hypertension/history of TIA- Continue aspirin, clopidogrel, isosorbide mononitrate and metoprolol Hold lisinopril/HCTZ Acute kidney injury- LR at 125 mils per hour as noted Creatinine 1.74 on admission Follow with serial laboratories Anxiety- Continue escitalopram Hypothyroidism- Continue levothyroxine Remaining orders and notations as noted Resident Activity Tracking Resident Involvement: Resident Care Provided Care Provided: Adult Hospital Medicine
[2022-06-29] MEDS ORDERED: POLYETHYLENE (MIRALAX) 17 GM PACK PO PRN (00:50)
[2022-06-29] MEDS ORDERED: ONDANSETRON INJ 2 MG/ML 2 ML VIAL IV PRN (00:50)
[2022-06-29] MEDS ORDERED: ACETAMINOPHEN 325 MG TAB PO PRN (00:50)
[2022-06-29] MEDS: LACTATED RINGER'S 1,000 ML IV SCH ×2 (01:06→11:19)
[2022-06-29] MEDS: cephALEXin 250 MG CAP PO SCH ×2 (01:21→08:00)
[2022-06-29] MEDS ORDERED: PNEUMOCOCCAL Polysaccharide Vaccine 25mcg/0.5mL vial/Syr IM ONE (02:00)
[2022-06-29] MEDS: LEVOTHYROXINE SODIUM 137 MCG TABLET PO SCH (06:24)
--- NOTE | 2022-06-29 07:41 | XRay Report ---
LEFT TIBIA AND FIBULA 2 VIEWS CLINICAL HISTORY: Left lower extremity ecchymosis. FINDINGS: AP and crosstable lateral views of the left tibia and fibula are obtained. No prior studies are available for comparison at the time of dictation. The skeletal structures are osteopenic. There is no radiographic evidence of left tibial or fibular fracture. Degenerative change is noted in the knee. The ankle joint appears maintained. Mild soft tissue swelling and phleboliths are noted in the calf. IMPRESSION: No acute bony abnormality is identified. Electronically signed by: Carlos Atwood M.D. 06/29/2022 7:40 AM
--- NOTE | 2022-06-29 07:42 | XRay Report ---
SINGLE VIEW CHEST CLINICAL HISTORY: Generalized weakness. Dementia. FINDINGS: An AP, portable, upright chest radiograph is obtained. No prior studies are available for c omparison at the time of dictation. The heart is mildly enlarged noting atherosclerotic calcification of the thoracic aorta. The pulmonary vasculature is noncongested. Chronic interstitial thickening is similar to previous. There is bibasilar scarring/atelectasis. The lungs and pleural spaces are other sanchez clear. No pneumothorax is seen. The skeletal structures are osteopenic. The bony thorax is gross ly intact. IMPRESSION: Cardiomegaly with no acute cardiopulmonary abnormality. ACT 112: Negative or not required by law. Electronically signed by: Carlos Atwood M.D. 06/29/2022 7:41 AM
--- NOTE | 2022-06-29 07:47 | XRay Report ---
SINGLE VIEW PELVIS; 3 VIEWS RIGHT FEMUR CLINICAL HISTORY: Right leg pain. Dementia. FINDINGS: An AP supine view of the pelvis with AP, frog-leg, and crosstable lateral views of the righ t femur are obtained. Comparison is made to study dated 01/31/2021. The skeletal structures are osteop enic. There is no radiographic evidence of acute fracture involving the hips or bony pelvis. There is no radiographic evidence of right femoral fracture. Fzra-wo-luhdhvnd arthritic change and joint spac e narrowing is seen in the hips. There is no radiographic evidence of avascular necrosis the femoral heads. Sclerotic change is noted in the sacroiliac joints. Lumbosacral spondylosis is partially visua lized. The right knee joint is grossly maintained noting arthritic change. The overlying soft tissues are normal in appearance. IMPRESSION: 1. No acute bony abnormality is seen involving the hips or pelvis. 2. There is no radiographic evidence of right femoral fracture. Electronically signed by: Carlos Atwood M.D. 06/29/2022 7:46 AM
[2022-06-29 07:50] LABS: Basophils # (auto) 0.04 K/uL (0-0.2); Basophils % (auto) 0.5 %; Eosinophils # (auto) 0.35 K/uL (0-0.50); Eosinophils % (auto) 4.6 %; Hematocrit (blood only) 30.3 % (37.0-47.0); Hemoglobin 9.9 g/dl (12.0-16.0); Immature Granulocytes # (auto) 0.02 K/uL (0.01-0.20); Immature Granulocytes % (auto) 0.3 %; Lymphocytes # (auto) 1.95 K/uL (1.2-3.4); Lymphocytes % (auto) 25.4 %; Mean Corpuscular Hemoglobin 28.1 pg (25.0-34.0); Mean Corpuscular Hgb Conc 32.7 g/dL (32.0-36.0); Mean Corpuscular Volume 86.1 fL (80.0-100.0); Mean Platelet Volume 10.6 fL (9.4-12.4); Monocytes # (auto) 0.86 K/uL (0.11-0.59); Monocytes % (auto) 11.2 %; Neutrophils # (auto) 4.47 K/uL (1.40-6.50); Platelet Count 216 K/uL (130-400); RDW Coefficient of Variation 14.2 % (11.5-14.5); RDW Standard Deviation 44.5 fL (36.4-46.3); Red Blood Count 3.52 M/uL (4.20-5.40); White Blood Count 7.69 K/ul (4.8-10.8)
[2022-06-29 08:12] LABS: BUN Creatinine Ratio 30.1 (10-20); Calcium 8.9 mg/dl (8.6-10.3); Creatinine Clr Calc Pharmacy 27.5 ml/min; Est GFR (African American) 38.1 ml/min; Est GFR (Non-African American) 32.8 ml/min; Potassium 4.1 mmol/L (3.5-5.1)
[2022-06-29 08:21] LABS: Troponin I High Sensitivity 117.8 pg/ml (0-14)
[2022-06-29] MEDS: MEMANTINE HCL 10 MG TAB PO SCH ×2 (09:05→21:05)
[2022-06-29] MEDS: METHENAMINE HIPPURATE 1 GM TAB PO SCH (09:05)
[2022-06-29] MEDS: PANTOprazole 40 MG TAB PO SCH (09:05)
[2022-06-29] MEDS: METOPROLOL SUCC 25MG EXT REL TAB PO SCH (09:05)
[2022-06-29] MEDS: CLOPIDOGREL BISULFATE 75 MG TAB PO SCH (09:05)
[2022-06-29] MEDS: ASPIRIN 81 MG ECTAB PO SCH (09:05)
[2022-06-29] MEDS: ISOSORBIDE MONO EXTENDED REL 30 MG TABCR PO SCH (09:06)
[2022-06-29] MEDS: ESCITALOPRAM OXALATE 20 MG TAB PO SCH (09:06)
[2022-06-29] MEDS: CIPROFLOXACIN / D5W 200 MG/100 ML BAG IV SCH ×2 (09:40→21:06)
--- NOTE | 2022-06-29 14:14 | Hospitalist Progress Note ---
Date of Service June 29, 2022 Assessment & Plan (1) Near syncope: Plan: Acute/stable - Near syncopal event reported by daughter while on commode - No further evidence of near syncope/syncope since admission - Suspect multifactorial in the setting of dehydration, vlad, and UTI - Did have an elevated HS trop of 117.3 which likely represents myocardial demand ischemia in setting of dehydration, vlad, uti (2) Recurrent UTI: Plan: Acute/recurrent - Reviewed UA which appears infected, nitrite positive, 2+ LE, >30 WBCs, and 4+ bacteria - Urine culture and blood cultures are pending - Reviewed cbc, no leukocytosis present - Ordered Keflex by admitting provider, changed to Cipro based on documented allergies - Last UTI was e. coli in Nov 2021 which was resistant ONLY to macrobid - Continue Urex (3) CKD (chronic kidney disease): Plan: VLAD on CKD/stable - Appears baseline creatinine ~1.1-1.3 - Admitting creatinine 1.74, chemistry panel reviewed today, creatinine improved to 1.43 with fluids - Reduce fluid rate to 100 ml/hr given her advance age to prevent volume overload - Renally adjust meds when appropriate - Continue holding lisinopril/hctz (4) Dementia: Plan: Chronic/stable - According to documentation she seemed more lethargic/sleepier than usual, po ssibly secondary to metabolic encephalopathy in setting of acute UTI - Continue memantine - Reinforce sleep/wake cycles to prevent hospital acquired delirium (5) Hypertension: Plan: h/o CAD/HTN/HLD/HI Chronic/stable - BP stable at 131/57 despite holding lisinopril/hctz - Continue metoprolol succinate 25mg daily, Atorvastatin, ASA, and Plavix Plan Plan as outlined above. Repeat labs in AM. PT/OT evals ordered. PT recommending SNF. According to H&P, daughter wants patient to go home upon discharge and not to SNF. Attempted to call the patient's daughter and son who are both listed as contacts and neither answered, went to voicemail for both. Plan to be d/w Dr. Soriano. Admission and Anticipated Discharge Date Admission Date: June 28, 2022 Subjective Patient seen on daily rounds this morning. She is pleasantly confused, reports no complaints. Denies chest pain or dyspnea. Was working with PT at the time of my assessment. Physical Exam Physical Exam: GENERAL: 86 yo well-developed, well-nourished elderly WF. AAOx1. NAD. LUNGS: Clear to auscultation bilaterally w/o W/R/R. CARDIOVASCULAR: Regular rate and rhythm. ABDOMEN: Soft, non-tender and non-distended. BS normoactive x 4 quad. EXTREMITIES: No edema. Non-tender. Peripheral pulses +2/4. Results & Data Results & Data Vital Signs (Past 12 Hours) Vital Signs Temp Pulse Pulse Resp BP Pulse Ox O2 Del Method 06/29/22 12:04 36.4 C L 57 L 18 131/57 L 97 Room Air 06/29/22 07:54 37.2 C 67 18 106/46 L 96 Room Air 06/29/22 07:46 65 Laboratory Results 06/29/22 07:01 06/29/22 07:01 PG Care Time/CCT Total # of Minutes Spent Total Time Spent with Patient: Total time spent is greater than 50% in coordination of care (as documented) at patient's floor/unit and/or counseling patient: Coding Level of Care Code 17929 SUB INP/OBS CARE 2/35MIN Diagnoses Near syncope R55 Recurrent UTI N39.0 CKD (chronic kidney disease) N18.9 Dementia F03.90 Dementia behavioral disturbance: without behavioral disturbance Dementia type: unspecified type Hypertension I10 (4) Dementia Dementia behavioral disturbance: without behavioral disturbance Dementia type: unspecified type Qualified Code(s): F03.90 - Unspecified dementia without behavioral disturbance
[2022-06-29] MEDS ORDERED: ATORVASTATIN 40 MG TAB PO SCH (21:00)
[2022-06-29] MEDS ORDERED: SUCRALFATE 1 GM TAB PO SCH (21:00)
[2022-06-30] MEDS: LEVOTHYROXINE SODIUM 137 MCG TABLET PO SCH (06:16)
[2022-06-30 07:49] LABS: Basophils # (auto) 0.04 K/uL (0-0.2); Basophils % (auto) 0.6 %; Eosinophils # (auto) 0.45 K/uL (0-0.50); Eosinophils % (auto) 6.4 %; Hematocrit (blood only) 31.1 % (37.0-47.0); Hemoglobin 10.3 g/dl (12.0-16.0); Immature Granulocytes # (auto) 0.02 K/uL (0.01-0.20); Immature Granulocytes % (auto) 0.3 %; Lymphocytes # (auto) 1.51 K/uL (1.2-3.4); Lymphocytes % (auto) 21.4 %; Mean Corpuscular Hemoglobin 28.6 pg (25.0-34.0); Mean Corpuscular Hgb Conc 33.1 g/dL (32.0-36.0); Mean Corpuscular Volume 86.4 fL (80.0-100.0); Mean Platelet Volume 10.6 fL (9.4-12.4); Monocytes # (auto) 0.72 K/uL (0.11-0.59); Monocytes % (auto) 10.2 %; Neutrophils # (auto) 4.33 K/uL (1.40-6.50); Neutrophils % (auto) 61.1 %; Platelet Count 206 K/uL (130-400); RDW Coefficient of Variation 13.9 % (11.5-14.5); RDW Standard Deviation 43.3 fL (36.4-46.3); White Blood Count 7.07 K/ul (4.8-10.8)
[2022-06-30 08:20] LABS: BUN Creatinine Ratio 23.4 (10-20); Calcium 9.1 mg/dl (8.6-10.3); Creatinine Clr Calc Pharmacy 28.7 ml/min; Est GFR (African American) 40.1 ml/min; Est GFR (Non-African American) 34.6 ml/min
[2022-06-30] MEDS: ISOSORBIDE MONO EXTENDED REL 30 MG TABCR PO SCH (08:53)
[2022-06-30] MEDS: METOPROLOL SUCC 25MG EXT REL TAB PO SCH (08:53)
[2022-06-30] MEDS: PANTOprazole 40 MG TAB PO SCH (08:53)
[2022-06-30] MEDS: CLOPIDOGREL BISULFATE 75 MG TAB PO SCH (08:53)
[2022-06-30] MEDS: MEMANTINE HCL 10 MG TAB PO SCH (08:53)
[2022-06-30] MEDS: METHENAMINE HIPPURATE 1 GM TAB PO SCH (08:53)
[2022-06-30] MEDS: ESCITALOPRAM OXALATE 20 MG TAB PO SCH (08:53)
[2022-06-30] MEDS: CIPROFLOXACIN / D5W 200 MG/100 ML BAG IV SCH (08:54)
[2022-06-30] MEDS: ASPIRIN 81 MG ECTAB PO SCH (08:54)
--- NOTE | 2022-06-30 10:43 | Electrocardiogram Report ---
Test Reason : Blood Pressure : / mmHG Vent. Rate : 066 BPM Atrial Rate : 066 BPM P-R Int : 186 ms QRS Dur : 102 ms QT Int : 424 ms P-R-T Axes : 051 -13 030 degrees QTc Int : 444 ms Poor data quality, interpretation may be adversely affected Normal sinus rhythm Normal ECG No previous ECGs available Confirmed by Gabriel Mario ([id number]) on 06/30/2022 10:42:33 AM Referred By: REFERRED SELF Confirmed By:Gabriel Mario
--- NOTE | 2022-06-30 13:50 | Discharge Summary ---
Date of Service June 30, 2022 Admission HPI Per Admitting Provider Mae is an 86 year old F w/ PmHx CAD, CKD, dementia, carotid stenosis b/l, T2DM, hypothyroidism, HTN, NSTEMI, TIA, recurrent UTI coming in to the ED for near syncopal event and concern for UTI earlier in the day. Patient's daughter at the bedside providing most history due to patient's hard hearing and dementia. Earlier in the day patient was told to use her bedside commode for fecal output, patient did not want to use after 30 minutes of sitting on the commode. While on the commode she started to roll her head around like she was feeling lightheaded. She did not pass out but daughter stated it looked like she was near syncopal. She had slowly regained her composure over the next few hours. Earlier in the day she was more sleepy/tired than usual. She was sleeping more and so did not drink as much and unable to stay as hydrated, only drinking a couple cups of coffee. EMS did a neuro exam on the patient when they arrived and did not find any focal deficits. She states her mother has a history of recurrent UTIs in the past for which she sees Dr. Vanegas for outpatient. Last year she was placed on macrobid and methenamine daily which had kept her UTI's under good control. She has not had any fevers, chills, shortness of breath, vomiting. Daughter said her mother's urine usually shows protein and blood, however does not usually show LE if there is not an infection present. In the ED CBC unremarkable, Creatinine 1.74, eGFR 34.5, troponin 117.3, TSH 26.028, Free T4 1.09. Urine cloudy, protein, blood, nitrite, LE, WBC, bacteria. CT head and CT A&P without any acute processes. CXR without acute cardiopulm process. XR femur, hip, tibia/fibula without acute bony abnormality seen (however will wait for radiology readin to confirm). Principal Diagnosis 1. Near syncope, likely vasovagal d/t dehydration 2. VLAD on CKD again d/t dehydration 3. Recurrent UTI 4. Elevated troponin d/t myocardial demand ischemia Discharge Exam GENERAL: 86 yo well-developed, well-nourished elderly WF. AAOx2. NAD. LUNGS: Clear to auscultation bilaterally w/o W/R/R. CARDIOVASCULAR: Regular rate and rhythm. ABDOMEN: Soft, non-tender and non-distended. BS normoactive x 4 quad. EXTREMITIES: No edema. Non-tender. Peripheral pulses +2/4. Discharge Data Allergies Allergy/AdvReac Type Severity Reaction Status Date / Time cefpodoxime [From Vantin] Allergy Unknown Unknown Verified 06/29/22 07:43 Sulfa (Sulfonamide Allergy Unknown Unknown Verified 06/29/22 07:43 Antibiotics) sulfamethoxazole Allergy Rash Verified 06/29/22 07:43 [From Bactrim] trimethoprim [From Bactrim] Allergy Rash Verified 06/29/22 07:43 Consultations 06/28/22 22:10 ED Decision to Admit Stat Ordered Studies Chest X-Ray 06/28/22 18:47 SINGLE VIEW CHEST CLINICAL HISTORY: Generalized weakness. Dementia. FINDINGS: An AP, portable, upright chest radiograph is obtained. No prior studies are available for comparison at the time of dictation. The heart is mildly enlarged noting atherosclerotic calcification of the thoracic aorta. The pulmonary vasculature is noncongested. Chronic interstitial thickening is similar to previous. There is bibasilar scarring/atelectasis. The lungs and pleural spaces are otherwise clear. No pneumothorax is seen. The skeletal structures are osteopenic. The bony thorax is grossly intact. IMPRESSION: Cardiomegaly with no acute cardiopulmonary abnormality. ACT 112: Negative or not required by law. Electronically signed by: Carlos Atwood M.D. 06/29/2022 7:41 AM Femur X-Ray 06/28/22 18:47 SINGLE VIEW PELVIS; 3 VIEWS RIGHT FEMUR CLINICAL HISTORY: Right leg pain. Dementia. FINDINGS: An AP supine view of the pelvis with AP, frog-leg, and crosstable lateral views of the right femur are obtained. Comparison is made to study dated 01/31/2021. The skeletal structures are osteopenic. There is no radiographic evidence of acute fracture involving the hips or bony pelvis. There is no radiographic evidence of right femoral fracture. Xolu-qi-xaeuiqck arthritic change and joint space narrowing is seen in the hips. There is no radiographic evidence of avascular necrosis the femoral heads. Sclerotic change is noted in the sacroiliac joints. Lumbosacral spondylosis is partially visualized. The right knee joint is grossly maintained noting arthritic change. The overlying soft tissues are normal in appearance. IMPRESSION: 1. No acute bony abnormality is seen involving the hips or pelvis. 2. There is no radiographic evidence of right femoral fracture. Electronically signed by: Carlos Atwood M.D. 06/29/2022 7:[address] 06/28/22 18:47 Exam(s): CT HEAD Without Contrast EXAM: CT Head Without Intravenous Contrast CLINICAL HISTORY: Reason for exam: confusion. TECHNIQUE: Axial computed tomography images of the head/brain without intravenous contrast. Automated exposure control was utilized for the study. A dose lowering technique was utilized adhering to the principles of ALARA. COMPARISON: No relevant prior studies available. FINDINGS: No acute intracranial hemorrhage. No midline shift or mass effect. The territorial dougherty-white matter differentiation is maintained throughout. Embolization coil. Age-related cerebral volume loss. Periventricular and subcortical white matter hypoattenuation, consistent with chronic microangiopathy. The visualized orbits appear grossly unremarkable. The calvarium is intact. The visualized paranasal sinuses and mastoid air cells are grossly clear. IMPRESSION: No acute intracranial hemorrhage, midline shift, or mass effect. Embolization coil. Electronically signed by: Adama Marcial MD 06/28/22 20:34 PM Pelvis X-Ray 06/28/22 18:47 SINGLE VIEW PELVIS; 3 VIEWS RIGHT FEMUR CLINICAL HISTORY: Right leg pain. Dementia. FINDINGS: An AP supine view of the pelvis with AP, frog-leg, and crosstable lateral views of the right femur are obtained. Comparison is made to study dated 01/31/2021. The skeletal structures are osteopenic. There is no radiographic evidence of acute fracture involving the hips or bony pelvis. There is no radiographic evidence of right femoral fracture. Hwmt-cw-omcsobcx arthritic change and joint space narrowing is seen in the hips. There is no radiographic evidence of avascular necrosis the femoral heads. Sclerotic change is noted in the sacroiliac joints. Lumbosacral spondylosis is partially visualized. The right knee joint is grossly maintained noting arthritic change. The overlying soft tissues are normal in appearance. IMPRESSION: 1. No acute bony abnormality is seen involving the hips or pelvis. 2. There is no radiographic evidence of right femoral fracture. Electronically signed by: Carlos Atwood M.D. 06/29/2022 7:46 AM Tibia/Fibula X-Ray 06/28/22 18:47 LEFT TIBIA AND FIBULA 2 VIEWS CLINICAL HISTORY: Left lower extremity ecchymosis. FINDINGS: AP and crosstable lateral views of the left tibia and fibula are obtained. No prior studies are available for comparison at the time of dictation. The skeletal structures are osteopenic. There is no radiographic evidence of left tibial or fibular fracture. Degenerative change is noted in the knee. The ankle joint appears maintained. Mild soft tissue swelling and phleboliths are noted in the calf. IMPRESSION: No acute bony abnormality is identified. Electronically signed by: Carlos Atwood M.D. 06/29/2022 7:40 AM Abdomen/Pelvis CT 06/28/22 20:01 Exam(s): CT ABDOMEN + PELVIS Without Contrast EXAM: CT Abdomen and Pelvis Without Intravenous Contrast CLINICAL HISTORY: Reason for exam: mid ab pain. TECHNIQUE: Axial computed tomography images of the abdomen and pelvis without intravenous contrast. Automated exposure control was utilized for the study. A dose lowering technique was utilized adhering to the principles of ALARA. COMPARISON: No relevant prior studies available. FINDINGS: Lung bases: Unremarkable. No mass. No consolidation. Heart: Cardiomegaly. ABDOMEN: Liver: Unremarkable. No focal hepatic lesion. Gallbladder and bile ducts: Unremarkable. No calcified stones. No ductal dilation. Pancreas: Unremarkable. No ductal dilation. Spleen: Unremarkable. No splenomegaly. Adrenals: Unremarkable. No mass. Kidneys and ureters: Unremarkable. No hydronephrosis or nephrolithiasis. Stomach and bowel: Diverticulosis, without acute diverticulitis. No small bowel obstruction. No free intraperitoneal air. PELVIS: Appendix: Normal appendix. Bladder: Decompressed urinary bladder. No stones. Reproductive: Unremarkable as visualized. ABDOMEN and PELVIS: Intraperitoneal space: Unremarkable. No free air. No significant fluid collection. Bones/joints: Degenerative changes of the spine. No acute fracture. No dislocation. Soft tissues: Unremarkable. Vasculature: Atherosclerotic changes of the aorta. No abdominal aortic aneurysm. Lymph nodes: Unremarkable. No enlarged lymph nodes. IMPRESSION: No acute findings in the abdomen or pelvis. Electronically signed by: Adama Marcial MD 06/28/22 20:36 PM Hospital Course (1) Near syncope: Acute/stable - Near syncopal event reported by daughter while on commode - likely vasovagal - No further evidence of near syncope/syncope since admission - Suspect multifactorial in the setting of dehydration, vlad, and UTI - Did have an elevated HS trop of 117.3 which likely represents myocardial demand ischemia in setting of dehydration, vlad, uti (2) Recurrent UTI: Acute/recurrent - Reviewed UA which appears infected, nitrite positive, 2+ LE, >30 WBCs, and 4+ bacteria - Urine culture growing GNB (prelim) - Blood cultures not drawn and at this time would be sterilized d/t receiving IV abx - Reviewed cbc, no leukocytosis present - Ordered Keflex by admitting provider, changed to Cipro based on documented allergies - Last UTI was e. coli in Nov 2021 which was resistant ONLY to macrobid - Continue Urex and will change to oral Cipro 250mg BID x 5 more days for total of 7 days d/t h/o recurrent UTIs (3) CKD (chronic kidney disease): VLAD on CKD/stable - Appears baseline creatinine ~1.1-1.3 - Admitting creatinine 1.74, chemistry panel reviewed today, creatinine improved to 1.43 with fluids - Hydrated with LR - creatinine has returned to baseline at 1.37 - Renally adjust meds when appropriate - Can resume Lisinopril/HCTZ upon discharge (4) Dementia: Chronic/stable - According to documentation she seemed more lethargic/sleepier than usual, possibly secondary to metabolic encephalopathy in setting of acute UTI - Continue memantine - Reinforce sleep/wake cycles to prevent hospital acquired delirium (5) Hypertension: h/o CAD/HTN/HLD/NM Chronic/stable - BP stable at 131/57 despite holding lisinopril/hctz - Continue metoprolol succinate 25mg daily, Atorvastatin, ASA, and Plavix - Now that renal fxn has returned to baseline, can resume lisinopril/hctz Plan Patient is medically and hemodynamically stable for discharge on continued course of oral antibiotics for UTI and outpatient f/u with her pcp. PT/OT evals completed and recommended SNF but patient's daughter declines SNF and wants pt to return home where she is in the care of 2 caregivers. Subsequently, she will be discharged home at daughter's request. Daughter will transport. Provided update to her this AM over the phone. Plan has been d/w Dr. Soriano who is in agreement with [facility]. Total Time Total Time Spent Total Time Spent (In Minutes): >30 minutes Discharge Plan Discharge Items Patient Disposition: Home - Home Health Services Reason For Visit: NEAR SYNCOPE, DEHYDRATION, UTI Discharge Diagnosis: near syncope dehydration urinary tract infection Activity: Resume your previous activity Follow-up/Referrals: Lorena Paz [Primary Care Provider] - Stand-Alone Forms: My [facility] [address], Smoking Cessation Medications and DC Order Prescriptions: No Action methenamine hippurate 1 gram tablet 1 g PO QAM Qty: 30 5RF nitrofurantoin macrocrystal 50 mg capsule 50 mg PO DAILY Qty: 90 1RF atorvastatin [Lipitor] 40 mg tablet 40 mg PO HS Qty: 30 0RF isosorbide mononitrate 30 mg tablet extended release 24 hr 30 mg PO QAM 30 Days Qty: 30 0RF clopidogrel 75 mg Tablet 75 mg PO QAM Qty: 30 3RF nitroglycerin [Nitrostat] 0.4 mg Tablet, Sublingual 0.4 mg sublingual UD PRN (Reason: chest pain) Qty: 14 0RF acetaminophen [Tylenol Extra Strength] 500 mg Tablet 1,000 mg PO DIRECTED PRN (Reason: Pain) diclofenac sodium [Voltaren] 1 % Gel 4 g TOPICAL QID PRN (Reason: Pain) turmeric root extract 500 mg Capsule 500 mg PO DAILY pantoprazole 40 mg tablet,delayed release (DR/EC) 40 mg PO DAILY metoprolol succinate 25 mg tablet extended release 24 hr 25 mg PO HS escitalopram oxalate 10 mg tablet 10 mg PO DAILY cephalexin 500 mg capsule 500 mg PO BID Qty: 10 0RF atorvastatin 40 mg tablet 40 mg PO HS levothyroxine 137 mcg tablet 137 mcg PO DAILY nitrofurantoin macrocrystal 50 mg capsule 50 mg PO DAILY sucralfate 1 gram tablet 1 g PO HS isosorbide mononitrate 30 mg tablet extended release 24 hr 30 mg PO QAM clopidogrel 75 mg tablet 75 mg PO DAILY methenamine hippurate 1 gram tablet 1 g PO QAM pantoprazole 40 mg tablet,delayed release (DR/EC) 40 mg PO QAM aspirin 81 mg tablet,chewable 81 mg PO DAILY metoprolol succinate 25 mg tablet extended release 24 hr 25 mg PO DAILY lisinopril-hydrochlorothiazide 10-12.5 mg tablet 1 tab PO DAILY escitalopram oxalate 20 mg tablet 20 mg PO DAILY memantine 10 mg tablet 10 mg PO BID sucralfate 1 gram tablet 1 g PO HS lisinopril-hydrochlorothiazide 10-12.5 mg tablet 1 tab PO QAM memantine 10 mg tablet 10 mg PO AMHS levothyroxine 137 mcg tablet 137 mcg PO DAILYBB aspirin 81 mg tablet,delayed release (DR/EC) 81 mg PO DAILY Qty: 1 0RF Admission Data Admit Date/Time: 06/28/22 23:29 Attending Provider: Gregg Soriano Admit Provider: Balbir Sandoval Primary Care Provider: Lorena Paz Other Providers: Francisco Javier Guerrero Coding Level of Care Code 28856 INP/OBS DISCH >30 MIN Diagnoses Near syncope R55 Recurrent UTI N39.0 CKD (chronic kidney disease) N18.9 Dementia F03.90 Dementia behavioral disturbance: without behavioral disturbance Dementia type: unspecified type Hypertension I10
--- NOTE | 2022-06-30 16:42 | Electrocardiogram Report ---
Test Reason : Blood Pressure : / mmHG Vent. Rate : 066 BPM Atrial Rate : 066 BPM P-R Int : 210 ms QRS Dur : 094 ms QT Int : 440 ms P-R-T Axes : 000 197 161 degrees QTc Int : 461 ms Poor data quality, interpretation may be adversely affected Arm lead reversal is present Sinus rhythm with 1st degree A-V block Probably normal assuming lead reversal When compared with ECG of 18-DEC-2021 22:29, No significant change assuming lead reversal Confirmed by Gabriel Mario ([id number]) on 06/30/2022 4:42:27 PM Referred By: REFERRED SELF Confirmed By:Gabriel Mario
--- NOTE | 2022-07-07 01:14 | Billing Data ---
Date of Service July 07, 2022 Coding Level of Care Code 75264 INT INP/OBS CARE
[2022-07-08 11:02] LABS: Creatinine Clr Calc Pharmacy 22.6 ml/min; Est GFR (Non-African American) 25.9 ml/min
[2022-07-08 11:03] LABS: Hematocrit (blood only) 36.1 % (37.0-47.0); Hemoglobin 11.8 g/dl (12.0-16.0); Red Blood Count 4.13 M/uL (4.20-5.40)
[2022-07-08 11:04] LABS: Troponin I High Sensitivity 117.3 pg/ml (0-14)
== END 2022-06-30 19:11 | disposition home health service (06) | DRG 689 ==
LOC: ED 18:29 → EDSEX 18:29 → 2W 23:29 → INTOOBSV 23:29 → SUATTDRO 23:29 → MERGE 23:29 → 2W 06-29 00:24

== ENCOUNTER 2024-10-20 16:57 | Inpatient (IN) ==
[2024-10-20 17:56] LABS: Hematocrit (blood only) 33.8 % (37.0-47.0); Hemoglobin 10.5 g/dl (12.0-16.0); Immature Granulocytes # (auto) 0.03 K/uL (0.01-0.20); Immature Granulocytes % (auto) 0.5 %; Mean Corpuscular Hemoglobin 26.3 pg (25.0-34.0); Mean Corpuscular Volume 84.7 fL (80.0-100.0); Platelet Count 247 K/uL (130-400); RDW Standard Deviation 53.5 fL (36.4-46.3); Red Blood Count 3.99 M/uL (4.20-5.40); White Blood Count 5.96 K/ul (4.8-10.8)
[2024-10-20 18:15] LABS: Alanine Aminotransferase 10 U/L (7-52); Albumin Globulin Ratio 0.8 (0.9-2); Alkaline Phosphatase 93 U/L (34-104); Anion Gap 5 (3-11); Bilirubin,Total 0.5 mg/dl (0.2-1.0); Blood Urea Nitrogen 32 mg/dl (6-23); Calcium 9.0 mg/dl (8.6-10.3); Carbon Dioxide 26 mmol/L (21-32); Chloride 106 mmol/L (98-107); Globulin 4.4 gm/dl (2.5-4.0); Glucose 106 mg/dl (70-99(Fasting)); Potassium 4.1 mmol/L (3.5-5.1); Sodium 137 mmol/L (136-145); Total Protein 8.0 gm/dl (6.0-8.3)
[2024-10-20 18:22] LABS: INR 1.0 (0.9-1.1); Prothrombin Time 11.3 Seconds (9.0-12.0)
[2024-10-20 18:26] LABS: Lipase 31 U/L (11-82); Magnesium 2.1 mg/dl (1.7-2.4)
--- NOTE | 2024-10-20 18:27 | XRay Report ---
Chest radiograph, one view History: Chest pain Comparison: 11/29/2023 Findings: Single AP view of the chest performed. No focal consolidation or pleural effusion. No pneumothorax. Some chronic thin scarring is seen in the lower lungs in the left midlung. The cardiomediastinal silhouette is within normal limits. Normal pulmonary vascularity. No evidence for lymphadenopathy. No visualized bony or soft tissue abnormality. Impression: No acute process Electronically signed by Lloyd Hinton 10-20-2024 6:27 PM
--- NOTE | 2024-10-20 20:03 | CT Scan Report ---
CT of the chest without contrast Technique: Noncontrast axial images of the chest. Coronal and sagittal reformatted images made available for review Comparison made to prior exam dated 06/18/2021 Findings: Limited exam without IV contrast.Coronary artery calcifications. Aortic valve calcification. Mitral valve calcification. Cardiomegaly. Innumerable subtle groundglass opacities scattered throughout the lungs bilaterally new since prior exam. Trace fluid within the left major fissure. Bone windows demonstrate no focal abnormality Impression Multifocal pneumonia superimposed upon mild pulmonary fibrotic change. Electronically signed by Shai Mercado 10-20-2024 8:03 PM
--- NOTE | 2024-10-20 20:18 | Emergency Department Note ---
Impression & Plan Multifocal pneumonia, Dementia, Aspiration into airway ED Provider Note ED Provider Note NAME: MONTSE DELGADO AGE:88 SEX: Female : 1935 ARRIVES VIA: Private vehicle INFORMANT: Patient, family, caregiver ED PROVIDER(s): Tari Garces DO CHIEF COMPLAINT: Concern for aspiration HPI: This is an 88-year-old female brought in by family who provide history due to concern for aspiration. They state patient does have a history of dementia and can answer some questions. Daughter at bedside states they were on vacation on October 05 until the patient had a choking episode followed by an episode of vomiting while she was laying down in bed. She tried to clear her airway and continue to closely monitor her mother over the next several days. She states over the course of the last week they have noted increased fatigue, a more productive cough, and a decreased appetite. They have not noted any fevers or chills, any increased confusion, any change in bowel or bladder function. Patient is chronically wheelchair-bound due to a contracture in the right lower extremity secondary to the stroke in 2018 additionally. They state patient has never had a prior EGD or swallow study. She does have a history of some reflux. They state they have noticed over the last week 3 choking episodes with her pills additionally. They have not noticed any difficulty with any of her foods and is not altered or changed her diet in any way. PAST MEDICAL HISTORY:See Below PAST SURGICAL HISTORY:See Below FAMILY HISTORY:See Below SOCIAL HISTORY:See Below HOME MEDICATIONS:See Below ALLERGIES:See Below VITALS:See Below PHYSICAL EXAMINATION: GENERAL: alert, well appearing, well nourished, no distress, non-toxic EYE EXAM: normal conjunctiva, PERRL and EOM's grossly intact OROPHARYNX: no exudate, no erythema, lips, buccal mucosa, and tongue normal and mucous membranes are moist, poor dentition NECK: supple, no nuchal rigidity, no adenopathy, non-tender LUNGS: Clear to auscultation. Normal chest wall mechanics, no w/r, scattered lower lobe rhonchi HEART: no murmurs, S1 normal and S2 normal ABDOMEN: abdomen soft, non-tender, normo-active bowel sounds, no masses, no rebound or guarding. SKIN: no rashes, petechiae, orbruising UPPER EXTREMITIES: upper extremities are grossly normal. FROM, nml pulses b/l. LOWER EXTREMITIES: No pitting edema. FROM, nml pulses b/l. NEURO EXAM: Pleasantly confused, cranial nerves II-XII grossly intact, normal speech, no facial droop,nogross weakness of arms, no gross weakness of legs. Gross sensation intact. No ataxia. Vital Signs: reviewed and remarkable Differential Diagnosis: dehydration, stroke, anemia, hypoglycemia, hyponatremia, hypernatremia, urinary tract infection, pneumonia, bronchitis, sepsis, gastroenteritis, additional abdominal pathology, metabolic abnormalities, as well as others were considered MEDICAL DECISION MAKING: This is an 88-year-old female who presents to the emergency department due to concern by family for worsening cough, weakness, decreased appetite, and concern for aspiration with recent choking episodes. The patient was afebrile and hemodynamically stable on arrival. Labs are drawn and sent, IV established, EKG and chest x-ray performed at bedside and interpreted by me and the patient was monitored on telemetry. Patient's initial labs and imaging reassuring however given concern for story and advanced age, patient sent for CT of the chest. Patient noted to have anemia however stable. Her troponin. Creatinine also noted to be elevated however improved compared to prior. CT revealed multifocal pneumonia. Patient and caregiver updated at bedside and verbalized understanding. Additional labs including blood cultures drawn and sent patient started on IV antibiotics. Case discussed with the hospitalist team for additional evaluation and management. Consultation(s): 2129: Discussed with Dr. [place], [place] hospitalist team, for additional evaluation and mgmt. ER Treatment Provided: See below Diagnostics Interpreted By Me: -ECG: nsr at 65, first degree AV block, left axis, nml intervals, no acute ST/T wave changes -Cardiac Monitoring: An order was placed for continuous cardiac monitoring. The monitor shows a rate of 60 with normal sinus rhythm. -Laboratory studies: As stated above and show below. -Imaging studies: X-ray Chest: A single view study of the chest was reviewed and was negative for cardiomegaly, effusion, pulmonary edema, or wide mediastinum. Questionable evolving infiltrate noted bilateral lower lobes. Triage Nursing Note Reviewed Prior/Outside Records Reviewed Past Med/Surg History Problem List (Updated 10/20/24 @ 20:18 by Tari Garces DO) Aspiration into airway (Acute) Dementia (Acute) Multifocal pneumonia (Acute) Stage 3b chronic kidney disease Acute kidney injury Elevated troponin (Acute) Hypothyroidism (Acute) Near syncope (Acute) CAD (coronary artery disease) CKD (chronic kidney disease) Dementia T2DM (type 2 diabetes mellitus) Hypothyroid Hypertension History of non-ST elevation myocardial infarction (NSTEMI) History of TIA (transient ischemic attack) Recurrent UTI Dehydration Hypomagnesemia TIA (transient ischemic attack) (Acute) Recurrent UTI (urinary tract infection) (Acute) Asymptomatic bacteriuria Dementia Diabetes History of CVA with residual deficit (Acute) CAD (coronary artery disease) Hypertension (Acute) Chest pain Multiple fractures of ribs of right side (Acute) Ambulatory dysfunction (Acute) Fall at home (Acute) Memory deficit Medical History DVT prophylaxis Elevated troponin Acute confusion Confusion Non-ST elevation (NSTEMI) myocardial infarction Retrosternal chest pain Elevated troponin NSTEMI (non-ST elevated myocardial infarction) CAD (coronary artery disease) Chest pain Chronic kidney disease Osteoarthritis of right knee UTI (urinary tract infection) T2DM (type 2 diabetes mellitus) HTN (hypertension) Carotid stenosis, bilateral Hypothyroidism Dyslipidemia Hypertension Surgical History History of cataract surgery Family History Mother No problems noted. Father No problems noted. Other Family history non-contributory Social History Smoking Status: Never smoker Hx Alcohol Use: No Hx Substance Use: No Preferred Language: Burmese Communication Ability: Impaired Communication Ability Comment: Patient is only alert and oriented to person only Visual Impairment: No Limitations Hearing Ability: Hard of Hearing Remediation Project Engineer Required: No Beliefs That Will Affect Care: None marital status: / Current Living Situation: Spouse and Family Current Living Situation Comment: Patient lives with her son, but her daughter and son in law also help How many Children do You have: 2 Feels Safe at Home: Yes Assistive Devices: Bedside Commode, Hospital Bed, Walker and Wheelchair Allergies Allergies Allergy/AdvReac Type Severity Reaction Status Date / Time cefpodoxime [From Vantin] Allergy Unknown Unknown Verified 06/29/22 07:43 Sulfa (Sulfonamide Allergy Unknown Unknown Verified 06/29/22 07:43 Antibiotics) sulfamethoxazole Allergy Rash Verified 06/29/22 07:43 [From Bactrim] trimethoprim [From Bactrim] Allergy Rash Verified 06/29/22 07:43 Home Meds Home Medications Medication Instructions Recorded Confirmed acetaminophen 500 mg tablet 1,000 mg PO DIRECTED PRN Pain 09/02/21 10/21/24 (Tylenol Extra Strength) aspirin 81 mg chewable tablet 81 mg PO DAILY 06/28/22 10/21/24 atorvastatin 40 mg tablet 40 mg PO HS 06/28/22 10/21/24 clopidogrel 75 mg tablet 75 mg PO DAILY 06/28/22 10/21/24 escitalopram oxalate 20 mg tablet 20 mg PO DAILY 06/28/22 10/21/24 isosorbide mononitrate 30 mg 30 mg PO QAM 06/28/22 10/21/24 tablet,extended release 24 hr levothyroxine 137 mcg tablet 137 mcg PO DAILY 06/28/22 10/21/24 lisinopril 10 1 tab PO DAILY 06/28/22 10/21/24 mg-hydrochlorothiazide 12.5 mg tablet memantine 10 mg tablet 10 mg PO BID 06/28/22 10/21/24 metoprolol succinate 25 mg 25 mg PO DAILY 06/28/22 10/21/24 tablet,extended release 24 hr pantoprazole 40 mg tablet,delayed 40 mg PO QAM 06/28/22 10/21/24 release sucralfate 1 gram tablet 1 g PO HS 06/28/22 10/21/24 Previous Rx's Medication Instructions Recorded methenamine hippurate 1 gram tablet 1 g PO DAILY #90 tabs 09/07/24 nitrofurantoin macrocrystal 50 mg 50 mg PO DAILY #90 caps 09/07/24 capsule Results & Data (ED) Vital Signs Vital Signs - 24 hr 10/20/24 17:08 10/20/24 17:35 10/20/24 17:35 Temperature 36.4 C L Temperature Source Temporal Artery Scan Pulse Rate 61 Pulse Rate [Apical] 54 L Pulse Rate from SpO2 Sensor Respiratory Rate 21 23 Respiratory Effort / Characteristics Non-Labored Spontaneous Non-Labored Spontaneous Respiratory Depth Normal Normal Blood Pressure 120/76 Blood Pressure [Right Arm] 141/94 H Blood Pressure Mean 90 Blood Pressure Mean [Right Arm] 109 Blood Pressure Position [Right Arm] Semi-fowlers Pulse Oximetry 95 94 94 Oxygen Delivery Method Room Air Room Air Room Air Sepsis Recent Fever Within 48 Hours No Sepsis New/Unexplained Change in Mental Status N/A Sepsis Action Taken by Nursing No Action Required 10/20/24 17:41 10/20/24 17:48 10/20/24 17:48 Temperature Temperature Source Pulse Rate 49 L Pulse Rate [Apical] Pulse Rate from SpO2 Sensor Respiratory Rate Respiratory Effort / Characteristics Respiratory Depth Blood Pressure Blood Pressure [Right Arm] Blood Pressure Mean Blood Pressure Mean [Right Arm] Blood Pressure Position [Right Arm] Pulse Oximetry 94 94 Oxygen Delivery Method Room Air Room Air Sepsis Recent Fever Within 48 Hours Sepsis New/Unexplained Change in Mental Status Sepsis Action Taken by Nursing 10/20/24 18:00 10/20/24 18:42 10/20/24 19:05 Temperature Temperature Source Pulse Rate 50 L 53 L Pulse Rate [Apical] Pulse Rate from SpO2 Sensor 51 L 50 L Respiratory Rate 15 21 Respiratory Effort / Characteristics Respiratory Depth Blood Pressure 136/70 151/79 H Blood Pressure [Right Arm] Blood Pressure Mean 120 104 Blood Pressure Mean [Right Arm] Blood Pressure Position [Right Arm] Pulse Oximetry 95 94 Oxygen Delivery Method Sepsis Recent Fever Within 48 Hours Sepsis New/Unexplained Change in Mental Status Sepsis Action Taken by Nursing 10/20/24 19:33 10/20/24 20:49 10/20/24 21:02 Temperature Temperature Source Pulse Rate 59 L 55 L 61 Pulse Rate [Apical] Pulse Rate from SpO2 Sensor 59 L 54 L Respiratory Rate 23 21 18 Respiratory Effort / Characteristics Respiratory Depth Blood Pressure 155/88 H 121/89 156/70 H Blood Pressure [Right Arm] Blood Pressure Mean 110 95 76 Blood Pressure Mean [Right Arm] Blood Pressure Position [Right Arm] Pulse Oximetry 94 92 98 Oxygen Delivery Method Sepsis Recent Fever Within 48 Hours Sepsis New/Unexplained Change in Mental Status Sepsis Action Taken by Nursing 10/20/24 21:38 Temperature Temperature Source Pulse Rate 63 Pulse Rate [Apical] Pulse Rate from SpO2 Sensor Respiratory Rate Respiratory Effort / Characteristics Respiratory Depth Blood Pressure Blood Pressure [Right Arm] Blood Pressure Mean Blood Pressure Mean [Right Arm] Blood Pressure Position [Right Arm] Pulse Oximetry Oxygen Delivery Method Sepsis Recent Fever Within 48 Hours Sepsis New/Unexplained Change in Mental Status Sepsis Action Taken by Nursing Laboratory Data 10/20/24 17:38 10/20/24 17:38 Lab Results 10/20/24 10/20/24 Range/Units 17:38 21:11 WBC 5.96 (4.8-10.8) K/ul RBC 3.99 L (4.20-5.40) M/uL Hgb 10.5 L (12.0-16.0) g/dl Hct 33.8 L (37.0-47.0) % MCV 84.7 (80.0-100.0) fL MCH 26.3 (25.0-34.0) pg MCHC 31.1 L (32.0-36.0) g/dL RDW Std Deviation 53.5 H (36.4-46.3) fL RDW Coeff of Michaela 17.2 H (11.5-14.5) % Plt Count 247 (130-400) K/uL MPV 10.5 (9.4-12.4) fL Immature Gran % (Auto) 0.5 % Neut % (Auto) 52.3 % Lymph % (Auto) 28.4 % [place] % (Auto) 11.4 % Eos % (Auto) 6.7 % Baso % (Auto) 0.7 % Neut # (Auto) 3.12 (1.40-6.50) K/uL Lymph # (Auto) 1.69 (1.20-3.40) K/uL [place] # (Auto) 0.68 H (0.11-0.59) K/uL Eos # (Auto) 0.40 (0.00-0.50) K/uL Baso # (Auto) 0.04 (0.00-0.20) K/uL Immature Gran # (Auto) 0.03 (0.01-0.20) K/uL PT 11.3 (9.0-12.0) Seconds INR 1.0 (0.9-1.1) Sodium 137 (136-145) mmol/L Potassium 4.1 (3.5-5.1) mmol/L Chloride 106 (98-107) mmol/L Carbon Dioxide 26 (21-32) mmol/L Anion Gap 5 (3-11) BUN 32 H (6-23) mg/dl Creatinine 1.69 H (0.6-1.2) mg/dl Est Cr Clr Drug Dosing Not Reportable eGFR 28.69 BUN/Creatinine Ratio 18.9 (10-20) Glucose 106 H (70-99(Fasting)) mg/dl Lactate 1.1 (0.4-2.0) mmol/L Calcium 9.0 (8.6-10.3) mg/dl Magnesium 2.1 (1.7-2.4) mg/dl Total Bilirubin 0.5 (0.2-1.0) mg/dl AST 18 (13-39) U/L ALT 10 (7-52) U/L Alkaline Phosphatase 93 (34-104) U/L Troponin I High Sens 8.6 (0-14) pg/ml Total Protein 8.0 (6.0-8.3) gm/dl Albumin 3.6 (3.4-5.0) gm/dl Globulin 4.4 H (2.5-4.0) gm/dl Albumin/Globulin Ratio 0.8 L (0.9-2) Lipase 31 (11-82) U/L Procalcitonin 0.09 (0-0.5) ng/ml Administered Medications Sodium Chloride (Nss) 1,000 mls @ 125 mls/hr IV .Q8H GRAHAM Stop: 10/23/24 20:29 Last Admin: 10/20/24 21:06 Dose: 125 mls/hr Documented By: ALEN Discontinued Medications Cefepime HCl (Maxipime 2000mg) 2,000 mg in 20 mls @ 5 mls/min IV NOW STA; Protocol Stop: 10/20/24 20:27 Last Admin: 10/20/24 21:06 Dose: 5 mls/min Documented By: ALEN Metronidazole (Flagyl) 500 mg in 100 mls @ 100 mls/hr IV NOW STA; Protocol Stop: 10/20/24 21:23 Last Infusion: 10/20/24 22:34 Dose: Infused Documented By: Admin: 10/20/24 21:06 Dose: 100 mls/hr Documented By: ALEN Imaging Data Radiologist's Impression: Chest X-Ray 10/20/24 17:12 Chest radiograph, one view History: Chest pain Comparison: 11/29/2023 Findings: Single AP view of the chest performed. No focal consolidation or pleural effusion. No pneumothorax. Some chronic thin scarring is seen in the lower lungs in the left midlung. The cardiomediastinal silhouette is within normal limits. Normal pulmonary vascularity. No evidence for lymphadenopathy. No visualized bony or soft tissue abnormality. Impression: No acute process Electronically signed by Lloyd Hinton 10-20-2024 6:[address] 10/20/24 18:30 CT of the chest without contrast Technique: Noncontrast axial images of the chest. Coronal and sagittal reformatted images made available for review Comparison made to prior exam dated 06/18/2021 Findings: Limited exam without IV contrast.Coronary artery calcifications. Aortic valve calcification. Mitral valve calcification. Cardiomegaly. Innumerable subtle groundglass opacities scattered throughout the lungs bilaterally new since prior exam. Trace fluid within the left major fissure. Bone windows demonstrate no focal abnormality Impression Multifocal pneumonia superimposed upon mild pulmonary fibrotic change. Electronically signed by Shai Mercado 10-20-2024 8:03 PM Discharge Plan Visit Data Chief Complaint: Respiratory Problems Stated Complaint: CONCERN ABT PNEUMONIA AFTER ASPIRATION, REF BY DR ED Provider: Tari Garces Discharge Problem: Multifocal pneumonia, Dementia, Aspiration into airway Patient Disposition: Being Evaluated by Hospitalist Condition: Fair Discharge Instructions Interventions: ED Discharge Assessment Last Done: 10/21/24 00:46
[2024-10-20] MEDS: SODIUM CHLORIDE 0.9% 1,000 ML IV SCH (21:06)
[2024-10-20] MEDS: CEFEPIME 2000MG 2,000 MG/20 ML SYR IV STA (21:06)
[2024-10-20] MEDS: metroNIDAZOLE 500 MG/100 ML BAG IV STA (21:06)
--- NOTE | 2024-10-20 22:03 | History & Physical Report ---
Date of Service October 20, 2024 Assessment & Plan (1) Aspiration into airway: (2) Dementia: Plan Mae Contreras is a 88-year-old female with PMH of Recurrent UTI, CKD, HTN, HLD, brought in by family due to concern of aspiration and is admitted for management of aspiration pneumonia #Aspiration pneumonia -Patient had episode of choking on 10/05 followed by vomiting. Increased fatigue, progressive cough and decreased appetite thereafter. No fever, chest pain or difficulty in breathing. -CT chest reveals multifocal Pneumonia superimposed upon mild pulmonary fibrotic change. -WBC WNL -Will start on Unasyn -F/U blood C/S results -Patient had 3 choking episodes with Pills recently. will consider swallow study. #CKD -Creatinine:1.69 -Baseline creatinine: 1.5-1.6 -Monitor BMP in the AM #Dementia -Chronic stable -Continue memantine -PT/OTevaluation #HTN -BP in the range 156/70 -Continue home meds Lisinopril-Hydrochlorothiazide #H/O CAD/UT/HLD -Continue metoprolol succinate 25mg daily, Atorvastatin, Aspirin and Plavix #Hypothyroidism: Continue Levothyroxine #code: Full #DVT prophylaxis: Heparin #Dispo: Med/Surg History of Present Illness Chief Complaint: Aspiration Pneumonia Primary Care Provider: Lorena Paz This is an 88-year-old female with PMH of Recurrent UTI, CKD, HTN, HLD, brought in by family due to concern for aspiration. Patient was in the room and family members had left already. Mae has h/o dementia and she could answer some questions. History was gathered from ER notes as patient was not able to provide proper history. Patient was on vacation on October 05 until the patient had a choking episode followed by an episode of vomiting while she was laying down in bed. Her daughter tried to clear her airway and continue to closely monitor her mother over the next several days. She states over the course of the last week they have noted increased fatigue, a more productive cough, and a decreased appetite. They have not noted any fevers or chills, any increased confusion, any change in bowel or bladder function. Patient is chronically wheelchair- bound due to a contracture in the right lower extremity secondary to the stroke in 2018 additionally. They state patient has never had a prior EGD or swallow study. She does have a history of some reflux. They state they have noticed over the last week 3 choking episodes with her pills additionally. They have not noticed any difficulty with any of her foods and is not altered or changed her diet in any way. She lived by herself Allergies Allergy/AdvReac Type Severity Reaction Status Date / Time cefpodoxime [From Vantin] Allergy Unknown Unknown Verified 06/29/22 07:43 Sulfa (Sulfonamide Allergy Unknown Unknown Verified 06/29/22 07:43 Antibiotics) sulfamethoxazole Allergy Rash Verified 06/29/22 07:43 [From Bactrim] trimethoprim [From Bactrim] Allergy Rash Verified 06/29/22 07:43 Home Medications Medication Instructions Recorded Confirmed Type acetaminophen 500 mg tablet 1,000 mg PO DIRECTED PRN Pain 09/02/21 10/21/24 History (Tylenol Extra Strength) aspirin 81 mg chewable tablet 81 mg PO DAILY 06/28/22 10/21/24 History atorvastatin 40 mg tablet 40 mg PO HS 06/28/22 10/21/24 History clopidogrel 75 mg tablet 75 mg PO DAILY 06/28/22 10/21/24 History escitalopram oxalate 20 mg tablet 20 mg PO DAILY 06/28/22 10/21/24 History isosorbide mononitrate 30 mg 30 mg PO QAM 06/28/22 10/21/24 History tablet,extended release 24 hr levothyroxine 137 mcg tablet 137 mcg PO DAILY 06/28/22 10/21/24 History lisinopril 10 1 tab PO DAILY 06/28/22 10/21/24 History mg-hydrochlorothiazide 12.5 mg tablet memantine 10 mg tablet 10 mg PO BID 06/28/22 10/21/24 History metoprolol succinate 25 mg 25 mg PO DAILY 06/28/22 10/21/24 History tablet,extended release 24 hr pantoprazole 40 mg tablet,delayed 40 mg PO QAM 06/28/22 10/21/24 History release sucralfate 1 gram tablet 1 g PO HS 06/28/22 10/21/24 History methenamine hippurate 1 gram tablet 1 g PO DAILY #90 tabs 09/07/24 10/21/24 Rx nitrofurantoin macrocrystal 50 mg 50 mg PO DAILY #90 caps 09/07/24 10/21/24 Rx capsule Past Med/Surg History Problem List Aspiration into airway (Acute) Dementia (Acute) Multifocal pneumonia (Acute) Stage 3b chronic kidney disease Acute kidney injury Elevated troponin (Acute) Hypothyroidism (Acute) Near syncope (Acute) CAD (coronary artery disease) CKD (chronic kidney disease) Dementia T2DM (type 2 diabetes mellitus) Hypothyroid Hypertension History of non-ST elevation myocardial infarction (NSTEMI) History of TIA (transient ischemic attack) Recurrent UTI Dehydration Hypomagnesemia TIA (transient ischemic attack) (Acute) Recurrent UTI (urinary tract infection) (Acute) Asymptomatic bacteriuria Dementia Diabetes History of CVA with residual deficit (Acute) CAD (coronary artery disease) Hypertension (Acute) Chest pain Multiple fractures of ribs of right side (Acute) Ambulatory dysfunction (Acute) Fall at home (Acute) Memory deficit Medical History DVT prophylaxis Elevated troponin Acute confusion Confusion Non-ST elevation (NSTEMI) myocardial infarction Retrosternal chest pain Elevated troponin NSTEMI (non-ST elevated myocardial infarction) CAD (coronary artery disease) Chest pain Chronic kidney disease Osteoarthritis of right knee UTI (urinary tract infection) T2DM (type 2 diabetes mellitus) HTN (hypertension) Carotid stenosis, bilateral Hypothyroidism Dyslipidemia Hypertension Surgical History History of cataract surgery Family History Mother , age 69 with heart disease No problems noted. Father No problems noted. 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 Head Required: No Beliefs That Will Affect Care: None marital status: / Current Living Situation: Spouse and Family Current Living Situation Comment: Patient lives with her son, but her daughter and son in law also help How many Children do You have: 2 Feels Safe at Home: Yes Assistive Devices: Bedside Commode, Hospital Bed, Walker and Wheelchair Review of Systems Review of Systems: As per HPI Physical Exam Physical Exam: Constitutional: Well appearing, No acute distress, PILCCOD: Negative HEENT: Atraumatic, Normocephalic, No conjunctival injection CVS: S1 S2 no murmur, Regular Rhythm, no LE edema Respiratory: BL equal air entry with NVBS. No rhonchi, wheezes, or crackles. No increased work of breathing GI: Soft, Nondistended, Nontender, Normal Bowel sounds + MSK: No gross deformities noted Skin: Warm, Dry, No rashes Neuro: Alert, Oriented to TPP, No Focal deficit Psych: Mood and Affect congruent, Cooperative on exam Results & Data Results & Data Vital Signs (Past 12 Hours) Vital Signs Temp Pulse Pulse Resp BP BP Pulse Ox 10/20/24 21:38 63 10/20/24 21:02 61 18 156/70 H 98 10/20/24 20:49 55 L 21 121/89 92 10/20/24 19:33 59 L 23 155/88 H 94 10/20/24 19:05 53 L 21 151/79 H 94 10/20/24 18:42 50 L 15 95 10/20/24 18:00 136/70 10/20/24 17:48 94 10/20/24 17:48 94 10/20/24 17:41 49 L 10/20/24 17:35 54 L 23 141/94 H 94 10/20/24 17:35 94 10/20/24 17:08 36.4 C L 61 21 120/76 95 O2 Del Method 10/20/24 21:38 10/20/24 21:02 10/20/24 20:49 10/20/24 19:33 10/20/24 19:05 10/20/24 18:42 10/20/24 18:00 10/20/24 17:48 Room Air 10/20/24 17:48 Room Air 10/20/24 17:41 10/20/24 17:35 Room Air 10/20/24 17:35 Room Air 10/20/24 17:08 Room Air Laboratory Results Laboratory Results WBC 5.96 K/ul (4.8-10.8) 10/20/24 17:38 RBC 3.99 M/uL (4.20-5.40) L 10/20/24 17:38 Hgb 10.5 g/dl (12.0-16.0) L 10/20/24 17:38 Hct 33.8 % (37.0-47.0) L 10/20/24 17:38 MCV 84.7 fL (80.0-100.0) 10/20/24 17:38 MCH 26.3 pg (25.0-34.0) 10/20/24 17:38 MCHC 31.1 g/dL (32.0-36.0) L 10/20/24 17:38 RDW Std Deviation 53.5 fL (36.4-46.3) H 10/20/24 17:38 RDW Coeff of Michaela 17.2 % (11.5-14.5) H 10/20/24 17:38 Plt Count 247 K/uL (130-400) 10/20/24 17:38 MPV 10.5 fL (9.4-12.4) 10/20/24 17:38 Immature Gran % (Auto) 0.5 % 10/20/24 17:38 Neut % (Auto) 52.3 % 10/20/24 17:38 Lymph % (Auto) 28.4 % 10/20/24 17:38 [place] % (Auto) 11.4 % 10/20/24 17:38 Eos % (Auto) 6.7 % 10/20/24 17:38 Baso % (Auto) 0.7 % 10/20/24 17:38 Neut # (Auto) 3.12 K/uL (1.40-6.50) 10/20/24 17:38 Lymph # (Auto) 1.69 K/uL (1.20-3.40) 10/20/24 17:38 [place] # (Auto) 0.68 K/uL (0.11-0.59) H 10/20/24 17:38 Eos # (Auto) 0.40 K/uL (0.00-0.50) 10/20/24 17:38 Baso # (Auto) 0.04 K/uL (0.00-0.20) 10/20/24 17:38 Immature Gran # (Auto) 0.03 K/uL (0.01-0.20) 10/20/24 17:38 PT 11.3 Seconds (9.0-12.0) 10/20/24 17:38 INR 1.0 (0.9-1.1) 10/20/24 17:38 Sodium 137 mmol/L (136-145) 10/20/24 17:38 Potassium 4.1 mmol/L (3.5-5.1) 10/20/24 17:38 Chloride 106 mmol/L (98-107) 10/20/24 17:38 Carbon Dioxide 26 mmol/L (21-32) 10/20/24 17:38 Anion Gap 5 (3-11) 10/20/24 17:38 BUN 32 mg/dl (6-23) H 10/20/24 17:38 Creatinine 1.69 mg/dl (0.6-1.2) H 10/20/24 17:38 Est Cr Clr Drug Dosing Not Reportable 10/20/24 17:38 eGFR 28.69 10/20/24 17:38 BUN/Creatinine Ratio 18.9 (10-20) 10/20/24 17:38 Glucose 106 mg/dl (70-99(Fasting)) H 10/20/24 17:38 Lactate 1.1 mmol/L (0.4-2.0) 10/20/24 21:11 Calcium 9.0 mg/dl (8.6-10.3) 10/20/24 17:38 Magnesium 2.1 mg/dl (1.7-2.4) 10/20/24 17:38 Total Bilirubin 0.5 mg/dl (0.2-1.0) 10/20/24 17:38 AST 18 U/L (13-39) 10/20/24 17:38 ALT 10 U/L (7-52) 10/20/24 17:38 Alkaline Phosphatase 93 U/L (34-104) 10/20/24 17:38 Troponin I High Sens 8.6 pg/ml (0-14) 10/20/24 17:38 Total Protein 8.0 gm/dl (6.0-8.3) 10/20/24 17:38 Albumin 3.6 gm/dl (3.4-5.0) 10/20/24 17:38 Globulin 4.4 gm/dl (2.5-4.0) H 10/20/24 17:38 Albumin/Globulin Ratio 0.8 (0.9-2) L 10/20/24 17:38 Lipase 31 U/L (11-82) 10/20/24 17:38 Procalcitonin 0.09 ng/ml (0-0.5) 10/20/24 17:38 Impressions Chest X-Ray 10/20/24 17:12 Chest radiograph, one view History: Chest pain Comparison: 11/29/2023 Findings: Single AP view of the chest performed. No focal consolidation or pleural effusion. No pneumothorax. Some chronic thin scarring is seen in the lower lungs in the left midlung. The cardiomediastinal silhouette is within normal limits. Normal pulmonary vascularity. No evidence for lymphadenopathy. No visualized bony or soft tissue abnormality. Impression: No acute process Electronically signed by Lloyd Hinton 10-20-2024 6:[address] 10/20/24 18:30 CT of the chest without contrast Technique: Noncontrast axial images of the chest. Coronal and sagittal reformatted images made available for review Comparison made to prior exam dated 06/18/2021 Findings: Limited exam without IV contrast.Coronary artery calcifications. Aortic valve calcification. Mitral valve calcification. Cardiomegaly. Innumerable subtle groundglass opacities scattered throughout the lungs bilaterally new since prior exam. Trace fluid within the left major fissure. Bone windows demonstrate no focal abnormality Impression Multifocal pneumonia superimposed upon mild pulmonary fibrotic change. Electronically signed by Shai Mercado 10-20-2024 8:03 PM Supervising Physician Co-Signing Physician Notes Patient seen examined, chart reviewed, case discussed with Dr. Pastor I agree with assessment and plan as document above. In brief, patient is an 88-year-old female with history of dementia. She was recently on vacation with her family when she experienced a choking episode. She was eating when she coughed and had a vomiting episode. Over the last several days she has had worsening cough productive for sputum as well as fatigue, poor appetite and difficulty taking pills. Patient is unable to provide meaningful history due to underlying history of dementia. No family at bedside presently. History obtained mainly through discussion with the ER attending On physical exam patient is resting comfortably, no acute distress Skin warm, dry, intact with no rash HEENT with moist mucous membranes, neck supple Heart + S1, S2, regular, 3/6 systolic ejection murmur at second right intercostal space Lungscoarse rhonchi appreciated in mid lung kaur bilaterally, no wheeze Abdomensoft, nontender, nondistended Labs and images reviewed, significant for stable normochromic, normocytic anemia with Hgb = 10.5, HCT = 33.8. Elevated BUN = 32, elevated creatinine = 1.69 which is near his baseline CT chest with multifocal pneumonia superimposed upon mild pulmonary fibrotic change Assessment/plan #Suspect aspiration pneumoniamultifocal pneumonia now, reported aspiration event with vomiting approximately 1 week ago. Patient with no respiratory distress. Adequate oxygenation on room air. Will continue antibiotic coverage with Unasyn Maintain aspiration precautions - Oxygen as needed Tylenol as needed Speech/swallow evaluation for concern for aspiration Management of chronic medical issues as above
[2024-10-21] MEDS ORDERED: ACETAMINOPHEN 500 MG TAB PO PRN (00:47)
[2024-10-21] MEDS ORDERED: MAGNESIUM HYDROXIDE SUSP 30 ML UDC PO PRN (00:47)
[2024-10-21] MEDS ORDERED: POLYETHYLENE (MIRALAX) 17 GM PACK PO PRN (00:47)
[2024-10-21] MEDS ORDERED: ALUMINUM/MAGNESIUM SUSP 30 ML UDC PO PRN (00:47)
--- NOTE | 2024-10-21 01:54 | Billing Data ---
Date of Service October 20, 2024 Coding Level of Care Code 83190 INT INP/OBS CARE
[2024-10-21] MEDS: MEMANTINE HCL 10 MG TAB PO SCH (02:28)
[2024-10-21] MEDS: AMPICILLIN/SULBACTAM SOD 3,000 MG/100 ML BAG IV SCH (03:24)
[2024-10-21] MEDS: LEVOTHYROXINE SODIUM 137 MCG TABLET PO SCH (05:33)
[2024-10-21 07:18] LABS: Hematocrit (blood only) 30.1 % (37.0-47.0); Hemoglobin 9.4 g/dl (12.0-16.0); Immature Granulocytes # (auto) 0.02 K/uL (0.01-0.20); Immature Granulocytes % (auto) 0.4 %; Mean Corpuscular Hemoglobin 26.4 pg (25.0-34.0); Mean Corpuscular Volume 84.6 fL (80.0-100.0); Platelet Count 216 K/uL (130-400); RDW Standard Deviation 53.1 fL (36.4-46.3); Red Blood Count 3.56 M/uL (4.20-5.40); White Blood Count 4.92 K/ul (4.8-10.8)
[2024-10-21 07:38] LABS: Anion Gap 5.0 (3-11); Blood Urea Nitrogen 28.0 mg/dl (6-23); Calcium 8.5 mg/dl (8.6-10.3); Carbon Dioxide 24.0 mmol/L (21-32); Chloride 111.0 mmol/L (98-107); Creatinine Clr Calc Pharmacy 29.9 ml/min; Glucose 93.0 mg/dl (70-99(Fasting)); Potassium 4.1 mmol/L (3.5-5.1); Sodium 140.0 mmol/L (136-145)
[2024-10-21] MEDS: HEPARIN SOD 5,000 UNIT/0.5 ML VIAL SQ SCH (09:47)
[2024-10-21] MEDS: LISINOPRIL/HCTZ 10/12.5MG TAB PO SCH (09:48)
[2024-10-21] MEDS: METOPROLOL SUCC 25MG EXT REL TAB PO SCH (09:48)
[2024-10-21] MEDS: METHENAMINE HIPPURATE 1 GM TAB PO SCH (09:49)
[2024-10-21] MEDS: ESCITALOPRAM OXALATE 20 MG TAB PO SCH (09:49)
[2024-10-21] MEDS: NYSTATIN POWDER 15GM BTL EXT SCH (09:49)
[2024-10-21] MEDS: CLOPIDOGREL BISULFATE 75 MG TAB PO SCH (09:49)
--- NOTE | 2024-10-21 11:07 | Hospitalist Progress Note ---
Date of Service October 21, 2024 Assessment & Plan (1) Multifocal pneumonia: (2) Dementia: (3) Acute kidney injury superimposed on chronic kidney disease: (4) CAD (coronary artery disease): Plan Mae Acuna is an 88-year-old female with PMH of dementia, CKD3b, MANJU, CAD, CVA in 2018, HTN, HLD brought in by family due to concern of aspiration, admitted for management of aspiration pneumonia, multifocal per CT chest, likely 2/2 aspiration event earlier in the month. Requires hospitalization for IV antibiotics and medical management/optimization of acute and chronic conditions. Family discussion regarding goals of care is in order. #Multifocal pneumonia #Aspiration history Episode of choking on 10/05/24 followed by vomiting. Within last few days she has had increased fatigue, progressive cough and decreased appetite thereafter. No fever, chest pain or difficulty in breathing. This aspiration was likely due to a combination of her dementia and residual deficits from her stroke in 2018 - CT chest revealing multifocal pneumonia superimposed upon mild pulmonary fibrotic change Continue Unasyn IV for now 2 of 4 blood culture bottles have grown gram+ cocci in clusters with PCR showing Staph species; likely not aureus, epidermidis, or lugdunensis as if these were the present organism it would have said so in the PCR results, however we will err on side of caution and add vancomycin 1000mg q12 IV for MRSA coverage on the off chance that MRSA is the organism in question Ordered additional blood cultures, now after about 24hrs of IV antibiotics Ordered sputum cultures CBC AM Ordered incentive spirometry to use hourly as tolerated - Ordered speech/swallow to evaluated and treat, appreciate recs: Diet changed to pureed heart healthy as she has been having difficulty swallowing pills; doing well with pureed diet and crushed pills thus far Changed metoprolol succinate to metoprolol tartrate 25mg BID as this may be crushed, Imdur 30mg daily switched to Ismo 20mg BID which may also be crushed Fluoroscopic Swallow Study planned for Wednesday10/23/24 9:30am, appropriate staff not present over weekend #Dementia #Depression Chronic, likely a contributor to her aspiration risk - Continue memantine, continue lexapro - ordered speech/swallow to evaluated and treat, appreciate recs as above - PT/OT evaluation - will discuss with family about baseline activities and behaviors #Hx CVA, L-sided (basal ganglia) in 2018 Possible residual deficits contributing to her overall aspiration risk - continue Aspirin and Plavix #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 Bansal - Creatinine improved 1.69 -> 1.32 BMP AM - Discontinued IVF to prevent fluid overload #Anemia, iron deficiency Hgb 10.5 -> 9.4, MCV ~84 with low ferritin and Fe; no prior documentation in [facility] charts, most recent labs August 2024 Will discuss with family about iron supplementation; will proceed if no major concerns about constipation CBC AM #MSK pain Likely due to being wheelchair-bound, reportedly uses lidocaine patches at home Ordered lidocaine patches for relief #Aortic Stenosis Echo from 2020 showing moderate aortic stenosis - Cresc-decresc murmur in R sternal border Ordered echo, non-urgent, for monitoring of progression of known #HTN, stable - Continue home Lisinopril-HCTZ - metoprolol switched to tartrate 12.5mg BID #CAD w/ Hx of NSTEMI switched metoprolol succinate 25mg daily to metop tartrate 12.5mg BID to be crushed; imdur changed to Ismo BID crushed - continue atorvastatin, Aspirin and Plavix #Recurrent UTIs Continue prophylactic macrobid and methenamine hippurate daily #Hypothyroidism: Continue Levothyroxine VTE prophylaxis: Heparin Dispo: Med/Surg Admission and Anticipated Discharge Date Admission Date: October 20, 2024 Supervising Physician Co-Signing Physician Notes I personally examined the patient and verified all kyle points of history and exam, discussed case, and agree with decision making with Dr. Moon with the following additions/exceptions: S-patient surprised hear that she has pneumonia, denies cough, has no complaints, pleasantly confused O- Vitals Reviewed Gen: AAOx1, NAD HEENT: Anicteric sclerae, EOMI CV: RRR 3/6 stock ejection murmur at the RUSB, S2 audible Pulm: Fine crackles in bilateral lower and middle lung kaur no wcr Abd: +BS soft NT ND no masses or hernias Ext: No edema CBC, BMP, blood cultures, HgbA1c reviewed reviewed A/P: 88-year-old female with history of recurrent UTI, CAD nonobstructive, CKD stage III, HTN, HLD, iron deficiency anemia, dementia, CVA with right-sided hemiparesis, hypothyroidism, DM2, here with aspiration pneumonia and bacteremia. Seems to be stabilizing - Continue antibiotic coverage with Unasyn and add Unasyn for Staphylococcus in blood cultures - Repeat blood cultures Maintain aspiration precautions-appreciate speech consultation - Oxygen as needed Tylenol as needed Management of chronic medical issues as above -DC IV fluids - Check sputum culture - Check echo for progression of severity of aortic stenosis -Will have goals of care discussion with family especially in the setting of aspiration, dementia, and if has severe aortic stenosis Subjective Mae was seen and evaluated at bedside, appearing well. States she is feeling "fine", denies any chest pain, SOB, pain with breathing, or cough with sputum. States she is normally very healthy and is very outdoorsy- did not address the fact that she is wheelchair-bound. Notes she had a BM yesterday which was regular for her. Afebrile with stable vitals, no reported body aches or chills. Physical Exam Physical Exam: Constitutional: Alert, oriented to first and last name, partial , and location but not reason; appearing in no acute distress HEENT: missing upper dentition, sparse lower dentition, no foreign body seen in mouth or throat; moist oral mucus membranes CV: systolic cresc-decresc murmur in upper R sternal border, otherwise no m/r/g; RRR, unable to hear Respiratory: scattered rales throughout lung kaur, no wheeze or rhonchi, b/l decreased air movement GI/Abd: +BS, abdomen soft, nondistended, nontender to palpation MSK: b/l LE in flexed position, resting on R side, no gross deformities noted Neuro: no facial droop, no obvious focal deficits, wiggles toes Results & Data Results & Data Vital Signs (Past 12 Hours) Vital Signs Temp Pulse Pulse Resp BP Pulse Ox O2 Del Method 10/21/24 07:09 36.7 C 61 16 135/61 94 Room Air 10/21/24 02:15 Room Air 10/21/24 02:15 36.5 C 70 16 138/83 93 Room Air 10/21/24 01:35 69 166/81 H 93 Room Air 10/21/24 00:56 59 L Resident Activity Tracking Resident Involvement: Resident Care Provided Care Provided: Adult Hospital Medicine (2) Dementia Dementia behavioral or psychological symptom: unspecified whether behavioral, psychotic, or mood disturbance or anxiety Dementia severity: unspecified severity Dementia type: unspecified type Qualified Code(s): F03.90 - Unspecified dementia, unspecified severity, without behavioral disturbance, psychotic disturbance, mood disturbance, and anxiety
[2024-10-21] MEDS: ISOSORBIDE MONO EXTENDED REL 30 MG TABCR PO SCH (11:18)
[2024-10-21] MEDS: ASPIRIN 81 MG ECTAB PO SCH (11:19)
--- NOTE | 2024-10-21 11:54 | Electrocardiogram Report ---
Test Reason : Blood Pressure : */* mmHG Vent. Rate : 65 BPM Atrial Rate : 65 BPM P-R Int : 202 ms QRS Dur : 104 ms QT Int : 456 ms P-R-T Axes : 62 -36 14 degrees QTcB Int : 474 ms Normal sinus rhythm with sinus arrhythmia Left axis deviation Minimal voltage criteria for LVH, may be normal variant Poor R wave progression, consider anterior MD vs. lead placement vs. LVH Abnormal ECG When compared with ECG of 29-Nov-2023 13:44, Questionable change in initial forces of Septal leads QT has lengthened Confirmed by Kojo Mallory ([id number]) on 10/21/2024 11:53:52 AM Referred By: Lorena Paz Confirmed By: Kojo Mallory
[2024-10-21] MEDS: ISOSORBIDE MONONITRATE 20 MG TAB PO SCH (12:08)
[2024-10-21] MEDS: ASPIRIN 81 MG CHEW PO SCH (12:08)
[2024-10-21] MEDS: ACETAMINOPHEN 325 MG TAB PO PRN (12:57)
[2024-10-21] MEDS: LIDOCAINE 5% 1 PATCH TD SCH (16:03)
[2024-10-21 16:58] LABS: A calco-baum cmplx NotReported Not Detected (NotDetected); Bact fragilis Not Reported Not Detected (NotDetected); Blood Culture Id Panel See PCR Comment (NotDetected); C auris Not Reported Not Detected (NotDetected); Calbicans Not Reported Not Detected (NotDetected); Candida glabrata Not Reported Not Detected (NotDetected); Candida krusei Not Reported Not Detected (NotDetected); Cneoformans/gatti Not Reported Not Detected (NotDetected); Cparapsilosis Not Reported Not Detected (NotDetected); Ctropicalis Not Reported Not Detected (NotDetected); E cloacae compx Not Reported Not Detected (NotDetected); Efaecalis Not Reported Not Detected (NotDetected); Efaecium Not Reported Not Detected (NotDetected); Enterobacterales Not Reported Not Detected (NotDetected); Escherichia coli Not Reported Not Detected (NotDetected); H influenzae Not Reported Not Detected (NotDetected); K aerogenes Not Reported Not Detected (NotDetected); Koxytoca Not Reported Not Detected (NotDetected); Kpneumoniae grp Not Reported Not Detected (NotDetected); Lmonocyt Not Reported Not Detected (NotDetected); N meningitidis Not Reported Not Detected (NotDetected); P aeruginosa Not Reported Not Detected (NotDetected); Proteus spp Not Reported Not Detected (NotDetected); Salmonella spp Not Reported Not Detected (NotDetected); Staph lugdunensis Not Reported Not Detected (NotDetected); Staph spp. Not Reported DETECTED (NotDetected); Staphaureus Not Reported Not Detected (NotDetected); Staphepi Not Reported Not Detected (NotDetected); Stenmaltophilia Not Reported Not Detected (NotDetected); Strep agal(GrpB) Not Reported Not Detected (NotDetected); Strep pneum Not Reported Not Detected (NotDetected); Strep pyog (GrpA) Not Reported Not Detected (NotDetected); Strep spp Not Reported Not Detected (NotDetected)
[2024-10-21 17:06] LABS: Staphylococcus spp. DETECTED (NotDetected)
[2024-10-21] MEDS ORDERED: VANCOMYCIN CONSULT ACTIVE PRN (17:36)
[2024-10-21] MEDS: VANCOMYCIN HCL 1,750 MG in SODIUM CHLORIDE 0.9% 500 ML IV STA (18:24)
--- NOTE | 2024-10-21 20:08 | Billing Data ---
Date of Service October 21, 2024 Coding Level of Care Code 02973 SUB INP/OBS CARE MIN
[2024-10-21] MEDS: MELATONIN 3 MG TAB PO PRN (20:20)
[2024-10-21] MEDS: METOPROLOL TARTRATE 25 MG TAB PO SCH (20:23)
[2024-10-21] MEDS: REMOVE LIDODERM PATCH SCH (20:24)
[2024-10-21] MEDS: ATORVASTATIN 40 MG TAB PO SCH (20:25)
[2024-10-21] MEDS: SUCRALFATE 1 GM TAB PO SCH (20:25)
[2024-10-21] MEDS ORDERED: METOPROLOL TARTRATE 25 MG TAB PO SCH (21:00)
[2024-10-21 23:12] LABS: Appearance Urine Clear (Clear); Bacteria Urine Automated None Seen (None Seen); Cast Urine Automated 0-2 /lpf (0-2); Epithelial Cell Urine Auto 0-2 /hpf (0-2); Glucose Urine UA Negative (Negative); RBC Urine Automated 0-2 /hpf (0-2)
--- NOTE | 2024-10-22 06:48 | Hospitalist Progress Note ---
Date of Service October 22, 2024 Assessment & Plan (1) Multifocal pneumonia: (2) Dementia: (3) Acute kidney injury superimposed on chronic kidney disease: (4) CAD (coronary artery disease): Plan Mae Acuna is an 88-year-old female with PMH of dementia, CKD3b, MANJU, CAD, CVA in 2018, HTN, HLD brought in by family due to concern due to 3 aspiration events this month, admitted for management of aspiration pneumonia, multifocal per CT chest. Requires hospitalization for IV antibiotics and medical management/optimization of acute and chronic conditions. Per family discussion with daughter/POA Arlyn Carter, Mae has a lot of support at home where she lives with her daughter Arlyn and son-in-law, who is also wheelchair-bound. House is well-equipped and accessible for wheelchair use and pt does not need to go beyond the first floor. Wants to avoid sending Mae to acute rehab as this is caused her to worsen physically in the past, namely after her acute rehab from May 2021 after which she lost her ability to walk, thereafter wheelchair-bound. Arlyn wants to try home PT for Mae directly after hospital discharge if possible. #Multifocal pneumonia #Aspiration history Three reported aspiration events earlier this month, becoming more frequent compared to prior months Likely due to a combination of progression of her dementia and residual deficits from her stroke in 2018 Still no fever, chest pain or difficulty in breathing. - CT chest revealing multifocal pneumonia superimposed upon mild pulmonary fibrotic change Continue Unasyn IV for now Original BCx have grown Staph capitis in 2/4 bottles, very likely a contami nant, thus vancomycin has been discontinued Second set of original BCx still negative for growth in over 24hs Additional blood cultures pending Ordered sputum cultures: no sample yet CBC AM Incentive spirometry to use hourly as tolerated - Speech/swallow to evaluated and treat, appreciate recs: Continue pureed heart healthy as she has been having difficulty swallowing pills; doing well with pureed diet and crushed pills thus far Fluoroscopic Swallow Study planned for Wednesday10/23/24 9:30am, appropriate staff not present over weekend #Dementia #Depression Chronic, likely a contributor to her aspiration risk, see above plan swallow study - Continue memantine, continue lexapro - POA/daughter Arlyn is happy with how pt has been doing, endorses closer to her baseline with mentation and eating than she was prior to current hospitalization #Hx CVA, L-sided (basal ganglia) in 2018 Possible residual deficits contributing to her overall aspiration risk - continue Aspirin and Plavix #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 Bansal - Creatinine improved 1.32 -> 1.18 BMP AM - remains off IVF to prevent fluid overload #Anemia, iron deficiency Hgb 9.4 -> 9.0; MCV ~84 with low ferritin and Fe; no prior documentation in [facility] charts, most recent labs August 2024 Starting ferrous sulfate 325mg oral elixer qAM CBC AM #MSK pain Likely due to being wheelchair-bound, reportedly uses lidocaine patches at home Continue lidocaine patches for relief #Aortic Stenosis Echo from 2021 showing mild-moderate aortic stenosis - Cresc-decresc murmur in R sternal border Echocardiogram 10/22/24 showing progression to moderate aortic stenosis Consider outpatient surveillance with cardiology for progression #HTN, stable - Continue home Lisinopril-HCTZ - metoprolol switched to tartrate 12.5mg BID to be able to be crushed #CAD, non-obstructive Non-obstructive CAD dx in Mar [address] Mack, suggesting troponin elevation due to vasospasm vs transient small vessel obstruction Continue metop tartrate 12.5mg BID; Ismo BID (switched so that this can be crushed) - continue atorvastatin, Aspirin and Plavix #Recurrent UTIs Continue prophylactic macrobid and methenamine hippurate daily #Hypothyroidism: Continue Levothyroxine VTE prophylaxis: Heparin Dispo: continued Med/Surg while here, PT recommending d/c to SNF however daughter/POA Arlyn Carter prefers pt to come home as they have adequate resources and accessibility Admission and Anticipated Discharge Date Admission Date: October 20, 2024 Supervising Physician Co-Signing Physician Notes I personally examined the patient and verified all kyle points of history and exam, discussed case, and agree with decision making with Dr. Moon with the f christine additions/exceptions: S-I woke patient from sleep and she seemed confused but pleasant. No complaints O- Vitals Reviewed Gen: AAOx1, NAD HEENT: Anicteric sclerae, EOMI CV: RRR 3/6 systolic ejection murmur at the RUSB, S2 audible Pulm: CTAB, no W CR Ext: No edema CBC, BMP, blood cultures, and echocardiogram reviewed A/P: 88-year-old female with history of recurrent UTI, CAD nonobstructive, CKD stage III, HTN, HLD, iron deficiency anemia, dementia, CVA with right-sided hemiparesis, hypothyroidism, DM2, here with aspiration pneumonia and bacteremia. Seems to be stabilizing to improving - Continue antibiotic coverage with Unasyn but can stop vancomycin as Staphylococcus capitis in the 1 set of blood cultures is probably contaminant and repeat blood cultures no growth thus far. Furthermore, Unasyn would cover for Staphylococcus capitis - Continue to follow repeat blood cultures Maintain aspiration precautions-appreciate speech consultation-plan for video swallow on Wednesday - Continue oxygen as needed Tylenol as needed Management of chronic medical issues as above - Check sputum culture if able to give sample - Follow aortic stenosis as an outpatient -Improving, will be stable for discharge to home likely in the next 1 to 2 days Subjective Mae was seen and evaluated at bedside this AM, feeling "fine." States she denies any pain or discomfort, continues to be satting well on room air. Continues to any chest pain, SOB, pain with deep breath, or cough with sputum. Continues to be afebrile with stable vitals, no reported body aches or chills. Physical Exam Physical Exam: Constitutional: A&Ox3 with name, , and location but not sure why; appearing in no acute distress HEENT: missing upper dentition, sparse lower dentition, no foreign body seen in mouth or throat; moist oral mucus membranes CV: systolic cresc-decresc murmur in upper R sternal border, otherwise no m/r/g; RRR, soft s1/s2 Respiratory: mild scattered rales throughout lung kaur, no wheeze or rhonchi, b/l decreased air movement GI/Abd: +BS, abdomen soft, nondistended, nontender to palpation MSK: b/l LE in flexed position, resting on R side, no gross deformities noted Neuro: no facial droop, no obvious focal deficits, wiggles toes Results & Data Results & Data Vital Signs (Past 12 Hours) Vital Signs Temp Pulse Resp BP Pulse Ox O2 Del Method 10/21/24 20:18 36.4 C L 61 14 151/61 H 94 Room Air Resident Activity Tracking Resident Involvement: Resident Care Provided Care Provided: Adult Hospital Medicine (2) Dementia Dementia behavioral or psychological symptom: unspecified whether behavioral, psychotic, or mood disturbance or anxiety Dementia severity: unspecified severity Dementia type: unspecified type Qualified Code(s): F03.90 - Unspecified dementia, unspecified severity, without behavioral disturbance, psychotic disturbance, mood disturbance, and anxiety (4) CAD (coronary artery disease) Associated angina: unspecified whether angina present Coronary Disease- Associated Artery/Lesion type: unspecified vessel or lesion type [place] vs. transplanted heart: [place] heart Qualified Code(s): I25.10 - Atherosclerotic heart disease of [place] coronary artery without angina pectoris
[2024-10-22 07:19] LABS: Creatinine Clr Calc Pharmacy 32.9 ml/min
[2024-10-22 07:37] LABS: Hematocrit (blood only) 28.7 % (37.0-47.0); Hemoglobin 9.0 g/dl (12.0-16.0); Mean Corpuscular Hemoglobin 26.7 pg (25.0-34.0); Mean Corpuscular Volume 85.2 fL (80.0-100.0); Platelet Count 202 K/uL (130-400); RDW Standard Deviation 51.8 fL (36.4-46.3); Red Blood Count 3.37 M/uL (4.20-5.40); White Blood Count 4.85 K/ul (4.8-10.8)
[2024-10-22 07:52] LABS: Anion Gap 3.0 (3-11); Blood Urea Nitrogen 25.0 mg/dl (6-23); Calcium 8.7 mg/dl (8.6-10.3); Carbon Dioxide 25.0 mmol/L (21-32); Chloride 113.0 mmol/L (98-107); Creatinine Clr Calc Pharmacy 33.5 ml/min; Glucose 94.0 mg/dl (70-99(Fasting)); Potassium 4.2 mmol/L (3.5-5.1); Sodium 141.0 mmol/L (136-145)
[2024-10-22] MEDS ORDERED: ASPIRIN 81 MG CHEW PO SCH (09:00)
--- NOTE | 2024-10-22 10:52 | Pharmacy Report ---
Pharmacy PK ABX Note - Date of Service October 22, 2024 - Assessment and Plan Assessment 88 year old F receiving Unasyn and Vancomycin for treatment of pneumonia. * Day #2 of antimicrobial therapy. * Afebrile. No leukocytosis. SCr improving. Lactate and procal normal. * Blood cultures growing Coag Negative Staph in 1 of 2 cultures so far. Repeat cultures pending. This likely represents contamination. * Will recommend discontinuation of vancomycin at this point. Unasyn dose may be increased based on renal fxn. Plan Vancomycin * Loading dose: 1750 mg IV x 1 * Maintenance dose: 1000 mg IV every 24 hours * Regimen is predicted to achieve target AUC/ADIN of 400-600 mg/L.hr * Random level will be ordered if therapy extends beyond 48 hours Pharmacy will continue to follow and will adjust dose/frequency as necessary. Thank you. Pharmacy has transitioned to AUC monitoring for vancomycin. AUC/ADIN is the preferred PK/PD target and is associated with decreased risk of nephrotoxicity compared to traditional trough targets.
[2024-10-22] MEDS: AMPICILLIN/SULBACTAM SOD 3,000 MG/100 ML BAG IV SCH (12:16)
--- NOTE | 2024-10-22 12:41 | XCELERA ---
[id number]
[2024-10-22] MEDS ORDERED: VANCOMYCIN HCL 1,000 MG/270 ML BAG IV SCH (17:00)
--- NOTE | 2024-10-22 18:06 | Billing Data ---
Date of Service October 22, 2024 Coding Level of Care Code 14865 SUB INP/OBS CARE
[2024-10-23 06:58] LABS: Hematocrit (blood only) 28.8 % (37.0-47.0); Hemoglobin 9.4 g/dl (12.0-16.0); Mean Corpuscular Hemoglobin 27.2 pg (25.0-34.0); Mean Corpuscular Volume 83.2 fL (80.0-100.0); Platelet Count 195 K/uL (130-400); RDW Standard Deviation 51.7 fL (36.4-46.3); Red Blood Count 3.46 M/uL (4.20-5.40); White Blood Count 5.43 K/ul (4.8-10.8)
[2024-10-23 07:38] LABS: Anion Gap 5.0 (3-11); Blood Urea Nitrogen 19.0 mg/dl (6-23); Calcium 8.8 mg/dl (8.6-10.3); Carbon Dioxide 27.0 mmol/L (21-32); Chloride 110.0 mmol/L (98-107); Creatinine Clr Calc Pharmacy 36.6 ml/min; Glucose 108.0 mg/dl (70-99(Fasting)); Potassium 4.1 mmol/L (3.5-5.1); Sodium 142.0 mmol/L (136-145)
[2024-10-23] MEDS ORDERED: FERROUS SULFATE 325 MG/7.4 ML UDP PO SCH (09:00)
--- NOTE | 2024-10-23 10:00 | Hospitalist Progress Note ---
Date of Service October 23, 2024 Assessment & Plan (1) Multifocal pneumonia: (2) Dementia: (3) Acute kidney injury superimposed on chronic kidney disease: (4) CAD (coronary artery disease): Plan Mae Acuna is an 88-year-old female with PMH of dementia, CKD3b, MANJU, CAD, CVA in 2018, HTN, HLD brought in by family due to concern due to 3 aspiration events this month, admitted for management of aspiration pneumonia, multifocal per CT chest. Requires hospitalization for IV antibiotics and medical management/optimization of acute and chronic conditions. Per family discussion with daughter/POA Arlyn Carter, Mae has a lot of support at home where she lives with her daughter Arlyn and son-in-law, who is also wheelchair-bound. House is well-equipped and accessible for wheelchair use and pt does not need to go beyond the first floor. Wants to avoid sending Mae to acute rehab as this is caused her to worsen physically in the past, namely after her acute rehab from May 2021 after which she lost her ability to walk, thereafter wheelchair-bound. Arlyn wants to try home PT for Mae directly after hospital discharge if possible. #Multifocal pneumonia #Aspiration history Three reported aspiration events earlier this month, becoming more frequent compared to prior months Likely due to a combination of progression of her dementia and residual deficits from her stroke in 2018 Still no fever, chest pain or difficulty in breathing. - CT chest revealing multifocal pneumonia superimposed upon mild pulmonary fibrotic change Consider switch to Augmentin 875mg BID starting this evening Original BCx have grown Staph capitis in 2/4 bottles, very likely a contaminant, thus vancomycin discontinued Second set of original BCx still negative for growth in over 48hs Additional blood cultures negative for gworth at 24hrs Ordered sputum cultures: no sample yet CBC AM Incentive spirometry to use hourly as tolerated - Speech/swallow to evaluated and treat, appreciate recs: Fluoroscopic Swallow Study: no significant reflux or esophageal dysfunction seen Diet advanced from puree -> minced & moist #Dementia #Depression Chronic, likely a contributor to her aspiration risk, see above plan swallow study - Continue memantine, continue lexapro - POA/daughter Arlyn is happy with how pt has been doing, endorses closer to her baseline with mentation and eating than she was prior to current hospi talization #Hx CVA, L-sided (basal ganglia) in 2018 #Generalized deconditioning Possible residual deficits contributing to her overall aspiration risk - continue Aspirin and Plavix - Continue PT/OT #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 Bansal - Creatinine continues to improve: 1.18 -> 1.08 BMP AM - remains off IVF to prevent fluid overload #Anemia, iron deficiency Hgb 9 -> 9.4 ; MCV ~84 with low ferritin and Fe; no prior documentation in [facility] charts, most recent labs August 2024 Continue ferrous sulfate 325mg oral elixer qAM CBC AM #MSK pain Likely due to being wheelchair-bound, reportedly uses lidocaine patches at home Continue lidocaine patches for relief Continue PT/OT #Aortic Stenosis Echo from 2021 showing mild-moderate aortic stenosis - Cresc-decresc murmur in R sternal border Echocardiogram 10/22/24 showing progression to moderate aortic stenosis Consider outpatient surveillance with cardiology for progression #HTN, stable - Continue home Lisinopril-HCTZ - metoprolol switched to tartrate 12.5mg BID to be able to be crushed #CAD, non-obstructive Non-obstructive CAD dx in Mar [address] Mack, suggesting troponin elevation due to vasospasm vs transient small vessel obstruction Continue metop tartrate 12.5mg BID; Ismo BID (switched so that this can be crushed) - continue atorvastatin, Aspirin and Plavix #Recurrent UTIs Continue prophylactic macrobid and methenamine hippurate daily #Hypothyroidism: Continue Levothyroxine VTE prophylaxis: Heparin Dispo: continued Med/Surg while here, PT recommending d/c to SNF however daughter/POA Arlyn Carter prefers pt to come home as they have adequate resources and accessibility Admission and Anticipated Discharge Date Admission Date: October 20, 2024 Supervising Physician Co-Signing Physician Notes I personally examined the patient and verified all kyle points of history and exam, discussed case, and agree with decision making with Dr Moon no meaningful HPI or review of systems. Patient resting comfortably. Vitals noted, in general she is resting and appears to be in no distress, breathing comfortably on room air. Speech input noted and appreciated. A/P: 88-year-old female with history of recurrent UTI, CAD nonobstructive, CKD stage III, HTN, HLD, iron deficiency anemia, dementia, CVA with right-sided hemiparesis, hypothyroidism, DM2, here with aspiration pneumonia Seems to be stabilizing to improving - Continue antibiotic coverage with augmentin (Staphylococcus capitis in the 1 set of blood cultures is probably contaminant and repeat blood cultures no growth thus far.) - Speech input greatly appreciated - Follow aortic stenosis as an outpatient -Improving, resident physician discussed with family and now they are more interested in SNF as her dispocase management informed. Leora Wall was seen and evaluated at bedside this AM, feeling "fine" again. States she denies any pain or discomfort, continues to be satting well on room air. Continues to any chest pain, SOB, pain with deep breath, or cough with sputum. Continues to be afebrile with stable vitals, no reported body aches or chills. Was able to tolerate puree breakfast, going to swallow study this AM. Physical Exam Physical Exam: Constitutional: A&Ox3 with name, , and location but not sure why; no acute distress HEENT: missing upper dentition, missing mandibular incisors, no foreign body seen in mouth or throat; moist oral mucus membranes CV: systolic cresc-decresc murmur in upper R sternal border, otherwise no m/r/g; RRR, soft s1/s2 Respiratory: trace scattered rales throughout lung kaur, no wheeze or rhonchi GI/Abd: +BS, abdomen soft, nondistended, nontender to palpation MSK: b/l LE in flexed position, resting on R side, no gross deformities noted Neuro: no facial droop, no obvious focal deficits, wiggles toes Results & Data Results & Data Vital Signs (Past 12 Hours) Vital Signs Temp Pulse Resp BP Pulse Ox O2 Del Method 10/23/24 08:07 36.5 C 70 16 142/64 H 95 Room Air Resident Activity Tracking Resident Involvement: Resident Care Provided Care Provided: Adult Hospital Medicine (2) Dementia Dementia behavioral or psychological symptom: unspecified whether behavioral, psychotic, or mood disturbance or anxiety Dementia severity: unspecified s everity Dementia type: unspecified type Qualified Code(s): F03.90 - Unspecified dementia, unspecified severity, without behavioral disturbance, psychotic disturbance, mood disturbance, and anxiety (4) CAD (coronary artery disease) Associated angina: unspecified whether angina present Coronary Disease- Associated Artery/Lesion type: unspecified vessel or lesion type [place] vs. transplanted heart: [place] heart Qualified Code(s): I25.10 - Atherosclerotic heart disease of [place] coronary artery without angina pectoris
--- NOTE | 2024-10-23 11:35 | Fluoroscopy Report ---
VIDEO SWALLOW STUDY CLINICAL HISTORY: Aspiration. Fluoro time: 1.19 minutes. Ka,r: 7.53 mGy FINDINGS: Fluoroscopic guidance was provided to the Department of speech pathology in performing a vi binu swallow study. The patient consumed barium-impregnated pudding, cracker with paste, nectar-thick liquids, and thin barium while the swallowing mechanism was observed in real-time. No penetration or aspiration was seen with any of the sampled textures. Esophageal dysmotility is observed. IMPRESSION: 1. No penetration or aspiration was seen with any of the sampled textures. 2. See dedicated speech pathology report for detailed findings and recommendations. Dictated: 10/23/2024 10:34 AM Transcribed: 10/23/2024 11:15 AM Pierre [id number] [email or web address] Electronically signed by: Carlos Atwood M.D. 10/23/2024 11:34 AM
[2024-10-23] MEDS: FERROUS SULFATE 325 MG/7.4 ML UDP PO SCH (12:14)
[2024-10-23] MEDS: AMOXICILLIN/CLAVULANATE 875 MG TAB PO SCH (16:41)
--- NOTE | 2024-10-23 18:23 | Billing Data ---
Date of Service October 23, 2024 Coding Level of Care Code 41101 SUB INP/OBS CARE
--- NOTE | 2024-10-23 18:24 | Billing Data ---
Date of Service October 23, 2024 Coding Level of Care Code 86980 SUB INP/OBS CARE
[2024-10-24 09:14] LABS: Anion Gap 5.0 (3-11); Blood Urea Nitrogen 18.0 mg/dl (6-23); Calcium 8.9 mg/dl (8.6-10.3); Carbon Dioxide 26.0 mmol/L (21-32); Chloride 108.0 mmol/L (98-107); Creatinine Clr Calc Pharmacy 37.3 ml/min; Glucose 99.0 mg/dl (70-99(Fasting)); Potassium 4.1 mmol/L (3.5-5.1); Sodium 139.0 mmol/L (136-145)
[2024-10-24] MEDS: PNEUMOCOCCAL VACCINE (PCV20) 20-VAL CONJ-DIP CRM/PF 0.5 ML SYR IM ONE (11:55)
[2024-10-24] MEDS: ONDANSETRON INJ 2 MG/ML 2 ML VIAL IV PRN (13:45)
--- NOTE | 2024-10-24 17:19 | Billing Data ---
Date of Service October 24, 2024 Coding Level of Care Code 27172 SUB INP/OBS CARE
--- NOTE | 2024-10-24 17:26 | Hospitalist Progress Note ---
Date of Service October 24, 2024 Assessment & Plan (1) Multifocal pneumonia: (2) Dementia: (3) Acute kidney injury superimposed on chronic kidney disease: (4) CAD (coronary artery disease): Plan Mae Acuna is an 88-year-old female with PMH of dementia, CKD3b, MANJU, CAD, CVA in 2018, HTN, HLD brought in by family due to concern due to 3 aspiration events this month, admitted for management of aspiration pneumonia, multifocal per CT chest. Requires hospitalization for IV antibiotics and medical management/optimization of acute and chronic conditions. Has been medically stable and with overall clinical improvement. Plan to discharge to [facility] for acute rehab tomorrow 10/25/24. #Multifocal pneumonia #Aspiration history Three reported aspiration events earlier this month, becoming more frequent compared to prior months Likely due to a combination of progression of her dementia and residual deficits from her stroke in 2018 Still no fever, chest pain or difficulty in breathing. - CT chest revealing multifocal pneumonia superimposed upon mild pulmonary fibrotic change Continue Augmentin 875mg BID Original BCx have grown Staph capitis in 2/4 bottles, very likely a contaminant, thus vancomycin discontinued Second set of original BCx still negative for growth in over 48hs Additional blood cultures negative for growth at 48hrs as well Ordered sputum cultures: no sample yet Incentive spirometry to use hourly as tolerated - Speech/swallow to evaluated and treat, appreciate recs: Fluoroscopic Swallow Study: no significant reflux or esophageal dysfunction seen Continue minced & moist diet, tolerating well #Dementia #Depression Chronic, likely a contributor to her aspiration risk, see above plan swallow study - Continue memantine, continue lexapro - POA/daughter Arlyn is happy with how pt has been doing, endorses closer to her baseline with mentation and eating than she was prior to current hospitalization #Hx CVA, L-sided (basal ganglia) in 2018 #Generalized deconditioning Possible residual deficits contributing to her overall aspiration risk - continue Aspirin and Plavix - Continue PT/OT #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 Bansal - Creatinine continues to improve: 1.08 -> 1.06 - remains off IVF to prevent fluid overload #Anemia, iron deficiency Hgb 9 -> 9.4 ; MCV ~84 with low ferritin and Fe; no prior documentation in [facility] charts, most recent labs August 2024 Continue ferrous sulfate 325mg oral elixer qAM #MSK pain Likely due to being wheelchair-bound, reportedly uses lidocaine patches at home Continue lidocaine patches for relief Continue PT/OT #Aortic Stenosis Echo from 2021 showing mild-moderate aortic stenosis - Cresc-decresc murmur in R sternal border Echocardiogram 10/22/24 showing progression to moderate aortic stenosis Consider outpatient surveillance with cardiology for progression #HTN, stable - Continue home Lisinopril-HCTZ - metoprolol switched to tartrate 12.5mg BID to be able to be crushed #CAD, non-obstructive Non-obstructive CAD dx in Mar [address] Mack, suggesting troponin elevation due to vasospasm vs transient small vessel obstruction Continue metop tartrate 12.5mg BID; Ismo BID (switched so that this can be crushed) - continue atorvastatin, Aspirin and Plavix #Recurrent UTIs Continue prophylactic macrobid and methenamine hippurate daily #Hypothyroidism: Continue Levothyroxine VTE prophylaxis: Heparin Dispo: continued Med/Surg while here, PT recommending d/c to SNF however daughter/POA Arlyn Carter prefers pt to come home as they have adequate resources and accessibility Admission and Anticipated Discharge Date Admission Date: October 20, 2024 Supervising Physician Co-Signing Physician Notes I personally examined the patient and verified all kyle points of history and exam, discussed case, and agree with decision making with Dr Moon no meaningful HPI or review of systems. Sitting up, nursing staff starting to feed her. No new problems noted. Vitals noted, in general she is resting and appears to be in no distress, breathing comfortably on room air. Speech input noted and appreciated. A/P: 88-year-old female with history of recurrent UTI, CAD nonobstructive, CKD stage III, HTN, HLD, iron deficiency anemia, dementia, CVA with right-sided hemiparesis, hypothyroidism, DM2, here with aspiration pneumonia Seems to be stabilizing to improving - Continue antibiotic coverage with augmentin (Staphylococcus capitis in the 1 set of blood cultures is probably contaminant and repeat blood cultures no growth thus far.) - Speech input greatly appreciated - Follow aortic stenosis as an outpatient -Improving, for SNF, probably tomorrow. Case management assistance appreciated. Subjective Mae was seen and evaluated at bedside this AM, feeling "fine" again. States she denies any pain or discomfort, continues to be satting well on room air. Continues to any chest pain, SOB, pain with deep breath, or cough with sputum. Continues to be afebrile with stable vitals, no reported body aches or chills. Has been tolerating new minced and moist diet with pills well. Physical Exam Physical Exam: Constitutional: A&Ox3 with name, , and location but not sure why; no acute distress HEENT: missing upper dentition, missing mandibular incisors, no foreign body seen in mouth or throat; moist oral mucus membranes CV: systolic cresc-decresc murmur in upper R sternal border, otherwise no m/r/g; RRR, soft s1/s2 Respiratory: trace scattered rales throughout lung kaur, no wheeze or rhonchi GI/Abd: +BS, abdomen soft, nondistended, nontender to palpation MSK: b/l LE in flexed position, resting on R side, no gross deformities noted Neuro: no facial droop, no obvious focal deficits, wiggles toes Results & Data Results & Data Vital Signs (Past 12 Hours) Vital Signs Temp Pulse Resp BP BP Pulse Ox O2 Del Method 10/24/24 15:20 36.5 C 61 18 143/80 H 92 Room Air 10/24/24 10:05 36.5 C 65 16 180/67 H 95 Room Air 10/24/24 08:30 Room Air Resident Activity Tracking Resident Involvement: Resident Care Provided Care Provided: Adult Hospital Medicine (2) Dementia Dementia behavioral or psychological symptom: unspecified whether behavioral, psychotic, or mood disturbance or anxiety Dementia severity: unspecified severity Dementia type: unspecified type Qualified Code(s): F03.90 - Unspecified dementia, unspecified severity, without behavioral disturbance, psychotic disturbance, mood disturbance, and anxiety (4) CAD (coronary artery disease) Associated angina: unspecified whether angina present Coronary Disease- Associated Artery/Lesion type: unspecified vessel or lesion type [place] vs. transplanted heart: [place] heart Qualified Code(s): I25.10 - Atherosclerotic heart disease of [place] coronary artery without angina pectoris
--- NOTE | 2024-10-25 10:34 | Discharge Summary ---
Date of Service October 25, 2024 Admission HPI Per Admitting Provider This is an 88-year-old female with PMH of Recurrent UTI, CKD, HTN, HLD, brought in by family due to concern for aspiration. Patient was in the room and family members had left already. Mae has h/o dementia and she could answer some questions. History was gathered from ER notes as patient was not able to provide proper history. Patient was on vacation on October 05 until the patient had a choking episode followed by an episode of vomiting while she was laying down in bed. Her daughter tried to clear her airway and continue to closely monitor her mother over the next several days. She states over the course of the last week they have noted increased fatigue, a more productive cough, and a decreased appetite. They have not noted any fevers or chills, any increased confusion, any change in bowel or bladder function. Patient is chronically wheelchair- bound due to a contracture in the right lower extremity secondary to the stroke in 2018 additionally. They state patient has never had a prior EGD or swallow study. She does have a history of some reflux. They state they have noticed over the last week 3 choking episodes with her pills additionally. They have not noticed any difficulty with any of her foods and is not altered or changed her diet in any way. Admission Exam Per Admitting Provider Constitutional: Well appearing, No acute distress, PILCCOD: Negative HEENT: Atraumatic, Normocephalic, No conjunctival injection CVS: S1 S2 no murmur, Regular Rhythm, no LE edema Respiratory: BL equal air entry with NVBS. No rhonchi, wheezes, or crackles. No increased work of breathing GI: Soft, Nondistended, Nontender, Normal Bowel sounds + MSK: No gross deformities noted Skin: Warm, Dry, No rashes Neuro: Alert, Oriented to TPP, No Focal deficit Psych: Mood and Affect congruent, Cooperative on exam Principal Diagnosis aspiration pneumonia, dementia Discharge Exam Constitutional: A&Ox3 with name, , and location but not sure why; no acute distress HEENT: missing upper dentition, missing mandibular incisors, no foreign body seen in mouth or throat; moist oral mucus membranes CV: systolic cresc-decresc murmur in upper R sternal border, otherwise no m/r/g; RRR, soft s1/s2 Respiratory: trace scattered rales throughout lung kaur, no wheeze or rhonchi GI/Abd: +BS, abdomen soft, nondistended, nontender to palpation MSK: b/l LE in flexed position, resting on R side, no gross deformities noted Neuro: no facial droop, no obvious focal deficits, wiggles toes Discharge Data Allergies Allergy/AdvReac Type Severity Reaction Status Date / Time cefpodoxime [From Vantin] Allergy Unknown Unknown Verified 06/29/22 07:43 Sulfa (Sulfonamide Allergy Unknown Unknown Verified 06/29/22 07:43 Antibiotics) sulfamethoxazole Allergy Rash Verified 06/29/22 07:43 [From Bactrim] trimethoprim [From Bactrim] Allergy Rash Verified 06/29/22 07:43 Consultations 10/20/24 20:57 ED Decision to Admit Stat Ordered Studies 10/20/24 18:30 CT chest diagnostic wo con Stat 10/23/24 09:30 FL video swallow Routine Hospital Course (1) Multifocal pneumonia: (2) Dementia: (3) Acute kidney injury superimposed on chronic kidney disease: (4) CAD (coronary artery disease): [place] Mae Acuna is an 88-year-old female with PMH of dementia, CKD3b, MANJU, CAD, CVA in 2018, HTN, HLD brought in by family due to concern due to 3 aspiration events this month, admitted for management of aspiration pneumonia, multifocal per CT chest. Requires hospitalization for antibiotics and medical management/optimization of acute and chronic conditions. Has been medically stable and with overall clinical improvement. Plan to discharge to [place] for acute rehab today 10/25/24. #Multifocal pneumonia #Aspiration history Three reported aspiration events earlier this month, becoming more frequent compared to prior months Likely due to a combination of progression of her dementia and residual deficits from her stroke in 2018 Still no fever, chest pain or difficulty in breathing. - CT chest revealing multifocal pneumonia superimposed upon mild pulmonary fibrotic change Continue Augmentin 875mg BID through 10/28/24 Original BCx have grown Staph capitis in 2/4 bottles, very likely a contaminant, thus vancomycin discontinued All other BCx negative at 48hrs - Speech/swallow to evaluated and treat, appreciate recs: Fluoroscopic Swallow Study: no significant reflux or esophageal dysfunction seen Continue minced & moist diet, tolerating well #Dementia #Depression Chronic, likely a contributor to her aspiration risk, see above plan swallow study - Continue memantine, continue lexapro - POA/daughter Arlyn is happy with how pt has been doing, endorses closer to her baseline with mentation and eating than she was prior to current hospitalization #Hx CVA, L-sided (basal ganglia) in 2018 #Generalized deconditioning Possible residual deficits contributing to her overall aspiration risk - continue Aspirin and Plavix - Continue PT/OT #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 Bansal - Creatinine continues to improve: 1.08 -> 1.06 Check BMP in about a week #Anemia, iron deficiency Hgb 9 -> 9.4 ; MCV ~84 with low ferritin and Fe; no prior documentation in [facility] charts, most recent labs August 2024 Continue ferrous sulfate daily Check iron studies in 1-2mos #MSK pain Likely due to being wheelchair-bound, reportedly uses lidocaine patches at home Continue lidocaine patches for relief Continue PT/OT #Aortic Stenosis Echo from 2021 showing mild-moderate aortic stenosis - Cresc-decresc murmur in R sternal border Echocardiogram 10/22/24 showing progression to moderate aortic stenosis Consider outpatient surveillance with cardiology for progression #HTN, stable - Continue home Lisinopril-HCTZ - metoprolol switched to tartrate 12.5mg BID to be able to be crushed #CAD, non-obstructive Non-obstructive CAD dx in Mar [address] Mack, suggesting troponin elevation due to vasospasm vs transient small vessel obstruction Continue metoprolol succinate and isosorbide mononitrate, resume home meds - continue atorvastatin, Aspirin and Plavix #Recurrent UTIs Continue prophylactic macrobid and methenamine hippurate daily #Hypothyroidism: Continue Levothyroxine VTE prophylaxis: Heparin Dispo: d/c to [place] for acute rehab Total Time Total Time Spent Total Time Spent (In Minutes): <30 Discharge Plan Discharge Items Patient Disposition: Transfer Inpatient Rehab Fac Reason For Visit: ASPIRATION Discharge Diagnosis: aspiration pneumonia, weakness Condition on Discharge: Fair Activity: Per Instructions section Non-emergency contact: Primary Care Provider Call non-emergency contact if: your symptoms worsen and your pain is not controlled Follow-up/Referrals: Lorena Paz [Primary Care Provider] - Diet: Regular Addtl Attending Provider Instructions: You were evaluated and treated at [facility] for aspiration pneumonia, decreased oral intake, and weakness. You have been receiving IV hydration while having limited oral intake, but you have been improving with regard to hydration status and dietary intake. Based on swallow study, you were not having notable reflux or regurgitation, thus diet was advanced from puree to minced & moist. You were additionally transitioned from IV to oral antibiotics based on improved oral intake without notable aspiration while here. Due to your continued medical stability and clinical improvement, we are comfortable with your discharge to [facility] acute rehab today 10/25/24. #Multifocal pneumonia #Aspiration history Three reported aspiration events earlier this month, becoming more frequent compared to prior months Likely due to a combination of progression of her dementia and residual deficits from her stroke in 2018 Still no fever, chest pain or difficulty in breathing. - CT chest revealing multifocal pneumonia superimposed upon mild pulmonary fibrotic change -> Continue Augmentin 875mg twice daily through 10/28/24 Original blood cultures have grown Staph capitis in 2/4 bottles, a skin contaminant, thus vancomycin discontinued - Second set of original BCx still negative for growth in over 48hs; additional blood cultures negative for growth at 48hrs Fluoroscopic Swallow Study: no significant reflux or esophageal dysfunction seen - Diet advanced from puree -> minced & moist, tolerating well #Dementia #Depression Chronic, likely a contributor to aspiration risk, see above plan swallow study - Continue memantine, continue lexapro #Hx CVA, L-sided (basal ganglia) in 2018 #Generalized deconditioning Possible residual deficits contributing to her overall aspiration risk - Continue Aspirin and Plavix - Continue PT/OT #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 Bansal - Creatinine continues to improve: 1.18 -> 1.08 - consider BMP next week to check in on kidney function #Anemia, iron deficiency Hgb 9 -> 9.4 ; MCV ~84 with low ferritin and Fe; no prior documentation in [facility] charts, most recent labs August 2024 Continue ferrous sulfate 325mg oral #MSK pain Likely due to being wheelchair-bound, reportedly uses lidocaine patches at home Continue lidocaine patches for relief Continue PT/OT #Aortic Stenosis Echo from 2021 showing mild-moderate aortic stenosis - Cresc-decresc murmur in R sternal border Echocardiogram 10/22/24 showing progression to moderate aortic stenosis Consider outpatient surveillance with cardiology for progression #HTN, stable - Continue home Lisinopril-HCTZ - May resume her home metoprolol succinate as she's been able to swallow well #CAD, non-obstructive Non-obstructive CAD dx in Mar [address] Mack, suggesting troponin elevation due to vasospasm vs transient small vessel obstruction Continue metoprolol succinate and isosorbide mononitrate - continue atorvastatin, Aspirin and Plavix #Recurrent UTIs Continue prophylactic macrobid and methenamine hippurate daily #Hypothyroidism: Continue Levothyroxine Pending Studies at Discharge: No Stand-Alone Forms: My [facility] Skilled Items Patient informed of condition?: Yes DNR: No Discharge Level of Care: Acute rehab Communicable Disease: No Discharge Prognosis: Improving Lines: None Urinary Catheter: No Medications and DC Order Prescriptions: New amoxicillin-pot clavulanate 875-125 mg Tablet 1 tab PO BIDM Qty: 7 0RF Rx Instructions: Please take your PM dose (1 tablet) with dinner 10/25/24, then take with breakfast and dinner (1 tablet each) through Wednesday10/28/24 to complete your antibiotic course. ferrous sulfate 325 mg (65 mg iron) tablet 325 mg PO DAILY Qty: 30 0RF Continued methenamine hippurate 1 gram tablet 1 g PO DAILY Qty: 90 3RF nitrofurantoin macrocrystal 50 mg capsule 50 mg PO DAILY Qty: 90 3RF acetaminophen [Tylenol Extra Strength] 500 mg Tablet 1,000 mg PO DIRECTED PRN (Reason: Pain) atorvastatin 40 mg tablet 40 mg PO HS levothyroxine 137 mcg tablet 137 mcg PO DAILY sucralfate 1 gram tablet 1 g PO HS isosorbide mononitrate 30 mg tablet extended release 24 hr 30 mg PO QAM clopidogrel 75 mg tablet 75 mg PO DAILY pantoprazole 40 mg tablet,delayed release (DR/EC) 40 mg PO QAM aspirin 81 mg tablet,chewable 81 mg PO DAILY metoprolol succinate 25 mg tablet extended release 24 hr 25 mg PO DAILY lisinopril-hydrochlorothiazide 10-12.5 mg tablet 1 tab PO DAILY escitalopram oxalate 20 mg tablet 20 mg PO DAILY memantine 10 mg tablet 10 mg PO BID Discharge Orders: Discharge Order (Routine); Ordered 10/25/24 Ordered By: Christos Malik/Other Patient Handouts: Dysphagia Aspiration, Dysphagia Aspiration Tx Admission Data Admit Date/Time: 10/20/24 22:29 Attending Provider: Shai Bailey Admit Provider: Shannan Esteban Primary Care Provider: Lorena Paz Other Providers: Faiza Sheffield; Katie Martinez at [facility] Other Interventions: Discharge Summary Assessment (RN) Last Done: 10/25/24 13:16 Supervising Physician Co-Signing Physician Notes I personally examined the patient and verified all kyle points of history and exam, discussed case, and agree with decision making with Dr Moon no meaningful HPI or review of systems. Sleeping comfortably. No new problems noted. Vitals noted, in general she is resting and appears to be in no distress, breathing comfortably on room air. Speech input noted and apprecia harini. A/P: 88-year-old female with history of recurrent UTI, CAD nonobstructive, CKD stage III, HTN, HLD, iron deficiency anemia, dementia, CVA with right-sided hemiparesis, hypothyroidism, DM2, here with aspiration pneumonia Seems to be stabilizing to improving - Continue antibiotic coverage with augmentin (Staphylococcus capitis in the 1 set of blood cultures is probably contaminant and repeat blood cultures no growth thus far.) - Speech input greatly appreciated - Follow aortic stenosis as an outpatient -Improving, for SNF today Resident Activity Tracking Resident Involvement: Resident Care Provided Care Provided: Adult Hospital Medicine
--- NOTE | 2024-10-25 12:59 | Billing Data ---
Date of Service October 25, 2024 Coding Level of Care Code 11556 IN/OBS DISCH 30 MIN/LESS
[2024-10-25 15:30] VITALS: BP 138/73; PULSE 59; RESP 18; TEMP 97.7; O2SAT 93
== END 2024-10-25 17:57 | DRG 178 ==
LOC: ED 16:57 → SUATTDRO 22:29 → EDINP 22:29 → 3N 10-21 00:46
DX: I35.0 Nonrheumatic aortic (valve) stenosis; F03.90 Unspecified dementia, unspecified severity, without behavioral disturbance, psychotic disturbance, mood disturbance, and anxiety; Z79.890 Hormone replacement therapy; I25.10 Atherosclerotic heart disease of native coronary artery without angina pectoris; Z87.440 Personal history of urinary (tract) infections; I25.2 Old myocardial infarction; Z79.82 Long term (current) use of aspirin; Z79.02 Long term (current) use of antithrombotics/antiplatelets; M79.10 Myalgia, unspecified site; Z79.899 Other long term (current) drug therapy; J69.0 Pneumonitis due to inhalation of food and vomit; D50.9 Iron deficiency anemia, unspecified; E03.9 Hypothyroidism, unspecified; I12.9 Hypertensive chronic kidney disease with stage 1 through stage 4 chronic kidney disease, or unspecified chronic kidney disease; Z99.3 Dependence on wheelchair; E78.5 Hyperlipidemia, unspecified; N18.32 Chronic kidney disease, stage 3b; F32.A Depression, unspecified; E11.22 Type 2 diabetes mellitus with diabetic chronic kidney disease; I69.351 Hemiplegia and hemiparesis following cerebral infarction affecting right dominant side; N17.9 Acute kidney failure, unspecified; Z88.1 Allergy status to other antibiotic agents; Z88.2 Allergy status to sulfonamides